=== PATIENT | female | born 1960 | race Caucasian/White ===

== ENCOUNTER → 2017-12-23 | Outpatient (CLI) | payer OTHER ==
--- NOTE | 2017-12-23 20:46 | MR ---
MR right elbow HISTORY: Abnormal bone growth, pain and swelling, limited range of motion Multiplanar multisequence imaging through the right elbow Correlation to plain film 11/22/2017 The calcification noted anterior to the elbow joint shows a corresponding focus which follows fat sig nal on all pulse sequences and measures 18 mm in greatest dimension osteoarthritic changes are noted within the elbow with marginal spurring, there is chondromalacia especially at the radial head grade 3 as well at the level of the coronoid process as there is likely grade 3 to grade IV chondromalacia with spurring. There is a normal insertion of triceps tendon, long head of biceps tendon. There is no rmal joint effusion. There is abnormal thickening of the soft tissues posterior to the elbow joint, s ome local fluid signal is present suggesting local cellulitis, phlegmon formation. No evident osteomy elitis. IMPRESSION: Osteoarthritis. Area of possible fat necrosis anterior to the elbow joint with peripheral calcification noted on plain film. Correlate for cellulitis, phlegmon posterior to the elbow.
== END | disposition home or self-care (01) ==
LOC: RADMRIMAIN 19:02
PROVIDERS: ATTEND Orthopaedic Surgery Hand Surgery
DX: M19.021 Primary osteoarthritis, right elbow (principal); Z48.89 Encounter for other specified surgical aftercare; Z98.890 Other specified postprocedural states

== ENCOUNTER 2018-07-22 08:36 | Day surgery (SDC) | payer OTHER ==
[2018-07-20 09:09] VITALS: BMI 33.8
[~2018-07-22 08:36] MED LIST: LACTATED RINGERS 1,000 ML IV SCH; LIDOCAINE 1% 20 ML VIAL (10MG/ML) FOR IV START INTRADERMA PRN
[2018-07-22 08:55] VITALS: RESP 18; TEMP 97.8
[2018-07-22 09:06] LABS: Glucose,Whole Blood 95 mg/dL (75-99)
[2018-07-22] MEDS ORDERED: LACTATED RINGERS 1,000 ML IV ONE (09:07)
[2018-07-22] MEDS ORDERED: LIDOCAINE 1% INJ 10MG/ML (20 ML MDV) ONE (09:48)
[2018-07-22] MEDS ORDERED: PROPOFOL 10 MG/ML 20 ML VIAL IV ONE (09:48)
--- NOTE | 2018-07-22 10:00 | P.PCN ---
Date of Procedure: 07/22/18 Procedure(s) Performed: BRIEF HISTORY: Patient is a 57-year-old, pleasant, white female, scheduled for an upper endoscopy as part of evaluation of long-standing history of GERD of several years duration. He said she has been having worsening symptoms. She has been on Prilosec 40 mg twice daily and Carafate 1 g 4 times daily with some improvement in his symptoms. She is scheduled for an upper endoscopy to rule out complicated reflux disease PROCEDURE PERFORMED: Esophagogastroduodenoscopy With biopsy PREOPERATIVE DIAGNOSIS: Long-standing history of GERD. IV sedation per anesthesia. PROCEDURE: After informed consent was obtained, the patient was brought into the endoscopy unit. IV sedation was administered by Anesthesia under continuous monitoring. Initially the Olympus GIF-140 video endoscope was inserted into the mouth. Esophagus intubated without any difficulty. It was gradually advanced into the stomach and duodenum and carefully examined. The bulb and the second part of the duodenum appeared normal. The scope at this time was withdrawn to the stomach, adequately insufflated with air, and upon careful examination, mucosa of the antrum linear tear severe erythema consistent with gastritis and biopsies were done from this area. The body, cardia and the fundus appeared normal. The scope was then withdrawn into the esophagus. Small to moderate size hiatal hernia noted. The GE junction was located at 36 cm from the incisors. The esophagus appeared normal. There were no erosions or ulcerations seen and the patient tolerated the procedure well. IMPRESSION: 1. Linear erythema in the antrum consistent with mild antral gastritis . 2. Small hiatal hernia but no evidence of esophagitis or Morris's esophagus]. RECOMMENDATIONS: The findings of this examination were discussed with the patient as well as her family. She was advised to follow with the biopsy results. She will continue with her current medications and follow antireflux measures
[2018-07-22 10:34] VITALS: BP 118/72; PULSE 69
== END 2018-07-22 10:45 | disposition home or self-care (01) ==
LOC: ORWHC2ENDO 08:36
PROVIDERS: ATTEND Internal Medicine Gastroenterology
DX: K21.9 Gastro-esophageal reflux disease without esophagitis (principal); K29.50 Unspecified chronic gastritis without bleeding; K44.9 Diaphragmatic hernia without obstruction or gangrene; J44.9 Chronic obstructive pulmonary disease, unspecified; E07.9 Disorder of thyroid, unspecified; Z79.890 Hormone replacement therapy; Z79.1 Long term (current) use of non-steroidal anti-inflammatories (NSAID); Z79.51 Long term (current) use of inhaled steroids; Z79.899 Other long term (current) drug therapy; Z88.6 Allergy status to analgesic agent; Z91.011 Allergy to milk products
CPT/HCPCS: 88305; 43239; J2001; J2704

== ENCOUNTER → 2018-09-21 | Outpatient (CLI) | payer OTHER ==
--- NOTE | 2018-09-21 15:58 | MR ---
EXAMINATION TYPE: MR shoulder RT wo con DATE OF EXAM: 09/21/2018 COMPARISON: Prior right shoulder MRI 04/24/2010 HISTORY: Rt. shoulder pain TECHNIQUE: Multiplanar, multisequence imaging of the right shoulder is performed without contrast. FINDINGS: Rotator Cuff: There is abnormal increased signal present at the insertion of the rotator cuff, partia l full-thickness tear of the supraspinatus tendon present, possible rim rent tear noted, there is abn ormal thickening of the rotator cuff fluid signal and irregularity of the tendon near the insertion. Acromioclavicular Joint: Arthropathy at the acromioclavicular joint causes mass effect on the musculo tendinous junction of supraspinatus. Glenohumeral Joint: There is some arthropathy change, remodeling of humeral head compatible with unde rlying arthropathy. Labrum: There is abnormal signal within the bony labrum, interval development of subchondral geodes i s suspected, labrum is irregular, suspect tear may be present on axial image 15 posterior labrum, dif ficult to exclude SLAP lesion, superior labrum shows a frayed appearance. . Biceps Tendon: Long head of biceps tendon shows a normal position which shows fluid signal surroundin g it. Bone marrow signal: Some probable pseudocyst formation present within the humeral head, previously de scribed cystic foci present within the bony labrum. Other: Possible distal acromial spur, there is a joint effusion IMPRESSION: Findings compatible with partial full-thickness tear the rotator cuff. Arthropathy glenohumeral joint with possible labral tear as described.
== END | disposition home or self-care (01) ==
LOC: RADMRIMAIN 12:18
PROVIDERS: ATTEND Orthopaedic Surgery
DX: M19.011 Primary osteoarthritis, right shoulder (principal); R53.1 Weakness; E03.9 Hypothyroidism, unspecified; D64.9 Anemia, unspecified; Z86.79 Personal history of other diseases of the circulatory system

== ENCOUNTER → 2019-05-31 | Outpatient (CLI) | payer OTHER ==
--- NOTE | 2019-05-31 14:03 | BD ---
EXAMINATION TYPE: Axial Bone Density DATE OF EXAM: 05/31/2019 COMPARISON: NONE CLINICAL HISTORY: Vitamin D deficiency, unspecified Height: 59 inches Weight: 182 FRAX RISK QUESTIONS: Alcohol (3 or more units per day): no Family History (Parent hip fracture): no Glucocorticoids (More than 3mos): yes, asthma inhaler (Ex: prednisone, prednisolone, methylprednisolone, dexamethasone, and hydrocortisone). History of Fracture in Adulthood: yes Secondary Osteoporosis: 1. Type 1 Diabetes: no 2. Hyperthyroidism: no 3. Menopause before 45: no 4. Malnutrition: no 5. Chronic liver disease: no Rheumatoid Arthritis: no Current Tobacco Use: no RISK FACTORS HISTORY OF: Family History of Osteoporosis: patient not aware of any Active: yes Diet low in dairy products/other sources of calcium: yes, milk protein allergy Postmenopausal woman: yes Take estrogen and/or progesterone medications: no Lost more than 2 inches in height since high school: no, not MORE than 2 inches states height at one time was about 5 ft-1 inch Frequent falls: patient states she can fall easily on rough ground outside, her balance is not there anymore on her left side Poor Health:" for the most part god health" Hyperparathyroidism: no Adrenal Insufficiency: no MEDICATIONS: Prednisone or other steroids: yes, asthma inhaler How Long: about 10 years Thyroid Medications: yes Which medication: Synthroid How Long: about 3-4 years Osteoporosis Medications: no Additional Medications: cholesterol med, Vitamin D Additional History: vitamin D deficiency, osteoarthritis, gout, high blood calcium EXAM MEASUREMENTS: Bone mineral densitometry was performed using the [employer] System. Bone mineral density as measured about the Lumbar spine is: ----- L1-L4(G/cm2): 1.368 T Score Values are as follows: ----- L2: 0.5 ----- L3: 2.3 ----- L4: 2.3 ----- L1-L4: 1.6 Bone mineral density BASELINE Bone mineral density about the R hip (g/cm2): 0.926 Bone mineral density about the L hip (g/cm2): 0.975 T Score values are as follows: -----R Neck: -0.8 -----L Neck: -0.5 -----R Total: -0.5 -----L Total: -0.5 Bone mineral density BASELINE IMPRESSION: Normal (Values between +1 and -1 indicate normal bone mass). Consider repeating this study in 5 year s or sooner if there is some new clinical indication. NOTE: T-SCORE=SD OF THE YOUNG ADULT MEAN.
== END | disposition home or self-care (01) ==
LOC: RADBDWWP 07:11
PROVIDERS: ATTEND Internal Medicine Endocrinology, Diabetes & Metabolism
DX: E55.9 Vitamin D deficiency, unspecified (principal)
CPT/HCPCS: 77080

== ENCOUNTER 2019-07-22 00:15 | Inpatient (IN) | payer OTHER ==
[2019-07-22] MEDS ORDERED: ACETAMINOPHEN TAB 325 MG TAB PO PRN (00:44)
[2019-07-22] MEDS ORDERED: VANCOMYCIN IV PER PHARMACY 1 EACH MISC MISCELLANE PRN (00:49)
[2019-07-22] MEDS ORDERED: VANCOMYCIN TROUGH DUE 1 EACH MISC MISCELLANE ONE (00:49)
[2019-07-22 01:06] VITALS: BMI 77.9
[2019-07-22] MEDS: PIPERACILLIN-TAZOBACTAM 3.375 GM in SODIUM CHLORIDE 0.9% 100 ML IVPB SCH ×3 (03:05→17:18)
[2019-07-22] MEDS: VANCOMYCIN 1,250 MG in SODIUM CHLORIDE 0.9% 250 ML IVPB SCH ×2 (04:42→16:30)
[2019-07-22 06:35] LABS: Appearance,Urine Clear (Clear); Bilirubin,Urine Negative (Negative); Blood,Urine Negative (Negative); Color,Urine Yellow; Glucose,Urine (UA) Negative (Negative); Ketones,Urine Negative (Negative); Leukocyte Esterase,Urine Negative (Negative); Nitrite,Urine Negative (Negative); PH, Urine 5.5 (5.0-8.0); Protein,Urine Negative (Negative); Specific Gravity,Urine 1.013 (1.001-1.035); Urobilinogen,Urine <2.0 mg/dL (<2.0)
[2019-07-22] MEDS: FUROSEMIDE 40 MG TAB PO SCH ×2 (08:16→15:12)
[2019-07-22] MEDS: GABAPENTIN 100 MG CAP PO SCH ×2 (08:16→11:50)
[2019-07-22] MEDS: ALLOPURINOL 300 MG TAB PO SCH (08:16)
[2019-07-22] MEDS: SYMBICORT 160-4.5 MCG INHALER INHALATION SCH ×2 (08:17→18:49)
[2019-07-22] MEDS: COLCHICINE 0.6 MG EACH PO SCH (08:17)
[2019-07-22] MEDS: THEOPHYLLINE 24 HOUR 300 MG CAP.ER.24H PO SCH (08:17)
[2019-07-22] MEDS: POTASSIUM BICARBONATE/CIT AC 20 MEQ TABLET.EFF PO SCH ×5 (08:17→20:28)
[2019-07-22] MEDS: SUCRALFATE 1 GM TAB PO SCH ×4 (08:18→20:30)
[2019-07-22] MEDS: PANTOPRAZOLE 40 MG TABLET PO SCH (08:24)
[2019-07-22 09:00] LABS: Anisocytosis Slight; Basophils # (A) 0.1 k/uL (0-0.2); Basophils % (A) 1 %; Eosinophils # (A) 0.1 k/uL (0-0.7); Eosinophils % (A) 2 %; HCT 34.3 % (34.0-46.0); Lymphocytes # (A) 0.4 k/uL (1.0-4.8); Lymphocytes % (A) 5 %; MCH 28.3 pg (25.0-35.0); MCHC 32.1 g/dL (31.0-37.0); MCV 88.3 fL (80.0-100.0); Mean Platelet Volume 6.7; Monocytes # (A) 0.3 k/uL (0-1.0); Monocytes % (A) 4 %; Neutrophils # (A) 6.2 k/uL (1.3-7.7); Neutrophils % (A) 88 %; Platelet Count 187 k/uL (150-450); RBC 3.88 m/uL (3.80-5.40); RDW 16.9 % (11.5-15.5); WBC 7.1 k/uL (3.8-10.6)
[2019-07-22] MEDS ORDERED: LEVOTHYROXINE 25 MCG TAB PO SCH (09:00)
[2019-07-22 09:08] LABS: African American GFR (CKD) >90 (>60 ml/min/1.73 sqM); Anion Gap 9 mmol/L; Blood Urea Nitrogen 12 mg/dL (7-17); Calcium 8.6 mg/dL (8.4-10.2); Carbon Dioxide 22 mmol/L (22-30); Chloride 106 mmol/L (98-107); Glucose 224 mg/dL (74-99); Sodium 137 mmol/L (137-145)
--- NOTE | 2019-07-22 14:58 | XR ---
EXAMINATION TYPE: XR tibia fibula RT DATE OF EXAM: 07/22/2019 CLINICAL HISTORY: pain TECHNIQUE: AP and lateral images of the right tibia and fibula are obtained. COMPARISON: None. FINDINGS: There is no acute fracture/dislocation evident. The joint spaces appear mildly narrowed. The overlying soft tissue appears unremarkable. IMPRESSION: There is no acute fracture or dislocation seen. ICD 10 NO FRACTURE, INITIAL EVALUATION
--- NOTE | 2019-07-22 15:14 | HP ---
HISTORY AND PHYSICAL DATE OF SERVICE: 07/22/2019 CHIEF COMPLAINT: Pain and swelling of the right calf area. HISTORY OF PRESENT ILLNESS: This is a 58-year-old woman with a past history of asthma, COPD, GERD, hypertension, hyperlipidemia, history of hypoglycemia, history of gout, hiatal hernia, history of nicotine dependence, being followed by primary physician elsewhere, was complaining of right leg pain and swelling. The patient also had headache, fever, and other medical issues and patient in [facility]. The patient was treated with some possible sepsis. The patient also had lactic acidosis at 4.1 with IV fluids improved to 1.4, but; however, a lumbar puncture could not be completed and the patient was referred to [facility] for further evaluation and treatment. Encephalitis also suspected at this time. Broad-spectrum IV antibiotics has been initiated. There is no history of any headache, loss of consciousness, nausea or chest pain or hematochezia or melena at this time. The patient had puncture at work, a broken fiberglass cart hit her calf according to her. The patient is followed by Nika Aranda in the outpatient setting. PAST MEDICAL HISTORY: History of asthma, COPD, GERD, hyperlipidemia, DJD, hypothyroid, hypoglycemia, gout. MEDICATIONS: Prior to admission include, home medications are: 1. level Xopenex HFA 4 puffs q.4 p.r.n. 2. Theophylline 300 mg p.o. b.i.d. 3. Bactrim DS 1 p.o. b.i.d. which was started recently for the infection. 4. Carafate 1 g p.o. q.i.d. 5. Zocor 40 mg q.h.s. 6. Mirapex 0.5 mg q.h.s. 7. Prilosec 20 mg p.o. b.i.d. 8. Singulair 10 mg q.h.s. 9. Mobic 15 mg p.o. q.a.m. 10.Synthroid 50 mcg p.o. daily. 11.Neurontin 300 mg p.o. q.h.s. 12.Lasix 40 mg p.o. b.i.d. 13.Colcrys 0.6 mg p.o. daily. 14.Symbicort 160/4.5 two puffs b.i.d. 15.Zyloprim 600 mg q.a.m. ALLERGIES: MILK, ASPIRIN. FAMILY HISTORY: History of lung cancer in the family. SOCIAL HISTORY: Previous history of smoking. No history of current smoking or alcohol intake. REVIEW OF SYSTEMS: ENT: No diminished hearing, diminished vision. CARDIOVASCULAR: No angina. RESPIRATION: No cough. GI: As mentioned earlier. : No dysuria. NERVOUS SYSTEM: No numbness or weakness. ALLERGY/IMMUNOLOGY: As mentioned earlier. HEMATOLOGY/ONCOLOGY: No history of anemia. ENDOCRINE: No history of diabetes or hypothyroidism. CONSTITUTIONAL: As mentioned earlier. DERMATOLOGY: Negative. PSYCHIATRY: As mentioned earlier. PHYSICAL EXAMINATION: Alert and oriented x3, pulse 78, blood pressure 107/64, respiration 18, temperature 99.2, pulse ox 96% on room air. HEENT: Conjunctivae normal. Oral mucosa moist. NECK: No jugular venous distention. No lymph node enlargement. CARDIOVASCULAR SYSTEM: S1, S2, muffled. RESPIRATORY: Breath sounds diminished at the bases. A few scattered rhonchi, no crackles. Expiratory wheezing also present. ABDOMEN: Soft, nontender. No mass palpable. LEGS: Right calf area tenderness and erythema. Evidence of cellulitis and possible abscess. Otherwise, pulse felt normally. NERVOUS SYSTEM: Higher functions as mentioned earlier. Moves all 4 limbs. No focal motor deficits. LYMPHATICS: No lymph node enlargement in the neck or axillae. SKIN: As mentioned earlier. JOINTS: No active arthropathy. LABS: WBC is 7.2, hemoglobin is 11, sodium 130, potassium 3. ASSESSMENT: 1. Right calf infection, cellulitis, possible abscess with sepsis, present on admission. 2. Hypokalemia. 3. Anemia, normocytic anemia of chronic disease. 4. Increased random blood sugar, possibly diabetes mellitus type 2. 5. History of asthma. 6. History of chronic obstructive pulmonary disease. 7. Gastroesophageal reflux disease. 8. Hyperlipidemia. 9. History of degenerative joint disease. 10.History of hypothyroidism. 11.History of gout. 12.History of hiatal hernia. 13.History of adenoidectomy. 14.History of degenerative joint disease. 15.Remote history of nicotine dependence. RECOMMENDATION: In this 58-year-old woman who presented with multiple complex medical issues, will monitor the patient closely, continue with the current management and symptomatic treatment. We will initiate broad-spectrum IV antibiotics and I would also recommend Orthopedic Surgery evaluation. I would also recommend x-ray of the calf to rule out the possibility of a foreign body as well. The prognosis guarded because of multiple complex medical issues. The patient is on Zosyn and vancomycin. See orders. Will obtain the cultures, resume the home medications. Monitor blood sugars closely. Will check the hemoglobin A1c to rule out the possibility of any diabetes mellitus. Otherwise, continue to monitor. Guarded prognosis. A copy of this forwarded to Dr. Nika Aranda who is following the patient. MMODL / IJN: [id number] /
[2019-07-22] MEDS ORDERED: ALBUTEROL NEBULIZED 2.5 MG/3 ML INHALATION PRN (16:00)
--- NOTE | 2019-07-22 17:04 | P.CNOR ---
<José MiguelRadha perry - Last Filed: 07/22/19 16:45> History of Present Illness - [facility] Consult date: 07/22/19 Consult reason: other (Right leg wound/cellulitis) History of present illness: The patient is a 58-year-old female with a history of asthma, COPD, GERD, hypertension, hyperlipidemia, gout, hypoglycemia, and nicotine dependence, who presented to [facility] after transferred from [facility] for possible sepsis. The patient was found to have a leg acid level IV.1 that improved with IV fluids to 1.4. A lumbar puncture was needed and she was transferred here for further evaluation and care. Orthopedics was consulted for further evaluation of her right leg wound. Patient states that she backed into a fiberglass cart at [facility] approximately 2 months ago and cut her right calf. She states that she put a Band-Aid over the area. The area continued to not heal and over the last couple weeks she is applied a salve to draw out the pus. The patient's and the patient states that the area seemed pretty deep and "lots of pus came out of the wound." The patient doesn't also states that she had a fever 2 weeks ago only for a day and fever seemed to resolve after 1 dose of Tylenol. Yesterday, the patient states that she was not feeling well and took her temperature and it was 103 and went to the emergency department at [facility]. Today, the patient states she is feeling slightly better but still has pain upon touch of the right calf. She denies numbness or tingling in the leg and is able to ambulate on the leg without difficulty. The only time she has pain is when pressures directly applied to the area. Review of Systems Constitutional: Reports chills, Reports fever, Reports malaise Cardiovascular: Denies chest pain, Denies shortness of breath Respiratory: Denies cough Gastrointestinal: Denies diarrhea, Denies nausea, Denies vomiting Musculoskeletal: right: as per HPI Past Medical History Past Medical History: Asthma, COPD, GERD/Reflux, Hyperlipidemia, Osteoarthritis (OA), Thyroid Disorder Additional Past Medical History / Comment(s): HYPOGLYCEMIA, GOUT, HIATAL HERNIA, STATES LOW POTASSIUM, STATES SPOT ON HER ESOPHAGUS , HX OF LOW IRON., ARTHRITIS IN KNEES., OCCASIONAL SOB. History of Any Multi-Drug Resistant Organisms: None Reported Past Surgical History: Adenoidectomy, Section, Hysterectomy, Orthopedic Surgery, Tonsillectomy Additional Past Surgical History / Comment(s): Rt hand tendon repair. Left eye "muscle cut". Gera carpal tunnel. Left knee arthroscopy. HEMORROIDECTOMY. Past Anesthesia/Blood Transfusion Reactions: Motion Sickness, Postoperative Na usea & Vomiting (PONV) Past Psychological History: No Psychological Hx Reported Smoking Status: Former smoker Past Alcohol Use History: None Reported Additional Past Alcohol Use History / Comment(s): QUIT SMOKING IN 2006, STARTED SMOKING AGE 13- SMOKED 1 1/2-2PPD Past Drug Use History: None Reported - Past Family History Father Family Medical History: Cancer Additional Family Medical History / Comment(s): LUNG CANCER Mother Family Medical History: Cancer Additional Family Medical History / Comment(s): BLADDER CANCER Medications and Allergies Home Medications Medication Instructions Recorded Confirmed Type Allopurinol [Zyloprim] 600 mg PO QAM 04/13/15 07/22/19 History Budesonide/Formoterol Fumarate 2 puff INHALATION RT-BID 04/13/15 07/22/19 History [Symbicort 160-4.5 Mcg Inhaler] Colchicine [Colcrys] 0.6 mg PO DAILY 04/13/15 07/22/19 History Furosemide [Lasix] 40 mg PO BID 04/13/15 07/22/19 History Gabapentin [Neurontin] 300 mg PO HS 04/13/15 07/22/19 History Meloxicam [Mobic] 15 mg PO QAM 04/13/15 07/22/19 History Montelukast Sodium [Singulair] 10 mg PO HS 04/13/15 07/22/19 History Omeprazole [PriLOSEC] 20 mg PO BID 04/13/15 07/22/19 History Simvastatin [Zocor] 40 mg PO HS 04/13/15 07/22/19 History Sucralfate [Carafate] 1 gm PO QID 04/13/15 07/22/19 History Theophylline 12 Hour [Ishan-Dur] 300 mg PO BID 04/13/15 07/22/19 History Pramipexole [Mirapex] 0.5 mg PO HS 07/20/18 07/22/19 History Levalbuterol Hfa Inhaler [Xopenex 4 puff INHALATION RT-Q4H PRN 07/22/19 07/22/19 History Hfa Inhaler] Levothyroxine Sodium [Synthroid] 50 mcg PO DAILY 07/22/19 07/22/19 History Sulfamethox-Tmp 800-160Mg [Bactrim 1 tab PO BID 07/22/19 07/22/19 History DS 800-160 mg] Allergies Allergy/AdvReac Type Severity Reaction Status Date / Time milk Allergy Dyspnea,swe Verified 07/22/19 08:04 lling aspirin AdvReac Abdominal Verified 07/22/19 08:04 Pain, headache Physical Examination The patient does not appear in acute distress. Alert and orientated x3. There is a small puncture wound to the posterior right leg, in the calf area. There is a scab and no active drainage at this time. There is an erythema surrounding the puncture wound. No focal fluctuance noted or superficial abscess palpated. There is tenderness around the puncture site. Calf is soft and nontender. Good foot and ankle motion without difficulty. Sensation and circulatory status is intact. Results X-rays of the right tib-fib reveal no obvious foreign body or acute fracture seen.. - Labs Labs: Abnormal Lab Results - Last 24 Hours (Table) 07/22/19 07/22/19 Range/Units 08:30 08:30 Hgb 11.0 L (11.4-16.0) gm/dL RDW 16.9 H (11.5-15.5) % Lymphocytes # 0.4 L (1.0-4.8) k/uL Potassium 3.0 L (3.5-5.1) mmol/L Glucose 224 H (74-99) mg/dL H & H 07/22/19 Range/Units 08:30 Hgb 11.0 L (11.4-16.0) gm/dL Hct 34.3 (34.0-46.0) % Result Diagrams: 07/22/19 08:30 07/22/19 08:30 Assessment and Plan (1) Leg wound, right Current Visit: Yes Status: Acute Code(s): S81.801A - UNSPECIFIED OPEN WOUND, RIGHT LOWER LEG, INITIAL ENCOUNTER SNOMED Code(s): 706114475 (2) Cellulitis of right lower leg Current Visit: Yes Status: Acute Code(s): L03.115 - CELLULITIS OF RIGHT LOWER LIMB SNOMED Code(s): 328454658 (3) Sepsis Current Visit: Yes Status: Acute Code(s): A41.9 - SEPSIS, UNSPECIFIED ORGANISM SNOMED Code(s): 12342565 Plan: The clinical and x-ray findings were discussed with the patient and the family at the bedside. The case was also discussed at length with Dr. Stover. We will await recommendations from infectious disease. A CT of the right lower leg will be ordered with contrast to further evaluate for deep abscess. She will be placed NPO tonight pending CT results for possible I &D tomorrow afternoon. We will continue to follow the patient closely and make further recommendations after the CT scan. <Alan Stover - Last Filed: 07/22/19 20:12> Results - Labs Labs: Abnormal Lab Results - Last 24 Hours (Table) 07/22/19 07/22/19 Range/Units 08:30 08:30 Hgb 11.0 L (11.4-16.0) gm/dL RDW 16.9 H (11.5-15.5) % Lymphocytes # 0.4 L (1.0-4.8) k/uL Potassium 3.0 L (3.5-5.1) mmol/L Glucose 224 H (74-99) mg/dL H & H 07/22/19 Range/Units 08:30 Hgb 11.0 L (11.4-16.0) gm/dL Hct 34.3 (34.0-46.0) % Result Diagrams: 07/22/19 08:30 07/22/19 08:30 Assessment and Plan Plan: Discussed with SUSHILA Toledo and agree with above. Patient was subsequently seen and examined by myself as well. S: She states the pain in the leg is quite mild at this point and mostly only bothers her when there is pressure on the wound. O: Small erythematous foci in the posterior aspect of the mid calf approximately 2 cm in diameter. There is no open wound/draining wound. Mild tenderness to palpation. No subcutaneous fluctuance. No pain with active dorsiflexion or plantarflexion. Imaging CT scan of the right leg demonstrates no appreciable abscess or focal fluid collection. No significant fat stranding or or signs of subcutaneous inflammation or edema. No retained foreign bodies identified. A: 1. Right leg pain with remote history of puncture wound P: I discussed the clinical findings in detail with the patient and her family. Her exam and imaging are not at all concerning for significant infectious process. It would be highly unlikely that this would be a source causing a systemic response. Recommended continued observation and symptomatic treatment. I encouraged her to ambulate as tolerated. She may try warm hand or cold compresses for symptomatic relief. No need for surgical intervention at this time. She expressed understanding and agreement with the proposed plan. We will continue to monitor her clinical progress. Thank you for allowing me to participate in the care of this patient. Alan Stover D.O. [facility]
[2019-07-22] MEDS ORDERED: Magnesium Replacement Protocol 1 EACH MISC MISCELLANE PRN (18:07)
[2019-07-22] MEDS ORDERED: Potassium Replacement Protocol 1 EACH MISC MISCELLANE PRN (18:07)
[2019-07-22] MEDS ORDERED: HYDROcodone/APAP 5-325MG 1 EACH TAB PO PRN (18:08)
[2019-07-22] MEDS ORDERED: TEMAZEPAM 15 MG CAP PO PRN (18:08)
[2019-07-22] MEDS ORDERED: ALPRAZolam 0.25 MG TAB PO PRN (18:08)
[2019-07-22] MEDS ORDERED: HYDROmorphone 0.5 MG/0.5 ML SYRINGE IVP PRN (18:08)
--- NOTE | 2019-07-22 18:34 | CT ---
EXAMINATION TYPE: CT lower leg RT w con DATE OF EXAM: 07/22/2019 COMPARISON: None HISTORY: Pt hx of foreign body in RT leg, mid posterior calf. Eval for deep abscess CT DLP: 840.50 mGycm Automated exposure control for dose reduction was used. CONTRAST: Performed with IV Contrast, patient injected with 100 mL of Isovue 300. FINDINGS: Multiple axial sections were obtained from the distal femur to the mid calcaneus without contrast. The tibia and fibula appear intact. There is hypertrophic osteoarthritis of the knee joint with spurr ing of the femoral and tibial condyles. There is small knee joint effusion. Ankle mortise is anatomic . There is spurring on the patella. There are atherosclerotic vascular calcifications. I see no defin ite radiopaque foreign body. There is subcutaneous edema around the lower leg. There is no pathologic fluid collection. There are a few varicose veins of the lower leg. There is no pathologic enhancemen t. There is arterial flow in the popliteal and tibial artery. IMPRESSION: Osteoarthritis in the knee joint. Small knee joint effusion. Minimal subcutaneous edema. No evidence of an abscess.
[2019-07-22] MEDS: HEPARIN SODIUM,PORCINE 5,000 UNIT/ML 1 ML VIAL SQ SCH (20:29)
[2019-07-22] MEDS: MONTELUKAST 10 MG TAB PO SCH (20:29)
[2019-07-22] MEDS: GABAPENTIN 300 MG CAP PO SCH (20:30)
[2019-07-22] MEDS: CITALOPRAM HYDROBROMIDE 10 MG TAB PO SCH (20:30)
[2019-07-22] MEDS: ATORVASTATIN 20 MG TAB PO SCH (20:30)
[2019-07-22] MEDS: PRAMIPEXOLE 0.5 MG TAB PO SCH (20:31)
[2019-07-22 21:05] LABS: Glucose,Whole Blood 122 mg/dL (75-99)
[2019-07-22] MEDS: INSULIN ASPART (NovoLOG) 100 UNIT/ML VIAL SQ SCH (21:19)
[2019-07-22] MEDS: 0.9% NACL WITH KCL 40 MEQ/L 1,000 ML IV SCH (22:22)
[2019-07-23] MEDS: PIPERACILLIN-TAZOBACTAM 3.375 GM in SODIUM CHLORIDE 0.9% 100 ML IVPB SCH ×3 (01:15→19:49)
[2019-07-23 03:53] LABS: Hemoglobin A1C 5.4 % (4.0-6.0)
[2019-07-23] MEDS: VANCOMYCIN 1,250 MG in SODIUM CHLORIDE 0.9% 250 ML IVPB SCH ×2 (06:13→16:46)
[2019-07-23] MEDS: LEVOTHYROXINE 50 MCG TAB PO SCH (06:13)
[2019-07-23 07:12] LABS: Glucose,Whole Blood 125 mg/dL (75-99)
[2019-07-23] MEDS: SYMBICORT 160-4.5 MCG INHALER INHALATION SCH ×2 (07:13→20:20)
[2019-07-23] MEDS: INSULIN ASPART (NovoLOG) 100 UNIT/ML VIAL SQ SCH ×2 (07:33→12:08)
[2019-07-23] MEDS: COLCHICINE 0.6 MG EACH PO SCH (07:34)
[2019-07-23] MEDS: GABAPENTIN 100 MG CAP PO SCH ×2 (07:34→11:27)
[2019-07-23] MEDS: ALLOPURINOL 300 MG TAB PO SCH (07:34)
[2019-07-23] MEDS: THEOPHYLLINE 24 HOUR 300 MG CAP.ER.24H PO SCH (07:34)
[2019-07-23] MEDS: PANTOPRAZOLE 40 MG TABLET PO SCH (07:35)
[2019-07-23] MEDS: HEPARIN SODIUM,PORCINE 5,000 UNIT/ML 1 ML VIAL SQ SCH ×2 (07:35→20:56)
[2019-07-23] MEDS: FUROSEMIDE 40 MG TAB PO SCH ×2 (07:35→15:42)
[2019-07-23] MEDS: POTASSIUM BICARBONATE/CIT AC 20 MEQ TABLET.EFF PO SCH ×4 (07:35→21:06)
[2019-07-23] MEDS: SUCRALFATE 1 GM TAB PO SCH ×4 (07:36→21:05)
[2019-07-23] MEDS: 0.9% NACL WITH KCL 40 MEQ/L 1,000 ML IV SCH ×2 (07:37→19:49)
--- NOTE | 2019-07-23 10:06 | P.PN ---
Subjective Progress Note Date: 07/23/19 Principal diagnosis: Right leg wound The patient is a 58 y/o who presented to the hospital with sepsis and right leg puncture wound. A CT of the right lower leg was obtained yesterday that revealed no fluid collection or deep abscess in the leg. Infectious disease is on consult as well. No surgical intervention is planned from our standpoint. Today, the patient states she is feeling better today. No recent fevers. Pain is controlled at this time. No new complaints today. Objective - Vital Signs Vital signs: Vital Signs Temp 98.7 F 07/23/19 05:30 Pulse 73 07/23/19 05:30 Resp 16 07/23/19 08:00 BP 108/65 07/23/19 05:30 Pulse Ox 98 07/23/19 05:30 Intake & Output 07/22/19 07/23/19 07/23/19 18:59 06:59 18:59 Intake Total 200 Balance 200 Intake: Oral 200 Other: Voiding Method Toilet Toilet Toilet # Voids 2 1 - Exam The patient does not appear in acute distress. She is alert and oriented 3. There is a healing small puncture wound to the posterior leg, in the calf area. There is a scab and no active drainage present. There is erythema surrounding the puncture wound. No focal fluctuance noted or superficial abscess palpated. There is tenderness around the puncture site. Calf is soft and nontender. Good foot and ankle motion without difficulty. Sensation circulatory status is intact. - Labs CBC & Chem 7: 07/22/19 08:30 07/22/19 08:30 Labs: Abnormal Lab Results - Last 24 Hours (Table) 07/22/19 07/23/19 Range/Units 21:04 07:09 POC Glucose (mg/dL) 122 H 125 H (75-99) mg/dL Microbiology - Last 24 Hours (Table) 07/22/19 02:12 Blood Culture - Preliminary Blood No Growth after 24 hours Assessment and Plan (1) Leg wound, right Current Visit: Yes Status: Acute Code(s): S81.801A - UNSPECIFIED OPEN WOUND, RIGHT LOWER LEG, INITIAL ENCOUNTER SNOMED Code(s): 590214208 (2) Cellulitis of right lower leg Current Visit: Yes Status: Acute Code(s): L03.115 - CELLULITIS OF RIGHT LOWER LIMB SNOMED Code(s): 844228289 (3) Sepsis Current Visit: Yes Status: Acute Code(s): A41.9 - SEPSIS, UNSPECIFIED ORGANISM SNOMED Code(s): 61561317 Plan: The clinical and CT findings were discussed with the patient at the bedside. The case was also discussed at length with Dr. Stover. No superficial or deep infection surgical intervention is planned. Continue pain control if needed. Await recommendations from infectious disease and internal medicine. We will follow the patient peripherally and would be happy to reevaluate the patient if her condition changes.
[2019-07-23 10:11] LABS: Anisocytosis Slight; Basophils % (A) 1 %; Eosinophils # (A) 0.3 k/uL (0-0.7); Eosinophils % (A) 5 %; HCT 34.8 % (34.0-46.0); HGB 11.3 gm/dL (11.4-16.0); Lymphocytes # (A) 0.8 k/uL (1.0-4.8); Lymphocytes % (A) 17 %; MCH 28.6 pg (25.0-35.0); MCHC 32.6 g/dL (31.0-37.0); MCV 87.6 fL (80.0-100.0); Monocytes # (A) 0.3 k/uL (0-1.0); Monocytes % (A) 5 %; Neutrophils # (A) 3.4 k/uL (1.3-7.7); Neutrophils % (A) 70 %; Platelet Count 174 k/uL (150-450); RBC 3.97 m/uL (3.80-5.40); RDW 16.8 % (11.5-15.5); WBC 4.8 k/uL (3.8-10.6)
--- NOTE | 2019-07-23 10:12 | P.CONS ---
History of Present Illness - Reason for Consult Consult date: 07/22/19 Right posterior leg cellulitis Requesting physician: Nani Rose - Chief Complaint Right posterior leg pain and fever - History of Present Illness Patient is a 58-year-old female who was transferred from [facility] for further management of possible sepsis and need for LP in this patient who did have a history of injury to the right posterior cough after the patient backed up into a fiberglass cart at the local area [facility] about 2 months ago patient said that she did have a small puncture wound that she Band- Aid it subsequently she has been complaining of lots of pus coming out of that area with associated pain. Describing to be throbbing, 78 out of 10 and no radiation patient had did have a fever with chills for the patient went to [facility] the patient did have elevated lactic acid of 4.1 that apparently did improve down to 1.4 with IV fluid patient subsequently was transferred to this facility she did have x-rays of the right cough did not show any bony changes or foreign body patient did have low-grade fever 100.2 however her white count was normal and UA was negative patient has been started on vancomycin and Zosyn and infectious disease was consulted for further recommendation CT of the right leg has been ordered which is currently in process Review of Systems Positive points has been mentioned in HPI rest of the systems are negative Past Medical History Past Medical History: Asthma, COPD, GERD/Reflux, Hyperlipidemia, Osteoarthritis (OA), Thyroid Disorder Additional Past Medical History / Comment(s): HYPOGLYCEMIA, GOUT, HIATAL HERNIA, STATES LOW POTASSIUM, STATES SPOT ON HER ESOPHAGUS , HX OF LOW IRON., ARTHRITIS IN KNEES., OCCASIONAL SOB. History of Any Multi-Drug Resistant Organisms: None Reported Past Surgical History: Adenoidectomy, Section, Hysterectomy, Orthopedic Surgery, Tonsillectomy Additional Past Surgical History / Comment(s): Rt hand tendon repair. Left eye "muscle cut". Gera carpal tunnel. Left knee arthroscopy. HEMORROIDECTOMY. Past Anesthesia/Blood Transfusion Reactions: Motion Sickness, Postoperative Nausea & Vomiting (PONV) Past Psychological History: No Psychological Hx Reported Smoking Status: Former smoker Past Alcohol Use History: None Reported Additional Past Alcohol Use History / Comment(s): QUIT SMOKING IN 2006, STARTED SMOKING AGE 13- SMOKED 1 1/2-2PPD Past Drug Use History: None Reported - Past Family History Father Family Medical History: Cancer Additional Family Medical History / Comment(s): LUNG CANCER Mother Family Medical History: Cancer Additional Family Medical History / Comment(s): BLADDER CANCER Medications and Allergies Home Medications Medication Instructions Recorded Confirmed Type Allopurinol [Zyloprim] 600 mg PO QAM 04/13/15 07/22/19 History Budesonide/Formoterol Fumarate 2 puff INHALATION RT-BID 04/13/15 07/22/19 History [Symbicort 160-4.5 Mcg Inhaler] Colchicine [Colcrys] 0.6 mg PO DAILY 04/13/15 07/22/19 History Furosemide [Lasix] 40 mg PO BID 04/13/15 07/22/19 History Gabapentin [Neurontin] 300 mg PO HS 04/13/15 07/22/19 History Meloxicam [Mobic] 15 mg PO QAM 04/13/15 07/22/19 History Montelukast Sodium [Singulair] 10 mg PO HS 04/13/15 07/22/19 History Omeprazole [PriLOSEC] 20 mg PO BID 04/13/15 07/22/19 History Simvastatin [Zocor] 40 mg PO HS 04/13/15 07/22/19 History Sucralfate [Carafate] 1 gm PO QID 04/13/15 07/22/19 History Theophylline 12 Hour [Ishan-Dur] 300 mg PO BID 04/13/15 07/22/19 History Pramipexole [Mirapex] 0.5 mg PO HS 07/20/18 07/22/19 History Levalbuterol Hfa Inhaler [Xopenex 4 puff INHALATION RT-Q4H PRN 07/22/19 07/22/19 History Hfa Inhaler] Levothyroxine Sodium [Synthroid] 50 mcg PO DAILY 07/22/19 07/22/19 History Sulfamethox-Tmp 800-160Mg [Bactrim 1 tab PO BID 07/22/19 07/22/19 History DS 800-160 mg] Allergies Allergy/AdvReac Type Severity Reaction Status Date / Time milk Allergy Dyspnea,swe Verified 07/22/19 08:04 lling aspirin AdvReac Abdominal Verified 07/22/19 08:04 Pain, headache Physical Exam Vitals: Vital Signs Temp Pulse Resp BP Pulse Ox 07/22/19 15:00 99.0 F 79 20 109/64 97 07/22/19 14:48 18 07/22/19 08:00 18 07/22/19 04:25 99.2 F 78 18 107/64 96 07/22/19 03:04 98.9 F 07/22/19 00:45 100.2 F H 97 20 102/65 Intake and Output 07/22/19 07/22/19 07/22/19 06:59 14:59 22:59 Intake Total 200 Output Total 600 Balance -600 200 Intake: Oral 200 Output: Urine 600 Other: Voiding Method Toilet # Voids 1 2 Weight 82 kg GENERAL DESCRIPTION: Middle-aged female lying in bed, no distress. No tachypnea or accessory muscle of respiration use. HEENT: Shows Pallor , no scleral icterus. Oral mucous membrane is dry. No pharyngeal erythema or thrush NECK: Trachea central, no thyromegaly. LUNGS: Unlabored breathing. Clear to auscultation anteriorly. No wheeze or crackle. HEART: S1, S2, regular rate and rhythm. No loud murmur ABDOMEN: Soft, no tenderness , guarding or rigidity, no organomegaly EXTREMITIES: Right posterior leg had did have a small puncture wound with minimal surrounding erythema no fluctuation induration was noticed that the area was tender to touch SKIN: No rash, no masses palpable. NEUROLOGICAL: The patient is awake, alert, oriented x3, mood and affect normal. Results CBC & Chem 7: 07/22/19 08:30 07/22/19 08:30 Labs: Abnormal Lab Results - Last 24 Hours (Table) 07/22/19 07/22/19 Range/Units 08:30 08:30 Hgb 11.0 L (11.4-16.0) gm/dL RDW 16.9 H (11.5-15.5) % Lymphocytes # 0.4 L (1.0-4.8) k/uL Potassium 3.0 L (3.5-5.1) mmol/L Glucose 224 H (74-99) mg/dL Assessment and Plan Assessment: 1-patient with right posterior calf puncture wound with secondary cellulitis likely from gram-positive skin sami on clinical examination the wound does not seem to be deep however underlying abscess are not entirely excluded awaiting CT of the leg (1) Cellulitis of right lower leg Current Visit: Yes Status: Acute Code(s): L03.115 - CELLULITIS OF RIGHT LOWER LIMB SNOMED Code(s): 205328830 Plan: 1--vancomycin pharmacy to dose target trough of 15 while watching her kidney fu nction and Vanco trough closely 2-discontinue the Zosyn as less likely gram-negative infection and to decrease risk of nephrotoxicity 3-await CT of the right leg currently in process we will follow on clinical condition and culture to further adjust medication if needed Thank you for this consultation will follow this patient along with you Time with Patient: Greater than 30
[2019-07-23 10:21] LABS: African American GFR (CKD) >90 (>60 ml/min/1.73 sqM); Anion Gap 7 mmol/L; Blood Urea Nitrogen 12 mg/dL (7-17); Carbon Dioxide 29 mmol/L (22-30); Chloride 105 mmol/L (98-107); Glucose 167 mg/dL (74-99); Magnesium 2.1 mg/dL (1.6-2.3); Potassium 3.5 mmol/L (3.5-5.1); Sodium 141 mmol/L (137-145)
--- NOTE | 2019-07-23 10:56 | XR ---
EXAMINATION TYPE: XR chest 2V DATE OF EXAM: 07/23/2019 COMPARISON: 08/03/2018 HISTORY: Shortness of breath TECHNIQUE: Frontal and lateral views of the chest are obtained. FINDINGS: Scattered senescent parenchymal changes noted. Hyperinflation compatible with COPD. No evidence for infiltrate. No evidence for atelectasis. Heart size is stable. Mediastinal structures are stable and grossly unremarkable. No evidence for hilar prominence. Degenerative changes dorsal spine. IMPRESSION: 1. No evidence for acute pulmonary disease.
[2019-07-23 11:52] LABS: Glucose,Whole Blood 80 mg/dL (75-99)
--- NOTE | 2019-07-23 17:16 | P.PN ---
Subjective Progress Note Date: 07/23/19 58-year-old female who was transferred from [facility] for further management of possible sepsis and need for LP in this patient who did have a history of injury to the right posterior cough after the patient backed up into a fiberglass cart at the local area [facility] about 2 months ago patient said that she did have a small puncture wound that she Band-Aid it subsequently she has been complaining of lots of pus coming out of that area with associated pain. Describing to be throbbing, 78 out of 10 and no radiation patient had did have a fever with chills for the patient went to [facility] the patient did have elevated lactic acid of 4.1 that apparently did improve down to 1.4 with IV fluid patient subsequently was transferred to this facility she did have x-rays of the right cough did not show any bony changes or foreign body patient did have low-grade fever 100.2 however her white count was normal and UA was negative patient has been started on vancomycin and Zosyn Objective - Vital Signs Vital signs: Vital Signs Temp 98.7 F 07/23/19 05:30 Pulse 73 07/23/19 05:30 Resp 16 07/23/19 08:00 BP 108/65 07/23/19 05:30 Pulse Ox 98 07/23/19 05:30 Intake & Output 07/22/19 07/23/19 07/23/19 18:59 06:59 18:59 Intake Total 200 Balance 200 Intake: Oral 200 Other: Voiding Method Toilet Toilet Toilet # Voids 2 1 - Exam PHYSICAL EXAMINATION: GENERAL: The patient is alert and oriented x3, not in any acute distress. Well developed, well nourished. HEENT: Pupils are round and equally reacting to light. EOMI. No scleral icterus. No conjunctival pallor. Normocephalic, atraumatic. No pharyngeal erythema. No thyromegaly. CARDIOVASCULAR: S1 and S2 present. No murmurs, rubs, or gallops. PULMONARY: Chest is clear to auscultation, no wheezing or crackles. ABDOMEN: Soft, nontender, nondistended, normoactive bowel sounds. No palpable organomegaly. MUSCULOSKELETAL: No joint swelling or deformity. EXTREMITIES: No cyanosis, clubbing, or pedal edema. NEUROLOGICAL: Gross neurological examination did not reveal any focal deficits. SKIN: No rashes. - Labs CBC & Chem 7: 07/23/19 09:37 07/23/19 09:37 Labs: Abnormal Lab Results - Last 24 Hours (Table) 07/22/19 07/23/19 07/23/19 Range/Units 21:04 07:09 09:37 Hgb 11.3 L (11.4-16.0) gm/dL RDW 16.8 H (11.5-15.5) % Lymphocytes # 0.8 L (1.0-4.8) k/uL Glucose (74-99) mg/dL POC Glucose (mg/dL) 122 H 125 H (75-99) mg/dL 07/23/19 Range/Units 09:37 Hgb (11.4-16.0) gm/dL RDW (11.5-15.5) % Lymphocytes # (1.0-4.8) k/uL Glucose 167 H (74-99) mg/dL POC Glucose (mg/dL) (75-99) mg/dL Microbiology - Last 24 Hours (Table) 07/22/19 02:12 Blood Culture - Preliminary Blood No Growth after 24 hours Assessment and Plan Assessment: 1. Cellulitis with right posterior calf puncture wound; rule out abscess - Patient has been started on IV vancomycin and Zosyn; IDs consulted and recommending to discontinue Zosyn as gram-negative infection is less likely and also to decrease risk of nephrotoxicity - CT of the right lower extremity is done and is negative for abscess or fluid collection - Surgery on board and no further surgical interventions are recommended 2. Hypokalemia; resolved; monitor electrolytes 3. Diabetes mellitus type 2; hyperglycemia/ neuropathy; Accu-Cheks every before meals and at bedtime with insulin sliding scale; continue with home dose of Neurontin at 100 mg twice a day and 300 mg by mouth daily at bedtime 4. Hypothyroidism; levothyroxine 50 MCG daily 5. Hyperlipidemia; Lipitor 20 mg by mouth daily at bedtime 6. DVT prophylaxis; subcu heparin CODE STATUS; full code Time with Patient: Greater than 30
--- NOTE | 2019-07-23 20:33 | PN ---
PROGRESS NOTE DATE OF SERVICE: 07/23/2019 REASON FOR FOLLOWUP: Right leg wound with a question of cellulitis and fever. INTERVAL HISTORY: The patient is currently afebrile. The patient has been breathing comfortably. The patient denies having any chest pain. Did have some minimal cough, though. No nausea, no vomiting, no abdominal pain and no diarrhea or any worsening pain to the right posterior leg area. PHYSICAL EXAMINATION: Blood pressure is 111/72 with a pulse of 68, temperature 97.8. She is 94% on room air. General description is a middle-aged female lying in bed in no distress. RESPIRATORY SYSTEM: Unlabored breathing. Clear to auscultation anteriorly. HEART: S1, S2. Regular rate and rhythm. ABDOMEN: Soft. No tenderness. RIGHT POSTERIOR LEG AREA: Small puncture wound. Minimal surrounding redness. No drainage. LABS/IMAGING: Hemoglobin is 11.3, white count 4.8. Influenza serology has been negative. Lower extremity CT was negative for any abscess. Chest x-ray was negative. DIAGNOSTIC IMPRESSION AND PLAN: Patient with an episode of fever in this patient who did have pain to the right posterior leg with a history of puncture wound and a possible abscess. However, CT has been negative, and there is no other clinical focus of infection in this patient. Chest x-ray negative. Urine has been negative. Influenza serology was negative as well. To continue vancomycin and transition to oral antibiotic on discharge. Continue with supportive care. MMODL / IJN: [id number] /
[2019-07-23] MEDS: MONTELUKAST 10 MG TAB PO SCH (20:56)
[2019-07-23] MEDS: ATORVASTATIN 20 MG TAB PO SCH (20:56)
[2019-07-23] MEDS: CITALOPRAM HYDROBROMIDE 10 MG TAB PO SCH (20:56)
[2019-07-23] MEDS: GABAPENTIN 300 MG CAP PO SCH (20:56)
[2019-07-23] MEDS: PRAMIPEXOLE 0.5 MG TAB PO SCH (21:06)
[2019-07-24] MEDS: PIPERACILLIN-TAZOBACTAM 3.375 GM in SODIUM CHLORIDE 0.9% 100 ML IVPB SCH ×3 (01:43→17:06)
[2019-07-24 04:00] LABS: Anisocytosis Slight; Basophils % (A) 0 %; Eosinophils # (A) 0.3 k/uL (0-0.7); Eosinophils % (A) 7 %; HGB 11.2 gm/dL (11.4-16.0); Lymphocytes # (A) 1.3 k/uL (1.0-4.8); Lymphocytes % (A) 31 %; MCH 29.7 pg (25.0-35.0); MCHC 33.8 g/dL (31.0-37.0); MCV 87.9 fL (80.0-100.0); Mean Platelet Volume 7.3; Monocytes # (A) 0.2 k/uL (0-1.0); Monocytes % (A) 6 %; Neutrophils # (A) 2.3 k/uL (1.3-7.7); Neutrophils % (A) 53 %; Platelet Count 180 k/uL (150-450); RBC 3.76 m/uL (3.80-5.40); RDW 16.9 % (11.5-15.5); WBC 4.3 k/uL (3.8-10.6)
[2019-07-24] MEDS ORDERED: VANCOMYCIN TROUGH DUE 1 EACH MISC MISCELLANE ONE (04:00)
[2019-07-24 04:13] LABS: African American GFR (CKD) >90 (>60 ml/min/1.73 sqM); Anion Gap 5 mmol/L; Blood Urea Nitrogen 10 mg/dL (7-17); Carbon Dioxide 30 mmol/L (22-30); Chloride 105 mmol/L (98-107); Glucose 102 mg/dL (74-99); Potassium 3.1 mmol/L (3.5-5.1); Sodium 140 mmol/L (137-145)
[2019-07-24] MEDS: VANCOMYCIN 1,250 MG in SODIUM CHLORIDE 0.9% 250 ML IVPB SCH (05:44)
[2019-07-24] MEDS: LEVOTHYROXINE 50 MCG TAB PO SCH (05:49)
[2019-07-24] MEDS: FUROSEMIDE 40 MG TAB PO SCH ×2 (07:16→15:09)
[2019-07-24] MEDS: ALLOPURINOL 300 MG TAB PO SCH (07:16)
[2019-07-24] MEDS: PANTOPRAZOLE 40 MG TABLET PO SCH (07:16)
[2019-07-24] MEDS: GABAPENTIN 100 MG CAP PO SCH ×2 (07:16→11:20)
[2019-07-24] MEDS: SUCRALFATE 1 GM TAB PO SCH ×4 (07:16→21:39)
[2019-07-24] MEDS: HEPARIN SODIUM,PORCINE 5,000 UNIT/ML 1 ML VIAL SQ SCH ×2 (07:17→21:39)
[2019-07-24] MEDS: COLCHICINE 0.6 MG EACH PO SCH (07:17)
[2019-07-24] MEDS: THEOPHYLLINE 24 HOUR 300 MG CAP.ER.24H PO SCH (07:18)
[2019-07-24] MEDS: POTASSIUM BICARBONATE/CIT AC 20 MEQ TABLET.EFF PO SCH ×4 (07:18→21:38)
[2019-07-24] MEDS: SYMBICORT 160-4.5 MCG INHALER INHALATION SCH ×2 (07:32→19:11)
[2019-07-24] MEDS: 0.9% NACL WITH KCL 40 MEQ/L 1,000 ML IV SCH (11:20)
--- NOTE | 2019-07-24 12:49 | P.PN ---
Subjective Progress Note Date: 07/24/19 Principal diagnosis: Cellulitis with right posterior calf puncture wound Hypokalemia 58-year-old female who was transferred from [facility] for further management of possible sepsis and need for LP in this patient who did have a history of injury to the right posterior cough after the patient backed up into a fiberglass cart at the local area [facility] about 2 months ago patient said that she did have a small puncture wound that she Band-Aid it subsequently she has been complaining of lots of pus coming out of that area with associated pain. Describing to be throbbing, 78 out of 10 and no radiation patient had did have a fever with chills for the patient went to [facility] the patient did have elevated lactic acid of 4.1 that apparently did improve down to 1.4 with IV fluid patient subsequently was transferred to this facility she did have x-rays of the right cough did not show any bony changes or foreign body patient did have low-grade fever 100.2 however her white count was normal and UA was negative patient has been started on vancomycin and Zosyn Objective - Vital Signs Vital signs: Vital Signs Temp 97.9 F 07/24/19 07:00 Pulse 67 07/24/19 07:00 Resp 15 07/24/19 07:00 BP 103/61 07/24/19 07:00 Pulse Ox 98 07/24/19 07:00 Intake & Output 07/23/19 07/24/19 07/24/19 18:59 06:59 18:59 Intake Total 775 Balance 775 Intake: Oral 775 Other: Voiding Method Toilet Toilet Toilet # Voids 3 2 # Bowel Movements 0 - Exam PHYSICAL EXAMINATION: GENERAL: The patient is alert and oriented x3, not in any acute distress. Well developed, well nourished. HEENT: Pupils are round and equally reacting to light. EOMI. No scleral icterus. No conjunctival pallor. Normocephalic, atraumatic. No pharyngeal erythema. No thyromegaly. CARDIOVASCULAR: S1 and S2 present. No murmurs, rubs, or gallops. PULMONARY: Chest is clear to auscultation, no wheezing or crackles. ABDOMEN: Soft, nontender, nondistended, normoactive bowel sounds. No palpable organomegaly. MUSCULOSKELETAL: No joint swelling or deformity. EXTREMITIES: No cyanosis, clubbing, or pedal edema. NEUROLOGICAL: Gross neurological examination did not reveal any focal deficits. SKIN: No rashes. - Labs CBC & Chem 7: 07/24/19 03:37 07/24/19 03:37 Labs: Abnormal Lab Results - Last 24 Hours (Table) 07/23/19 07/23/19 07/24/19 Range/Units 09:37 09:37 03:37 RBC 3.76 L (3.80-5.40) m/uL Hgb 11.3 L 11.2 L (11.4-16.0) gm/dL Hct 33.0 L (34.0-46.0) % RDW 16.8 H 16.9 H (11.5-15.5) % Lymphocytes # 0.8 L (1.0-4.8) k/uL Potassium (3.5-5.1) mmol/L Glucose 167 H (74-99) mg/dL 07/24/19 Range/Units 03:37 RBC (3.80-5.40) m/uL Hgb (11.4-16.0) gm/dL Hct (34.0-46.0) % RDW (11.5-15.5) % Lymphocytes # (1.0-4.8) k/uL Potassium 3.1 L (3.5-5.1) mmol/L Glucose 102 H (74-99) mg/dL Microbiology - Last 24 Hours (Table) 07/22/19 02:12 Blood Culture - Preliminary Blood No Growth after 48 hours Assessment and Plan Assessment: 1. Cellulitis with right posterior calf puncture wound; rule out abscess - Patient has been started on IV vancomycin and Zosyn; IDs consulted and recommending to discontinue Zosyn as gram-negative infection is less likely and also to decrease risk of nephrotoxicity - CT of the right lower extremity is done and is negative for abscess or fluid collection - Surgery on board and no further surgical interventions are recommended 2. Hypokalemia; resolved; monitor electrolytes 3. Diabetes mellitus type 2; hyperglycemia/ neuropathy; Accu-Cheks every before meals and at bedtime with insulin sliding scale; continue with home dose of Neurontin at 100 mg twice a day and 300 mg by mouth daily at bedtime 4. Hypothyroidism; levothyroxine 50 MCG daily 5. Hyperlipidemia; Lipitor 20 mg by mouth daily at bedtime 6. DVT prophylaxis; subcu heparin CODE STATUS; full code Time with Patient: Greater than 30
[2019-07-24] MEDS: VANCOMYCIN 1,500 MG in SODIUM CHLORIDE 0.9% 250 ML IVPB SCH (17:06)
[2019-07-24] MEDS: PRAMIPEXOLE 0.5 MG TAB PO SCH (21:39)
[2019-07-24] MEDS: MONTELUKAST 10 MG TAB PO SCH (21:39)
[2019-07-24] MEDS: ATORVASTATIN 20 MG TAB PO SCH (21:39)
[2019-07-24] MEDS: CITALOPRAM HYDROBROMIDE 10 MG TAB PO SCH (21:39)
[2019-07-24] MEDS: GABAPENTIN 300 MG CAP PO SCH (21:41)
[2019-07-25] MEDS: 0.9% NACL WITH KCL 40 MEQ/L 1,000 ML IV SCH ×2 (00:04→11:57)
[2019-07-25] MEDS: PIPERACILLIN-TAZOBACTAM 3.375 GM in SODIUM CHLORIDE 0.9% 100 ML IVPB SCH ×3 (03:06→17:02)
[2019-07-25] MEDS: VANCOMYCIN 1,500 MG in SODIUM CHLORIDE 0.9% 250 ML IVPB SCH ×2 (05:31→17:02)
[2019-07-25] MEDS: LEVOTHYROXINE 50 MCG TAB PO SCH (05:31)
[2019-07-25] MEDS: ALLOPURINOL 300 MG TAB PO SCH (07:26)
[2019-07-25] MEDS: SUCRALFATE 1 GM TAB PO SCH ×4 (07:26→21:40)
[2019-07-25] MEDS: THEOPHYLLINE 24 HOUR 300 MG CAP.ER.24H PO SCH (07:26)
[2019-07-25] MEDS: GABAPENTIN 100 MG CAP PO SCH ×2 (07:26→11:17)
[2019-07-25] MEDS: PANTOPRAZOLE 40 MG TABLET PO SCH (07:26)
[2019-07-25] MEDS: HEPARIN SODIUM,PORCINE 5,000 UNIT/ML 1 ML VIAL SQ SCH ×2 (07:27→21:39)
[2019-07-25] MEDS: FUROSEMIDE 40 MG TAB PO SCH ×2 (07:27→15:03)
[2019-07-25] MEDS: COLCHICINE 0.6 MG EACH PO SCH (07:27)
[2019-07-25] MEDS: POTASSIUM BICARBONATE/CIT AC 20 MEQ TABLET.EFF PO SCH ×4 (07:27→21:40)
[2019-07-25 08:12] LABS: Anisocytosis Slight; Basophils % (A) 1 %; Eosinophils # (A) 0.3 k/uL (0-0.7); Eosinophils % (A) 7 %; HCT 34.4 % (34.0-46.0); Lymphocytes # (A) 1.6 k/uL (1.0-4.8); Lymphocytes % (A) 33 %; MCH 28.5 pg (25.0-35.0); MCV 89.1 fL (80.0-100.0); Mean Platelet Volume 7.1; Monocytes # (A) 0.3 k/uL (0-1.0); Monocytes % (A) 6 %; Neutrophils # (A) 2.5 k/uL (1.3-7.7); Neutrophils % (A) 51 %; Platelet Count 211 k/uL (150-450); RBC 3.86 m/uL (3.80-5.40); RDW 16.9 % (11.5-15.5); WBC 4.8 k/uL (3.8-10.6)
[2019-07-25 08:22] LABS: African American GFR (CKD) >90 (>60 ml/min/1.73 sqM); Anion Gap 9 mmol/L; Blood Urea Nitrogen 11 mg/dL (7-17); Calcium 9.2 mg/dL (8.4-10.2); Carbon Dioxide 25 mmol/L (22-30); Chloride 105 mmol/L (98-107); Glucose 88 mg/dL (74-99); Potassium 3.3 mmol/L (3.5-5.1); Sodium 139 mmol/L (137-145)
[2019-07-25] MEDS: SYMBICORT 160-4.5 MCG INHALER INHALATION SCH ×3 (09:30→19:38)
--- NOTE | 2019-07-25 11:43 | P.PN ---
Subjective Progress Note Date: 07/25/19 Principal diagnosis: Cellulitis with right posterior calf puncture wound Hypokalemia 58-year-old female who was transferred from [facility] for further management of possible sepsis and need for LP in this patient who did have a history of injury to the right posterior calf after the patient backed up into a fiberglass cart at the local area [facility] about 2 months ago patient said that she did have a small puncture wound that she Band-Aid it subsequently she has been complaining of lots of pus coming out of that area with associated pain. Describing to be throbbing, 78 out of 10 and no radiation patient had did have a fever with chills for the patient went to [facility] the patient did have elevated lactic acid of 4.1 that apparently did improve down to 1.4 with IV fluid patient subsequently was transferred to this facility she did have x-rays of the right cough did not show any bony changes or foreign body patient did have low-grade fever 100.2 however her white count was normal and UA was negative patient has been started on vancomycin and Zosyn 07/25/2019 Patient is seen and evaluated in room at bedside Vital signs are reviewed and remained stable with a temperature of 98.1, pulse 65, respirations 16 and blood pressure of 115/72 Lab review shows a white blood count of 4.8, hemoglobin 11.0 and platelet count of 211; potassium of 3.3 Patient is continued on IV vancomycin per ID recommendations; await further recommendations from ID for switched to oral antibiotics and follow up post discharge Objective - Vital Signs Vital signs: Vital Signs Temp 98.1 F 07/25/19 05:52 Pulse 65 07/25/19 05:52 Resp 16 07/25/19 05:52 BP 115/72 07/25/19 05:52 Pulse Ox 97 07/25/19 05:52 Intake & Output 07/24/19 07/25/19 07/25/19 18:59 06:59 18:59 Intake Total 240 Balance 240 Intake: Oral 240 Other: Voiding Method Toilet Toilet Toilet # Voids 3 1 - Exam PHYSICAL EXAMINATION: GENERAL: The patient is alert and oriented x3, not in any acute distress. Well developed, well nourished. HEENT: Pupils are round and equally reacting to light. EOMI. No scleral icterus. No conjunctival pallor. Normocephalic, atraumatic. No pharyngeal erythema. No thyromegaly. CARDIOVASCULAR: S1 and S2 present. No murmurs, rubs, or gallops. PULMONARY: Chest is clear to auscultation, no wheezing or crackles. ABDOMEN: Soft, nontender, nondistended, normoactive bowel sounds. No palpable organomegaly. MUSCULOSKELETAL: No joint swelling or deformity. EXTREMITIES: No cyanosis, clubbing, or pedal edema. NEUROLOGICAL: Gross neurological examination did not reveal any focal deficits. SKIN: No rashes. - Labs CBC & Chem 7: 07/25/19 07:33 07/25/19 07:33 Labs: Abnormal Lab Results - Last 24 Hours (Table) 07/25/19 07/25/19 Range/Units 07:33 07:33 Hgb 11.0 L (11.4-16.0) gm/dL RDW 16.9 H (11.5-15.5) % Potassium 3.3 L (3.5-5.1) mmol/L Microbiology - Last 24 Hours (Table) 07/22/19 02:12 Blood Culture - Preliminary Blood No Growth after 72 hours Assessment and Plan Assessment: 1. Cellulitis with right posterior calf puncture wound; rule out abscess - Patient has been started on IV vancomycin and Zosyn; IDs consulted and recommending to discontinue Zosyn as gram-negative infection is less likely and also to decrease risk of nephrotoxicity - CT of the right lower extremity is done and is negative for abscess or fluid collection - Surgery on board and no further surgical interventions are recommended 2. Hypokalemia; resolved; monitor electrolytes 3. Diabetes mellitus type 2; hyperglycemia/ neuropathy; Accu-Cheks every before meals and at bedtime with insulin sliding scale; continue with home dose of Neurontin at 100 mg twice a day and 300 mg by mouth daily at bedtime 4. Hypothyroidism; levothyroxine 50 MCG daily 5. Hyperlipidemia; Lipitor 20 mg by mouth daily at bedtime 6. DVT prophylaxis; subcu heparin CODE STATUS; full code Time with Patient: Greater than 30
[2019-07-25] MEDS: GABAPENTIN 300 MG CAP PO SCH (21:39)
[2019-07-25] MEDS: PRAMIPEXOLE 0.5 MG TAB PO SCH (21:39)
[2019-07-25] MEDS: MONTELUKAST 10 MG TAB PO SCH (21:39)
[2019-07-25] MEDS: ATORVASTATIN 20 MG TAB PO SCH (21:40)
[2019-07-25] MEDS: CITALOPRAM HYDROBROMIDE 10 MG TAB PO SCH (21:40)
[2019-07-25 23:47] VITALS: PULSE 61
--- NOTE | 2019-07-26 00:53 | PN ---
PROGRESS NOTE DATE OF SERVICE: 07/25/2019. REASON FOR FOLLOWUP: Right posterior leg wound and cellulitis. INTERVAL HISTORY: The patient is currently afebrile. The patient has been breathing comfortably. The patient did mention she was able to walk around without too much pressure to the right posterior leg wound area. Denies any chest pain. No cough. No abdominal pain. No diarrhea. PHYSICAL EXAMINATION: Blood pressure is 117/72 with a pulse 60, temperature 98.8. She is 97% on room air. General description is a middle-aged female lying in bed in no distress. Respiratory system: Unlabored breathing. Clear to auscultation anteriorly. Heart S1, S2. Regular rate and rhythm. Abdomen soft, no tenderness. Right posterior leg wound small wound. Minimal surrounding redness. No drainage or any induration. LABS: Hemoglobin is 11.1, white count 4.8. BUN of 11, creatinine 0.72. DIAGNOSTIC IMPRESSION AND PLAN: Patient with right posterior leg puncture wound with secondary cellulitis. The patient is currently covered with vancomycin with no evidence of to finish therapy with oral antibiotics. Continue supportive care. MMODL / IJN: [id number] /
[2019-07-26] MEDS: 0.9% NACL WITH KCL 40 MEQ/L 1,000 ML IV SCH (03:11)
[2019-07-26] MEDS ORDERED: VANCOMYCIN TROUGH DUE 1 EACH MISC MISCELLANE ONE (05:00)
[2019-07-26 05:37] VITALS: BP 92/53; RESP 16; TEMP 98
[2019-07-26] MEDS: LEVOTHYROXINE 50 MCG TAB PO SCH (06:14)
[2019-07-26] MEDS: VANCOMYCIN 1,500 MG in SODIUM CHLORIDE 0.9% 250 ML IVPB SCH (06:14)
[2019-07-26] MEDS: SYMBICORT 160-4.5 MCG INHALER INHALATION SCH (07:15)
[2019-07-26] MEDS: POTASSIUM BICARBONATE/CIT AC 20 MEQ TABLET.EFF PO SCH ×2 (07:39→13:35)
[2019-07-26] MEDS: FUROSEMIDE 40 MG TAB PO SCH (07:39)
[2019-07-26] MEDS: ALLOPURINOL 300 MG TAB PO SCH (07:39)
[2019-07-26] MEDS: HEPARIN SODIUM,PORCINE 5,000 UNIT/ML 1 ML VIAL SQ SCH (07:40)
[2019-07-26] MEDS: GABAPENTIN 100 MG CAP PO SCH ×2 (07:40→13:35)
[2019-07-26] MEDS: SUCRALFATE 1 GM TAB PO SCH ×2 (07:40→13:35)
[2019-07-26] MEDS: PANTOPRAZOLE 40 MG TABLET PO SCH (07:40)
[2019-07-26] MEDS: THEOPHYLLINE 24 HOUR 300 MG CAP.ER.24H PO SCH (07:41)
[2019-07-26] MEDS: COLCHICINE 0.6 MG EACH PO SCH (07:42)
--- NOTE | 2019-07-26 14:14 | P.DS ---
Providers Date of admission: 07/22/19 00:15 Expected date of discharge: 07/26/19 Attending physician: Yesica Machado Consults: 07/22/19 00:38 Consult Physician Stat Consulting Provider: Olivier Nation Consult Reason/Comments: sepsis, fever Do you want consulting provider notified?: Yes Placement Type Exists?: Yes 07/22/19 14:22 Consult Physician Urgent Consulting Provider: Terrence Vargas Consult Reason/Comments: Fiberglass punture to lower leg Do you want consulting provider notified?: Yes Primary care physician: [facility] Course: Final diagnosis Right calf infection, cellulitis, possible abscess with sepsis, present on admission Hypokalemia Anemia, normocytic anemia of chronic disease Increased random blood sugar, possibly diabetes mellitus type 2 History of asthma History of chronic obstructive pulmonary disease Gastroesophageal reflux disease hyperlipidemia History of degenerative joint disease History of hypothyroidism history of gout History of hiatal hernia History of adenoidectomy history of degenerative joint disease Remote history of nicotine dependence Discharge disposition Patient is being discharged in a stable condition with guarded prognosis to home and will follow-up with infectious disease in the clinic in one week. Patient will continue on Bactrim DS twice daily for the next 7 days per infectious disease recommendations. Total time taken is 35 minutes. History of present illness This is a 58-year-old female who was recently transferred from [facility] to [facility] for further evaluation and treatment for right leg pain and swelling, fever, possible sepsis present on admission and was being closely monitored. Infectious disease is following. At [facility] multiple attempts of an LP was done with no success and patient was transferred here for continued treatment and evaluation. Patient states that she had a puncture wound to the back of her right calf while at work approximately 2 months ago which never really healed and patient went to the hospital for having spikes in fevers and also drainage from that site. Currently patient's condition is stable with much improvement. The right calf swelling has gone down remarkably as well as the pain and tenderness. Patient has been afebrile. She denies any shortness of breath, chest pain, or palpitations at this time. Patient denies any nausea or vomiting and has been tolerating diet. Patient would Like to go home today. Patient will follow-up at the wound care clinic in the outpatient setting as well as her primary care provider this week. Guarded prognosis. On exam vital signs are stable. Temp is 98F, pulse is 61, respirations are 16, blood pressure is 92/53, oxygen saturation is 96% on room air. Cardio S1 and S2 are muffled. Respiratory system shows diminished breath sounds at the bases otherwise clear to auscultation. Abdomen is soft, obese, and nontender. Nervous system shows no focal deficits and gait is steady. Please refer to medication reconciliation sheet for a list of medications. Patient Condition at Discharge: Fair Plan - Discharge Summary Discharge Rx Participant: No New Discharge Prescriptions: New Citalopram Hydrobromide [CeleXA] 10 mg PO HS 30 Days #30 tab Atorvastatin [Lipitor] 20 mg PO HS 30 Days #30 tab Gabapentin [Neurontin] 100 mg PO 0800,1200 7 Days #14 cap Continue Montelukast Sodium [Singulair] 10 mg PO HS Gabapentin [Neurontin] 300 mg PO HS Theophylline 12 Hour [Ishan-Dur] 300 mg PO BID Meloxicam [Mobic] 15 mg PO QAM Colchicine [Colcrys] 0.6 mg PO DAILY Omeprazole [PriLOSEC] 20 mg PO BID Furosemide [Lasix] 40 mg PO BID Budesonide/Formoterol Fumarate [Symbicort 160-4.5 Mcg Inhaler] 2 puff INHALATION RT-BID Allopurinol [Zyloprim] 600 mg PO QAM Sucralfate [Carafate] 1 gm PO QID Pramipexole [Mirapex] 0.5 mg PO HS Levalbuterol Hfa Inhaler [Xopenex Hfa Inhaler] 4 puff INHALATION RT-Q4H PRN PRN Reason: Shortness Of Breath Levothyroxine Sodium [Synthroid] 50 mcg PO DAILY Sulfamethox-Tmp 800-160Mg [Bactrim DS 800-160 mg] 1 tab PO BID 7 Days #14 Discontinued Simvastatin [Zocor] 40 mg PO HS Discharge Medication List Allopurinol [Zyloprim] 600 mg PO QAM 04/13/15 [History] Budesonide/Formoterol Fumarate [Symbicort 160-4.5 Mcg Inhaler] 2 puff INHALATION RT-BID 04/13/15 [History] Colchicine [Colcrys] 0.6 mg PO DAILY 04/13/15 [History] Furosemide [Lasix] 40 mg PO BID 04/13/15 [History] Gabapentin [Neurontin] 300 mg PO HS 04/13/15 [History] Meloxicam [Mobic] 15 mg PO QAM 04/13/15 [History] Montelukast Sodium [Singulair] 10 mg PO HS 04/13/15 [History] Omeprazole [PriLOSEC] 20 mg PO BID 04/13/15 [History] Sucralfate [Carafate] 1 gm PO QID 04/13/15 [History] Theophylline 12 Hour [Ishan-Dur] 300 mg PO BID 04/13/15 [History] Pramipexole [Mirapex] 0.5 mg PO HS 07/20/18 [History] Levalbuterol Hfa Inhaler [Xopenex Hfa Inhaler] 4 puff INHALATION RT-Q4H PRN 07/22/19 [History] Levothyroxine Sodium [Synthroid] 50 mcg PO DAILY 07/22/19 [History] Atorvastatin [Lipitor] 20 mg PO HS 30 Days #30 tab 07/26/19 [Rx] Citalopram Hydrobromide [CeleXA] 10 mg PO HS 30 Days #30 tab 07/26/19 [Rx] Gabapentin [Neurontin] 100 mg PO 0800,1200 7 Days #14 cap 07/26/19 [Rx] Sulfamethox-Tmp 800-160Mg [Bactrim DS 800-160 mg] 1 tab PO BID 7 Days #14 07/26/19 [Rx] Follow up Appointment(s)/Referral(s): Reema Aranda NPC [REFERRING] - 08/02/19 1:00 [facility] [[facility]-STAFF[facility] - 1 Week Olivier Nation MD [STAFF PHYSICIAN] - 08/03/19 2:30 pm Ambulatory/Diagnostic Orders: Basic Metabolic Panel [LAB.AMB] Time Frame: 3 Days, Location: None Selected Complete Blood Count w/diff [LAB.AMB] Time Frame: 3 Days, Location: None Selected Patient Instructions/Handouts: Cellulitis (DC) Activity/Diet/Wound Care/Special Instructions: Activity Limited until follow-up Continue complete course of antibiotics until finished Continue current diet Follow-up with wound care as discussed Repeat labs in 2-3 days Follow-up with primary care provider upon discharge Discharge Disposition: HOME SELF-CARE
--- NOTE | 2019-07-26 15:34 | PN ---
PROGRESS NOTE DATE OF SERVICE: 07/26/2019 REASON FOR FOLLOWUP: Right posterior leg wound and cellulitis. INTERVAL HISTORY: The patient is currently afebrile. patient has been breathing comfortably. Denies any chest pain or cough. No nausea, no vomiting. No abdominal pain or pain to the right posterior leg area. PHYSICAL EXAMINATION: Blood pressure 96/60 with a pulse of 51, temperature of 97.7, she is 96% on room air. General description is a middle-aged female, lying in bed in no distress. RESPIRATORY SYSTEM: Unlabored breathing, clear to auscultation anteriorly. HEART: S1, S2. Regular rate and rhythm. ABDOMEN: Soft, no tenderness. EXTREMITY: right posterior leg swelling and redness has resolved. LABS: No new labs have been obtained except Vanco trough was 15.6. Blood culture has been negative. DIAGNOSTIC IMPRESSION AND PLAN: Patient with right posterior leg ulcer wound with secondary cellulitis. Recommend finishing therapy with short course of oral Bactrim DS. The patient advised to increase her fluid intake and continue supportive care. MMODL / IJN: [id number] /
== END 2019-07-26 13:45 | disposition home or self-care (01) | DRG 872 ==
LOC: 4MS4W 00:15
PROVIDERS: ADMIT Internal Medicine; ATTEND Internal Medicine
DX: A41.9 Sepsis, unspecified organism (principal); E87.2 Acidosis; L03.115 Cellulitis of right lower limb; S81.831A Puncture wound without foreign body, right lower leg, initial encounter; W22.8XXA Striking against or struck by other objects, initial encounter; Y92.512 Supermarket, store or market as the place of occurrence of the external cause; E87.6 Hypokalemia; E16.2 Hypoglycemia, unspecified; D63.8 Anemia in other chronic diseases classified elsewhere; E11.65 Type 2 diabetes mellitus with hyperglycemia; E11.40 Type 2 diabetes mellitus with diabetic neuropathy, unspecified; I10 Essential (primary) hypertension; E03.9 Hypothyroidism, unspecified; J44.9 Chronic obstructive pulmonary disease, unspecified; E78.5 Hyperlipidemia, unspecified; K21.9 Gastro-esophageal reflux disease without esophagitis; K44.9 Diaphragmatic hernia without obstruction or gangrene; E66.9 Obesity, unspecified; F17.200 Nicotine dependence, unspecified, uncomplicated; M19.90 Unspecified osteoarthritis, unspecified site; M10.9 Gout, unspecified; M17.0 Bilateral primary osteoarthritis of knee; F17.210 Nicotine dependence, cigarettes, uncomplicated; Z90.710 Acquired absence of both cervix and uterus; Z79.899 Other long term (current) drug therapy; Z79.51 Long term (current) use of inhaled steroids; Z79.890 Hormone replacement therapy; Z80.52 Family history of malignant neoplasm of bladder; Z80.1 Family history of malignant neoplasm of trachea, bronchus and lung; Z90.89 Acquired absence of other organs; Z98.891 History of uterine scar from previous surgery; Z98.890 Other specified postprocedural states; Z88.6 Allergy status to analgesic agent; Z91.011 Allergy to milk products; Z68.35 Body mass index [BMI] 35.0-35.9, adult
CPT/HCPCS: 71046; 80048; 80202; 81003; 83036; 83735; 85025; 87040; 87502; 94640

== ENCOUNTER 2019-07-27 06:54 | Inpatient (IN) | payer OTHER ==
[2019-07-27] MEDS ORDERED: SODIUM CHLORIDE 0.9% 1,000 ML IV STA ×2 (07:43)
[2019-07-27] MEDS ORDERED: ACETAMINOPHEN TAB 325 MG TAB PO STA (07:43)
--- NOTE | 2019-07-27 07:55 | ED ---
Fever HPI - General Chief Complaint: Fever Stated Complaint: fever Time Seen by Provider: 07/27/19 07:15 Source: patient, family, RN notes reviewed, old records reviewed Mode of arrival: wheelchair Limitations: no limitations - History of Present Illness Initial Comments: This a 58-year-old female who was just discharged from the hospital yesterday being an inpatient for treatment of a cellulitis of the right lower extremity who was told come back if she started developing a fever she had a temperature 103 and later 104 max at home. He felt nauseated and felt somewhat weak no vomiting no other symptoms other than a slight cough. She was sent home on a prescription for Bactrim which she has not yet taken. No other modifying factors she has a palpitations chills or sweats or other symptoms at this time MD Complaint: fever - Related Data Home Medications Medication Instructions Recorded Confirmed Allopurinol [Zyloprim] 600 mg PO QAM 04/13/15 07/27/19 Budesonide/Formoterol Fumarate 2 puff INHALATION RT-BID 04/13/15 07/27/19 [Symbicort 160-4.5 Mcg Inhaler] Colchicine [Colcrys] 0.6 mg PO DAILY 04/13/15 07/27/19 Furosemide [Lasix] 40 mg PO BID 04/13/15 07/27/19 Gabapentin [Neurontin] 300 mg PO HS 04/13/15 07/27/19 Meloxicam [Mobic] 15 mg PO QAM 04/13/15 07/27/19 Montelukast Sodium [Singulair] 10 mg PO HS 04/13/15 07/27/19 Omeprazole [PriLOSEC] 20 mg PO BID 04/13/15 07/27/19 Sucralfate [Carafate] 1 gm PO QID 04/13/15 07/27/19 Theophylline 12 Hour [Ishan-Dur] 300 mg PO BID 04/13/15 07/27/19 Pramipexole [Mirapex] 0.5 mg PO HS 07/20/18 07/27/19 Levalbuterol Hfa Inhaler [Xopenex 4 puff INHALATION RT-Q4H PRN 07/22/19 07/27/19 Hfa Inhaler] Levothyroxine Sodium [Synthroid] 50 mcg PO DAILY 07/22/19 07/27/19 Gabapentin [Neurontin] 100 mg PO BID@0800,1200 07/27/19 07/27/19 Previous Rx's Medication Instructions Recorded Atorvastatin [Lipitor] 20 mg PO HS 30 Days #30 tab 07/26/19 Citalopram Hydrobromide [CeleXA] 10 mg PO HS 30 Days #30 tab 07/26/19 Sulfamethox-Tmp 800-160Mg [Bactrim 1 tab PO BID 7 Days #14 07/26/19 DS 800-160 mg] Allergies Allergy/AdvReac Type Severity Reaction Status Date / Time milk Allergy Dyspnea,swe Verified 07/27/19 07:54 lling aspirin AdvReac Abdominal Verified 07/27/19 07:54 Pain, headache Review of Systems ROS Statement: Those systems with pertinent positive or pertinent negative responses have been documented in the HPI. ROS Other: All systems not noted in ROS Statement are negative. Past Medical History Past Medical History: Asthma, COPD, GERD/Reflux, Hyperlipidemia, Osteoarthritis (OA), Thyroid Disorder Additional Past Medical History / Comment(s): HYPOGLYCEMIA, GOUT, HIATAL HERNIA, STATES LOW POTASSIUM, STATES SPOT ON HER ESOPHAGUS , HX OF LOW IRON., ARTHRITIS IN KNEEs History of Any Multi-Drug Resistant Organisms: None Reported Past Surgical History: Adenoidectomy, Section, Hysterectomy, Orthopedic Surgery, Tonsillectomy Additional Past Surgical History / Comment(s): Rt hand tendon repair. Left eye "muscle cut". Gera carpal tunnel. Left knee arthroscopy. HEMORROIDECTOMY. Past Anesthesia/Blood Transfusion Reactions: Motion Sickness, Postoperative Nausea & Vomiting (PONV) Past Psychological History: No Psychological Hx Reported Smoking Status: Former smoker Past Alcohol Use History: None Reported Past Drug Use History: None Reported - Past Family History Father Family Medical History: Cancer Additional Family Medical History / Comment(s): LUNG CANCER Mother Family Medical History: Cancer Additional Family Medical History / Comment(s): BLADDER CANCER General Exam - General Exam Comments Initial Comments: This is a well-developed well-nourished awake alert oriented x 3 female Limitations: no limitations General appearance: alert, lethargic Head exam: Present: atraumatic, normocephalic, normal inspection Eye exam: Present: normal appearance, PERRL, EOMI. Absent: scleral icterus, conjunctival injection, periorbital swelling ENT exam: Present: mucous membranes dry Neck exam: Present: normal inspection. Absent: tenderness, meningismus, lymphadenopathy Respiratory exam: Present: normal lung sounds bilaterally. Absent: respiratory distress, wheezes, rales, rhonchi, stridor Cardiovascular Exam: Present: normal rhythm, tachycardia, normal heart sounds. Absent: systolic murmur, diastolic murmur, rubs, gallop, clicks GI/Abdominal exam: Present: soft, normal bowel sounds. Absent: distended, tenderness, guarding, rebound, rigid, bruit, pulsatile mass Extremities exam: Present: full ROM, normal capillary refill, other (The site in question the right lower extremity demonstrates very minimal evidence of cellulitic changes there is however in the right lower extremity anteriorly and distally erythema increased localized temperature. Proximally no lymphadenopathy noted no lymphangitis.). Absent: tenderness, pedal edema, joint swelling, calf tenderness Back exam: Present: normal inspection Neurological exam: Present: alert, oriented X3, CN II-XII intact Psychiatric exam: Present: normal affect, normal mood Skin exam: Present: warm, dry, intact, erythema (To the left lower extremity is noted). Absent: normal color, rash Course Vital Signs 07/27/19 07/27/19 07/27/19 07:00 08:48 12:05 Temperature 100.0 F H 98.8 F 99.8 F H Pulse Rate 116 H 75 Respiratory 18 18 Rate Blood Pressure 129/90 113/82 O2 Sat by Pulse 95 95 Oximetry - Reevaluation(s) Reevaluation #1: 07/27/19 12:47 Patient persisted having generalized feelings of not feeling well. I did discuss case with Dr. Conway patient will be admitted and placed back on IV antibiotics and fluids. At this point she generally failing outpatient Medical Decision Making - Lab Data Result diagrams: 07/27/19 07:50 07/27/19 07:50 Lab Results 07/27/19 07/27/19 07/27/19 Range/Units 07:50 07:50 07:50 WBC 15.2 H (3.8-10.6) k/uL RBC 4.30 (3.80-5.40) m/uL Hgb 12.3 (11.4-16.0) gm/dL Hct 37.4 (34.0-46.0) % MCV 87.0 (80.0-100.0) fL MCH 28.6 (25.0-35.0) pg MCHC 32.9 (31.0-37.0) g/dL RDW 17.0 H (11.5-15.5) % Plt Count 272 (150-450) k/uL Neutrophils % 92 % Lymphocytes % 2 % Monocytes % 4 % Eosinophils % 1 % Basophils % 1 % Neutrophils # 13.9 H (1.3-7.7) k/uL Lymphocytes # 0.3 L (1.0-4.8) k/uL Monocytes # 0.6 (0-1.0) k/uL Eosinophils # 0.1 (0-0.7) k/uL Basophils # 0.2 (0-0.2) k/uL Anisocytosis Slight Sodium 138 (137-145) mmol/L Potassium 3.6 (3.5-5.1) mmol/L Chloride 101 (98-107) mmol/L Carbon Dioxide 24 (22-30) mmol/L Anion Gap 13 mmol/L BUN 14 (7-17) mg/dL Creatinine 0.95 (0.52-1.04) mg/dL Est GFR (CKD-EPI)AfAm 77 (>60 ml/min/1.73 sqM) Est GFR (CKD-EPI)NonAf 67 (>60 ml/min/1.73 sqM) Glucose 127 H (74-99) mg/dL Plasma Lactic Acid Murali 1.7 (0.7-2.0) mmol/L Calcium 10.0 (8.4-10.2) mg/dL Total Bilirubin 0.6 (0.2-1.3) mg/dL AST 165 H (14-36) U/L ALT 220 H (9-52) U/L Alkaline Phosphatase 215 H (38-126) U/L Creatine Kinase 32 (30-135) U/L Total Protein 6.5 (6.3-8.2) g/dL Albumin 3.9 (3.5-5.0) g/dL Disposition Clinical Impression: Fever, Cellulitis, Failure of outpatient treatment, Dehydration Disposition: ADMITTED IP TO THIS [facility] Condition: Stable Referrals: John Reddy MD [Primary Care Provider] - 1-2 days
[2019-07-27 08:19] LABS: Anisocytosis Slight; Basophils # (A) 0.2 k/uL (0-0.2); Basophils % (A) 1 %; Eosinophils # (A) 0.1 k/uL (0-0.7); Eosinophils % (A) 1 %; HCT 37.4 % (34.0-46.0); HGB 12.3 gm/dL (11.4-16.0); Lymphocytes # (A) 0.3 k/uL (1.0-4.8); Lymphocytes % (A) 2 %; MCH 28.6 pg (25.0-35.0); MCHC 32.9 g/dL (31.0-37.0); Mean Platelet Volume 6.9; Monocytes # (A) 0.6 k/uL (0-1.0); Monocytes % (A) 4 %; Neutrophils # (A) 13.9 k/uL (1.3-7.7); Neutrophils % (A) 92 %; Platelet Count 272 k/uL (150-450); WBC 15.2 k/uL (3.8-10.6)
--- NOTE | 2019-07-27 08:33 | XR ---
EXAMINATION TYPE: XR chest 2V DATE OF EXAM: 07/27/2019 COMPARISON: 07/23/2019 HISTORY: 58 year-old female fever and cough TECHNIQUE: PA and lateral views FINDINGS: Heart normal size. Aorta within normal limits. Some mild central peribronchial cuffing is noted. Stra ndy atelectasis left base. No denys consolidation or pleural effusion. IMPRESSION: Some central peribronchial cuffing could reflect bronchitis or asthma. Strandy opacity at the left ba se suggests atelectasis.
[2019-07-27 08:39] LABS: Albumin 3.9 g/dL (3.5-5.0); Potassium 3.6 mmol/L (3.5-5.1); Total Bilirubin 0.6 mg/dL (0.2-1.3); Total Protein 6.5 g/dL (6.3-8.2)
[2019-07-27] MEDS ORDERED: ALBUTEROL NEBULIZED 2.5 MG/3 ML INHALATION PRN (12:44)
[2019-07-27] MEDS ORDERED: NALOXONE 0.4 MG/ML 1 ML VIAL IV PRN (12:50)
--- NOTE | 2019-07-27 13:27 | US ---
EXAMINATION TYPE: US gallbladder DATE OF EXAM: 07/27/2019 COMPARISON: NONE CLINICAL HISTORY: elevated liver enzymes. EXAM MEASUREMENTS: Liver Length: 17.2 cm Gallbladder Wall: 0.3 cm CBD: 0.4 cm Right Kidney: 11.5 x 4.9 x 5.1 cm Pancreas: not well visualized due to midline bowel gas Liver: measures upper limits of normal. Homogeneous. Gallbladder: No stones seen Evidence for sonographic Cadena's sign: No CBD: wnl Right Kidney: No hydronephrosis or masses seen IMPRESSION: Liver is upper limits of normal but appears homogeneous. No sonographic evidence of timothy lithiasis nor acute cholecystitis.
[2019-07-27 13:51] LABS: Hepatitis A Antibody IgM NEGATIVE
[2019-07-27] MEDS ORDERED: ACETAMINOPHEN TAB 325 MG TAB PO PRN (14:11)
[2019-07-27] MEDS ORDERED: VANCOMYCIN IV PER PHARMACY 1 EACH MISC MISCELLANE PRN (14:15)
[2019-07-27] MEDS: SUCRALFATE 1 GM TAB PO SCH ×3 (14:33→23:34)
[2019-07-27] MEDS ORDERED: VANCOMYCIN 1,500 MG in SODIUM CHLORIDE 0.9% 250 ML IVPB ONE (15:00)
[2019-07-27] MEDS ORDERED: IBUPROFEN 400 MG TAB PO STA (15:29)
[2019-07-27] MEDS ORDERED: IOPAMIDOL-300 CONTRAST 30 ML VIAL (ORAL USE) PO PRN (15:36)
--- NOTE | 2019-07-27 15:41 | P.HPIM ---
History of Present Illness Patient very pleasant 58-year-old female was discharged yesterday after she was treated for right lower leg cellulitis and patient was discharged on Bactrim. Patient came back again with temperature of 103 and 104 and patient has multiple elevations of temperature. Patient was sent on vancomycin. Patient denied any UTI-like symptoms although he is not available blood cultures were obtained, patient was complaining of on and off nausea symptoms has been going on for some time patient cannot tolerate fatty diet and patient is also complaining of left upper and the right upper quadrant abdominal pain on and off with mild-to- moderate severity because of which are as an ultrasound of the abdomen considering elevated liver enzymes ultrasound of the abdomen did not show any significant abnormality also ordered hepatitis panel. Patient to right axillary light is also improved significantly. Patient denied any diarrhea patient chest x-ray did not show any pneumonic process considering that the patient had significantly improved cellulitis in spite of which patient is having fever because of which I'll obtain a CAT scan of the abdomen patient was also complaining of headache, although there is no photophobia patient denied any diarrhea Review of Systems REVIEW OF SYSTEMS: CONSTITUTIONAL: As mentioned in HPI HEENT: No recent visual problems or hearing problems. Denied any sore throat. CARDIOVASCULAR: No chest pain, orthopnea, PND, no palpitations, no syncope. PULMONARY: No shortness of breath, no cough, no hemoptysis. GASTROINTESTINAL: As mentioned in HPI NEUROLOGICAL: No headaches, no weakness, no numbness. HEMATOLOGICAL: Denies any bleeding or petechiae. GENITOURINARY: Denies any burning micturition, frequency, or urgency. MUSCULOSKELETAL/RHEUMATOLOGICAL: Denies any joint pain, swelling, or any muscle pain. ENDOCRINE: Denies any polyuria or polydipsia. The rest of the 14-point review of systems is negative. Past Medical History Past Medical History: Asthma, COPD, GERD/Reflux, Hyperlipidemia, Osteoarthritis (OA), Pneumonia, Thyroid Disorder, Vascular Disorder Additional Past Medical History / Comment(s): Pt recently admitted to [facility] on 07/22/19 with R calf infection/cellulitis/possible abscess with sepsis/random elevated blood sugar. Other hx: Bronchitis, arthritis in multiple joints, gout in several joints, DJD, neuropathy bilateral feet, fluid retention, PVD, hypothyroid, hypoglycemia, hypokalemia, normocytic anemia. History of Any Multi-Drug Resistant Organisms: None Reported Past Surgical History: Adenoidectomy, Section, Hysterectomy, Orthopedic Surgery, Tonsillectomy Additional Past Surgical History / Comment(s): L knee arthroscopy, R hand tendon repair, bilateral carpal tunnel releases, EGDs, colonoscopy, hemorrhoidectomy, varicose vein stripping and pt states a larger vein was "closed". Past Anesthesia/Blood Transfusion Reactions: Motion Sickness, Postoperative Nausea & Vomiting (PONV) Smoking Status: Former smoker - Past Family History Father Family Medical History: Cancer Additional Family Medical History / Comment(s): LUNG CANCER Mother Family Medical History: Cancer Additional Family Medical History / Comment(s): BLADDER CANCER Medications and Allergies Home Medications Medication Instructions Recorded Confirmed Type Allopurinol [Zyloprim] 600 mg PO QAM 04/13/15 07/27/19 History Budesonide/Formoterol Fumarate 2 puff INHALATION RT-BID 04/13/15 07/27/19 History [Symbicort 160-4.5 Mcg Inhaler] Colchicine [Colcrys] 0.6 mg PO DAILY 04/13/15 07/27/19 History Furosemide [Lasix] 40 mg PO BID 04/13/15 07/27/19 History Gabapentin [Neurontin] 300 mg PO HS 04/13/15 07/27/19 History Meloxicam [Mobic] 15 mg PO QAM 04/13/15 07/27/19 History Montelukast Sodium [Singulair] 10 mg PO HS 04/13/15 07/27/19 History Omeprazole [PriLOSEC] 20 mg PO BID 04/13/15 07/27/19 History Sucralfate [Carafate] 1 gm PO QID 04/13/15 07/27/19 History Theophylline 12 Hour [Ishan-Dur] 300 mg PO BID 04/13/15 07/27/19 History Pramipexole [Mirapex] 0.5 mg PO HS 07/20/18 07/27/19 History Levalbuterol Hfa Inhaler [Xopenex 4 puff INHALATION RT-Q4H PRN 07/22/19 07/27/19 History Hfa Inhaler] Levothyroxine Sodium [Synthroid] 50 mcg PO DAILY 07/22/19 07/27/19 History Atorvastatin [Lipitor] 20 mg PO HS 30 Days #30 tab 07/26/19 07/27/19 Rx Citalopram Hydrobromide [CeleXA] 10 mg PO HS 30 Days #30 tab 07/26/19 07/27/19 Rx Sulfamethox-Tmp 800-160Mg [Bactrim 1 tab PO BID 7 Days #14 07/26/19 07/27/19 Rx DS 800-160 mg] Gabapentin [Neurontin] 100 mg PO BID@0800,1200 07/27/19 07/27/19 History Allergies Allergy/AdvReac Type Severity Reaction Status Date / Time milk Allergy Dyspnea,swe Verified 07/27/19 07:54 lling aspirin AdvReac Abdominal Verified 07/27/19 07:54 Pain, headache Physical Exam Vitals: Vital Signs Temp Pulse Pulse Resp BP BP Pulse Ox 07/27/19 15:00 102.2 F H 07/27/19 14:09 101.0 F H 91 16 137/61 96 07/27/19 12:05 99.8 F H 75 18 113/82 95 07/27/19 08:48 98.8 F 07/27/19 07:00 100.0 F H 116 H 18 129/90 95 Intake and Output 07/27/19 07/27/19 07/27/19 06:59 14:59 22:59 Other: Weight 82.1 kg PHYSICAL EXAMINATION: GENERAL: The patient is alert and oriented x3, appears to be fatigued and is in some distress because of fever Well developed, well nourished. HEENT: Pupils are round and equally reacting to light. EOMI. No scleral icterus. No conjunctival pallor. Normocephalic, atraumatic. No pharyngeal erythema. No thyromegaly. CARDIOVASCULAR: S1 and S2 present. No murmurs, rubs, or gallops. PULMONARY: Chest is clear to auscultation, no wheezing or crackles. ABDOMEN: Soft, nontender, nondistended, normoactive bowel sounds. No palpable organomegaly. MUSCULOSKELETAL: No joint swelling or deformity. EXTREMITIES: No cyanosis, clubbing, or pedal edema. NEUROLOGICAL: Gross neurological examination did not reveal any focal deficits. SKIN: No rashes. Results CBC & Chem 7: 07/27/19 07:50 07/27/19 07:50 Labs: Abnormal Lab Results - Last 24 Hours (Table) 07/27/19 07/27/19 Range/Units 07:50 07:50 WBC 15.2 H (3.8-10.6) k/uL RDW 17.0 H (11.5-15.5) % Neutrophils # 13.9 H (1.3-7.7) k/uL Lymphocytes # 0.3 L (1.0-4.8) k/uL Glucose 127 H (74-99) mg/dL AST 165 H (14-36) U/L ALT 220 H (9-52) U/L Alkaline Phosphatase 215 H (38-126) U/L Thrombosis Risk Factor Assmnt - Choose All That Apply Any of the Below Risk Factors Present?: Yes Each Factor Represents 1 point: Abnormal pulmonary function (COPD), Age 41-60 years, Obesity (BMI >25) Other Risk Factors: No Other congenital or acquired thrombophilia - If yes, enter type in comment: No Thrombosis Risk Factor Assessment Total Risk Factor Score: 3 Thrombosis Risk Factor Assessment Level: Moderate Risk Assessment and Plan Plan: -Sepsis source of infection is not clear patient was recently treated for right lower limbs allied as patient was started on broad-spectrum antibiotics causing her abdominal pain developed and CAT scan of the abdomen infectious disease will be consulted patient will also be started on Zosyn until we find out accurately the source of infection. Patient to some Lasix which will be held. -Possible right leg cellulitis which actually improved significantly since her last hospitalization continue the vancomycin as mentioned above -Elevated liver enzymes ultrasound did not show any cholelithiasis hepatitis panel is pending statin will be held. -He anemia of chronic disease -COPD without any acute exacerbation -Hyperlipidemia -hypothyroidism -Gout for which patient is on colchicine and chronic basis which will be continued -Hiatal hernia
[2019-07-27] MEDS ORDERED: FUROSEMIDE 40 MG TAB PO SCH (16:00)
[2019-07-27] MEDS: PIPERACILLIN-TAZOBACTAM 3.375 GM in SODIUM CHLORIDE 0.9% 100 ML IVPB SCH (16:51)
[2019-07-27] MEDS: PANTOPRAZOLE 40 MG TABLET PO SCH (16:57)
--- NOTE | 2019-07-27 18:05 | CT ---
EXAMINATION TYPE: CT chest abdomen w con DATE OF EXAM: 07/27/2019 COMPARISON: CT 02/15/2011 HISTORY: Bilateral upper quadrant pain with fever CT DLP: 1183.1 mGycm. Automated Exposure Control for Dose Reduction was Utilized. CONTRAST: CT scan of the thorax, abdomen and pelvis is performed with IV Contrast, patient injected w ith 100 mL of Isovue 300. FINDINGS: VISUALIZED INFRAHYOID NECK STRUCTURES: 1 cm hypodense nodule seen within the lower most right thyroid parenchyma, which can be characterized with ultrasound. LUNGS AND PLEURAL SPACES: The lungs are grossly clear, there is no concerning parenchymal mass or nod ule identified. There is no pleural effusion or pneumothorax seen. The tracheobronchial tree is delgado nt. MEDIASTINUM: There are no greater than 1 cm hilar or mediastinal lymph nodes. No pericardial effusi on is seen. No cardiomegaly. No acute aortic findings. Remainder the mediastinum unremarkable. PERITONEAL CAVITY: No pneumoperitoneum or fluid. EXTRAPERITONEAL SPACES OF THE ABDOMEN AND PELVIS: No acute inflammatory process. LIVER/GB: No significant abnormality is appreciated. PANCREAS: No significant abnormality is seen. SPLEEN: No significant abnormality is seen. ADRENALS: No significant abnormality is seen. KIDNEYS: No significant abnormality is seen. BOWEL: No definite acute process. However, in both upper quadrants the colon is noted to be top goldie l in its caliber, suggesting constipation. The visualized appendix has normal appearance. GENITAL ORGANS: No gross abnormality seen. LYMPH NODES: No greater than 1cm abdominal or pelvic lymph nodes are appreciated. OSSEOUS STRUCTURES: No significant abnormality is seen. VASCULAR STRUCTURES: No acute findings. However, nonaneurysmal atherosclerotic intimal calcifications are seen throughout the visualized arterial anatomy, including the coronary arteries. OTHER: No significant additional abnormality is seen. IMPRESSION: NO DEFINITE ACUTE THORACIC OR ABDOMINAL PROCESS. However, constipation pattern noted.
[2019-07-27] MEDS: SYMBICORT 160-4.5 MCG INHALER INHALATION SCH (20:32)
[2019-07-27 21:02] LABS: Hepatitis B Core IgM Non-Reactive (Non-Reactive); Hepatitis B Surface Antigen Non-Reactive (Non-Reactive); Hepatitis C IgG Antibody Non-Reactive (Non-Reactive)
[2019-07-27] MEDS: GABAPENTIN 300 MG CAP PO SCH (21:48)
[2019-07-27] MEDS: CITALOPRAM HYDROBROMIDE 10 MG TAB PO SCH (21:49)
[2019-07-27] MEDS: MONTELUKAST 10 MG TAB PO SCH (21:49)
[2019-07-27] MEDS: PRAMIPEXOLE 0.5 MG TAB PO SCH (23:35)
--- NOTE | 2019-07-28 00:06 | P.CONS ---
History of Present Illness - Reason for Consult Consult date: 07/27/19 fever Requesting physician: Sofia Conway - Chief Complaint fever 1 day - History of Present Illness Patient is a 58-year-old female who was recently admitted to this facility and was treated for right posterior leg puncture wound with secondary cellulitis patient did have CT of the legs was negative for any abscess she was treated with IV vancomycin and subsequently discharged home on oral Bactrim DS yesterday however the patient has not started taking her prescription the patient said she woke up this morning with a fever rigors and chills with a t emperature of 11 3F patient did have slight nausea but no vomiting. Denies having any chest pain or shortness of breath with minimal cough which is dry in nature and no worsening or significant urinary symptoms no abdominal pain or any diarrhea and no pain in the right posterior leg site of previous cellulitis with the symptoms the patient was evaluated by the ER physician patient did have a fever of 11 3F she did have elevated white count of 15,000 patient to did have mildly elevated liver enzymes hepatitis panel was negative ultrasound of the gallbladder was negative subsequently had did have a CT of abdominal pelvis and chest which came negative for any acute abnormality patient will be started on vancomycin and Zosyn and admitted to the hospital and infectious disease was consulted for further recommendation regarding antibiotic therapy Review of Systems Positive points has been mentioned in HPI rest of the systems are negative Past Medical History Past Medical History: Asthma, COPD, GERD/Reflux, Hyperlipidemia, Osteoarthritis (OA), Pneumonia, Thyroid Disorder, Vascular Disorder Additional Past Medical History / Comment(s): Pt recently admitted to [facility] on 07/22/19 with R calf infection/cellulitis/possible abscess with sepsis/random elevated blood sugar. Other hx: Bronchitis, arthritis in multiple joints, gout in several joints, DJD, neuropathy bilateral feet, fluid retention, PVD, hypothyroid, hypoglycemia, hypokalemia, normocytic anemia. History of Any Multi-Drug Resistant Organisms: None Reported Past Surgical History: Adenoidectomy, Section, Hysterectomy, Orthopedic Surgery, Tonsillectomy Additional Past Surgical History / Comment(s): L knee arthroscopy, R hand tendon repair, bilateral carpal tunnel releases, EGDs, colonoscopy, hemorrhoidectomy, varicose vein stripping and pt states a larger vein was "closed". Past Anesthesia/Blood Transfusion Reactions: Motion Sickness, Postoperative Nausea & Vomiting (PONV) Smoking Status: Former smoker - Past Family History Father Family Medical History: Cancer Additional Family Medical History / Comment(s): LUNG CANCER Mother Family Medical History: Cancer Additional Family Medical History / Comment(s): BLADDER CANCER Medications and Allergies Home Medications Medication Instructions Recorded Confirmed Type Allopurinol [Zyloprim] 600 mg PO QAM 04/13/15 07/27/19 History Budesonide/Formoterol Fumarate 2 puff INHALATION RT-BID 04/13/15 07/27/19 History [Symbicort 160-4.5 Mcg Inhaler] Colchicine [Colcrys] 0.6 mg PO DAILY 04/13/15 07/27/19 History Furosemide [Lasix] 40 mg PO BID 04/13/15 07/27/19 History Gabapentin [Neurontin] 300 mg PO HS 04/13/15 07/27/19 History Meloxicam [Mobic] 15 mg PO QAM 04/13/15 07/27/19 History Montelukast Sodium [Singulair] 10 mg PO HS 04/13/15 07/27/19 History Omeprazole [PriLOSEC] 20 mg PO BID 04/13/15 07/27/19 History Sucralfate [Carafate] 1 gm PO QID 04/13/15 07/27/19 History Theophylline 12 Hour [Ishan-Dur] 300 mg PO BID 04/13/15 07/27/19 History Pramipexole [Mirapex] 0.5 mg PO HS 07/20/18 07/27/19 History Levalbuterol Hfa Inhaler [Xopenex 4 puff INHALATION RT-Q4H PRN 07/22/19 07/27/19 History Hfa Inhaler] Levothyroxine Sodium [Synthroid] 50 mcg PO DAILY 07/22/19 07/27/19 History Atorvastatin [Lipitor] 20 mg PO HS 30 Days #30 tab 07/26/19 07/27/19 Rx Citalopram Hydrobromide [CeleXA] 10 mg PO HS 30 Days #30 tab 07/26/19 07/27/19 Rx Sulfamethox-Tmp 800-160Mg [Bactrim 1 tab PO BID 7 Days #14 07/26/19 07/27/19 Rx DS 800-160 mg] Gabapentin [Neurontin] 100 mg PO BID@0800,1200 07/27/19 07/27/19 History Allergies Allergy/AdvReac Type Severity Reaction Status Date / Time milk Allergy Dyspnea,swe Verified 07/27/19 07:54 lling aspirin AdvReac Abdominal Verified 07/27/19 07:54 Pain, headache Physical Exam Vitals: Vital Signs Temp Pulse Pulse Resp BP BP Pulse Ox 07/27/19 16:35 99.1 F 07/27/19 16:09 101.7 F H 07/27/19 15:00 102.2 F H 07/27/19 14:09 101.0 F H 91 16 137/61 96 07/27/19 12:05 99.8 F H 75 18 113/82 95 07/27/19 08:48 98.8 F 07/27/19 07:00 100.0 F H 116 H 18 129/90 95 Intake and Output 07/27/19 07/27/19 07/27/19 06:59 14:59 22:59 Other: Weight 82.1 kg GENERAL DESCRIPTION: Middle-aged female lying in bed, no distress. No tachypnea or accessory muscle of respiration use. HEENT: Shows Pallor , no scleral icterus. Oral mucous membrane is dry. No pharyngeal erythema or thrush NECK: Trachea central, no thyromegaly. LUNGS: Unlabored breathing. Clear to auscultation anteriorly. No wheeze or crackle. HEART: S1, S2, regular rate and rhythm. No loud murmur ABDOMEN: Soft, no tenderness , guarding or rigidity, no organomegaly EXTREMITIES: No edema of feet. SKIN: No rash, no masses palpable. NEUROLOGICAL: The patient is awake, alert, oriented x3, mood and affect normal. Results CBC & Chem 7: 07/27/19 07:50 07/27/19 07:50 Labs: Abnormal Lab Results - Last 24 Hours (Table) 07/27/19 07/27/19 Range/Units 07:50 07:50 WBC 15.2 H (3.8-10.6) k/uL RDW 17.0 H (11.5-15.5) % Neutrophils # 13.9 H (1.3-7.7) k/uL Lymphocytes # 0.3 L (1.0-4.8) k/uL Glucose 127 H (74-99) mg/dL AST 165 H (14-36) U/L ALT 220 H (9-52) U/L Alkaline Phosphatase 215 H (38-126) U/L Assessment and Plan Assessment: 1-patient presented to hospital with sepsis in this patient who did have fever and elevated white count however currently with no clear focus of infection patient did have mildly elevated liver enzymes oh has been negative of the gallbladder area and ct of abdominal pelvis did not show any acute abnormality. question of possible viral syndrome Plan: 1-we will check influenza PCR 2-check a pro-calcitonin and CRP level 3-continue Zosyn were waiting for the culture finalized however discontinue the vancomycin
[2019-07-28] MEDS: PIPERACILLIN-TAZOBACTAM 3.375 GM in SODIUM CHLORIDE 0.9% 100 ML IVPB SCH ×3 (00:59→15:49)
[2019-07-28] MEDS: VANCOMYCIN 1,500 MG in SODIUM CHLORIDE 0.9% 250 ML IVPB SCH ×2 (02:35→13:25)
[2019-07-28] MEDS: LEVOTHYROXINE 50 MCG TAB PO SCH (06:23)
[2019-07-28] MEDS ORDERED: VANCOMYCIN 1,500 MG in SODIUM CHLORIDE 0.9% 250 ML IVPB SCH (07:00)
[2019-07-28] MEDS: SYMBICORT 160-4.5 MCG INHALER INHALATION SCH ×2 (07:57→19:45)
[2019-07-28] MEDS: PANTOPRAZOLE 40 MG TABLET PO SCH (08:08)
[2019-07-28] MEDS: MELOXICAM 7.5 MG TAB PO SCH (08:08)
[2019-07-28] MEDS: SUCRALFATE 1 GM TAB PO SCH ×4 (08:08→20:23)
[2019-07-28] MEDS: ALLOPURINOL 300 MG TAB PO SCH (08:08)
[2019-07-28] MEDS: GABAPENTIN 100 MG CAP PO SCH ×2 (08:08→11:24)
[2019-07-28 08:53] LABS: Appearance,Urine Clear (Clear); Bacteria,Urine Occasional /hpf; Bilirubin,Urine Negative (Negative); Blood,Urine Negative (Negative); Color,Urine Yellow; Glucose,Urine (UA) Negative (Negative); Hyaline Casts,Urine 1 /lpf (0-2); Ketones,Urine Negative (Negative); Leukocyte Esterase,Urine Negative (Negative); Mucus,Urine Rare /hpf; Nitrite,Urine Negative (Negative); PH, Urine 5.5 (5.0-8.0); Protein,Urine 1+ (Negative); RBC,Urine 1 /hpf (0-5); Urobilinogen,Urine <2.0 mg/dL (<2.0)
[2019-07-28] MEDS: COLCHICINE 0.6 MG EACH PO SCH (09:04)
[2019-07-28 09:17] LABS: Anisocytosis Slight; Basophils % (A) 0 %; Eosinophils # (A) 0.3 k/uL (0-0.7); Eosinophils % (A) 3 %; HCT 34.7 % (34.0-46.0); HGB 11.3 gm/dL (11.4-16.0); Hypochromasia Slight; Lymphocytes # (A) 0.6 k/uL (1.0-4.8); Lymphocytes % (A) 7 %; MCHC 32.5 g/dL (31.0-37.0); MCV 89.1 fL (80.0-100.0); Mean Platelet Volume 7.8; Monocytes # (A) 0.2 k/uL (0-1.0); Monocytes % (A) 3 %; Neutrophils # (A) 7.5 k/uL (1.3-7.7); Neutrophils % (A) 86 %; Platelet Count 273 k/uL (150-450); RBC 3.89 m/uL (3.80-5.40); RDW 18.1 % (11.5-15.5); WBC 8.7 k/uL (3.8-10.6)
[2019-07-28 09:27] LABS: Albumin 3.5 g/dL (3.5-5.0); Bilirubin, Delta 0.2 mg/dL (0.0-0.2); Bilirubin,Unconjugated 0.4 mg/dL (0.0-1.1); Calcium 9.5 mg/dL (8.4-10.2); Potassium 2.8 mmol/L (3.5-5.1); Total Bilirubin 0.6 mg/dL (0.2-1.3); Total Protein 5.9 g/dL (6.3-8.2)
[2019-07-28] MEDS ORDERED: Potassium Replacement Protocol 1 EACH MISC MISCELLANE PRN ×2 (10:33→14:16)
[2019-07-28 10:38] LABS: C Reactive Protein 199.2 mg/L (<10.0)
[2019-07-28] MEDS: POTASSIUM CHLORIDE ER 20 MEQ TAB.ER PO SCH ×4 (10:38→15:46)
[2019-07-28 13:28] VITALS: BMI 35.3
[2019-07-28] MEDS ORDERED: POTASSIUM CHLORIDE ER 20 MEQ TAB.ER PO STA (15:42)
--- NOTE | 2019-07-28 15:58 | P.PN ---
Subjective Progress Note Date: 07/28/19 Principal diagnosis: Patient very pleasant 58-year-old female was discharged yesterday after she was treated for right lower leg cellulitis and patient was discharged on Bactrim. P atient came back again with temperature of 103 and 104 and patient has multiple elevations of temperature. Patient was sent on vancomycin. Patient denied any UTI-like symptoms although he is not available blood cultures were obtained, patient was complaining of on and off nausea symptoms has been going on for some time patient cannot tolerate fatty diet and patient is also complaining of left upper and the right upper quadrant abdominal pain on and off with [id number] severity because of which are as an ultrasound of the abdomen considering elevated liver enzymes ultrasound of the abdomen did not show any significant abnormality also ordered hepatitis panel. Patient to right axillary light is also improved significantly. Patient denied any diarrhea patient chest x-ray did not show any pneumonic process considering that the patient had significantly improved cellulitis in spite of which patient is having fever because of which I'll obtain a CAT scan of the abdomen patient was also complaining of headache, although there is no photophobia patient denied any diarrhea 07/28/2019 Patient is sitting up in the chair in no acute distress. Patient looks fatigued overall. Has a low-grade temp at 99.4 this morning. Patient denies any shortness of breath, chest pain or palpitations at this time. Patient denies any vomiting but has periods of nausea and hasn't been eating very well. Infectious disease is following. Patient is currently on IV antibiotics and will continue. Cultures thus far are negative. Right lower extremity puncture wound has a scab in the center of it with no redness or swelling noted. Patient states it is not tender to the touch anymore. No acute overnight events. Objective - Vital Signs Vital signs: Vital Signs Temp 98.1 F 07/28/19 14:04 Pulse 64 07/28/19 14:04 Resp 16 07/28/19 14:04 BP 107/72 07/28/19 14:04 Pulse Ox 93 L 07/28/19 14:04 Intake & Output 07/27/19 07/28/19 07/28/19 18:59 06:59 18:59 Intake Total 710 540 Balance 710 540 Weight 82.1 kg 82.1 kg Intake: Oral 710 540 Other: Voiding Method Toilet # Voids 2 2 - Exam GENERAL: The patient is alert and oriented x3, appears to be fatigued and in no acute distress. Well developed, well nourished. Vital signs are stable. Blood pressure is 106/65, pulse is 89, respirations are 16, oxygen saturation is 96% on room air, low-grade temp of 99.4F HEENT: Pupils are round and equally reacting to light. EOMI. No scleral icterus. No conjunctival pallor. Normocephalic, atraumatic. No pharyngeal erythema. No thyromegaly. CARDIOVASCULAR: S1 and S2 present. No murmurs, rubs, or gallops. PULMONARY: Chest is clear to auscultation, no wheezing or crackles. ABDOMEN: Soft, nontender, nondistended, normoactive bowel sounds. No palpable organomegaly. MUSCULOSKELETAL: No joint swelling or deformity. EXTREMITIES: No cyanosis, clubbing, mild pitting +1 pedal edema noted to the left more so than the right NEUROLOGICAL: Gross neurological examination did not reveal any focal deficits. SKIN: No rashes. Puncture wound on the back of the right calf has a scab noted with no redness or swelling. - Labs CBC & Chem 7: 07/28/19 08:54 07/28/19 13:45 Labs: Abnormal Lab Results - Last 24 Hours (Table) 07/28/19 07/28/19 07/28/19 Range/Units 08:20 08:54 08:54 Hgb 11.3 L (11.4-16.0) gm/dL RDW 18.1 H (11.5-15.5) % Lymphocytes # 0.6 L (1.0-4.8) k/uL Potassium 2.8 L (3.5-5.1) mmol/L Glucose 182 H (74-99) mg/dL AST 77 H (14-36) U/L ALT 189 H (9-52) U/L Alkaline Phosphatase 175 H (38-126) U/L C-Reactive Protein 199.2 H (<10.0) mg/L Total Protein 5.9 L (6.3-8.2) g/dL Lipase 410 H (23-300) U/L Urine Protein 1+ H (Negative) Urine Bacteria Occasional H (None) /hpf Urine Mucus Rare H (None) /hpf 07/28/19 Range/Units 13:45 Hgb (11.4-16.0) gm/dL RDW (11.5-15.5) % Lymphocytes # (1.0-4.8) k/uL Potassium 3.1 L (3.5-5.1) mmol/L Glucose (74-99) mg/dL AST (14-36) U/L ALT (9-52) U/L Alkaline Phosphatase (38-126) U/L C-Reactive Protein (<10.0) mg/L Total Protein (6.3-8.2) g/dL Lipase (23-300) U/L Urine Protein (Negative) Urine Bacteria (None) /hpf Urine Mucus (None) /hpf Microbiology - Last 24 Hours (Table) 07/27/19 07:50 Blood Culture - Preliminary Blood No Growth after 24 hours Assessment and Plan Assessment: -Sepsis source of infection is not clear patient was recently treated for right lower limb cellulitis; patient was started on broad-spectrum antibiotics causing her abdominal pain developed and CAT scan of the abdomen; infectious disease will be consulted patient will also be started on Zosyn until we find out accurately the source of infection. Patient Lasix which will be held. -Possible right leg cellulitis which actually improved significantly since her last hospitalization continue the vancomycin as mentioned above -Elevated liver enzymes ultrasound did not show any cholelithiasis hepatitis panel is negative. statin will be held. - anemia of chronic disease -COPD without any acute exacerbation -Hyperlipidemia -hypothyroidism -Gout for which patient is on colchicine and chronic basis which will be continued -Hiatal hernia Recommendations and discussion: Recommend continue current medications, management, and symptomatic treatment. Patient's potassium was 2.8 this morning and replaced. Is currently 3.1 and will give an additional 40 mEq of potassium and recheck a.m. labs. Patient is currently on IV antibiotics in the form of Zosyn and Vanco per infectious disease recommendations and will continue at this time. Hepatitis panel is negative. Will continue to monitor closely. Guarded prognosis. Further recommendations to follow.
[2019-07-28] MEDS: GABAPENTIN 300 MG CAP PO SCH (20:23)
[2019-07-28] MEDS: PRAMIPEXOLE 0.5 MG TAB PO SCH (20:23)
[2019-07-28] MEDS: CITALOPRAM HYDROBROMIDE 10 MG TAB PO SCH (20:23)
[2019-07-28] MEDS: MONTELUKAST 10 MG TAB PO SCH (20:23)
--- NOTE | 2019-07-28 22:50 | PN ---
PROGRESS NOTE DATE OF SERVICE: 07/28/2019 REASON FOR FOLLOWUP: Fever. INTERVAL HISTORY: The patient's overall fever pattern has improved. The last temperature was last evening of 101.7. No fever has been reported since then. The patient is feeling weak and lethargic. No energy. No chest pain. Occasional cough. No nausea or vomiting. No abdominal pain. She has been complaining of some pain in the knee area but no recent worsening. No diarrhea. PHYSICAL EXAMINATION: Blood pressure 104/70 with a pulse of 73, temperature 99. She is 99% on room air. General description is a middle-aged female lying in bed in no distress. RESPIRATORY SYSTEM: Unlabored breathing. Clear to auscultation anteriorly. HEART: S1, S2. Regular rate and rhythm. ABDOMEN: Soft. No tenderness. LABS: Hemoglobin is 11.3, white count 8.7 with a BUN of 10, creatinine 0.95. Liver enzymes are mildly elevated as well as CRP and procalcitonin. DIAGNOSTIC IMPRESSION AND PLAN: Patient admitted to hospital with sepsis in this patient who did have a fever and elevated liver enzymes. However, she did have an extensive workup, including a CT of the chest, abdomen and pelvis and ultrasound of the gallbladder, with no acute abnormality. Cultures have been negative so far. The patient's fever responded to current broad-spectrum antibiotics in the form of Zosyn and vancomycin. We will obtain a tagged WBC scan to pinpoint the possible source. Continue with Zosyn. Discontinue vancomycin to decrease risk of nephrotoxicity, as clinically suspicion for a gram- positive infection. Continue supportive care. MMODL / IJN: [id number] /
[2019-07-29] MEDS: PIPERACILLIN-TAZOBACTAM 3.375 GM in SODIUM CHLORIDE 0.9% 100 ML IVPB SCH ×3 (00:11→15:29)
[2019-07-29] MEDS: LEVOTHYROXINE 50 MCG TAB PO SCH (05:10)
[2019-07-29 06:53] LABS: Anisocytosis Slight; Basophils % (A) 0 %; Eosinophils # (A) 0.3 k/uL (0-0.7); Eosinophils % (A) 7 %; HCT 29.7 % (34.0-46.0); Hypochromasia Slight; Lymphocytes # (A) 0.9 k/uL (1.0-4.8); Lymphocytes % (A) 19 %; MCH 29.3 pg (25.0-35.0); MCHC 32.8 g/dL (31.0-37.0); MCV 89.1 fL (80.0-100.0); Monocytes # (A) 0.3 k/uL (0-1.0); Monocytes % (A) 6 %; Neutrophils # (A) 3.3 k/uL (1.3-7.7); Neutrophils % (A) 67 %; Platelet Count 269 k/uL (150-450); RBC 3.34 m/uL (3.80-5.40); RDW 17.8 % (11.5-15.5)
[2019-07-29 07:08] LABS: African American GFR (CKD) >90 (>60 ml/min/1.73 sqM); Anion Gap 6 mmol/L; Blood Urea Nitrogen 8 mg/dL (7-17); Calcium 9.1 mg/dL (8.4-10.2); Carbon Dioxide 22 mmol/L (22-30); Chloride 110 mmol/L (98-107); Glucose 87 mg/dL (74-99); Potassium 3.7 mmol/L (3.5-5.1); Sodium 138 mmol/L (137-145)
[2019-07-29 07:21] LABS: HGB 9.8 gm/dL (11.4-16.0)
[2019-07-29] MEDS: SYMBICORT 160-4.5 MCG INHALER INHALATION SCH ×2 (07:50→18:59)
[2019-07-29] MEDS: GABAPENTIN 100 MG CAP PO SCH ×2 (07:51→12:04)
[2019-07-29] MEDS: SUCRALFATE 1 GM TAB PO SCH ×4 (07:51→20:40)
[2019-07-29] MEDS: MELOXICAM 7.5 MG TAB PO SCH (07:51)
[2019-07-29] MEDS: ALLOPURINOL 300 MG TAB PO SCH (07:52)
[2019-07-29] MEDS: COLCHICINE 0.6 MG EACH PO SCH (07:52)
[2019-07-29] MEDS: PANTOPRAZOLE 40 MG TABLET PO SCH (07:58)
[2019-07-29] MEDS ORDERED: VANCOMYCIN TROUGH DUE 1 EACH MISC MISCELLANE ONE (13:00)
[2019-07-29] MEDS: FUROSEMIDE 40 MG TAB PO SCH (14:04)
--- NOTE | 2019-07-29 15:43 | P.PN ---
Subjective Progress Note Date: 07/29/19 Principal diagnosis: Patient very pleasant 58-year-old female was discharged yesterday after she was treated for right lower leg cellulitis and patient was discharged on Bactrim. P atient came back again with temperature of 103 and 104 and patient has multiple elevations of temperature. Patient was sent on vancomycin. Patient denied any UTI-like symptoms although he is not available blood cultures were obtained, patient was complaining of on and off nausea symptoms has been going on for some time patient cannot tolerate fatty diet and patient is also complaining of left upper and the right upper quadrant abdominal pain on and off with [id number] severity because of which are as an ultrasound of the abdomen considering elevated liver enzymes ultrasound of the abdomen did not show any significant abnormality also ordered hepatitis panel. Patient to right axillary light is also improved significantly. Patient denied any diarrhea patient chest x-ray did not show any pneumonic process considering that the patient had significantly improved cellulitis in spite of which patient is having fever because of which I'll obtain a CAT scan of the abdomen patient was also complaining of headache, although there is no photophobia patient denied any diarrhea 07/28/2019 Patient is sitting up in the chair in no acute distress. Patient looks fatigued overall. Has a low-grade temp at 99.4 this morning. Patient denies any shortness of breath, chest pain or palpitations at this time. Patient denies any vomiting but has periods of nausea and hasn't been eating very well. Infectious disease is following. Patient is currently on IV antibiotics and will continue. Cultures thus far are negative. Right lower extremity puncture wound has a scab in the center of it with no redness or swelling noted. Patient states it is not tender to the touch anymore. No acute overnight events. 07/29/2019 Patient is sitting up at the site of the bed in no acute distress. Patient looks less fatigued today and states that she has been walking the halls. Patient denies any shortness of breath, chest pain, or palpitations at this time. Patient denies any nausea or vomiting and has been tolerating diet. Patient is afebrile today. Patient is undergoing a nuclear med WBC whole body study per infectious disease recommendations and went down for the first part of the procedure this morning. Patient states she is to go again after 4 PM finished the study. Will await report. Patient is having some increase swelling of her bilateral feet on the left more so than the right and is requesting her Lasix be resumed. Will monitor labs in the morning. Objective - Vital Signs Vital signs: Vital Signs Temp 98.1 F 07/29/19 15:00 Pulse 65 07/29/19 15:00 Resp 16 07/29/19 15:00 BP 118/70 07/29/19 15:00 Pulse Ox 100 07/29/19 15:00 Intake & Output 07/28/19 07/29/19 07/29/19 18:59 06:59 18:59 Intake Total 1080 700 100 Balance 1080 700 100 Weight 82.1 kg Intake: IV 100 Piperacillin-Tazobactam 3 100 .375 gm In Sodium Chloride 0.9% 100 ml @ 25 mls/hr IVPB Q8HR [facility] Rx# :[id number] Oral 1080 700 Other: Voiding Method Toilet # Voids 2 2 # Bowel Movements 1 - Exam GENERAL: The patient is alert and oriented x3, appears to be in no acute distress. Well developed, well nourished. Vital signs are stable. Blood pressure is 100/60, pulse is 67, respirations are 18, oxygen saturation is 77 % on room air, and temp of 98F HEENT: Pupils are round and equally reacting to light. EOMI. No scleral icterus. No conjunctival pallor. Normocephalic, atraumatic. No pharyngeal erythema. No thyromegaly. CARDIOVASCULAR: S1 and S2 present. No murmurs, rubs, or gallops. PULMONARY: Chest is clear to auscultation, no wheezing or crackles. ABDOMEN: Soft, nontender, nondistended, normoactive bowel sounds. No palpable organomegaly. MUSCULOSKELETAL: No joint swelling or deformity. EXTREMITIES: No cyanosis, clubbing, mild pitting +1 pedal edema noted to the lef t more so than the right NEUROLOGICAL: Gross neurological examination did not reveal any focal deficits. SKIN: No rashes. Puncture wound on the back of the right calf has a scab noted with no redness or swelling. - Labs CBC & Chem 7: 07/29/19 06:25 07/29/19 06:25 Labs: Abnormal Lab Results - Last 24 Hours (Table) 07/28/19 07/29/19 07/29/19 Range/Units 08:54 06:25 06:25 RBC 3.34 L (3.80-5.40) m/uL Hgb 9.8 L D (11.4-16.0) gm/dL Hct 29.7 L (34.0-46.0) % RDW 17.8 H (11.5-15.5) % Lymphocytes # 0.9 L (1.0-4.8) k/uL Chloride 110 H (98-107) mmol/L Procalcitonin 3.10 H (0.02-0.09) ng/mL Microbiology - Last 24 Hours (Table) 07/27/19 07:50 Blood Culture - Preliminary Blood No Growth after 48 hours Assessment and Plan Assessment: -Sepsis source of infection is not clear patient was recently treated for right lower limb cellulitis; patient was started on broad-spectrum antibiotics causing her abdominal pain developed and CAT scan of the abdomen; infectious disease will be consulted patient will also be started on Zosyn until we find out accurately the source of infection. -Possible right leg cellulitis which actually improved significantly since her last hospitalization continue the vancomycin as mentioned above -Elevated liver enzymes ultrasound did not show any cholelithiasis hepatitis panel is negative. statin will be held. - anemia of chronic disease -COPD without any acute exacerbation -Hyperlipidemia -hypothyroidism -Gout for which patient is on colchicine and chronic basis which will be continued -Hiatal hernia Recommendations and discussion: Recommend continue current medications, management, and symptomatic treatment. Patient is undergoing a WBC body study today and is currently pending. Infectious disease is following. Will continue to monitor closely. Guarded prognosis. Further recommendations to follow.
--- NOTE | 2019-07-29 19:33 | PN ---
PROGRESS NOTE DATE OF SERVICE: 07/29/2019. REASON FOR FOLLOWUP: Fever and sepsis. INTERVAL HISTORY: The patient is currently afebrile. No temperature has been recorded over the last 48 hours. The patient denies having any headache. The patient did have very minimal cough. Not bringing up any sputum. No chest pain. No nausea, vomiting. No abdominal pain. No diarrhea. PHYSICAL EXAMINATION: Blood pressure is 118/70 with a pulse of 75, temperature 98.1. She is 100% on room air. General description is a middle-aged female up in the bed in no distress. Respiratory system: Unlabored breathing, clear to auscultation anteriorly. Heart S1, S2. Regular rate and rhythm. Abdomen soft. No tenderness. Extremities are no edema of the feet. LABS: Hemoglobin 9.1, white count 5.0, BUN of 8, creatinine is 0.78. Blood culture has been negative. DIAGNOSTIC IMPRESSION AND PLAN: Patient admitted to the hospital with sepsis in this patient who did have fever and elevated white count. However, we do not have any clinical focus of infection with all cultures so far negative. We are waiting for the WBC scan to be finalized. Continue Zosyn while awaiting further culture and workup to be completed and continue supportive care. MMODL / IJN: [id number] /
[2019-07-29] MEDS: GABAPENTIN 300 MG CAP PO SCH (20:40)
[2019-07-29] MEDS: CITALOPRAM HYDROBROMIDE 10 MG TAB PO SCH (20:40)
[2019-07-29] MEDS: MONTELUKAST 10 MG TAB PO SCH (20:40)
[2019-07-29] MEDS: PRAMIPEXOLE 0.5 MG TAB PO SCH (20:40)
[2019-07-30] MEDS: PIPERACILLIN-TAZOBACTAM 3.375 GM in SODIUM CHLORIDE 0.9% 100 ML IVPB SCH ×2 (00:07→08:37)
[2019-07-30 06:02] LABS: Anisocytosis Slight; Basophils % (A) 1 %; Eosinophils # (A) 0.4 k/uL (0-0.7); Eosinophils % (A) 7 %; HCT 33.6 % (34.0-46.0); HGB 10.5 gm/dL (11.4-16.0); Hypochromasia Slight; Lymphocytes # (A) 1.1 k/uL (1.0-4.8); Lymphocytes % (A) 20 %; MCH 28.1 pg (25.0-35.0); MCHC 31.2 g/dL (31.0-37.0); MCV 89.9 fL (80.0-100.0); Mean Platelet Volume 7.1; Monocytes # (A) 0.3 k/uL (0-1.0); Monocytes % (A) 6 %; Neutrophils # (A) 3.5 k/uL (1.3-7.7); Neutrophils % (A) 65 %; Platelet Count 348 k/uL (150-450); RBC 3.74 m/uL (3.80-5.40); RDW 16.6 % (11.5-15.5); WBC 5.4 k/uL (3.8-10.6)
[2019-07-30 06:12] LABS: Calcium 9.5 mg/dL (8.4-10.2); Potassium 3.1 mmol/L (3.5-5.1)
[2019-07-30] MEDS: LEVOTHYROXINE 50 MCG TAB PO SCH (06:23)
[2019-07-30] MEDS: SYMBICORT 160-4.5 MCG INHALER INHALATION SCH ×2 (07:20→09:32)
--- NOTE | 2019-07-30 08:16 | NM ---
EXAMINATION TYPE: NM WBC whole body DATE OF EXAM: 07/30/2019 COMPARISON: NONE HISTORY: Fever of unknown origin TECHNIQUE: Following administration of 19.9 mCi Tc99m Ceretec. Images obtained 4 hour(s) and 19 raj r(s) post injection. FINDINGS: Normal physiological tracer activity is noted in the liver and spleen and in the bone marrow of the a xial and appendicular skeleton. There may be some mild uptake within the soft tissues of the left posterior elbow Level of the distal humerus. Injection site of the radiotracer appears to be at the left wrist. IMPRESSION: 1. Some mild focal radiotracer may be at the left elbow. 2. Radiotracer distribution otherwise appears normal. No suspicious additional areas to account for p ossible fever of unknown origin.
[2019-07-30 08:19] VITALS: RESP 16
[2019-07-30] MEDS: FUROSEMIDE 40 MG TAB PO SCH (08:36)
[2019-07-30] MEDS: SUCRALFATE 1 GM TAB PO SCH ×2 (08:37→12:37)
[2019-07-30] MEDS: COLCHICINE 0.6 MG EACH PO SCH (08:37)
[2019-07-30] MEDS: ALLOPURINOL 300 MG TAB PO SCH (08:37)
[2019-07-30] MEDS: MELOXICAM 7.5 MG TAB PO SCH (08:37)
[2019-07-30] MEDS: PANTOPRAZOLE 40 MG TABLET PO SCH (08:37)
[2019-07-30] MEDS: GABAPENTIN 100 MG CAP PO SCH ×2 (08:37→12:37)
[2019-07-30] MEDS ORDERED: POTASSIUM CHLORIDE ER 20 MEQ TAB.ER PO SCH (09:00)
[2019-07-30] MEDS: POTASSIUM CHLORIDE ER 20 MEQ TAB.ER PO SCH ×2 (09:49→11:07)
--- NOTE | 2019-07-30 12:58 | P.DS ---
Providers Date of admission: 07/29/19 08:26 Expected date of discharge: 07/30/19 Attending physician: Sofia Conway Consults: 07/27/19 12:46 Consult Physician Routine Consulting Provider: Olivier Nation Consult Reason/Comments: Hypoxia and possible aspiration Do you want consulting provider notified?: Yes Primary care physician: [facility] Course: Final diagnosis Sepsis, source of infection is not clear Possible right leg cellulitis Elevated liver enzymes Anemia of chronic disease COPD without any acute exacerbation Hyperlipidemia hypothyroidism Gout Hiatal hernia Discharge disposition Patient is being discharged in a stable condition with guarded prognosis to home and will follow-up with infectious disease Dr. Nation in the clinic in one week. Patient is instructed to obtain repeat labs in 4-5 days prior to the follow-up appointment. Total time taken is 35 minutes. History of present illness This is a 58-year-old female was recently admitted for right leg cellulitis and was discharged home. Patient went home in the next morning felt worse and had fevers and was readmitted for possible sepsis with an unknown source of infection and is being closely monitored. Infectious disease was consulted and following. She was on IV antibiotics during hospitalization and per infectious disease recommendations patient will go home with no antibiotics at this time and follow-up in one week in the clinic. Patient underwent a WBC study which was normal. Currently patient's condition is stable with much improvement. Patient instructed to continue using Tylenol or Motrin alternating for fevers. Patient encouraged to drink more water and rest. Patient is having some swelling of the bilateral lower extremities and her Lasix will be resumed. Melissa ent instructed to elevate legs while at rest. Patient denies any chest pain, shortness of breath, or palpitations at this time. Patient denies any nausea or vomiting and has been tolerating diet. Patient is currently afebrile at this time. Guarded prognosis. On exam vital signs are stable. Blood pressure is 111/64, pulse is 66, respirations are 16, oxygen saturation is 100% on room air, temp is 99F. Cardio S1 and S2 are normal. Respiratory system shows diminished breath sounds at the bases otherwise clear to auscultation. Abdomen is soft, obese, and nontender. Nervous system shows no focal deficits and gait is steady. Please refer to medication reconciliation sheet for a list of medications. Patient Condition at Discharge: Stable Plan - Discharge Summary Discharge Rx Participant: No New Discharge Prescriptions: New Potassium Chloride ER [K-Dur 20] 20 meq PO DAILY 30 Days #30 tab.er.prt Continue Montelukast Sodium [Singulair] 10 mg PO HS Gabapentin [Neurontin] 300 mg PO HS Theophylline 12 Hour [Ishan-Dur] 300 mg PO BID Meloxicam [Mobic] 15 mg PO QAM Colchicine [Colcrys] 0.6 mg PO DAILY Omeprazole [PriLOSEC] 20 mg PO BID Furosemide [Lasix] 40 mg PO BID Budesonide/Formoterol Fumarate [Symbicort 160-4.5 Mcg Inhaler] 2 puff INHALA TION RT-BID Allopurinol [Zyloprim] 600 mg PO QAM Sucralfate [Carafate] 1 gm PO QID Pramipexole [Mirapex] 0.5 mg PO HS Levalbuterol Hfa Inhaler [Xopenex Hfa Inhaler] 4 puff INHALATION RT-Q4H PRN PRN Reason: Shortness Of Breath Levothyroxine Sodium [Synthroid] 50 mcg PO DAILY Citalopram Hydrobromide [CeleXA] 10 mg PO HS 30 Days #30 tab Gabapentin [Neurontin] 100 mg PO BID@0800,1200 Discontinued Atorvastatin [Lipitor] 20 mg PO HS 30 Days #30 tab Sulfamethox-Tmp 800-160Mg [Bactrim DS 800-160 mg] 1 tab PO BID 7 Days #14 Discharge Medication List Allopurinol [Zyloprim] 600 mg PO QAM 04/13/15 [History] Budesonide/Formoterol Fumarate [Symbicort 160-4.5 Mcg Inhaler] 2 puff INHALATION RT-BID 04/13/15 [History] Colchicine [Colcrys] 0.6 mg PO DAILY 04/13/15 [History] Furosemide [Lasix] 40 mg PO BID 04/13/15 [History] Gabapentin [Neurontin] 300 mg PO HS 04/13/15 [History] Meloxicam [Mobic] 15 mg PO QAM 04/13/15 [History] Montelukast Sodium [Singulair] 10 mg PO HS 04/13/15 [History] Omeprazole [PriLOSEC] 20 mg PO BID 04/13/15 [History] Sucralfate [Carafate] 1 gm PO QID 04/13/15 [History] Theophylline 12 Hour [Ishan-Dur] 300 mg PO BID 04/13/15 [History] Pramipexole [Mirapex] 0.5 mg PO HS 07/20/18 [History] Levalbuterol Hfa Inhaler [Xopenex Hfa Inhaler] 4 puff INHALATION RT-Q4H PRN 07/22/19 [History] Levothyroxine Sodium [Synthroid] 50 mcg PO DAILY 07/22/19 [History] Citalopram Hydrobromide [CeleXA] 10 mg PO HS 30 Days #30 tab 07/26/19 [Rx] Gabapentin [Neurontin] 100 mg PO BID@0800,1200 07/27/19 [History] Potassium Chloride ER [K-Dur 20] 20 meq PO DAILY 30 Days #30 tab.er.prt 07/30/19 [Rx] Follow up Appointment(s)/Referral(s): John Reddy MD [Primary Care Provider] - 1 Week Olivier Nation MD [STAFF PHYSICIAN] - 1 Week Ambulatory/Diagnostic Orders: C Reactive Protein [LAB.AMB] Time Frame: 5 Days, Location: None Selected Complete Blood Count w/diff [LAB.AMB] Time Frame: 5 Days, Location: None Selected Comprehensive Metabolic Panel [LAB.AMB] Time Frame: 5 Days, Location: None Selected Patient Instructions/Handouts: Fever in Adults (GEN) Activity/Diet/Wound Care/Special Instructions: Activity Limited until follow-up Encourage fluids and rest Continue to elevate legs while at rest Follow-up with Dr. Nation's office in one week Repeat labs in 5 days Continue taking Motrin and/or Tylenol if fever develops Follow-up with primary care provider upon discharge Discharge Disposition: HOME SELF-CARE
--- NOTE | 2019-07-30 13:52 | PN ---
PROGRESS NOTE DATE OF SERVICE: 07/30/2019 REASON FOR FOLLOWUP: Fever, question medication effect. INTERVAL HISTORY: The patient is currently afebrile. The patient has been breathing comfortably. Her main symptom remains to be slightly weak and no energy, but no headache. No runny nose. No shortness of breath. No abdominal pain. No diarrhea and no urinary symptoms. PHYSICAL EXAMINATION: On examination, blood pressure 111/64 with a pulse of 66, temperature of 99. She is 100% on room air. General description is a middle-aged female up in the bed in no distress. RESPIRATORY SYSTEM: Unlabored breathing, clear to auscultation anteriorly. HEART: S1, S2. Regular rate and rhythm. ABDOMEN: Soft, no tenderness. EXTREMITIES: No edema of the feet. LABS: Hemoglobin is 10.5, white count 5.4 with a BUN of 10, creatinine 0.95. Liver enzymes have improved as well. DIAGNOSTIC IMPRESSION AND PLAN: Patient admitted to the hospital with fever, question of medication effect, as the patient did symptoms responded and to report a similar episode in the past. Patient has been advised to stay away from [facility]. She will be able to go home. No antibiotics as we did not find any source of infection. WBC scan is negative. Will like to repeat her procalcitonin and CRP in a week and a close outpatient followup. The patient has been advised if any recurrence of fever or any change in her symptoms to let me know right away. MMODL / IJN: [id number] /
[2019-07-30 14:09] VITALS: BP 115/68; PULSE 62; TEMP 97.4
== END 2019-07-30 15:53 | disposition home or self-care (01) | DRG 872 ==
LOC: EC 06:54 → 4MS4W 13:09 → OBSVTOIN 07-29 08:26
PROVIDERS: ADMIT Internal Medicine; ATTEND Internal Medicine
DX: A41.9 Sepsis, unspecified organism (principal); L03.115 Cellulitis of right lower limb; D63.8 Anemia in other chronic diseases classified elsewhere; E03.9 Hypothyroidism, unspecified; E66.9 Obesity, unspecified; Z68.35 Body mass index [BMI] 35.0-35.9, adult; E78.5 Hyperlipidemia, unspecified; E86.0 Dehydration; I73.9 Peripheral vascular disease, unspecified; J44.9 Chronic obstructive pulmonary disease, unspecified; K21.9 Gastro-esophageal reflux disease without esophagitis; K44.9 Diaphragmatic hernia without obstruction or gangrene; M10.9 Gout, unspecified; M17.0 Bilateral primary osteoarthritis of knee; R09.02 Hypoxemia; S81.831A Puncture wound without foreign body, right lower leg, initial encounter; Z79.51 Long term (current) use of inhaled steroids; Z79.890 Hormone replacement therapy; Z79.899 Other long term (current) drug therapy; Z80.1 Family history of malignant neoplasm of trachea, bronchus and lung; Z80.52 Family history of malignant neoplasm of bladder; Z87.891 Personal history of nicotine dependence; Z90.710 Acquired absence of both cervix and uterus; Z79.1 Long term (current) use of non-steroidal anti-inflammatories (NSAID); Z88.6 Allergy status to analgesic agent; Z91.011 Allergy to milk products; R74.8 Abnormal levels of other serum enzymes
CPT/HCPCS: 36415; 71046; 71260; 74160; 76705; 78806; 80048; 80053; 80074; 81001; 82150; 82248; 82550; 83605; 83690; 84075; 84132; 84145; 84450; 84460; 85025; 86140; 87040; 87502; 94640; 96361; 96365; 96366; 96368; 99285

== ENCOUNTER → 2019-08-02 | Outpatient (CLI) | payer OTHER ==
[2019-08-02 08:20] LABS: Anisocytosis Slight; Basophils # (A) 0.1 k/uL (0-0.2); Basophils % (A) 1 %; Eosinophils # (A) 0.3 k/uL (0-0.7); Eosinophils % (A) 4 %; HCT 40.2 % (34.0-46.0); HGB 13.3 gm/dL (11.4-16.0); Hypochromasia Slight; Lymphocytes # (A) 1.6 k/uL (1.0-4.8); Lymphocytes % (A) 21 %; MCH 28.7 pg (25.0-35.0); MCHC 33.1 g/dL (31.0-37.0); MCV 86.7 fL (80.0-100.0); Mean Platelet Volume 6.1; Monocytes # (A) 0.4 k/uL (0-1.0); Monocytes % (A) 5 %; Neutrophils # (A) 5.2 k/uL (1.3-7.7); Neutrophils % (A) 68 %; Platelet Count 538 k/uL (150-450); RBC 4.64 m/uL (3.80-5.40); RDW 16.1 % (11.5-15.5); WBC 7.7 k/uL (3.8-10.6)
[2019-08-02 16:02] LABS: African American GFR (CKD) 72.4 (60.0-200.0); Albumin 4.7 g/dL (3.80-4.90); Albumin/Globulin Ratio 2.61 (1.60-3.17); Anion Gap 12.4 mmol/L (4.00-12.00); C Reactive Protein 1.1 mg/dL (0.0-0.8); Calcium 10.2 mg/dL (8.7-10.3); Carbon Dioxide 27.6 mmol/L (21.6-31.8); Globulin 1.8 g/dL (1.6-3.3); Potassium 3.4 mmol/L (3.5-5.5); Procalcitonin 0.25 ng/mL (0.02-0.09); Total Bilirubin 0.3 mg/dL (0.3-1.2); Total Protein 6.5 g/dL (6.2-8.2)
[2019-08-02 18:34] LABS: Vitamin D 25 Hydroxy 25.7 ng/mL (30.0-100.0)
== END ==
LOC: LABWHC1 07:47
PROVIDERS: ATTEND Internal Medicine Endocrinology, Diabetes & Metabolism
DX: E21.3 Hyperparathyroidism, unspecified (principal); E87.6 Hypokalemia; A41.9 Sepsis, unspecified organism; L08.9 Local infection of the skin and subcutaneous tissue, unspecified; D72.829 Elevated white blood cell count, unspecified; L03.115 Cellulitis of right lower limb; R79.82 Elevated C-reactive protein (CRP); R79.89 Other specified abnormal findings of blood chemistry
CPT/HCPCS: 36415; 80053; 82306; 83970; 84145; 85025; 86140

== ENCOUNTER → 2019-09-17 | Outpatient (CLI) | payer OTHER ==
[2019-09-17 18:38] LABS: African American GFR (CKD) 94.9 (60.0-200.0); Anion Gap 7.5 mmol/L (4.00-12.00); BUN/Creat Ratio 21.25 Ratio (12.00-20.00); Calcium 9.9 mg/dL (8.7-10.3); Carbon Dioxide 32.5 mmol/L (21.6-31.8); Magnesium 2.6 mg/dL (1.5-2.4); Potassium 4.3 mmol/L (3.5-5.5)
== END | disposition home or self-care (01) ==
LOC: LABWHC1 13:04
PROVIDERS: ATTEND Nurse Practitioner Adult Health
DX: I10 Essential (primary) hypertension (principal)
CPT/HCPCS: 36415; 80048; 83735

== ENCOUNTER → 2020-04-12 | Outpatient (CLI) | payer OTHER ==
[2020-04-12 16:26] LABS: African American GFR (CKD) 81.7 (60.0-200.0); Albumin 4.8 g/dL (3.80-4.90); Albumin/Globulin Ratio 2.67 (1.60-3.17); Anion Gap 11.1 mmol/L (4.00-12.00); BUN/Creat Ratio 26.67 Ratio (12.00-20.00); Calcium 10.1 mg/dL (8.7-10.3); Carbon Dioxide 25.9 mmol/L (21.6-31.8); Globulin 1.8 g/dL (1.6-3.3); Non-African American GFR(CKD) 70.5 (60.0-200.0); Total Bilirubin 0.5 mg/dL (0.3-1.2); Total Protein 6.6 g/dL (6.2-8.2)
== END | disposition home or self-care (01) ==
LOC: LABWHC1 07:41
PROVIDERS: ATTEND Internal Medicine Endocrinology, Diabetes & Metabolism
DX: E55.9 Vitamin D deficiency, unspecified (principal); E21.3 Hyperparathyroidism, unspecified
CPT/HCPCS: 36415; 80053; 82306; 83970

== ENCOUNTER → 2020-07-17 | Outpatient (CLI) | payer OTHER ==
[2020-07-17 20:29] LABS: African American GFR (CKD) 57.7 (60.0-200.0); Albumin 4.7 g/dL (3.80-4.90); Albumin/Globulin Ratio 2.94 (1.60-3.17); Anion Gap 13.1 mmol/L (4.00-12.00); Carbon Dioxide 27.9 mmol/L (21.6-31.8); Globulin 1.6 g/dL (1.6-3.3); Non-African American GFR(CKD) 49.8 (60.0-200.0); Potassium 3.3 mmol/L (3.5-5.5); Total Bilirubin 0.4 mg/dL (0.2-1.2); Total Protein 6.3 g/dL (6.2-8.2)
== END | disposition home or self-care (01) ==
LOC: LABWHC1 10:25
PROVIDERS: ATTEND Internal Medicine Endocrinology, Diabetes & Metabolism
DX: E21.3 Hyperparathyroidism, unspecified (principal); E55.9 Vitamin D deficiency, unspecified
CPT/HCPCS: 36415; 80053; 82306; 83970

== ENCOUNTER 2020-11-20 07:46 | Inpatient (IN) | payer OTHER ==
--- NOTE | 2020-11-20 08:39 | ED ---
General Adult HPI - General Chief complaint: Shortness of Breath Stated complaint: Covid+, SOB Time Seen by Provider: 11/20/20 07:55 Source: patient, EMS, RN notes reviewed, old records reviewed Mode of arrival: EMS Limitations: no limitations - History of Present Illness Initial comments: This is a 60-year-old female who presents emergency Department [facility] she went there because she was short of breath. Patient's pulse ox at that facility was between 86 and 88. Patient was sent over on BiPAP. Patient's chest x-ray showed "pneumonia. Patient did receive Solu-Medrol. Patient states she felt as though she is short of breath but only mildly. Patient denies any chest pain or palpitations. Patient denies any abdominal pain. Patient states she has had a fever and she was positive for COVID. - Related Data Home Medications Medication Instructions Recorded Confirmed Allopurinol [Zyloprim] 600 mg PO QAM 04/13/15 11/20/20 Budesonide/Formoterol Fumarate 2 puff INHALATION RT-BID 04/13/15 11/20/20 [Symbicort 160-4.5 Mcg Inhaler] Colchicine [Colcrys] 0.6 mg PO DAILY 04/13/15 11/20/20 Furosemide [Lasix] 40 mg PO BID 04/13/15 11/20/20 Gabapentin [Neurontin] 300 mg PO HS 04/13/15 11/20/20 Meloxicam [Mobic] 15 mg PO QAM 04/13/15 11/20/20 Montelukast Sodium [Singulair] 10 mg PO HS 04/13/15 11/20/20 Omeprazole [PriLOSEC] 20 mg PO BID 04/13/15 11/20/20 Sucralfate [Carafate] 1 gm PO QID 04/13/15 11/20/20 Theophylline 12 Hour [Ishan-Dur] 300 mg PO BID 04/13/15 11/20/20 Pramipexole [Mirapex] 0.5 mg PO HS 07/20/18 11/20/20 Levalbuterol Hfa Inhaler [Xopenex 4 puff INHALATION RT-Q6H PRN 07/22/19 11/20/20 Hfa Inhaler] Gabapentin [Neurontin] 100 mg PO BID@0800,1200 07/27/19 11/20/20 Effer-K 25meq 25 meq PO QID 11/20/20 11/20/20 Ergocalciferol (Vitamin D2) 1,250 mcg PO Q14D 11/20/20 11/20/20 [Vitamin D2 (50,000 units)] Ipratropium-Albuterol Nebulize 3 ml INHALATION RT-QID 11/20/20 11/20/20 [Duoneb 0.5 mg-3 mg/3 ml Soln] Levothyroxine Sodium [Euthyrox] 75 mcg PO DAILY 11/20/20 11/20/20 Loratadine [Claritin] 10 mg PO DAILY 11/20/20 11/20/20 Simvastatin [Zocor] 80 mg PO HS 11/20/20 11/20/20 Allergies Allergy/AdvReac Type Severity Reaction Status Date / Time milk Allergy Dyspnea,swe Verified 11/20/20 09:03 lling aspirin AdvReac Abdominal Verified 11/20/20 09:03 Pain, headache Review of Systems ROS Statement: Those systems with pertinent positive or pertinent negative responses have been documented in the HPI. ROS Other: All systems not noted in ROS Statement are negative. Past Medical History Past Medical History: Asthma, COPD, GERD/Reflux, Hyperlipidemia, Osteoarthritis (OA), Pneumonia, Thyroid Disorder, Vascular Disorder Additional Past Medical History / Comment(s): Pt recently admitted to [facility] on 07/22/19 with R calf infection/cellulitis/possible abscess with sepsis/random elevated blood sugar. Other hx: Bronchitis, arthritis in multiple joints, gout in several joints, DJD, neuropathy bilateral feet, fluid retention, PVD, hypothyroid, hypoglycemia, hypokalemia, normocytic anemia. History of Any Multi-Drug Resistant Organisms: None Reported Past Surgical History: Adenoidectomy, Section, Hysterectomy, Orthopedic Surgery, Tonsillectomy Additional Past Surgical History / Comment(s): L knee arthroscopy, R hand tendon repair, bilateral carpal tunnel releases, EGDs, colonoscopy, hemorrhoidectomy, varicose vein stripping and pt states a larger vein was "closed". Past Anesthesia/Blood Transfusion Reactions: Motion Sickness, Postoperative Nausea & Vomiting (PONV) Past Psychological History: No Psychological Hx Reported Smoking Status: Former smoker Past Alcohol Use History: None Reported Past Drug Use History: None Reported - Past Family History Father Family Medical History: Cancer Additional Family Medical History / Comment(s): LUNG CANCER Mother Family Medical History: Cancer Additional Family Medical History / Comment(s): BLADDER CANCER General Exam - General Exam Comments Initial Comments: GENERAL: Patient is well-developed and well-nourished. Patient is nontoxic and well- hydrated and is in mild distress. ENT: Neck is soft and supple. No significant lymphadenopathy is noted. Oropharynx is clear. Moist mucous membranes. Neck has full range of motion without eliciting any pain. EYES: The sclera were anicteric and conjunctiva were pink and moist. Extraocular movements were intact and pupils were equal round and reactive to light. Eyelids were unremarkable. PULMONARY: Patient has crackles bilateral bases. CARDIOVASCULAR: There is a regular rate and rhythm without any murmurs gallops or rubs. ABDOMEN: Soft and nontender with normal bowel sounds. SKIN: Skin is clear with no lesions or rashes and otherwise unremarkable. NEUROLOGIC: Patient is alert and oriented x3. Cranial nerves II through XII are grossly intact. Motor and sensory are also intact. Normal speech, volume and content. Symmetrical smile. MUSCULOSKELETAL: Normal extremities with adequate strength and full range of motion. LYMPHATICS: No significant lymphadenopathy is noted PSYCHIATRIC: Normal psychiatric evaluation. Limitations: no limitations Course Vital Signs 11/20/20 11/20/20 07:54 09:00 Temperature 98.2 F Pulse Rate 86 81 Respiratory 24 24 Rate Blood Pressure 96/52 107/60 O2 Sat by Pulse 96 97 Oximetry Medical Decision Making - Medical Decision Making I reviewed the outside x-ray did show COVID pneumonia. I spoke with because he agreed to admit the patient I admitted the patient wrote admitting orders. Disposition Clinical Impression: Pneumonia due to COVID-19 virus Disposition: ADMITTED IP TO THIS HOSP Referrals: John Reddy MD [Primary Care Provider] - 1-2 days Time of Disposition: 09:40
[2020-11-20] MEDS ORDERED: ALBUTEROL HFA INHALER INHALATION STA (14:20)
--- NOTE | 2020-11-20 14:33 | P.HPIM ---
History of Present Illness Patient is a pleasant 60-year-old female came in with compensative shortness of breath found to have very low oxygen saturations patient was diagnosed with Covid 19 about 3 days ago patient had having symptoms for about a week. Patient was also company of fever chills patient has low-grade fever here. Patient was seen in [facility] subsequently transferred here patient is presently on 15 L of oxygen. Patient does have history of COPD. Patient was started on Decadron. Pulmonary was consulted. She was complaining of for cough without any significant sputum production. Review of Systems REVIEW OF SYSTEMS: CONSTITUTIONAL: No fever, no malaise, no fatigue. HEENT: No recent visual problems or hearing problems. Denied any sore throat. CARDIOVASCULAR: No chest pain, orthopnea, PND, no palpitations, no syncope. PULMONARY: no hemoptysis. GASTROINTESTINAL: No diarrhea, no nausea, no vomiting, no abdominal pain. NEUROLOGICAL: No headaches, no weakness, no numbness. HEMATOLOGICAL: Denies any bleeding or petechiae. GENITOURINARY: Denies any burning micturition, frequency, or urgency. MUSCULOSKELETAL/RHEUMATOLOGICAL: Denies any joint pain, swelling, or any muscle pain. ENDOCRINE: Denies any polyuria or polydipsia. The rest of the 14-point review of systems is negative. Past Medical History Past Medical History: Asthma, COPD, GERD/Reflux, Hyperlipidemia, Osteoarthritis (OA), Pneumonia, Thyroid Disorder, Vascular Disorder Additional Past Medical History / Comment(s): Pt recently admitted to [facility] on 07/22/19 with R calf infection/cellulitis/possible abscess with sepsis/random elevated blood sugar. Other hx: Bronchitis, arthritis in multiple joints, gout in several joints, DJD, neuropathy bilateral feet, fluid retention, PVD, hypothyroid, hypoglycemia, hypokalemia, normocytic anemia. ex smoker- smoked 2ppd for 18 years History of Any Multi-Drug Resistant Organisms: None Reported Past Surgical History: Adenoidectomy, Section, Hysterectomy, Orthopedic Surgery, Tonsillectomy Additional Past Surgical History / Comment(s): L knee arthroscopy, R hand tendon repair, bilateral carpal tunnel releases, EGDs, colonoscopy, hemorrhoidectomy, varicose vein stripping and pt states a larger vein was "closed". Past Anesthesia/Blood Transfusion Reactions: Motion Sickness, Postoperative Nausea & Vomiting (PONV) Past Psychological History: No Psychological Hx Reported Additional Psychological History / Comment(s): Pt resides with her spouse. She uses no assistive device. Pt drives. Smoking Status: Former smoker Past Alcohol Use History: None Reported Additional Past Alcohol Use History / Comment(s): QUIT SMOKING IN 2006, STARTED SMOKING AGE 13- SMOKED 2PPD Past Drug Use History: None Reported - Past Family History Father Family Medical History: Cancer Additional Family Medical History / Comment(s): LUNG CANCER Mother Family Medical History: Cancer Additional Family Medical History / Comment(s): BLADDER CANCER Medications and Allergies Home Medications Medication Instructions Recorded Confirmed Type Allopurinol [Zyloprim] 600 mg PO QAM 04/13/15 11/20/20 History Budesonide/Formoterol Fumarate 2 puff INHALATION RT-BID 04/13/15 11/20/20 Histo ry [Symbicort 160-4.5 Mcg Inhaler] Colchicine [Colcrys] 0.6 mg PO DAILY 04/13/15 11/20/20 History Furosemide [Lasix] 40 mg PO BID 04/13/15 11/20/20 History Gabapentin [Neurontin] 300 mg PO HS 04/13/15 11/20/20 History Meloxicam [Mobic] 15 mg PO QAM 04/13/15 11/20/20 History Montelukast Sodium [Singulair] 10 mg PO HS 04/13/15 11/20/20 History Omeprazole [PriLOSEC] 20 mg PO BID 04/13/15 11/20/20 History Sucralfate [Carafate] 1 gm PO QID 04/13/15 11/20/20 History Theophylline 12 Hour [Ishan-Dur] 300 mg PO BID 04/13/15 11/20/20 History Pramipexole [Mirapex] 0.5 mg PO HS 07/20/18 11/20/20 History Levalbuterol Hfa Inhaler [Xopenex 4 puff INHALATION RT-Q6H PRN 07/22/19 11/20/20 History Hfa Inhaler] Gabapentin [Neurontin] 100 mg PO BID@0800,1200 07/27/19 11/20/20 History Effer-K 25meq 25 meq PO QID 11/20/20 11/20/20 History Ergocalciferol (Vitamin D2) 1,250 mcg PO Q14D 11/20/20 11/20/20 History [Vitamin D2 (50,000 units)] Ipratropium-Albuterol Nebulize 3 ml INHALATION RT-QID 11/20/20 11/20/20 History [Duoneb 0.5 mg-3 mg/3 ml Soln] Levothyroxine Sodium [Euthyrox] 75 mcg PO DAILY 11/20/20 11/20/20 History Loratadine [Claritin] 10 mg PO DAILY 11/20/20 11/20/20 History Simvastatin [Zocor] 80 mg PO HS 11/20/20 11/20/20 History Allergies Allergy/AdvReac Type Severity Reaction Status Date / Time milk Allergy Dyspnea,swe Verified 11/20/20 09:03 lling aspirin AdvReac Abdominal Verified 11/20/20 09:03 Pain, headache Physical Exam Vitals: Vital Signs Temp Pulse Pulse Resp BP BP Pulse Ox 11/20/20 13:42 75 18 92 L 11/20/20 13:41 75 18 11/20/20 11:30 99.1 F 75 18 99/58 93 L 11/20/20 11:00 98.9 F 86 18 100/59 99 11/20/20 10:00 84 20 99/54 99 11/20/20 09:00 81 24 107/60 97 11/20/20 07:54 98.2 F 86 24 96/52 96 Intake and Output 11/19/20 11/20/20 11/20/20 22:59 06:59 14:59 Intake Total 640 Output Total 400 Balance 240 Intake: IV 40 Invasive Line 1 20 Invasive Line 2 20 Oral 600 Output: Urine 400 Other: Weight 82.4 kg PHYSICAL EXAMINATION: GENERAL: The patient is alert and oriented x3, not in any acute distress. Well developed, well nourished. HEENT: Pupils are round and equally reacting to light. EOMI. No scleral icterus. No conjunctival pallor. Normocephalic, atraumatic. No pharyngeal erythema. No thyromegaly. CARDIOVASCULAR: S1 and S2 present. No murmurs, rubs, or gallops. PULMONARY: Diffuse bilateral rhonchi without any significant wheezing fairly good air entry into bilateral lung ruiz ABDOMEN: Soft, nontender, nondistended, normoactive bowel sounds. No palpable organomegaly. MUSCULOSKELETAL: No joint swelling or deformity. EXTREMITIES: No cyanosis, clubbing, patient does have some pedal edema NEUROLOGICAL: Gross neurological examination did not reveal any focal deficits. SKIN: No rashes. Results Labs: Abnormal Lab Results - Last 24 Hours (Table) 11/20/20 Range/Units 09:10 Coronavirus (PCR) Detected A (Not Detectd) Thrombosis Risk Factor Assmnt - Choose All That Apply Any of the Below Risk Factors Present?: Yes Each Factor Represents 1 point: Abnormal pulmonary function (COPD), Age 41-60 years, Obesity (BMI >25), Swollen legs (current), Varicose veins Other Risk Factors: Yes Other congenital or acquired thrombophilia - If yes, enter type in comment: No Thrombosis Risk Factor Assessment Total Risk Factor Score: 5 Thrombosis Risk Factor Assessment Level: High Risk Assessment and Plan Plan: -Acute hypoxic respiratory failure: Secondary to Covid 19 pneumonia patient was started on Decadron will order inflammatory markers and patient will be started on the GI prophylaxis as well as Lovenox for DVT prophylaxis -COPD with mild acute exacerbation secondary to Covid 19. Pulmonology was consulted -Hyperlipidemia -Hypothyroidism -History of gout for which she'll patient is on colchicine which will be continued -Peripheral edema: I do not have any labs available in [facility] left I get the labs and if her blood pressure can tolerate patient was started on Lasix IV temporarily -Hiatal hernia with gastroesophageal reflux disease patient was resumed on Prilosec CODE STATUS DO NOT RESUSCITATE
[2020-11-20 15:27] LABS: Basophils % (A) 0 %; Eosinophils % (A) 0 %; HCT 32.1 % (34.0-46.0); HGB 10.8 gm/dL (11.4-16.0); Lymphocytes # (A) 0.7 k/uL (1.0-4.8); Lymphocytes % (A) 16 %; MCHC 33.6 g/dL (31.0-37.0); MCV 86.5 fL (80.0-100.0); Mean Platelet Volume 7.6; Monocytes # (A) 0.2 k/uL (0-1.0); Monocytes % (A) 4 %; Neutrophils # (A) 3.6 k/uL (1.3-7.7); Neutrophils % (A) 79 %; Platelet Count 242 k/uL (150-450); RBC 3.71 m/uL (3.80-5.40); RDW 14.9 % (11.5-15.5); WBC 4.5 k/uL (3.8-10.6)
--- NOTE | 2020-11-20 15:32 | XR ---
EXAMINATION TYPE: XR chest 1V portable DATE OF EXAM: 11/20/2020 COMPARISON: Prior chest x-ray 07/27/2019, 11/20/2020 from outside institution HISTORY: Suspected Covid 19 pneumonia TECHNIQUE: Single frontal view of the chest is obtained. FINDINGS: Groundglass opacities present in the bilateral lungs. There is no evident pneumothorax or pleural effusion. Cardiac mediastinal silhouette is within normal limits. Aorta is dense. IMPRESSION: Correlate for pneumonia, edema, follow-up recommended
[2020-11-20 15:39] LABS: Albumin 3.1 g/dL (3.5-5.0); Calcium 7.9 mg/dL (8.4-10.2); Magnesium 2.1 mg/dL (1.6-2.3); Potassium 3.1 mmol/L (3.5-5.1); Total Bilirubin 0.4 mg/dL (0.2-1.3); Total Protein 5.6 g/dL (6.3-8.2)
[2020-11-20] MEDS: ALBUTEROL HFA INHALER INHALATION SCH ×2 (15:41→19:19)
[2020-11-20] MEDS: TIOTROPIUM 2.5 MCG INHALER INHALATION SCH (15:41)
[2020-11-20 15:50] LABS: C Reactive Protein 239.5 mg/L (<10.0)
[2020-11-20] MEDS ORDERED: IPRATROPIUM-ALBUTEROL 3 ML NEB INHALATION SCH (16:00)
[2020-11-20] MEDS: SUCRALFATE 1 GM TAB PO SCH ×2 (17:33→20:49)
[2020-11-20] MEDS: ENOXAPARIN 40 MG/0.4 ML SYRINGE SQ SCH (17:33)
[2020-11-20] MEDS: SYMBICORT 160-4.5 MCG INHALER INHALATION SCH (19:19)
[2020-11-20] MEDS: ATORVASTATIN 40 MG TAB PO SCH (20:49)
[2020-11-20] MEDS: MONTELUKAST 10 MG TAB PO SCH (20:49)
[2020-11-20] MEDS: PRAMIPEXOLE 0.5 MG TAB PO SCH (20:50)
[2020-11-20] MEDS: GABAPENTIN 300 MG CAP PO SCH (20:50)
[2020-11-20] MEDS: THEOPHYLLINE 24 HOUR 300 MG CAP.ER.24H PO SCH (20:50)
[2020-11-21 03:18] LABS: Ferritin 1480.9 ng/mL (10.0-291.0)
[2020-11-21] MEDS: LEVOTHYROXINE 75 MCG TAB PO SCH (06:38)
[2020-11-21] MEDS: ALBUTEROL HFA INHALER INHALATION SCH ×4 (09:00→19:38)
[2020-11-21] MEDS ORDERED: dexAMETHasone 2 MG TAB PO SCH (09:00)
[2020-11-21] MEDS: TIOTROPIUM 2.5 MCG INHALER INHALATION SCH (09:00)
[2020-11-21] MEDS: SYMBICORT 160-4.5 MCG INHALER INHALATION SCH ×2 (09:00→19:38)
[2020-11-21] MEDS ORDERED: PANTOPRAZOLE 40 MG TABLET PO SCH (09:00)
[2020-11-21] MEDS: GABAPENTIN 100 MG CAP PO SCH ×2 (09:12→12:40)
[2020-11-21] MEDS: SUCRALFATE 1 GM TAB PO SCH ×4 (09:12→21:51)
[2020-11-21] MEDS: ASCORBIC ACID 500 MG TAB PO SCH (09:12)
[2020-11-21] MEDS: ZINC SULFATE 220 MG CAP PO SCH (09:13)
[2020-11-21] MEDS: allopurinoL 300 MG TAB PO SCH (09:13)
[2020-11-21] MEDS: ENOXAPARIN 40 MG/0.4 ML SYRINGE SQ SCH (09:13)
[2020-11-21] MEDS: COLCHICINE 0.6 MG EACH PO SCH (09:14)
[2020-11-21] MEDS ORDERED: POTASSIUM CHLORIDE ER 20 MEQ TAB.ER PO STA (09:16)
[2020-11-21] MEDS: POTASSIUM CHLORIDE ER 20 MEQ TAB.ER PO SCH ×2 (09:29→12:41)
--- NOTE | 2020-11-21 10:32 | P.PN ---
Subjective 60-year-old female came in with compensative shortness of breath found to have very low oxygen saturations patient was diagnosed with Covid 19 about 3 days ago patient had having symptoms for about a week. Patient was also company of fever chills patient has low-grade fever here. Patient was seen in [facility] subsequently transferred here patient is presently on 15 L of oxygen. Patient does have history of COPD. Patient was started on Decadron. Pulmonary was consulted. She was complaining of for cough without any significant sputum production. 11/21/2020 Patient doesn't feel any better patient remains on 15 L of oxygen along with Ventimask. Breasts will be replaced patient has highly elevated inflammatory markers although d-dimer is 0.36 pulmonology will evaluate the patient to evaluate for the need for Remdesivir. Constitutional: As mentioned above Cardio vascular: denied any chest pain, palpitations Gastrointestinal denied any nausea vomiting Pulmonary: Still has shortness of breath tiredness and fatigue Neurologic denied any new focal deficits All inpatient medications were reviewed and appropriate changes in these medications as dictated in the interval history and assessment and plan. Objective - Vital Signs Vital signs: Vital Signs Temp 97.9 F 11/21/20 08:00 Pulse 77 11/21/20 08:00 Resp 28 H 11/21/20 08:00 BP 109/56 11/21/20 08:00 Pulse Ox 89 L 11/21/20 08:00 Intake & Output 11/20/20 11/21/20 11/21/20 18:59 06:59 18:59 Intake Total 840 40 125 Output Total 400 Balance 440 40 125 Weight 82.4 kg 75.6 kg Intake: IV 40 40 Invasive Line 1 20 20 Invasive Line 2 20 20 Oral 800 125 Output: Urine 400 Other: # Voids 2 1 - Exam PHYSICAL EXAMINATION: GENERAL: The patient is alert and oriented x3, not in any acute distress. Well developed, well nourished. HEENT: Pupils are round and equally reacting to light. EOMI. No scleral icterus. No conjunctival pallor. Normocephalic, atraumatic. No pharyngeal erythema. No thyromegaly. CARDIOVASCULAR: S1 and S2 present. No murmurs, rubs, or gallops. PULMONARY: Diffuse bilateral rhonchi without any significant wheezing fairly good air entry into bilateral lung ruiz ABDOMEN: Soft, nontender, nondistended, normoactive bowel sounds. No palpable organomegaly. MUSCULOSKELETAL: No joint swelling or deformity. EXTREMITIES: No cyanosis, clubbing, patient does have some pedal edema NEUROLOGICAL: Gross neurological examination did not reveal any focal deficits. SKIN: No rashes. - Labs CBC & Chem 7: 11/20/20 14:57 11/20/20 14:57 Labs: Abnormal Lab Results - Last 24 Hours (Table) 11/20/20 11/20/20 11/20/20 Range/Units 14:57 14:57 14:57 RBC 3.71 L (3.80-5.40) m/uL Hgb 10.8 L (11.4-16.0) gm/dL Hct 32.1 L (34.0-46.0) % Lymphocytes # 0.7 L (1.0-4.8) k/uL Sodium 134 L (137-145) mmol/L Potassium 3.1 L (3.5-5.1) mmol/L BUN 23 H (7-17) mg/dL Glucose 234 H (74-99) mg/dL Calcium 7.9 L (8.4-10.2) mg/dL Ferritin 1480.9 H (10.0-291.0) ng/mL AST 69 H (14-36) U/L ALT 37 H (4-34) U/L Lactate Dehydrogenase 1482 H (313-618) U/L Creatine Kinase 1120 H* (30-135) U/L C-Reactive Protein 239.5 H (<10.0) mg/L Total Protein 5.6 L (6.3-8.2) g/dL Albumin 3.1 L (3.5-5.0) g/dL Procalcitonin 1.28 H (0.02-0.09) ng/mL Assessment and Plan Plan: -Acute hypoxic respiratory failure: Secondary to Covid 19 pneumonia patient was started on Decadron will order inflammatory markers and patient will be started on the GI prophylaxis as well as Lovenox for DVT prophylaxis -COPD with mild acute exacerbation secondary to Covid 19. Pulmonology was consulted -Hyperlipidemia -Hypothyroidism -History of gout for which she'll patient is on colchicine which will be continued -Peripheral edema: Due to probably chronic venous stasis and patient will be resumed on Lasix oral. -Hiatal hernia with gastroesophageal reflux disease patient was resumed on Prilosec CODE STATUS DO NOT RESUSCITATE
--- NOTE | 2020-11-21 10:48 | P.CNPUL ---
History of Present Illness Consult date: 11/21/20 Reason for consult: dyspnea, hypoxemia, pneumonia History of present illness: 60-year-old here patient hospitalized for COVID 19 related pneumonia and hypoxemia. The patient was found to have a low oxygen saturation. She was diagnosed having COVID 19 on 11/20/2020. However, her symptoms started approximately a week prior to that as the patient started having generalized weakness, fever and chills. In the hospital at [place], she was found to be hypoxic and she was placed on 15 L of oxygen by nasal cannula. She was started on Decadron and following that she was transferred to [facility] on 11/20/2020 for further evaluation. On today's evaluation the patient remains on 15 L of oxygen by nasal cannula. Laboratory markers show a LDH of 1482, her CRP is 239, her pro-calcitonin level is at 1.28, her white cell count is at 4.5 and the patient has a lymphopenia with a lymphocyte count of 0.7. The electrolytes all within normal limits. Renal function is within normal limits. Glucose slightly elevated at 235. The chest x-ray is showing bilateral pulmonary infiltrates mainly involving the left lung and or significantly in the right upper lobe area. The patient is known to have COPD/asthma. The patient is also has history of hypothyroidism, hyperlipidemia and gout. She has history of hiatal hernia.. She is on Decadron 6 mg by mouth daily. She is on no DVT prophylaxis is receiving 40 mg of Lovenox her d-dimer level is at 0.36. Review of Systems Constitutional: Reports fatigue, Reports fever, Reports weakness Eyes: denies as per HPI, denies blurred vision, denies bulging eye, denies decreased vision, denies diplopia, denies discharge, denies dry eye, denies irritation, denies itching, denies pain, denies photophobia, denies loss of peripheral vision, denies loss of vision, denies tunnel vision/blind spots Ears: deny: decreased hearing, ear discharge, earache, tinnitus Ears, nose, mouth and throat: Reports as per HPI Breasts: absent: as per HPI, change in shape, gynecomastia, masses, nipple discharge, pain, skin changes, swelling Cardiovascular: Reports decreased exercise tolerance, Reports dyspnea on exertion Respiratory: Reports dyspnea Gastrointestinal: Reports as per HPI Genitourinary: Reports as per HPI Menstruation: Reports as per HPI Musculoskeletal: Reports as per HPI Musculoskeletal: absent: ankle pain, ankle stiffness, ankle swelling Integumentary: Reports as per HPI Neurological: Reports as per HPI, Reports paresthesias Psychiatric: Reports as per HPI Endocrine: Reports as per HPI Hematologic/Lymphatic: Reports as per HPI Allergic/Immunologic: Reports as per HPI Past Medical History Past Medical History: Asthma, COPD, GERD/Reflux, Hyperlipidemia, Osteoarthritis (OA), Pneumonia, Thyroid Disorder, Vascular Disorder Additional Past Medical History / Comment(s): Pt recently admitted to [facility] on 07/22/19 with R calf infection/cellulitis/possible abscess with sepsis/random elevated blood sugar. Other hx: Bronchitis, arthritis in multiple joints, gout in several joints, DJD, neuropathy bilateral feet, fluid retention, PVD, hypothyroid, hypoglycemia, hypokalemia, normocytic anemia. ex smoker- smoked 2ppd for 18 years History of Any Multi-Drug Resistant Organisms: None Reported Past Surgical History: Adenoidectomy, Section, Hysterectomy, Orthopedic Surgery, Tonsillectomy Additional Past Surgical History / Comment(s): L knee arthroscopy, R hand tendon repair, bilateral carpal tunnel releases, EGDs, colonoscopy, hemorrhoidectomy, varicose vein stripping and pt states a larger vein was "closed". Past Anesthesia/Blood Transfusion Reactions: Motion Sickness, Postoperative Nausea & Vomiting (PONV) Past Psychological History: No Psychological Hx Reported Additional Psychological History / Comment(s): Pt resides with her spouse. She uses no assistive device. Pt drives. Smoking Status: Former smoker Past Alcohol Use History: None Reported Additional Past Alcohol Use History / Comment(s): QUIT SMOKING IN 2006, STARTED SMOKING AGE 13- SMOKED 2PPD Past Drug Use History: None Reported - Past Family History Father Family Medical History: Cancer Additional Family Medical History / Comment(s): LUNG CANCER Mother Family Medical History: Cancer Additional Family Medical History / Comment(s): BLADDER CANCER Medications and Allergies Home Medications Medication Instructions Recorded Confirmed Type Allopurinol [Zyloprim] 600 mg PO QAM 04/13/15 11/20/20 History Budesonide/Formoterol Fumarate 2 puff INHALATION RT-BID 04/13/15 11/20/20 History [Symbicort 160-4.5 Mcg Inhaler] Colchicine [Colcrys] 0.6 mg PO DAILY 04/13/15 11/20/20 History Furosemide [Lasix] 40 mg PO BID 04/13/15 11/20/20 History Gabapentin [Neurontin] 300 mg PO HS 04/13/15 11/20/20 History Meloxicam [Mobic] 15 mg PO QAM 04/13/15 11/20/20 History Montelukast Sodium [Singulair] 10 mg PO HS 04/13/15 11/20/20 History Omeprazole [PriLOSEC] 20 mg PO BID 04/13/15 11/20/20 History Sucralfate [Carafate] 1 gm PO QID 04/13/15 11/20/20 History Theophylline 12 Hour [Ishan-Dur] 300 mg PO BID 04/13/15 11/20/20 History Pramipexole [Mirapex] 0.5 mg PO HS 07/20/18 11/20/20 History Levalbuterol Hfa Inhaler [Xopenex 4 puff INHALATION RT-Q6H PRN 07/22/19 11/20/20 History Hfa Inhaler] Gabapentin [Neurontin] 100 mg PO BID@0800,1200 07/27/19 11/20/20 History Effer-K 25meq 25 meq PO QID 11/20/20 11/20/20 History Ergocalciferol (Vitamin D2) 1,250 mcg PO Q14D 11/20/20 11/20/20 History [Vitamin D2 (50,000 units)] Ipratropium-Albuterol Nebulize 3 ml INHALATION RT-QID 11/20/20 11/20/20 History [Duoneb 0.5 mg-3 mg/3 ml Soln] Levothyroxine Sodium [Euthyrox] 75 mcg PO DAILY 11/20/20 11/20/20 History Loratadine [Claritin] 10 mg PO DAILY 11/20/20 11/20/20 History Simvastatin [Zocor] 80 mg PO HS 11/20/20 11/20/20 History Allergies Allergy/AdvReac Type Severity Reaction Status Date / Time milk Allergy Dyspnea,swe Verified 11/20/20 09:03 lling aspirin AdvReac Abdominal Verified 11/20/20 09:03 Pain, headache Physical Exam Vitals: Vital Signs Temp Pulse Pulse Resp BP BP Pulse Ox 11/21/20 08:00 97.9 F 77 28 H 109/56 89 L 11/21/20 04:00 97.9 F 78 20 112/59 89 L 11/21/20 00:00 77 20 117/62 92 L 11/20/20 20:00 70 22 104/51 91 L 11/20/20 16:35 18 95 11/20/20 16:30 98.2 F 70 18 102/60 77 L 11/20/20 14:20 93 L 11/20/20 13:42 75 18 92 L 11/20/20 13:41 75 18 11/20/20 11:30 99.1 F 75 18 99/58 93 L 11/20/20 11:00 98.9 F 86 18 100/59 99 Intake and Output 11/20/20 11/21/20 11/21/20 22:59 06:59 14:59 Intake Total 220 20 125 Balance 220 20 125 Intake: IV 20 20 Invasive Line 1 10 10 Invasive Line 2 10 10 Oral 200 125 Other: # Voids 2 1 Weight 75.6 kg GENERAL: The patient is alert and oriented x3, not in any acute distress. Well developed, well nourished. HEENT: Pupils are round and equally reacting to light. EOMI. No scleral icterus. No conjunctival pallor. Normocephalic, atraumatic. No pharyngeal erythema. No thyromegaly. CARDIOVASCULAR: S1 and S2 present. No murmurs, rubs, or gallops. PULMONARY: Diffuse bilateral rhonchi without any significant wheezing fairly good air entry into bilateral lung ruiz , the crackles are somewhat coarse in the lung bases bilaterally. ABDOMEN: Soft, nontender, nondistended, normoactive bowel sounds. No palpable organomegaly. MUSCULOSKELETAL: No joint swelling or deformity. EXTREMITIES: No cyanosis, clubbing, patient does have some pedal edema NEUROLOGICAL: Gross neurological examination did not reveal any focal deficits. SKIN: No rashes. Results - Laboratory Findings CBC and BMP: 11/20/20 14:57 11/20/20 14:57 PT/INR, D-dimer D-Dimer 0.36 mg/L FEU (<0.60) 11/20/20 14:57 Abnormal lab findings: Abnormal Labs 01/18/21 01/18/21 01/18/21 09:10 14:57 14:57 RBC 3.71 L Hgb 10.8 L Hct 32.1 L Lymphocytes # 0.7 L Sodium 134 L Potassium 3.1 L BUN 23 H Glucose 234 H Calcium 7.9 L Ferritin 1480.9 H AST 69 H ALT 37 H Lactate Dehydrogenase 1482 H Creatine Kinase 1120 H* C-Reactive Protein 239.5 H Total Protein 5.6 L Albumin 3.1 L Procalcitonin Coronavirus (PCR) Detected A 11/20/20 14:57 RBC Hgb Hct Lymphocytes # Sodium Potassium BUN Glucose Calcium Ferritin AST ALT Lactate Dehydrogenase Creatine Kinase C-Reactive Protein Total Protein Albumin Procalcitonin 1.28 H Coronavirus (PCR) - Diagnostic Findings Chest x-ray: image reviewed Assessment and Plan Plan: 1 acute Covid 19 related pneumonia with bilateral pulmonary infiltrates most significant in the right upper lobe and the left lung seems to be diffusely infiltrated 2 acute hypoxic respiratory failure currently on 15 L of oxygen by nasal cannula 3 chronic persistent bronchial asthma with an FEV1 of 82-87% on outpatient basis maintained on Symbicort 4 steroid-induced hyperglycemia 5 hypertension 6 hypothyroidism 7 Osteoarthritis and gout 8 Peripheral neuropathy involving lower extremities 9 Peripheral vascular disease 10 Chronic normocytic anemia 11 More than [id number] smoking history patient is currently an ex-smoker hiatal hernia with reflux Plan The patient was tried on BiPAP and she failed and she was unable to tolerate. I would suggest high flow oxygen Airvo then. We're going to maintain a saturation above 90%. Increase the Decadron to 20 mg IV for the next 5 days and drop it down to 6 mg. The patient has been progressing very fast and she has coarse crackles in the lung bases bilaterally Initiate the patient on Remdesivir per protocol Lovenox for DVT prophylaxis 40 mg subcu Monitor inflammatory markers Monitor d-dimer Utilizing a combination of zinc, vitamin C, vitamin D, melatonin and Pepcid Monitor oxygenation and repeat the chest x-ray with the next 24 hours May transfer to the intensive care unit if there is any further decompensation in her respiratory status.
[2020-11-21 11:50] LABS: Glucose,Whole Blood 121 mg/dL (75-99)
[2020-11-21] MEDS ORDERED: REMDESIVIR 200 MG in SODIUM CHLORIDE 0.9% 250 ML IVPB ONE (12:00)
[2020-11-21 13:46] LABS: Glucose,Whole Blood 139 mg/dL (75-99)
[2020-11-21] MEDS: SODIUM CHLORIDE 0.9% 1,000 ML IV SCH (18:20)
[2020-11-21] MEDS: FAMOTIDINE 20 MG/2 ML VIAL IV SCH (21:50)
[2020-11-21] MEDS: FUROSEMIDE 40 MG TAB PO SCH (21:50)
[2020-11-21] MEDS: MONTELUKAST 10 MG TAB PO SCH (21:50)
[2020-11-21] MEDS: PRAMIPEXOLE 0.5 MG TAB PO SCH (21:51)
[2020-11-21] MEDS: ATORVASTATIN 40 MG TAB PO SCH (21:51)
[2020-11-21] MEDS: THEOPHYLLINE 24 HOUR 300 MG CAP.ER.24H PO SCH (21:51)
[2020-11-21] MEDS: GABAPENTIN 300 MG CAP PO SCH (21:51)
[2020-11-22 04:21] LABS: Basophils % (A) 0 %; Eosinophils % (A) 0 %; HCT 33.8 % (34.0-46.0); Lymphocytes # (A) 0.5 k/uL (1.0-4.8); Lymphocytes % (A) 5 %; MCH 29.1 pg (25.0-35.0); MCHC 32.6 g/dL (31.0-37.0); MCV 89.4 fL (80.0-100.0); Mean Platelet Volume 7.8; Monocytes # (A) 0.3 k/uL (0-1.0); Monocytes % (A) 3 %; Neutrophils # (A) 8.3 k/uL (1.3-7.7); Neutrophils % (A) 91 %; Platelet Count 322 k/uL (150-450); RBC 3.78 m/uL (3.80-5.40); RDW 14.7 % (11.5-15.5); WBC 9.2 k/uL (3.8-10.6)
[2020-11-22 04:34] LABS: ALT 35 U/L (4-34); AST 62 U/L (14-36); African American GFR (CKD) >90 (>60 ml/min/1.73 sqM); Albumin 3.1 g/dL (3.5-5.0); Alkaline Phosphatase 64 U/L (38-126); Anion Gap 5 mmol/L; Blood Urea Nitrogen 22 mg/dL (7-17); Calcium 8.8 mg/dL (8.4-10.2); Carbon Dioxide 30 mmol/L (22-30); Chloride 105 mmol/L (98-107); Creatine Kinase 589 U/L (30-135); Glucose 121 mg/dL (74-99); LDH 1940 U/L (313-618); Non-African American GFR(CKD) >90 (>60 ml/min/1.73 sqM); Potassium 4.5 mmol/L (3.5-5.1); Sodium 140 mmol/L (137-145); Total Bilirubin 0.5 mg/dL (0.2-1.3); Total Protein 5.7 g/dL (6.3-8.2)
[2020-11-22 04:48] LABS: C Reactive Protein 143.6 mg/L (<10.0)
[2020-11-22] MEDS: LEVOTHYROXINE 75 MCG TAB PO SCH (05:04)
[2020-11-22] MEDS: ACETAMINOPHEN TAB 325 MG TAB PO PRN (05:05)
[2020-11-22] MEDS: ALBUTEROL HFA INHALER INHALATION SCH ×4 (07:33→19:34)
[2020-11-22] MEDS: TIOTROPIUM 2.5 MCG INHALER INHALATION SCH (07:34)
[2020-11-22] MEDS: SYMBICORT 160-4.5 MCG INHALER INHALATION SCH ×2 (07:34→19:41)
[2020-11-22] MEDS: ENOXAPARIN 40 MG/0.4 ML SYRINGE SQ SCH (08:38)
[2020-11-22] MEDS: ASCORBIC ACID 500 MG TAB PO SCH (08:38)
[2020-11-22] MEDS: FUROSEMIDE 40 MG TAB PO SCH ×2 (08:38→20:41)
[2020-11-22] MEDS: SUCRALFATE 1 GM TAB PO SCH ×4 (08:38→19:46)
[2020-11-22] MEDS: ZINC SULFATE 220 MG CAP PO SCH (08:38)
[2020-11-22] MEDS: FAMOTIDINE 20 MG/2 ML VIAL IV SCH ×2 (08:38→20:41)
[2020-11-22] MEDS: GABAPENTIN 100 MG CAP PO SCH ×2 (08:38→11:42)
[2020-11-22] MEDS: dexAMETHasone 4 MG TAB PO SCH (08:39)
[2020-11-22] MEDS: COLCHICINE 0.6 MG EACH PO SCH (08:39)
[2020-11-22] MEDS: allopurinoL 300 MG TAB PO SCH (08:40)
[2020-11-22] MEDS ORDERED: TOCILIZUMAB 400 MG in SODIUM CHLORIDE 0.9% 80 ML IV ONE ×2 (09:14→21:00)
--- NOTE | 2020-11-22 09:14 | P.PN ---
Subjective Progress Note Date: 11/22/20 Principal diagnosis: 60-year-old here patient hospitalized for COVID 19 related pneumonia and hypoxemia. The patient was found to have a low oxygen saturation. She was diagnosed having COVID 19 on 11/20/2020. However, her symptoms started approximately a week prior to that as the patient started having generalized weakness, fever and chills. In the hospital at [place], she was found to be hypoxic and she was placed on 15 L of oxygen by nasal cannula. She was started on Decadron and following that she was transferred to [facility] on 11/20/2020 for further evaluation. On today's evaluation the patient remains on 15 L of oxygen by nasal cannula. Laboratory markers show a LDH of 1482, her CRP is 239, her pro-calcitonin level is at 1.28, her white cell count is at 4.5 and the patient has a lymphopenia with a lymphocyte count of 0.7. The electrolytes all within normal limits. Renal function is within normal limits. Glucose slightly elevated at 235. The chest x-ray is showing bilateral pulmonary infiltrates mainly involving the left lung and or significantly in the right upper lobe area. The patient is known to have COPD/asthma. The patient is also has history of hypothyroidism, hyperlipidemia and gout. She has history of hiatal hernia.. She is on Decadron 6 mg by mouth daily. She is on no DVT prophylaxis is receiving 40 mg of Lovenox her d-dimer level is at 0.36. On 11/22/2020 patient seen in follow-up in intensive care unit. She is awake and alert, oriented 3, she is currently on BiPAP support with pressures of 14/5 and FiO2 of 100%, and her SpO2 is a 99%. Patient states she doesn't feel significantly more short of breath, however she tachypneic with a respiratory rate of 28 BPM, she has been febrile T-max of 10 1F, her pro-calcitonin came back elevated at 1.28 suggesting possibility of bacterial infection. Today we started her on Remdesivir, today's date to off treatment, her inflammatory markers are trending up, LDH is up to 1940, CRP is 143.6, d-dimer is 0.78, and is on prophylactic dose of Lovenox 40 mg daily, electrolytes and renal profile are unremarkable. O'Christiano is 9.2, hemoglobin is 11, platelet count is 322, neutrophils is 8.3, and in lymphocyte count is 0.5. Patient is on day 2 of high-dose IV steroids 20 mg daily. Patient is awake and alert, oriented 3, yesterday she reversed her CODE STATUS, from DO NOT RESUSCITATE to full code. Objective - Vital Signs Vital signs: Vital Signs Temp 101 F H 11/22/20 05:00 Pulse 70 11/22/20 08:00 Resp 28 H 11/22/20 08:00 BP 91/57 11/22/20 08:00 Pulse Ox 87 L 11/22/20 08:00 Intake & Output 11/21/20 11/22/20 11/22/20 18:59 06:59 18:59 Intake Total 375 Output Total 660 770 60 Balance -285 -770 -60 Weight 83.3 kg Intake: IV 250 Remdesivir 200 mg In 250 Sodium Chloride 0.9% 250 ml @ 250 mls/hr IVPB ONCE ONE Rx#:[id number] Oral 125 Output: Urine 660 770 60 Other: Voiding Method Indwelling Catheter Indwelling Catheter - Exam GENERAL EXAM: Alert, pleasant, 60-year-old white female on the BiPAP support with pressures of 14 and 5% FiO2 of 100% currently satting 99% and FiO2 has been dropped to 80%, with respiratory rate at 28 comfortable in no apparent distress. HEAD: Normocephalic/atraumatic. EYES: Normal reaction of pupils, equal size. Conjunctiva pink, sclera white. NOSE: Clear with pink turbinates. THROAT: No erythema or exudates. NECK: No masses, no JVD, no thyroid enlargement, no adenopathy. CHEST: No chest wall deformity. Symmetrical expansion. LUNGS: Equal air entry with diffuse crackles CVS: Regular rate and rhythm, normal S1 and S2, no gallops, no murmurs, no rubs ABDOMEN: Soft, nontender. No hepatosplenomegaly, normal bowel sounds, no guarding or rigidity. EXTREMITIES: No clubbing, no edema, no cyanosis, 2+ pulses and upper and lower extremities. MUSCULOSKELETAL: Muscle strength and tone normal. SPINE: No scoliosis or deformity SKIN: No rashes CENTRAL NERVOUS SYSTEM: Alert and oriented -3. No focal deficits, tone is normal in all 4 extremities. PSYCHIATRIC: Alert and oriented -3. Appropriate affect. Intact judgment and insight. - Labs CBC & Chem 7: 11/22/20 03:06 11/22/20 03:06 Labs: Abnormal Lab Results - Last 24 Hours (Table) 11/21/20 11/21/20 11/22/20 Range/Units 11:35 13:44 03:06 RBC (3.80-5.40) m/uL Hgb (11.4-16.0) gm/dL Hct (34.0-46.0) % Neutrophils # (1.3-7.7) k/uL Lymphocytes # (1.0-4.8) k/uL D-Dimer 0.78 H (<0.60) mg/L FEU BUN (7-17) mg/dL Glucose (74-99) mg/dL POC Glucose (mg/dL) 121 H 139 H (75-99) mg/dL AST (14-36) U/L ALT (4-34) U/L Lactate Dehydrogenase (313-618) U/L Creatine Kinase (30-135) U/L C-Reactive Protein (<10.0) mg/L Total Protein (6.3-8.2) g/dL Albumin (3.5-5.0) g/dL 11/22/20 11/22/20 Range/Units 03:06 03:06 RBC 3.78 L (3.80-5.40) m/uL Hgb 11.0 L (11.4-16.0) gm/dL Hct 33.8 L (34.0-46.0) % Neutrophils # 8.3 H (1.3-7.7) k/uL Lymphocytes # 0.5 L (1.0-4.8) k/uL D-Dimer (<0.60) mg/L FEU BUN 22 H (7-17) mg/dL Glucose 121 H (74-99) mg/dL POC Glucose (mg/dL) (75-99) mg/dL AST 62 H (14-36) U/L ALT 35 H (4-34) U/L Lactate Dehydrogenase 1940 H (313-618) U/L Creatine Kinase 589 H (30-135) U/L C-Reactive Protein 143.6 H (<10.0) mg/L Total Protein 5.7 L (6.3-8.2) g/dL Albumin 3.1 L (3.5-5.0) g/dL Assessment and Plan Plan: Assessment: #1. acute Covid 19 related pneumonia with bilateral pulmonary infiltrates most significant in the right upper lobe and the left lung seems to be diffusely infiltrated #2. acute hypoxic respiratory failure, worsening over last 24 hours, patient on FiO2 100%, and BiPAP support, the evidence of worsening inflammatory markers and worsening oxygenation. Started on Remdesivir treatment on 11/21/2020, and high- dose IV Decadron on 11/21/2020. Patient had rapid worsening of oxygenation and was transferred to the intensive care unit on 11/21/2020. Currently requiring BiPAP support with pressures of 14/5 and FiO2 100% #3. Increased pro-calcitonin rule out possibility of bacterial infection, we'll cover the patient with azithromycin and Rocephin, we'll send urinalysis with cultures, we'll send a Legionella urine antigen and mycoplasma IgM and IgG #4. chronic persistent bronchial asthma with an FEV1 of 82-87% on outpatient basis maintained on Symbicort #5. steroid-induced hyperglycemia #6. hypertension #7. hypothyroidism #8. Osteoarthritis and gout #9. Peripheral neuropathy involving lower extremities #10. Peripheral vascular disease #11. Chronic normocytic anemia #12. More than [id number] smoking history patient is currently an ex-smoker hiatal hernia with reflux Plan: We will increase the EPAP to 6, we'll keep the IPAP at 14, FiO2 remains at 90- 100%, wean FiO2 to keep O2 sat at 89-90%. Patient is on day 2 of Remdesivir, remains on day 2 of high-dose IV steroids with dexamethasone 20 mg daily. These labs reviewed showing increasing inflammatory markers, and patient had significant worsening in oxygenation in the last 24 hours. Pro-calcitonin level was elevated, will empirically start the patient on azithromycin and Rocephin, we'll send urinalysis with urine culture, and the Legionella urine antigen and mycoplasma IgM IgG. Continue close monitoring of patient's and oxygenation level. If she is able to come down on FiO2 to 80% and maintained stable satura tions may give the patient a trial on Airvo, may switch back to BiPAP if develops respiratory fatigue. We will try to qualify the patient for Actemra 400 mg 2 doses today. Obtain follow-up inflammatory markers, d-dimer, anticoagulation will be adjusted accordingly on a daily basis. Provide nutriti onal supplements and encourage oral intake to tolerate high flow nasal cannula trials. Prognosis is guarded, patient agreeable to intubation and placement on mechanical ventilator if need be I performed a history & physical examination of the patient and discussed their management with my nurse practitioner, Cate Madsen. I reviewed the nurse practitioner's note and agree with the documented findings and plan of care. Lung sounds are positive for diminished breath sounds and diffused crackles. The findings and the impression was discussed with the patient. I attest to the documentation by the nurse practitioner. Time with Patient: Greater than 30
--- NOTE | 2020-11-22 09:33 | XR ---
EXAMINATION TYPE: XR chest 1V DATE OF EXAM: 11/22/2020 COMPARISON: 11/20/2020 INDICATION: Covid TECHNIQUE: Single frontal view of the chest is obtained. FINDINGS: The heart size is mildly prominent. The pulmonary vasculature is normal. Patchy infiltrates are present bilaterally. Slightly progressive from comparison IMPRESSION: 1. Slight worsening of patchy infiltrates bilaterally. Findings can BE compatible with atypical pneum onia.
[2020-11-22] MEDS: AZITHROMYCIN 500 MG TAB PO SCH (09:41)
[2020-11-22 10:40] LABS: Ferritin 1436.9 ng/mL (10.0-291.0)
[2020-11-22] MEDS: REMDESIVIR 100 MG in SODIUM CHLORIDE 0.9% 250 ML IVPB SCH (11:42)
[2020-11-22 12:20] LABS: Appearance,Urine Clear (Clear); Bacteria,Urine Few /hpf; Bilirubin,Urine Negative (Negative); Blood,Urine Moderate (Negative); Color,Urine Yellow; Glucose,Urine (UA) Negative (Negative); Ketones,Urine Negative (Negative); Leukocyte Esterase,Urine Negative (Negative); Mucus,Urine Rare /hpf; Nitrite,Urine Negative (Negative); Protein,Urine 1+ (Negative); RBC,Urine 18 /hpf (0-5); Specific Gravity,Urine 1.017 (1.001-1.035); Squamous Epithelial Cell,Urine <1 /hpf (0-4); Urobilinogen,Urine <2.0 mg/dL (<2.0); WBC,Urine 1 /hpf (0-5)
[2020-11-22] MEDS: SODIUM CHLORIDE 0.9% 1,000 ML IV SCH (17:11)
[2020-11-22] MEDS: GABAPENTIN 300 MG CAP PO SCH (20:41)
[2020-11-22] MEDS: ATORVASTATIN 40 MG TAB PO SCH (20:41)
[2020-11-22] MEDS: THEOPHYLLINE 24 HOUR 300 MG CAP.ER.24H PO SCH (20:41)
[2020-11-22] MEDS: PRAMIPEXOLE 0.5 MG TAB PO SCH (20:41)
[2020-11-22] MEDS: MONTELUKAST 10 MG TAB PO SCH (20:41)
--- NOTE | 2020-11-22 21:27 | P.PN ---
Subjective Progress Note Date: 11/22/20 Principal diagnosis: Acute hypoxic respiratory failure: Secondary to Covid 19 pneumonia 60-year-old female came in with compensative shortness of breath found to have very low oxygen saturations patient was diagnosed with Covid 19 about 3 days ago patient had having symptoms for about a week. Patient was also company of fever chills patient has low-grade fever here. Patient was seen in [facility] subsequently transferred here patient is presently on 15 L of oxygen. Patient does have history of COPD. Patient was started on Decadron. Pulmonary was consulted. She was complaining of for cough without any significant sputum production. 11/21/2020 Patient doesn't feel any better patient remains on 15 L of oxygen along with Ventimask. Breasts will be replaced patient has highly elevated inflammatory markers although d-dimer is 0.36 pulmonology will evaluate the patient to evaluate for the need for Remdesivir. 11/22/2020 Patient is currently in MICU. Awake alert and oriented x3. On BiPAP with FiO2 100% saturating at 99%. Patient is still short of breath with tachypnea.. Patient was febrile with T-max 101 Laboratory test showed D-dimer level 0.78, ferritin 1436.9, LDH 1940 and CRP 143.6 and CK 589. UA negative for infection. Procalcitonin level is 1.28. Patient is being treated with remdesivir, dexamethasone and Lovenox. On antibiotics of ceftriaxone and azithromycin. Pulmonary is following. Chest x-ray showed slight worsening of patchy infiltrates bilaterally. Findings can be compatible with atypical pneumonia. Constitutional: As mentioned above Cardio vascular: denied any chest pain, palpitations Gastrointestinal denied any nausea vomiting Pulmonary: Still has shortness of breath tiredness and fatigue Neurologic denied any new focal deficits All inpatient medications were reviewed and appropriate changes in these medications as dictated in the interval history and assessment and plan. Objective - Vital Signs Vital signs: Vital Signs Temp 99.6 F 11/22/20 12:00 Pulse 69 11/22/20 14:00 Resp 33 H 11/22/20 14:00 BP 110/60 11/22/20 14:00 Pulse Ox 92 L 11/22/20 14:00 Intake & Output 11/21/20 11/22/20 11/22/20 18:59 06:59 18:59 Intake Total 375 400 Output Total 660 770 795 Balance -703 -770 -358 Weight 83.3 kg Intake: IV 250 400 Remdesivir 100 mg In 250 Sodium Chloride 0.9% 250 ml @ 250 mls/hr IVPB DAILY@1200 [facility] Rx#: [id number] Remdesivir 200 mg In 250 Sodium Chloride 0.9% 250 ml @ 250 mls/hr IVPB ONCE ONE Rx#:[id number] Sodium Chloride 0.9% 1, 100 000 ml @ 20 mls/hr IV . Q24H [facility] Rx#:[id number] cefTRIAXone 1 gm In 50 Sodium Chloride 0.9% 50 ml @ 100 mls/hr IVPB Q24HR [facility] Rx#:[id number] Oral 125 Output: Urine 660 770 795 Other: Voiding Method Indwelling Catheter Indwelling Catheter Indwelling Catheter - Exam PHYSICAL EXAMINATION: GENERAL: The patient is alert and oriented x3, not in any acute distress. Well developed, well nourished. HEENT: Pupils are round and equally reacting to light. EOMI. No scleral icterus. No conjunctival pallor. Normocephalic, atraumatic. No pharyngeal erythema. No thyromegaly. CARDIOVASCULAR: S1 and S2 present. No murmurs, rubs, or gallops. PULMONARY: Diffuse bilateral rhonchi without any significant wheezing fairly good air entry into bilateral lung ruiz ABDOMEN: Soft, nontender, nondistended, normoactive bowel sounds. No palpable organomegaly. MUSCULOSKELETAL: No joint swelling or deformity. EXTREMITIES: No cyanosis, clubbing, patient does have some pedal edema NEUROLOGICAL: Gross neurological examination did not reveal any focal deficits. SKIN: No rashes. - Labs CBC & Chem 7: 11/22/20 03:06 11/22/20 03:06 Labs: Abnormal Lab Results - Last 24 Hours (Table) 11/22/20 11/22/20 11/22/20 Range/Units 03:06 03:06 03:06 RBC 3.78 L (3.80-5.40) m/uL Hgb 11.0 L (11.4-16.0) gm/dL Hct 33.8 L (34.0-46.0) % Neutrophils # 8.3 H (1.3-7.7) k/uL Lymphocytes # 0.5 L (1.0-4.8) k/uL D-Dimer 0.78 H (<0.60) mg/L FEU BUN 22 H (7-17) mg/dL Glucose 121 H (74-99) mg/dL Ferritin 1436.9 H (10.0-291.0) ng/mL AST 62 H (14-36) U/L ALT 35 H (4-34) U/L Lactate Dehydrogenase 1940 H (313-618) U/L Creatine Kinase 589 H (30-135) U/L C-Reactive Protein 143.6 H (<10.0) mg/L Total Protein 5.7 L (6.3-8.2) g/dL Albumin 3.1 L (3.5-5.0) g/dL Urine Protein (Negative) Urine Blood (Negative) Urine RBC (0-5) /hpf Urine Bacteria (None) /hpf Urine Mucus (None) /hpf 11/22/20 Range/Units 12:00 RBC (3.80-5.40) m/uL Hgb (11.4-16.0) gm/dL Hct (34.0-46.0) % Neutrophils # (1.3-7.7) k/uL Lymphocytes # (1.0-4.8) k/uL D-Dimer (<0.60) mg/L FEU BUN (7-17) mg/dL Glucose (74-99) mg/dL Ferritin (10.0-291.0) ng/mL AST (14-36) U/L ALT (4-34) U/L Lactate Dehydrogenase (313-618) U/L Creatine Kinase (30-135) U/L C-Reactive Protein (<10.0) mg/L Total Protein (6.3-8.2) g/dL Albumin (3.5-5.0) g/dL Urine Protein 1+ H (Negative) Urine Blood Moderate H (Negative) Urine RBC 18 H (0-5) /hpf Urine Bacteria Few H (None) /hpf Urine Mucus Rare H (None) /hpf Assessment and Plan Assessment: -Acute hypoxic respiratory failure: Requiring BiPAP.. Secondary to Covid 19 pneumonia patient was started on Decadron started on the GI prophylaxis as well as Lovenox for DVT prophylaxis. Started on remdesivir. -COPD with mild acute exacerbation secondary to Covid 19. Pulmonology was consulted -Hyperlipidemia -Hypothyroidism -History of gout for which she'll patient is on colchicine which will be continued -Peripheral edema: Due to probably chronic venous stasis and patient will be resumed on Lasix oral. -Hiatal hernia with gastroesophageal reflux disease patient was resumed on Prilosec CODE STATUS DO NOT RESUSCITATE Time with Patient: Greater than 30
[2020-11-23 04:22] LABS: Basophils % (A) 0 %; Eosinophils % (A) 0 %; HCT 33.3 % (34.0-46.0); HGB 10.5 gm/dL (11.4-16.0); Hypochromasia Slight; Lymphocytes # (A) 0.5 k/uL (1.0-4.8); Lymphocytes % (A) 8 %; MCH 28.6 pg (25.0-35.0); MCHC 31.5 g/dL (31.0-37.0); MCV 90.9 fL (80.0-100.0); Mean Platelet Volume 7.3; Monocytes # (A) 0.2 k/uL (0-1.0); Monocytes % (A) 3 %; Neutrophils # (A) 5.6 k/uL (1.3-7.7); Neutrophils % (A) 87 %; Platelet Count 373 k/uL (150-450); RBC 3.66 m/uL (3.80-5.40); RDW 15.1 % (11.5-15.5); WBC 6.5 k/uL (3.8-10.6)
[2020-11-23 05:11] LABS: African American GFR (CKD) >90 (>60 ml/min/1.73 sqM); Anion Gap 5 mmol/L; Blood Urea Nitrogen 30 mg/dL (7-17); Calcium 8.6 mg/dL (8.4-10.2); Carbon Dioxide 30 mmol/L (22-30); Chloride 103 mmol/L (98-107); Glucose 142 mg/dL (74-99); LDH 1670 U/L (313-618); Non-African American GFR(CKD) 90 (>60 ml/min/1.73 sqM); Potassium 3.8 mmol/L (3.5-5.1); Sodium 138 mmol/L (137-145)
[2020-11-23 05:37] LABS: C Reactive Protein 140.5 mg/L (<10.0)
[2020-11-23] MEDS ORDERED: POTASSIUM CHLORIDE ER 20 MEQ TAB.ER PO STA (05:47)
[2020-11-23] MEDS: LEVOTHYROXINE 75 MCG TAB PO SCH (06:05)
[2020-11-23] MEDS: COLCHICINE 0.6 MG EACH PO SCH (07:48)
[2020-11-23] MEDS: ENOXAPARIN 40 MG/0.4 ML SYRINGE SQ SCH ×3 (07:48→19:52)
[2020-11-23] MEDS: ZINC SULFATE 220 MG CAP PO SCH (07:49)
[2020-11-23] MEDS: GABAPENTIN 100 MG CAP PO SCH ×2 (07:49→11:40)
[2020-11-23] MEDS: FUROSEMIDE 40 MG TAB PO SCH (07:49)
[2020-11-23] MEDS: AZITHROMYCIN 500 MG TAB PO SCH (07:50)
[2020-11-23] MEDS: ASCORBIC ACID 500 MG TAB PO SCH (07:50)
[2020-11-23] MEDS: dexAMETHasone 4 MG TAB PO SCH (07:51)
[2020-11-23] MEDS: FAMOTIDINE 20 MG/2 ML VIAL IV SCH ×2 (07:51→19:52)
[2020-11-23] MEDS: SUCRALFATE 1 GM TAB PO SCH ×4 (07:52→20:18)
[2020-11-23] MEDS: allopurinoL 300 MG TAB PO SCH (07:52)
[2020-11-23] MEDS: ALBUTEROL HFA INHALER INHALATION SCH ×4 (07:58→19:41)
[2020-11-23] MEDS: SYMBICORT 160-4.5 MCG INHALER INHALATION SCH ×2 (07:59→19:41)
[2020-11-23] MEDS: TIOTROPIUM 2.5 MCG INHALER INHALATION SCH (07:59)
--- NOTE | 2020-11-23 07:59 | XR ---
EXAMINATION TYPE: XR chest 1V portable DATE OF EXAM: 11/23/2020 COMPARISON: 11/22/2020 INDICATION: BiPAP dependence difficulty breathing TECHNIQUE: Single frontal view of the chest is obtained. FINDINGS: The heart size is normal. The pulmonary vasculature is indistinct. Diffuse groundglass opacities throughout bilateral lung ruiz. Findings are worsening. Correlate for pulmonary edema and ARDS IMPRESSION: 1. Diffuse increasing groundglass opacities. Correlate for pulmonary edema and ARDS. Atypical pneumon ia is within the differential
--- NOTE | 2020-11-23 09:00 | P.PN ---
Subjective Progress Note Date: 11/23/20 Principal diagnosis: 60-year-old here patient hospitalized for COVID 19 related pneumonia and hypoxemia. The patient was found to have a low oxygen saturation. She was diagnosed having COVID 19 on 11/20/2020. However, her symptoms started approximately a week prior to that as the patient started having generalized weakness, fever and chills. In the hospital at [place], she was found to be hypoxic and she was placed on 15 L of oxygen by nasal cannula. She was started on Decadron and following that she was transferred to [facility] on 11/20/2020 for further evaluation. On today's evaluation the patient remains on 15 L of oxygen by nasal cannula. Laboratory markers show a LDH of 1482, her CRP is 239, her pro-calcitonin level is at 1.28, her white cell count is at 4.5 and the patient has a lymphopenia with a lymphocyte count of 0.7. The electrolytes all within normal limits. Renal function is within normal limits. Glucose slightly elevated at 235. The chest x-ray is showing bilateral pulmonary infiltrates mainly involving the left lung and or significantly in the right upper lobe area. The patient is known to have COPD/asthma. The patient is also has history of hypothyroidism, hyperlipidemia and gout. She has history of hiatal hernia.. She is on Decadron 6 mg by mouth daily. She is on no DVT prophylaxis is receiving 40 mg of Lovenox her d-dimer level is at 0.36. On 11/22/2020 patient seen in follow-up in intensive care unit. She is awake and alert, oriented 3, she is currently on BiPAP support with pressures of 14/5 and FiO2 of 100%, and her SpO2 is a 99%. Patient states she doesn't feel significantly more short of breath, however she tachypneic with a respiratory rate of 28 BPM, she has been febrile T-max of 10 1F, her pro-calcitonin came back elevated at 1.28 suggesting possibility of bacterial infection. Today we started her on Remdesivir, today's date to off treatment, her inflammatory markers are trending up, LDH is up to 1940, CRP is 143.6, d-dimer is 0.78, and is on prophylactic dose of Lovenox 40 mg daily, electrolytes and renal profile are unremarkable. O'Christiano is 9.2, hemoglobin is 11, platelet count is 322, neutrophils is 8.3, and in lymphocyte count is 0.5. Patient is on day 2 of high-dose IV steroids 20 mg daily. Patient is awake and alert, oriented 3, yesterday she reversed her CODE STATUS, from DO NOT RESUSCITATE to full code. On 11/23/2020 patient seen in follow-up in the intensive care unit, she remains on BiPAP support, has been very much dependent on it, and he desaturates rapidly even for short periods when the BiPAP mask is removed to give the patient oral medications, current BiPAP settings of 14/60 and FiO2 of 100%, her pulse ox is 93%. Awake and alert, she is oriented 3, she states her breathing is stable as long as she does not move and lays very still in bed. She is complaining of a dry cough, no chest discomfort, no palpitations. She is in sinus mechanism, bradycardic with a rate of 55 BPM, blood pressure is 116/66, not on any vasopressor support, her current IV fluids are 0.9 normal saline at a rate of 20 ML per hour. Patient's pattern has improved, T-max in last 24 hours 99.5F. Urinalysis was sent and shows no signs of infection, blood cultures will be sent today, last pro calcitonin yesterday was 1.29, repeat pro calcitonin has been sent and pending at this time, patient was empirically placed on azithromycin and Rocephin. Maintenance on high-dose IV steroids currently with Decadron 20 mg IV on the daily basis. Absent been reviewed, her d-dimer has trended up, and is at 5.13 today, her Lovenox dose will be adjusted 0.5 mg/kg of body weight twice daily, LDH is down slightly, 1670, CRP is relatively stable at 140.5. Electronic are within normal limits, patient is mildly prerenal, BUN is 30 creatinine 0.74, she also remains on oral dose of Lasix and she has had very limited oral intake. She has only been able to take one or 2 sips of oral liquids and she states things do not taste right. White blood cell count is 6.5, hemoglobin is 10.5. His chest x-ray has been reviewed and diffuse increasing groundglass opacities. I discussed the patient's CODE STATUS with her, and she is agreeable to CPR, intubation, defibrillation, CODE STATUS will be changed to full code Objective - Vital Signs Vital signs: Vital Signs Temp 97.9 F 11/23/20 08:00 Pulse 58 L 11/23/20 08:00 Resp 27 H 11/23/20 08:00 BP 104/59 11/23/20 08:00 Pulse Ox 92 L 11/23/20 08:00 Intake & Output 11/22/20 11/23/20 11/23/20 18:59 06:59 18:59 Intake Total 500 1180 70 Output Total 1065 725 100 Balance -565 455 -30 Weight 83.461 kg Intake: IV 500 220 70 Remdesivir 100 mg In 250 Sodium Chloride 0.9% 250 ml @ 250 mls/hr IVPB DAILY@1200 [facility] Rx#: [id number] Sodium Chloride 0.9% 1, 200 220 20 000 ml @ 20 mls/hr IV . Q24H [facility] Rx#:[id number] cefTRIAXone 1 gm In 50 50 Sodium Chloride 0.9% 50 ml @ 100 mls/hr IVPB Q24HR [facility] Rx#:[id number] Oral 960 Output: Urine 1065 725 100 Other: Voiding Method Indwelling Catheter Indwelling Catheter - Exam GENERAL EXAM: Alert, pleasant, 60-year-old white female on the BiPAP support with pressures of 14 and 6% FiO2 of 100% currently satting 95% and FiO2 has been dropped to 80%, with respiratory rate at 28 comfortable in no apparent distress. HEAD: Normocephalic/atraumatic. EYES: Normal reaction of pupils, equal size. Conjunctiva pink, sclera white. NOSE: Clear with pink turbinates. THROAT: No erythema or exudates. NECK: No masses, no JVD, no thyroid enlargement, no adenopathy. CHEST: No chest wall deformity. Symmetrical expansion. LUNGS: Equal air entry with diffuse crackles CVS: Regular rate and rhythm, normal S1 and S2, no gallops, no murmurs, no rubs ABDOMEN: Soft, nontender. No hepatosplenomegaly, normal bowel sounds, no guarding or rigidity. EXTREMITIES: No clubbing, no edema, no cyanosis, 2+ pulses and upper and lower extremities. MUSCULOSKELETAL: Muscle strength and tone normal. SPINE: No scoliosis or deformity SKIN: No rashes CENTRAL NERVOUS SYSTEM: Alert and oriented -3. No focal deficits, tone is normal in all 4 extremities. PSYCHIATRIC: Alert and oriented -3. Appropriate affect. Intact judgment and insight. - Labs CBC & Chem 7: 11/23/20 03:51 11/23/20 03:51 Labs: Abnormal Lab Results - Last 24 Hours (Table) 11/22/20 11/22/20 11/23/20 Range/Units 03:06 12:00 03:51 RBC 3.66 L (3.80-5.40) m/uL Hgb 10.5 L (11.4-16.0) gm/dL Hct 33.3 L (34.0-46.0) % Lymphocytes # 0.5 L (1.0-4.8) k/uL D-Dimer (<0.60) mg/L FEU BUN (7-17) mg/dL Glucose (74-99) mg/dL Ferritin 1436.9 H (10.0-291.0) ng/mL Lactate Dehydrogenase (313-618) U/L C-Reactive Protein (<10.0) mg/L Urine Protein 1+ H (Negative) Urine Blood Moderate H (Negative) Urine RBC 18 H (0-5) /hpf Urine Bacteria Few H (None) /hpf Urine Mucus Rare H (None) /hpf 11/23/20 11/23/20 Range/Units 03:51 03:51 RBC (3.80-5.40) m/uL Hgb (11.4-16.0) gm/dL Hct (34.0-46.0) % Lymphocytes # (1.0-4.8) k/uL D-Dimer 5.13 H (<0.60) mg/L FEU BUN 30 H (7-17) mg/dL Glucose 142 H (74-99) mg/dL Ferritin (10.0-291.0) ng/mL Lactate Dehydrogenase 1670 H (313-618) U/L C-Reactive Protein 140.5 H (<10.0) mg/L Urine Protein (Negative) Urine Blood (Negative) Urine RBC (0-5) /hpf Urine Bacteria (None) /hpf Urine Mucus (None) /hpf Assessment and Plan Plan: Assessment: #1. acute Covid 19 related pneumonia with bilateral pulmonary infiltrates most significant in the right upper lobe and the left lung seems to be diffusely infiltrated #2. acute severe hypoxic respiratory failure, worsening over last 24 hours, patient on FiO2 100%, and BiPAP support, the evidence of worsening inflammatory markers and worsening oxygenation. Started on Remdesivir treatment on , and high-dose IV Decadron on 11/21/2020. Patient had rapid worsening of oxygenation and was transferred to the intensive care unit on 11/21/2020. Currently requiring BiPAP support with pressures of 14/5 and FiO2 100% On 11/23/2020 is on BiPAP support with FiO2 of 100%, and very much dependent on BiPAP support. #3. Increased pro-calcitonin rule out possibility of bacterial infection, we'll cover the patient with azithromycin and Rocephin, we'll send urinalysis with cultures, we'll send a Legionella urine antigen and mycoplasma IgM and IgG #4. chronic persistent bronchial asthma with an FEV1 of 82-87% on outpatient basis maintained on Symbicort #5. steroid-induced hyperglycemia #6. hypertension #7. hypothyroidism #8. Osteoarthritis and gout #9. Peripheral neuropathy involving lower extremities #10. Peripheral vascular disease #11. Chronic normocytic anemia #12. More than [id number] smoking history patient is currently an ex-smoker hiatal hernia with reflux Plan: Patient on day 3 of Remdesivir treatment, Continue with high-dose IV steroids, awaiting follow-up pro calcitonin, continue empiric antibiotics, urine is without evidence of infection, Legionella urine antigen and mycoplasma results. On the set of blood cultures, continue monitoring febrile pattern, oxygenation pattern, gradually wean FiO2 to keep O2 sat at 90% or better, if able to tolerate FiO2 of 80% we will attempt Airvo support again. His oral intake, may have to consider TPN if oral intake remains poor, we will increase the IV fluids to 50 ML per hour, we'll place the diuretics on hold. We'll continue to closely monitor in the intensive care units, adjust the Lovenox to 40 mg twice daily in view of increasing d-dimer, continue following inflammatory markers and d-dimer on a daily basis. Code status has been revisited with the patient patient is agreeable to resuscitation and placement on life-support if need be changed her CODE STATUS to full code I performed a history & physical examination of the patient and discussed their management with my nurse practitioner, Cate Madsen. I reviewed the nurse practitioner's note and agree with the documented findings and plan of care. Lung sounds are positive for diffuse crackles throughout the lung ruiz. The findings and the impression was discussed with the patient. I attest to the documentation by the nurse practitioner. Time with Patient: Greater than 30
[2020-11-23] MEDS: REMDESIVIR 100 MG in SODIUM CHLORIDE 0.9% 250 ML IVPB SCH (11:40)
[2020-11-23] MEDS: SODIUM CHLORIDE 0.9% 1,000 ML IV SCH (16:36)
[2020-11-23] MEDS ORDERED: TOCILIZUMAB 400 MG in SODIUM CHLORIDE 0.9% 80 ML IV ONE (17:00)
[2020-11-23 17:05] LABS: Glucose,Whole Blood 123 mg/dL (75-99)
[2020-11-23] MEDS: MONTELUKAST 10 MG TAB PO SCH (19:52)
[2020-11-23] MEDS: GABAPENTIN 300 MG CAP PO SCH (19:52)
[2020-11-23] MEDS: ATORVASTATIN 40 MG TAB PO SCH (19:52)
[2020-11-23] MEDS: PRAMIPEXOLE 0.5 MG TAB PO SCH (19:52)
[2020-11-23] MEDS: THEOPHYLLINE 24 HOUR 300 MG CAP.ER.24H PO SCH (19:52)
--- NOTE | 2020-11-24 00:38 | P.PN ---
Subjective Progress Note Date: 11/23/20 Principal diagnosis: Acute hypoxic respiratory failure: Secondary to Covid 19 pneumonia 60-year-old female came in with compensative shortness of breath found to have very low oxygen saturations patient was diagnosed with Covid 19 about 3 days ago patient had having symptoms for about a week. Patient was also company of fever chills patient has low-grade fever here. Patient was seen in [facility] subsequently transferred here patient is presently on 15 L of oxygen. Patient does have history of COPD. Patient was started on Decadron. Pulmonary was consulted. She was complaining of for cough without any significant sputum production. 11/21/2020 Patient doesn't feel any better patient remains on 15 L of oxygen along with Ventimask. Breasts will be replaced patient has highly elevated inflammatory markers although d-dimer is 0.36 pulmonology will evaluate the patient to evaluate for the need for Remdesivir. 11/22/2020 Patient is currently in MICU. Awake alert and oriented x3. On BiPAP with FiO2 100% saturating at 99%. Patient is still short of breath with tachypnea.. Patient was febrile with T-max 101 Laboratory test showed D-dimer level 0.78, ferritin 1436.9, LDH 1940 and CRP 143.6 and CK 589. UA negative for infection. Procalcitonin level is 1.28. Patient is being treated with remdesivir, dexamethasone and Lovenox. On antibiotics of ceftriaxone and azithromycin. Pulmonary is following. Chest x-ray showed slight worsening of patchy infiltrates bilaterally. Findings can be compatible with atypical pneumonia. 11/23/2020 Patient is currently in the MICU. Awake alert and oriented. On BiPAP support. Denied any chest pain. Cough and shortness of breath. Mainly dry cough. Afebrile. Patient is being continued dexamethasone 6 mg daily and remdesivir course. On anticoagulation. Chest x-ray showed diffuse increasing groundglass opacities. Correlate for pulmonary edema and ARDS. Atypical pneumonia is within differential. Patient was also started ceftriaxone and azithromycin for possible bacterial pneumonia underlying with elevated procalcitonin level. Pulmonary is on board. Constitutional: As mentioned above Cardio vascular: denied any chest pain, palpitations Gastrointestinal denied any nausea vomiting Pulmonary: Still has shortness of breath tiredness and fatigue Neurologic denied any new focal deficits All inpatient medications were reviewed and appropriate changes in these medications as dictated in the interval history and assessment and plan. Objective - Vital Signs Vital signs: Vital Signs Temp 98.3 F 11/23/20 12:00 Pulse 48 L 11/23/20 19:00 Resp 25 H 11/23/20 19:00 BP 110/56 11/23/20 19:00 Pulse Ox 98 11/23/20 19:00 Intake & Output 11/23/20 11/23/20 11/24/20 06:59 18:59 06:59 Intake Total 1180 670 50 Output Total 725 740 40 Balance 455 -70 10 Weight 83.461 kg Intake: IV 220 570 50 Sodium Chloride 0.9% 1, 220 520 50 000 ml @ 50 mls/hr IV . Q20H [facility] Rx#:[id number] cefTRIAXone 1 gm In 50 Sodium Chloride 0.9% 50 ml @ 100 mls/hr IVPB Q24HR [facility] Rx#:[id number] Intake, IV Titration 100 Amount Tocilizumab 400 mg In 100 Sodium Chloride 0.9% 80 ml @ 100 mls/hr IV ONCE ONE Rx#:[id number] Oral 960 Output: Urine 725 740 40 Other: Voiding Method Indwelling Catheter Indwelling Catheter # Bowel Movements 1 - Exam PHYSICAL EXAMINATION: GENERAL: The patient is alert and oriented x3, not in any acute distress. Well developed, well nourished. HEENT: Pupils are round and equally reacting to light. EOMI. No scleral icterus. No conjunctival pallor. Normocephalic, atraumatic. No pharyngeal erythema. No thyromegaly. CARDIOVASCULAR: S1 and S2 present. No murmurs, rubs, or gallops. PULMONARY: Diffuse bilateral rhonchi without any significant wheezing fairly good air entry into bilateral lung ruiz ABDOMEN: Soft, nontender, nondistended, normoactive bowel sounds. No palpable organomegaly. MUSCULOSKELETAL: No joint swelling or deformity. EXTREMITIES: No cyanosis, clubbing, patient does have some pedal edema NEUROLOGICAL: Gross neurological examination did not reveal any focal deficits. SKIN: No rashes. - Labs CBC & Chem 7: 11/23/20 03:51 11/23/20 03:51 Labs: Abnormal Lab Results - Last 24 Hours (Table) 11/23/20 11/23/20 11/23/20 Range/Units 03:51 03:51 03:51 RBC 3.66 L (3.80-5.40) m/uL Hgb 10.5 L (11.4-16.0) gm/dL Hct 33.3 L (34.0-46.0) % Lymphocytes # 0.5 L (1.0-4.8) k/uL D-Dimer (<0.60) mg/L FEU BUN 30 H (7-17) mg/dL Glucose 142 H (74-99) mg/dL POC Glucose (mg/dL) (75-99) mg/dL Lactate Dehydrogenase 1670 H (313-618) U/L C-Reactive Protein 140.5 H (<10.0) mg/L Procalcitonin 0.18 H (0.02-0.09) ng/mL 11/23/20 11/23/20 Range/Units 03:51 17:03 RBC (3.80-5.40) m/uL Hgb (11.4-16.0) gm/dL Hct (34.0-46.0) % Lymphocytes # (1.0-4.8) k/uL D-Dimer 5.13 H (<0.60) mg/L FEU BUN (7-17) mg/dL Glucose (74-99) mg/dL POC Glucose (mg/dL) 123 H (75-99) mg/dL Lactate Dehydrogenase (313-618) U/L C-Reactive Protein (<10.0) mg/L Procalcitonin (0.02-0.09) ng/mL Assessment and Plan Assessment: -Acute hypoxic respiratory failure: Requiring BiPAP.. Secondary to Covid 19 pneumonia patient was started on Decadron started on the GI prophylaxis as well as Lovenox for DVT prophylaxis. Started on remdesivir. -COPD with mild acute exacerbation secondary to Covid 19. Pulmonology was consulted -Hyperlipidemia -Hypothyroidism -History of gout for which she'll patient is on colchicine which will be continued -Peripheral edema: Due to probably chronic venous stasis and patient will be resumed on Lasix oral. -Hiatal hernia with gastroesophageal reflux disease patient was resumed on Prilosec CODE STATUS DO NOT RESUSCITATE Time with Patient: Greater than 30
[2020-11-24 04:49] LABS: Basophils % (A) 0 %; Eosinophils % (A) 0 %; HCT 29.8 % (34.0-46.0); HGB 9.8 gm/dL (11.4-16.0); Lymphocytes # (A) 0.7 k/uL (1.0-4.8); Lymphocytes % (A) 10 %; MCH 28.9 pg (25.0-35.0); MCHC 32.9 g/dL (31.0-37.0); MCV 87.8 fL (80.0-100.0); Mean Platelet Volume 7.4; Monocytes # (A) 0.3 k/uL (0-1.0); Monocytes % (A) 5 %; Neutrophils # (A) 5.4 k/uL (1.3-7.7); Neutrophils % (A) 83 %; Platelet Count 336 k/uL (150-450); RDW 14.7 % (11.5-15.5); WBC 6.5 k/uL (3.8-10.6)
[2020-11-24] MEDS ORDERED: TOCILIZUMAB 400 MG in SODIUM CHLORIDE 0.9% 80 ML IV ONE (05:00)
[2020-11-24 05:17] LABS: African American GFR (CKD) >90 (>60 ml/min/1.73 sqM); Anion Gap 2 mmol/L; Blood Urea Nitrogen 26 mg/dL (7-17); C Reactive Protein 59.6 mg/L (<10.0); Calcium 8.6 mg/dL (8.4-10.2); Carbon Dioxide 29 mmol/L (22-30); Chloride 103 mmol/L (98-107); Glucose 140 mg/dL (74-99); LDH 1641 U/L (313-618); Non-African American GFR(CKD) >90 (>60 ml/min/1.73 sqM); Potassium 3.5 mmol/L (3.5-5.1); Sodium 134 mmol/L (137-145)
[2020-11-24] MEDS ORDERED: Potassium Replacement Protocol 1 EACH MISC MISCELLANE PRN (05:34)
[2020-11-24 05:35] LABS: Mycoplasma IgG Antibody (EIA) 0.89 INDEX (<=0.90); Mycoplasma IgM Antibody 0.14 INDEX (<=0.90)
[2020-11-24] MEDS: POTASSIUM CHLORIDE ER 20 MEQ TAB.ER PO SCH ×2 (05:57→07:02)
[2020-11-24] MEDS: LEVOTHYROXINE 75 MCG TAB PO SCH (05:57)
--- NOTE | 2020-11-24 07:13 | XR ---
EXAMINATION TYPE: XR chest 1V portable DATE OF EXAM: 11/24/2020 COMPARISON: 11/23/2020 HISTORY: Shortness of breath TECHNIQUE: Single frontal view of the chest is obtained. FINDINGS: Heart size stable. Tiny bilateral effusions noted. No sizable pneumothorax. Diffuse bilate ral patchy infiltrates are stable. IMPRESSION: Diffuse bilateral patchy infiltrate stable correlate for atypical or interstitial pneumo rodrigo
[2020-11-24] MEDS: ENOXAPARIN 40 MG/0.4 ML SYRINGE SQ SCH ×2 (07:33→20:19)
[2020-11-24] MEDS: ASCORBIC ACID 500 MG TAB PO SCH (07:34)
[2020-11-24] MEDS: allopurinoL 300 MG TAB PO SCH (07:34)
[2020-11-24] MEDS: dexAMETHasone 4 MG TAB PO SCH (07:34)
[2020-11-24] MEDS: GABAPENTIN 100 MG CAP PO SCH ×2 (07:34→12:20)
[2020-11-24] MEDS: COLCHICINE 0.6 MG EACH PO SCH (07:35)
[2020-11-24] MEDS: ZINC SULFATE 220 MG CAP PO SCH (07:35)
[2020-11-24] MEDS: SUCRALFATE 1 GM TAB PO SCH ×4 (07:35→21:03)
[2020-11-24] MEDS: FAMOTIDINE 20 MG/2 ML VIAL IV SCH ×2 (07:35→20:20)
[2020-11-24] MEDS: ALBUTEROL HFA INHALER INHALATION SCH ×4 (07:50→19:22)
[2020-11-24] MEDS: TIOTROPIUM 2.5 MCG INHALER INHALATION SCH (07:50)
[2020-11-24] MEDS: SYMBICORT 160-4.5 MCG INHALER INHALATION SCH ×2 (07:57→19:23)
[2020-11-24 11:52] LABS: Basophils # (A) 0.1 k/uL (0-0.2); Basophils % (A) 1 %; Eosinophils % (A) 0 %; HCT 33.8 % (34.0-46.0); HGB 11.1 gm/dL (11.4-16.0); Lymphocytes # (A) 0.4 k/uL (1.0-4.8); Lymphocytes % (A) 5 %; MCH 29.1 pg (25.0-35.0); MCHC 32.8 g/dL (31.0-37.0); MCV 88.9 fL (80.0-100.0); Mean Platelet Volume 7.4; Monocytes # (A) 0.3 k/uL (0-1.0); Monocytes % (A) 4 %; Neutrophils # (A) 7.6 k/uL (1.3-7.7); Neutrophils % (A) 88 %; Platelet Count 341 k/uL (150-450); RDW 14.7 % (11.5-15.5); WBC 8.7 k/uL (3.8-10.6)
[2020-11-24 12:07] LABS: Magnesium 2.4 mg/dL (1.6-2.3); Phosphorus 3.2 mg/dL (2.5-4.5)
[2020-11-24 12:14] LABS: ALT 29 U/L (4-34); AST 40 U/L (14-36); African American GFR (CKD) >90 (>60 ml/min/1.73 sqM); Albumin 2.9 g/dL (3.5-5.0); Alkaline Phosphatase 106 U/L (38-126); Anion Gap 4 mmol/L; Blood Urea Nitrogen 25 mg/dL (7-17); Carbon Dioxide 27 mmol/L (22-30); Chloride 105 mmol/L (98-107); Creatine Kinase 136 U/L (30-135); Glucose 121 mg/dL (74-99); Non-African American GFR(CKD) >90 (>60 ml/min/1.73 sqM); Potassium 3.9 mmol/L (3.5-5.1); Sodium 136 mmol/L (137-145); Total Bilirubin 0.5 mg/dL (0.2-1.3); Total Protein 5.4 g/dL (6.3-8.2)
[2020-11-24] MEDS: REMDESIVIR 100 MG in SODIUM CHLORIDE 0.9% 250 ML IVPB SCH (12:21)
--- NOTE | 2020-11-24 13:24 | P.PN ---
Subjective Progress Note Date: 11/24/20 60-year-old here patient hospitalized for COVID 19 related pneumonia and hypoxemia. The patient was found to have a low oxygen saturation. She was diagnosed having COVID 19 on 11/20/2020. However, her symptoms started approximately a week prior to that as the patient started having generalized weakness, fever and chills. In the hospital at [place], she was found to be hypoxic and she was placed on 15 L of oxygen by nasal cannula. She was started on Decadron and following that she was transferred to [facility] on 11/20/2020 for further evaluation. On today's evaluation the patient remains on 15 L of oxygen by nasal cannula. Laboratory markers show a LDH of 1482, her CRP is 239, her pro-calcitonin level is at 1.28, her white cell count is at 4.5 and the patient has a lymphopenia with a lymphocyte count of 0.7. The electrolytes all within normal limits. Renal function is within normal limits. Glucose slightly elevated at 235. The chest x-ray is showing bilateral pulmonary infiltrates mainly involving the left lung and or significantly in the right upper lobe area. The patient is known to have COPD/asthma. The patient is also has history of hypothyroidism, hyperlipidemia and gout. She has history of hiatal hernia.. She is on Decadron 6 mg by mouth daily. She is on no DVT prophylaxis is receiving 40 mg of Lovenox her d-dimer level is at 0.36. On 11/22/2020 patient seen in follow-up in intensive care unit. She is awake and alert, oriented 3, she is currently on BiPAP support with pressures of 14/5 and FiO2 of 100%, and her SpO2 is a 99%. Patient states she doesn't feel significantly more short of breath, however she tachypneic with a respiratory rate of 28 BPM, she has been febrile T-max of 10 1F, her pro-calcitonin came back elevated at 1.28 suggesting possibility of bacterial infection. Today we started her on Remdesivir, today's date to off treatment, her inflammatory markers are trending up, LDH is up to 1940, CRP is 143.6, d-dimer is 0.78, and is on prophylactic dose of Lovenox 40 mg daily, electrolytes and renal profile are unremarkable. O'Christiano is 9.2, hemoglobin is 11, platelet count is 322, neutrophils is 8.3, and in lymphocyte count is 0.5. Patient is on day 2 of high-dose IV steroids 20 mg daily. Patient is awake and alert, oriented 3, yesterday she reversed her CODE STATUS, from DO NOT RESUSCITATE to full code. On 11/23/2020 patient seen in follow-up in the intensive care unit, she remains on BiPAP support, has been very much dependent on it, and he desaturates rapidly even for short periods when the BiPAP mask is removed to give the patient oral medications, current BiPAP settings of 14/60 and FiO2 of 100%, her pulse ox is 93%. Awake and alert, she is oriented 3, she states her breathing is stable as long as she does not move and lays very still in bed. She is complaining of a dry cough, no chest discomfort, no palpitations. She is in sinus mechanism, bradycardic with a rate of 55 BPM, blood pressure is 116/66, not on any vasopressor support, her current IV fluids are 0.9 normal saline at a rate of 20 ML per hour. Patient's pattern has improved, T-max in last 24 hours 99.5F. Urinalysis was sent and shows no signs of infection, blood cultures will be sent today, last pro calcitonin yesterday was 1.29, repeat pro calcitonin has been sent and pending at this time, patient was empirically placed on azithromycin and Rocephin. Maintenance on high-dose IV steroids currently with Decadron 20 mg IV on the daily basis. Absent been reviewed, her d-dimer has trended up, and is at 5.13 today, her Lovenox dose will be adjusted 0.5 mg/kg of body weight twice daily, LDH is down slightly, 1670, CRP is relatively stable at 140.5. Electronic are within normal limits, patient is mildly prerenal, BUN is 30 creatinine 0.74, she also remains on oral dose of Lasix and she has had very limited oral intake. She has only been able to take one or 2 sips of oral liquids and she states things do not taste right. White blood cell count is 6.5, hemoglobin is 10.5. His chest x-ray has been reviewed and diffuse increasing groundglass opacities. I discussed the patient's CODE STATUS with her, and she is agreeable to CPR, intubation, defibrillation, CODE STATUS will be changed to full code On 11/22/20012020, patient is being seen for a follow-up. The patient is currently still on a BiPAP at a pressure of 14/6 cm of water with an FiO2 of 100%. Her minute ventilation is around 18-20 L per minute and the patient's respiratory rate is in the low 30s. She is feeling slightly better. She is able to speaks with a BiPAP mask. She is afebrile. The chest x-ray remains unchanged and the patient continues to have diffuse but the pulmonary infiltrates consistent with code 19 related pneumonia. The patient is awake and alert pH is following commands and answering questions. Her spirits are still high. She denies having any chest pain. She remains in a normal sinus rhythm. Her inflammatory markers are quite abnormal. At LDH from today was 1006 and 41, and her CRP was 59. Note that the CRP level was slightly lower. The pro- calcitonin level from yesterday was 0.18. CPKs nonelevated and a triglyceride level is at 154. The patient has a d-dimer of 14.8. She remains on Lovenox at a dose of 40 mg subcu every 12 hours which is in the order of 0.5 mg per KG every 12 hours. In terms of treatment, the patient remains on Decadron 20 mg IV on the daily basis and she is on Remdesivir and she also received 2 doses of Actemra 400 mg IV. Her oral intake was noted to be quite low as the patient is unable to get herself off the BiPAP for oral intake. Based on that, the patient will be given a PICC line today and she'll be started on TPN for nutritional support to maintain her nutritional status. No fever. No chills. Hemodynamically stable. No other issues for now. Her CODE STATUS is full code. Objective - Vital Signs Vital signs: Vital Signs Temp 97.0 F L 11/24/20 08:00 Pulse 50 L 11/24/20 13:00 Resp 30 H 11/24/20 13:00 BP 106/67 11/24/20 13:00 Pulse Ox 97 11/24/20 13:00 Intake & Output 11/23/20 11/24/20 11/24/20 18:59 06:59 18:59 Intake Total 670 600 600 Output Total 740 505 405 Balance -70 95 195 Weight 83.5 kg 83.5 kg Intake: IV 570 600 600 Remdesivir 100 mg In 250 Sodium Chloride 0.9% 250 ml @ 250 mls/hr IVPB DAILY@1200 [facility] Rx#: [id number] Sodium Chloride 0.9% 1, 520 600 350 000 ml @ 50 mls/hr IV . Q20H [facility] Rx#:[id number] cefTRIAXone 1 gm In 50 Sodium Chloride 0.9% 50 ml @ 100 mls/hr IVPB Q24HR [facility] Rx#:[id number] Intake, IV Titration 100 Amount Tocilizumab 400 mg In 100 Sodium Chloride 0.9% 80 ml @ 100 mls/hr IV ONCE ONE Rx#:[id number] Output: Urine 740 505 405 Other: Voiding Method Indwelling Catheter Indwelling Catheter Indwelling Catheter # Bowel Movements 1 - Exam GENERAL EXAM: Alert, pleasant, 60-year-old white female on the BiPAP support with pressures of 14/6% FiO2 of 100% currently satting 95% and FiO2 has been dropped to 80%, with respiratory rate at 28 comfortable in no apparent distress. HEAD: Normocephalic/atraumatic. EYES: Normal reaction of pupils, equal size. Conjunctiva pink, sclera white. NOSE: Clear with pink turbinates. THROAT: No erythema or exudates. NECK: No masses, no JVD, no thyroid enlargement, no adenopathy. CHEST: No chest wall deformity. Symmetrical expansion. LUNGS: Equal air entry with diffuse crackles CVS: Regular rate and rhythm, normal S1 and S2, no gallops, no murmurs, no rubs ABDOMEN: Soft, nontender. No hepatosplenomegaly, normal bowel sounds, no guarding or rigidity. EXTREMITIES: No clubbing, no edema, no cyanosis, 2+ pulses and upper and lower extremities. MUSCULOSKELETAL: Muscle strength and tone normal. SPINE: No scoliosis or deformity SKIN: No rashes CENTRAL NERVOUS SYSTEM: Alert and oriented -3. No focal deficits, tone is normal in all 4 extremities. PSYCHIATRIC: Alert and oriented -3. Appropriate affect. Intact judgment and insight. - Labs CBC & Chem 7: 11/24/20 11:32 11/24/20 11:32 Labs: Abnormal Lab Results - Last 24 Hours (Table) 11/23/20 11/24/20 11/24/20 Range/Units 17:03 04:17 04:17 RBC 3.40 L (3.80-5.40) m/uL Hgb 9.8 L (11.4-16.0) gm/dL Hct 29.8 L (34.0-46.0) % Lymphocytes # 0.7 L (1.0-4.8) k/uL D-Dimer (<0.60) mg/L FEU Sodium 134 L (137-145) mmol/L BUN 26 H (7-17) mg/dL Glucose 140 H (74-99) mg/dL POC Glucose (mg/dL) 123 H (75-99) mg/dL Magnesium (1.6-2.3) mg/dL AST (14-36) U/L Lactate Dehydrogenase 1641 H (313-618) U/L Creatine Kinase (30-135) U/L C-Reactive Protein 59.6 H (<10.0) mg/L Total Protein (6.3-8.2) g/dL Albumin (3.5-5.0) g/dL Triglycerides (<150) mg/dL 11/24/20 11/24/20 11/24/20 Range/Units 04:17 11:32 11:32 RBC (3.80-5.40) m/uL Hgb 11.1 L (11.4-16.0) gm/dL Hct 33.8 L (34.0-46.0) % Lymphocytes # 0.4 L (1.0-4.8) k/uL D-Dimer 14.83 H (<0.60) mg/L FEU Sodium 136 L (137-145) mmol/L BUN 25 H (7-17) mg/dL Glucose 121 H (74-99) mg/dL POC Glucose (mg/dL) (75-99) mg/dL Magnesium (1.6-2.3) mg/dL AST 40 H (14-36) U/L Lactate Dehydrogenase (313-618) U/L Creatine Kinase 136 H (30-135) U/L C-Reactive Protein (<10.0) mg/L Total Protein 5.4 L (6.3-8.2) g/dL Albumin 2.9 L (3.5-5.0) g/dL Triglycerides (<150) mg/dL 11/24/20 Range/Units 11:32 RBC (3.80-5.40) m/uL Hgb (11.4-16.0) gm/dL Hct (34.0-46.0) % Lymphocytes # (1.0-4.8) k/uL D-Dimer (<0.60) mg/L FEU Sodium (137-145) mmol/L BUN (7-17) mg/dL Glucose (74-99) mg/dL POC Glucose (mg/dL) (75-99) mg/dL Magnesium 2.4 H (1.6-2.3) mg/dL AST (14-36) U/L Lactate Dehydrogenase (313-618) U/L Creatine Kinase (30-135) U/L C-Reactive Protein (<10.0) mg/L Total Protein (6.3-8.2) g/dL Albumin (3.5-5.0) g/dL Triglycerides 154 H (<150) mg/dL Microbiology - Last 24 Hours (Table) 11/23/20 08:38 Blood Culture - Preliminary Blood No Growth after 24 hours Assessment and Plan Plan: 1 acute Covid 19 related pneumonia with bilateral pulmonary infiltrates most significant in the right upper lobe and the left lung seems to be diffusely infiltrated. The patient remains on BiPAP for respiratory support. The patient is at a pressure of 14/6 cm of water with an FiO2 ranging between 90% to 100%. As stated that the patient is being treated with a combination of Decadron 20 mg IV, she received Remdesivir, and she also received Actemra regarding her ongoing Covid 19 related pneumonia.. Inflammatory markers are still elevated. The patient's chest x-ray findings remains unchanged. Clinically she is feeling slightly better compared to yesterday. Oral intake is minimal at the patient is very much BiPAP dependent and the patient will be started on TPN for nutritional support. A PICC line will be inserted. 2 acute hypoxic respiratory failure secondary to above 3 chronic persistent bronchial asthma with an FEV1 of 82-87% on outpatient basis maintained on Symbicort 4 steroid-induced hyperglycemia, current blood sugars are stable. Monitor the blood sugar following initiation of TPN and watch for any significant hypoglycemia. 5 hypertension 6 hypothyroidism 7 Osteoarthritis and gout 8 Peripheral neuropathy involving lower extremities 9 Peripheral vascular disease 10 Chronic normocytic anemia 11 More than [id number] smoking history patient is currently an ex-smoker hiatal hernia with reflux Plan The patient is currently on BiPAP and will continue the BiPAP for now Decadron to 20 mg IV for 5 days and drop it down to 10 mg. She received Remde sivir, and she also received Actemra. Lovenox for DVT prophylaxis and the patient is being given 0.5 mg per KG every 12 hours based on elevated d-dimer Monitor inflammatory markers Monitor d-dimer Utilizing a combination of zinc, vitamin C, vitamin D, melatonin and Pepcid Monitor oxygenation and repeat the chest x-ray with the next 24 hours Insert a PICC line Initiate TPN for nutritional support and appropriate the recommendation was given We'll continue to follow. Condition remains critical. She will remain in the intensive care unit for now and this is a critically care evaluation that was on a more than 30 minutes. Family was updated. Time with Patient: Greater than 30
[2020-11-24] MEDS ORDERED: MVI, ADULT NO.4 WITH VIT K 10 ML, TRACE (CONC-1ML/DOSE) 1 ML in AMINO ACID 5%-D20W+LYTE... IV ONE ×3 (14:00)
[2020-11-24] MEDS ORDERED: LIDOCAINE 1% INJ 10MG/ML (20 ML MDV) SQ ONE (14:06)
--- NOTE | 2020-11-24 14:32 | XR ---
EXAMINATION TYPE: XR chest 1V portable DATE OF EXAM: 11/24/2020 COMPARISON: 11/24/2020 HISTORY: PICC line TECHNIQUE: Single frontal view of the chest is obtained. FINDINGS: Heart size stable. Tiny bilateral effusions noted. No sizable pneumothorax. Diffuse bilate ral patchy infiltrates are stable. PICC line is seen with the tip overlying the atrial caval junction . IMPRESSION: Diffuse bilateral patchy infiltrate stable correlate for atypical or interstitial pneumo rodrigo
--- NOTE | 2020-11-24 14:47 | IR ---
EXAMINATION TYPE: IR cvc insert >=5 years DATE OF EXAM: 11/24/2020 COMPARISON: NONE HISTORY: Infection, needs long-term intravenous access for therapy, total parenteral nutrition FINDINGS: Maximal barrier technique was utilized. Hand hygiene obtained with soap and water and alco hol-based hand rub. The skin overlying the left basilic vein was localized with ultrasound and noted to be compressible and patent by ultrasound. An ultrasound image was obtained [facility] Sterile technique utilized with the ultrasound machine. The skin overlying was prepped an d draped and Lidocaine used for local anesthesia. A skin tracy was made with a scalpel. Access was g ained to the vein under direct ultrasound guidance with a 21-gauge needle and a 0.018 inch wire was a dvanced. Access site was dilated with a peel-away sheath and the catheter tailored to length. Maria Del [address] ter advanced centrally and a post procedure chest x-ray verified placement. Catheter was fixed to th e skin and a sterile dressing placed. Hemostasis achieved and the catheter was aspirated and flushed with sterile saline. The patient remained in stable condition. IMPRESSION: STATUS POST ULTRASOUND GUIDED PICC LINE PLACEMENT, READY FOR USE. THIS PROCEDURE WAS PER FORMED BY THE UNDERSIGNED.
[2020-11-24] MEDS: SODIUM CHLORIDE 0.9% 1,000 ML IV SCH (15:21)
[2020-11-24] MEDS: FAT EMULSION 20% 250 ML in EMPTY BAG 1 BAG IV SCH (15:36)
[2020-11-24] MEDS: THEOPHYLLINE 24 HOUR 300 MG CAP.ER.24H PO SCH (20:19)
[2020-11-24] MEDS: ATORVASTATIN 40 MG TAB PO SCH (20:19)
[2020-11-24] MEDS: PRAMIPEXOLE 0.5 MG TAB PO SCH (20:20)
[2020-11-24] MEDS: MONTELUKAST 10 MG TAB PO SCH (20:20)
[2020-11-24] MEDS: GABAPENTIN 300 MG CAP PO SCH (20:20)
[2020-11-24] MEDS: MELATONIN 3 MG TABLET PO SCH (20:20)
[2020-11-25 02:10] LABS: Ferritin 971.1 ng/mL (10.0-291.0)
[2020-11-25 04:22] LABS: African American GFR (CKD) >90 (>60 ml/min/1.73 sqM); Anion Gap 4 mmol/L; Blood Urea Nitrogen 22 mg/dL (7-17); C Reactive Protein 40.8 mg/L (<10.0); Calcium 8.7 mg/dL (8.4-10.2); Carbon Dioxide 26 mmol/L (22-30); Chloride 104 mmol/L (98-107); Glucose 187 mg/dL (74-99); LDH 1862 U/L (313-618); Magnesium 2.4 mg/dL (1.6-2.3); Non-African American GFR(CKD) >90 (>60 ml/min/1.73 sqM); Phosphorus 3.4 mg/dL (2.5-4.5); Potassium 3.8 mmol/L (3.5-5.1); Sodium 134 mmol/L (137-145)
[2020-11-25] MEDS ORDERED: POTASSIUM CHLORIDE ER 20 MEQ TAB.ER PO SCH (06:00)
[2020-11-25] MEDS: LEVOTHYROXINE 75 MCG TAB PO SCH (06:15)
[2020-11-25] MEDS: ALBUTEROL HFA INHALER INHALATION SCH ×4 (07:42→20:44)
[2020-11-25] MEDS: SYMBICORT 160-4.5 MCG INHALER INHALATION SCH ×2 (07:43→20:44)
[2020-11-25] MEDS: TIOTROPIUM 2.5 MCG INHALER INHALATION SCH (07:43)
[2020-11-25] MEDS: dexAMETHasone 4 MG TAB PO SCH (08:28)
[2020-11-25] MEDS: ENOXAPARIN 40 MG/0.4 ML SYRINGE SQ SCH ×2 (08:28→20:01)
[2020-11-25] MEDS: COLCHICINE 0.6 MG EACH PO SCH (08:28)
[2020-11-25] MEDS: GABAPENTIN 100 MG CAP PO SCH ×2 (08:29→12:41)
[2020-11-25] MEDS: FAMOTIDINE 20 MG/2 ML VIAL IV SCH ×2 (08:29→20:00)
[2020-11-25] MEDS: ZINC SULFATE 220 MG CAP PO SCH (08:29)
[2020-11-25] MEDS: SUCRALFATE 1 GM TAB PO SCH ×4 (08:29→20:03)
[2020-11-25] MEDS: ASCORBIC ACID 500 MG TAB PO SCH (08:29)
[2020-11-25] MEDS: allopurinoL 300 MG TAB PO SCH (08:29)
--- NOTE | 2020-11-25 08:51 | P.PN ---
Subjective Progress Note Date: 11/25/20 60-year-old here patient hospitalized for COVID 19 related pneumonia and hypoxemia. The patient was found to have a low oxygen saturation. She was diagnosed having COVID 19 on 11/20/2020. However, her symptoms started approximately a week prior to that as the patient started having generalized weakness, fever and chills. In the hospital at [facility], she was found to be hypoxic and she was placed on 15 L of oxygen by nasal cannula. She was started on Decadron and following that she was transferred to [facility] on 11/20/2020 for further evaluation. On today's evaluation the patient remains on 15 L of oxygen by nasal cannula. Laboratory markers show a LDH of 1482, her CRP is 239, her pro-calcitonin level is at 1.28, her white cell count is at 4.5 and the patient has a lymphopenia with a lymphocyte count of 0.7. The electrolytes all within normal limits. Renal function is within normal limits. Glucose slightly elevated at 235. The chest x-ray is showing bilateral pulmonary infiltrates mainly involving the left lung and or significantly in the right upper lobe area. The patient is known to have COPD/asthma. The patient is also has history of hypothyroidism, hyperlipidemia and gout. She has history of hiatal hernia.. She is on Decadron 6 mg by mouth daily. She is on no DVT prophylaxis is receiving 40 mg of Lovenox her d-dimer level is at 0.36. On 11/22/2020 patient seen in follow-up in intensive care unit. She is awake and alert, oriented 3, she is currently on BiPAP support with pressures of 14/5 and FiO2 of 100%, and her SpO2 is a 99%. Patient states she doesn't feel significantly more short of breath, however she tachypneic with a respiratory rate of 28 BPM, she has been febrile T-max of 10 1F, her pro-calcitonin came back elevated at 1.28 suggesting possibility of bacterial infection. Today we started her on Remdesivir, today's date to off treatment, her inflammatory markers are trending up, LDH is up to 1940, CRP is 143.6, d-dimer is 0.78, and is on prophylactic dose of Lovenox 40 mg daily, electrolytes and renal profile are unremarkable. O'Christiano is 9.2, hemoglobin is 11, platelet count is 322, neutrophils is 8.3, and in lymphocyte count is 0.5. Patient is on day 2 of high-dose IV steroids 20 mg daily. Patient is awake and alert, oriented 3, yesterday she reversed her CODE STATUS, from DO NOT RESUSCITATE to full code. On 11/23/2020 patient seen in follow-up in the intensive care unit, she remains on BiPAP support, has been very much dependent on it, and he desaturates rapidly even for short periods when the BiPAP mask is removed to give the patient oral medications, current BiPAP settings of 14/60 and FiO2 of 100%, her pulse ox is 93%. Awake and alert, she is oriented 3, she states her breathing is stable as long as she does not move and lays very still in bed. She is complaining of a dry cough, no chest discomfort, no palpitations. She is in sinus mechanism, bradycardic with a rate of 55 BPM, blood pressure is 116/66, not on any vasopressor support, her current IV fluids are 0.9 normal saline at a rate of 20 ML per hour. Patient's pattern has improved, T-max in last 24 hours 99.5F. Urinalysis was sent and shows no signs of infection, blood cultures will be sent today, last pro calcitonin yesterday was 1.29, repeat pro calcitonin has been sent and pending at this time, patient was empirically placed on azithromycin and Rocephin. Maintenance on high-dose IV steroids currently with Decadron 20 mg IV on the daily basis. Absent been reviewed, her d-dimer has trended up, and is at 5.13 today, her Lovenox dose will be adjusted 0.5 mg/kg of body weight twice daily, LDH is down slightly, 1670, CRP is relatively stable at 140.5. Electronic are within normal limits, patient is mildly prerenal, BUN is 30 creatinine 0.74, she also remains on oral dose of Lasix and she has had very limited oral intake. She has only been able to take one or 2 sips of oral liquids and she states things do not taste right. White blood cell count is 6.5, hemoglobin is 10.5. His chest x-ray has been reviewed and diffuse increasing groundglass opacities. I discussed the patient's CODE STATUS with her, and she is agreeable to CPR, intubation, defibrillation, CODE STATUS will be changed to full code On 11/22/20012020, patient is being seen for a follow-up. The patient is currently still on a BiPAP at a pressure of 14/6 cm of water with an FiO2 of 100%. Her minute ventilation is around 18-20 L per minute and the patient's respiratory rate is in the low 30s. She is feeling slightly better. She is able to speaks with a BiPAP mask. She is afebrile. The chest x-ray remains unchanged and the patient continues to have diffuse but the pulmonary infiltrates consistent with code 19 related pneumonia. The patient is awake and alert pH is following commands and answering questions. Her spirits are still high. She denies having any chest pain. She remains in a normal sinus rhythm. Her inflammatory markers are quite abnormal. At LDH from today was 1006 and 41, and her CRP was 59. Note that the CRP level was slightly lower. The pro- calcitonin level from yesterday was 0.18. CPKs nonelevated and a triglyceride level is at 154. The patient has a d-dimer of 14.8. She remains on Lovenox at a dose of 40 mg subcu every 12 hours which is in the order of 0.5 mg per KG every 12 hours. In terms of treatment, the patient remains on Decadron 20 mg IV on the daily basis and she is on Remdesivir and she also received 2 doses of Actemra 400 mg IV. Her oral intake was noted to be quite low as the patient is unable to get herself off the BiPAP for oral intake. Based on that, the patient will be given a PICC line today and she'll be started on TPN for nutritional support to maintain her nutritional status. No fever. No chills. Hemodynamically stable. No other issues for now. Her CODE STATUS is full code. On 11/25/2020, I'm seeing the patient for a follow-up. After doing some attempt s to drop down the FiO2, overnight the patient became hypoxic again and she had to be placed back on an FiO2 of 100% with a BiPAP pressure of 14/6 cm of water. Her current respiratory rate is in the order of 22-30 breaths per minute. Minute ventilation is improved compared to yesterday while being on a BiPAP machine. The patient is comfortable. She is tolerating the treatment well. Her d-dimer is up to 30.01. Rest of the inflammatory markers show an LDH level of 1862 and the CRP is down to 40.8. Pro-calcitonin level was at 0.18. The chest x-ray from today still pending. Meanwhile, as far as treatment, the patient has received Lovenox at a dose of 40 mg subcu every 12 hours which is in the order of 0.5 mg per KG every 12 hours. In terms of treatment, the patient remains on Decadron 20 mg IV on the daily basis they #4 and she is on Remdesivir #5 and she also received 2 doses of Actemra 400 mg IV. Meanwhile be also inserted a PICC line in the left upper extremity and the patient was started on TPN for nutritional support. No altered mentation pH is resting comfortably in bed. Is slightly higher since the patient was started on TPN and septal 187 and the will going to put this patient on sliding scale blood sugar coverage. Objective - Vital Signs Vital signs: Vital Signs Temp 97.1 F L 11/25/20 04:00 Pulse 49 L 11/25/20 07:00 Resp 39 H 11/25/20 07:00 BP 90/65 11/25/20 07:00 Pulse Ox 89 L 11/25/20 07:00 Intake & Output 11/24/20 11/25/20 11/25/20 18:59 06:59 18:59 Intake Total 900 700 50 Output Total 705 440 30 Balance 195 260 20 Weight 83.5 kg 86.8 kg Intake: IV 900 550 50 Remdesivir 100 mg In 250 Sodium Chloride 0.9% 250 ml @ 250 mls/hr IVPB DAILY@1200 JEAN CLAUDE Rx#: [id number] Sodium Chloride 0.9% 1, 650 550 50 000 ml @ 50 mls/hr IV . Q20H JEAN CLAUDE Rx#:[id number] Oral 150 Output: Urine 705 440 30 Other: Voiding Method Indwelling Catheter Indwelling Catheter # Bowel Movements 1 - Exam GENERAL EXAM: Alert, pleasant, 60-year-old white female on the BiPAP support with pressures of 14/6% FiO2 of 100% currently satting 95% and FiO2 has been dropped to 80%, with respiratory rate at 28 comfortable in no apparent distress. HEAD: Normocephalic/atraumatic. EYES: Normal reaction of pupils, equal size. Conjunctiva pink, sclera white. NOSE: Clear with pink turbinates. THROAT: No erythema or exudates. NECK: No masses, no JVD, no thyroid enlargement, no adenopathy. CHEST: No chest wall deformity. Symmetrical expansion. LUNGS: Equal air entry with diffuse crackles CVS: Regular rate and rhythm, normal S1 and S2, no gallops, no murmurs, no rubs ABDOMEN: Soft, nontender. No hepatosplenomegaly, normal bowel sounds, no guarding or rigidity. EXTREMITIES: No clubbing, no edema, no cyanosis, 2+ pulses and upper and lower extremities. MUSCULOSKELETAL: Muscle strength and tone normal. SPINE: No scoliosis or deformity SKIN: No rashes CENTRAL NERVOUS SYSTEM: Alert and oriented -3. No focal deficits, tone is normal in all 4 extremities. PSYCHIATRIC: Alert and oriented -3. Appropriate affect. Intact judgment and insight. - Labs CBC & Chem 7: 11/24/20 11:32 11/25/20 03:35 Labs: Abnormal Lab Results - Last 24 Hours (Table) 11/24/20 11/24/20 11/24/20 Range/Units 11:32 11:32 11:32 Hgb 11.1 L (11.4-16.0) gm/dL Hct 33.8 L (34.0-46.0) % Lymphocytes # 0.4 L (1.0-4.8) k/uL D-Dimer (<0.60) mg/L FEU Sodium 136 L (137-145) mmol/L BUN 25 H (7-17) mg/dL Glucose 121 H (74-99) mg/dL Magnesium 2.4 H (1.6-2.3) mg/dL Ferritin 971.1 H (10.0-291.0) ng/mL AST 40 H (14-36) U/L Lactate Dehydrogenase (313-618) U/L Creatine Kinase 136 H (30-135) U/L C-Reactive Protein (<10.0) mg/L Total Protein 5.4 L (6.3-8.2) g/dL Albumin 2.9 L (3.5-5.0) g/dL Triglycerides 154 H (<150) mg/dL 11/25/20 11/25/20 Range/Units 03:35 03:35 Hgb (11.4-16.0) gm/dL Hct (34.0-46.0) % Lymphocytes # (1.0-4.8) k/uL D-Dimer 30.01 H (<0.60) mg/L FEU Sodium 134 L (137-145) mmol/L BUN 22 H (7-17) mg/dL Glucose 187 H (74-99) mg/dL Magnesium 2.4 H (1.6-2.3) mg/dL Ferritin (10.0-291.0) ng/mL AST (14-36) U/L Lactate Dehydrogenase 1862 H (313-618) U/L Creatine Kinase (30-135) U/L C-Reactive Protein 40.8 H (<10.0) mg/L Total Protein (6.3-8.2) g/dL Albumin (3.5-5.0) g/dL Triglycerides (<150) mg/dL Microbiology - Last 24 Hours (Table) 11/23/20 08:38 Blood Culture - Preliminary Blood No Growth after 24 hours Assessment and Plan Plan: 1 acute Covid 19 related pneumonia with bilateral pulmonary infiltrates most significant in the right upper lobe and the left lung seems to be diffusely infiltrated. The patient remains on BiPAP for respiratory support. The patient is at a pressure of 14/6 cm of water with an FiO2 ranging between 90% to 100%. As stated that the patient is being treated with a combination of Decadron 20 mg IV day #4 today, she received Remdesivir #5 today, and she also received Actemra regarding her ongoing Covid 19 related pneumonia.. Inflammatory markers are still elevated. The patient's chest x-ray findings remains unchanged. Clin ically she is feeling slightly better compared to yesterday. Oral intake is minimal at the patient is very much BiPAP dependent and the patient will be started on TPN for nutritional support. A PICC line was inserted and the patient was started on TPN for nutritional support. After making some attempts to drop down the FiO2, she had to be placed back on 100% oxygen to maintain a saturation above 90%. 2 acute hypoxic respiratory failure secondary to above 3 chronic persistent bronchial asthma with an FEV1 of 82-87% on outpatient basis maintained on Symbicort 4 steroid-induced hyperglycemia, current blood sugars are stable. Monitor the blood sugar following initiation of TPN and watch for any significant hypoglycemia. 5 hypertension 6 hypothyroidism 7 Osteoarthritis and gout 8 Peripheral neuropathy involving lower extremities 9 Peripheral vascular disease 10 Chronic normocytic anemia 11 More than 42-[id number] smoking history patient is currently an ex-smoker hiatal hernia with reflux Plan The patient is currently on BiPAP and will continue the BiPAP for now Decadron to 20 mg IV for 5 days and drop it down to 10 mg. she is on day #4 today She received Remdesivir and she is on day #5 today, and she also received Actemra. Lovenox for DVT prophylaxis and the patient is being given 0.5 mg per KG every 12 hours based on elevated d-dimer Monitor inflammatory markers Monitor d-dimer Utilizing a combination of zinc, vitamin C, vitamin D, melatonin and Pepcid Monitor oxygenation and repeat the chest x-ray with the next 24 hours PICC line the patient is currently receiving TPN for an incision support TPN for nutritional support and appropriate the recommendation was given as sliding scale blood sugar coverage We'll continue to follow. Condition remains critical. She will remain in the intensive care unit for now and this is a critically care evaluation that was on a more than 30 minutes. Family was updated. Unfortunately, she did some progress earlier, yet on today's evaluation, she is still on the same BiPAP setting where an FiO2 of 100%. A much concerned that she may ultimately failed and she may require intubation mechanical ventilation for that reason I kept the patient ICU for now. I am offering nutrition through TPN. We'll monitor the blood sugar. We'll monitor the chest x-ray. Monitor inflammatory markers. D- dimer still elevated. Affirmative markers are still elevated. Not a whole lot of progress over the past 24 hours. Time with Patient: Greater than 30
[2020-11-25] MEDS ORDERED: INSULIN ASPART (NovoLOG) 100 UNIT/ML VIAL SQ SCH ×2 (09:00→23:30)
[2020-11-25 12:09] LABS: Glucose,Whole Blood 143 mg/dL (75-99)
[2020-11-25] MEDS: SODIUM CHLORIDE 0.9% 1,000 ML IV SCH (12:39)
[2020-11-25] MEDS: REMDESIVIR 100 MG in SODIUM CHLORIDE 0.9% 250 ML IVPB SCH (12:40)
[2020-11-25] MEDS: INSULIN ASPART (NovoLOG) 100 UNIT/ML VIAL SQ SCH ×3 (12:41→23:49)
[2020-11-25] MEDS: MVI, ADULT NO.4 WITH VIT K 10 ML, TRACE (CONC-1ML/DOSE) 1 ML in AMINO ACID 5%-D20W+LYTE... IV SCH ×3 (15:20)
--- NOTE | 2020-11-25 16:16 | P.PN ---
Subjective Progress Note Date: 11/24/20 Principal diagnosis: COVID 19 related pneumonia and hypoxemia Acute hypoxic respiratory failure 60-year-old female came in with compensative shortness of breath found to have very low oxygen saturations patient was diagnosed with Covid 19 about 3 days ago patient had having symptoms for about a week. Patient was also company of fever chills patient has low-grade fever here. Patient was seen in [facility] subsequently transferred here patient is presently on 15 L of oxygen. Patient does have history of COPD. Patient was started on Decadron. Pulmonary was consulted. She was complaining of for cough without any significant sputum production. 11/24/2020, patient is seen for a follow-up. The patient is currently still on a BiPAP with an FiO2 of 100%; feeling slightly better; remains afebrile. The chest x-ray remains unchanged and the patient continues to have diffuse but the pulmonary infiltrates consistent with code 19 related pneumonia. Her inflammatory markers are quite abnormal. At LDH from today was 1006 and 41, and her CRP was 59. Note that the CRP level was slightly lower. The pro-calcitonin level from yesterday was 0.18. CPKs nonelevated and a triglyceride level is at 154. The patient has a d-dimer of 14.8. She remains on Lovenox at a dose of 40 mg subcu every 12 hours which is in the order of 0.5 mg per KG every 12 hours. In terms of treatment, the patient remains on Decadron 20 mg IV on the daily basis and she is on Remdesivir and she also received 2 doses of Actemra 400 mg IV. Her oral intake was noted to be quite low as the patient is unable to get herself off the BiPAP for oral intake. Based on that, the patient will be given a PICC line today and she'll be started on TPN for nutritional support to maintain her nutritional status. No fever. No chills. Hemodynamically stable. No other issues for now. Her CODE STATUS is full code. Objective - Vital Signs Vital signs: Vital Signs Temp 97.0 F L 11/24/20 08:00 Pulse 51 L 11/24/20 12:00 Resp 29 H 11/24/20 12:00 BP 118/65 11/24/20 12:00 Pulse Ox 93 L 11/24/20 12:00 Intake & Output 11/23/20 11/24/20 11/24/20 18:59 06:59 18:59 Intake Total 670 600 200 Output Total 740 505 255 Balance -70 95 -55 Weight 83.5 kg 83.5 kg Intake: IV 570 600 200 Sodium Chloride 0.9% 1, 520 600 200 000 ml @ 50 mls/hr IV . Q20H JEAN CLAUDE Rx#:[id number] cefTRIAXone 1 gm In 50 Sodium Chloride 0.9% 50 ml @ 100 mls/hr IVPB Q24HR JEAN CLAUDE Rx#:[id number] Intake, IV Titration 100 Amount Tocilizumab 400 mg In 100 Sodium Chloride 0.9% 80 ml @ 100 mls/hr IV ONCE ONE Rx#:[id number] Output: Urine 740 505 255 Other: Voiding Method Indwelling Catheter Indwelling Catheter Indwelling Catheter # Bowel Movements 1 - Exam GENERAL: The patient is alert and oriented x3, not in any acute distress. Well developed, well nourished. HEENT: Pupils are round and equally reacting to light. EOMI. No scleral icterus. No conjunctival pallor. Normocephalic, atraumatic. No pharyngeal erythema. No thyromegaly. CARDIOVASCULAR: S1 and S2 present. No murmurs, rubs, or gallops. PULMONARY: Diffuse bilateral rhonchi without any significant wheezing fairly good air entry into bilateral lung ruiz ABDOMEN: Soft, nontender, nondistended, normoactive bowel sounds. No palpable organomegaly. MUSCULOSKELETAL: No joint swelling or deformity. EXTREMITIES: No cyanosis, clubbing, patient does have some pedal edema NEUROLOGICAL: Gross neurological examination did not reveal any focal deficits. - Labs CBC & Chem 7: 11/24/20 11:32 11/25/20 03:35 Labs: Abnormal Lab Results - Last 24 Hours (Table) 11/23/20 11/24/20 11/24/20 Range/Units 17:03 04:17 04:17 RBC 3.40 L (3.80-5.40) m/uL Hgb 9.8 L (11.4-16.0) gm/dL Hct 29.8 L (34.0-46.0) % Lymphocytes # 0.7 L (1.0-4.8) k/uL D-Dimer (<0.60) mg/L FEU Sodium 134 L (137-145) mmol/L BUN 26 H (7-17) mg/dL Glucose 140 H (74-99) mg/dL POC Glucose (mg/dL) 123 H (75-99) mg/dL Magnesium (1.6-2.3) mg/dL AST (14-36) U/L Lactate Dehydrogenase 1641 H (313-618) U/L Creatine Kinase (30-135) U/L C-Reactive Protein 59.6 H (<10.0) mg/L Total Protein (6.3-8.2) g/dL Albumin (3.5-5.0) g/dL Triglycerides (<150) mg/dL 11/24/20 11/24/20 11/24/20 Range/Units 04:17 11:32 11:32 RBC (3.80-5.40) m/uL Hgb 11.1 L (11.4-16.0) gm/dL Hct 33.8 L (34.0-46.0) % Lymphocytes # 0.4 L (1.0-4.8) k/uL D-Dimer 14.83 H (<0.60) mg/L FEU Sodium 136 L (137-145) mmol/L BUN 25 H (7-17) mg/dL Glucose 121 H (74-99) mg/dL POC Glucose (mg/dL) (75-99) mg/dL Magnesium (1.6-2.3) mg/dL AST 40 H (14-36) U/L Lactate Dehydrogenase (313-618) U/L Creatine Kinase 136 H (30-135) U/L C-Reactive Protein (<10.0) mg/L Total Protein 5.4 L (6.3-8.2) g/dL Albumin 2.9 L (3.5-5.0) g/dL Triglycerides (<150) mg/dL 11/24/20 Range/Units 11:32 RBC (3.80-5.40) m/uL Hgb (11.4-16.0) gm/dL Hct (34.0-46.0) % Lymphocytes # (1.0-4.8) k/uL D-Dimer (<0.60) mg/L FEU Sodium (137-145) mmol/L BUN (7-17) mg/dL Glucose (74-99) mg/dL POC Glucose (mg/dL) (75-99) mg/dL Magnesium 2.4 H (1.6-2.3) mg/dL AST (14-36) U/L Lactate Dehydrogenase (313-618) U/L Creatine Kinase (30-135) U/L C-Reactive Protein (<10.0) mg/L Total Protein (6.3-8.2) g/dL Albumin (3.5-5.0) g/dL Triglycerides 154 H (<150) mg/dL Microbiology - Last 24 Hours (Table) 11/23/20 08:38 Blood Culture - Preliminary Blood No Growth after 24 hours Assessment and Plan Assessment: -Acute hypoxic respiratory failure: Requiring BiPAP.. Secondary to Covid 19 pneumonia patient was started on Decadron started on the GI prophylaxis as well as Lovenox for DVT prophylaxis. Started on remdesivir. -COPD with mild acute exacerbation secondary to Covid 19. Pulmonology was consulted -Hyperlipidemia -Hypothyroidism -History of gout for which she'll patient is on colchicine which will be continu ed -Peripheral edema: Due to probably chronic venous stasis and patient will be resumed on Lasix oral. -Hiatal hernia with gastroesophageal reflux disease patient was resumed on Prilosec CODE STATUS; full code
--- NOTE | 2020-11-25 16:18 | P.PN ---
Subjective Progress Note Date: 11/25/20 Principal diagnosis: COVID 19 related pneumonia and hypoxemia Acute hypoxic respiratory failure 60-year-old female came in with compensative shortness of breath found to have very low oxygen saturations patient was diagnosed with Covid 19 about 3 days ago patient had having symptoms for about a week. Patient was also company of fever chills patient has low-grade fever here. Patient was seen in [facility] subsequently transferred here patient is presently on 15 L of oxygen. Patient does have history of COPD. Patient was started on Decadron. Pulmonary was consulted. She was complaining of for cough without any significant sputum production. 11/24/2020, patient is seen for a follow-up. The patient is currently still on a BiPAP with an FiO2 of 100%; feeling slightly better; remains afebrile. The chest x-ray remains unchanged and the patient continues to have diffuse but the pulmonary infiltrates consistent with code 19 related pneumonia. Her inflammatory markers are quite abnormal. At LDH from today was 1006 and 41, and her CRP was 59. Note that the CRP level was slightly lower. The pro-calcitonin level from yesterday was 0.18. CPKs nonelevated and a triglyceride level is at 154. The patient has a d-dimer of 14.8. She remains on Lovenox at a dose of 40 mg subcu every 12 hours which is in the order of 0.5 mg per KG every 12 hours. In terms of treatment, the patient remains on Decadron 20 mg IV on the daily basis and she is on Remdesivir and she also received 2 doses of Actemra 400 mg IV. Her oral intake was noted to be quite low as the patient is unable to get herself off the BiPAP for oral intake. Based on that, the patient will be given a PICC line today and she'll be started on TPN for nutritional support to maintain her nutritional status. No fever. No chills. Hemodynamically stable. No other issues for now. Her CODE STATUS is full code. 11/25/2020 patient is seen and evaluated in room for a follow-up; patient became hypoxic again and she had to be placed back on an FiO2 of 100% with a BiPAP pressure of 14/6 cm of water. Her current respiratory rate is in the order of 22-30 breaths per minute. The patient is comfortable. She is tolerating the treatment well. Laboratory review shows d-dimer is up to 30.01. Rest of the inflammatory markers show an LDH level of 1862 and the CRP is down to 40.8. Pro-calcitonin level was at 0.18. patient has received Lovenox at a dose of 40 mg subcu every 12 hours which is in the order of 0.5 mg per KG every 12 hours. In terms of treatment, the patient remains on Decadron 20 mg IV on the daily basis they #4 and she is on Remdesivir #5 and she also received 2 doses of Actemra 400 mg IV. Meanwhile be also inserted a PICC line in the left upper extremity and the patient was started on TPN for nutritional support. No altered mentation pH is resting comfortably in bed. Is slightly higher since the patient was started on TPN and septal 187 and the will going to put this patient on sliding scale blood sugar coverage. Objective - Vital Signs Vital signs: Vital Signs Temp 97.6 F 11/25/20 08:00 Pulse 54 L 11/25/20 11:00 Resp 27 H 11/25/20 11:00 BP 125/70 11/25/20 11:00 Pulse Ox 93 L 11/25/20 11:00 Intake & Output 11/24/20 11/25/20 11/25/20 18:59 06:59 18:59 Intake Total 900 700 290 Output Total 705 440 305 Balance 195 260 -15 Weight 83.5 kg 86.8 kg Intake: IV 900 550 250 Remdesivir 100 mg In 250 Sodium Chloride 0.9% 250 ml @ 250 mls/hr IVPB DAILY@1200 [facility] Rx#: [id number] Sodium Chloride 0.9% 1, 650 550 250 000 ml @ 50 mls/hr IV . Q20H [facility] Rx#:[id number] Oral 150 40 Output: Urine 705 440 305 Other: Voiding Method Indwelling Catheter Indwelling Catheter # Bowel Movements 1 - Exam GENERAL: The patient is alert and oriented x3, not in any acute distress. Well developed, well nourished. HEENT: Pupils are round and equally reacting to light. EOMI. No scleral icterus. No conjunctival pallor. Normocephalic, atraumatic. No pharyngeal erythema. No thyromegaly. CARDIOVASCULAR: S1 and S2 present. No murmurs, rubs, or gallops. PULMONARY: Diffuse bilateral rhonchi without any significant wheezing fairly good air entry into bilateral lung ruiz ABDOMEN: Soft, nontender, nondistended, normoactive bowel sounds. No palpable organomegaly. MUSCULOSKELETAL: No joint swelling or deformity. EXTREMITIES: No cyanosis, clubbing, patient does have some pedal edema NEUROLOGICAL: Gross neurological examination did not reveal any focal deficits. - Labs CBC & Chem 7: 11/24/20 11:32 11/25/20 03:35 Labs: Abnormal Lab Results - Last 24 Hours (Table) 11/24/20 11/24/20 11/25/20 Range/Units 11:32 11:32 03:35 D-Dimer 30.01 H (<0.60) mg/L FEU Sodium 136 L (137-145) mmol/L BUN 25 H (7-17) mg/dL Glucose 121 H (74-99) mg/dL Magnesium 2.4 H (1.6-2.3) mg/dL Ferritin 971.1 H (10.0-291.0) ng/mL AST 40 H (14-36) U/L Lactate Dehydrogenase (313-618) U/L Creatine Kinase 136 H (30-135) U/L C-Reactive Protein (<10.0) mg/L Total Protein 5.4 L (6.3-8.2) g/dL Albumin 2.9 L (3.5-5.0) g/dL Triglycerides 154 H (<150) mg/dL 11/25/20 Range/Units 03:35 D-Dimer (<0.60) mg/L FEU Sodium 134 L (137-145) mmol/L BUN 22 H (7-17) mg/dL Glucose 187 H (74-99) mg/dL Magnesium 2.4 H (1.6-2.3) mg/dL Ferritin (10.0-291.0) ng/mL AST (14-36) U/L Lactate Dehydrogenase 1862 H (313-618) U/L Creatine Kinase (30-135) U/L C-Reactive Protein 40.8 H (<10.0) mg/L Total Protein (6.3-8.2) g/dL Albumin (3.5-5.0) g/dL Triglycerides (<150) mg/dL Microbiology - Last 24 Hours (Table) 11/23/20 08:38 Blood Culture - Preliminary Blood No Growth after 48 hours Assessment and Plan Assessment: -Acute hypoxic respiratory failure: Requiring BiPAP.. Secondary to Covid 19 pneumonia patient was started on Decadron started on the GI prophylaxis as well as Lovenox for DVT prophylaxis. Started on remdesivir. -COPD with mild acute exacerbation secondary to Covid 19. Pulmonology was consulted -Hyperlipidemia -Hypothyroidism -History of gout for which she'll patient is on colchicine which will be continued -Peripheral edema: Due to probably chronic venous stasis and patient will be resumed on Lasix oral. -Hiatal hernia with gastroesophageal reflux disease patient was resumed on Prilosec CODE STATUS; full code
[2020-11-25 18:25] LABS: Glucose,Whole Blood 194 mg/dL (75-99)
[2020-11-25] MEDS: GABAPENTIN 300 MG CAP PO SCH (20:01)
[2020-11-25] MEDS: ATORVASTATIN 40 MG TAB PO SCH (20:01)
[2020-11-25] MEDS: MONTELUKAST 10 MG TAB PO SCH (20:01)
[2020-11-25] MEDS: MELATONIN 3 MG TABLET PO SCH (20:01)
[2020-11-25] MEDS: PRAMIPEXOLE 0.5 MG TAB PO SCH (20:02)
[2020-11-25] MEDS: THEOPHYLLINE 24 HOUR 300 MG CAP.ER.24H PO SCH (20:02)
[2020-11-25 23:19] LABS: Glucose,Whole Blood 245 mg/dL (75-99)
[2020-11-26 03:42] LABS: Glucose,Whole Blood 176 mg/dL (75-99)
[2020-11-26 03:58] LABS: Basophils # (A) 0.1 k/uL (0-0.2); Basophils % (A) 1 %; Eosinophils % (A) 0 %; HCT 32.1 % (34.0-46.0); HGB 10.1 gm/dL (11.4-16.0); Lymphocytes # (A) 0.7 k/uL (1.0-4.8); Lymphocytes % (A) 6 %; MCH 28.1 pg (25.0-35.0); MCHC 31.4 g/dL (31.0-37.0); MCV 89.6 fL (80.0-100.0); Mean Platelet Volume 7.8; Monocytes # (A) 0.5 k/uL (0-1.0); Monocytes % (A) 4 %; Neutrophils # (A) 10.3 k/uL (1.3-7.7); Neutrophils % (A) 87 %; Platelet Count 337 k/uL (150-450); RBC 3.58 m/uL (3.80-5.40); WBC 11.9 k/uL (3.8-10.6)
[2020-11-26 04:15] LABS: ALT 23 U/L (4-34); AST 32 U/L (14-36); African American GFR (CKD) >90 (>60 ml/min/1.73 sqM); Albumin 2.3 g/dL (3.5-5.0); Alkaline Phosphatase 117 U/L (38-126); Anion Gap -1 mmol/L; Blood Urea Nitrogen 21 mg/dL (7-17); C Reactive Protein 22.8 mg/L (<10.0); Calcium 8.5 mg/dL (8.4-10.2); Carbon Dioxide 29 mmol/L (22-30); Chloride 108 mmol/L (98-107); Creatine Kinase 63 U/L (30-135); Glucose 165 mg/dL (74-99); LDH 1776 U/L (313-618); Magnesium 2.4 mg/dL (1.6-2.3); Non-African American GFR(CKD) >90 (>60 ml/min/1.73 sqM); Phosphorus 3.4 mg/dL (2.5-4.5); Potassium 3.7 mmol/L (3.5-5.1); Sodium 136 mmol/L (137-145); Total Bilirubin 0.3 mg/dL (0.2-1.3); Total Protein 4.5 g/dL (6.3-8.2)
[2020-11-26] MEDS ORDERED: POTASSIUM CHLORIDE ER 20 MEQ TAB.ER PO SCH ×2 (05:00→17:00)
[2020-11-26] MEDS: INSULIN ASPART (NovoLOG) 100 UNIT/ML VIAL SQ SCH ×6 (05:17→23:20)
[2020-11-26] MEDS: SODIUM CHLORIDE 0.9% 1,000 ML IV SCH (05:17)
[2020-11-26] MEDS: LEVOTHYROXINE 75 MCG TAB PO SCH (05:32)
[2020-11-26] MEDS: ALBUTEROL HFA INHALER INHALATION SCH ×4 (07:32→19:15)
[2020-11-26] MEDS: SYMBICORT 160-4.5 MCG INHALER INHALATION SCH ×2 (07:32→19:15)
[2020-11-26] MEDS: TIOTROPIUM 2.5 MCG INHALER INHALATION SCH (07:32)
--- NOTE | 2020-11-26 07:48 | XR ---
EXAMINATION TYPE: XR chest 1V portable DATE OF EXAM: 11/26/2020 COMPARISON: 11/24/2020 INDICATION: Covid TECHNIQUE: Single frontal view of the chest is obtained. FINDINGS: The heart size is normal. The pulmonary vasculature is prominent. Diffuse increased lung markings are present greater in the right lower lobe. Findings can be compatib le with atypical pneumonia. PICC line enters on the left tip in the distal superior vena cava region. IMPRESSION: 1. Diffuse increased bilateral lung infiltrates can be compatible with atypical pneumonia. This may b e worsening in the right lower lobe.
--- NOTE | 2020-11-26 08:52 | P.PN ---
Subjective Progress Note Date: 11/26/20 60-year-old here patient hospitalized for COVID 19 related pneumonia and hypoxemia. The patient was found to have a low oxygen saturation. She was diagnosed having COVID 19 on 11/20/2020. However, her symptoms started approximately a week prior to that as the patient started having generalized weakness, fever and chills. In the hospital at [place], she was found to be hypoxic and she was placed on 15 L of oxygen by nasal cannula. She was started on Decadron and following that she was transferred to [facility] on 11/20/2020 for further evaluation. On today's evaluation the patient remains on 15 L of oxygen by nasal cannula. Laboratory markers show a LDH of 1482, her CRP is 239, her pro-calcitonin level is at 1.28, her white cell count is at 4.5 and the patient has a lymphopenia with a lymphocyte count of 0.7. The electrolytes all within normal limits. Renal function is within normal limits. Glucose slightly elevated at 235. The chest x-ray is showing bilateral pulmonary infiltrates mainly involving the left lung and or significantly in the right upper lobe area. The patient is known to have COPD/asthma. The patient is also has history of hypothyroidism, hyperlipidemia and gout. She has history of hiatal hernia.. She is on Decadron 6 mg by mouth daily. She is on no DVT prophylaxis is receiving 40 mg of Lovenox her d-dimer level is at 0.36. On 11/22/2020 patient seen in follow-up in intensive care unit. She is awake and alert, oriented 3, she is currently on BiPAP support with pressures of 14/5 and FiO2 of 100%, and her SpO2 is a 99%. Patient states she doesn't feel significantly more short of breath, however she tachypneic with a respiratory rate of 28 BPM, she has been febrile T-max of 10 1F, her pro-calcitonin came back elevated at 1.28 suggesting possibility of bacterial infection. Today we started her on Remdesivir, today's date to off treatment, her inflammatory markers are trending up, LDH is up to 1940, CRP is 143.6, d-dimer is 0.78, and is on prophylactic dose of Lovenox 40 mg daily, electrolytes and renal profile are unremarkable. O'Christiano is 9.2, hemoglobin is 11, platelet count is 322, neutrophils is 8.3, and in lymphocyte count is 0.5. Patient is on day 2 of high-dose IV steroids 20 mg daily. Patient is awake and alert, oriented 3, yesterday she reversed her CODE STATUS, from DO NOT RESUSCITATE to full code. On 11/23/2020 patient seen in follow-up in the intensive care unit, she remains on BiPAP support, has been very much dependent on it, and he desaturates rapidly even for short periods when the BiPAP mask is removed to give the patient oral medications, current BiPAP settings of 14/60 and FiO2 of 100%, her pulse ox is 93%. Awake and alert, she is oriented 3, she states her breathing is stable as long as she does not move and lays very still in bed. She is complaining of a dry cough, no chest discomfort, no palpitations. She is in sinus mechanism, bradycardic with a rate of 55 BPM, blood pressure is 116/66, not on any vasopressor support, her current IV fluids are 0.9 normal saline at a rate of 20 ML per hour. Patient's pattern has improved, T-max in last 24 hours 99.5F. Urinalysis was sent and shows no signs of infection, blood cultures will be sent today, last pro calcitonin yesterday was 1.29, repeat pro calcitonin has been sent and pending at this time, patient was empirically placed on azithromycin and Rocephin. Maintenance on high-dose IV steroids currently with Decadron 20 mg IV on the daily basis. Absent been reviewed, her d-dimer has trended up, and is at 5.13 today, her Lovenox dose will be adjusted 0.5 mg/kg of body weight twice daily, LDH is down slightly, 1670, CRP is relatively stable at 140.5. Electronic are within normal limits, patient is mildly prerenal, BUN is 30 creatinine 0.74, she also remains on oral dose of Lasix and she has had very limited oral intake. She has only been able to take one or 2 sips of oral liquids and she states things do not taste right. White blood cell count is 6.5, hemoglobin is 10.5. His chest x-ray has been reviewed and diffuse increasing groundglass opacities. I discussed the patient's CODE STATUS with her, and she is agreeable to CPR, intubation, defibrillation, CODE STATUS will be changed to full code On 11/22/20012020, patient is being seen for a follow-up. The patient is currently still on a BiPAP at a pressure of 14/6 cm of water with an FiO2 of 100%. Her minute ventilation is around 18-20 L per minute and the patient's respiratory rate is in the low 30s. She is feeling slightly better. She is able to speaks with a BiPAP mask. She is afebrile. The chest x-ray remains unchanged and the patient continues to have diffuse but the pulmonary infiltrates consistent with code 19 related pneumonia. The patient is awake and alert pH is following commands and answering questions. Her spirits are still high. She denies having any chest pain. She remains in a normal sinus rhythm. Her inflammatory markers are quite abnormal. At LDH from today was 1006 and 41, and her CRP was 59. Note that the CRP level was slightly lower. The pro- calcitonin level from yesterday was 0.18. CPKs nonelevated and a triglyceride level is at 154. The patient has a d-dimer of 14.8. She remains on Lovenox at a dose of 40 mg subcu every 12 hours which is in the order of 0.5 mg per KG every 12 hours. In terms of treatment, the patient remains on Decadron 20 mg IV on the daily basis and she is on Remdesivir and she also received 2 doses of Actemra 400 mg IV. Her oral intake was noted to be quite low as the patient is unable to get herself off the BiPAP for oral intake. Based on that, the patient will be given a PICC line today and she'll be started on TPN for nutritional support to maintain her nutritional status. No fever. No chills. Hemodynamically stable. No other issues for now. Her CODE STATUS is full code. On 11/25/2020, I'm seeing the patient for a follow-up. After doing some attempt s to drop down the FiO2, overnight the patient became hypoxic again and she had to be placed back on an FiO2 of 100% with a BiPAP pressure of 14/6 cm of water. Her current respiratory rate is in the order of 22-30 breaths per minute. Minute ventilation is improved compared to yesterday while being on a BiPAP machine. The patient is comfortable. She is tolerating the treatment well. Her d-dimer is up to 30.01. Rest of the inflammatory markers show an LDH level of 1862 and the CRP is down to 40.8. Pro-calcitonin level was at 0.18. The chest x-ray from today still pending. Meanwhile, as far as treatment, the patient has received Lovenox at a dose of 40 mg subcu every 12 hours which is in the order of 0.5 mg per KG every 12 hours. In terms of treatment, the patient remains on Decadron 20 mg IV on the daily basis they #4 and she is on Remdesivir #5 and she also received 2 doses of Actemra 400 mg IV. Meanwhile be also inserted a PICC line in the left upper extremity and the patient was started on TPN for nutritional support. No altered mentation pH is resting comfortably in bed. Is slightly higher since the patient was started on TPN and septal 187 and the will going to put this patient on sliding scale blood sugar coverage. Any for 2020, the patient remains in high spirits. Although BiPAP dependent, she seems to be awake and alert and breathing okay. She is still tachypneic with a respiratory rate in the high 20s low 30s. Minute ventilation ranging between 18-22 L on a BiPAP at a pressure of 14/6 cm of water. FiO2 was weaned down to 70% and the patient remains on high dose Decadron 20 mg IV. Inflammatory markers show a CRP level of 22 which is lower, LDH of 1776 which is lower, and her d-dimer is 23.4 which is also lower. She is awake and alert and following commands pH is receiving TPN for nutritional support. She is on insulin subcu every 4 hours per sliding scale for blood sugar control. No nausea. No vomiting. No diarrhea. No signs of any fluid overload. TPN is running at the rate of 45 mL an hour. IV fluids is running at the rate of 50 mL an hour. Meanwhile, as far as treatment, the patient has received Lovenox at a dose of 40 mg subcu every 12 hours which is in the order of 0.5 mg per KG every 12 hours. In terms of treatment, the patient remains on Decadron 20 mg IV on the daily basis they #5 and she is on Remdesivir #5 and she also received 2 doses of Actemra 400 mg IV. Objective - Vital Signs Vital signs: Vital Signs Temp 96.9 F L 11/26/20 04:00 Pulse 53 L 11/26/20 07:00 Resp 30 H 11/26/20 07:00 BP 117/57 11/26/20 07:00 Pulse Ox 95 11/26/20 07:00 Intake & Output 11/25/20 11/26/20 11/26/20 18:59 06:59 18:59 Intake Total 1565 1435 Output Total 1060 610 Balance 505 825 Weight 85.6 kg Intake: IV 1505 1235 Mvi, Adult No.4 with Vit 270 K 10 ml Trace (Conc-1Ml/ Dose) 1 ml In Amino Acid 5%-D20w+Lytes*E* 1,000 ml @ 30 mls/hr IV .Q24H [facility] Rx#:[id number] Mvi, Adult No.4 with Vit 135 585 K 10 ml Trace (Conc-1Ml/ Dose) 1 ml In Amino Acid 5%-D20w+Lytes*E* 1,000 ml @ 45 mls/hr IV .[id number] [facility] Rx#:[id number] Remdesivir 100 mg In 500 Sodium Chloride 0.9% 250 ml @ 250 mls/hr IVPB DAILY@1200 [facility] Rx#: [id number] Sodium Chloride 0.9% 1, 600 650 000 ml @ 50 mls/hr IV . Q20H [facility] Rx#:[id number] Oral 60 200 Output: Urine 1060 610 Other: Voiding Method Indwelling Catheter Indwelling Catheter # Bowel Movements 1 - Exam GENERAL EXAM: Alert, pleasant, 60-year-old white female on the BiPAP support with pressures of 14/6% FiO2 of 100% currently satting 95% and FiO2 has been dropped to 80%, with respiratory rate at 28 comfortable in no apparent distress. HEAD: Normocephalic/atraumatic. EYES: Normal reaction of pupils, equal size. Conjunctiva pink, sclera white. NOSE: Clear with pink turbinates. THROAT: No erythema or exudates. NECK: No masses, no JVD, no thyroid enlargement, no adenopathy. CHEST: No chest wall deformity. Symmetrical expansion. LUNGS: Equal air entry with diffuse crackles CVS: Regular rate and rhythm, normal S1 and S2, no gallops, no murmurs, no rubs ABDOMEN: Soft, nontender. No hepatosplenomegaly, normal bowel sounds, no guarding or rigidity. EXTREMITIES: No clubbing, no edema, no cyanosis, 2+ pulses and upper and lower extremities. MUSCULOSKELETAL: Muscle strength and tone normal. SPINE: No scoliosis or deformity SKIN: No rashes CENTRAL NERVOUS SYSTEM: Alert and oriented -3. No focal deficits, tone is normal in all 4 extremities. PSYCHIATRIC: Alert and oriented -3. Appropriate affect. Intact judgment and insight. - Labs CBC & Chem 7: 11/26/20 03:40 11/26/20 03:40 Labs: Abnormal Lab Results - Last 24 Hours (Table) 11/25/20 11/25/20 11/25/20 Range/Units 12:08 18:22 23:18 WBC (3.8-10.6) k/uL RBC (3.80-5.40) m/uL Hgb (11.4-16.0) gm/dL Hct (34.0-46.0) % Neutrophils # (1.3-7.7) k/uL Lymphocytes # (1.0-4.8) k/uL D-Dimer (<0.60) mg/L FEU Sodium (137-145) mmol/L Chloride (98-107) mmol/L BUN (7-17) mg/dL Glucose (74-99) mg/dL POC Glucose (mg/dL) 143 H 194 H 245 H (75-99) mg/dL Magnesium (1.6-2.3) mg/dL Lactate Dehydrogenase (313-618) U/L C-Reactive Protein (<10.0) mg/L Total Protein (6.3-8.2) g/dL Albumin (3.5-5.0) g/dL 11/26/20 11/26/20 11/26/20 Range/Units 03:40 03:40 03:40 WBC 11.9 H (3.8-10.6) k/uL RBC 3.58 L (3.80-5.40) m/uL Hgb 10.1 L (11.4-16.0) gm/dL Hct 32.1 L (34.0-46.0) % Neutrophils # 10.3 H (1.3-7.7) k/uL Lymphocytes # 0.7 L (1.0-4.8) k/uL D-Dimer 23.42 H (<0.60) mg/L FEU Sodium 136 L (137-145) mmol/L Chloride 108 H (98-107) mmol/L BUN 21 H (7-17) mg/dL Glucose 165 H (74-99) mg/dL POC Glucose (mg/dL) (75-99) mg/dL Magnesium 2.4 H (1.6-2.3) mg/dL Lactate Dehydrogenase 1776 H (313-618) U/L C-Reactive Protein 22.8 H (<10.0) mg/L Total Protein 4.5 L (6.3-8.2) g/dL Albumin 2.3 L (3.5-5.0) g/dL 11/26/20 Range/Units 03:41 WBC (3.8-10.6) k/uL RBC (3.80-5.40) m/uL Hgb (11.4-16.0) gm/dL Hct (34.0-46.0) % Neutrophils # (1.3-7.7) k/uL Lymphocytes # (1.0-4.8) k/uL D-Dimer (<0.60) mg/L FEU Sodium (137-145) mmol/L Chloride (98-107) mmol/L BUN (7-17) mg/dL Glucose (74-99) mg/dL POC Glucose (mg/dL) 176 H (75-99) mg/dL Magnesium (1.6-2.3) mg/dL Lactate Dehydrogenase (313-618) U/L C-Reactive Protein (<10.0) mg/L Total Protein (6.3-8.2) g/dL Albumin (3.5-5.0) g/dL Microbiology - Last 24 Hours (Table) 11/23/20 08:38 Blood Culture - Preliminary Blood No Growth after 48 hours Assessment and Plan Plan: 1 acute Covid 19 related pneumonia with bilateral pulmonary infiltrates most significant in the right upper lobe and the left lung seems to be diffusely infiltrated. The patient remains on BiPAP for respiratory support. The patient is at a pressure of 14/6 cm of water with an FiO2 is down to 70 %. As stated that the patient is being treated with a combination of Decadron 20 mg IV day #5 today, she received Remdesivir #5 days, and she also received Actemra regarding her ongoing Covid 19 related pneumonia.. Inflammatory markers are still elevated and the numbers are improving on today's evaluation. I'm going to reduce day Decadron down to 10 mg daily. I'm going to keep the Lovenox for now. Continue TPN for nutritional support. Wean down the FiO2 down to 60%. May consider high flow oxygen either later on today or tomorrow depending on her progress. 2 acute hypoxic respiratory failure secondary to above 3 chronic persistent bronchial asthma with an FEV1 of 82-87% on outpatient basis maintained on Symbicort 4 steroid-induced hyperglycemia, current blood sugars are stable. Monitor the blood sugar following initiation of TPN and watch for any significant hypoglycemia. 5 hypertension 6 hypothyroidism 7 Osteoarthritis and gout 8 Peripheral neuropathy involving lower extremities 9 Peripheral vascular disease 10 Chronic normocytic anemia 11 More than [id number] smoking history patient is currently an ex-smoker hiatal hernia with reflux Plan The patient is currently on BiPAP and will continue the BiPAP for now the FiO2 down to 60% and may consider high flow oxygen at a later stage Decadron 10 mg, She received Remdesivir #5 today, and she also received Actemra. Lovenox for DVT prophylaxis and the patient is being given 0.5 mg per KG every 12 hours based on elevated d-dimer Monitor inflammatory markers improving Monitor d-dimer, improving Utilizing a combination of zinc, vitamin C, vitamin D, melatonin and Pepcid Monitor oxygenation and repeat the chest x-ray with the next 24 hours PICC line the patient is currently receiving TPN for nutritional support TPN for nutritional support and appropriate the recommendation was given as sliding scale blood sugar coverage, every 4 hours slight scale coverage We'll continue to follow. I am offering nutrition through TPN. We'll monitor the blood sugar. We'll monitor the chest x-ray. Monitor inflammatory markers. D-dimer still elevated. ICU for now. Condition is still critical. Critically care evaluation, 30 min Time with Patient: Greater than 30
[2020-11-26 09:14] LABS: Ferritin 884.4 ng/mL (10.0-291.0)
[2020-11-26] MEDS: ZINC SULFATE 220 MG CAP PO SCH (09:29)
[2020-11-26] MEDS: ENOXAPARIN 40 MG/0.4 ML SYRINGE SQ SCH ×2 (09:29→20:13)
[2020-11-26] MEDS: FAMOTIDINE 20 MG/2 ML VIAL IV SCH ×2 (09:29→20:12)
[2020-11-26] MEDS: COLCHICINE 0.6 MG EACH PO SCH (09:30)
[2020-11-26] MEDS: dexAMETHasone 4 MG TAB PO SCH (09:30)
[2020-11-26] MEDS: GABAPENTIN 100 MG CAP PO SCH ×2 (09:30→13:28)
[2020-11-26] MEDS: ASCORBIC ACID 500 MG TAB PO SCH (09:30)
[2020-11-26] MEDS: SUCRALFATE 1 GM TAB PO SCH ×4 (09:30→21:20)
[2020-11-26] MEDS: allopurinoL 300 MG TAB PO SCH (09:30)
[2020-11-26 09:42] LABS: Glucose,Whole Blood 132 mg/dL (75-99)
[2020-11-26] MEDS: MVI, ADULT NO.4 WITH VIT K 10 ML, TRACE (CONC-1ML/DOSE) 1 ML in AMINO ACID 5%-D20W+LYTE... IV SCH ×3 (12:12)
[2020-11-26 12:41] LABS: Glucose,Whole Blood 108 mg/dL (75-99)
--- NOTE | 2020-11-26 16:33 | P.PN ---
Subjective Progress Note Date: 11/26/20 Principal diagnosis: COVID 19 related pneumonia and hypoxemia Acute hypoxic respiratory failure 60-year-old female came in with compensative shortness of breath found to have very low oxygen saturations patient was diagnosed with Covid 19 about 3 days ago patient had having symptoms for about a week. Patient was also company of fever chills patient has low-grade fever here. Patient was seen in [facility] subsequently transferred here patient is presently on 15 L of oxygen. Patient does have history of COPD. Patient was started on Decadron. Pulmonary was consulted. She was complaining of for cough without any significant sputum production. 11/24/2020, patient is seen for a follow-up. The patient is currently still on a BiPAP with an FiO2 of 100%; feeling slightly better; remains afebrile. The chest x-ray remains unchanged and the patient continues to have diffuse but the pulmonary infiltrates consistent with code 19 related pneumonia. Her inflammatory markers are quite abnormal. At LDH from today was 1006 and 41, and her CRP was 59. Note that the CRP level was slightly lower. The pro-calcitonin level from yesterday was 0.18. CPKs nonelevated and a triglyceride level is at 154. The patient has a d-dimer of 14.8. She remains on Lovenox at a dose of 40 mg subcu every 12 hours which is in the order of 0.5 mg per KG every 12 hours. In terms of treatment, the patient remains on Decadron 20 mg IV on the daily basis and she is on Remdesivir and she also received 2 doses of Actemra 400 mg IV. Her oral intake was noted to be quite low as the patient is unable to get herself off the BiPAP for oral intake. Based on that, the patient will be given a PICC line today and she'll be started on TPN for nutritional support to maintain her nutritional status. No fever. No chills. Hemodynamically stable. No other issues for now. Her CODE STATUS is full code. 11/25/2020 patient is seen and evaluated in room for a follow-up; patient became hypoxic again and she had to be placed back on an FiO2 of 100% with a BiPAP pressure of 14/6 cm of water. Her current respiratory rate is in the order of 22-30 breaths per minute. The patient is comfortable. She is tolerating the treatment well. Laboratory review shows d-dimer is up to 30.01. Rest of the inflammatory markers show an LDH level of 1862 and the CRP is down to 40.8. Pro-calcitonin level was at 0.18. patient has received Lovenox at a dose of 40 mg subcu every 12 hours which is in the order of 0.5 mg per KG every 12 hours. In terms of treatment, the patient remains on Decadron 20 mg IV on the daily basis they #4 and she is on Remdesivir #5 and she also received 2 doses of Actemra 400 mg IV. Meanwhile be also inserted a PICC line in the left upper extremity and the patient was started on TPN for nutritional support. No altered mentation pH is resting comfortably in bed. Is slightly higher since the patient was started on TPN and septal 187 and the will going to put this patient on sliding scale blood sugar coverage. 11/26/2020 Patient remains in ICU and remains awake and alert; currently on BiPAP; FiO2 was weaned down to 70% with stable O2 saturation; patient remains on high-dose Decadron in form of 20 mg IV daily; inflammatory markers slowly trending down including CRP of 22, LDH of 1776, d-dimer 23.4 Patient is currently on TPN for nutrition at a rate of 45 hoursalong with blood glucose monitoring every 4 hours with insulin sliding scale; remains stable on IV fluids at 50 mL per hour Patient is being followed by pulmonology service and recommended to continue with Lovenox 40 mg subcu every 12 hours, Decadron 20 mg IV daily along with completing REM treatment; patient has received 2 doses of Actemra 400 mg IV Objective - Vital Signs Vital signs: Vital Signs Temp 97.8 F 11/26/20 08:00 Pulse 52 L 11/26/20 14:00 Resp 27 H 11/26/20 14:00 BP 115/64 11/26/20 14:00 Pulse Ox 86 L 11/26/20 14:00 Intake & Output 11/25/20 11/26/20 11/26/20 18:59 06:59 18:59 Intake Total 1565 1435 1509 Output Total 1060 610 525 Balance 505 825 984 Weight 85.6 kg Intake: IV 1505 1235 570 Mvi, Adult No.4 with Vit 270 K 10 ml Trace (Conc-1Ml/ Dose) 1 ml In Amino Acid 5%-D20w+Lytes*E* 1,000 ml @ 30 mls/hr IV .Q24H [facility] Rx#:[id number] Mvi, Adult No.4 with Vit 135 585 270 K 10 ml Trace (Conc-1Ml/ Dose) 1 ml In Amino Acid 5%-D20w+Lytes*E* 1,000 ml @ 45 mls/hr IV .[id number] [facility] Rx#:[id number] Remdesivir 100 mg In 500 Sodium Chloride 0.9% 250 ml @ 250 mls/hr IVPB DAILY@1200 [facility] Rx#: [id number] Sodium Chloride 0.9% 1, 600 650 300 000 ml @ 50 mls/hr IV . Q20H [facility] Rx#:[id number] Intake, IV Titration 939 Amount Mvi, Adult No.4 with Vit 939 K 10 ml Trace (Conc-1Ml/ Dose) 1 ml In Amino Acid 5%-D20w+Lytes*E* 1,000 ml @ 45 mls/hr IV .[id number] [facility] Rx#:[id number] Oral 60 200 Output: Urine 1060 610 525 Other: Voiding Method Indwelling Catheter Indwelling Catheter Indwelling Catheter # Bowel Movements 1 1 - Exam GENERAL: The patient is alert and oriented x3, not in any acute distress. Well developed, well nourished. HEENT: Pupils are round and equally reacting to light. EOMI. No scleral icterus. No conjunctival pallor. Normocephalic, atraumatic. No pharyngeal erythema. No thyromegaly. CARDIOVASCULAR: S1 and S2 present. No murmurs, rubs, or gallops. PULMONARY: Diffuse bilateral rhonchi without any significant wheezing fairly good air entry into bilateral lung ruiz ABDOMEN: Soft, nontender, nondistended, normoactive bowel sounds. No palpable organomegaly. MUSCULOSKELETAL: No joint swelling or deformity. EXTREMITIES: No cyanosis, clubbing, patient does have some pedal edema NEUROLOGICAL: Gross neurological examination did not reveal any focal deficits. - Labs CBC & Chem 7: 11/26/20 03:40 11/26/20 14:23 Labs: Abnormal Lab Results - Last 24 Hours (Table) 11/25/20 11/25/20 11/26/20 Range/Units 18:22 23:18 03:40 WBC 11.9 H (3.8-10.6) k/uL RBC 3.58 L (3.80-5.40) m/uL Hgb 10.1 L (11.4-16.0) gm/dL Hct 32.1 L (34.0-46.0) % Neutrophils # 10.3 H (1.3-7.7) k/uL Lymphocytes # 0.7 L (1.0-4.8) k/uL D-Dimer (<0.60) mg/L FEU Sodium (137-145) mmol/L Chloride (98-107) mmol/L BUN (7-17) mg/dL Glucose (74-99) mg/dL POC Glucose (mg/dL) 194 H 245 H (75-99) mg/dL Magnesium (1.6-2.3) mg/dL Ferritin (10.0-291.0) ng/mL Lactate Dehydrogenase (313-618) U/L C-Reactive Protein (<10.0) mg/L Total Protein (6.3-8.2) g/dL Albumin (3.5-5.0) g/dL 11/26/20 11/26/20 11/26/20 Range/Units 03:40 03:40 03:41 WBC (3.8-10.6) k/uL RBC (3.80-5.40) m/uL Hgb (11.4-16.0) gm/dL Hct (34.0-46.0) % Neutrophils # (1.3-7.7) k/uL Lymphocytes # (1.0-4.8) k/uL D-Dimer 23.42 H (<0.60) mg/L FEU Sodium 136 L (137-145) mmol/L Chloride 108 H (98-107) mmol/L BUN 21 H (7-17) mg/dL Glucose 165 H (74-99) mg/dL POC Glucose (mg/dL) 176 H (75-99) mg/dL Magnesium 2.4 H (1.6-2.3) mg/dL Ferritin 884.4 H (10.0-291.0) ng/mL Lactate Dehydrogenase 1776 H (313-618) U/L C-Reactive Protein 22.8 H (<10.0) mg/L Total Protein 4.5 L (6.3-8.2) g/dL Albumin 2.3 L (3.5-5.0) g/dL 11/26/20 11/26/20 Range/Units 09:40 12:39 WBC (3.8-10.6) k/uL RBC (3.80-5.40) m/uL Hgb (11.4-16.0) gm/dL Hct (34.0-46.0) % Neutrophils # (1.3-7.7) k/uL Lymphocytes # (1.0-4.8) k/uL D-Dimer (<0.60) mg/L FEU Sodium (137-145) mmol/L Chloride (98-107) mmol/L BUN (7-17) mg/dL Glucose (74-99) mg/dL POC Glucose (mg/dL) 132 H 108 H (75-99) mg/dL Magnesium (1.6-2.3) mg/dL Ferritin (10.0-291.0) ng/mL Lactate Dehydrogenase (313-618) U/L C-Reactive Protein (<10.0) mg/L Total Protein (6.3-8.2) g/dL Albumin (3.5-5.0) g/dL Microbiology - Last 24 Hours (Table) 11/23/20 08:38 Blood Culture - Preliminary Blood No Growth after 72 hours Assessment and Plan Assessment: -Acute hypoxic respiratory failure: Requiring BiPAP.. Secondary to Covid 19 pneumonia patient was started on Decadron started on the GI prophylaxis as well as Lovenox for DVT prophylaxis. Started on remdesivir. -COPD with mild acute exacerbation secondary to Covid 19. Pulmonology was consulted -Hyperlipidemia -Hypothyroidism -History of gout for which she'll patient is on colchicine which will be continued -Peripheral edema: Due to probably chronic venous stasis and patient will be resumed on Lasix oral. -Hiatal hernia with gastroesophageal reflux disease patient was resumed on Prilosec CODE STATUS; full code
[2020-11-26 16:46] LABS: Glucose,Whole Blood 147 mg/dL (75-99)
[2020-11-26 20:03] LABS: Glucose,Whole Blood 172 mg/dL (75-99)
[2020-11-26] MEDS: MELATONIN 3 MG TABLET PO SCH (20:12)
[2020-11-26] MEDS: THEOPHYLLINE 24 HOUR 300 MG CAP.ER.24H PO SCH (20:12)
[2020-11-26] MEDS: MONTELUKAST 10 MG TAB PO SCH (20:12)
[2020-11-26] MEDS: PRAMIPEXOLE 0.5 MG TAB PO SCH (20:12)
[2020-11-26] MEDS: GABAPENTIN 300 MG CAP PO SCH (20:12)
[2020-11-26] MEDS: ATORVASTATIN 40 MG TAB PO SCH (20:12)
[2020-11-26 23:15] LABS: Glucose,Whole Blood 194 mg/dL (75-99)
[2020-11-27] MEDS: SODIUM CHLORIDE 0.9% 1,000 ML IV SCH ×2 (00:25→16:15)
[2020-11-27 04:08] LABS: African American GFR (CKD) >90 (>60 ml/min/1.73 sqM); Anion Gap 0 mmol/L; Blood Urea Nitrogen 21 mg/dL (7-17); C Reactive Protein 9.7 mg/L (<10.0); Calcium 8.4 mg/dL (8.4-10.2); Carbon Dioxide 27 mmol/L (22-30); Chloride 110 mmol/L (98-107); Glucose 191 mg/dL (74-99); LDH 1784 U/L (313-618); Magnesium 2.4 mg/dL (1.6-2.3); Non-African American GFR(CKD) >90 (>60 ml/min/1.73 sqM); Phosphorus 3.7 mg/dL (2.5-4.5); Potassium 4.1 mmol/L (3.5-5.1); Sodium 137 mmol/L (137-145)
[2020-11-27] MEDS: INSULIN ASPART (NovoLOG) 100 UNIT/ML VIAL SQ SCH ×5 (04:58→19:46)
[2020-11-27 05:05] LABS: Basophils # (A) 0.1 k/uL (0-0.2); Basophils % (A) 1 %; Eosinophils # (A) 0.1 k/uL (0-0.7); Eosinophils % (A) 0 %; HGB 10.7 gm/dL (11.4-16.0); Hypochromasia Slight; Lymphocytes # (A) 0.6 k/uL (1.0-4.8); Lymphocytes % (A) 4 %; MCH 28.9 pg (25.0-35.0); MCHC 32.4 g/dL (31.0-37.0); MCV 89.3 fL (80.0-100.0); Mean Platelet Volume 7.8; Monocytes # (A) 0.5 k/uL (0-1.0); Monocytes % (A) 4 %; Neutrophils # (A) 11.7 k/uL (1.3-7.7); Neutrophils % (A) 90 %; Platelet Count 280 k/uL (150-450); RDW 15.4 % (11.5-15.5); WBC 13.1 k/uL (3.8-10.6)
[2020-11-27] MEDS: LEVOTHYROXINE 75 MCG TAB PO SCH (06:08)
[2020-11-27] MEDS: ALBUTEROL HFA INHALER INHALATION SCH ×4 (07:14→20:03)
[2020-11-27] MEDS: SYMBICORT 160-4.5 MCG INHALER INHALATION SCH ×2 (07:14→20:11)
[2020-11-27] MEDS: TIOTROPIUM 2.5 MCG INHALER INHALATION SCH (07:19)
--- NOTE | 2020-11-27 07:19 | XR ---
EXAMINATION TYPE: XR chest 1V portable DATE OF EXAM: 11/27/2020 Comparison: 11/26/2020 Clinical History: 60-year-old female CoVID Findings: Left PICC tip in the right atrium. Heart upper limits of normal in size. Diffuse interstitial groundg lass opacities persist with mild patchy basilar opacities. No significant change. No sizable effusion . Impression: Diffuse interstitial infiltrates and mild patchy bibasilar infiltrates persist without significant ch tushar.
[2020-11-27 09:07] LABS: Glucose,Whole Blood 120 mg/dL (75-99)
[2020-11-27] MEDS: FAMOTIDINE 20 MG/2 ML VIAL IV SCH ×2 (09:48→19:46)
[2020-11-27] MEDS: ASCORBIC ACID 500 MG TAB PO SCH (09:48)
[2020-11-27] MEDS: ZINC SULFATE 220 MG CAP PO SCH (09:49)
[2020-11-27] MEDS: GABAPENTIN 100 MG CAP PO SCH ×2 (09:49→12:50)
[2020-11-27] MEDS: SUCRALFATE 1 GM TAB PO SCH ×4 (09:49→19:45)
[2020-11-27] MEDS: allopurinoL 300 MG TAB PO SCH (09:49)
[2020-11-27] MEDS: COLCHICINE 0.6 MG EACH PO SCH ×2 (09:49→19:46)
[2020-11-27] MEDS: DEXAMETHASONE SOD PHOSPHATE 10 MG/ML 1 ML VIAL IV SCH (09:49)
[2020-11-27] MEDS: ENOXAPARIN 40 MG/0.4 ML SYRINGE SQ SCH ×2 (09:49→19:46)
[2020-11-27] MEDS: MVI, ADULT NO.4 WITH VIT K 10 ML, TRACE (CONC-1ML/DOSE) 1 ML in AMINO ACID 5%-D20W+LYTE... IV SCH ×3 (10:27)
[2020-11-27 11:37] LABS: Glucose,Whole Blood 107 mg/dL (75-99)
--- NOTE | 2020-11-27 14:00 | P.PN ---
Subjective Progress Note Date: 11/27/20 Principal diagnosis: Acute hypoxic respiratory failure secondary to covid 19 pneumonitis 60-year-old here patient hospitalized for COVID 19 related pneumonia and hypoxemia. The patient was found to have a low oxygen saturation. She was diagnosed having COVID 19 on 11/20/2020. However, her symptoms started approximately a week prior to that as the patient started having generalized weakness, fever and chills. In the hospital at [place], she was found to be hypoxic and she was placed on 15 L of oxygen by nasal cannula. She was started on Decadron and following that she was transferred to [facility] on 11/20/2020 for further evaluation. On today's evaluation the patient remains on 15 L of oxygen by nasal cannula. Laboratory markers show a LDH of 1482, her CRP is 239, her pro-calcitonin level is at 1.28, her white cell count is at 4.5 and the patient has a lymphopenia with a lymphocyte count of 0.7. The electrolytes all within normal limits. Renal function is within normal limits. Glucose slightly elevated at 235. The chest x-ray is showing bilateral pulmonary infiltrates mainly involving the left lung and or significantly in the right upper lobe area. The patient is known to have COPD/asthma. The patient is also has history of hypothyroidism, hyperlipidemia and gout. She has history of hiatal hernia.. She is on Decadron 6 mg by mouth daily. She is on no DVT prophylaxis is receiving 40 mg of Lovenox her d-dimer level is at 0.36. On 11/25/2020, I'm seeing the patient for a follow-up. After doing some attempts to drop down the FiO2, overnight the patient became hypoxic again and she had to be placed back on an FiO2 of 100% with a BiPAP pressure of 14/6 cm of water. Her current respiratory rate is in the order of 22-30 breaths per minute. Minute ventilation is improved compared to yesterday while being on a BiPAP machine. The patient is comfortable. She is tolerating the treatment well. Her d-dimer is up to 30.01. Rest of the inflammatory markers show an LDH level of 1862 and the CRP is down to 40.8. Pro-calcitonin level was at 0.18. The chest x-ray from today still pending. Meanwhile, as far as treatment, the patient has received Lovenox at a dose of 40 mg subcu every 12 hours which is in the order of 0.5 mg per KG every 12 hours. In terms of treatment, the patient remains on Decadron 20 mg IV on the daily basis they #4 and she is on Remdesivir #5 and she also received 2 doses of Actemra 400 mg IV. Meanwhile be also inserted a PICC line in the left upper extremity and the patient was started on TPN for nutritional support. No altered mentation pH is resting comfortably in bed. Is slightly higher since the patient was started on TPN and septal 187 and the will going to put this patient on sliding scale blood sugar coverage. 11/26/2020, the patient remains in high spirits. Although BiPAP dependent, she seems to be awake and alert and breathing okay. She is still tachypneic with a respiratory rate in the high 20s low 30s. Minute ventilation ranging between 18-22 L on a BiPAP at a pressure of 14/6 cm of water. FiO2 was weaned down to 70% and the patient remains on high dose Decadron 20 mg IV. Inflammatory markers show a CRP level of 22 which is lower, LDH of 1776 which is lower, and her d-dimer is 23.4 which is also lower. She is awake and alert and following commands pH is receiving TPN for nutritional support. She is on insulin subcu every 4 hours per sliding scale for blood sugar control. No nausea. No vomiting. No diarrhea. No signs of any fluid overload. TPN is running at the rate of 45 mL an hour. IV fluids is running at the rate of 50 mL an hour. Meanwhile, as far as treatment, the patient has received Lovenox at a dose of 40 mg subcu every 12 hours which is in the order of 0.5 mg per KG every 12 hours. In terms of treatment, the patient remains on Decadron 20 mg IV on the daily basis they #5 and she is on Remdesivir #5 and she also received 2 doses of Actemra 400 mg IV. Reevaluated today on , patient remains on BiPAP, she is on IPAP of 12 and EPAP of 6, FiO2 remains at 75%. Patient desaturates at night, seems to do well during the day. Patient is still on the Covid 19 cocktail. She remains on Decadron, she is on Lovenox, she received remdesivir, and she also received actemra. Patient is on colchicine, and I went ahead and double the dose to 0.6 mg twice a day. Her d-dimer remains elevated. But seems to be coming down low. Chest x-ray continues to show bilateral infiltrates. Patient remains marginal at best. CBC is relatively normal electroencephalogram normal renal profile is normal. LDH is 1784, C-reactive protein is 9.7. Objective - Vital Signs Vital signs: Vital Signs Temp 97.1 F L 11/27/20 08:00 Pulse 53 L 11/27/20 12:00 Resp 23 11/27/20 12:00 BP 111/57 11/27/20 12:00 Pulse Ox 90 L 11/27/20 12:00 Intake & Output 11/26/20 11/27/20 11/27/20 18:59 06:59 18:59 Intake Total 2079 1195 1476.25 Output Total 940 490 265 Balance 4773 491 1249.25 Weight 86.2 kg 86.2 kg Intake: IV 1140 1045 475 Mvi, Adult No.4 with Vit 540 495 225 K 10 ml Trace (Conc-1Ml/ Dose) 1 ml In Amino Acid 5%-D20w+Lytes*E* 1,000 ml @ 45 mls/hr IV .[id number] [facility] Rx#:[id number] Sodium Chloride 0.9% 1, 600 550 250 000 ml @ 50 mls/hr IV . Q20H [facility] Rx#:[id number] Intake, IV Titration 939 1001.25 Amount Mvi, Adult No.4 with Vit 939 1001.25 K 10 ml Trace (Conc-1Ml/ Dose) 1 ml In Amino Acid 5%-D20w+Lytes*E* 1,000 ml @ 45 mls/hr IV .[id number] [facility] Rx#:[id number] Oral 150 Output: Urine 940 490 265 Other: Voiding Method Indwelling Catheter Indwelling Catheter # Bowel Movements 1 - Exam GENERAL EXAM: Revealed 60-year-old female on BiPAP, in no distress. HEENT: Head is atraumatic, normocephalic, PERRLA, EOMI, nonicteric sclerae. Moist mucous membranes. No neck masses no JVD no stridor CHEST: No chest wall deformity. Symmetrical expansion. LUNGS: Fine crackles at the bases. CVS: Regular rate and rhythm, normal S1 and S2, no gallops, no murmurs, no rubs ABDOMEN: Soft, nontender. No hepatosplenomegaly, normal bowel sounds, no guarding or rigidity. EXTREMITIES: No clubbing, no edema, no cyanosis, 2+ pulses and upper and lower extremities. MUSCULOSKELETAL: Muscle strength and tone normal. SPINE: No scoliosis or deformity SKIN: No rashes CENTRAL NERVOUS SYSTEM: Alert and oriented -3. No focal deficits, tone is normal in all 4 extremities. PSYCHIATRIC: Alert and oriented -3. Appropriate affect. Intact judgment and insight. - Labs CBC & Chem 7: 11/27/20 03:28 11/27/20 03:28 Labs: Abnormal Lab Results - Last 24 Hours (Table) 11/26/20 11/26/20 11/26/20 Range/Units 16:44 20:02 23:14 WBC (3.8-10.6) k/uL RBC (3.80-5.40) m/uL Hgb (11.4-16.0) gm/dL Hct (34.0-46.0) % Neutrophils # (1.3-7.7) k/uL Lymphocytes # (1.0-4.8) k/uL D-Dimer (<0.60) mg/L FEU Chloride (98-107) mmol/L BUN (7-17) mg/dL Glucose (74-99) mg/dL POC Glucose (mg/dL) 147 H 172 H 194 H (75-99) mg/dL Magnesium (1.6-2.3) mg/dL Lactate Dehydrogenase (313-618) U/L 11/27/20 11/27/20 11/27/20 Range/Units 03:28 03:28 03:28 WBC 13.1 H (3.8-10.6) k/uL RBC 3.70 L (3.80-5.40) m/uL Hgb 10.7 L (11.4-16.0) gm/dL Hct 33.0 L (34.0-46.0) % Neutrophils # 11.7 H (1.3-7.7) k/uL Lymphocytes # 0.6 L (1.0-4.8) k/uL D-Dimer 21.31 H (<0.60) mg/L FEU Chloride 110 H (98-107) mmol/L BUN 21 H (7-17) mg/dL Glucose 191 H (74-99) mg/dL POC Glucose (mg/dL) (75-99) mg/dL Magnesium 2.4 H (1.6-2.3) mg/dL Lactate Dehydrogenase 1784 H (313-618) U/L 11/27/20 11/27/20 Range/Units 09:06 11:36 WBC (3.8-10.6) k/uL RBC (3.80-5.40) m/uL Hgb (11.4-16.0) gm/dL Hct (34.0-46.0) % Neutrophils # (1.3-7.7) k/uL Lymphocytes # (1.0-4.8) k/uL D-Dimer (<0.60) mg/L FEU Chloride (98-107) mmol/L BUN (7-17) mg/dL Glucose (74-99) mg/dL POC Glucose (mg/dL) 120 H 107 H (75-99) mg/dL Magnesium (1.6-2.3) mg/dL Lactate Dehydrogenase (313-618) U/L Microbiology - Last 24 Hours (Table) 11/23/20 08:38 Blood Culture - Preliminary Blood No Growth after 96 hours Assessment and Plan Assessment: Impression: Acute hypoxic respiratory failure secondary to covid 19 pneumonitis. Remains on BiPAP. FiO2 is 75%. Remains on Decadron grams IV push daily. Received remdesivir and actemra. She is already on colchicine and I increased the dose today. She is also on Lovenox. Remains on TPN for nutritional support. Chronic persistent bronchial asthma. Chronic gout. Peripheral neuropathy Peripheral vessel occlusive disease Chronic normocytic anemia Ex-smoker Hiatal hernia with reflux. Hypertension. Steroids induced hyperglycemia. Recommendation: Continue BiPAP, and hopefully transition down to high flow nasal cannula with time. Continue present supportive care measures. Continue GI and DVT prophylaxis. Continue colchicine but the dose was doubled. Continue the Covid 19 cocktail. Continue TPN via PICC line. Continue to monitor in the ICU for now. Prognosis remains guarded. We'll continue to follow. Critical care time is 32 minutes Time with Patient: Greater than 30
[2020-11-27] MEDS: FAT EMULSION 20% 250 ML in EMPTY BAG 1 BAG IV SCH (16:14)
--- NOTE | 2020-11-27 16:26 | P.PN ---
Subjective COVID 19 related pneumonia and hypoxemia Acute hypoxic respiratory failure 60-year-old female came in with compensative shortness of breath found to have very low oxygen saturations patient was diagnosed with Covid 19 about 3 days ago patient had having symptoms for about a week. Patient was also company of fever chills patient has low-grade fever here. Patient was seen in [facility] subsequently transferred here patient is presently on 15 L of oxygen. Patient does have history of COPD. Patient was started on Decadron. Pulmonary was consulted. She was complaining of for cough without any significant sputum production. 11/24/2020, patient is seen for a follow-up. The patient is currently still on a BiPAP with an FiO2 of 100%; feeling slightly better; remains afebrile. The chest x-ray remains unchanged and the patient continues to have diffuse but the pulmonary infiltrates consistent with code 19 related pneumonia. Her inflammatory markers are quite abnormal. At LDH from today was 1006 and 41, and her CRP was 59. Note that the CRP level was slightly lower. The pro-calcitonin level from yesterday was 0.18. CPKs nonelevated and a triglyceride level is at 154. The patient has a d-dimer of 14.8. She remains on Lovenox at a dose of 40 mg subcu every 12 hours which is in the order of 0.5 mg per KG every 12 hours. In terms of treatment, the patient remains on Decadron 20 mg IV on the daily basis and she is on Remdesivir and she also received 2 doses of Actemra 400 mg IV. Her oral intake was noted to be quite low as the patient is unable to get herself off the BiPAP for oral intake. Based on that, the patient will be given a PICC line today and she'll be started on TPN for nutritional support to maintain her nutritional status. No fever. No chills. Hemodynamically stable. No other issues for now. Her CODE STATUS is full code. 11/25/2020 patient is seen and evaluated in room for a follow-up; patient became hypoxic ag ain and she had to be placed back on an FiO2 of 100% with a BiPAP pressure of 14/6 cm of water. Her current respiratory rate is in the order of 22-30 breaths per minute. The patient is comfortable. She is tolerating the treatment well. Laboratory review shows d-dimer is up to 30.01. Rest of the inflammatory markers show an LDH level of 1862 and the CRP is down to 40.8. Pro-calcitonin level was at 0.18. patient has received Lovenox at a dose of 40 mg subcu every 12 hours which is in the order of 0.5 mg per KG every 12 hours. In terms of treatment, the patient remains on Decadron 20 mg IV on the daily basis they #4 and she is on Remdesivir #5 and she also received 2 doses of Actemra 400 mg IV. Meanwhile be also inserted a PICC line in the left upper extremity and the patient was started on TPN for nutritional support. No altered mentation pH is resting comfortably in bed. Is slightly higher since the patient was started on TPN and septal 187 and the will going to put this patient on sliding scale blood sugar coverage. 11/26/2020 Patient remains in ICU and remains awake and alert; currently on BiPAP; FiO2 was weaned down to 70% with stable O2 saturation; patient remains on high-dose Decadron in form of 20 mg IV daily; inflammatory markers slowly trending down including CRP of 22, LDH of 1776, d-dimer 23.4 Patient is currently on TPN for nutrition at a rate of 45 hoursalong with blood glucose monitoring every 4 hours with insulin sliding scale; remains stable on IV fluids at 50 mL per hour Patient is being followed by pulmonology service and recommended to continue with Lovenox 40 mg subcu every 12 hours, Decadron 20 mg IV daily along with completing REM treatment; patient has received 2 doses of Actemra 400 mg IV. 11/27/2020 Patient remains on BiPAP with FiO2 of around 670%. Patient has some improvement in inflammatory markers. Review of systems: Unable to obtain All inpatient medications were reviewed and appropriate changes in these medications as dictated in the interval history and assessment and plan. Objective - Vital Signs Vital signs: Vital Signs Temp 97.1 F L 11/27/20 08:00 Pulse 58 L 11/27/20 15:00 Resp 27 H 11/27/20 15:00 BP 108/64 11/27/20 15:00 Pulse Ox 87 L 11/27/20 15:00 Intake & Output 11/26/20 11/27/20 11/27/20 18:59 06:59 18:59 Intake Total 1764 1195 1531.25 Output Total 940 490 325 Balance 961 441 2309.25 Weight 86.2 kg 86.2 kg Intake: IV 825 1045 530 Mvi, Adult No.4 with Vit 225 495 180 K 10 ml Trace (Conc-1Ml/ Dose) 1 ml In Amino Acid 5%-D20w+Lytes*E* 1,000 ml @ 45 mls/hr IV .[id number] JEAN CLAUDE Rx#:[id number] Sodium Chloride 0.9% 1, 600 550 350 000 ml @ 50 mls/hr IV . Q20H JEAN CLAUDE Rx#:[id number] Intake, IV Titration 939 1001.25 Amount Mvi, Adult No.4 with Vit 939 1001.25 K 10 ml Trace (Conc-1Ml/ Dose) 1 ml In Amino Acid 5%-D20w+Lytes*E* 1,000 ml @ 45 mls/hr IV .[id number] JEAN CLAUDE Rx#:[id number] Oral 150 Output: Urine 940 490 325 Other: Voiding Method Indwelling Catheter Indwelling Catheter Indwelling Catheter # Bowel Movements 1 - Exam PHYSICAL EXAMINATION: GENERAL: The patient is alert and oriented x3, not in any acute distress. Well developed, well nourished. HEENT: Pupils are round and equally reacting to light. EOMI. No scleral icterus. No conjunctival pallor. Normocephalic, atraumatic. No pharyngeal erythema. No thyromegaly. CARDIOVASCULAR: S1 and S2 present. No murmurs, rubs, or gallops. PULMONARY: There is some rhonchi and wheezing bilaterally ABDOMEN: Soft, nontender, nondistended, normoactive bowel sounds. No palpable organomegaly. MUSCULOSKELETAL: No joint swelling or deformity. EXTREMITIES: No cyanosis, clubbing, patient does have some pedal edema NEUROLOGICAL: Gross neurological examination did not reveal any focal deficits. SKIN: No rashes. Note: Because of COVID 19 isolation, some of the history and physical exam findings are indirect and obtained from nursing staff, and other physician examinations to avoid unnecessary contact with the patient. - Labs CBC & Chem 7: 11/27/20 03:28 11/27/20 03:28 Labs: Abnormal Lab Results - Last 24 Hours (Table) 11/26/20 11/26/20 11/26/20 Range/Units 16:44 20:02 23:14 WBC (3.8-10.6) k/uL RBC (3.80-5.40) m/uL Hgb (11.4-16.0) gm/dL Hct (34.0-46.0) % Neutrophils # (1.3-7.7) k/uL Lymphocytes # (1.0-4.8) k/uL D-Dimer (<0.60) mg/L FEU Chloride (98-107) mmol/L BUN (7-17) mg/dL Glucose (74-99) mg/dL POC Glucose (mg/dL) 147 H 172 H 194 H (75-99) mg/dL Magnesium (1.6-2.3) mg/dL Lactate Dehydrogenase (313-618) U/L 11/27/20 11/27/20 11/27/20 Range/Units 03:28 03:28 03:28 WBC 13.1 H (3.8-10.6) k/uL RBC 3.70 L (3.80-5.40) m/uL Hgb 10.7 L (11.4-16.0) gm/dL Hct 33.0 L (34.0-46.0) % Neutrophils # 11.7 H (1.3-7.7) k/uL Lymphocytes # 0.6 L (1.0-4.8) k/uL D-Dimer 21.31 H (<0.60) mg/L FEU Chloride 110 H (98-107) mmol/L BUN 21 H (7-17) mg/dL Glucose 191 H (74-99) mg/dL POC Glucose (mg/dL) (75-99) mg/dL Magnesium 2.4 H (1.6-2.3) mg/dL Lactate Dehydrogenase 1784 H (313-618) U/L 11/27/20 11/27/20 Range/Units 09:06 11:36 WBC (3.8-10.6) k/uL RBC (3.80-5.40) m/uL Hgb (11.4-16.0) gm/dL Hct (34.0-46.0) % Neutrophils # (1.3-7.7) k/uL Lymphocytes # (1.0-4.8) k/uL D-Dimer (<0.60) mg/L FEU Chloride (98-107) mmol/L BUN (7-17) mg/dL Glucose (74-99) mg/dL POC Glucose (mg/dL) 120 H 107 H (75-99) mg/dL Magnesium (1.6-2.3) mg/dL Lactate Dehydrogenase (313-618) U/L Microbiology - Last 24 Hours (Table) 11/23/20 08:38 Blood Culture - Preliminary Blood No Growth after 96 hours Assessment and Plan Plan: -Acute hypoxic respiratory failure: Still Requiring BiPAP.. Secondary to Covid 19 pneumonia patient was started on Decadron , on the GI prophylaxis as well as Lovenox for DVT prophylaxis. Completed remdesivir and actemra. Was started on colchicine as an anti-inflammatory and patient is on TPN for nutrition -COPD with mild acute exacerbation secondary to Covid 19. Pulmonology following the patient -Hyperlipidemia -Hypothyroidism -History of gout for which she'll patient is on colchicine which will be continued -Peripheral edema improved now -Peripheral vascular disease -Hiatal hernia with gastroesophageal reflux disease patient is on Prilosec CODE STATUS; full code
[2020-11-27 16:28] LABS: Glucose,Whole Blood 152 mg/dL (75-99)
[2020-11-27 19:38] LABS: Glucose,Whole Blood 179 mg/dL (75-99)
[2020-11-27] MEDS: GABAPENTIN 300 MG CAP PO SCH (19:45)
[2020-11-27] MEDS: MONTELUKAST 10 MG TAB PO SCH (19:45)
[2020-11-27] MEDS: THEOPHYLLINE 24 HOUR 300 MG CAP.ER.24H PO SCH (19:45)
[2020-11-27] MEDS: MELATONIN 3 MG TABLET PO SCH (19:45)
[2020-11-27] MEDS: PRAMIPEXOLE 0.5 MG TAB PO SCH (19:45)
[2020-11-27] MEDS: ATORVASTATIN 40 MG TAB PO SCH (19:46)
[2020-11-28 00:18] LABS: Glucose,Whole Blood 162 mg/dL (75-99)
[2020-11-28] MEDS: INSULIN ASPART (NovoLOG) 100 UNIT/ML VIAL SQ SCH ×6 (00:30→20:23)
[2020-11-28 04:07] LABS: Glucose,Whole Blood 122 mg/dL (75-99)
[2020-11-28] MEDS: LEVOTHYROXINE 75 MCG TAB PO SCH (06:10)
[2020-11-28 06:29] LABS: Basophils # (A) 0.1 k/uL (0-0.2); Basophils % (A) 1 %; Eosinophils # (A) 0.4 k/uL (0-0.7); Eosinophils % (A) 3 %; HCT 36.6 % (34.0-46.0); HGB 11.7 gm/dL (11.4-16.0); Lymphocytes # (A) 0.8 k/uL (1.0-4.8); Lymphocytes % (A) 6 %; MCH 28.7 pg (25.0-35.0); MCHC 32.1 g/dL (31.0-37.0); MCV 89.2 fL (80.0-100.0); Mean Platelet Volume 7.7; Monocytes # (A) 0.3 k/uL (0-1.0); Monocytes % (A) 3 %; Neutrophils # (A) 11.4 k/uL (1.3-7.7); Neutrophils % (A) 87 %; Platelet Count 297 k/uL (150-450); RDW 15.8 % (11.5-15.5); WBC 13.1 k/uL (3.8-10.6)
[2020-11-28 06:41] LABS: ALT 39 U/L (4-34); AST 42 U/L (14-36); African American GFR (CKD) >90 (>60 ml/min/1.73 sqM); Albumin 2.5 g/dL (3.5-5.0); Alkaline Phosphatase 180 U/L (38-126); Anion Gap 1 mmol/L; Blood Urea Nitrogen 19 mg/dL (7-17); C Reactive Protein <5.0 mg/L (<10.0); Calcium 8.7 mg/dL (8.4-10.2); Carbon Dioxide 27 mmol/L (22-30); Chloride 109 mmol/L (98-107); Glucose 119 mg/dL (74-99); LDH 2084 U/L (313-618); Magnesium 2.5 mg/dL (1.6-2.3); Non-African American GFR(CKD) >90 (>60 ml/min/1.73 sqM); Phosphorus 3.4 mg/dL (2.5-4.5); Potassium 3.8 mmol/L (3.5-5.1); Sodium 137 mmol/L (137-145); Total Bilirubin 0.5 mg/dL (0.2-1.3)
[2020-11-28] MEDS: ALBUTEROL HFA INHALER INHALATION SCH ×4 (07:24→19:52)
[2020-11-28] MEDS: SYMBICORT 160-4.5 MCG INHALER INHALATION SCH ×2 (08:00→19:52)
[2020-11-28] MEDS: TIOTROPIUM 2.5 MCG INHALER INHALATION SCH (08:00)
[2020-11-28 08:09] LABS: Glucose,Whole Blood 72 mg/dL (75-99)
[2020-11-28] MEDS ORDERED: DEXTROSE 50% SYRINGE 50 ML IVP ONE (08:36)
[2020-11-28] MEDS: ASCORBIC ACID 500 MG TAB PO SCH (08:41)
[2020-11-28] MEDS: allopurinoL 300 MG TAB PO SCH (08:41)
[2020-11-28] MEDS: GABAPENTIN 100 MG CAP PO SCH ×2 (08:41→12:31)
[2020-11-28] MEDS: SUCRALFATE 1 GM TAB PO SCH ×4 (08:42→20:32)
[2020-11-28] MEDS: COLCHICINE 0.6 MG EACH PO SCH ×2 (08:42→20:20)
[2020-11-28] MEDS: ZINC SULFATE 220 MG CAP PO SCH (08:42)
[2020-11-28] MEDS: MVI, ADULT NO.4 WITH VIT K 10 ML, TRACE (CONC-1ML/DOSE) 1 ML in AMINO ACID 5%-D20W+LYTE... IV SCH ×3 (08:56)
[2020-11-28] MEDS ORDERED: POTASSIUM CHLORIDE ER 20 MEQ TAB.ER PO SCH (09:00)
[2020-11-28] MEDS: FAMOTIDINE 20 MG/2 ML VIAL IV SCH ×2 (09:06→20:21)
[2020-11-28] MEDS: DEXAMETHASONE SOD PHOSPHATE 10 MG/ML 1 ML VIAL IV SCH (09:06)
[2020-11-28] MEDS: ENOXAPARIN 40 MG/0.4 ML SYRINGE SQ SCH ×2 (09:07→20:20)
--- NOTE | 2020-11-28 09:57 | XR ---
EXAMINATION TYPE: XR chest 1V portable DATE OF EXAM: 11/28/2020 Comparison: 11/27/2020 Clinical History: 60-year-old female covid bipap dependence Findings: Left PICC tip at the cavoatrial junction. Heart upper limits of normal in size. Diffuse interstitial opacities and hazy groundglass persists throughout the lungs with patchy basilar opacities. The patch y basilar densities may be minimally improved. Impression: Continued diffuse interstitial groundglass bilaterally. The patchy infiltrates in the lower lungs are similar to minimally improved.
[2020-11-28] MEDS ORDERED: FUROSEMIDE 10 MG/ML 4 ML VIAL IV STA (09:59)
[2020-11-28 12:20] LABS: Glucose,Whole Blood 108 mg/dL (75-99)
--- NOTE | 2020-11-28 13:07 | P.PN ---
Subjective COVID 19 related pneumonia and hypoxemia Acute hypoxic respiratory failure 60-year-old female came in with compensative shortness of breath found to have very low oxygen saturations patient was diagnosed with Covid 19 about 3 days ago patient had having symptoms for about a week. Patient was also company of fever chills patient has low-grade fever here. Patient was seen in [facility] subsequently transferred here patient is presently on 15 L of oxygen. Patient does have history of COPD. Patient was started on Decadron. Pulmonary was consulted. She was complaining of for cough without any significant sputum production. 11/24/2020, patient is seen for a follow-up. The patient is currently still on a BiPAP with an FiO2 of 100%; feeling slightly better; remains afebrile. The chest x-ray remains unchanged and the patient continues to have diffuse but the pulmonary infiltrates consistent with code 19 related pneumonia. Her inflammatory markers are quite abnormal. At LDH from today was 1006 and 41, and her CRP was 59. Note that the CRP level was slightly lower. The pro-calcitonin level from yesterday was 0.18. CPKs nonelevated and a triglyceride level is at 154. The patient has a d-dimer of 14.8. She remains on Lovenox at a dose of 40 mg subcu every 12 hours which is in the order of 0.5 mg per KG every 12 hours. In terms of treatment, the patient remains on Decadron 20 mg IV on the daily basis and she is on Remdesivir and she also received 2 doses of Actemra 400 mg IV. Her oral intake was noted to be quite low as the patient is unable to get herself off the BiPAP for oral intake. Based on that, the patient will be given a PICC line today and she'll be started on TPN for nutritional support to maintain her nutritional status. No fever. No chills. Hemodynamically stable. No other issues for now. Her CODE STATUS is full code. 11/25/2020 patient is seen and evaluated in room for a follow-up; patient became hypoxic ag ain and she had to be placed back on an FiO2 of 100% with a BiPAP pressure of 14/6 cm of water. Her current respiratory rate is in the order of 22-30 breaths per minute. The patient is comfortable. She is tolerating the treatment well. Laboratory review shows d-dimer is up to 30.01. Rest of the inflammatory markers show an LDH level of 1862 and the CRP is down to 40.8. Pro-calcitonin level was at 0.18. patient has received Lovenox at a dose of 40 mg subcu every 12 hours which is in the order of 0.5 mg per KG every 12 hours. In terms of treatment, the patient remains on Decadron 20 mg IV on the daily basis they #4 and she is on Remdesivir #5 and she also received 2 doses of Actemra 400 mg IV. Meanwhile be also inserted a PICC line in the left upper extremity and the patient was started on TPN for nutritional support. No altered mentation pH is resting comfortably in bed. Is slightly higher since the patient was started on TPN and septal 187 and the will going to put this patient on sliding scale blood sugar coverage. 11/26/2020 Patient remains in ICU and remains awake and alert; currently on BiPAP; FiO2 was weaned down to 70% with stable O2 saturation; patient remains on high-dose Decadron in form of 20 mg IV daily; inflammatory markers slowly trending down including CRP of 22, LDH of 1776, d-dimer 23.4 Patient is currently on TPN for nutrition at a rate of 45 hoursalong with blood glucose monitoring every 4 hours with insulin sliding scale; remains stable on IV fluids at 50 mL per hour Patient is being followed by pulmonology service and recommended to continue with Lovenox 40 mg subcu every 12 hours, Decadron 20 mg IV daily along with completing REM treatment; patient has received 2 doses of Actemra 400 mg IV. 11/27/2020 Patient remains on BiPAP with FiO2 of around 670%. Patient has some improvement in inflammatory markers. 11/28/2019 Patient remains on BiPAP with FiO2 of around 75%. Review of systems: Unable to obtain All inpatient medications were reviewed and appropriate changes in these medications as dictated in the interval history and assessment and plan. Objective - Vital Signs Vital signs: Vital Signs Temp 98.2 F 11/28/20 08:00 Pulse 65 11/28/20 12:00 Resp 38 H 11/28/20 12:00 BP 126/79 11/28/20 12:00 Pulse Ox 86 L 11/28/20 12:00 Intake & Output 11/27/20 11/28/20 11/28/20 18:59 06:59 18:59 Intake Total 1844.25 1340 1121 Output Total 515 530 115 Balance 1329.25 810 1006 Weight 86.2 kg Intake: IV 843 860 110 Fat Emulsion 20% 250 ml 63 210 In Empty Bag 1 bag @ 21 mls/hr IV MoWeFr JEAN CLAUDE Rx#: [id number] Mvi, Adult No.4 with Vit 180 K 10 ml Trace (Conc-1Ml/ Dose) 1 ml In Amino Acid 5%-D20w+Lytes*E* 1,000 ml @ 45 mls/hr IV .[id number] JEAN CLAUDE Rx#:[id number] Sodium Chloride 0.9% 1, 600 650 110 000 ml @ 50 mls/hr IV . Q20H JEAN CLAUDE Rx#:[id number] Intake, IV Titration 1001.25 1011 Amount Mvi, Adult No.4 with Vit 1001.25 1011 K 10 ml Trace (Conc-1Ml/ Dose) 1 ml In Amino Acid 5%-D20w+Lytes*E* 1,000 ml @ 45 mls/hr IV .[id number] JEAN CLAUDE Rx#:[id number] Oral 480 Output: Urine 515 530 115 Other: Voiding Method Indwelling Catheter Indwelling Catheter Indwelling Catheter - Exam PHYSICAL EXAMINATION: GENERAL: The patient is alert and oriented x3, not in any acute distress. Well developed, well nourished. HEENT: Pupils are round and equally reacting to light. EOMI. No scleral icterus. No conjunctival pallor. Normocephalic, atraumatic. No pharyngeal erythema. No thyromegaly. CARDIOVASCULAR: S1 and S2 present. No murmurs, rubs, or gallops. PULMONARY: There is some rhonchi and wheezing bilaterally ABDOMEN: Soft, nontender, nondistended, normoactive bowel sounds. No palpable organomegaly. MUSCULOSKELETAL: No joint swelling or deformity. EXTREMITIES: No cyanosis, clubbing, patient does have some pedal edema NEUROLOGICAL: Gross neurological examination did not reveal any focal deficits. SKIN: No rashes. Note: Because of COVID 19 isolation, some of the history and physical exam findings are indirect and obtained from nursing staff, and other physician examinations to avoid unnecessary contact with the patient. - Labs CBC & Chem 7: 11/28/20 06:15 11/28/20 06:15 Labs: Abnormal Lab Results - Last 24 Hours (Table) 11/27/20 11/27/20 11/28/20 Range/Units 16:26 19:37 00:16 WBC (3.8-10.6) k/uL RDW (11.5-15.5) % Neutrophils # (1.3-7.7) k/uL Lymphocytes # (1.0-4.8) k/uL D-Dimer (<0.60) mg/L FEU Chloride (98-107) mmol/L BUN (7-17) mg/dL Glucose (74-99) mg/dL POC Glucose (mg/dL) 152 H 179 H 162 H (75-99) mg/dL Magnesium (1.6-2.3) mg/dL AST (14-36) U/L ALT (4-34) U/L Alkaline Phosphatase (38-126) U/L Lactate Dehydrogenase (313-618) U/L Total Protein (6.3-8.2) g/dL Albumin (3.5-5.0) g/dL 11/28/20 11/28/20 11/28/20 Range/Units 04:06 06:15 06:15 WBC (3.8-10.6) k/uL RDW (11.5-15.5) % Neutrophils # (1.3-7.7) k/uL Lymphocytes # (1.0-4.8) k/uL D-Dimer 24.16 H (<0.60) mg/L FEU Chloride 109 H (98-107) mmol/L BUN 19 H (7-17) mg/dL Glucose 119 H (74-99) mg/dL POC Glucose (mg/dL) 122 H (75-99) mg/dL Magnesium 2.5 H (1.6-2.3) mg/dL AST 42 H (14-36) U/L ALT 39 H (4-34) U/L Alkaline Phosphatase 180 H (38-126) U/L Lactate Dehydrogenase 2084 H (313-618) U/L Total Protein 5.0 L (6.3-8.2) g/dL Albumin 2.5 L (3.5-5.0) g/dL 11/28/20 11/28/20 11/28/20 Range/Units 06:15 08:08 12:19 WBC 13.1 H (3.8-10.6) k/uL RDW 15.8 H (11.5-15.5) % Neutrophils # 11.4 H (1.3-7.7) k/uL Lymphocytes # 0.8 L (1.0-4.8) k/uL D-Dimer (<0.60) mg/L FEU Chloride (98-107) mmol/L BUN (7-17) mg/dL Glucose (74-99) mg/dL POC Glucose (mg/dL) 72 L 108 H (75-99) mg/dL Magnesium (1.6-2.3) mg/dL AST (14-36) U/L ALT (4-34) U/L Alkaline Phosphatase (38-126) U/L Lactate Dehydrogenase (313-618) U/L Total Protein (6.3-8.2) g/dL Albumin (3.5-5.0) g/dL Microbiology - Last 24 Hours (Table) 11/23/20 08:38 Blood Culture - Preliminary Blood No Growth after 120 hours Assessment and Plan Plan: -Acute hypoxic respiratory failure: Still Requiring BiPAP.. Secondary to Covid 19 pneumonia patient was started on Decadron , on the GI prophylaxis as well as Lovenox for DVT prophylaxis. Completed remdesivir and actemra. Was started on colchicine as an anti-inflammatory and patient is on TPN for nutrition -COPD with mild acute exacerbation secondary to Covid 19. Pulmonology following the patient -Hyperlipidemia -Hypothyroidism -History of gout for which she'll patient is on colchicine which will be continued -Peripheral edema improved now -Peripheral vascular disease -Hiatal hernia with gastroesophageal reflux disease patient is on Prilosec CODE STATUS; full code
--- NOTE | 2020-11-28 14:56 | P.PN ---
Subjective Progress Note Date: 11/28/20 Principal diagnosis: Acute hypoxic respiratory failure secondary to covid 19 pneumonitis 60-year-old here patient hospitalized for COVID 19 related pneumonia and hypoxemia. The patient was found to have a low oxygen saturation. She was diagnosed having COVID 19 on 11/20/2020. However, her symptoms started approximately a week prior to that as the patient started having generalized weakness, fever and chills. In the hospital at [facility], she was found to be hypoxic and she was placed on 15 L of oxygen by nasal cannula. She was started on Decadron and following that she was transferred to [facility] on 11/20/2020 for further evaluation. On today's evaluation the patient remains on 15 L of oxygen by nasal cannula. Laboratory markers show a LDH of 1482, her CRP is 239, her pro-calcitonin level is at 1.28, her white cell count is at 4.5 and the patient has a lymphopenia with a lymphocyte count of 0.7. The electrolytes all within normal limits. Renal function is within normal limits. Glucose slightly elevated at 235. The chest x-ray is showing bilateral pulmonary infiltrates mainly involving the left lung and or significantly in the right upper lobe area. The patient is known to have COPD/asthma. The patient is also has history of hypothyroidism, hyperlipidemia and gout. She has history of hiatal hernia.. She is on Decadron 6 mg by mouth daily. She is on no DVT prophylaxis is receiving 40 mg of Lovenox her d-dimer level is at 0.36. On 11/25/2020, I'm seeing the patient for a follow-up. After doing some attempts to drop down the FiO2, overnight the patient became hypoxic again and she had to be placed back on an FiO2 of 100% with a BiPAP pressure of 14/6 cm of water. Her current respiratory rate is in the order of 22-30 breaths per minute. Minute ventilation is improved compared to yesterday while being on a BiPAP machine. The patient is comfortable. She is tolerating the treatment well. Her d-dimer is up to 30.01. Rest of the inflammatory markers show an LDH level of 1862 and the CRP is down to 40.8. Pro-calcitonin level was at 0.18. The chest x-ray from today still pending. Meanwhile, as far as treatment, the patient has received Lovenox at a dose of 40 mg subcu every 12 hours which is in the order of 0.5 mg per KG every 12 hours. In terms of treatment, the patient remains on Decadron 20 mg IV on the daily basis they #4 and she is on Remdesivir #5 and she also received 2 doses of Actemra 400 mg IV. Meanwhile be also inserted a PICC line in the left upper extremity and the patient was started on TPN for nutritional support. No altered mentation pH is resting comfortably in bed. Is slightly higher since the patient was started on TPN and septal 187 and the will going to put this patient on sliding scale blood sugar coverage. 11/26/2020, the patient remains in high spirits. Although BiPAP dependent, she seems to be awake and alert and breathing okay. She is still tachypneic with a respiratory rate in the high 20s low 30s. Minute ventilation ranging between 18-22 L on a BiPAP at a pressure of 14/6 cm of water. FiO2 was weaned down to 70% and the patient remains on high dose Decadron 20 mg IV. Inflammatory markers show a CRP level of 22 which is lower, LDH of 1776 which is lower, and her d-dimer is 23.4 which is also lower. She is awake and alert and following commands pH is receiving TPN for nutritional support. She is on insulin subcu every 4 hours per sliding scale for blood sugar control. No nausea. No vomiting. No diarrhea. No signs of any fluid overload. TPN is running at the rate of 45 mL an hour. IV fluids is running at the rate of 50 mL an hour. Meanwhile, as far as treatment, the patient has received Lovenox at a dose of 40 mg subcu every 12 hours which is in the order of 0.5 mg per KG every 12 hours. In terms of treatment, the patient remains on Decadron 20 mg IV on the daily basis they #5 and she is on Remdesivir #5 and she also received 2 doses of Actemra 400 mg IV. Reevaluated today on 11/27/2020, patient remains on BiPAP, she is on IPAP of 12 and EPAP of 6, FiO2 remains at 75%. Patient desaturates at night, seems to do well during the day. Patient is still on the Covid 19 cocktail. She remains on Decadron, she is on Lovenox, she received remdesivir, and she also received actemra. Patient is on colchicine, and I went ahead and double the dose to 0.6 mg twice a day. Her d-dimer remains elevated. But seems to be coming down low. Chest x-ray continues to show bilateral infiltrates. Patient remains marginal at best. CBC is relatively normal electroencephalogram normal renal profile is normal. LDH is 1784, C-reactive protein is 9.7. Reevaluated today on 11/28/2020, patient remains in the ICU, remains on BiPAP, her IPAP was increased to 14, EPAP remains at 6. Remains at 75% FiO2, O2 saturation is in the low 90s. Patient is receiving TPN, she is also on the Covid 19 cocktail. Today her d-dimer is noted to be high LDH is high, patient looks tired, frail and chronically ill. Her pulmonary status is basically about the same, chest x-ray is basically unchanged continues to show bilateral interstitial infiltrates. Possibility of underlying CHF is not entirely ruled out, felt to be less likely, however will give the patient a dose of Lasix 40 mg IV push 1 today. And I will cut down her IV fluid to KVO. D-dimer is 24.16. WBC count is 13, electrolytes and renal profile are normal. Objective - Vital Signs Vital signs: Vital Signs Temp 98.2 F 11/28/20 08:00 Pulse 68 11/28/20 14:00 Resp 27 H 11/28/20 14:00 BP 118/64 11/28/20 14:00 Pulse Ox 87 L 11/28/20 14:00 Intake & Output 11/27/20 11/28/20 11/28/20 18:59 06:59 18:59 Intake Total 1844.25 1340 1161 Output Total 004 303 2056 Balance 1329.25 810 -1054 Weight 86.2 kg Intake: IV 843 860 150 Fat Emulsion 20% 250 ml 63 210 In Empty Bag 1 bag @ 21 mls/hr IV MoWeFr [facility] Rx#: [id number] Mvi, Adult No.4 with Vit 180 K 10 ml Trace (Conc-1Ml/ Dose) 1 ml In Amino Acid 5%-D20w+Lytes*E* 1,000 ml @ 45 mls/hr IV .[id number] [facility] Rx#:[id number] Sodium Chloride 0.9% 1, 600 650 150 000 ml @ 50 mls/hr IV . Q20H [facility] Rx#:[id number] Intake, IV Titration 1001.25 1011 Amount Mvi, Adult No.4 with Vit 1001.25 1011 K 10 ml Trace (Conc-1Ml/ Dose) 1 ml In Amino Acid 5%-D20w+Lytes*E* 1,000 ml @ 45 mls/hr IV .[id number] [facility] Rx#:[id number] Oral 480 Output: Urine 440 141 2331 Other: Voiding Method Indwelling Catheter Indwelling Catheter Indwelling Catheter - Exam GENERAL EXAM: Revealed 60-year-old female on BiPAP, 10/08, 75% FiO2. in no distress. HEENT: Head is atraumatic, normocephalic, PERRLA, EOMI, nonicteric sclerae. Moist mucous membranes. No neck masses no JVD no stridor CHEST: No chest wall deformity. Symmetrical expansion. LUNGS: Fine crackles at the bases. CVS: Regular rate and rhythm, normal S1 and S2, no gallops, no murmurs, no rubs ABDOMEN: Soft, nontender. No hepatosplenomegaly, normal bowel sounds, no guarding or rigidity. EXTREMITIES: No clubbing, no edema, no cyanosis, 2+ pulses and upper and lower extremities. MUSCULOSKELETAL: Muscle strength and tone normal. SPINE: No scoliosis or deformity SKIN: No rashes CENTRAL NERVOUS SYSTEM: Alert and oriented -3. No focal deficits, tone is normal in all 4 extremities. PSYCHIATRIC: Alert and oriented -3. Appropriate affect. Intact judgment and insight. - Labs CBC & Chem 7: 11/28/20 06:15 11/28/20 06:15 Labs: Abnormal Lab Results - Last 24 Hours (Table) 11/27/20 11/27/20 11/28/20 Range/Units 16:26 19:37 00:16 WBC (3.8-10.6) k/uL RDW (11.5-15.5) % Neutrophils # (1.3-7.7) k/uL Lymphocytes # (1.0-4.8) k/uL D-Dimer (<0.60) mg/L FEU Chloride (98-107) mmol/L BUN (7-17) mg/dL Glucose (74-99) mg/dL POC Glucose (mg/dL) 152 H 179 H 162 H (75-99) mg/dL Magnesium (1.6-2.3) mg/dL AST (14-36) U/L ALT (4-34) U/L Alkaline Phosphatase (38-126) U/L Lactate Dehydrogenase (313-618) U/L Total Protein (6.3-8.2) g/dL Albumin (3.5-5.0) g/dL 11/28/20 11/28/20 11/28/20 Range/Units 04:06 06:15 06:15 WBC (3.8-10.6) k/uL RDW (11.5-15.5) % Neutrophils # (1.3-7.7) k/uL Lymphocytes # (1.0-4.8) k/uL D-Dimer 24.16 H (<0.60) mg/L FEU Chloride 109 H (98-107) mmol/L BUN 19 H (7-17) mg/dL Glucose 119 H (74-99) mg/dL POC Glucose (mg/dL) 122 H (75-99) mg/dL Magnesium 2.5 H (1.6-2.3) mg/dL AST 42 H (14-36) U/L ALT 39 H (4-34) U/L Alkaline Phosphatase 180 H (38-126) U/L Lactate Dehydrogenase 2084 H (313-618) U/L Total Protein 5.0 L (6.3-8.2) g/dL Albumin 2.5 L (3.5-5.0) g/dL 11/28/20 11/28/20 11/28/20 Range/Units 06:15 08:08 12:19 WBC 13.1 H (3.8-10.6) k/uL RDW 15.8 H (11.5-15.5) % Neutrophils # 11.4 H (1.3-7.7) k/uL Lymphocytes # 0.8 L (1.0-4.8) k/uL D-Dimer (<0.60) mg/L FEU Chloride (98-107) mmol/L BUN (7-17) mg/dL Glucose (74-99) mg/dL POC Glucose (mg/dL) 72 L 108 H (75-99) mg/dL Magnesium (1.6-2.3) mg/dL AST (14-36) U/L ALT (4-34) U/L Alkaline Phosphatase (38-126) U/L Lactate Dehydrogenase (313-618) U/L Total Protein (6.3-8.2) g/dL Albumin (3.5-5.0) g/dL Microbiology - Last 24 Hours (Table) 11/23/20 08:38 Blood Culture - Preliminary Blood No Growth after 120 hours Assessment and Plan Assessment: Impression: Acute hypoxic respiratory failure secondary to covid 19 pneumonitis. Remains on BiPAP. 16/04. FiO2 is 75%. Remains on Decadron grams IV push daily. Received remdesivir and actemra. Colchicine remains 6.6 mg twice a day. She is also on Lovenox. Remains on TPN for nutritional support. Chronic persistent bronchial asthma. Chronic gout. Peripheral neuropathy Peripheral vessel occlusive disease Chronic normocytic anemia Ex-smoker Hiatal hernia with reflux. Hypertension. Steroids induced hyperglycemia. Recommendation: Continue BiPAP, and titrate FiO2 accordingly. Continue present supportive care measures. Continue GI and DVT prophylaxis. Continue colchicine, 0.6 mg twice a day. Continue the Covid 19 cocktail. Continue TPN via PICC line. Continue to monitor in the ICU for now. Prognosis remains guarded. We'll continue to follow. Time with Patient: Less than 30
[2020-11-28 17:04] LABS: Glucose,Whole Blood 174 mg/dL (75-99)
[2020-11-28 20:11] LABS: Glucose,Whole Blood 157 mg/dL (75-99)
[2020-11-28] MEDS: PRAMIPEXOLE 0.5 MG TAB PO SCH (20:19)
[2020-11-28] MEDS: THEOPHYLLINE 24 HOUR 300 MG CAP.ER.24H PO SCH (20:20)
[2020-11-28] MEDS: GABAPENTIN 300 MG CAP PO SCH (20:23)
[2020-11-28] MEDS: ATORVASTATIN 40 MG TAB PO SCH (20:23)
[2020-11-28] MEDS: MELATONIN 3 MG TABLET PO SCH (20:23)
[2020-11-28] MEDS: MONTELUKAST 10 MG TAB PO SCH (20:24)
[2020-11-28 23:48] LABS: Glucose,Whole Blood 150 mg/dL (75-99)
[2020-11-29 03:57] LABS: Glucose,Whole Blood 143 mg/dL (75-99)
[2020-11-29 04:08] LABS: Anisocytosis Slight; Basophils # (A) 0.1 k/uL (0-0.2); Basophils % (A) 1 %; Eosinophils # (A) 0.2 k/uL (0-0.7); Eosinophils % (A) 2 %; HCT 32.8 % (34.0-46.0); HGB 10.9 gm/dL (11.4-16.0); Hypochromasia Slight; Lymphocytes # (A) 0.5 k/uL (1.0-4.8); Lymphocytes % (A) 5 %; MCH 29.5 pg (25.0-35.0); MCHC 33.1 g/dL (31.0-37.0); MCV 89.3 fL (80.0-100.0); Mean Platelet Volume 8.4; Monocytes # (A) 0.3 k/uL (0-1.0); Monocytes % (A) 3 %; Neutrophils # (A) 9.4 k/uL (1.3-7.7); Neutrophils % (A) 89 %; Platelet Count 191 k/uL (150-450); RBC 3.68 m/uL (3.80-5.40); RDW 16.3 % (11.5-15.5); WBC 10.6 k/uL (3.8-10.6)
[2020-11-29 04:31] LABS: ALT 39 U/L (4-34); AST 37 U/L (14-36); African American GFR (CKD) >90 (>60 ml/min/1.73 sqM); Albumin 2.4 g/dL (3.5-5.0); Alkaline Phosphatase 163 U/L (38-126); Anion Gap 2 mmol/L; Blood Urea Nitrogen 23 mg/dL (7-17); Calcium 8.4 mg/dL (8.4-10.2); Carbon Dioxide 29 mmol/L (22-30); Chloride 107 mmol/L (98-107); Glucose 150 mg/dL (74-99); Magnesium 2.4 mg/dL (1.6-2.3); Non-African American GFR(CKD) >90 (>60 ml/min/1.73 sqM); Phosphorus 3.9 mg/dL (2.5-4.5); Potassium 3.8 mmol/L (3.5-5.1); Sodium 138 mmol/L (137-145); Total Bilirubin 0.6 mg/dL (0.2-1.3); Total Protein 4.6 g/dL (6.3-8.2)
[2020-11-29] MEDS: INSULIN ASPART (NovoLOG) 100 UNIT/ML VIAL SQ SCH ×6 (04:57→21:13)
[2020-11-29] MEDS ORDERED: POTASSIUM CHLORIDE ER 20 MEQ TAB.ER PO SCH (05:00)
[2020-11-29] MEDS: LEVOTHYROXINE 75 MCG TAB PO SCH (06:54)
[2020-11-29] MEDS: MVI, ADULT NO.4 WITH VIT K 10 ML, TRACE (CONC-1ML/DOSE) 1 ML in AMINO ACID 5%-D20W+LYTE... IV SCH ×3 (06:54)
--- NOTE | 2020-11-29 07:46 | XR ---
EXAMINATION TYPE: XR chest 1V portable DATE OF EXAM: 11/29/2020 COMPARISON: 11/28/2020 INDICATION: Short of breath, Covid pneumonia TECHNIQUE: Single frontal view of the chest is obtained. FINDINGS: The heart size is normal. The pulmonary vasculature is normal. Mild focal infiltrate is at the left costophrenic angle. Diffuse groundglass opacity present. Correlate for pulmonary edema. Atypical pneumonia could be consi dered. Findings are stable over the interval. PICC line enters on the left tip in the superior vena cava region. IMPRESSION: 1. Diffuse increased lung markings. Correlate for pulmonary edema and atypical pneumonia. 2. Mild focal infiltrate left costophrenic angle.
[2020-11-29 08:18] LABS: Glucose,Whole Blood 112 mg/dL (75-99)
[2020-11-29] MEDS: SUCRALFATE 1 GM TAB PO SCH ×4 (08:49→21:14)
[2020-11-29] MEDS: GABAPENTIN 100 MG CAP PO SCH ×2 (08:49→15:10)
[2020-11-29] MEDS: ASCORBIC ACID 500 MG TAB PO SCH (08:49)
[2020-11-29] MEDS: ENOXAPARIN 40 MG/0.4 ML SYRINGE SQ SCH ×2 (08:49→21:15)
[2020-11-29] MEDS: ZINC SULFATE 220 MG CAP PO SCH (08:49)
[2020-11-29] MEDS: allopurinoL 300 MG TAB PO SCH (08:50)
[2020-11-29] MEDS: COLCHICINE 0.6 MG EACH PO SCH ×2 (08:50→21:25)
[2020-11-29] MEDS: FAMOTIDINE 20 MG/2 ML VIAL IV SCH (08:50)
[2020-11-29] MEDS: DEXAMETHASONE SOD PHOSPHATE 10 MG/ML 1 ML VIAL IV SCH (08:50)
[2020-11-29] MEDS: ALBUTEROL HFA INHALER INHALATION SCH ×4 (09:15→20:29)
[2020-11-29] MEDS: SYMBICORT 160-4.5 MCG INHALER INHALATION SCH ×2 (09:16→20:29)
[2020-11-29] MEDS: TIOTROPIUM 2.5 MCG INHALER INHALATION SCH (09:16)
[2020-11-29] MEDS ORDERED: FUROSEMIDE 10 MG/ML 4 ML VIAL IV STA (10:29)
--- NOTE | 2020-11-29 10:39 | ECHOF ---
Referral Reason:Assess LV Function MEASUREMENTS -------- HEIGHT: 152.4 cm WEIGHT: 86.2 kg BP: 111/55 RVIDd: 2.5 cm (< 3.3) IVSd: 1.1 cm (0.6 - 1.1) LVIDd: 4.7 cm (3.9 - 5.3) LVPWd: 1.0 cm (0.6 - 1.1) IVSs: 1.5 cm LVIDs: 3.1 cm LVPWs: 1.5 cm LA Diam: 2.7 cm (2.7 - 3.8) Ao Diam: 3.2 cm (2.0 - 3.7) AV Cusp: 1.9 cm (1.5 - 2.6) MV EXCURSION: 18.525 mm (> 18.000) MV EF SLOPE: 60 mm/s (70 - 150) EPSS: 0.5 cm MV E Michael: 0.98 m/s MV DecT: 476 ms MV A Michael: 1.16 m/s MV E/A Ratio: 0.85 AV maxP.05 mmHg AV meanP.44 mmHg RAP: 5.00 mmHg RVSP: 28.48 mmHg FINDINGS -------- Sinus rhythm. This was a technically adequate study. The left ventricular size is normal. Left ventricular wall thickness is normal. Overall left vent ricular systolic function is normal with, an EF between 55 - 60 %. The right ventricle is normal in size. The left atrium is normal in size. The right atrial size is normal. Interatrial and interventricular septum intact. There is mild aortic valve sclerosis. Peak/mean gradient across the Aortic Valve is 15.05mmHg / 6.4 4mmHg. The mitral valve leaflets are mildly thickened. Mild mitral regurgitation is present. The tricuspid valve appears structurally normal. Mild tricuspid regurgitation present. Right vent ricular systolic pressure is normal at < 35 mmHg. The pulmonic valve was not well visualized. The aortic root size is normal. Normal inferior vena cava with normal inspiratory collapse consistent with estimated right atrial pre ssure of 5 mmHg. There is no pericardial effusion. CONCLUSIONS -------- 1. Left ventricular wall thickness is normal. 2. Overall left ventricular systolic function is normal with, an EF between 55 - 60 %. 3. There is mild aortic valve sclerosis. 4. Peak/mean gradient across the Aortic Valve is 15.05mmHg / 6.44mmHg. 5. The mitral valve leaflets are mildly thickened. 6. Mild mitral regurgitation is present. 7. Mild tricuspid regurgitation present. 8. There is no pericardial effusion. ELECTION CLERK: Julia Travis RDCS
[2020-11-29 11:57] LABS: Glucose,Whole Blood 144 mg/dL (75-99)
--- NOTE | 2020-11-29 12:16 | P.PN ---
Subjective COVID 19 related pneumonia and hypoxemia Acute hypoxic respiratory failure 60-year-old female came in with compensative shortness of breath found to have very low oxygen saturations patient was diagnosed with Covid 19 about 3 days ago patient had having symptoms for about a week. Patient was also company of fever chills patient has low-grade fever here. Patient was seen in [facility] subsequently transferred here patient is presently on 15 L of oxygen. Patient does have history of COPD. Patient was started on Decadron. Pulmonary was consulted. She was complaining of for cough without any significant sputum production. 11/24/2020, patient is seen for a follow-up. The patient is currently still on a BiPAP with an FiO2 of 100%; feeling slightly better; remains afebrile. The chest x-ray remains unchanged and the patient continues to have diffuse but the pulmonary infiltrates consistent with code 19 related pneumonia. Her inflammatory markers are quite abnormal. At LDH from today was 1006 and 41, and her CRP was 59. Note that the CRP level was slightly lower. The pro-calcitonin level from yesterday was 0.18. CPKs nonelevated and a triglyceride level is at 154. The patient has a d-dimer of 14.8. She remains on Lovenox at a dose of 40 mg subcu every 12 hours which is in the order of 0.5 mg per KG every 12 hours. In terms of treatment, the patient remains on Decadron 20 mg IV on the daily basis and she is on Remdesivir and she also received 2 doses of Actemra 400 mg IV. Her oral intake was noted to be quite low as the patient is unable to get herself off the BiPAP for oral intake. Based on that, the patient will be given a PICC line today and she'll be started on TPN for nutritional support to maintain her nutritional status. No fever. No chills. Hemodynamically stable. No other issues for now. Her CODE STATUS is full code. 11/25/2020 patient is seen and evaluated in room for a follow-up; patient became hypoxic ag ain and she had to be placed back on an FiO2 of 100% with a BiPAP pressure of 14/6 cm of water. Her current respiratory rate is in the order of 22-30 breaths per minute. The patient is comfortable. She is tolerating the treatment well. Laboratory review shows d-dimer is up to 30.01. Rest of the inflammatory markers show an LDH level of 1862 and the CRP is down to 40.8. Pro-calcitonin level was at 0.18. patient has received Lovenox at a dose of 40 mg subcu every 12 hours which is in the order of 0.5 mg per KG every 12 hours. In terms of treatment, the patient remains on Decadron 20 mg IV on the daily basis they #4 and she is on Remdesivir #5 and she also received 2 doses of Actemra 400 mg IV. Meanwhile be also inserted a PICC line in the left upper extremity and the patient was started on TPN for nutritional support. No altered mentation pH is resting comfortably in bed. Is slightly higher since the patient was started on TPN and septal 187 and the will going to put this patient on sliding scale blood sugar coverage. 11/26/2020 Patient remains in ICU and remains awake and alert; currently on BiPAP; FiO2 was weaned down to 70% with stable O2 saturation; patient remains on high-dose Decadron in form of 20 mg IV daily; inflammatory markers slowly trending down including CRP of 22, LDH of 1776, d-dimer 23.4 Patient is currently on TPN for nutrition at a rate of 45 hoursalong with blood glucose monitoring every 4 hours with insulin sliding scale; remains stable on IV fluids at 50 mL per hour Patient is being followed by pulmonology service and recommended to continue with Lovenox 40 mg subcu every 12 hours, Decadron 20 mg IV daily along with completing REM treatment; patient has received 2 doses of Actemra 400 mg IV. 11/27/2020 Patient remains on BiPAP with FiO2 of around 670%. Patient has some improvement in inflammatory markers. 11/28/2019 Patient remains on BiPAP with FiO2 of around 75%. 11/29/2019 No significant improvement in her respiratory status patient remains on the same Covid 19 cocktail as as today. Inflammatory markers have come down and stabilized. Review of systems: Unable to obtain All inpatient medications were reviewed and appropriate changes in these medications as dictated in the interval history and assessment and plan. Objective - Vital Signs Vital signs: Vital Signs Temp 98.9 F 11/29/20 08:00 Pulse 65 11/29/20 09:00 Resp 53 H 11/29/20 09:00 BP 118/60 11/29/20 09:00 Pulse Ox 86 L 11/29/20 09:00 Intake & Output 11/28/20 11/29/20 11/29/20 18:59 06:59 18:59 Intake Total 1201 1698.5 215 Output Total 2515 675 340 Balance -1314 1023.5 -125 Weight 83.1 kg 83.1 kg Intake: IV 190 660 165 Mvi, Adult No.4 with Vit 540 135 K 10 ml Trace (Conc-1Ml/ Dose) 1 ml In Amino Acid 5%-D20w+Lytes*E* 1,000 ml @ 45 mls/hr IV .[id number] [facility] Rx#:[id number] Sodium Chloride 0.9% 1, 190 120 30 000 ml @ 50 mls/hr IV . Q20H [facility] Rx#:[id number] Intake, IV Titration 1011 988.5 Amount Mvi, Adult No.4 with Vit 1011 988.5 K 10 ml Trace (Conc-1Ml/ Dose) 1 ml In Amino Acid 5%-D20w+Lytes*E* 1,000 ml @ 45 mls/hr IV .[id number] [facility] Rx#:[id number] Oral 50 50 Output: Urine 2515 675 340 Other: Voiding Method Indwelling Catheter Indwelling Catheter Indwelling Catheter - Exam PHYSICAL EXAMINATION: GENERAL: The patient is alert and oriented x3, not in any acute distress. Well developed, well nourished. HEENT: Pupils are round and equally reacting to light. EOMI. No scleral icterus. No conjunctival pallor. Normocephalic, atraumatic. No pharyngeal erythema. No thyromegaly. CARDIOVASCULAR: S1 and S2 present. No murmurs, rubs, or gallops. PULMONARY: There is some rhonchi and wheezing bilaterally ABDOMEN: Soft, nontender, nondistended, normoactive bowel sounds. No palpable organomegaly. MUSCULOSKELETAL: No joint swelling or deformity. EXTREMITIES: No cyanosis, clubbing, patient does have some pedal edema NEUROLOGICAL: Gross neurological examination did not reveal any focal deficits. SKIN: No rashes. Note: Because of COVID 19 isolation, some of the history and physical exam findings are indirect and obtained from nursing staff, and other physician examinations to avoid unnecessary contact with the patient. - Labs CBC & Chem 7: 11/29/20 03:55 11/29/20 03:55 Labs: Abnormal Lab Results - Last 24 Hours (Table) 11/28/20 11/28/20 11/28/20 Range/Units 12:19 17:02 20:10 RBC (3.80-5.40) m/uL Hgb (11.4-16.0) gm/dL Hct (34.0-46.0) % RDW (11.5-15.5) % Neutrophils # (1.3-7.7) k/uL Lymphocytes # (1.0-4.8) k/uL D-Dimer (<0.60) mg/L FEU BUN (7-17) mg/dL Glucose (74-99) mg/dL POC Glucose (mg/dL) 108 H 174 H 157 H (75-99) mg/dL Magnesium (1.6-2.3) mg/dL AST (14-36) U/L ALT (4-34) U/L Alkaline Phosphatase (38-126) U/L Total Protein (6.3-8.2) g/dL Albumin (3.5-5.0) g/dL 11/28/20 11/29/20 11/29/20 Range/Units 23:46 03:55 03:55 RBC 3.68 L (3.80-5.40) m/uL Hgb 10.9 L (11.4-16.0) gm/dL Hct 32.8 L (34.0-46.0) % RDW 16.3 H (11.5-15.5) % Neutrophils # 9.4 H (1.3-7.7) k/uL Lymphocytes # 0.5 L (1.0-4.8) k/uL D-Dimer (<0.60) mg/L FEU BUN 23 H (7-17) mg/dL Glucose 150 H (74-99) mg/dL POC Glucose (mg/dL) 150 H (75-99) mg/dL Magnesium 2.4 H (1.6-2.3) mg/dL AST 37 H (14-36) U/L ALT 39 H (4-34) U/L Alkaline Phosphatase 163 H (38-126) U/L Total Protein 4.6 L (6.3-8.2) g/dL Albumin 2.4 L (3.5-5.0) g/dL 11/29/20 11/29/20 11/29/20 Range/Units 03:55 07:37 08:17 RBC (3.80-5.40) m/uL Hgb (11.4-16.0) gm/dL Hct (34.0-46.0) % RDW (11.5-15.5) % Neutrophils # (1.3-7.7) k/uL Lymphocytes # (1.0-4.8) k/uL D-Dimer 31.33 H (<0.60) mg/L FEU BUN (7-17) mg/dL Glucose (74-99) mg/dL POC Glucose (mg/dL) 143 H 112 H (75-99) mg/dL Magnesium (1.6-2.3) mg/dL AST (14-36) U/L ALT (4-34) U/L Alkaline Phosphatase (38-126) U/L Total Protein (6.3-8.2) g/dL Albumin (3.5-5.0) g/dL 11/29/20 Range/Units 11:55 RBC (3.80-5.40) m/uL Hgb (11.4-16.0) gm/dL Hct (34.0-46.0) % RDW (11.5-15.5) % Neutrophils # (1.3-7.7) k/uL Lymphocytes # (1.0-4.8) k/uL D-Dimer (<0.60) mg/L FEU BUN (7-17) mg/dL Glucose (74-99) mg/dL POC Glucose (mg/dL) 144 H (75-99) mg/dL Magnesium (1.6-2.3) mg/dL AST (14-36) U/L ALT (4-34) U/L Alkaline Phosphatase (38-126) U/L Total Protein (6.3-8.2) g/dL Albumin (3.5-5.0) g/dL Microbiology - Last 24 Hours (Table) 11/23/20 08:38 Blood Culture - Final Blood No Growth after 144 hours Assessment and Plan Plan: -Acute hypoxic respiratory failure: Still Requiring BiPAP.. Secondary to Covid 19 pneumonia patient was started on Decadron , on the GI prophylaxis as well as Lovenox for DVT prophylaxis. Completed remdesivir and actemra. Was started on colchicine as an anti-inflammatory and patient is on TPN for nutrition -COPD with mild acute exacerbation secondary to Covid 19. Pulmonology following the patient -Hyperlipidemia -Hypothyroidism -History of gout for which she'll patient is on colchicine which will be continued -Peripheral edema improved now -Peripheral vascular disease -Hiatal hernia with gastroesophageal reflux disease patient is on Prilosec CODE STATUS; full code
--- NOTE | 2020-11-29 14:49 | P.PN ---
Subjective Progress Note Date: 11/29/20 Principal diagnosis: Acute hypoxic respiratory failure secondary to covid 19 pneumonitis 60-year-old here patient hospitalized for COVID 19 related pneumonia and hypoxemia. The patient was found to have a low oxygen saturation. She was diagnosed having COVID 19 on 11/20/2020. However, her symptoms started approximately a week prior to that as the patient started having generalized weakness, fever and chills. In the hospital at [facility], she was found to be hypoxic and she was placed on 15 L of oxygen by nasal cannula. She was started on Decadron and following that she was transferred to [facility] on 11/20/2020 for further evaluation. On today's evaluation the patient remains on 15 L of oxygen by nasal cannula. Laboratory markers show a LDH of 1482, her CRP is 239, her pro-calcitonin level is at 1.28, her white cell count is at 4.5 and the patient has a lymphopenia with a lymphocyte count of 0.7. The electrolytes all within normal limits. Renal function is within normal limits. Glucose slightly elevated at 235. The chest x-ray is showing bilateral pulmonary infiltrates mainly involving the left lung and or significantly in the right upper lobe area. The patient is known to have COPD/asthma. The patient is also has history of hypothyroidism, hyperlipidemia and gout. She has history of hiatal hernia.. She is on Decadron 6 mg by mouth daily. She is on no DVT prophylaxis is receiving 40 mg of Lovenox her d-dimer level is at 0.36. On 11/25/2020, I'm seeing the patient for a follow-up. After doing some attempts to drop down the FiO2, overnight the patient became hypoxic again and she had to be placed back on an FiO2 of 100% with a BiPAP pressure of 14/6 cm of water. Her current respiratory rate is in the order of 22-30 breaths per minute. Minute ventilation is improved compared to yesterday while being on a BiPAP machine. The patient is comfortable. She is tolerating the treatment well. Her d-dimer is up to 30.01. Rest of the inflammatory markers show an LDH level of 1862 and the CRP is down to 40.8. Pro-calcitonin level was at 0.18. The chest x-ray from today still pending. Meanwhile, as far as treatment, the patient has received Lovenox at a dose of 40 mg subcu every 12 hours which is in the order of 0.5 mg per KG every 12 hours. In terms of treatment, the patient remains on Decadron 20 mg IV on the daily basis they #4 and she is on Remdesivir #5 and she also received 2 doses of Actemra 400 mg IV. Meanwhile be also inserted a PICC line in the left upper extremity and the patient was started on TPN for nutritional support. No altered mentation pH is resting comfortably in bed. Is slightly higher since the patient was started on TPN and septal 187 and the will going to put this patient on sliding scale blood sugar coverage. 11/26/2020, the patient remains in high spirits. Although BiPAP dependent, she seems to be awake and alert and breathing okay. She is still tachypneic with a respiratory rate in the high 20s low 30s. Minute ventilation ranging between 18-22 L on a BiPAP at a pressure of 14/6 cm of water. FiO2 was weaned down to 70% and the patient remains on high dose Decadron 20 mg IV. Inflammatory markers show a CRP level of 22 which is lower, LDH of 1776 which is lower, and her d-dimer is 23.4 which is also lower. She is awake and alert and following commands pH is receiving TPN for nutritional support. She is on insulin subcu every 4 hours per sliding scale for blood sugar control. No nausea. No vomiting. No diarrhea. No signs of any fluid overload. TPN is running at the rate of 45 mL an hour. IV fluids is running at the rate of 50 mL an hour. Meanwhile, as far as treatment, the patient has received Lovenox at a dose of 40 mg subcu every 12 hours which is in the order of 0.5 mg per KG every 12 hours. In terms of treatment, the patient remains on Decadron 20 mg IV on the daily basis they #5 and she is on Remdesivir #5 and she also received 2 doses of Actemra 400 mg IV. Reevaluated today on 11/27/2020, patient remains on BiPAP, she is on IPAP of 12 and EPAP of 6, FiO2 remains at 75%. Patient desaturates at night, seems to do well during the day. Patient is still on the Covid 19 cocktail. She remains on Decadron, she is on Lovenox, she received remdesivir, and she also received actemra. Patient is on colchicine, and I went ahead and double the dose to 0.6 mg twice a day. Her d-dimer remains elevated. But seems to be coming down low. Chest x-ray continues to show bilateral infiltrates. Patient remains marginal at best. CBC is relatively normal electroencephalogram normal renal profile is normal. LDH is 1784, C-reactive protein is 9.7. Reevaluated today on 11/28/2020, patient remains in the ICU, remains on BiPAP, her IPAP was increased to 14, EPAP remains at 6. Remains at 75% FiO2, O2 saturation is in the low 90s. Patient is receiving TPN, she is also on the Covid 19 cocktail. Today her d-dimer is noted to be high LDH is high, patient looks tired, frail and chronically ill. Her pulmonary status is basically about the same, chest x-ray is basically unchanged continues to show bilateral interstitial infiltrates. Possibility of underlying CHF is not entirely ruled out, felt to be less likely, however will give the patient a dose of Lasix 40 mg IV push 1 today. And I will cut down her IV fluid to KVO. D-dimer is 24.16. WBC count is 13, electrolytes and renal profile are normal. Reevaluated today on 11/29/2020, patient remains in the ICU, remains on BiPAP with IPAP of 14 and EPAP of 6, FiO2 is 75%, O2 saturation is running in the low 90s. Patient is on the Covid 19 cocktail, diuresed significantly with one dose of Lasix yesterday, and I will give her another dose today. Remains on TPN via PICC line. Remains on colchicine. And overall she is about the same. Chest x- ray is also about the same. CBC today is relatively normal left lites are normal, inflammatory markers were not done today. D-dimer is 31.3 Objective - Vital Signs Vital signs: Vital Signs Temp 98.9 F 11/29/20 08:00 Pulse 62 11/29/20 13:00 Resp 24 11/29/20 13:00 BP 116/65 11/29/20 13:00 Pulse Ox 91 L 11/29/20 13:00 Intake & Output 11/28/20 11/29/20 11/29/20 18:59 06:59 18:59 Intake Total 1201 1698.5 435 Output Total 2515 675 2014 Balance -1314 1023.5 -1580 Weight 83.1 kg 83.1 kg Intake: IV 190 660 385 Mvi, Adult No.4 with Vit 540 315 K 10 ml Trace (Conc-1Ml/ Dose) 1 ml In Amino Acid 5%-D20w+Lytes*E* 1,000 ml @ 45 mls/hr IV .[id number] JEAN CLAUDE Rx#:[id number] Sodium Chloride 0.9% 1, 190 120 70 000 ml @ 50 mls/hr IV . Q20H JEAN CLAUDE Rx#:[id number] Intake, IV Titration 1011 988.5 Amount Mvi, Adult No.4 with Vit 1011 988.5 K 10 ml Trace (Conc-1Ml/ Dose) 1 ml In Amino Acid 5%-D20w+Lytes*E* 1,000 ml @ 45 mls/hr IV .[id number] JEAN CLAUDE Rx#:[id number] Oral 50 50 Output: Urine 2515 675 2014 Other: Voiding Method Indwelling Catheter Indwelling Catheter Indwelling Catheter - Exam GENERAL EXAM: Revealed 60-year-old female on BiPAP, 14/6, 75% FiO2. Looks comfortable. HEENT: Head is atraumatic, normocephalic, PERRLA, EOMI, nonicteric sclerae. Mo ist mucous membranes. No neck masses no JVD no stridor CHEST: No chest wall deformity. Symmetrical expansion. LUNGS: Minimal crackles bilaterally. CVS: Regular rate and rhythm, normal S1 and S2, no gallops, no murmurs, no rubs ABDOMEN: Soft, nontender. No hepatosplenomegaly, normal bowel sounds, no guarding or rigidity. EXTREMITIES: No clubbing, no edema, no cyanosis, 2+ pulses and upper and lower extremities. MUSCULOSKELETAL: Muscle strength and tone normal. SPINE: No scoliosis or deformity SKIN: No rashes CENTRAL NERVOUS SYSTEM: Alert and oriented -3. No focal deficits, tone is normal in all 4 extremities. PSYCHIATRIC: Alert and oriented -3. Appropriate affect. Intact judgment and insight. - Labs CBC & Chem 7: 11/29/20 03:55 11/29/20 03:55 Labs: Abnormal Lab Results - Last 24 Hours (Table) 11/28/20 11/28/20 11/28/20 Range/Units 17:02 20:10 23:46 RBC (3.80-5.40) m/uL Hgb (11.4-16.0) gm/dL Hct (34.0-46.0) % RDW (11.5-15.5) % Neutrophils # (1.3-7.7) k/uL Lymphocytes # (1.0-4.8) k/uL D-Dimer (<0.60) mg/L FEU BUN (7-17) mg/dL Glucose (74-99) mg/dL POC Glucose (mg/dL) 174 H 157 H 150 H (75-99) mg/dL Magnesium (1.6-2.3) mg/dL AST (14-36) U/L ALT (4-34) U/L Alkaline Phosphatase (38-126) U/L Total Protein (6.3-8.2) g/dL Albumin (3.5-5.0) g/dL 11/29/20 11/29/20 11/29/20 Range/Units 03:55 03:55 03:55 RBC 3.68 L (3.80-5.40) m/uL Hgb 10.9 L (11.4-16.0) gm/dL Hct 32.8 L (34.0-46.0) % RDW 16.3 H (11.5-15.5) % Neutrophils # 9.4 H (1.3-7.7) k/uL Lymphocytes # 0.5 L (1.0-4.8) k/uL D-Dimer (<0.60) mg/L FEU BUN 23 H (7-17) mg/dL Glucose 150 H (74-99) mg/dL POC Glucose (mg/dL) 143 H (75-99) mg/dL Magnesium 2.4 H (1.6-2.3) mg/dL AST 37 H (14-36) U/L ALT 39 H (4-34) U/L Alkaline Phosphatase 163 H (38-126) U/L Total Protein 4.6 L (6.3-8.2) g/dL Albumin 2.4 L (3.5-5.0) g/dL 01/11/29/20 11/29/20 Range/Units 07:37 08:17 11:55 RBC (3.80-5.40) m/uL Hgb (11.4-16.0) gm/dL Hct (34.0-46.0) % RDW (11.5-15.5) % Neutrophils # (1.3-7.7) k/uL Lymphocytes # (1.0-4.8) k/uL D-Dimer 31.33 H (<0.60) mg/L FEU BUN (7-17) mg/dL Glucose (74-99) mg/dL POC Glucose (mg/dL) 112 H 144 H (75-99) mg/dL Magnesium (1.6-2.3) mg/dL AST (14-36) U/L ALT (4-34) U/L Alkaline Phosphatase (38-126) U/L Total Protein (6.3-8.2) g/dL Albumin (3.5-5.0) g/dL Microbiology - Last 24 Hours (Table) 11/23/20 08:38 Blood Culture - Final Blood No Growth after 144 hours Assessment and Plan Assessment: Impression: Acute hypoxic respiratory failure secondary to covid 19 pneumonitis. Remains on BiPAP. 16/04. FiO2 is 75%. Remains on Decadron . Received remdesivir and actemra. Colchicine remains 0.6 mg twice a day. She is also on Lovenox. Remains on TPN for nutritional support. Chronic persistent bronchial asthma. Chronic gout. Peripheral neuropathy Peripheral vessel occlusive disease Chronic normocytic anemia Ex-smoker Hiatal hernia with reflux. Hypertension. Steroids induced hyperglycemia. Recommendation: Continue BiPAP, and titrate FiO2 accordingly. Continue GI and DVT prophylaxis. Continue colchicine, 0.6 mg twice a day. Continue the Covid 19 cocktail. Continue TPN via PICC line. Continue to monitor in the ICU for now. Prognosis remains guarded. We'll continue to follow. Time with Patient: Less than 30
[2020-11-29] MEDS: FAT EMULSION 20% 250 ML in EMPTY BAG 1 BAG IV SCH (17:11)
[2020-11-29 17:15] LABS: Glucose,Whole Blood 183 mg/dL (75-99)
[2020-11-29 19:47] LABS: Glucose,Whole Blood 140 mg/dL (75-99)
[2020-11-29] MEDS: MONTELUKAST 10 MG TAB PO SCH (21:14)
[2020-11-29] MEDS: FAMOTIDINE 20 MG TAB PO SCH (21:14)
[2020-11-29] MEDS: ATORVASTATIN 40 MG TAB PO SCH (21:14)
[2020-11-29] MEDS: MELATONIN 3 MG TABLET PO SCH (21:14)
[2020-11-29] MEDS: THEOPHYLLINE 24 HOUR 300 MG CAP.ER.24H PO SCH (21:15)
[2020-11-29] MEDS: PRAMIPEXOLE 0.5 MG TAB PO SCH (21:15)
[2020-11-29] MEDS: GABAPENTIN 300 MG CAP PO SCH (21:26)
[2020-11-30 00:01] LABS: Glucose,Whole Blood 151 mg/dL (75-99)
[2020-11-30] MEDS: INSULIN ASPART (NovoLOG) 100 UNIT/ML VIAL SQ SCH ×6 (00:16→19:52)
[2020-11-30] MEDS: MVI, ADULT NO.4 WITH VIT K 10 ML, TRACE (CONC-1ML/DOSE) 1 ML in AMINO ACID 5%-D20W+LYTE... IV SCH ×3 (02:51)
[2020-11-30 03:18] LABS: Glucose,Whole Blood 147 mg/dL (75-99)
[2020-11-30 04:56] LABS: D-Dimer 21.38 mg/L FEU (<0.60)
[2020-11-30 04:57] LABS: ALT 41 U/L (4-34); AST 45 U/L (14-36); African American GFR (CKD) >90 (>60 ml/min/1.73 sqM); Albumin 2.5 g/dL (3.5-5.0); Alkaline Phosphatase 209 U/L (38-126); Anion Gap 4 mmol/L; Blood Urea Nitrogen 24 mg/dL (7-17); C Reactive Protein <5.0 mg/L (<10.0); Calcium 8.7 mg/dL (8.4-10.2); Carbon Dioxide 29 mmol/L (22-30); Chloride 105 mmol/L (98-107); Creatine Kinase 35 U/L (30-135); Glucose 121 mg/dL (74-99); LDH 2044 U/L (313-618); Magnesium 2.4 mg/dL (1.6-2.3); Non-African American GFR(CKD) >90 (>60 ml/min/1.73 sqM); Potassium 3.7 mmol/L (3.5-5.1); Sodium 138 mmol/L (137-145); Total Bilirubin 0.5 mg/dL (0.2-1.3); Total Protein 4.8 g/dL (6.3-8.2)
[2020-11-30 05:04] LABS: Anisocytosis Slight; Basophils % (A) 0 %; Eosinophils # (A) 0.2 k/uL (0-0.7); Eosinophils % (A) 2 %; HCT 34.3 % (34.0-46.0); Hypochromasia Slight; Lymphocytes # (A) 0.6 k/uL (1.0-4.8); Lymphocytes % (A) 6 %; MCH 28.9 pg (25.0-35.0); MCHC 31.9 g/dL (31.0-37.0); MCV 90.4 fL (80.0-100.0); Monocytes # (A) 0.4 k/uL (0-1.0); Monocytes % (A) 3 %; Neutrophils # (A) 9.4 k/uL (1.3-7.7); Neutrophils % (A) 88 %; Platelet Count 224 k/uL (150-450); RDW 16.5 % (11.5-15.5); WBC 10.7 k/uL (3.8-10.6)
[2020-11-30] MEDS: LEVOTHYROXINE 75 MCG TAB PO SCH (05:27)
[2020-11-30] MEDS ORDERED: POTASSIUM CHLORIDE ER 20 MEQ TAB.ER PO SCH (06:30)
[2020-11-30] MEDS: ALBUTEROL HFA INHALER INHALATION SCH ×4 (07:35→21:16)
[2020-11-30] MEDS: SYMBICORT 160-4.5 MCG INHALER INHALATION SCH ×2 (07:35→21:16)
[2020-11-30] MEDS: TIOTROPIUM 2.5 MCG INHALER INHALATION SCH (07:36)
[2020-11-30] MEDS ORDERED: FUROSEMIDE 10 MG/ML 4 ML VIAL IV STA (07:46)
[2020-11-30 08:15] LABS: Glucose,Whole Blood 85 mg/dL (75-99)
[2020-11-30] MEDS: ZINC SULFATE 220 MG CAP PO SCH (09:02)
--- NOTE | 2020-11-30 09:02 | XR ---
EXAMINATION TYPE: XR chest 1V portable DATE OF EXAM: 11/30/2020 Comparison: 11/29/2020 Clinical History: 60-year-old female SOB/ COVID PNA Findings: Left PICC tip at the lower SVC. Heart upper limits of normal in size. Diffuse groundglass airspace op acity, right greater than left. Slightly increasing at the peripheral right base. No pleural effusion . Impression: Diffuse groundglass airspace disease, right greater than left persists. There has been slight worseni ng at the right base.
[2020-11-30] MEDS: GABAPENTIN 100 MG CAP PO SCH ×2 (09:03→12:24)
[2020-11-30] MEDS: FAMOTIDINE 20 MG TAB PO SCH ×2 (09:03→19:52)
[2020-11-30] MEDS: SUCRALFATE 1 GM TAB PO SCH ×4 (09:03→19:52)
[2020-11-30] MEDS: ASCORBIC ACID 500 MG TAB PO SCH (09:03)
[2020-11-30] MEDS: ENOXAPARIN 40 MG/0.4 ML SYRINGE SQ SCH ×2 (09:06→19:53)
[2020-11-30] MEDS: COLCHICINE 0.6 MG EACH PO SCH ×2 (09:08→19:51)
[2020-11-30] MEDS: allopurinoL 300 MG TAB PO SCH (09:08)
[2020-11-30] MEDS: methylPREDNISolone SOD SUCCI 125 MG/2 ML VIAL IV SCH ×3 (09:08→17:04)
[2020-11-30 09:38] LABS: Ferritin 904.4 ng/mL (10.0-291.0)
[2020-11-30 11:54] LABS: Glucose,Whole Blood 106 mg/dL (75-99)
--- NOTE | 2020-11-30 12:56 | P.PN ---
Subjective COVID 19 related pneumonia and hypoxemia Acute hypoxic respiratory failure 60-year-old female came in with compensative shortness of breath found to have very low oxygen saturations patient was diagnosed with Covid 19 about 3 days ago patient had having symptoms for about a week. Patient was also company of fever chills patient has low-grade fever here. Patient was seen in [facility] subsequently transferred here patient is presently on 15 L of oxygen. Patient does have history of COPD. Patient was started on Decadron. Pulmonary was consulted. She was complaining of for cough without any significant sputum production. 11/24/2020, patient is seen for a follow-up. The patient is currently still on a BiPAP with an FiO2 of 100%; feeling slightly better; remains afebrile. The chest x-ray remains unchanged and the patient continues to have diffuse but the pulmonary infiltrates consistent with code 19 related pneumonia. Her inflammatory markers are quite abnormal. At LDH from today was 1006 and 41, and her CRP was 59. Note that the CRP level was slightly lower. The pro-calcitonin level from yesterday was 0.18. CPKs nonelevated and a triglyceride level is at 154. The patient has a d-dimer of 14.8. She remains on Lovenox at a dose of 40 mg subcu every 12 hours which is in the order of 0.5 mg per KG every 12 hours. In terms of treatment, the patient remains on Decadron 20 mg IV on the daily basis and she is on Remdesivir and she also received 2 doses of Actemra 400 mg IV. Her oral intake was noted to be quite low as the patient is unable to get herself off the BiPAP for oral intake. Based on that, the patient will be given a PICC line today and she'll be started on TPN for nutritional support to maintain her nutritional status. No fever. No chills. Hemodynamically stable. No other issues for now. Her CODE STATUS is full code. 11/25/2020 patient is seen and evaluated in room for a follow-up; patient became hypoxic ag ain and she had to be placed back on an FiO2 of 100% with a BiPAP pressure of 14/6 cm of water. Her current respiratory rate is in the order of 22-30 breaths per minute. The patient is comfortable. She is tolerating the treatment well. Laboratory review shows d-dimer is up to 30.01. Rest of the inflammatory markers show an LDH level of 1862 and the CRP is down to 40.8. Pro-calcitonin level was at 0.18. patient has received Lovenox at a dose of 40 mg subcu every 12 hours which is in the order of 0.5 mg per KG every 12 hours. In terms of treatment, the patient remains on Decadron 20 mg IV on the daily basis they #4 and she is on Remdesivir #5 and she also received 2 doses of Actemra 400 mg IV. Meanwhile be also inserted a PICC line in the left upper extremity and the patient was started on TPN for nutritional support. No altered mentation pH is resting comfortably in bed. Is slightly higher since the patient was started on TPN and septal 187 and the will going to put this patient on sliding scale blood sugar coverage. 11/26/2020 Patient remains in ICU and remains awake and alert; currently on BiPAP; FiO2 was weaned down to 70% with stable O2 saturation; patient remains on high-dose Decadron in form of 20 mg IV daily; inflammatory markers slowly trending down including CRP of 22, LDH of 1776, d-dimer 23.4 Patient is currently on TPN for nutrition at a rate of 45 hoursalong with blood glucose monitoring every 4 hours with insulin sliding scale; remains stable on IV fluids at 50 mL per hour Patient is being followed by pulmonology service and recommended to continue with Lovenox 40 mg subcu every 12 hours, Decadron 20 mg IV daily along with completing REM treatment; patient has received 2 doses of Actemra 400 mg IV. 11/27/2020 Patient remains on BiPAP with FiO2 of around 670%. Patient has some improvement in inflammatory markers. 11/28/2019 Patient remains on BiPAP with FiO2 of around 75%. 11/29/2019 No significant improvement in her respiratory status patient remains on the same Covid 19 cocktail as as today. Inflammatory markers have come down and stabilized. 11/30/2019 Patient remains on BiPAPand change in his in her respiratory status or BiPAP settings. Patient is being dialyzed at this time as there is a concern of possible CHF as well patient remains on TPN and colchicine Review of systems: Unable to obtain All inpatient medications were reviewed and appropriate changes in these medications as dictated in the interval history and assessment and plan. Objective - Vital Signs Vital signs: Vital Signs Temp 98.2 F 11/30/20 12:08 Pulse 68 11/30/20 12:08 Resp 23 11/30/20 12:08 BP 115/80 11/30/20 12:08 Pulse Ox 94 L 11/30/20 12:08 Intake & Output 11/29/20 11/30/20 11/30/20 18:59 06:59 18:59 Intake Total 828 1931.75 280 Output Total 2665 760 1720 Balance -1837 1171.75 -1440 Weight 83.1 kg 86.7 kg Intake: IV 778 794 280 Fat Emulsion 20% 250 ml 63 189 In Empty Bag 1 bag @ 21 mls/hr IV MoWeFr JEAN CLAUDE Rx#: [id number] Mvi, Adult No.4 with Vit 585 495 270 K 10 ml Trace (Conc-1Ml/ Dose) 1 ml In Amino Acid 5%-D20w+Lytes*E* 1,000 ml @ 45 mls/hr IV .[id number] JEAN CLAUDE Rx#:[id number] Sodium Chloride 0.9% 1, 130 110 10 000 ml @ 50 mls/hr IV . Q20H JEAN CLAUDE Rx#:[id number] Intake, IV Titration 897.75 Amount Mvi, Adult No.4 with Vit 897.75 K 10 ml Trace (Conc-1Ml/ Dose) 1 ml In Amino Acid 5%-D20w+Lytes*E* 1,000 ml @ 45 mls/hr IV .[id number] JEAN CLAUDE Rx#:[id number] Oral 50 240 Blood Product 0 Ffp Pher Conval Covid19 0 Acda 2 Unit [id number] Output: Urine 2665 760 1720 Other: Voiding Method Indwelling Catheter Indwelling Catheter - Exam PHYSICAL EXAMINATION: GENERAL: The patient is alert and oriented x3, not in any acute distress. Well developed, well nourished. HEENT: Pupils are round and equally reacting to light. EOMI. No scleral icterus. No conjunctival pallor. Normocephalic, atraumatic. No pharyngeal erythema. No thyromegaly. CARDIOVASCULAR: S1 and S2 present. No murmurs, rubs, or gallops. PULMONARY: There is some rhonchi and wheezing bilaterally ABDOMEN: Soft, nontender, nondistended, normoactive bowel sounds. No palpable organomegaly. MUSCULOSKELETAL: No joint swelling or deformity. EXTREMITIES: No cyanosis, clubbing, patient does have some pedal edema NEUROLOGICAL: Gross neurological examination did not reveal any focal deficits. SKIN: No rashes. Note: Because of COVID 19 isolation, some of the history and physical exam findings are indirect and obtained from nursing staff, and other physician examinations to avoid unnecessary contact with the patient. - Labs CBC & Chem 7: 11/30/20 03:50 11/30/20 03:50 Labs: Abnormal Lab Results - Last 24 Hours (Table) 11/29/20 11/29/20 11/30/20 Range/Units 17:14 19:46 00:00 WBC (3.8-10.6) k/uL Hgb (11.4-16.0) gm/dL RDW (11.5-15.5) % Neutrophils # (1.3-7.7) k/uL Lymphocytes # (1.0-4.8) k/uL Fibrinogen (200-500) mg/dL D-Dimer (<0.60) mg/L FEU BUN (7-17) mg/dL Glucose (74-99) mg/dL POC Glucose (mg/dL) 183 H 140 H 151 H (75-99) mg/dL Magnesium (1.6-2.3) mg/dL Ferritin (10.0-291.0) ng/mL AST (14-36) U/L ALT (4-34) U/L Alkaline Phosphatase (38-126) U/L Lactate Dehydrogenase (313-618) U/L Total Protein (6.3-8.2) g/dL Albumin (3.5-5.0) g/dL 11/30/20 11/30/20 11/30/20 Range/Units 03:16 03:50 03:50 WBC 10.7 H (3.8-10.6) k/uL Hgb 11.0 L (11.4-16.0) gm/dL RDW 16.5 H (11.5-15.5) % Neutrophils # 9.4 H (1.3-7.7) k/uL Lymphocytes # 0.6 L (1.0-4.8) k/uL Fibrinogen (200-500) mg/dL D-Dimer (<0.60) mg/L FEU BUN 24 H (7-17) mg/dL Glucose 121 H (74-99) mg/dL POC Glucose (mg/dL) 147 H (75-99) mg/dL Magnesium 2.4 H (1.6-2.3) mg/dL Ferritin 904.4 H (10.0-291.0) ng/mL AST 45 H (14-36) U/L ALT 41 H (4-34) U/L Alkaline Phosphatase 209 H (38-126) U/L Lactate Dehydrogenase 2044 H (313-618) U/L Total Protein 4.8 L (6.3-8.2) g/dL Albumin 2.5 L (3.5-5.0) g/dL 11/30/20 11/30/20 Range/Units 03:50 11:52 WBC (3.8-10.6) k/uL Hgb (11.4-16.0) gm/dL RDW (11.5-15.5) % Neutrophils # (1.3-7.7) k/uL Lymphocytes # (1.0-4.8) k/uL Fibrinogen 140 L (200-500) mg/dL D-Dimer 21.38 H (<0.60) mg/L FEU BUN (7-17) mg/dL Glucose (74-99) mg/dL POC Glucose (mg/dL) 106 H (75-99) mg/dL Magnesium (1.6-2.3) mg/dL Ferritin (10.0-291.0) ng/mL AST (14-36) U/L ALT (4-34) U/L Alkaline Phosphatase (38-126) U/L Lactate Dehydrogenase (313-618) U/L Total Protein (6.3-8.2) g/dL Albumin (3.5-5.0) g/dL Microbiology - Last 24 Hours (Table) 11/23/20 08:38 Blood Culture - Final Blood No Growth after 144 hours Assessment and Plan Plan: -Acute hypoxic respiratory failure: Still Requiring BiPAP.. Secondary to Covid 19 pneumonia patient was started on Decadron , on the GI prophylaxis as well as Lovenox for DVT prophylaxis. Completed remdesivir and actemra. Was started on colchicine as an anti-inflammatory and patient is on TPN for nutrition -COPD with mild acute exacerbation secondary to Covid 19. Pulmonology following the patient -Hyperlipidemia -Hypothyroidism -History of gout for which she'll patient is on colchicine which will be continued -Peripheral edema improved now -Peripheral vascular disease -Hiatal hernia with gastroesophageal reflux disease patient is on Prilosec CODE STATUS; full code
--- NOTE | 2020-11-30 13:02 | P.PN ---
Subjective Progress Note Date: 11/30/20 Principal diagnosis: Acute hypoxic respiratory failure secondary to covid 19 pneumonitis 60-year-old here patient hospitalized for COVID 19 related pneumonia and hypoxemia. The patient was found to have a low oxygen saturation. She was diagnosed having COVID 19 on 11/20/2020. However, her symptoms started approximately a week prior to that as the patient started having generalized weakness, fever and chills. In the hospital at [place], she was found to be hypoxic and she was placed on 15 L of oxygen by nasal cannula. She was started on Decadron and following that she was transferred to [facility] on 11/20/2020 for further evaluation. On today's evaluation the patient remains on 15 L of oxygen by nasal cannula. Laboratory markers show a LDH of 1482, her CRP is 239, her pro-calcitonin level is at 1.28, her white cell count is at 4.5 and the patient has a lymphopenia with a lymphocyte count of 0.7. The electrolytes all within normal limits. Renal function is within normal limits. Glucose slightly elevated at 235. The chest x-ray is showing bilateral pulmonary infiltrates mainly involving the left lung and or significantly in the right upper lobe area. The patient is known to have COPD/asthma. The patient is also has history of hypothyroidism, hyperlipidemia and gout. She has history of hiatal hernia.. She is on Decadron 6 mg by mouth daily. She is on no DVT prophylaxis is receiving 40 mg of Lovenox her d-dimer level is at 0.36. On 11/25/2020, I'm seeing the patient for a follow-up. After doing some attempts to drop down the FiO2, overnight the patient became hypoxic again and she had to be placed back on an FiO2 of 100% with a BiPAP pressure of 14/6 cm of water. Her current respiratory rate is in the order of 22-30 breaths per minute. Minute ventilation is improved compared to yesterday while being on a BiPAP machine. The patient is comfortable. She is tolerating the treatment well. Her d-dimer is up to 30.01. Rest of the inflammatory markers show an LDH level of 1862 and the CRP is down to 40.8. Pro-calcitonin level was at 0.18. The chest x-ray from today still pending. Meanwhile, as far as treatment, the patient has received Lovenox at a dose of 40 mg subcu every 12 hours which is in the order of 0.5 mg per KG every 12 hours. In terms of treatment, the patient remains on Decadron 20 mg IV on the daily basis they #4 and she is on Remdesivir #5 and she also received 2 doses of Actemra 400 mg IV. Meanwhile be also inserted a PICC line in the left upper extremity and the patient was started on TPN for nutritional support. No altered mentation pH is resting comfortably in bed. Is slightly higher since the patient was started on TPN and septal 187 and the will going to put this patient on sliding scale blood sugar coverage. 11/26/2020, the patient remains in high spirits. Although BiPAP dependent, she seems to be awake and alert and breathing okay. She is still tachypneic with a respiratory rate in the high 20s low 30s. Minute ventilation ranging between 18-22 L on a BiPAP at a pressure of 14/6 cm of water. FiO2 was weaned down to 70% and the patient remains on high dose Decadron 20 mg IV. Inflammatory markers show a CRP level of 22 which is lower, LDH of 1776 which is lower, and her d-dimer is 23.4 which is also lower. She is awake and alert and following commands pH is receiving TPN for nutritional support. She is on insulin subcu every 4 hours per sliding scale for blood sugar control. No nausea. No vomiting. No diarrhea. No signs of any fluid overload. TPN is running at the rate of 45 mL an hour. IV fluids is running at the rate of 50 mL an hour. Meanwhile, as far as treatment, the patient has received Lovenox at a dose of 40 mg subcu every 12 hours which is in the order of 0.5 mg per KG every 12 hours. In terms of treatment, the patient remains on Decadron 20 mg IV on the daily basis they #5 and she is on Remdesivir #5 and she also received 2 doses of Actemra 400 mg IV. Reevaluated today on 11/27/2020, patient remains on BiPAP, she is on IPAP of 12 and EPAP of 6, FiO2 remains at 75%. Patient desaturates at night, seems to do well during the day. Patient is still on the Covid 19 cocktail. She remains on Decadron, she is on Lovenox, she received remdesivir, and she also received actemra. Patient is on colchicine, and I went ahead and double the dose to 0.6 mg twice a day. Her d-dimer remains elevated. But seems to be coming down low. Chest x-ray continues to show bilateral infiltrates. Patient remains marginal at best. CBC is relatively normal electroencephalogram normal renal profile is normal. LDH is 1784, C-reactive protein is 9.7. Reevaluated today on 11/28/2020, patient remains in the ICU, remains on BiPAP, her IPAP was increased to 14, EPAP remains at 6. Remains at 75% FiO2, O2 saturation is in the low 90s. Patient is receiving TPN, she is also on the Covid 19 cocktail. Today her d-dimer is noted to be high LDH is high, patient looks tired, frail and chronically ill. Her pulmonary status is basically about the same, chest x-ray is basically unchanged continues to show bilateral interstitial infiltrates. Possibility of underlying CHF is not entirely ruled out, felt to be less likely, however will give the patient a dose of Lasix 40 mg IV push 1 today. And I will cut down her IV fluid to KVO. D-dimer is 24.16. WBC count is 13, electrolytes and renal profile are normal. Reevaluated today on 11/29/2020, patient remains in the ICU, remains on BiPAP with IPAP of 14 and EPAP of 6, FiO2 is 75%, O2 saturation is running in the low 90s. Patient is on the Covid 19 cocktail, diuresed significantly with one dose of Lasix yesterday, and I will give her another dose today. Remains on TPN via PICC line. Remains on colchicine. And overall she is about the same. Chest x- ray is also about the same. CBC today is relatively normal left lites are normal, inflammatory markers were not done today. D-dimer is 31.3 Reevaluated today on 11/30/2020, remains in the ICU, she is basically about the same however her FiO2 requirement went up, she is now on 90% and set of 75% FiO2, BiPAP remains at 14/6. Patient remains on TPN, chest x-ray is showing interstitial infiltrates/edema, hence I recommended more Lasix to be given on a regular basis twice a day. Patient remains on TPN, remains on colchicine, CBC is relatively normal, d-dimer is 21.38. Electrolytesenc normal renal profile is normal. Her LDH is 2044, and her C-reactive protein is less than 5. Her LDH is basically about the same over the last few days Objective - Vital Signs Vital signs: Vital Signs Temp 98.2 F 11/30/20 12:08 Pulse 68 11/30/20 12:08 Resp 23 11/30/20 12:08 BP 115/80 11/30/20 12:08 Pulse Ox 94 L 11/30/20 12:08 Intake & Output 11/29/20 11/30/20 11/30/20 18:59 06:59 18:59 Intake Total 828 1931.75 280 Output Total 2665 760 1720 Balance -1837 1171.75 -1440 Weight 83.1 kg 86.7 kg Intake: IV 778 794 280 Fat Emulsion 20% 250 ml 63 189 In Empty Bag 1 bag @ 21 mls/hr IV MoWeFr [facility] Rx#: [id number] Mvi, Adult No.4 with Vit 585 495 270 K 10 ml Trace (Conc-1Ml/ Dose) 1 ml In Amino Acid 5%-D20w+Lytes*E* 1,000 ml @ 45 mls/hr IV .[id number] [facility] Rx#:[id number] Sodium Chloride 0.9% 1, 130 110 10 000 ml @ 50 mls/hr IV . Q20H [facility] Rx#:[id number] Intake, IV Titration 897.75 Amount Mvi, Adult No.4 with Vit 897.75 K 10 ml Trace (Conc-1Ml/ Dose) 1 ml In Amino Acid 5%-D20w+Lytes*E* 1,000 ml @ 45 mls/hr IV .[id number] [facility] Rx#:[id number] Oral 50 240 Blood Product 0 Ffp Pher Conval Covid19 0 Acda 2 Unit [id number] Output: Urine 2665 760 1720 Other: Voiding Method Indwelling Catheter Indwelling Catheter - Exam GENERAL EXAM: Revealed 60-year-old female on BiPAP, 14/6, 90 % FiO2. HEENT: Head is atraumatic, normocephalic, PERRLA, EOMI, nonicteric sclerae. Moist mucous membranes. No neck masses no JVD no stridor CHEST: No chest wall deformity. Symmetrical expansion. LUNGS: Minimal crackles bilaterally. CVS: Regular rate and rhythm, normal S1 and S2, no gallops, no murmurs, no rubs ABDOMEN: Soft, nontender. No hepatosplenomegaly, normal bowel sounds, no guarding or rigidity. EXTREMITIES: No clubbing, no edema, no cyanosis, 2+ pulses and upper and lower extremities. MUSCULOSKELETAL: Muscle strength and tone normal. SPINE: No scoliosis or deformity SKIN: No rashes CENTRAL NERVOUS SYSTEM: Alert and oriented -3. No focal deficits, tone is normal in all 4 extremities. PSYCHIATRIC: Alert and oriented -3. Appropriate affect. Intact judgment and insight. - Labs CBC & Chem 7: 11/30/20 03:50 11/30/20 03:50 Labs: Abnormal Lab Results - Last 24 Hours (Table) 11/29/20 11/29/20 11/30/20 Range/Units 17:14 19:46 00:00 WBC (3.8-10.6) k/uL Hgb (11.4-16.0) gm/dL RDW (11.5-15.5) % Neutrophils # (1.3-7.7) k/uL Lymphocytes # (1.0-4.8) k/uL Fibrinogen (200-500) mg/dL D-Dimer (<0.60) mg/L FEU BUN (7-17) mg/dL Glucose (74-99) mg/dL POC Glucose (mg/dL) 183 H 140 H 151 H (75-99) mg/dL Magnesium (1.6-2.3) mg/dL Ferritin (10.0-291.0) ng/mL AST (14-36) U/L ALT (4-34) U/L Alkaline Phosphatase (38-126) U/L Lactate Dehydrogenase (313-618) U/L Total Protein (6.3-8.2) g/dL Albumin (3.5-5.0) g/dL 11/30/20 11/30/20 11/30/20 Range/Units 03:16 03:50 03:50 WBC 10.7 H (3.8-10.6) k/uL Hgb 11.0 L (11.4-16.0) gm/dL RDW 16.5 H (11.5-15.5) % Neutrophils # 9.4 H (1.3-7.7) k/uL Lymphocytes # 0.6 L (1.0-4.8) k/uL Fibrinogen (200-500) mg/dL D-Dimer (<0.60) mg/L FEU BUN 24 H (7-17) mg/dL Glucose 121 H (74-99) mg/dL POC Glucose (mg/dL) 147 H (75-99) mg/dL Magnesium 2.4 H (1.6-2.3) mg/dL Ferritin 904.4 H (10.0-291.0) ng/mL AST 45 H (14-36) U/L ALT 41 H (4-34) U/L Alkaline Phosphatase 209 H (38-126) U/L Lactate Dehydrogenase 2044 H (313-618) U/L Total Protein 4.8 L (6.3-8.2) g/dL Albumin 2.5 L (3.5-5.0) g/dL 11/30/20 11/30/20 Range/Units 03:50 11:52 WBC (3.8-10.6) k/uL Hgb (11.4-16.0) gm/dL RDW (11.5-15.5) % Neutrophils # (1.3-7.7) k/uL Lymphocytes # (1.0-4.8) k/uL Fibrinogen 140 L (200-500) mg/dL D-Dimer 21.38 H (<0.60) mg/L FEU BUN (7-17) mg/dL Glucose (74-99) mg/dL POC Glucose (mg/dL) 106 H (75-99) mg/dL Magnesium (1.6-2.3) mg/dL Ferritin (10.0-291.0) ng/mL AST (14-36) U/L ALT (4-34) U/L Alkaline Phosphatase (38-126) U/L Lactate Dehydrogenase (313-618) U/L Total Protein (6.3-8.2) g/dL Albumin (3.5-5.0) g/dL Microbiology - Last 24 Hours (Table) 11/23/20 08:38 Blood Culture - Final Blood No Growth after 144 hours Assessment and Plan Assessment: Impression: Acute hypoxic respiratory failure secondary to covid 19 pneumonitis. Remains on BiPAP. /. FiO2 is 90%. Remains on Decadron . Received remdesivir and actemra. Colchicine remains 0.6 mg twice a day. She is also on Lovenox. Remains on TPN for nutritional support. Chronic persistent bronchial asthma. Chronic gout. Peripheral neuropathy Peripheral vessel occlusive disease Chronic normocytic anemia Ex-smoker Hiatal hernia with reflux. Hypertension. Steroids induced hyperglycemia. Recommendation: Discussed her condition with her daughter over the phone today, and updated her on her condition. And the fact that she remains critically ill, may even requi re placement on mechanical ventilation if her condition gets any worse. In the meantime Continue BiPAP, and titrate FiO2 accordingly. Continue GI and DVT prophylaxis. Continue colchicine, 0.6 mg twice a day. Continue the Covid 19 cocktail. Continue TPN via PICC line. Continue to monitor in the ICU for now. Prognosis remains guarded. We'll continue to follow. Time with Patient: Less than 30
[2020-11-30 16:00] LABS: Glucose,Whole Blood 192 mg/dL (75-99)
[2020-11-30 19:41] LABS: Glucose,Whole Blood 180 mg/dL (75-99)
[2020-11-30] MEDS: PRAMIPEXOLE 0.5 MG TAB PO SCH (19:51)
[2020-11-30] MEDS: FUROSEMIDE 10 MG/ML 4 ML VIAL IV SCH ×2 (19:51→19:54)
[2020-11-30] MEDS: GABAPENTIN 300 MG CAP PO SCH (19:52)
[2020-11-30] MEDS: MELATONIN 3 MG TABLET PO SCH (19:52)
[2020-11-30] MEDS: THEOPHYLLINE 24 HOUR 300 MG CAP.ER.24H PO SCH (19:52)
[2020-11-30] MEDS: ATORVASTATIN 40 MG TAB PO SCH (19:52)
[2020-11-30] MEDS: MONTELUKAST 10 MG TAB PO SCH (19:52)
[2020-12-01 00:05] LABS: Glucose,Whole Blood 203 mg/dL (75-99)
[2020-12-01] MEDS: INSULIN ASPART (NovoLOG) 100 UNIT/ML VIAL SQ SCH ×5 (00:06→17:49)
[2020-12-01] MEDS: methylPREDNISolone SOD SUCCI 125 MG/2 ML VIAL IV SCH ×4 (00:07→17:50)
[2020-12-01] MEDS: MVI, ADULT NO.4 WITH VIT K 10 ML, TRACE (CONC-1ML/DOSE) 1 ML, POTASSIUM CHLORIDE 20 MEQ... IV SCH ×4 (01:56)
[2020-12-01 04:05] LABS: Anisocytosis Slight; Basophils % (A) 0 %; Eosinophils % (A) 1 %; HCT 31.6 % (34.0-46.0); HGB 10.5 gm/dL (11.4-16.0); Hypochromasia Slight; Lymphocytes # (A) 0.3 k/uL (1.0-4.8); Lymphocytes % (A) 3 %; MCH 29.7 pg (25.0-35.0); MCHC 33.2 g/dL (31.0-37.0); MCV 89.3 fL (80.0-100.0); Mean Platelet Volume 7.9; Monocytes # (A) 0.2 k/uL (0-1.0); Monocytes % (A) 2 %; Neutrophils # (A) 8.2 k/uL (1.3-7.7); Neutrophils % (A) 93 %; Platelet Count 195 k/uL (150-450); RBC 3.54 m/uL (3.80-5.40); RDW 16.5 % (11.5-15.5); WBC 8.8 k/uL (3.8-10.6)
[2020-12-01 04:19] LABS: ALT 45 U/L (4-34); AST 38 U/L (14-36); African American GFR (CKD) >90 (>60 ml/min/1.73 sqM); Albumin 2.7 g/dL (3.5-5.0); Alkaline Phosphatase 213 U/L (38-126); Anion Gap 5 mmol/L; Blood Urea Nitrogen 26 mg/dL (7-17); Calcium 8.6 mg/dL (8.4-10.2); Carbon Dioxide 29 mmol/L (22-30); Chloride 103 mmol/L (98-107); Glucose 165 mg/dL (74-99); Magnesium 2.2 mg/dL (1.6-2.3); Non-African American GFR(CKD) >90 (>60 ml/min/1.73 sqM); Phosphorus 4.6 mg/dL (2.5-4.5); Potassium 3.4 mmol/L (3.5-5.1); Sodium 137 mmol/L (137-145); Total Bilirubin 0.6 mg/dL (0.2-1.3)
[2020-12-01] MEDS: LEVOTHYROXINE 75 MCG TAB PO SCH (05:30)
[2020-12-01] MEDS: POTASSIUM CHLORIDE ER 20 MEQ TAB.ER PO SCH ×2 (05:30→06:51)
--- NOTE | 2020-12-01 07:30 | XR ---
EXAMINATION TYPE: XR chest 1V portable DATE OF EXAM: 12/01/2020 HISTORY: Shortness of breath. COMPARISON: 11/30/2020 TECHNIQUE: Single view of the chest is submitted. FINDINGS: Demonstrated are scattered senescent parenchymal change. Coarse diffuse bilateral infiltrates persist with more confluent infiltrate right lower lobe. Small r ight-sided pleural effusion. Mild interval improvement suggested. The heart is stable. Hilar and mediastinal structures are within normal limits. Degenerative changes are seen of the dorsal spine. IMPRESSION: 1. Coarse diffuse bilateral infiltrates persist with more confluent infiltrate right lower lobe. Sma ll right-sided pleural effusion. Mild interval improvement suggested.
[2020-12-01 07:43] LABS: Glucose,Whole Blood 131 mg/dL (75-99)
[2020-12-01] MEDS: ZINC SULFATE 220 MG CAP PO SCH (08:35)
[2020-12-01] MEDS: ASCORBIC ACID 500 MG TAB PO SCH (08:35)
[2020-12-01] MEDS: SUCRALFATE 1 GM TAB PO SCH ×4 (08:35→20:22)
[2020-12-01] MEDS: FAMOTIDINE 20 MG TAB PO SCH ×2 (08:35→20:22)
[2020-12-01] MEDS: ENOXAPARIN 40 MG/0.4 ML SYRINGE SQ SCH ×2 (08:35→20:22)
[2020-12-01] MEDS: GABAPENTIN 100 MG CAP PO SCH ×2 (08:35→11:56)
[2020-12-01] MEDS: FUROSEMIDE 10 MG/ML 4 ML VIAL IV SCH ×2 (08:36→20:22)
[2020-12-01] MEDS: COLCHICINE 0.6 MG EACH PO SCH ×2 (08:36→20:22)
[2020-12-01] MEDS: allopurinoL 300 MG TAB PO SCH (08:36)
[2020-12-01] MEDS: ALBUTEROL HFA INHALER INHALATION SCH ×4 (09:25→19:55)
[2020-12-01] MEDS: SYMBICORT 160-4.5 MCG INHALER INHALATION SCH ×2 (09:25→19:56)
[2020-12-01] MEDS: TIOTROPIUM 2.5 MCG INHALER INHALATION SCH (09:25)
[2020-12-01 11:46] LABS: Glucose,Whole Blood 181 mg/dL (75-99)
--- NOTE | 2020-12-01 13:21 | P.PN ---
Subjective Progress Note Date: 12/01/20 Principal diagnosis: Acute hypoxic respiratory failure secondary to covid 19 pneumonitis 60-year-old here patient hospitalized for COVID 19 related pneumonia and hypoxemia. The patient was found to have a low oxygen saturation. She was diagnosed having COVID 19 on 11/20/2020. However, her symptoms started approximately a week prior to that as the patient started having generalized weakness, fever and chills. In the hospital at [place], she was found to be hypoxic and she was placed on 15 L of oxygen by nasal cannula. She was started on Decadron and following that she was transferred to [facility] on 11/20/2020 for further evaluation. On today's evaluation the patient remains on 15 L of oxygen by nasal cannula. Laboratory markers show a LDH of 1482, her CRP is 239, her pro-calcitonin level is at 1.28, her white cell count is at 4.5 and the patient has a lymphopenia with a lymphocyte count of 0.7. The electrolytes all within normal limits. Renal function is within normal limits. Glucose slightly elevated at 235. The chest x-ray is showing bilateral pulmonary infiltrates mainly involving the left lung and or significantly in the right upper lobe area. The patient is known to have COPD/asthma. The patient is also has history of hypothyroidism, hyperlipidemia and gout. She has history of hiatal hernia.. She is on Decadron 6 mg by mouth daily. She is on no DVT prophylaxis is receiving 40 mg of Lovenox her d-dimer level is at 0.36. On 11/25/2020, I'm seeing the patient for a follow-up. After doing some attempts to drop down the FiO2, overnight the patient became hypoxic again and she had to be placed back on an FiO2 of 100% with a BiPAP pressure of 14/6 cm of water. Her current respiratory rate is in the order of 22-30 breaths per minute. Minute ventilation is improved compared to yesterday while being on a BiPAP machine. The patient is comfortable. She is tolerating the treatment well. Her d-dimer is up to 30.01. Rest of the inflammatory markers show an LDH level of 1862 and the CRP is down to 40.8. Pro-calcitonin level was at 0.18. The chest x-ray from today still pending. Meanwhile, as far as treatment, the patient has received Lovenox at a dose of 40 mg subcu every 12 hours which is in the order of 0.5 mg per KG every 12 hours. In terms of treatment, the patient remains on Decadron 20 mg IV on the daily basis they #4 and she is on Remdesivir #5 and she also received 2 doses of Actemra 400 mg IV. Meanwhile be also inserted a PICC line in the left upper extremity and the patient was started on TPN for nutritional support. No altered mentation pH is resting comfortably in bed. Is slightly higher since the patient was started on TPN and septal 187 and the will going to put this patient on sliding scale blood sugar coverage. 11/26/2020, the patient remains in high spirits. Although BiPAP dependent, she seems to be awake and alert and breathing okay. She is still tachypneic with a respiratory rate in the high 20s low 30s. Minute ventilation ranging between 18-22 L on a BiPAP at a pressure of 14/6 cm of water. FiO2 was weaned down to 70% and the patient remains on high dose Decadron 20 mg IV. Inflammatory markers show a CRP level of 22 which is lower, LDH of 1776 which is lower, and her d-dimer is 23.4 which is also lower. She is awake and alert and following commands pH is receiving TPN for nutritional support. She is on insulin subcu every 4 hours per sliding scale for blood sugar control. No nausea. No vomiting. No diarrhea. No signs of any fluid overload. TPN is running at the rate of 45 mL an hour. IV fluids is running at the rate of 50 mL an hour. Meanwhile, as far as treatment, the patient has received Lovenox at a dose of 40 mg subcu every 12 hours which is in the order of 0.5 mg per KG every 12 hours. In terms of treatment, the patient remains on Decadron 20 mg IV on the daily basis they #5 and she is on Remdesivir #5 and she also received 2 doses of Actemra 400 mg IV. Reevaluated today on 11/27/2020, patient remains on BiPAP, she is on IPAP of 12 and EPAP of 6, FiO2 remains at 75%. Patient desaturates at night, seems to do well during the day. Patient is still on the Covid 19 cocktail. She remains on Decadron, she is on Lovenox, she received remdesivir, and she also received actemra. Patient is on colchicine, and I went ahead and double the dose to 0.6 mg twice a day. Her d-dimer remains elevated. But seems to be coming down low. Chest x-ray continues to show bilateral infiltrates. Patient remains marginal at best. CBC is relatively normal electroencephalogram normal renal profile is normal. LDH is 1784, C-reactive protein is 9.7. Reevaluated today on 11/28/2020, patient remains in the ICU, remains on BiPAP, her IPAP was increased to 14, EPAP remains at 6. Remains at 75% FiO2, O2 saturation is in the low 90s. Patient is receiving TPN, she is also on the Covid 19 cocktail. Today her d-dimer is noted to be high LDH is high, patient looks tired, frail and chronically ill. Her pulmonary status is basically about the same, chest x-ray is basically unchanged continues to show bilateral interstitial infiltrates. Possibility of underlying CHF is not entirely ruled out, felt to be less likely, however will give the patient a dose of Lasix 40 mg IV push 1 today. And I will cut down her IV fluid to KVO. D-dimer is 24.16. WBC count is 13, electrolytes and renal profile are normal. Reevaluated today on 11/29/2020, patient remains in the ICU, remains on BiPAP with IPAP of 14 and EPAP of 6, FiO2 is 75%, O2 saturation is running in the low 90s. Patient is on the Covid 19 cocktail, diuresed significantly with one dose of Lasix yesterday, and I will give her another dose today. Remains on TPN via PICC line. Remains on colchicine. And overall she is about the same. Chest x- ray is also about the same. CBC today is relatively normal left lites are normal, inflammatory markers were not done today. D-dimer is 31.3 Reevaluated today on 11/30/2020, remains in the ICU, she is basically about the same however her FiO2 requirement went up, she is now on 90% and set of 75% FiO2, BiPAP remains at 14/6. Patient remains on TPN, chest x-ray is showing interstitial infiltrates/edema, hence I recommended more Lasix to be given on a regular basis twice a day. Patient remains on TPN, remains on colchicine, CBC is relatively normal, d-dimer is 21.38. Electrolytesenc normal renal profile is normal. Her LDH is 2043, and her C-reactive protein is less than 5. Her LDH is basically about the same over the last few days Reevaluated today on 12/01/2020, remains in the ICU, remains on BiPAP, however the FiO2 is down to 65%, IPAP is 14, EPAP is 6, patient is holding her saturations in the low 90, roughly 93%. Yesterday she tolerated 45 minutes of non-rebreather mask and high flow nasal cannula. Her IV fluids remains at KVO, remains on Lasix, patient is in negative balance, she is still on TPN, overall the patient has made significant improvement over the last 24 hours, and she is feeling better compared to how she felt initially. Less shortness of breath, seems to be more comfortable with her BiPAP. Remains on Lasix 40 mg IV push every 12 hours WBC count today is 8.8 hemoglobin is 10.5, and left lites are normal potassium is a bit low being corrected as per protocol. No inflammatory markers were ordered to be done today. Chest x-ray minimal slight improvement Objective - Vital Signs Vital signs: Vital Signs Temp 98.1 F 12/01/20 12:00 Pulse 65 12/01/20 13:00 Resp 23 12/01/20 13:00 BP 117/72 12/01/20 13:00 Pulse Ox 95 12/01/20 13:00 Intake & Output 11/30/20 12/01/20 12/01/20 18:59 06:59 18:59 Intake Total 817 1020 750 Output Total 2640 1140 460 Balance -1823 -120 290 Weight 84.8 kg 84.8 kg Intake: IV 595 540 270 Mvi, Adult No.4 with Vit 585 540 270 K 10 ml Trace (Conc-1Ml/ Dose) 1 ml In Amino Acid 5%-D20w+Lytes*E* 1,000 ml @ 45 mls/hr IV .[id number] [facility] Rx#:[id number] Sodium Chloride 0.9% 1, 10 000 ml @ 50 mls/hr IV . Q20H [facility] Rx#:[id number] Tube Feeding 480 480 Blood Product 222 Ffp Pher Conval Covid19 222 Acda 2 Unit [id number] Output: Urine 2640 1140 460 Other: Voiding Method Indwelling Catheter Indwelling Catheter - Exam GENERAL EXAM: Revealed 60-year-old female on BiPAP, 16/04, FiO2 is 65% today HEENT: Head is atraumatic, normocephalic, PERRLA, EOMI, nonicteric sclerae. Moist mucous membranes. No neck masses no JVD no stridor CHEST: No chest wall deformity. Symmetrical expansion. LUNGS: Minimal crackles bilaterally. CVS: Regular rate and rhythm, normal S1 and S2, no gallops, no murmurs, no rubs ABDOMEN: Soft, nontender. No hepatosplenomegaly, normal bowel sounds, no guarding or rigidity. EXTREMITIES: No clubbing, no edema, no cyanosis, 2+ pulses and upper and lower extremities. MUSCULOSKELETAL: Muscle strength and tone normal. SPINE: No scoliosis or deformity SKIN: No rashes CENTRAL NERVOUS SYSTEM: Alert and oriented -3. No focal deficits, tone is normal in all 4 extremities. PSYCHIATRIC: Alert and oriented -3. Appropriate affect. Intact judgment and insight. - Labs CBC & Chem 7: 12/01/20 03:37 12/01/20 03:37 Labs: Abnormal Lab Results - Last 24 Hours (Table) 11/30/20 11/30/20 12/01/20 Range/Units 15:59 19:40 00:04 RBC (3.80-5.40) m/uL Hgb (11.4-16.0) gm/dL Hct (34.0-46.0) % RDW (11.5-15.5) % Neutrophils # (1.3-7.7) k/uL Lymphocytes # (1.0-4.8) k/uL Potassium (3.5-5.1) mmol/L BUN (7-17) mg/dL Glucose (74-99) mg/dL POC Glucose (mg/dL) 192 H 180 H 203 H (75-99) mg/dL Phosphorus (2.5-4.5) mg/dL AST (14-36) U/L ALT (4-34) U/L Alkaline Phosphatase (38-126) U/L Total Protein (6.3-8.2) g/dL Albumin (3.5-5.0) g/dL 12/01/20 12/01/20 12/01/20 Range/Units 03:37 03:37 07:41 RBC 3.54 L (3.80-5.40) m/uL Hgb 10.5 L (11.4-16.0) gm/dL Hct 31.6 L (34.0-46.0) % RDW 16.5 H (11.5-15.5) % Neutrophils # 8.2 H (1.3-7.7) k/uL Lymphocytes # 0.3 L (1.0-4.8) k/uL Potassium 3.4 L (3.5-5.1) mmol/L BUN 26 H (7-17) mg/dL Glucose 165 H (74-99) mg/dL POC Glucose (mg/dL) 131 H (75-99) mg/dL Phosphorus 4.6 H (2.5-4.5) mg/dL AST 38 H (14-36) U/L ALT 45 H (4-34) U/L Alkaline Phosphatase 213 H (38-126) U/L Total Protein 5.0 L (6.3-8.2) g/dL Albumin 2.7 L (3.5-5.0) g/dL 12/01/20 Range/Units 11:45 RBC (3.80-5.40) m/uL Hgb (11.4-16.0) gm/dL Hct (34.0-46.0) % RDW (11.5-15.5) % Neutrophils # (1.3-7.7) k/uL Lymphocytes # (1.0-4.8) k/uL Potassium (3.5-5.1) mmol/L BUN (7-17) mg/dL Glucose (74-99) mg/dL POC Glucose (mg/dL) 181 H (75-99) mg/dL Phosphorus (2.5-4.5) mg/dL AST (14-36) U/L ALT (4-34) U/L Alkaline Phosphatase (38-126) U/L Total Protein (6.3-8.2) g/dL Albumin (3.5-5.0) g/dL Assessment and Plan Assessment: Impression: Acute hypoxic respiratory failure secondary to covid 19 pneumonitis. Remains on BiPAP. 14/6. 65% FiO2.. Remains on Decadron . Received remdesivir and actemra. Colchicine remains 0.6 mg twice a day. She is also on Lovenox. Remains on TPN for nutritional support. Although the patient is having some fe edings on her own orally. But not enough to meet her nutritional requirements Chronic persistent bronchial asthma. Chronic gout. Peripheral neuropathy Peripheral vessel occlusive disease Chronic normocytic anemia Ex-smoker Hiatal hernia with reflux. Hypertension. Steroids induced hyperglycemia. Recommendation: Continue BiPAP, and titrate FiO2 accordingly. Today she is down to 65% which is encouraging. Chest x-ray is showing slight improvement. Continue GI and DVT prophylaxis. Continue colchicine, 0.6 mg twice a day. Continue the Covid 19 cocktail. Continue TPN via PICC line. Prognosis remains guarded. We'll continue to follow. Time with Patient: Less than 30
--- NOTE | 2020-12-01 13:40 | P.PN ---
Subjective COVID 19 related pneumonia and hypoxemia Acute hypoxic respiratory failure 60-year-old female came in with compensative shortness of breath found to have very low oxygen saturations patient was diagnosed with Covid 19 about 3 days ago patient had having symptoms for about a week. Patient was also company of fever chills patient has low-grade fever here. Patient was seen in [facility] subsequently transferred here patient is presently on 15 L of oxygen. Patient does have history of COPD. Patient was started on Decadron. Pulmonary was consulted. She was complaining of for cough without any significant sputum production. 11/24/2020, patient is seen for a follow-up. The patient is currently still on a BiPAP with an FiO2 of 100%; feeling slightly better; remains afebrile. The chest x-ray remains unchanged and the patient continues to have diffuse but the pulmonary infiltrates consistent with code 19 related pneumonia. Her inflammatory markers are quite abnormal. At LDH from today was 1006 and 41, and her CRP was 59. Note that the CRP level was slightly lower. The pro-calcitonin level from yesterday was 0.18. CPKs nonelevated and a triglyceride level is at 154. The patient has a d-dimer of 14.8. She remains on Lovenox at a dose of 40 mg subcu every 12 hours which is in the order of 0.5 mg per KG every 12 hours. In terms of treatment, the patient remains on Decadron 20 mg IV on the daily basis and she is on Remdesivir and she also received 2 doses of Actemra 400 mg IV. Her oral intake was noted to be quite low as the patient is unable to get herself off the BiPAP for oral intake. Based on that, the patient will be given a PICC line today and she'll be started on TPN for nutritional support to maintain her nutritional status. No fever. No chills. Hemodynamically stable. No other issues for now. Her CODE STATUS is full code. 11/25/2020 patient is seen and evaluated in room for a follow-up; patient became hypoxic ag ain and she had to be placed back on an FiO2 of 100% with a BiPAP pressure of 14/6 cm of water. Her current respiratory rate is in the order of 22-30 breaths per minute. The patient is comfortable. She is tolerating the treatment well. Laboratory review shows d-dimer is up to 30.01. Rest of the inflammatory markers show an LDH level of 1862 and the CRP is down to 40.8. Pro-calcitonin level was at 0.18. patient has received Lovenox at a dose of 40 mg subcu every 12 hours which is in the order of 0.5 mg per KG every 12 hours. In terms of treatment, the patient remains on Decadron 20 mg IV on the daily basis they #4 and she is on Remdesivir #5 and she also received 2 doses of Actemra 400 mg IV. Meanwhile be also inserted a PICC line in the left upper extremity and the patient was started on TPN for nutritional support. No altered mentation pH is resting comfortably in bed. Is slightly higher since the patient was started on TPN and septal 187 and the will going to put this patient on sliding scale blood sugar coverage. 11/26/2020 Patient remains in ICU and remains awake and alert; currently on BiPAP; FiO2 was weaned down to 70% with stable O2 saturation; patient remains on high-dose Decadron in form of 20 mg IV daily; inflammatory markers slowly trending down including CRP of 22, LDH of 1776, d-dimer 23.4 Patient is currently on TPN for nutrition at a rate of 45 hoursalong with blood glucose monitoring every 4 hours with insulin sliding scale; remains stable on IV fluids at 50 mL per hour Patient is being followed by pulmonology service and recommended to continue with Lovenox 40 mg subcu every 12 hours, Decadron 20 mg IV daily along with completing REM treatment; patient has received 2 doses of Actemra 400 mg IV. 11/27/2020 Patient remains on BiPAP with FiO2 of around 670%. Patient has some improvement in inflammatory markers. 11/28/2019 Patient remains on BiPAP with FiO2 of around 75%. 11/29/2019 No significant improvement in her respiratory status patient remains on the same Covid 19 cocktail as as today. Inflammatory markers have come down and stabilized. 11/30/2019 Patient remains on BiPAPand change in his in her respiratory status or BiPAP settings. Patient is being dialyzed at this time as there is a concern of possible CHF as well patient remains on TPN and colchicine 12/01/2019 Patient is off BiPAP and is on airvo, patient remains on Lasix with significant improvement in her respiratory status. Chest x-ray is also showing some improvement. Patient remains on TPN which is being tapered down patient was started on a by mouth diet patient is presently on and wasn't FiO2 and 65 L of oxygen Review of systems: Unable to obtain All inpatient medications were reviewed and appropriate changes in these medications as dictated in the interval history and assessment and plan. Objective - Vital Signs Vital signs: Vital Signs Temp 98.1 F 12/01/20 12:00 Pulse 65 12/01/20 13:00 Resp 23 12/01/20 13:00 BP 117/72 12/01/20 13:00 Pulse Ox 95 12/01/20 13:00 Intake & Output 11/30/20 12/01/20 12/01/20 18:59 06:59 18:59 Intake Total 817 1020 750 Output Total 2640 1140 460 Balance -1823 -120 290 Weight 84.8 kg 84.8 kg Intake: IV 595 540 270 Mvi, Adult No.4 with Vit 585 540 270 K 10 ml Trace (Conc-1Ml/ Dose) 1 ml In Amino Acid 5%-D20w+Lytes*E* 1,000 ml @ 45 mls/hr IV .[id number] [facility] Rx#:[id number] Sodium Chloride 0.9% 1, 10 000 ml @ 50 mls/hr IV . Q20H [facility] Rx#:[id number] Tube Feeding 480 480 Blood Product 222 Ffp Pher Conval Covid19 222 Acda 2 Unit [id number] Output: Urine 2640 1140 460 Other: Voiding Method Indwelling Catheter Indwelling Catheter Indwelling Catheter - Exam PHYSICAL EXAMINATION: GENERAL: The patient is alert and oriented x3, not in any acute distress. Well developed, well nourished. HEENT: Pupils are round and equally reacting to light. EOMI. No scleral icterus. No conjunctival pallor. Normocephalic, atraumatic. No pharyngeal erythema. No thyromegaly. CARDIOVASCULAR: S1 and S2 present. No murmurs, rubs, or gallops. PULMONARY: There is some rhonchi and wheezing bilaterally ABDOMEN: Soft, nontender, nondistended, normoactive bowel sounds. No palpable organomegaly. MUSCULOSKELETAL: No joint swelling or deformity. EXTREMITIES: No cyanosis, clubbing, patient does have some pedal edema NEUROLOGICAL: Gross neurological examination did not reveal any focal deficits. SKIN: No rashes. Note: Because of COVID 19 isolation, some of the history and physical exam findings are indirect and obtained from nursing staff, and other physician examinations to avoid unnecessary contact with the patient. - Labs CBC & Chem 7: 12/01/20 03:37 12/01/20 03:37 Labs: Abnormal Lab Results - Last 24 Hours (Table) 11/30/20 11/30/20 12/01/20 Range/Units 15:59 19:40 00:04 RBC (3.80-5.40) m/uL Hgb (11.4-16.0) gm/dL Hct (34.0-46.0) % RDW (11.5-15.5) % Neutrophils # (1.3-7.7) k/uL Lymphocytes # (1.0-4.8) k/uL Potassium (3.5-5.1) mmol/L BUN (7-17) mg/dL Glucose (74-99) mg/dL POC Glucose (mg/dL) 192 H 180 H 203 H (75-99) mg/dL Phosphorus (2.5-4.5) mg/dL AST (14-36) U/L ALT (4-34) U/L Alkaline Phosphatase (38-126) U/L Total Protein (6.3-8.2) g/dL Albumin (3.5-5.0) g/dL 12/01/20 12/01/20 12/01/20 Range/Units 03:37 03:37 07:41 RBC 3.54 L (3.80-5.40) m/uL Hgb 10.5 L (11.4-16.0) gm/dL Hct 31.6 L (34.0-46.0) % RDW 16.5 H (11.5-15.5) % Neutrophils # 8.2 H (1.3-7.7) k/uL Lymphocytes # 0.3 L (1.0-4.8) k/uL Potassium 3.4 L (3.5-5.1) mmol/L BUN 26 H (7-17) mg/dL Glucose 165 H (74-99) mg/dL POC Glucose (mg/dL) 131 H (75-99) mg/dL Phosphorus 4.6 H (2.5-4.5) mg/dL AST 38 H (14-36) U/L ALT 45 H (4-34) U/L Alkaline Phosphatase 213 H (38-126) U/L Total Protein 5.0 L (6.3-8.2) g/dL Albumin 2.7 L (3.5-5.0) g/dL 12/01/20 Range/Units 11:45 RBC (3.80-5.40) m/uL Hgb (11.4-16.0) gm/dL Hct (34.0-46.0) % RDW (11.5-15.5) % Neutrophils # (1.3-7.7) k/uL Lymphocytes # (1.0-4.8) k/uL Potassium (3.5-5.1) mmol/L BUN (7-17) mg/dL Glucose (74-99) mg/dL POC Glucose (mg/dL) 181 H (75-99) mg/dL Phosphorus (2.5-4.5) mg/dL AST (14-36) U/L ALT (4-34) U/L Alkaline Phosphatase (38-126) U/L Total Protein (6.3-8.2) g/dL Albumin (3.5-5.0) g/dL Assessment and Plan Plan: -Acute hypoxic respiratory failure: Patient is on high flow oxygen with airvo Winter off the BiPAP.. Secondary to Covid 19 pneumonia patient is on Decadron , on the GI prophylaxis as well as Lovenox for DVT prophylaxis. Completed remdesivir and actemra. Was started on colchicine as an anti-inflammatory and patient is on TPN for nutrition which is being tapered down and patient was started on by mouth diet -COPD with mild acute exacerbation secondary to Covid 19. Pulmonology following the patient -Elevated blood sugars secondary to Decadron patient is an before meals &at bedtime sliding scale insulin -Hyperlipidemia -Hypothyroidism -History of gout for which she'll patient is on colchicine which will be continued -Peripheral edema improved now -Peripheral vascular disease -Hiatal hernia with gastroesophageal reflux disease patient is on Prilosec CODE STATUS; full code
[2020-12-01 17:36] LABS: Glucose,Whole Blood 168 mg/dL (75-99)
[2020-12-01] MEDS: FAT EMULSION 20% 250 ML in EMPTY BAG 1 BAG IV SCH (17:49)
[2020-12-01] MEDS: GABAPENTIN 300 MG CAP PO SCH (20:22)
[2020-12-01] MEDS: MONTELUKAST 10 MG TAB PO SCH (20:22)
[2020-12-01] MEDS: PRAMIPEXOLE 0.5 MG TAB PO SCH (20:22)
[2020-12-01] MEDS: ATORVASTATIN 40 MG TAB PO SCH (20:22)
[2020-12-01] MEDS: MELATONIN 3 MG TABLET PO SCH (20:22)
[2020-12-01] MEDS: THEOPHYLLINE 24 HOUR 300 MG CAP.ER.24H PO SCH (20:22)
[2020-12-01 23:49] LABS: Glucose,Whole Blood 179 mg/dL (75-99)
[2020-12-02] MEDS: INSULIN ASPART (NovoLOG) 100 UNIT/ML VIAL SQ SCH ×4 (00:21→17:21)
[2020-12-02] MEDS: MVI, ADULT NO.4 WITH VIT K 10 ML, TRACE (CONC-1ML/DOSE) 1 ML, POTASSIUM CHLORIDE 20 MEQ... IV SCH ×4 (00:22)
[2020-12-02] MEDS: methylPREDNISolone SOD SUCCI 125 MG/2 ML VIAL IV SCH ×4 (00:22→17:45)
[2020-12-02 04:23] LABS: Anisocytosis Slight; Basophils % (A) 0 %; Eosinophils % (A) 0 %; HCT 32.1 % (34.0-46.0); HGB 10.7 gm/dL (11.4-16.0); Hypochromasia Slight; Lymphocytes # (A) 0.3 k/uL (1.0-4.8); Lymphocytes % (A) 3 %; MCH 29.7 pg (25.0-35.0); MCHC 33.2 g/dL (31.0-37.0); MCV 89.7 fL (80.0-100.0); Mean Platelet Volume 7.7; Monocytes # (A) 0.5 k/uL (0-1.0); Monocytes % (A) 5 %; Neutrophils # (A) 10.7 k/uL (1.3-7.7); Neutrophils % (A) 91 %; Platelet Count 211 k/uL (150-450); RBC 3.58 m/uL (3.80-5.40); RDW 16.7 % (11.5-15.5); WBC 11.8 k/uL (3.8-10.6)
[2020-12-02 04:58] LABS: ALT 48 U/L (4-34); AST 34 U/L (14-36); African American GFR (CKD) >90 (>60 ml/min/1.73 sqM); Albumin 2.8 g/dL (3.5-5.0); Alkaline Phosphatase 197 U/L (38-126); Anion Gap 6 mmol/L; Blood Urea Nitrogen 29 mg/dL (7-17); Carbon Dioxide 31 mmol/L (22-30); Chloride 99 mmol/L (98-107); Glucose 167 mg/dL (74-99); Magnesium 2.3 mg/dL (1.6-2.3); Non-African American GFR(CKD) >90 (>60 ml/min/1.73 sqM); Phosphorus 4.4 mg/dL (2.5-4.5); Potassium 3.5 mmol/L (3.5-5.1); Sodium 136 mmol/L (137-145); Total Bilirubin 0.5 mg/dL (0.2-1.3); Total Protein 5.1 g/dL (6.3-8.2)
[2020-12-02] MEDS: POTASSIUM CHLORIDE ER 20 MEQ TAB.ER PO SCH ×2 (05:37→06:41)
[2020-12-02] MEDS: LEVOTHYROXINE 75 MCG TAB PO SCH (05:38)
[2020-12-02] MEDS: TIOTROPIUM 2.5 MCG INHALER INHALATION SCH (07:53)
[2020-12-02] MEDS: SYMBICORT 160-4.5 MCG INHALER INHALATION SCH ×2 (07:53→20:10)
[2020-12-02] MEDS: ALBUTEROL HFA INHALER INHALATION SCH ×4 (07:53→20:09)
[2020-12-02] MEDS: GABAPENTIN 100 MG CAP PO SCH ×2 (08:01→12:45)
[2020-12-02] MEDS: FUROSEMIDE 10 MG/ML 4 ML VIAL IV SCH ×2 (08:01→19:31)
[2020-12-02] MEDS: ZINC SULFATE 220 MG CAP PO SCH (08:02)
[2020-12-02] MEDS: FAMOTIDINE 20 MG TAB PO SCH ×2 (08:02→19:31)
[2020-12-02] MEDS: allopurinoL 300 MG TAB PO SCH (08:02)
[2020-12-02] MEDS: SUCRALFATE 1 GM TAB PO SCH ×4 (08:02→19:31)
[2020-12-02] MEDS: ENOXAPARIN 40 MG/0.4 ML SYRINGE SQ SCH ×2 (08:02→19:31)
[2020-12-02] MEDS: ASCORBIC ACID 500 MG TAB PO SCH (08:02)
[2020-12-02] MEDS: COLCHICINE 0.6 MG EACH PO SCH ×2 (08:02→19:31)
--- NOTE | 2020-12-02 08:16 | XR ---
EXAMINATION TYPE: XR chest 1V portable DATE OF EXAM: 12/02/2020 COMPARISON: Prior chest x-ray 12/01/2020 HISTORY: Covid pneumonia TECHNIQUE: Single frontal view of the chest is obtained. FINDINGS: There is not significant interval change. IMPRESSION: Findings consistent with patient's history.
--- NOTE | 2020-12-02 10:06 | P.PN ---
Subjective COVID 19 related pneumonia and hypoxemia Acute hypoxic respiratory failure 60-year-old female came in with compensative shortness of breath found to have very low oxygen saturations patient was diagnosed with Covid 19 about 3 days ago patient had having symptoms for about a week. Patient was also company of fever chills patient has low-grade fever here. Patient was seen in [facility] subsequently transferred here patient is presently on 15 L of oxygen. Patient does have history of COPD. Patient was started on Decadron. Pulmonary was consulted. She was complaining of for cough without any significant sputum production. 11/24/2020, patient is seen for a follow-up. The patient is currently still on a BiPAP with an FiO2 of 100%; feeling slightly better; remains afebrile. The chest x-ray remains unchanged and the patient continues to have diffuse but the pulmonary infiltrates consistent with code 19 related pneumonia. Her inflammatory markers are quite abnormal. At LDH from today was 1006 and 41, and her CRP was 59. Note that the CRP level was slightly lower. The pro-calcitonin level from yesterday was 0.18. CPKs nonelevated and a triglyceride level is at 154. The patient has a d-dimer of 14.8. She remains on Lovenox at a dose of 40 mg subcu every 12 hours which is in the order of 0.5 mg per KG every 12 hours. In terms of treatment, the patient remains on Decadron 20 mg IV on the daily basis and she is on Remdesivir and she also received 2 doses of Actemra 400 mg IV. Her oral intake was noted to be quite low as the patient is unable to get herself off the BiPAP for oral intake. Based on that, the patient will be given a PICC line today and she'll be started on TPN for nutritional support to maintain her nutritional status. No fever. No chills. Hemodynamically stable. No other issues for now. Her CODE STATUS is full code. 11/25/2020 patient is seen and evaluated in room for a follow-up; patient became hypoxic ag ain and she had to be placed back on an FiO2 of 100% with a BiPAP pressure of 14/6 cm of water. Her current respiratory rate is in the order of 22-30 breaths per minute. The patient is comfortable. She is tolerating the treatment well. Laboratory review shows d-dimer is up to 30.01. Rest of the inflammatory markers show an LDH level of 1862 and the CRP is down to 40.8. Pro-calcitonin level was at 0.18. patient has received Lovenox at a dose of 40 mg subcu every 12 hours which is in the order of 0.5 mg per KG every 12 hours. In terms of treatment, the patient remains on Decadron 20 mg IV on the daily basis they #4 and she is on Remdesivir #5 and she also received 2 doses of Actemra 400 mg IV. Meanwhile be also inserted a PICC line in the left upper extremity and the patient was started on TPN for nutritional support. No altered mentation pH is resting comfortably in bed. Is slightly higher since the patient was started on TPN and septal 187 and the will going to put this patient on sliding scale blood sugar coverage. 11/26/2020 Patient remains in ICU and remains awake and alert; currently on BiPAP; FiO2 was weaned down to 70% with stable O2 saturation; patient remains on high-dose Decadron in form of 20 mg IV daily; inflammatory markers slowly trending down including CRP of 22, LDH of 1776, d-dimer 23.4 Patient is currently on TPN for nutrition at a rate of 45 hoursalong with blood glucose monitoring every 4 hours with insulin sliding scale; remains stable on IV fluids at 50 mL per hour Patient is being followed by pulmonology service and recommended to continue with Lovenox 40 mg subcu every 12 hours, Decadron 20 mg IV daily along with completing REM treatment; patient has received 2 doses of Actemra 400 mg IV. 11/27/2020 Patient remains on BiPAP with FiO2 of around 670%. Patient has some improvement in inflammatory markers. 11/28/2019 Patient remains on BiPAP with FiO2 of around 75%. 11/29/2019 No significant improvement in her respiratory status patient remains on the same Covid 19 cocktail as as today. Inflammatory markers have come down and stabilized. 11/30/2019 Patient remains on BiPAPand change in his in her respiratory status or BiPAP settings. Patient is being dialyzed at this time as there is a concern of possible CHF as well patient remains on TPN and colchicine 12/01/2019 Patient is off BiPAP and is on airvo, patient remains on Lasix with significant improvement in her respiratory status. Chest x-ray is also showing some improvement. Patient remains on TPN which is being tapered down patient was started on a by mouth diet patient is presently on and wasn't FiO2 and 65 L of oxygen 12/02/2019 Patient was pretty status remains the same patient is able to eat today we will be enough TPN today. Review of systems: Unable to obtain All inpatient medications were reviewed and appropriate changes in these medications as dictated in the interval history and assessment and plan. Objective - Vital Signs Vital signs: Vital Signs Temp 97.9 F 12/02/20 08:00 Pulse 85 12/02/20 09:00 Resp 28 H 12/02/20 09:00 BP 113/63 12/02/20 09:00 Pulse Ox 92 L 12/02/20 09:00 Intake & Output 12/01/20 12/02/20 12/02/20 18:59 06:59 18:59 Intake Total 1177 2251.5 525 Output Total 795 985 185 Balance 382 1266.5 340 Weight 84.8 kg 82.7 kg Intake: IV 495 839 165 Fat Emulsion 20% 250 ml 189 In Empty Bag 1 bag @ 21 mls/hr IV [id number] [facility] Rx#: [id number] KVO 110 30 Mvi, Adult No.4 with Vit 495 270 K 10 ml Trace (Conc-1Ml/ Dose) 1 ml In Amino Acid 5%-D20w+Lytes*E* 1,000 ml @ 45 mls/hr IV .[id number] [facility] Rx#:[id number] Mvi, Adult No.4 with Vit 270 135 K 10 ml Trace (Conc-1Ml/ Dose) 1 ml Potassium Chloride 20 meq In Amino Acid 5%-D20w+Lytes*E* 1, 000 ml @ 45 mls/hr IV . [id number] [facility] Rx#:[id number] Intake, IV Titration 1009.5 Amount Mvi, Adult No.4 with Vit 1009.5 K 10 ml Trace (Conc-1Ml/ Dose) 1 ml Potassium Chloride 20 meq In Amino Acid 5%-D20w+Lytes*E* 1, 000 ml @ 45 mls/hr IV . [id number] [facility] Rx#:[id number] Oral 360 360 Tube Feeding 652 43 Other 30 Output: Urine 795 985 185 Other: Voiding Method Indwelling Catheter Indwelling Catheter Indwelling Catheter - Exam PHYSICAL EXAMINATION: GENERAL: The patient is alert and oriented x3, not in any acute distress. Well developed, well nourished. HEENT: Pupils are round and equally reacting to light. EOMI. No scleral icterus. No conjunctival pallor. Normocephalic, atraumatic. No pharyngeal erythema. No thyromegaly. CARDIOVASCULAR: S1 and S2 present. No murmurs, rubs, or gallops. PULMONARY: There is some rhonchi and wheezing bilaterally ABDOMEN: Soft, nontender, nondistended, normoactive bowel sounds. No palpable organomegaly. MUSCULOSKELETAL: No joint swelling or deformity. EXTREMITIES: No cyanosis, clubbing, patient does have some pedal edema NEUROLOGICAL: Gross neurological examination did not reveal any focal deficits. SKIN: No rashes. Note: [facility], some of the history and physical exam findings are indirect and obtained from nursing staff, and other physician examinations to avoid unnecessary contact with the patient. - Labs CBC & Chem 7: 12/02/20 03:54 12/02/20 03:54 Labs: Abnormal Lab Results - Last 24 Hours (Table) 12/01/20 12/01/20 12/01/20 Range/Units 11:45 17:34 23:47 WBC (3.8-10.6) k/uL RBC (3.80-5.40) m/uL Hgb (11.4-16.0) gm/dL Hct (34.0-46.0) % RDW (11.5-15.5) % Neutrophils # (1.3-7.7) k/uL Lymphocytes # (1.0-4.8) k/uL Sodium (137-145) mmol/L Carbon Dioxide (22-30) mmol/L BUN (7-17) mg/dL Glucose (74-99) mg/dL POC Glucose (mg/dL) 181 H 168 H 179 H (75-99) mg/dL ALT (4-34) U/L Alkaline Phosphatase (38-126) U/L Total Protein (6.3-8.2) g/dL Albumin (3.5-5.0) g/dL 12/02/20 12/02/20 Range/Units 03:54 03:54 WBC 11.8 H (3.8-10.6) k/uL RBC 3.58 L (3.80-5.40) m/uL Hgb 10.7 L (11.4-16.0) gm/dL Hct 32.1 L (34.0-46.0) % RDW 16.7 H (11.5-15.5) % Neutrophils # 10.7 H (1.3-7.7) k/uL Lymphocytes # 0.3 L (1.0-4.8) k/uL Sodium 136 L (137-145) mmol/L Carbon Dioxide 31 H (22-30) mmol/L BUN 29 H (7-17) mg/dL Glucose 167 H (74-99) mg/dL POC Glucose (mg/dL) (75-99) mg/dL ALT 48 H (4-34) U/L Alkaline Phosphatase 197 H (38-126) U/L Total Protein 5.1 L (6.3-8.2) g/dL Albumin 2.8 L (3.5-5.0) g/dL Assessment and Plan Plan: -Acute hypoxic respiratory failure: Patient is on high flow oxygen with airvo Winter off the BiPAP.. Secondary to Covid 19 pneumonia patient is on Decadron , on the GI prophylaxis as well as Lovenox for DVT prophylaxis. Completed remdesivir and actemra. Was started on colchicine as an anti-inflammatory and patient is on TPN for nutrition which is being tapered down and patient was started on by mouth diet -COPD with mild acute exacerbation secondary to Covid 19. Pulmonology following the patient -Elevated blood sugars secondary to Decadron patient is an before meals &at bedtime sliding scale insulin -Hyperlipidemia -Hypothyroidism -History of gout for which she'll patient is on colchicine which will be continued -Peripheral edema improved now -Peripheral vascular disease -Hiatal hernia with gastroesophageal reflux disease patient is on Prilosec CODE STATUS; full code
[2020-12-02 11:20] LABS: Glucose,Whole Blood 203 mg/dL (75-99)
--- NOTE | 2020-12-02 12:28 | P.PN ---
Subjective Progress Note Date: 12/02/20 Principal diagnosis: Acute hypoxic respiratory failure secondary to covid 19 pneumonitis 60-year-old here patient hospitalized for COVID 19 related pneumonia and hypoxemia. The patient was found to have a low oxygen saturation. She was diagnosed having COVID 19 on 11/20/2020. However, her symptoms started approximately a week prior to that as the patient started having generalized weakness, fever and chills. In the hospital at [place], she was found to be hypoxic and she was placed on 15 L of oxygen by nasal cannula. She was started on Decadron and following that she was transferred to [facility] on 11/20/2020 for further evaluation. On today's evaluation the patient remains on 15 L of oxygen by nasal cannula. Laboratory markers show a LDH of 1482, her CRP is 239, her pro-calcitonin level is at 1.28, her white cell count is at 4.5 and the patient has a lymphopenia with a lymphocyte count of 0.7. The electrolytes all within normal limits. Renal function is within normal limits. Glucose slightly elevated at 235. The chest x-ray is showing bilateral pulmonary infiltrates mainly involving the left lung and or significantly in the right upper lobe area. The patient is known to have COPD/asthma. The patient is also has history of hypothyroidism, hyperlipidemia and gout. She has history of hiatal hernia.. She is on Decadron 6 mg by mouth daily. She is on no DVT prophylaxis is receiving 40 mg of Lovenox her d-dimer level is at 0.36. On 11/25/2020, I'm seeing the patient for a follow-up. After doing some attempts to drop down the FiO2, overnight the patient became hypoxic again and she had to be placed back on an FiO2 of 100% with a BiPAP pressure of 14/6 cm of water. Her current respiratory rate is in the order of 22-30 breaths per minute. Minute ventilation is improved compared to yesterday while being on a BiPAP machine. The patient is comfortable. She is tolerating the treatment well. Her d-dimer is up to 30.01. Rest of the inflammatory markers show an LDH level of 1862 and the CRP is down to 40.8. Pro-calcitonin level was at 0.18. The chest x-ray from today still pending. Meanwhile, as far as treatment, the patient has received Lovenox at a dose of 40 mg subcu every 12 hours which is in the order of 0.5 mg per KG every 12 hours. In terms of treatment, the patient remains on Decadron 20 mg IV on the daily basis they #4 and she is on Remdesivir #5 and she also received 2 doses of Actemra 400 mg IV. Meanwhile be also inserted a PICC line in the left upper extremity and the patient was started on TPN for nutritional support. No altered mentation pH is resting comfortably in bed. Is slightly higher since the patient was started on TPN and septal 187 and the will going to put this patient on sliding scale blood sugar coverage. 11/26/2020, the patient remains in high spirits. Although BiPAP dependent, she seems to be awake and alert and breathing okay. She is still tachypneic with a respiratory rate in the high 20s low 30s. Minute ventilation ranging between 18-22 L on a BiPAP at a pressure of 14/6 cm of water. FiO2 was weaned down to 70% and the patient remains on high dose Decadron 20 mg IV. Inflammatory markers show a CRP level of 22 which is lower, LDH of 1776 which is lower, and her d-dimer is 23.4 which is also lower. She is awake and alert and following commands pH is receiving TPN for nutritional support. She is on insulin subcu every 4 hours per sliding scale for blood sugar control. No nausea. No vomiting. No diarrhea. No signs of any fluid overload. TPN is running at the rate of 45 mL an hour. IV fluids is running at the rate of 50 mL an hour. Meanwhile, as far as treatment, the patient has received Lovenox at a dose of 40 mg subcu every 12 hours which is in the order of 0.5 mg per KG every 12 hours. In terms of treatment, the patient remains on Decadron 20 mg IV on the daily basis they #5 and she is on Remdesivir #5 and she also received 2 doses of Actemra 400 mg IV. Reevaluated today on 11/27/2020, patient remains on BiPAP, she is on IPAP of 12 and EPAP of 6, FiO2 remains at 75%. Patient desaturates at night, seems to do well during the day. Patient is still on the Covid 19 cocktail. She remains on Decadron, she is on Lovenox, she received remdesivir, and she also received actemra. Patient is on colchicine, and I went ahead and double the dose to 0.6 mg twice a day. Her d-dimer remains elevated. But seems to be coming down low. Chest x-ray continues to show bilateral infiltrates. Patient remains marginal at best. CBC is relatively normal electroencephalogram normal renal profile is normal. LDH is 1784, C-reactive protein is 9.7. Reevaluated today on 11/28/2020, patient remains in the ICU, remains on BiPAP, her IPAP was increased to 14, EPAP remains at 6. Remains at 75% FiO2, O2 saturation is in the low 90s. Patient is receiving TPN, she is also on the Covid 19 cocktail. Today her d-dimer is noted to be high LDH is high, patient looks tired, frail and chronically ill. Her pulmonary status is basically about the same, chest x-ray is basically unchanged continues to show bilateral interstitial infiltrates. Possibility of underlying CHF is not entirely ruled out, felt to be less likely, however will give the patient a dose of Lasix 40 mg IV push 1 today. And I will cut down her IV fluid to KVO. D-dimer is 24.16. WBC count is 13, electrolytes and renal profile are normal. Reevaluated today on 11/29/2020, patient remains in the ICU, remains on BiPAP with IPAP of 14 and EPAP of 6, FiO2 is 75%, O2 saturation is running in the low 90s. Patient is on the Covid 19 cocktail, diuresed significantly with one dose of Lasix yesterday, and I will give her another dose today. Remains on TPN via PICC line. Remains on colchicine. And overall she is about the same. Chest x- ray is also about the same. CBC today is relatively normal left lites are normal, inflammatory markers were not done today. D-dimer is 31.3 Reevaluated today on 11/30/2020, remains in the ICU, she is basically about the same however her FiO2 requirement went up, she is now on 90% and set of 75% FiO2, BiPAP remains at 14/6. Patient remains on TPN, chest x-ray is showing interstitial infiltrates/edema, hence I recommended more Lasix to be given on a regular basis twice a day. Patient remains on TPN, remains on colchicine, CBC is relatively normal, d-dimer is 21.38. Electrolytesenc normal renal profile is normal. Her LDH is 2043, and her C-reactive protein is less than 5. Her LDH is basically about the same over the last few days Reevaluated today on 12/01/2020, remains in the ICU, remains on BiPAP, however the FiO2 is down to 65%, IPAP is 14, EPAP is 6, patient is holding her saturations in the low 90, roughly 93%. Yesterday she tolerated 45 minutes of non-rebreather mask and high flow nasal cannula. Her IV fluids remains at KVO, remains on Lasix, patient is in negative balance, she is still on TPN, overall the patient has made significant improvement over the last 24 hours, and she is feeling better compared to how she felt initially. Less shortness of breath, seems to be more comfortable with her BiPAP. Remains on Lasix 40 mg IV push every 12 hours WBC count today is 8.8 hemoglobin is 10.5, and left lites are normal potassium is a bit low being corrected as per protocol. No inflammatory markers were ordered to be done today. Chest x-ray minimal slight improvement The patient is seen today 12/02/2020 in follow-up in the intensive care unit. She is currently sitting up in a chair at the bedside. Awake and alert in no acute distress. She has been converted from the BiPAP to AirVO high flow oxygen at 60 L and 80% FiO2. Yesterday she was able to be off the BiPAP for 2-3 hours during mealtime and tolerated this well. Her appetite has picked up and she is eating at least half of her meals. She remains on TPN as well. Chest x-ray is showing some improvement. She is feeling stronger today. White count 11.8. Hemoglobin 10.7. Sodium 136. Potassium 3.5. Creatinine 0.64. Objective - Vital Signs Vital signs: Vital Signs Temp 97.9 F 12/02/20 08:00 Pulse 85 12/02/20 09:00 Resp 28 H 12/02/20 09:00 BP 113/63 12/02/20 09:00 Pulse Ox 95 12/02/20 11:46 Intake & Output 01/29/21 01/30/21 01/30/21 18:59 06:59 18:59 Intake Total 1177 2251.5 525 Output Total 795 985 185 Balance 382 1266.5 340 Weight 84.8 kg 82.7 kg Intake: IV 495 839 165 Fat Emulsion 20% 250 ml 189 In Empty Bag 1 bag @ 21 mls/hr IV MoWeFr [facility] Rx#: [id number] KVO 110 30 Mvi, Adult No.4 with Vit 495 270 K 10 ml Trace (Conc-1Ml/ Dose) 1 ml In Amino Acid 5%-D20w+Lytes*E* 1,000 ml @ 45 mls/hr IV .[id number] [facility] Rx#:[id number] Mvi, Adult No.4 with Vit 270 135 K 10 ml Trace (Conc-1Ml/ Dose) 1 ml Potassium Chloride 20 meq In Amino Acid 5%-D20w+Lytes*E* 1, 000 ml @ 45 mls/hr IV . [id number] [facility] Rx#:[id number] Intake, IV Titration 1009.5 Amount Mvi, Adult No.4 with Vit 1009.5 K 10 ml Trace (Conc-1Ml/ Dose) 1 ml Potassium Chloride 20 meq In Amino Acid 5%-D20w+Lytes*E* 1, 000 ml @ 45 mls/hr IV . [id number] [facility] Rx#:[id number] Oral 360 360 Tube Feeding 652 43 Other 30 Output: Urine 795 985 185 Other: Voiding Method Indwelling Catheter Indwelling Catheter Indwelling Catheter - Exam GENERAL EXAM: Revealed 60-year-old female on AirVO high flow oxygen at 60 L and 80% FiO2 HEENT: Head is atraumatic, normocephalic, PERRLA, EOMI, nonicteric sclerae. Moist mucous membranes. No neck masses no JVD no stridor CHEST: No chest wall deformity. Symmetrical expansion. LUNGS: Minimal crackles bilaterally. CVS: Regular rate and rhythm, normal S1 and S2, no gallops, no murmurs, no rubs ABDOMEN: Soft, nontender. No hepatosplenomegaly, normal bowel sounds, no guarding or rigidity. EXTREMITIES: No clubbing, no edema, no cyanosis, 2+ pulses and upper and lower extremities. MUSCULOSKELETAL: Muscle strength and tone normal. SPINE: No scoliosis or deformity SKIN: No rashes CENTRAL NERVOUS SYSTEM: Alert and oriented -3. No focal deficits, tone is normal in all 4 extremities. PSYCHIATRIC: Alert and oriented -3. Appropriate affect. Intact judgment and insight. - Labs CBC & Chem 7: 12/02/20 03:54 12/02/20 11:56 Labs: Abnormal Lab Results - Last 24 Hours (Table) 12/01/20 12/01/20 12/02/20 Range/Units 17:34 23:47 03:54 WBC (3.8-10.6) k/uL RBC (3.80-5.40) m/uL Hgb (11.4-16.0) gm/dL Hct (34.0-46.0) % RDW (11.5-15.5) % Neutrophils # (1.3-7.7) k/uL Lymphocytes # (1.0-4.8) k/uL Sodium 136 L (137-145) mmol/L Carbon Dioxide 31 H (22-30) mmol/L BUN 29 H (7-17) mg/dL Glucose 167 H (74-99) mg/dL POC Glucose (mg/dL) 168 H 179 H (75-99) mg/dL ALT 48 H (4-34) U/L Alkaline Phosphatase 197 H (38-126) U/L Total Protein 5.1 L (6.3-8.2) g/dL Albumin 2.8 L (3.5-5.0) g/dL 12/02/20 12/02/20 Range/Units 03:54 11:19 WBC 11.8 H (3.8-10.6) k/uL RBC 3.58 L (3.80-5.40) m/uL Hgb 10.7 L (11.4-16.0) gm/dL Hct 32.1 L (34.0-46.0) % RDW 16.7 H (11.5-15.5) % Neutrophils # 10.7 H (1.3-7.7) k/uL Lymphocytes # 0.3 L (1.0-4.8) k/uL Sodium (137-145) mmol/L Carbon Dioxide (22-30) mmol/L BUN (7-17) mg/dL Glucose (74-99) mg/dL POC Glucose (mg/dL) 203 H (75-99) mg/dL ALT (4-34) U/L Alkaline Phosphatase (38-126) U/L Total Protein (6.3-8.2) g/dL Albumin (3.5-5.0) g/dL Assessment and Plan Assessment: Impression: Acute hypoxic respiratory failure secondary to covid 19 pneumonitis. Currently on AirVo high flow oxygen at 60 L/m and 80% FiO2 Remains on Decadron . Received remdesivir and actemra. Colchicine remains 0.6 mg twice a day. She is also on Lovenox. Remains on TPN for nutritional support. Yesterday she almost half of her meals. Chronic persistent bronchial asthma. Chronic gout. Peripheral neuropathy Peripheral vessel occlusive disease Chronic normocytic anemia Ex-smoker Hiatal hernia with reflux. Hypertension. Steroids induced hyperglycemia. Recommendation: Continue AirVo high flow oxygen at 60 L and 80% FiO2, to be titrated as tolerated. Chest x-ray is showing slight improvement. Decreased TPN and possibly discontinue as appetite improves Continue GI and DVT prophylaxis. Continue colchicine, 0.6 mg twice a day. Continue the Covid 19 cocktail. Prognosis remains guarded. We'll continue to follow.
[2020-12-02 17:16] LABS: Glucose,Whole Blood 128 mg/dL (75-99)
[2020-12-02] MEDS: ATORVASTATIN 40 MG TAB PO SCH (19:31)
[2020-12-02] MEDS: MONTELUKAST 10 MG TAB PO SCH (19:31)
[2020-12-02] MEDS: PRAMIPEXOLE 0.5 MG TAB PO SCH (19:31)
[2020-12-02] MEDS: MELATONIN 3 MG TABLET PO SCH (19:31)
[2020-12-02] MEDS: GABAPENTIN 300 MG CAP PO SCH (19:31)
[2020-12-02] MEDS: THEOPHYLLINE 24 HOUR 300 MG CAP.ER.24H PO SCH (19:31)
[2020-12-02 23:56] LABS: Glucose,Whole Blood 165 mg/dL (75-99)
[2020-12-03] MEDS: INSULIN ASPART (NovoLOG) 100 UNIT/ML VIAL SQ SCH ×5 (00:08→19:54)
[2020-12-03] MEDS: methylPREDNISolone SOD SUCCI 125 MG/2 ML VIAL IV SCH ×2 (00:09→06:04)
[2020-12-03 03:46] LABS: Anisocytosis Slight; Basophils % (A) 0 %; Eosinophils % (A) 0 %; HCT 32.9 % (34.0-46.0); HGB 10.4 gm/dL (11.4-16.0); Hypochromasia Slight; Lymphocytes # (A) 0.3 k/uL (1.0-4.8); Lymphocytes % (A) 4 %; MCH 28.4 pg (25.0-35.0); MCHC 31.6 g/dL (31.0-37.0); Mean Platelet Volume 8.5; Monocytes # (A) 0.5 k/uL (0-1.0); Monocytes % (A) 5 %; Neutrophils # (A) 8.8 k/uL (1.3-7.7); Neutrophils % (A) 91 %; Platelet Count 231 k/uL (150-450); RBC 3.65 m/uL (3.80-5.40); RDW 16.5 % (11.5-15.5); WBC 9.7 k/uL (3.8-10.6)
[2020-12-03 03:58] LABS: ALT 53 U/L (4-34); AST 32 U/L (14-36); African American GFR (CKD) >90 (>60 ml/min/1.73 sqM); Albumin 2.9 g/dL (3.5-5.0); Alkaline Phosphatase 156 U/L (38-126); Anion Gap 6 mmol/L; Blood Urea Nitrogen 28 mg/dL (7-17); C Reactive Protein <5.0 mg/L (<10.0); Calcium 9.1 mg/dL (8.4-10.2); Carbon Dioxide 32 mmol/L (22-30); Chloride 97 mmol/L (98-107); Glucose 126 mg/dL (74-99); LDH 1500 U/L (313-618); Magnesium 2.3 mg/dL (1.6-2.3); Non-African American GFR(CKD) >90 (>60 ml/min/1.73 sqM); Phosphorus 4.9 mg/dL (2.5-4.5); Potassium 3.9 mmol/L (3.5-5.1); Sodium 135 mmol/L (137-145); Total Bilirubin 0.6 mg/dL (0.2-1.3); Total Protein 5.4 g/dL (6.3-8.2)
[2020-12-03] MEDS: MVI, ADULT NO.4 WITH VIT K 10 ML, TRACE (CONC-1ML/DOSE) 1 ML, POTASSIUM CHLORIDE 20 MEQ... IV SCH ×4 (04:22)
[2020-12-03] MEDS ORDERED: POTASSIUM CHLORIDE ER 20 MEQ TAB.ER PO SCH (05:00)
[2020-12-03] MEDS: LEVOTHYROXINE 75 MCG TAB PO SCH (06:04)
[2020-12-03] MEDS: ALBUTEROL HFA INHALER INHALATION SCH ×4 (07:44→20:09)
[2020-12-03] MEDS: TIOTROPIUM 2.5 MCG INHALER INHALATION SCH (07:44)
[2020-12-03] MEDS: SYMBICORT 160-4.5 MCG INHALER INHALATION SCH ×2 (07:44→20:10)
--- NOTE | 2020-12-03 07:44 | XR ---
EXAMINATION TYPE: XR abdomen acute w cxr DATE OF EXAM: 12/03/2020 COMPARISON: NONE HISTORY: Covid pneumonia TECHNIQUE: Supine, upright, and frontal chest views of the chest and abdomen are obtained. FINDINGS: Findings in the chest show similar appearance, there is mixed interstitial and airspace di sease. No pneumothorax or evident effusion. Left-sided PICC line shows the distal tip over the cavoat rial junction level. There is no evidence for pneumoperitoneum. The bowel gas pattern is unremarkable as there is air throughout nondilated small and large bowel. No sizeable air fluid levels. No mass effects are seen. No unusual calcifications. Atherosclerotic vascular calcifications are present. Probable gluteal inj ection granuloma noted bilaterally. Degenerative disc changes in the visualized spine. There are over lying leads. IMPRESSION: Correlate for pneumonia.
[2020-12-03] MEDS: ENOXAPARIN 40 MG/0.4 ML SYRINGE SQ SCH ×2 (08:41→19:52)
[2020-12-03] MEDS: FUROSEMIDE 10 MG/ML 4 ML VIAL IV SCH (08:41)
[2020-12-03] MEDS: ASCORBIC ACID 500 MG TAB PO SCH (08:42)
[2020-12-03] MEDS: FAMOTIDINE 20 MG TAB PO SCH ×2 (08:42→19:51)
[2020-12-03] MEDS: allopurinoL 300 MG TAB PO SCH (08:42)
[2020-12-03] MEDS: SUCRALFATE 1 GM TAB PO SCH ×4 (08:42→19:52)
[2020-12-03] MEDS: ZINC SULFATE 220 MG CAP PO SCH (08:42)
[2020-12-03] MEDS: GABAPENTIN 100 MG CAP PO SCH ×2 (08:42→11:42)
[2020-12-03] MEDS: COLCHICINE 0.6 MG EACH PO SCH ×2 (08:42→19:51)
[2020-12-03 11:26] LABS: Glucose,Whole Blood 99 mg/dL (75-99)
[2020-12-03] MEDS: PIPERACILLIN-TAZOBACTAM 3.375 GM in SODIUM CHLORIDE 0.9% 100 ML IVPB SCH ×2 (11:43→17:28)
[2020-12-03] MEDS ORDERED: MVI, ADULT NO.4 WITH VIT K 10 ML, TRACE (CONC-1ML/DOSE) 1 ML, POTASSIUM CHLORIDE 40 MEQ... IV SCH ×7 (12:00)
--- NOTE | 2020-12-03 12:45 | P.PN ---
Subjective Progress Note Date: 12/03/20 Principal diagnosis: Acute hypoxic respiratory failure secondary to covid 19 pneumonitis 60-year-old here patient hospitalized for COVID 19 related pneumonia and hypoxemia. The patient was found to have a low oxygen saturation. She was diagnosed having COVID 19 on 11/20/2020. However, her symptoms started approximately a week prior to that as the patient started having generalized weakness, fever and chills. In the hospital at [place], she was found to be hypoxic and she was placed on 15 L of oxygen by nasal cannula. She was started on Decadron and following that she was transferred to [facility] on 11/20/2020 for further evaluation. On today's evaluation the patient remains on 15 L of oxygen by nasal cannula. Laboratory markers show a LDH of 1482, her CRP is 239, her pro-calcitonin level is at 1.28, her white cell count is at 4.5 and the patient has a lymphopenia with a lymphocyte count of 0.7. The electrolytes all within normal limits. Renal function is within normal limits. Glucose slightly elevated at 235. The chest x-ray is showing bilateral pulmonary infiltrates mainly involving the left lung and or significantly in the right upper lobe area. The patient is known to have COPD/asthma. The patient is also has history of hypothyroidism, hyperlipidemia and gout. She has history of hiatal hernia.. She is on Decadron 6 mg by mouth daily. She is on no DVT prophylaxis is receiving 40 mg of Lovenox her d-dimer level is at 0.36. On 11/25/2020, I'm seeing the patient for a follow-up. After doing some attempts to drop down the FiO2, overnight the patient became hypoxic again and she had to be placed back on an FiO2 of 100% with a BiPAP pressure of 14/6 cm of water. Her current respiratory rate is in the order of 22-30 breaths per minute. Minute ventilation is improved compared to yesterday while being on a BiPAP machine. The patient is comfortable. She is tolerating the treatment well. Her d-dimer is up to 30.01. Rest of the inflammatory markers show an LDH level of 1862 and the CRP is down to 40.8. Pro-calcitonin level was at 0.18. The chest x-ray from today still pending. Meanwhile, as far as treatment, the patient has received Lovenox at a dose of 40 mg subcu every 12 hours which is in the order of 0.5 mg per KG every 12 hours. In terms of treatment, the patient remains on Decadron 20 mg IV on the daily basis they #4 and she is on Remdesivir #5 and she also received 2 doses of Actemra 400 mg IV. Meanwhile be also inserted a PICC line in the left upper extremity and the patient was started on TPN for nutritional support. No altered mentation pH is resting comfortably in bed. Is slightly higher since the patient was started on TPN and septal 187 and the will going to put this patient on sliding scale blood sugar coverage. 11/26/2020, the patient remains in high spirits. Although BiPAP dependent, she seems to be awake and alert and breathing okay. She is still tachypneic with a respiratory rate in the high 20s low 30s. Minute ventilation ranging between 18-22 L on a BiPAP at a pressure of 14/6 cm of water. FiO2 was weaned down to 70% and the patient remains on high dose Decadron 20 mg IV. Inflammatory markers show a CRP level of 22 which is lower, LDH of 1776 which is lower, and her d-dimer is 23.4 which is also lower. She is awake and alert and following commands pH is receiving TPN for nutritional support. She is on insulin subcu every 4 hours per sliding scale for blood sugar control. No nausea. No vomiting. No diarrhea. No signs of any fluid overload. TPN is running at the rate of 45 mL an hour. IV fluids is running at the rate of 50 mL an hour. Meanwhile, as far as treatment, the patient has received Lovenox at a dose of 40 mg subcu every 12 hours which is in the order of 0.5 mg per KG every 12 hours. In terms of treatment, the patient remains on Decadron 20 mg IV on the daily basis they #5 and she is on Remdesivir #5 and she also received 2 doses of Actemra 400 mg IV. Reevaluated today on 11/27/2020, patient remains on BiPAP, she is on IPAP of 12 and EPAP of 6, FiO2 remains at 75%. Patient desaturates at night, seems to do well during the day. Patient is still on the Covid 19 cocktail. She remains on Decadron, she is on Lovenox, she received remdesivir, and she also received actemra. Patient is on colchicine, and I went ahead and double the dose to 0.6 mg twice a day. Her d-dimer remains elevated. But seems to be coming down low. Chest x-ray continues to show bilateral infiltrates. Patient remains marginal at best. CBC is relatively normal electroencephalogram normal renal profile is normal. LDH is 1784, C-reactive protein is 9.7. Reevaluated today on 11/28/2020, patient remains in the ICU, remains on BiPAP, her IPAP was increased to 14, EPAP remains at 6. Remains at 75% FiO2, O2 saturation is in the low 90s. Patient is receiving TPN, she is also on the Covid 19 cocktail. Today her d-dimer is noted to be high LDH is high, patient looks tired, frail and chronically ill. Her pulmonary status is basically about the same, chest x-ray is basically unchanged continues to show bilateral interstitial infiltrates. Possibility of underlying CHF is not entirely ruled out, felt to be less likely, however will give the patient a dose of Lasix 40 mg IV push 1 today. And I will cut down her IV fluid to KVO. D-dimer is 24.16. WBC count is 13, electrolytes and renal profile are normal. Reevaluated today on 11/29/2020, patient remains in the ICU, remains on BiPAP with IPAP of 14 and EPAP of 6, FiO2 is 75%, O2 saturation is running in the low 90s. Patient is on the Covid 19 cocktail, diuresed significantly with one dose of Lasix yesterday, and I will give her another dose today. Remains on TPN via PICC line. Remains on colchicine. And overall she is about the same. Chest x- ray is also about the same. CBC today is relatively normal left lites are normal, inflammatory markers were not done today. D-dimer is 31.3 Reevaluated today on 11/30/2020, remains in the ICU, she is basically about the same however her FiO2 requirement went up, she is now on 90% and set of 75% FiO2, BiPAP remains at 14/6. Patient remains on TPN, chest x-ray is showing interstitial infiltrates/edema, hence I recommended more Lasix to be given on a regular basis twice a day. Patient remains on TPN, remains on colchicine, CBC is relatively normal, d-dimer is 21.38. Electrolytesenc normal renal profile is normal. Her LDH is 4, and her C-reactive protein is less than 5. Her LDH is basically about the same over the last few days Reevaluated today on 12/01/2020, remains in the ICU, remains on BiPAP, however the FiO2 is down to 65%, IPAP is 14, EPAP is 6, patient is holding her saturations in the low 90, roughly 93%. Yesterday she tolerated 45 minutes of non-rebreather mask and high flow nasal cannula. Her IV fluids remains at KVO, remains on Lasix, patient is in negative balance, she is still on TPN, overall the patient has made significant improvement over the last 24 hours, and she is feeling better compared to how she felt initially. Less shortness of breath, seems to be more comfortable with her BiPAP. Remains on Lasix 40 mg IV push every 12 hours WBC count today is 8.8 hemoglobin is 10.5, and left lites are normal potassium is a bit low being corrected as per protocol. No inflammatory markers were ordered to be done today. Chest x-ray minimal slight improvement The patient is seen today 12/02/2020 in follow-up in the intensive care unit. She is currently sitting up in a chair at the bedside. Awake and alert in no acute distress. She has been converted from the BiPAP to AirVO high flow oxygen at 60 L and 80% FiO2. Yesterday she was able to be off the BiPAP for 2-3 hours during mealtime and tolerated this well. Her appetite has picked up and she is eating at least half of her meals. She remains on TPN as well. Chest x-ray is showing some improvement. She is feeling stronger today. White count 11.8. Hemoglobin 10.7. Sodium 136. Potassium 3.5. Creatinine 0.64. Reevaluated 12/03/2020, patient remains in the ICU, presently on airvo, FiO2 is 70%, and she is on 60 L high flow. Patient has been off BiPAP for few days, and she seems to be doing much better. Chest x-ray continues to show evidence of bilateral infiltrates, clinically however the patient is doing much better. She had eaten for breakfast today, and she is now off TPN. Considering the chest x- ray findings and considering the patient is still requiring significant amount of oxygen, I recommended adding Zosyn empirically especially since the patient did receive actemra, and I have also recommended cutting down the Solu-Medrol to 40 mg IV push every 8 hours, and now that she is off TPN I cut down the Lasix to 40 mg daily instead of 40 twice a day. Objective - Vital Signs Vital signs: Vital Signs Temp 96.7 F L 12/03/20 08:00 Pulse 72 12/03/20 08:00 Resp 22 12/03/20 08:00 BP 104/61 12/03/20 09:00 Pulse Ox 75 L 12/03/20 09:00 Intake & Output 12/02/20 12/03/20 12/03/20 18:59 06:59 18:59 Intake Total 1545 330 450 Output Total 1010 1275 250 Balance 535 -945 200 Intake: IV 465 330 90 KVO 130 110 30 Mvi, Adult No.4 with Vit 335 220 60 K 10 ml Trace (Conc-1Ml/ Dose) 1 ml Potassium Chloride 20 meq In Amino Acid 5%-D20w+Lytes*E* 1, 000 ml @ 45 mls/hr IV . [id number] [facility] Rx#:[id number] Oral 1080 360 Output: Urine 1010 1275 250 Other: Voiding Method Indwelling Catheter Indwelling Catheter - Exam GENERAL EXAM: Revealed 60-year-old female on AirVO high flow oxygen at 60 L and 70% FiO2 HEENT: Head is atraumatic, normocephalic, PERRLA, EOMI, nonicteric sclerae. Moist mucous membranes. No neck masses no JVD no stridor CHEST: No chest wall deformity. Symmetrical expansion. LUNGS: Minimal crackles bilaterally. CVS: Regular rate and rhythm, normal S1 and S2, no gallops, no murmurs, no rubs ABDOMEN: Soft, nontender. No hepatosplenomegaly, normal bowel sounds, no g uarding or rigidity. EXTREMITIES: No clubbing, no edema, no cyanosis, 2+ pulses and upper and lower extremities. MUSCULOSKELETAL: Muscle strength and tone normal. SPINE: No scoliosis or deformity SKIN: No rashes CENTRAL NERVOUS SYSTEM: Alert and oriented -3. No focal deficits, tone is normal in all 4 extremities. PSYCHIATRIC: Alert and oriented -3. Appropriate affect. Intact judgment and insight. - Labs CBC & Chem 7: 12/03/20 03:16 12/03/20 03:16 Labs: Abnormal Lab Results - Last 24 Hours (Table) 12/02/20 12/02/20 12/03/20 Range/Units 17:14 23:53 03:16 RBC (3.80-5.40) m/uL Hgb (11.4-16.0) gm/dL Hct (34.0-46.0) % RDW (11.5-15.5) % Neutrophils # (1.3-7.7) k/uL Lymphocytes # (1.0-4.8) k/uL Sodium 135 L (137-145) mmol/L Chloride 97 L (98-107) mmol/L Carbon Dioxide 32 H (22-30) mmol/L BUN 28 H (7-17) mg/dL Glucose 126 H (74-99) mg/dL POC Glucose (mg/dL) 128 H 165 H (75-99) mg/dL Phosphorus 4.9 H (2.5-4.5) mg/dL ALT 53 H (4-34) U/L Alkaline Phosphatase 156 H (38-126) U/L Lactate Dehydrogenase 1500 H (313-618) U/L Total Protein 5.4 L (6.3-8.2) g/dL Albumin 2.9 L (3.5-5.0) g/dL 12/03/20 Range/Units 03:16 RBC 3.65 L (3.80-5.40) m/uL Hgb 10.4 L (11.4-16.0) gm/dL Hct 32.9 L (34.0-46.0) % RDW 16.5 H (11.5-15.5) % Neutrophils # 8.8 H (1.3-7.7) k/uL Lymphocytes # 0.3 L (1.0-4.8) k/uL Sodium (137-145) mmol/L Chloride (98-107) mmol/L Carbon Dioxide (22-30) mmol/L BUN (7-17) mg/dL Glucose (74-99) mg/dL POC Glucose (mg/dL) (75-99) mg/dL Phosphorus (2.5-4.5) mg/dL ALT (4-34) U/L Alkaline Phosphatase (38-126) U/L Lactate Dehydrogenase (313-618) U/L Total Protein (6.3-8.2) g/dL Albumin (3.5-5.0) g/dL Assessment and Plan Assessment: Impression: Acute hypoxic respiratory failure secondary to covid 19 pneumonitis. Currently on AirVo high flow oxygen at 60 L/m and 70% FiO2 change Decadron to Solu- Medrol. . Received remdesivir and actemra. Colchicine remains 0.6 mg twice a day. She is also on Lovenox. Off TPN today since the patient is eating a full meal. Chronic persistent bronchial asthma. Chronic gout. Peripheral neuropathy Peripheral vessel occlusive disease Chronic normocytic anemia Ex-smoker Hiatal hernia with reflux. Hypertension. Steroids induced hyperglycemia. Recommendation: Continue AirVo high , and titrate accordingly. Discontinue TPN and continue nutritional support orally. Continue GI and DVT prophylaxis. Continue colchicine, 0.6 mg twice a day. Continue the Covid 19 cocktail. Start Zosyn empirically. Placed on Solu-Medrol at 40 mg IV push every 8 hours. Cut down Lasix to 40 mg IV push daily. We'll continue to monitor in the ICU for the next 24 hours We'll continue to follow. Time with Patient: Less than 30
--- NOTE | 2020-12-03 14:21 | P.PN ---
Subjective COVID 19 related pneumonia and hypoxemia Acute hypoxic respiratory failure 60-year-old female came in with compensative shortness of breath found to have very low oxygen saturations patient was diagnosed with Covid 19 about 3 days ago patient had having symptoms for about a week. Patient was also company of fever chills patient has low-grade fever here. Patient was seen in [facility] subsequently transferred here patient is presently on 15 L of oxygen. Patient does have history of COPD. Patient was started on Decadron. Pulmonary was consulted. She was complaining of for cough without any significant sputum production. 11/24/2020, patient is seen for a follow-up. The patient is currently still on a BiPAP with an FiO2 of 100%; feeling slightly better; remains afebrile. The chest x-ray remains unchanged and the patient continues to have diffuse but the pulmonary infiltrates consistent with code 19 related pneumonia. Her inflammatory markers are quite abnormal. At LDH from today was 1006 and 41, and her CRP was 59. Note that the CRP level was slightly lower. The pro-calcitonin level from yesterday was 0.18. CPKs nonelevated and a triglyceride level is at 154. The patient has a d-dimer of 14.8. She remains on Lovenox at a dose of 40 mg subcu every 12 hours which is in the order of 0.5 mg per KG every 12 hours. In terms of treatment, the patient remains on Decadron 20 mg IV on the daily basis and she is on Remdesivir and she also received 2 doses of Actemra 400 mg IV. Her oral intake was noted to be quite low as the patient is unable to get herself off the BiPAP for oral intake. Based on that, the patient will be given a PICC line today and she'll be started on TPN for nutritional support to maintain her nutritional status. No fever. No chills. Hemodynamically stable. No other issues for now. Her CODE STATUS is full code. 11/25/2020 patient is seen and evaluated in room for a follow-up; patient became hypoxic ag ain and she had to be placed back on an FiO2 of 100% with a BiPAP pressure of 14/6 cm of water. Her current respiratory rate is in the order of 22-30 breaths per minute. The patient is comfortable. She is tolerating the treatment well. Laboratory review shows d-dimer is up to 30.01. Rest of the inflammatory markers show an LDH level of 1862 and the CRP is down to 40.8. Pro-calcitonin level was at 0.18. patient has received Lovenox at a dose of 40 mg subcu every 12 hours which is in the order of 0.5 mg per KG every 12 hours. In terms of treatment, the patient remains on Decadron 20 mg IV on the daily basis they #4 and she is on Remdesivir #5 and she also received 2 doses of Actemra 400 mg IV. Meanwhile be also inserted a PICC line in the left upper extremity and the patient was started on TPN for nutritional support. No altered mentation pH is resting comfortably in bed. Is slightly higher since the patient was started on TPN and septal 187 and the will going to put this patient on sliding scale blood sugar coverage. 11/26/2020 Patient remains in ICU and remains awake and alert; currently on BiPAP; FiO2 was weaned down to 70% with stable O2 saturation; patient remains on high-dose Decadron in form of 20 mg IV daily; inflammatory markers slowly trending down including CRP of 22, LDH of 1776, d-dimer 23.4 Patient is currently on TPN for nutrition at a rate of 45 hoursalong with blood glucose monitoring every 4 hours with insulin sliding scale; remains stable on IV fluids at 50 mL per hour Patient is being followed by pulmonology service and recommended to continue with Lovenox 40 mg subcu every 12 hours, Decadron 20 mg IV daily along with completing REM treatment; patient has received 2 doses of Actemra 400 mg IV. 11/27/2020 Patient remains on BiPAP with FiO2 of around 670%. Patient has some improvement in inflammatory markers. 11/28/2019 Patient remains on BiPAP with FiO2 of around 75%. 11/29/2019 No significant improvement in her respiratory status patient remains on the same Covid 19 cocktail as as today. Inflammatory markers have come down and stabilized. 11/30/2019 Patient remains on BiPAPand change in his in her respiratory status or BiPAP settings. Patient is being dialyzed at this time as there is a concern of possible CHF as well patient remains on TPN and colchicine 12/01/2019 Patient is off BiPAP and is on airvo, patient remains on Lasix with significant improvement in her respiratory status. Chest x-ray is also showing some improvement. Patient remains on TPN which is being tapered down patient was started on a by mouth diet patient is presently on and wasn't FiO2 and 65 L of oxygen 12/02/2019 Patient was pretty status remains the same patient is able to eat today we will be enough TPN today. 12/03/2019 Patient is a off TPN tolerating oral diet very well. Review of systems: Unable to obtain All inpatient medications were reviewed and appropriate changes in these medications as dictated in the interval history and assessment and plan. Objective - Vital Signs Vital signs: Vital Signs Temp 99.6 F 12/03/20 12:00 Pulse 83 12/03/20 13:00 Resp 29 H 12/03/20 13:00 BP 98/64 12/03/20 13:00 Pulse Ox 88 L 12/03/20 13:00 Intake & Output 12/02/20 12/03/20 12/03/20 18:59 06:59 18:59 Intake Total 1545 330 830 Output Total 1010 1275 700 Balance 535 -945 130 Intake: IV 465 330 230 KVO 130 110 70 Mvi, Adult No.4 with Vit 335 220 60 K 10 ml Trace (Conc-1Ml/ Dose) 1 ml Potassium Chloride 20 meq In Amino Acid 5%-D20w+Lytes*E* 1, 000 ml @ 45 mls/hr IV . [id number] [facility] Rx#:[id number] Piperacillin-Tazobactam 3 100 .375 gm In Sodium Chloride 0.9% 100 ml @ 25 mls/hr IVPB Q8HR [facility] Rx# :[id number] Oral 1080 600 Output: Urine 1010 1275 700 Other: Voiding Method Indwelling Catheter Indwelling Catheter Indwelling Catheter - Exam PHYSICAL EXAMINATION: GENERAL: The patient is alert and oriented x3, not in any acute distress. Well developed, well nourished. HEENT: Pupils are round and equally reacting to light. EOMI. No scleral icterus. No conjunctival pallor. Normocephalic, atraumatic. No pharyngeal erythema. No thyromegaly. CARDIOVASCULAR: S1 and S2 present. No murmurs, rubs, or gallops. PULMONARY: There is some rhonchi and wheezing bilaterally ABDOMEN: Soft, nontender, nondistended, normoactive bowel sounds. No palpable organomegaly. MUSCULOSKELETAL: No joint swelling or deformity. EXTREMITIES: No cyanosis, clubbing, patient does have some pedal edema NEUROLOGICAL: Gross neurological examination did not reveal any focal deficits. SKIN: No rashes. Note: Because of COVID 19 isolation, some of the history and physical exam findings are indirect and obtained from nursing staff, and other physician examinations to avoid unnecessary contact with the patient. - Labs CBC & Chem 7: 12/03/20 03:16 12/03/20 03:16 Labs: Abnormal Lab Results - Last 24 Hours (Table) 12/02/20 12/02/20 12/03/20 Range/Units 17:14 23:53 03:16 RBC (3.80-5.40) m/uL Hgb (11.4-16.0) gm/dL Hct (34.0-46.0) % RDW (11.5-15.5) % Neutrophils # (1.3-7.7) k/uL Lymphocytes # (1.0-4.8) k/uL Sodium 135 L (137-145) mmol/L Chloride 97 L (98-107) mmol/L Carbon Dioxide 32 H (22-30) mmol/L BUN 28 H (7-17) mg/dL Glucose 126 H (74-99) mg/dL POC Glucose (mg/dL) 128 H 165 H (75-99) mg/dL Phosphorus 4.9 H (2.5-4.5) mg/dL ALT 53 H (4-34) U/L Alkaline Phosphatase 156 H (38-126) U/L Lactate Dehydrogenase 1500 H (313-618) U/L Total Protein 5.4 L (6.3-8.2) g/dL Albumin 2.9 L (3.5-5.0) g/dL 12/03/20 Range/Units 03:16 RBC 3.65 L (3.80-5.40) m/uL Hgb 10.4 L (11.4-16.0) gm/dL Hct 32.9 L (34.0-46.0) % RDW 16.5 H (11.5-15.5) % Neutrophils # 8.8 H (1.3-7.7) k/uL Lymphocytes # 0.3 L (1.0-4.8) k/uL Sodium (137-145) mmol/L Chloride (98-107) mmol/L Carbon Dioxide (22-30) mmol/L BUN (7-17) mg/dL Glucose (74-99) mg/dL POC Glucose (mg/dL) (75-99) mg/dL Phosphorus (2.5-4.5) mg/dL ALT (4-34) U/L Alkaline Phosphatase (38-126) U/L Lactate Dehydrogenase (313-618) U/L Total Protein (6.3-8.2) g/dL Albumin (3.5-5.0) g/dL Assessment and Plan Plan: -Acute hypoxic respiratory failure: Patient is on high flow oxygen with airvo Winter off the BiPAP.. Secondary to Covid 19 pneumonia patient is on Decadron , on the GI prophylaxis as well as Lovenox for DVT prophylaxis. Completed remdesivir and actemra. Was started on colchicine as an anti-inflammatory and patient is on TPN for nutrition which is being tapered down and patient was started on by mouth diet -COPD with mild acute exacerbation secondary to Covid 19. Pulmonology following the patient -Elevated blood sugars secondary to Decadron patient is an before meals &at bedtime sliding scale insulin -Hyperlipidemia -Hypothyroidism -History of gout for which she'll patient is on colchicine which will be continued -Peripheral edema improved now -Peripheral vascular disease -Hiatal hernia with gastroesophageal reflux disease patient is on Prilosec CODE STATUS; full code
[2020-12-03 17:12] LABS: Glucose,Whole Blood 167 mg/dL (75-99)
[2020-12-03] MEDS: methylPREDNISolone SOD SUCCI 40 MG/ML 1 ML VIAL IV SCH (17:25)
[2020-12-03 19:28] LABS: Glucose,Whole Blood 91 mg/dL (75-99)
[2020-12-03] MEDS: THEOPHYLLINE 24 HOUR 300 MG CAP.ER.24H PO SCH (19:51)
[2020-12-03] MEDS: MELATONIN 3 MG TABLET PO SCH (19:51)
[2020-12-03] MEDS: GABAPENTIN 300 MG CAP PO SCH (19:51)
[2020-12-03] MEDS: MONTELUKAST 10 MG TAB PO SCH (19:51)
[2020-12-03] MEDS: PRAMIPEXOLE 0.5 MG TAB PO SCH (19:51)
[2020-12-03] MEDS: ATORVASTATIN 40 MG TAB PO SCH (19:52)
[2020-12-03 23:51] LABS: Glucose,Whole Blood 125 mg/dL (75-99)
[2020-12-04] MEDS: methylPREDNISolone SOD SUCCI 40 MG/ML 1 ML VIAL IV SCH ×3 (00:15→16:00)
[2020-12-04] MEDS: PIPERACILLIN-TAZOBACTAM 3.375 GM in SODIUM CHLORIDE 0.9% 100 ML IVPB SCH ×3 (00:15→16:00)
[2020-12-04 04:01] LABS: Anisocytosis Slight; Basophils % (A) 0 %; Eosinophils % (A) 0 %; HCT 33.2 % (34.0-46.0); HGB 10.8 gm/dL (11.4-16.0); Hypochromasia Slight; Lymphocytes # (A) 0.3 k/uL (1.0-4.8); Lymphocytes % (A) 4 %; MCH 29.1 pg (25.0-35.0); MCHC 32.4 g/dL (31.0-37.0); MCV 89.7 fL (80.0-100.0); Mean Platelet Volume 7.9; Monocytes # (A) 0.5 k/uL (0-1.0); Monocytes % (A) 6 %; Neutrophils # (A) 8.1 k/uL (1.3-7.7); Neutrophils % (A) 90 %; Platelet Count 224 k/uL (150-450); RDW 16.5 % (11.5-15.5); WBC 9.1 k/uL (3.8-10.6)
[2020-12-04 04:25] LABS: African American GFR (CKD) >90 (>60 ml/min/1.73 sqM); Anion Gap 4 mmol/L; Blood Urea Nitrogen 28 mg/dL (7-17); Calcium 9.1 mg/dL (8.4-10.2); Carbon Dioxide 34 mmol/L (22-30); Chloride 96 mmol/L (98-107); Glucose 118 mg/dL (74-99); Magnesium 2.4 mg/dL (1.6-2.3); Non-African American GFR(CKD) >90 (>60 ml/min/1.73 sqM); Phosphorus 4.6 mg/dL (2.5-4.5); Potassium 4.4 mmol/L (3.5-5.1); Sodium 134 mmol/L (137-145)
[2020-12-04] MEDS: INSULIN ASPART (NovoLOG) 100 UNIT/ML VIAL SQ SCH ×4 (06:22→20:47)
[2020-12-04 06:23] LABS: Glucose,Whole Blood 120 mg/dL (75-99)
[2020-12-04] MEDS: LEVOTHYROXINE 75 MCG TAB PO SCH (06:27)
--- NOTE | 2020-12-04 07:58 | XR ---
EXAMINATION TYPE: XR chest 1V portable DATE OF EXAM: 12/04/2020 HISTORY: Shortness of breath. COMPARISON: 12/02/2020 TECHNIQUE: Single view of the chest is submitted. FINDINGS: Demonstrated are scattered senescent parenchymal change. Coarse infiltrates are seen bilaterally with slight interval progression noted. The heart is stable. Hilar and mediastinal structures are within normal limits. Degenerative changes are seen of the dorsal spine. IMPRESSION: 1. Coarse infiltrates are seen bilaterally with slight interval progression noted.
[2020-12-04] MEDS: ALBUTEROL HFA INHALER INHALATION SCH ×4 (08:01→19:32)
[2020-12-04] MEDS: SYMBICORT 160-4.5 MCG INHALER INHALATION SCH ×2 (08:02→19:33)
[2020-12-04] MEDS: TIOTROPIUM 2.5 MCG INHALER INHALATION SCH (08:02)
[2020-12-04] MEDS: ASCORBIC ACID 500 MG TAB PO SCH (08:45)
[2020-12-04] MEDS: COLCHICINE 0.6 MG EACH PO SCH ×2 (08:45→21:02)
[2020-12-04] MEDS: SUCRALFATE 1 GM TAB PO SCH ×4 (08:45→21:01)
[2020-12-04] MEDS: ENOXAPARIN 40 MG/0.4 ML SYRINGE SQ SCH ×2 (08:45→21:01)
[2020-12-04] MEDS: ZINC SULFATE 220 MG CAP PO SCH (08:45)
[2020-12-04] MEDS: FUROSEMIDE 10 MG/ML 4 ML VIAL IV SCH (08:45)
[2020-12-04] MEDS: GABAPENTIN 100 MG CAP PO SCH ×2 (08:45→13:06)
[2020-12-04] MEDS: FAMOTIDINE 20 MG TAB PO SCH ×2 (08:45→21:01)
[2020-12-04] MEDS: allopurinoL 300 MG TAB PO SCH (08:46)
[2020-12-04 10:03] LABS: C Reactive Protein <5.0 mg/L (<10.0); LDH 1660 U/L (313-618)
--- NOTE | 2020-12-04 10:32 | P.PN ---
Subjective Progress Note Date: 12/04/20 Principal diagnosis: 60-year-old here patient hospitalized for COVID 19 related pneumonia and hypoxemia. The patient was found to have a low oxygen saturation. She was diagnosed having COVID 19 on 11/20/2020. However, her symptoms started approximately a week prior to that as the patient started having generalized weakness, fever and chills. In the hospital at [place], she was found to be hypoxic and she was placed on 15 L of oxygen by nasal cannula. She was started on Decadron and following that she was transferred to [facility] on 11/20/2020 for further evaluation. On today's evaluation the patient remains on 15 L of oxygen by nasal cannula. Laboratory markers show a LDH of 1482, her CRP is 239, her pro-calcitonin level is at 1.28, her white cell count is at 4.5 and the patient has a lymphopenia with a lymphocyte count of 0.7. The electrolytes all within normal limits. Renal function is within normal limits. Glucose slightly elevated at 235. The chest x-ray is showing bilateral pulmonary infiltrates mainly involving the left lung and or significantly in the right upper lobe area. The patient is known to have COPD/asthma. The patient is also has history of hypothyroidism, hyperlipidemia and gout. She has history of hiatal hernia.. She is on Decadron 6 mg by mouth daily. She is on no DVT prophylaxis is receiving 40 mg of Lovenox her d-dimer level is at 0.36. On 11/22/2020 patient seen in follow-up in intensive care unit. She is awake and alert, oriented 3, she is currently on BiPAP support with pressures of 14/5 and FiO2 of 100%, and her SpO2 is a 99%. Patient states she doesn't feel significantly more short of breath, however she tachypneic with a respiratory rate of 28 BPM, she has been febrile T-max of 10 1F, her pro-calcitonin came back elevated at 1.28 suggesting possibility of bacterial infection. Today we started her on Remdesivir, today's date to off treatment, her inflammatory markers are trending up, LDH is up to 1940, CRP is 143.6, d-dimer is 0.78, and is on prophylactic dose of Lovenox 40 mg daily, electrolytes and renal profile are unremarkable. O'Christiano is 9.2, hemoglobin is 11, platelet count is 322, neutrophils is 8.3, and in lymphocyte count is 0.5. Patient is on day 2 of high-dose IV steroids 20 mg daily. Patient is awake and alert, oriented 3, yesterday she reversed her CODE STATUS, from DO NOT RESUSCITATE to full code. On 11/23/2020 patient seen in follow-up in the intensive care unit, she remains on BiPAP support, has been very much dependent on it, and he desaturates rapidly even for short periods when the BiPAP mask is removed to give the patient oral medications, current BiPAP settings of 14/60 and FiO2 of 100%, her pulse ox is 93%. Awake and alert, she is oriented 3, she states her breathing is stable as long as she does not move and lays very still in bed. She is complaining of a dry cough, no chest discomfort, no palpitations. She is in sinus mechanism, bradycardic with a rate of 55 BPM, blood pressure is 116/66, not on any vasopressor support, her current IV fluids are 0.9 normal saline at a rate of 20 ML per hour. Patient's pattern has improved, T-max in last 24 hours 99.5F. Urinalysis was sent and shows no signs of infection, blood cultures will be sent today, last pro calcitonin yesterday was 1.29, repeat pro calcitonin has been sent and pending at this time, patient was empirically placed on azithromycin and Rocephin. Maintenance on high-dose IV steroids currently with Decadron 20 mg IV on the daily basis. Absent been reviewed, her d-dimer has trended up, and is at 5.13 today, her Lovenox dose will be adjusted 0.5 mg/kg of body weight twice daily, LDH is down slightly, 1670, CRP is relatively stable at 140.5. Electronic are within normal limits, patient is mildly prerenal, BUN is 30 creatinine 0.74, she also remains on oral dose of Lasix and she has had very limited oral intake. She has only been able to take one or 2 sips of oral liquids and she states things do not taste right. White blood cell count is 6.5, hemoglobin is 10.5. His chest x-ray has been reviewed and diffuse increasing groundglass opacities. I discussed the patient's CODE STATUS with her, and she is agreeable to CPR, intubation, defibrillation, CODE STATUS will be changed to full code On 12/04/2020 patient seen in follow-up in the intensive care unit, she is off the BiPAP support, and currently on high flow oxygen per Airvo 60 L/m and FiO2 of 70%, with a pulse ox between 92-94%, she is breathing comfortably, denies any chest discomfort, she sitting up in a chair, she looks comfortable, she has had no fever or chills. Today's chest x-ray shows coarse infiltrates bilaterally with slight interval progression. Patient is tolerating oral diet. She is off the TPN. She is on 0.9 normal saline at a rate of 10 ML per hour, today's labs have been reviewed, d-dimer is improved from a few days back and is down to 6.70, patient is on Lovenox 40 mg twice a day, white blood cell count is 9.1, hemoglobin is 10.8, sodium is 134, potassium is 4.4, chloride is 96, CO2 is 34, B1 is 20, creatinine 0.64 LDH is 1660, CRP is less than 5. Patient remains on daily dose of IV Lasix, colchicine, Pepcid 20 mg twice a day, bronchodilators, IV Solu-Medrol 40 mg every 8 hours Objective - Vital Signs Vital signs: Vital Signs Temp 98 F 12/04/20 04:00 Pulse 64 12/04/20 10:00 Resp 22 12/04/20 10:00 BP 105/67 12/04/20 10:00 Pulse Ox 94 L 12/04/20 10:00 Intake & Output 12/03/20 12/04/20 12/04/20 18:59 06:59 18:59 Intake Total 1460 230 110 Output Total 1125 880 175 Balance 335 -650 -65 Weight 81.873 kg 81.873 kg Intake: IV 380 230 110 KVO 120 130 10 Mvi, Adult No.4 with Vit 60 K 10 ml Trace (Conc-1Ml/ Dose) 1 ml Potassium Chloride 20 meq In Amino Acid 5%-D20w+Lytes*E* 1, 000 ml @ 45 mls/hr IV . [id number] [facility] Rx#:[id number] Piperacillin-Tazobactam 3 200 100 100 .375 gm In Sodium Chloride 0.9% 100 ml @ 25 mls/hr IVPB Q8HR [facility] Rx# :[id number] Oral 1080 Output: Urine 1125 880 175 Other: Voiding Method Indwelling Catheter Indwelling Catheter Indwelling Catheter - Exam GENERAL EXAM: Alert, pleasant, 60-year-old white female on Airvo at 60 L/m, and FiO2 of 70% satting 94% comfortable in no apparent distress. HEAD: Normocephalic/atraumatic. EYES: Normal reaction of pupils, equal size. Conjunctiva pink, sclera white. NOSE: Clear with pink turbinates. THROAT: No erythema or exudates. NECK: No masses, no JVD, no thyroid enlargement, no adenopathy. CHEST: No chest wall deformity. Symmetrical expansion. LUNGS: Equal air entry with diffuse crackles CVS: Regular rate and rhythm, normal S1 and S2, no gallops, no murmurs, no rubs ABDOMEN: Soft, nontender. No hepatosplenomegaly, normal bowel sounds, no guarding or rigidity. EXTREMITIES: No clubbing, no edema, no cyanosis, 2+ pulses and upper and lower extremities. MUSCULOSKELETAL: Muscle strength and tone normal. SPINE: No scoliosis or deformity SKIN: No rashes CENTRAL NERVOUS SYSTEM: Alert and oriented -3. No focal deficits, tone is normal in all 4 extremities. PSYCHIATRIC: Alert and oriented -3. Appropriate affect. Intact judgment and insight. - Labs CBC & Chem 7: 12/04/20 03:19 12/04/20 03:19 Labs: Abnormal Lab Results - Last 24 Hours (Table) 12/03/20 12/03/20 12/04/20 Range/Units 17:11 23:49 03:19 RBC (3.80-5.40) m/uL Hgb (11.4-16.0) gm/dL Hct (34.0-46.0) % RDW (11.5-15.5) % Neutrophils # (1.3-7.7) k/uL Lymphocytes # (1.0-4.8) k/uL D-Dimer (<0.60) mg/L FEU Sodium 134 L (137-145) mmol/L Chloride 96 L (98-107) mmol/L Carbon Dioxide 34 H (22-30) mmol/L BUN 28 H (7-17) mg/dL Glucose 118 H (74-99) mg/dL POC Glucose (mg/dL) 167 H 125 H (75-99) mg/dL Phosphorus 4.6 H (2.5-4.5) mg/dL Magnesium 2.4 H (1.6-2.3) mg/dL Lactate Dehydrogenase (313-618) U/L 12/04/20 12/04/20 12/04/20 Range/Units 03:19 06:21 09:19 RBC 3.70 L (3.80-5.40) m/uL Hgb 10.8 L (11.4-16.0) gm/dL Hct 33.2 L (34.0-46.0) % RDW 16.5 H (11.5-15.5) % Neutrophils # 8.1 H (1.3-7.7) k/uL Lymphocytes # 0.3 L (1.0-4.8) k/uL D-Dimer 6.70 H (<0.60) mg/L FEU Sodium (137-145) mmol/L Chloride (98-107) mmol/L Carbon Dioxide (22-30) mmol/L BUN (7-17) mg/dL Glucose (74-99) mg/dL POC Glucose (mg/dL) 120 H (75-99) mg/dL Phosphorus (2.5-4.5) mg/dL Magnesium (1.6-2.3) mg/dL Lactate Dehydrogenase (313-618) U/L 12/04/20 Range/Units 09:19 RBC (3.80-5.40) m/uL Hgb (11.4-16.0) gm/dL Hct (34.0-46.0) % RDW (11.5-15.5) % Neutrophils # (1.3-7.7) k/uL Lymphocytes # (1.0-4.8) k/uL D-Dimer (<0.60) mg/L FEU Sodium (137-145) mmol/L Chloride (98-107) mmol/L Carbon Dioxide (22-30) mmol/L BUN (7-17) mg/dL Glucose (74-99) mg/dL POC Glucose (mg/dL) (75-99) mg/dL Phosphorus (2.5-4.5) mg/dL Magnesium (1.6-2.3) mg/dL Lactate Dehydrogenase 1660 H (313-618) U/L Assessment and Plan Plan: Assessment: #1. acute Covid 19 related pneumonia with bilateral pulmonary infiltrates most significant in the right upper lobe and the left lung seems to be diffusely infiltrated #2. acute severe hypoxic respiratory failure, worsening over last 24 hours, patient on FiO2 100%, and BiPAP support, the evidence of worsening inflammatory markers and worsening oxygenation. Started on Remdesivir treatment on 11/21/2020, and high-dose IV Decadron on 11/21/2020. Patient had rapid worsening of oxygenation and was transferred to the intensive care unit on 11/21/2020. Currently requiring BiPAP support with pressures of 14/5 and FiO2 100% On 11/23/2020 is on BiPAP support with FiO2 of 100%, and very much dependent on BiPAP support. On 12/04/2020 patient is on Arava at 60 L in and FiO2 of 70% with pulse ox of 94% #3. Increased pro-calcitonin rule out possibility of bacterial infection, we'll cover the patient with azithromycin and Rocephin, we'll send urinalysis with cultures, we'll send a Legionella urine antigen and mycoplasma IgM and IgG #4. chronic persistent bronchial asthma with an FEV1 of 82-87% on outpatient ba sis maintained on Symbicort #5. steroid-induced hyperglycemia #6. hypertension #7. hypothyroidism #8. Osteoarthritis and gout #9. Peripheral neuropathy involving lower extremities #10. Peripheral vascular disease #11. Chronic normocytic anemia #12. More than [id number] smoking history patient is currently an ex-smoker hiatal hernia with reflux Plan: Continue current medical treatment, continue same dose IV steroids, same dose IV Lasix, Lovenox, d-dimer is improving, inflammatory markers have improved since admission. Vital signs are stable, patient is tolerating Airvo, she is off the BiPAP support, she is off the TPN, she is tolerating oral intake, she is breathing comfortably, appears to be a bit stronger. No fever or chills. We'll continue to closely follow the patient in the intensive care unit, provide incentive spirometer encourage deep breathing and coughing. Tinea same dose anticoagulation I performed a history & physical examination of the patient and discussed their management with my nurse practitioner, Cate Madsen. I reviewed the nurse practitioner's note and agree with the documented findings and plan of care. Lung sounds are positive for diffuse crackles throughout the lung ruiz. The findings and the impression was discussed with the patient. I attest to the documentation by the nurse practitioner. Time with Patient: Greater than 30
--- NOTE | 2020-12-04 11:00 | P.PN ---
Subjective COVID 19 related pneumonia and hypoxemia Acute hypoxic respiratory failure 60-year-old female came in with compensative shortness of breath found to have very low oxygen saturations patient was diagnosed with Covid 19 about 3 days ago patient had having symptoms for about a week. Patient was also company of fever chills patient has low-grade fever here. Patient was seen in [facility] subsequently transferred here patient is presently on 15 L of oxygen. Patient does have history of COPD. Patient was started on Decadron. Pulmonary was consulted. She was complaining of for cough without any significant sputum production. 11/24/2020, patient is seen for a follow-up. The patient is currently still on a BiPAP with an FiO2 of 100%; feeling slightly better; remains afebrile. The chest x-ray remains unchanged and the patient continues to have diffuse but the pulmonary infiltrates consistent with code 19 related pneumonia. Her inflammatory markers are quite abnormal. At LDH from today was 1006 and 41, and her CRP was 59. Note that the CRP level was slightly lower. The pro-calcitonin level from yesterday was 0.18. CPKs nonelevated and a triglyceride level is at 154. The patient has a d-dimer of 14.8. She remains on Lovenox at a dose of 40 mg subcu every 12 hours which is in the order of 0.5 mg per KG every 12 hours. In terms of treatment, the patient remains on Decadron 20 mg IV on the daily basis and she is on Remdesivir and she also received 2 doses of Actemra 400 mg IV. Her oral intake was noted to be quite low as the patient is unable to get herself off the BiPAP for oral intake. Based on that, the patient will be given a PICC line today and she'll be started on TPN for nutritional support to maintain her nutritional status. No fever. No chills. Hemodynamically stable. No other issues for now. Her CODE STATUS is full code. 11/25/2020 patient is seen and evaluated in room for a follow-up; patient became hypoxic ag ain and she had to be placed back on an FiO2 of 100% with a BiPAP pressure of 14/6 cm of water. Her current respiratory rate is in the order of 22-30 breaths per minute. The patient is comfortable. She is tolerating the treatment well. Laboratory review shows d-dimer is up to 30.01. Rest of the inflammatory markers show an LDH level of 1862 and the CRP is down to 40.8. Pro-calcitonin level was at 0.18. patient has received Lovenox at a dose of 40 mg subcu every 12 hours which is in the order of 0.5 mg per KG every 12 hours. In terms of treatment, the patient remains on Decadron 20 mg IV on the daily basis they #4 and she is on Remdesivir #5 and she also received 2 doses of Actemra 400 mg IV. Meanwhile be also inserted a PICC line in the left upper extremity and the patient was started on TPN for nutritional support. No altered mentation pH is resting comfortably in bed. Is slightly higher since the patient was started on TPN and septal 187 and the will going to put this patient on sliding scale blood sugar coverage. 11/26/2020 Patient remains in ICU and remains awake and alert; currently on BiPAP; FiO2 was weaned down to 70% with stable O2 saturation; patient remains on high-dose Decadron in form of 20 mg IV daily; inflammatory markers slowly trending down including CRP of 22, LDH of 1776, d-dimer 23.4 Patient is currently on TPN for nutrition at a rate of 45 hoursalong with blood glucose monitoring every 4 hours with insulin sliding scale; remains stable on IV fluids at 50 mL per hour Patient is being followed by pulmonology service and recommended to continue with Lovenox 40 mg subcu every 12 hours, Decadron 20 mg IV daily along with completing REM treatment; patient has received 2 doses of Actemra 400 mg IV. 11/27/2020 Patient remains on BiPAP with FiO2 of around 670%. Patient has some improvement in inflammatory markers. 11/28/2019 Patient remains on BiPAP with FiO2 of around 75%. 11/29/2019 No significant improvement in her respiratory status patient remains on the same Covid 19 cocktail as as today. Inflammatory markers have come down and stabilized. 11/30/2019 Patient remains on BiPAPand change in his in her respiratory status or BiPAP settings. Patient is being dialyzed at this time as there is a concern of possible CHF as well patient remains on TPN and colchicine 12/01/2019 Patient is off BiPAP and is on airvo, patient remains on Lasix with significant improvement in her respiratory status. Chest x-ray is also showing some improvement. Patient remains on TPN which is being tapered down patient was started on a by mouth diet patient is presently on and wasn't FiO2 and 65 L of oxygen 12/02/2019 Patient was pretty status remains the same patient is able to eat today we will be enough TPN today. 12/03/2019 Patient is a off TPN tolerating oral diet very well. 12/04/2019 Patient is clinically doing well patient respiratory status and inflammatory markers are all. Remains on 65 L and 70% FiO2 Review of systems: Unable to obtain All inpatient medications were reviewed and appropriate changes in these medications as dictated in the interval history and assessment and plan. Objective - Vital Signs Vital signs: Vital Signs Temp 98 F 12/04/20 04:00 Pulse 64 12/04/20 10:00 Resp 22 12/04/20 10:00 BP 105/67 12/04/20 10:00 Pulse Ox 94 L 12/04/20 10:00 Intake & Output 12/03/20 12/04/20 12/04/20 18:59 06:59 18:59 Intake Total 1460 230 110 Output Total 1125 880 175 Balance 335 -650 -65 Weight 81.873 kg 81.873 kg Intake: IV 380 230 110 KVO 120 130 10 Mvi, Adult No.4 with Vit 60 K 10 ml Trace (Conc-1Ml/ Dose) 1 ml Potassium Chloride 20 meq In Amino Acid 5%-D20w+Lytes*E* 1, 000 ml @ 45 mls/hr IV . [id number] [facility] Rx#:[id number] Piperacillin-Tazobactam 3 200 100 100 .375 gm In Sodium Chloride 0.9% 100 ml @ 25 mls/hr IVPB Q8HR [facility] Rx# :[id number] Oral 1080 Output: Urine 1125 880 175 Other: Voiding Method Indwelling Catheter Indwelling Catheter Indwelling Catheter - Exam PHYSICAL EXAMINATION: GENERAL: The patient is alert and oriented x3, not in any acute distress. Well developed, well nourished. HEENT: Pupils are round and equally reacting to light. EOMI. No scleral icterus. No conjunctival pallor. Normocephalic, atraumatic. No pharyngeal erythema. No thyromegaly. CARDIOVASCULAR: S1 and S2 present. No murmurs, rubs, or gallops. PULMONARY: There is some rhonchi and wheezing bilaterally ABDOMEN: Soft, nontender, nondistended, normoactive bowel sounds. No palpable organomegaly. MUSCULOSKELETAL: No joint swelling or deformity. EXTREMITIES: No cyanosis, clubbing, patient does have some pedal edema NEUROLOGICAL: Gross neurological examination did not reveal any focal deficits. SKIN: No rashes. Note: Because of COVID 19 isolation, some of the history and physical exam findings are indirect and obtained from nursing staff, and other physician examinations to avoid unnecessary contact with the patient. - Labs CBC & Chem 7: 12/04/20 03:19 12/04/20 03:19 Labs: Abnormal Lab Results - Last 24 Hours (Table) 12/03/20 12/03/20 12/04/20 Range/Units 17:11 23:49 03:19 RBC (3.80-5.40) m/uL Hgb (11.4-16.0) gm/dL Hct (34.0-46.0) % RDW (11.5-15.5) % Neutrophils # (1.3-7.7) k/uL Lymphocytes # (1.0-4.8) k/uL D-Dimer (<0.60) mg/L FEU Sodium 134 L (137-145) mmol/L Chloride 96 L (98-107) mmol/L Carbon Dioxide 34 H (22-30) mmol/L BUN 28 H (7-17) mg/dL Glucose 118 H (74-99) mg/dL POC Glucose (mg/dL) 167 H 125 H (75-99) mg/dL Phosphorus 4.6 H (2.5-4.5) mg/dL Magnesium 2.4 H (1.6-2.3) mg/dL Lactate Dehydrogenase (313-618) U/L 12/04/20 12/04/20 12/04/20 Range/Units 03:19 06:21 09:19 RBC 3.70 L (3.80-5.40) m/uL Hgb 10.8 L (11.4-16.0) gm/dL Hct 33.2 L (34.0-46.0) % RDW 16.5 H (11.5-15.5) % Neutrophils # 8.1 H (1.3-7.7) k/uL Lymphocytes # 0.3 L (1.0-4.8) k/uL D-Dimer 6.70 H (<0.60) mg/L FEU Sodium (137-145) mmol/L Chloride (98-107) mmol/L Carbon Dioxide (22-30) mmol/L BUN (7-17) mg/dL Glucose (74-99) mg/dL POC Glucose (mg/dL) 120 H (75-99) mg/dL Phosphorus (2.5-4.5) mg/dL Magnesium (1.6-2.3) mg/dL Lactate Dehydrogenase (313-618) U/L 12/04/20 Range/Units 09:19 RBC (3.80-5.40) m/uL Hgb (11.4-16.0) gm/dL Hct (34.0-46.0) % RDW (11.5-15.5) % Neutrophils # (1.3-7.7) k/uL Lymphocytes # (1.0-4.8) k/uL D-Dimer (<0.60) mg/L FEU Sodium (137-145) mmol/L Chloride (98-107) mmol/L Carbon Dioxide (22-30) mmol/L BUN (7-17) mg/dL Glucose (74-99) mg/dL POC Glucose (mg/dL) (75-99) mg/dL Phosphorus (2.5-4.5) mg/dL Magnesium (1.6-2.3) mg/dL Lactate Dehydrogenase 1660 H (313-618) U/L Assessment and Plan Plan: -Acute hypoxic respiratory failure: Patient is on high flow oxygen with airvo Winter off the BiPAP.. Secondary to Covid 19 pneumonia patient is on Decadron , on the GI prophylaxis as well as Lovenox for DVT prophylaxis. Completed remdesivir and actemra. Was started on colchicine as an anti-inflammatory and patient is on TPN for nutrition which is being tapered down and patient was started on by mouth diet -COPD with mild acute exacerbation secondary to Covid 19. Pulmonology following the patient -Elevated blood sugars secondary to Decadron patient is an before meals &at bedtime sliding scale insulin -Hyperlipidemia -Hypothyroidism -History of gout for which she'll patient is on colchicine which will be continued -Peripheral edema improved now -Peripheral vascular disease -Hiatal hernia with gastroesophageal reflux disease patient is on Prilosec CODE STATUS; full code
[2020-12-04 11:13] LABS: Glucose,Whole Blood 95 mg/dL (75-99)
[2020-12-04 17:28] LABS: Glucose,Whole Blood 97 mg/dL (75-99)
[2020-12-04 20:05] LABS: Glucose,Whole Blood 109 mg/dL (75-99)
[2020-12-04] MEDS: MELATONIN 3 MG TABLET PO SCH (21:01)
[2020-12-04] MEDS: ATORVASTATIN 40 MG TAB PO SCH (21:02)
[2020-12-04] MEDS: THEOPHYLLINE 24 HOUR 300 MG CAP.ER.24H PO SCH (21:02)
[2020-12-04] MEDS: PRAMIPEXOLE 0.5 MG TAB PO SCH (21:02)
[2020-12-04] MEDS: MONTELUKAST 10 MG TAB PO SCH (21:02)
[2020-12-04] MEDS: GABAPENTIN 300 MG CAP PO SCH (21:03)
[2020-12-05] MEDS: methylPREDNISolone SOD SUCCI 40 MG/ML 1 ML VIAL IV SCH ×4 (00:09→23:40)
[2020-12-05] MEDS: PIPERACILLIN-TAZOBACTAM 3.375 GM in SODIUM CHLORIDE 0.9% 100 ML IVPB SCH ×4 (00:10→23:40)
[2020-12-05 04:07] LABS: Anisocytosis Slight; Basophils % (A) 0 %; Eosinophils # (A) 0.1 k/uL (0-0.7); Eosinophils % (A) 1 %; HCT 35.6 % (34.0-46.0); HGB 11.8 gm/dL (11.4-16.0); Hypochromasia Slight; Lymphocytes # (A) 0.4 k/uL (1.0-4.8); Lymphocytes % (A) 4 %; MCH 29.7 pg (25.0-35.0); MCHC 33.1 g/dL (31.0-37.0); MCV 89.5 fL (80.0-100.0); Mean Platelet Volume 7.9; Monocytes # (A) 0.4 k/uL (0-1.0); Monocytes % (A) 4 %; Neutrophils % (A) 90 %; Platelet Count 232 k/uL (150-450); RBC 3.98 m/uL (3.80-5.40); RDW 16.4 % (11.5-15.5); WBC 9.9 k/uL (3.8-10.6)
[2020-12-05 04:18] LABS: African American GFR (CKD) >90 (>60 ml/min/1.73 sqM); Anion Gap 2 mmol/L; Blood Urea Nitrogen 26 mg/dL (7-17); C Reactive Protein <5.0 mg/L (<10.0); Calcium 9.4 mg/dL (8.4-10.2); Carbon Dioxide 34 mmol/L (22-30); Chloride 99 mmol/L (98-107); Glucose 94 mg/dL (74-99); LDH 1370 U/L (313-618); Magnesium 2.6 mg/dL (1.6-2.3); Non-African American GFR(CKD) 84 (>60 ml/min/1.73 sqM); Phosphorus 3.9 mg/dL (2.5-4.5); Sodium 135 mmol/L (137-145)
[2020-12-05] MEDS: LEVOTHYROXINE 75 MCG TAB PO SCH (06:16)
[2020-12-05 06:25] LABS: Glucose,Whole Blood 106 mg/dL (75-99)
[2020-12-05] MEDS: INSULIN ASPART (NovoLOG) 100 UNIT/ML VIAL SQ SCH ×4 (06:37→20:52)
[2020-12-05] MEDS: FAMOTIDINE 20 MG TAB PO SCH ×2 (08:12→21:22)
[2020-12-05] MEDS: ZINC SULFATE 220 MG CAP PO SCH (08:12)
[2020-12-05] MEDS: ENOXAPARIN 40 MG/0.4 ML SYRINGE SQ SCH ×2 (08:12→21:22)
[2020-12-05] MEDS: GABAPENTIN 100 MG CAP PO SCH ×2 (08:12→11:45)
[2020-12-05] MEDS: SUCRALFATE 1 GM TAB PO SCH ×4 (08:12→21:22)
[2020-12-05] MEDS: ASCORBIC ACID 500 MG TAB PO SCH (08:12)
[2020-12-05] MEDS: COLCHICINE 0.6 MG EACH PO SCH ×2 (08:13→21:22)
[2020-12-05] MEDS: FUROSEMIDE 10 MG/ML 4 ML VIAL IV SCH (08:13)
[2020-12-05] MEDS: allopurinoL 300 MG TAB PO SCH (08:13)
[2020-12-05] MEDS: SYMBICORT 160-4.5 MCG INHALER INHALATION SCH ×2 (08:20→20:18)
[2020-12-05] MEDS: TIOTROPIUM 2.5 MCG INHALER INHALATION SCH (08:20)
[2020-12-05] MEDS: ALBUTEROL HFA INHALER INHALATION SCH ×4 (08:20→20:18)
--- NOTE | 2020-12-05 08:33 | XR ---
EXAMINATION TYPE: XR chest 1V portable DATE OF EXAM: 12/05/2020 HISTORY: Shortness of breath. COMPARISON: 12/04/2020 TECHNIQUE: Single view of the chest is submitted. FINDINGS: Demonstrated are scattered senescent parenchymal change. Patchy perihilar and basilar infiltrates persist without significant change. Left-sided PICC line in is in place. The heart is stable. Hilar and mediastinal structures are within normal limits. Degenerative changes are seen of the dorsal spine. IMPRESSION: 1. Patchy perihilar and basilar infiltrates persist without significant change.
--- NOTE | 2020-12-05 09:15 | P.PN ---
Subjective Progress Note Date: 12/05/20 Principal diagnosis: 60-year-old here patient hospitalized for COVID 19 related pneumonia and hypoxemia. The patient was found to have a low oxygen saturation. She was diagnosed having COVID 19 on 11/20/2020. However, her symptoms started approximately a week prior to that as the patient started having generalized weakness, fever and chills. In the hospital at [place], she was found to be hypoxic and she was placed on 15 L of oxygen by nasal cannula. She was started on Decadron and following that she was transferred to [facility] on 11/20/2020 for further evaluation. On today's evaluation the patient remains on 15 L of oxygen by nasal cannula. Laboratory markers show a LDH of 1482, her CRP is 239, her pro-calcitonin level is at 1.28, her white cell count is at 4.5 and the patient has a lymphopenia with a lymphocyte count of 0.7. The electrolytes all within normal limits. Renal function is within normal limits. Glucose slightly elevated at 235. The chest x-ray is showing bilateral pulmonary infiltrates mainly involving the left lung and or significantly in the right upper lobe area. The patient is known to have COPD/asthma. The patient is also has history of hypothyroidism, hyperlipidemia and gout. She has history of hiatal hernia.. She is on Decadron 6 mg by mouth daily. She is on no DVT prophylaxis is receiving 40 mg of Lovenox her d-dimer level is at 0.36. On 11/22/2020 patient seen in follow-up in intensive care unit. She is awake and alert, oriented 3, she is currently on BiPAP support with pressures of 14/5 and FiO2 of 100%, and her SpO2 is a 99%. Patient states she doesn't feel significantly more short of breath, however she tachypneic with a respiratory rate of 28 BPM, she has been febrile T-max of 10 1F, her pro-calcitonin came back elevated at 1.28 suggesting possibility of bacterial infection. Today we started her on Remdesivir, today's date to off treatment, her inflammatory markers are trending up, LDH is up to 1940, CRP is 143.6, d-dimer is 0.78, and is on prophylactic dose of Lovenox 40 mg daily, electrolytes and renal profile are unremarkable. O'Christiano is 9.2, hemoglobin is 11, platelet count is 322, neutrophils is 8.3, and in lymphocyte count is 0.5. Patient is on day 2 of high-dose IV steroids 20 mg daily. Patient is awake and alert, oriented 3, yesterday she reversed her CODE STATUS, from DO NOT RESUSCITATE to full code. On 11/23/2020 patient seen in follow-up in the intensive care unit, she remains on BiPAP support, has been very much dependent on it, and he desaturates rapidly even for short periods when the BiPAP mask is removed to give the patient oral medications, current BiPAP settings of 14/60 and FiO2 of 100%, her pulse ox is 93%. Awake and alert, she is oriented 3, she states her breathing is stable as long as she does not move and lays very still in bed. She is complaining of a dry cough, no chest discomfort, no palpitations. She is in sinus mechanism, bradycardic with a rate of 55 BPM, blood pressure is 116/66, not on any vasopressor support, her current IV fluids are 0.9 normal saline at a rate of 20 ML per hour. Patient's pattern has improved, T-max in last 24 hours 99.5F. Urinalysis was sent and shows no signs of infection, blood cultures will be sent today, last pro calcitonin yesterday was 1.29, repeat pro calcitonin has been sent and pending at this time, patient was empirically placed on azithromycin and Rocephin. Maintenance on high-dose IV steroids currently with Decadron 20 mg IV on the daily basis. Absent been reviewed, her d-dimer has trended up, and is at 5.13 today, her Lovenox dose will be adjusted 0.5 mg/kg of body weight twice daily, LDH is down slightly, 1670, CRP is relatively stable at 140.5. Electronic are within normal limits, patient is mildly prerenal, BUN is 30 creatinine 0.74, she also remains on oral dose of Lasix and she has had very limited oral intake. She has only been able to take one or 2 sips of oral liquids and she states things do not taste right. White blood cell count is 6.5, hemoglobin is 10.5. His chest x-ray has been reviewed and diffuse increasing groundglass opacities. I discussed the patient's CODE STATUS with her, and she is agreeable to CPR, intubation, defibrillation, CODE STATUS will be changed to full code On 12/04/2020 patient seen in follow-up in the intensive care unit, she is off the BiPAP support, and currently on high flow oxygen per Airvo 60 L/m and FiO2 of 70%, with a pulse ox between 92-94%, she is breathing comfortably, denies any chest discomfort, she sitting up in a chair, she looks comfortable, she has had no fever or chills. Today's chest x-ray shows coarse infiltrates bilaterally with slight interval progression. Patient is tolerating oral diet. She is off the TPN. She is on 0.9 normal saline at a rate of 10 ML per hour, today's labs have been reviewed, d-dimer is improved from a few days back and is down to 6.70, patient is on Lovenox 40 mg twice a day, white blood cell count is 9.1, hemoglobin is 10.8, sodium is 134, potassium is 4.4, chloride is 96, CO2 is 34, B1 is 20, creatinine 0.64 LDH is 1660, CRP is less than 5. Patient remains on daily dose of IV Lasix, colchicine, Pepcid 20 mg twice a day, bronchodilators, IV Solu-Medrol 40 mg every 8 hours On 12/05/2020 patient is seen in follow-up in the intensive care unit, she ashwin ins on high flow oxygen per Airvo at 60 L/m and FiO2 of 75%, in the night her FiO2 have to be bumped up a little bit from a 70% because of an episode of desaturation. She also required 4 hours on BiPAP support. However this morning patient appears to be calm and comfortable, sitting up in the recliner, in her pulse ox on the Airvo at previously mentioned settings is 98-100%, she is breathing comfortaby. Patient is awake and alert, oriented 3, no altered mentation, she is in sinus mechanism, she is on 0.9 at 10 ML per hour, no other drips, she's been afebrile, vital signs have been stable. Chest x-ray has been reviewed, and it shows patchy perihilar and basilar infiltrates persistence wi thout significant change. She remains on once daily dose of Lasix, and she is in -1090 mL fluid balance over the last 24 hours. She has been tolerating oral intake, no nausea vomiting or abdominal pain. Currently patient remains on IV steroids with Solu-Medrol 40 mg every 8 hours, colchicine, vitamin C D and zinc, melatonin, and bronchodilators. Today's d-dimer is 7.58. And patient remains on Lovenox at 40 mg twice daily which is 0.5 mg/kg of body weight twice daily. Patient also continues on Zosyn for empiric antibiotic coverage. Blood cultures have shown no growth. Follow-up LDH is trending down on today's labs and is down to 1370, CRP is less than 5. Objective - Vital Signs Vital signs: Vital Signs Temp 97.7 F 12/05/20 04:00 Pulse 69 12/05/20 07:00 Resp 24 12/05/20 07:00 BP 122/80 12/05/20 07:00 Pulse Ox 88 L 12/05/20 07:00 Intake & Output 12/04/20 12/05/20 12/05/20 18:59 06:59 18:59 Intake Total 225 385 10 Output Total 975 725 50 Balance -750 -340 -40 Weight 81.873 kg Intake: IV 225 135 10 KVO 50 110 10 Piperacillin-Tazobactam 3 175 25 .375 gm In Sodium Chloride 0.9% 100 ml @ 25 mls/hr IVPB Q8HR [facility] Rx# :[id number] Oral 250 Output: Urine 975 725 50 Other: Voiding Method Indwelling Catheter Indwelling Catheter - Exam GENERAL EXAM: Alert, pleasant, 60-year-old white female on Airvo at 60 L/m, and FiO2 of 75% satting 98% comfortable in no apparent distress. HEAD: Normocephalic/atraumatic. EYES: Normal reaction of pupils, equal size. Conjunctiva pink, sclera white. NOSE: Clear with pink turbinates. THROAT: No erythema or exudates. NECK: No masses, no JVD, no thyroid enlargement, no adenopathy. CHEST: No chest wall deformity. Symmetrical expansion. LUNGS: Equal air entry with diffuse crackles CVS: Regular rate and rhythm, normal S1 and S2, no gallops, no murmurs, no rubs ABDOMEN: Soft, nontender. No hepatosplenomegaly, normal bowel sounds, no guarding or rigidity. EXTREMITIES: No clubbing, no edema, no cyanosis, 2+ pulses and upper and lower extremities. MUSCULOSKELETAL: Muscle strength and tone normal. SPINE: No scoliosis or deformity SKIN: No rashes CENTRAL NERVOUS SYSTEM: Alert and oriented -3. No focal deficits, tone is no rmal in all 4 extremities. PSYCHIATRIC: Alert and oriented -3. Appropriate affect. Intact judgment and insight. - Labs CBC & Chem 7: 12/05/20 03:45 12/05/20 03:45 Labs: Abnormal Lab Results - Last 24 Hours (Table) 12/04/20 12/04/20 12/04/20 Range/Units 09:19 09:19 20:03 RDW (11.5-15.5) % Neutrophils # (1.3-7.7) k/uL Lymphocytes # (1.0-4.8) k/uL D-Dimer 6.70 H (<0.60) mg/L FEU Sodium (137-145) mmol/L Carbon Dioxide (22-30) mmol/L BUN (7-17) mg/dL POC Glucose (mg/dL) 109 H (75-99) mg/dL Magnesium (1.6-2.3) mg/dL Lactate Dehydrogenase 1660 H (313-618) U/L 12/05/20 12/05/20 12/05/20 Range/Units 03:45 03:45 03:45 RDW 16.4 H (11.5-15.5) % Neutrophils # 9.0 H (1.3-7.7) k/uL Lymphocytes # 0.4 L (1.0-4.8) k/uL D-Dimer 7.58 H (<0.60) mg/L FEU Sodium 135 L (137-145) mmol/L Carbon Dioxide 34 H (22-30) mmol/L BUN 26 H (7-17) mg/dL POC Glucose (mg/dL) (75-99) mg/dL Magnesium 2.6 H (1.6-2.3) mg/dL Lactate Dehydrogenase 1370 H (313-618) U/L 12/05/20 Range/Units 06:24 RDW (11.5-15.5) % Neutrophils # (1.3-7.7) k/uL Lymphocytes # (1.0-4.8) k/uL D-Dimer (<0.60) mg/L FEU Sodium (137-145) mmol/L Carbon Dioxide (22-30) mmol/L BUN (7-17) mg/dL POC Glucose (mg/dL) 106 H (75-99) mg/dL Magnesium (1.6-2.3) mg/dL Lactate Dehydrogenase (313-618) U/L Assessment and Plan Plan: Assessment: #1. acute Covid 19 related pneumonia with bilateral pulmonary infiltrates most significant in the right upper lobe and the left lung seems to be diffusely infiltrated #2. acute severe hypoxic respiratory failure, worsening over last 24 hours, patient on FiO2 100%, and BiPAP support, the evidence of worsening inflammatory markers and worsening oxygenation. Started on Remdesivir treatment on 11/21/2020, and high-dose IV Decadron on 11/21/2020. Patient had rapid worsening of oxygenation and was transferred to the intensive care unit on 11/21/2020. Currently requiring BiPAP support with pressures of 14/5 and FiO2 100% On 11/23/2020 is on BiPAP support with FiO2 of 100%, and very much dependent on BiPAP support. On 12/04/2020 patient is on Airvo at 60 L in and FiO2 of 70% with pulse ox of 94% #3. Increased pro-calcitonin rule out possibility of bacterial infection, we'll cover the patient with azithromycin and Rocephin, we'll send urinalysis with cultures, we'll send a Legionella urine antigen and mycoplasma IgM and IgG, both mycoplasma titers were low, Legionella urine antigen was negative, blood cultures have shown no growth. #4. chronic persistent bronchial asthma with an FEV1 of 82-87% on outpatient basis maintained on Symbicort #5. steroid-induced hyperglycemia #6. hypertension #7. hypothyroidism #8. Osteoarthritis and gout #9. Peripheral neuropathy involving lower extremities #10. Peripheral vascular disease #11. Chronic normocytic anemia #12. More than [id number] smoking history patient is currently an ex-smoker hiatal hernia with reflux Plan: Continue current dose IV steroids, continue with a daily dose of IV Lasix, encourage deep breathing and coughing, wean down FiO2, may provide trials on BiPAP support if patient becomes fatigued, so far tolerating Airvo well this morning, vital signs have been stable, no fever or chills, we will obtain follow-up pro-calcitonin, if it comes back low we'll stop the empiric antibiotics. Inflammatory markers are improving, today's d-dimer has been noted, we will continue with current Lovenox dose 40 mg twice daily. We'll continue to closely monitor in the intensive care unit. I performed a history & physical examination of the patient and discussed their management with my nurse practitioner, Cate Madsen. I reviewed the nurse practitioner's note and agree with the documented findings and plan of care. Lung sounds are positive for diffuse crackles throughout the lung ruiz. The findings and the impression was discussed with the patient. I attest to the documentation by the nurse practitioner. Time with Patient: Greater than 30
--- NOTE | 2020-12-05 11:09 | P.PN ---
Subjective COVID 19 related pneumonia and hypoxemia Acute hypoxic respiratory failure 60-year-old female came in with compensative shortness of breath found to have very low oxygen saturations patient was diagnosed with Covid 19 about 3 days ago patient had having symptoms for about a week. Patient was also company of fever chills patient has low-grade fever here. Patient was seen in [facility] subsequently transferred here patient is presently on 15 L of oxygen. Patient does have history of COPD. Patient was started on Decadron. Pulmonary was consulted. She was complaining of for cough without any significant sputum production. 11/24/2020, patient is seen for a follow-up. The patient is currently still on a BiPAP with an FiO2 of 100%; feeling slightly better; remains afebrile. The chest x-ray remains unchanged and the patient continues to have diffuse but the pulmonary infiltrates consistent with code 19 related pneumonia. Her inflammatory markers are quite abnormal. At LDH from today was 1006 and 41, and her CRP was 59. Note that the CRP level was slightly lower. The pro-calcitonin level from yesterday was 0.18. CPKs nonelevated and a triglyceride level is at 154. The patient has a d-dimer of 14.8. She remains on Lovenox at a dose of 40 mg subcu every 12 hours which is in the order of 0.5 mg per KG every 12 hours. In terms of treatment, the patient remains on Decadron 20 mg IV on the daily basis and she is on Remdesivir and she also received 2 doses of Actemra 400 mg IV. Her oral intake was noted to be quite low as the patient is unable to get herself off the BiPAP for oral intake. Based on that, the patient will be given a PICC line today and she'll be started on TPN for nutritional support to maintain her nutritional status. No fever. No chills. Hemodynamically stable. No other issues for now. Her CODE STATUS is full code. 11/25/2020 patient is seen and evaluated in room for a follow-up; patient became hypoxic ag ain and she had to be placed back on an FiO2 of 100% with a BiPAP pressure of 14/6 cm of water. Her current respiratory rate is in the order of 22-30 breaths per minute. The patient is comfortable. She is tolerating the treatment well. Laboratory review shows d-dimer is up to 30.01. Rest of the inflammatory markers show an LDH level of 1862 and the CRP is down to 40.8. Pro-calcitonin level was at 0.18. patient has received Lovenox at a dose of 40 mg subcu every 12 hours which is in the order of 0.5 mg per KG every 12 hours. In terms of treatment, the patient remains on Decadron 20 mg IV on the daily basis they #4 and she is on Remdesivir #5 and she also received 2 doses of Actemra 400 mg IV. Meanwhile be also inserted a PICC line in the left upper extremity and the patient was started on TPN for nutritional support. No altered mentation pH is resting comfortably in bed. Is slightly higher since the patient was started on TPN and septal 187 and the will going to put this patient on sliding scale blood sugar coverage. 11/26/2020 Patient remains in ICU and remains awake and alert; currently on BiPAP; FiO2 was weaned down to 70% with stable O2 saturation; patient remains on high-dose Decadron in form of 20 mg IV daily; inflammatory markers slowly trending down including CRP of 22, LDH of 1776, d-dimer 23.4 Patient is currently on TPN for nutrition at a rate of 45 hoursalong with blood glucose monitoring every 4 hours with insulin sliding scale; remains stable on IV fluids at 50 mL per hour Patient is being followed by pulmonology service and recommended to continue with Lovenox 40 mg subcu every 12 hours, Decadron 20 mg IV daily along with completing REM treatment; patient has received 2 doses of Actemra 400 mg IV. 11/27/2020 Patient remains on BiPAP with FiO2 of around 670%. Patient has some improvement in inflammatory markers. 11/28/2020 Patient remains on BiPAP with FiO2 of around 75%. 11/29/2020 No significant improvement in her respiratory status patient remains on the same Covid 19 cocktail as as today. Inflammatory markers have come down and stabilized. 11/30/2020 Patient remains on BiPAPand change in his in her respiratory status or BiPAP settings. Patient is being dialyzed at this time as there is a concern of possible CHF as well patient remains on TPN and colchicine 12/01/2020 Patient is off BiPAP and is on airvo, patient remains on Lasix with significant improvement in her respiratory status. Chest x-ray is also showing some improvement. Patient remains on TPN which is being tapered down patient was started on a by mouth diet patient is presently on and wasn't FiO2 and 65 L of oxygen 12/02/2019 Patient was pretty status remains the same patient is able to eat today we will be enough TPN today. 12/03/2020 Patient is a off TPN tolerating oral diet very well. 12/04/2020 Patient is clinically doing well patient respiratory status and inflammatory markers are all. Remains on 65 L and 70% FiO2 12/05/2020 Continued respiratory status no significant worsening or improvement. Patient also looks clinically very well Constitutional: Denied any fatigue denied any fever. Cardio vascular: denied any chest pain, palpitations Gastrointestinal denied any nausea vomiting Pulmonary: Denied any shortness of breath cough Neurologic denied any new focal deficits All inpatient medications were reviewed and appropriate changes in these medications as dictated in the interval history and assessment and plan. Objective - Vital Signs Vital signs: Vital Signs Temp 97.8 F 12/05/20 08:00 Pulse 82 12/05/20 10:00 Resp 39 H 12/05/20 10:00 BP 102/66 12/05/20 10:00 Pulse Ox 94 L 12/05/20 10:00 Intake & Output 12/04/20 12/05/20 12/05/20 18:59 06:59 18:59 Intake Total 225 385 620 Output Total 975 725 850 Balance -750 -340 -230 Weight 81.873 kg Intake: IV 225 135 380 KVO 50 110 20 Piperacillin-Tazobactam 3 175 25 360 .375 gm In Sodium Chloride 0.9% 100 ml @ 25 mls/hr IVPB Q8HR [facility] Rx# :[id number] Oral 250 240 Output: Urine 975 725 850 Other: Voiding Method Indwelling Catheter Indwelling Catheter Indwelling Catheter - Exam PHYSICAL EXAMINATION: GENERAL: The patient is alert and oriented x3, not in any acute distress. Well developed, well nourished. HEENT: Pupils are round and equally reacting to light. EOMI. No scleral icterus. No conjunctival pallor. Normocephalic, atraumatic. No pharyngeal erythema. No thyromegaly. CARDIOVASCULAR: S1 and S2 present. No murmurs, rubs, or gallops. PULMONARY: There is some rhonchi and wheezing bilaterally ABDOMEN: Soft, nontender, nondistended, normoactive bowel sounds. No palpable organomegaly. MUSCULOSKELETAL: No joint swelling or deformity. EXTREMITIES: No cyanosis, clubbing, patient does have some pedal edema NEUROLOGICAL: Gross neurological examination did not reveal any focal deficits. SKIN: No rashes. Note: Because of COVID 19 isolation, some of the history and physical exam findings are indirect and obtained from nursing staff, and other physician examinations to avoid unnecessary contact with the patient. - Labs CBC & Chem 7: 12/05/20 03:45 12/05/20 03:45 Labs: Abnormal Lab Results - Last 24 Hours (Table) 12/04/20 12/05/20 12/05/20 Range/Units 20:03 03:45 03:45 RDW 16.4 H (11.5-15.5) % Neutrophils # 9.0 H (1.3-7.7) k/uL Lymphocytes # 0.4 L (1.0-4.8) k/uL D-Dimer (<0.60) mg/L FEU Sodium 135 L (137-145) mmol/L Carbon Dioxide 34 H (22-30) mmol/L BUN 26 H (7-17) mg/dL POC Glucose (mg/dL) 109 H (75-99) mg/dL Magnesium 2.6 H (1.6-2.3) mg/dL Lactate Dehydrogenase 1370 H (313-618) U/L 12/05/20 12/05/20 Range/Units 03:45 06:24 RDW (11.5-15.5) % Neutrophils # (1.3-7.7) k/uL Lymphocytes # (1.0-4.8) k/uL D-Dimer 7.58 H (<0.60) mg/L FEU Sodium (137-145) mmol/L Carbon Dioxide (22-30) mmol/L BUN (7-17) mg/dL POC Glucose (mg/dL) 106 H (75-99) mg/dL Magnesium (1.6-2.3) mg/dL Lactate Dehydrogenase (313-618) U/L Assessment and Plan Plan: -Acute hypoxic respiratory failure: Patient is on high flow oxygen with airvo Winter off the BiPAP.. Secondary to Covid 19 pneumonia patient is on Decadron , on the GI prophylaxis as well as Lovenox for DVT prophylaxis. Completed remdesivir and actemra. Was started on colchicine as an anti-inflammatory and patient is on TPN for nutrition which is being tapered down and patient was started on by mouth diet -COPD with mild acute exacerbation secondary to Covid 19. Pulmonology following the patient -Elevated blood sugars secondary to Decadron patient is an before meals &at be dtime sliding scale insulin -Hyperlipidemia -Hypothyroidism -History of gout for which she'll patient is on colchicine which will be continued -Peripheral edema improved now -Peripheral vascular disease -Hiatal hernia with gastroesophageal reflux disease patient is on Prilosec CODE STATUS; full code
[2020-12-05 11:51] LABS: Glucose,Whole Blood 93 mg/dL (75-99)
[2020-12-05 16:34] LABS: Glucose,Whole Blood 129 mg/dL (75-99)
[2020-12-05 20:50] LABS: Glucose,Whole Blood 130 mg/dL (75-99)
[2020-12-05] MEDS: THEOPHYLLINE 24 HOUR 300 MG CAP.ER.24H PO SCH (21:22)
[2020-12-05] MEDS: GABAPENTIN 300 MG CAP PO SCH (21:22)
[2020-12-05] MEDS: ATORVASTATIN 40 MG TAB PO SCH (21:22)
[2020-12-05] MEDS: PRAMIPEXOLE 0.5 MG TAB PO SCH (21:22)
[2020-12-05] MEDS: MELATONIN 3 MG TABLET PO SCH (21:22)
[2020-12-05] MEDS: MONTELUKAST 10 MG TAB PO SCH (21:22)
[2020-12-06 04:48] LABS: African American GFR (CKD) >90 (>60 ml/min/1.73 sqM); Anion Gap 4 mmol/L; Blood Urea Nitrogen 24 mg/dL (7-17); Carbon Dioxide 34 mmol/L (22-30); Chloride 97 mmol/L (98-107); Glucose 131 mg/dL (74-99); Magnesium 2.6 mg/dL (1.6-2.3); Non-African American GFR(CKD) >90 (>60 ml/min/1.73 sqM); Phosphorus 5.2 mg/dL (2.5-4.5); Potassium 4.3 mmol/L (3.5-5.1); Sodium 135 mmol/L (137-145)
[2020-12-06] MEDS: ALBUTEROL HFA INHALER INHALATION SCH ×4 (05:41→19:58)
[2020-12-06] MEDS: SYMBICORT 160-4.5 MCG INHALER INHALATION SCH ×2 (05:41→19:58)
[2020-12-06] MEDS: LEVOTHYROXINE 75 MCG TAB PO SCH (06:12)
[2020-12-06 06:16] LABS: Glucose,Whole Blood 125 mg/dL (75-99)
[2020-12-06] MEDS: INSULIN ASPART (NovoLOG) 100 UNIT/ML VIAL SQ SCH ×4 (06:26→20:12)
[2020-12-06] MEDS: FUROSEMIDE 10 MG/ML 4 ML VIAL IV SCH ×3 (08:16→20:11)
[2020-12-06] MEDS: ZINC SULFATE 220 MG CAP PO SCH (08:16)
[2020-12-06] MEDS: SUCRALFATE 1 GM TAB PO SCH ×4 (08:16→20:10)
[2020-12-06] MEDS: FAMOTIDINE 20 MG TAB PO SCH ×2 (08:16→20:10)
[2020-12-06] MEDS: methylPREDNISolone SOD SUCCI 40 MG/ML 1 ML VIAL IV SCH ×3 (08:16→23:18)
[2020-12-06] MEDS: GABAPENTIN 100 MG CAP PO SCH ×2 (08:16→11:54)
[2020-12-06] MEDS: ASCORBIC ACID 500 MG TAB PO SCH (08:16)
[2020-12-06] MEDS: ENOXAPARIN 40 MG/0.4 ML SYRINGE SQ SCH ×2 (08:17→20:11)
[2020-12-06] MEDS: allopurinoL 300 MG TAB PO SCH (08:17)
[2020-12-06] MEDS: PIPERACILLIN-TAZOBACTAM 3.375 GM in SODIUM CHLORIDE 0.9% 100 ML IVPB SCH (08:17)
[2020-12-06] MEDS: COLCHICINE 0.6 MG EACH PO SCH ×2 (08:17→20:11)
--- NOTE | 2020-12-06 08:32 | P.PN ---
Subjective Progress Note Date: 12/06/20 Principal diagnosis: 60-year-old here patient hospitalized for COVID 19 related pneumonia and hypoxemia. The patient was found to have a low oxygen saturation. She was diagnosed having COVID 19 on 11/20/2020. However, her symptoms started approximately a week prior to that as the patient started having generalized weakness, fever and chills. In the hospital at [place], she was found to be hypoxic and she was placed on 15 L of oxygen by nasal cannula. She was started on Decadron and following that she was transferred to [facility] on 11/20/2020 for further evaluation. On today's evaluation the patient remains on 15 L of oxygen by nasal cannula. Laboratory markers show a LDH of 1482, her CRP is 239, her pro-calcitonin level is at 1.28, her white cell count is at 4.5 and the patient has a lymphopenia with a lymphocyte count of 0.7. The electrolytes all within normal limits. Renal function is within normal limits. Glucose slightly elevated at 235. The chest x-ray is showing bilateral pulmonary infiltrates mainly involving the left lung and or significantly in the right upper lobe area. The patient is known to have COPD/asthma. The patient is also has history of hypothyroidism, hyperlipidemia and gout. She has history of hiatal hernia.. She is on Decadron 6 mg by mouth daily. She is on no DVT prophylaxis is receiving 40 mg of Lovenox her d-dimer level is at 0.36. On 11/22/2020 patient seen in follow-up in intensive care unit. She is awake and alert, oriented 3, she is currently on BiPAP support with pressures of 14/5 and FiO2 of 100%, and her SpO2 is a 99%. Patient states she doesn't feel significantly more short of breath, however she tachypneic with a respiratory rate of 28 BPM, she has been febrile T-max of 10 1F, her pro-calcitonin came back elevated at 1.28 suggesting possibility of bacterial infection. Today we started her on Remdesivir, today's date to off treatment, her inflammatory markers are trending up, LDH is up to 1940, CRP is 143.6, d-dimer is 0.78, and is on prophylactic dose of Lovenox 40 mg daily, electrolytes and renal profile are unremarkable. O'Christiano is 9.2, hemoglobin is 11, platelet count is 322, neutrophils is 8.3, and in lymphocyte count is 0.5. Patient is on day 2 of high-dose IV steroids 20 mg daily. Patient is awake and alert, oriented 3, yesterday she reversed her CODE STATUS, from DO NOT RESUSCITATE to full code. On 11/23/2020 patient seen in follow-up in the intensive care unit, she remains on BiPAP support, has been very much dependent on it, and he desaturates rapidly even for short periods when the BiPAP mask is removed to give the patient oral medications, current BiPAP settings of 14/60 and FiO2 of 100%, her pulse ox is 93%. Awake and alert, she is oriented 3, she states her breathing is stable as long as she does not move and lays very still in bed. She is complaining of a dry cough, no chest discomfort, no palpitations. She is in sinus mechanism, bradycardic with a rate of 55 BPM, blood pressure is 116/66, not on any vasopressor support, her current IV fluids are 0.9 normal saline at a rate of 20 ML per hour. Patient's pattern has improved, T-max in last 24 hours 99.5F. Urinalysis was sent and shows no signs of infection, blood cultures will be sent today, last pro calcitonin yesterday was 1.29, repeat pro calcitonin has been sent and pending at this time, patient was empirically placed on azithromycin and Rocephin. Maintenance on high-dose IV steroids currently with Decadron 20 mg IV on the daily basis. Absent been reviewed, her d-dimer has trended up, and is at 5.13 today, her Lovenox dose will be adjusted 0.5 mg/kg of body weight twice daily, LDH is down slightly, 1670, CRP is relatively stable at 140.5. Electronic are within normal limits, patient is mildly prerenal, BUN is 30 creatinine 0.74, she also remains on oral dose of Lasix and she has had very limited oral intake. She has only been able to take one or 2 sips of oral liquids and she states things do not taste right. White blood cell count is 6.5, hemoglobin is 10.5. His chest x-ray has been reviewed and diffuse increasing groundglass opacities. I discussed the patient's CODE STATUS with her, and she is agreeable to CPR, intubation, defibrillation, CODE STATUS will be changed to full code On 12/04/2020 patient seen in follow-up in the intensive care unit, she is off the BiPAP support, and currently on high flow oxygen per Airvo 60 L/m and FiO2 of 70%, with a pulse ox between 92-94%, she is breathing comfortably, denies any chest discomfort, she sitting up in a chair, she looks comfortable, she has had no fever or chills. Today's chest x-ray shows coarse infiltrates bilaterally with slight interval progression. Patient is tolerating oral diet. She is off the TPN. She is on 0.9 normal saline at a rate of 10 ML per hour, today's labs have been reviewed, d-dimer is improved from a few days back and is down to 6.70, patient is on Lovenox 40 mg twice a day, white blood cell count is 9.1, hemoglobin is 10.8, sodium is 134, potassium is 4.4, chloride is 96, CO2 is 34, B1 is 20, creatinine 0.64 LDH is 1660, CRP is less than 5. Patient remains on daily dose of IV Lasix, colchicine, Pepcid 20 mg twice a day, bronchodilators, IV Solu-Medrol 40 mg every 8 hours On 12/05/2020 patient is seen in follow-up in the intensive care unit, she ashwin ins on high flow oxygen per Airvo at 60 L/m and FiO2 of 75%, in the night her FiO2 have to be bumped up a little bit from a 70% because of an episode of desaturation. She also required 4 hours on BiPAP support. However this morning patient appears to be calm and comfortable, sitting up in the recliner, in her pulse ox on the Airvo at previously mentioned settings is 98-100%, she is breathing comfortaby. Patient is awake and alert, oriented 3, no altered mentation, she is in sinus mechanism, she is on 0.9 at 10 ML per hour, no other drips, she's been afebrile, vital signs have been stable. Chest x-ray has been reviewed, and it shows patchy perihilar and basilar infiltrates persistence wi thout significant change. She remains on once daily dose of Lasix, and she is in -1090 mL fluid balance over the last 24 hours. She has been tolerating oral intake, no nausea vomiting or abdominal pain. Currently patient remains on IV steroids with Solu-Medrol 40 mg every 8 hours, colchicine, vitamin C D and zinc, melatonin, and bronchodilators. Today's d-dimer is 7.58. And patient remains on Lovenox at 40 mg twice daily which is 0.5 mg/kg of body weight twice daily. Patient also continues on Zosyn for empiric antibiotic coverage. Blood cultures have shown no growth. Follow-up LDH is trending down on today's labs and is down to 1370, CRP is less than 5. On 12/06/2020 patient seen in follow-up in intensive care unit, patient remains on Airvo at 60L and Fio2 75%. Satting between 88-91%, did require BiPap support last night for a few hours, currently back on Airvo. Patient is breathing comfortably, no acute distress, no chest discomfort. No fever, or chills. Patient is currently on 0.9 NS at 10 ml/hr. patient remains on Lasix, she is in -1.8 L fluid balance over the last 24 hours, however her chest x-ray shows worsening airspace disease, and pulmonary edema. Blood pressure has been stable, today's labs have been reviewed, showing serum sodium of 135, potassium is 4.3, chloride is 97, CO2 is 24, B1 is 24, creatinine 0.64. Proalcitonin level came back negative, we can stop the Zosyn cultures are negative. No fever or chills. No nausea vomiting diarrhea. Objective - Vital Signs Vital signs: Vital Signs Temp 97.7 F 12/06/20 04:00 Pulse 78 12/06/20 07:00 Resp 24 12/06/20 07:00 BP 102/67 12/06/20 07:00 Pulse Ox 91 L 12/06/20 07:00 Intake & Output 12/05/20 12/06/20 12/06/20 18:59 06:59 18:59 Intake Total 1140 120 Output Total 1620 1450 Balance -480 -1330 Weight 80.6 kg Intake: IV 300 120 KVO 100 120 Piperacillin-Tazobactam 3 200 .375 gm In Sodium Chloride 0.9% 100 ml @ 25 mls/hr IVPB Q8HR [facility] Rx# :[id number] Oral 840 Output: Urine 1620 1450 Other: Voiding Method Indwelling Catheter Indwelling Catheter - Exam GENERAL EXAM: Alert, pleasant, 60-year-old white female on Airvo at 60 L/m, and FiO2 of 75% satting 90% comfortable in no apparent distress. HEAD: Normocephalic/atraumatic. EYES: Normal reaction of pupils, equal size. Conjunctiva pink, sclera white. NOSE: Clear with pink turbinates. THROAT: No erythema or exudates. NECK: No masses, no JVD, no thyroid enlargement, no adenopathy. CHEST: No chest wall deformity. Symmetrical expansion. LUNGS: Equal air entry with diffuse crackles CVS: Regular rate and rhythm, normal S1 and S2, no gallops, no murmurs, no rubs ABDOMEN: Soft, nontender. No hepatosplenomegaly, normal bowel sounds, no guarding or rigidity. EXTREMITIES: No clubbing, no edema, no cyanosis, 2+ pulses and upper and lower extremities. MUSCULOSKELETAL: Muscle strength and tone normal. SPINE: No scoliosis or deformity SKIN: No rashes CENTRAL NERVOUS SYSTEM: Alert and oriented -3. No focal deficits, tone is normal in all 4 extremities. PSYCHIATRIC: Alert and oriented -3. Appropriate affect. Intact judgment and insight. - Labs CBC & Chem 7: 12/05/20 03:45 12/06/20 03:49 Labs: Abnormal Lab Results - Last 24 Hours (Table) 12/05/20 12/05/20 12/06/20 Range/Units 16:33 20:47 03:49 Sodium 135 L (137-145) mmol/L Chloride 97 L (98-107) mmol/L Carbon Dioxide 34 H (22-30) mmol/L BUN 24 H (7-17) mg/dL Glucose 131 H (74-99) mg/dL POC Glucose (mg/dL) 129 H 130 H (75-99) mg/dL Phosphorus 5.2 H (2.5-4.5) mg/dL Magnesium 2.6 H (1.6-2.3) mg/dL 12/06/20 Range/Units 06:14 Sodium (137-145) mmol/L Chloride (98-107) mmol/L Carbon Dioxide (22-30) mmol/L BUN (7-17) mg/dL Glucose (74-99) mg/dL POC Glucose (mg/dL) 125 H (75-99) mg/dL Phosphorus (2.5-4.5) mg/dL Magnesium (1.6-2.3) mg/dL Assessment and Plan Plan: Assessment: #1. acute Covid 19 related pneumonia with bilateral pulmonary infiltrates most significant in the right upper lobe and the left lung seems to be diffusely i nfiltrated #2. acute severe hypoxic respiratory failure, worsening over last 24 hours, patient on FiO2 100%, and BiPAP support, the evidence of worsening inflammatory markers and worsening oxygenation. Started on Remdesivir treatment on 11/21/2020, and high-dose IV Decadron on 11/21/2020. Patient had rapid worsening of oxygenation and was transferred to the intensive care unit on 11/21/2020. Currently requiring BiPAP support with pressures of 14/5 and FiO2 100% On 11/23/2020 is on BiPAP support with FiO2 of 100%, and very much dependent on BiPAP support. On 12/04/2020 patient is on Airvo at 60 L in and FiO2 of 70% with pulse ox of 94% #3. Increased pro-calcitonin rule out possibility of bacterial infection, we'll cover the patient with azithromycin and Rocephin, we'll send urinalysis with cultures, we'll send a Legionella urine antigen and mycoplasma IgM and IgG, both mycoplasma titers were low, Legionella urine antigen was negative, blood cultures have shown no growth. #4. chronic persistent bronchial asthma with an FEV1 of 82-87% on outpatient basis maintained on Symbicort #5. steroid-induced hyperglycemia #6. hypertension #7. hypothyroidism #8. Osteoarthritis and gout #9. Peripheral neuropathy involving lower extremities #10. Peripheral vascular disease #11. Chronic normocytic anemia #12. More than 21-upje-lafq smoking history patient is currently an ex-smoker hiatal hernia with reflux Plan: Continue current medical treatment, today's chest x-ray has been reviewed showing increased bilateral airspace disease, the possibility of fluid overload, we will increase dose of Lasix to twice daily, repeat chest x-ray in the morning, continue current dose of steroids, we will obtain follow-up inflammatory markers, we'll continue close observation in the ICU. I performed a history & physical examination of the patient and discussed their management with my nurse practitioner, Cate Madsen. I reviewed the nurse practitioner's note and agree with the documented findings and plan of care. Lung sounds are positive for diffuse crackles throughout the lung ruiz. The findings and the impression was discussed with the patient. I attest to the documentation by the nurse practitioner. Time with Patient: Greater than 30
--- NOTE | 2020-12-06 09:09 | XR ---
EXAMINATION TYPE: XR chest 1V DATE OF EXAM: 12/06/2020 COMPARISON: Prior chest x-ray 12/05/2020 HISTORY: Covid pneumonia TECHNIQUE: Single frontal view of the chest is obtained. FINDINGS: Bilateral airspace disease is present. Patient is rotated. No evident pneumothorax or pleu ral effusion. Cardiac mediastinal silhouette likely unchanged accounting for rotation. Left-sided PIC C line shows the distal tip at the cavoatrial junction level. There are overlying leads. IMPRESSION: Findings consistent with pneumonia, correlate to exclude edema, rotated exam
[2020-12-06] MEDS: TIOTROPIUM 2.5 MCG INHALER INHALATION SCH (09:19)
[2020-12-06 11:47] LABS: Glucose,Whole Blood 115 mg/dL (75-99)
--- NOTE | 2020-12-06 12:22 | P.PN ---
Subjective COVID 19 related pneumonia and hypoxemia Acute hypoxic respiratory failure 60-year-old female came in with compensative shortness of breath found to have very low oxygen saturations patient was diagnosed with Covid 19 about 3 days ago patient had having symptoms for about a week. Patient was also company of fever chills patient has low-grade fever here. Patient was seen in [facility] subsequently transferred here patient is presently on 15 L of oxygen. Patient does have history of COPD. Patient was started on Decadron. Pulmonary was consulted. She was complaining of for cough without any significant sputum production. 11/24/2020, patient is seen for a follow-up. The patient is currently still on a BiPAP with an FiO2 of 100%; feeling slightly better; remains afebrile. The chest x-ray remains unchanged and the patient continues to have diffuse but the pulmonary infiltrates consistent with code 19 related pneumonia. Her inflammatory markers are quite abnormal. At LDH from today was 1006 and 41, and her CRP was 59. Note that the CRP level was slightly lower. The pro-calcitonin level from yesterday was 0.18. CPKs nonelevated and a triglyceride level is at 154. The patient has a d-dimer of 14.8. She remains on Lovenox at a dose of 40 mg subcu every 12 hours which is in the order of 0.5 mg per KG every 12 hours. In terms of treatment, the patient remains on Decadron 20 mg IV on the daily basis and she is on Remdesivir and she also received 2 doses of Actemra 400 mg IV. Her oral intake was noted to be quite low as the patient is unable to get herself off the BiPAP for oral intake. Based on that, the patient will be given a PICC line today and she'll be started on TPN for nutritional support to maintain her nutritional status. No fever. No chills. Hemodynamically stable. No other issues for now. Her CODE STATUS is full code. 11/25/2020 patient is seen and evaluated in room for a follow-up; patient became hypoxic ag ain and she had to be placed back on an FiO2 of 100% with a BiPAP pressure of 14/6 cm of water. Her current respiratory rate is in the order of 22-30 breaths per minute. The patient is comfortable. She is tolerating the treatment well. Laboratory review shows d-dimer is up to 30.01. Rest of the inflammatory markers show an LDH level of 1862 and the CRP is down to 40.8. Pro-calcitonin level was at 0.18. patient has received Lovenox at a dose of 40 mg subcu every 12 hours which is in the order of 0.5 mg per KG every 12 hours. In terms of treatment, the patient remains on Decadron 20 mg IV on the daily basis they #4 and she is on Remdesivir #5 and she also received 2 doses of Actemra 400 mg IV. Meanwhile be also inserted a PICC line in the left upper extremity and the patient was started on TPN for nutritional support. No altered mentation pH is resting comfortably in bed. Is slightly higher since the patient was started on TPN and septal 187 and the will going to put this patient on sliding scale blood sugar coverage. 11/26/2020 Patient remains in ICU and remains awake and alert; currently on BiPAP; FiO2 was weaned down to 70% with stable O2 saturation; patient remains on high-dose Decadron in form of 20 mg IV daily; inflammatory markers slowly trending down including CRP of 22, LDH of 1776, d-dimer 23.4 Patient is currently on TPN for nutrition at a rate of 45 hoursalong with blood glucose monitoring every 4 hours with insulin sliding scale; remains stable on IV fluids at 50 mL per hour Patient is being followed by pulmonology service and recommended to continue with Lovenox 40 mg subcu every 12 hours, Decadron 20 mg IV daily along with completing REM treatment; patient has received 2 doses of Actemra 400 mg IV. 11/27/2020 Patient remains on BiPAP with FiO2 of around 670%. Patient has some improvement in inflammatory markers. 11/28/2020 Patient remains on BiPAP with FiO2 of around 75%. 11/29/2020 No significant improvement in her respiratory status patient remains on the same Covid 19 cocktail as as today. Inflammatory markers have come down and stabilized. 11/30/2020 Patient remains on BiPAPand change in his in her respiratory status or BiPAP settings. Patient is being dialyzed at this time as there is a concern of possible CHF as well patient remains on TPN and colchicine 12/01/2020 Patient is off BiPAP and is on airvo, patient remains on Lasix with significant improvement in her respiratory status. Chest x-ray is also showing some improvement. Patient remains on TPN which is being tapered down patient was started on a by mouth diet patient is presently on and wasn't FiO2 and 65 L of oxygen 12/02/2019 Patient was pretty status remains the same patient is able to eat today we will be enough TPN today. 12/03/2020 Patient is a off TPN tolerating oral diet very well. 12/04/2020 Patient is clinically doing well patient respiratory status and inflammatory markers are all. Remains on 65 L and 70% FiO2 12/05/2020 Continued respiratory status no significant worsening or improvement. Patient also looks clinically very well 12/06/2020 Patient respiratory status remains the same. Constitutional: Denied any fatigue denied any fever. Cardio vascular: denied any chest pain, palpitations Gastrointestinal denied any nausea vomiting Pulmonary: Denied any shortness of breath cough Neurologic denied any new focal deficits All inpatient medications were reviewed and appropriate changes in these medications as dictated in the interval history and assessment and plan. Objective - Vital Signs Vital signs: Vital Signs Temp 97.6 F 12/06/20 08:00 Pulse 95 12/06/20 09:00 Resp 27 H 12/06/20 09:00 BP 95/67 12/06/20 09:00 Pulse Ox 91 L 12/06/20 09:00 Intake & Output 12/05/20 12/06/20 12/06/20 18:59 06:59 18:59 Intake Total 1140 120 Output Total 1620 1450 Balance -480 -1330 Weight 80.6 kg Intake: IV 300 120 KVO 100 120 Piperacillin-Tazobactam 3 200 .375 gm In Sodium Chloride 0.9% 100 ml @ 25 mls/hr IVPB Q8HR [facility] Rx# :[id number] Oral 840 Output: Urine 1620 1450 Other: Voiding Method Indwelling Catheter Indwelling Catheter Indwelling Catheter - Exam PHYSICAL EXAMINATION: GENERAL: The patient is alert and oriented x3, not in any acute distress. Well developed, well nourished. HEENT: Pupils are round and equally reacting to light. EOMI. No scleral icterus. No conjunctival pallor. Normocephalic, atraumatic. No pharyngeal erythema. No thyromegaly. CARDIOVASCULAR: S1 and S2 present. No murmurs, rubs, or gallops. PULMONARY: There is some rhonchi and wheezing bilaterally ABDOMEN: Soft, nontender, nondistended, normoactive bowel sounds. No palpable organomegaly. MUSCULOSKELETAL: No joint swelling or deformity. EXTREMITIES: No cyanosis, clubbing, patient does have some pedal edema NEUROLOGICAL: Gross neurological examination did not reveal any focal deficits. SKIN: No rashes. Note: Because of COVID 19 isolation, some of the history and physical exam findings are indirect and obtained from nursing staff, and other physician examinations to avoid unnecessary contact with the patient. - Labs CBC & Chem 7: 12/05/20 03:45 12/06/20 03:49 Labs: Abnormal Lab Results - Last 24 Hours (Table) 12/05/20 12/05/20 12/06/20 Range/Units 16:33 20:47 03:49 Sodium 135 L (137-145) mmol/L Chloride 97 L (98-107) mmol/L Carbon Dioxide 34 H (22-30) mmol/L BUN 24 H (7-17) mg/dL Glucose 131 H (74-99) mg/dL POC Glucose (mg/dL) 129 H 130 H (75-99) mg/dL Phosphorus 5.2 H (2.5-4.5) mg/dL Magnesium 2.6 H (1.6-2.3) mg/dL 12/06/20 12/06/20 Range/Units 06:14 11:45 Sodium (137-145) mmol/L Chloride (98-107) mmol/L Carbon Dioxide (22-30) mmol/L BUN (7-17) mg/dL Glucose (74-99) mg/dL POC Glucose (mg/dL) 125 H 115 H (75-99) mg/dL Phosphorus (2.5-4.5) mg/dL Magnesium (1.6-2.3) mg/dL Assessment and Plan Plan: -Acute hypoxic respiratory failure: Patient is on high flow oxygen with airvo Winter off the BiPAP.. Secondary to Covid 19 pneumonia patient is on Decadron , on the GI prophylaxis as well as Lovenox for DVT prophylaxis. Completed remdesivir and actemra. Was started on colchicine as an anti-inflammatory and patient is on TPN for nutrition which is being tapered down and patient was started on by mouth diet -COPD with mild acute exacerbation secondary to Covid 19. Pulmonology following the patient -Elevated blood sugars secondary to Decadron patient is an before meals &at bedtime sliding scale insulin -Hyperlipidemia -Hypothyroidism -History of gout for which she'll patient is on colchicine which will be continued -Peripheral edema improved now -Peripheral vascular disease -Hiatal hernia with gastroesophageal reflux disease patient is on Prilosec CODE STATUS; full code
[2020-12-06] MEDS: MONTELUKAST 10 MG TAB PO SCH (20:10)
[2020-12-06] MEDS: MELATONIN 3 MG TABLET PO SCH (20:10)
[2020-12-06] MEDS: GABAPENTIN 300 MG CAP PO SCH (20:10)
[2020-12-06] MEDS: ATORVASTATIN 40 MG TAB PO SCH (20:10)
[2020-12-06] MEDS: THEOPHYLLINE 24 HOUR 300 MG CAP.ER.24H PO SCH (20:11)
[2020-12-06 20:12] LABS: Glucose,Whole Blood 108 mg/dL (75-99)
[2020-12-06] MEDS: PRAMIPEXOLE 0.5 MG TAB PO SCH (20:45)
[2020-12-07 04:23] LABS: Anisocytosis Slight; Basophils % (A) 0 %; Eosinophils % (A) 0 %; HCT 34.6 % (34.0-46.0); HGB 11.4 gm/dL (11.4-16.0); Lymphocytes # (A) 0.3 k/uL (1.0-4.8); Lymphocytes % (A) 3 %; MCH 29.3 pg (25.0-35.0); MCHC 33.1 g/dL (31.0-37.0); MCV 88.5 fL (80.0-100.0); Mean Platelet Volume 8.5; Monocytes # (A) 0.2 k/uL (0-1.0); Monocytes % (A) 2 %; Neutrophils # (A) 9.7 k/uL (1.3-7.7); Neutrophils % (A) 95 %; Platelet Count 119 k/uL (150-450); RBC 3.91 m/uL (3.80-5.40); RDW 16.4 % (11.5-15.5); WBC 10.2 k/uL (3.8-10.6)
[2020-12-07 04:46] LABS: ALT 47 U/L (4-34); AST 24 U/L (14-36); African American GFR (CKD) >90 (>60 ml/min/1.73 sqM); Albumin 3.1 g/dL (3.5-5.0); Alkaline Phosphatase 96 U/L (38-126); Anion Gap 5 mmol/L; Blood Urea Nitrogen 26 mg/dL (7-17); Carbon Dioxide 33 mmol/L (22-30); Chloride 96 mmol/L (98-107); Glucose 130 mg/dL (74-99); LDH 1300 U/L (313-618); Non-African American GFR(CKD) >90 (>60 ml/min/1.73 sqM); Potassium 3.3 mmol/L (3.5-5.1); Sodium 134 mmol/L (137-145); Total Bilirubin 0.9 mg/dL (0.2-1.3); Total Protein 5.4 g/dL (6.3-8.2)
[2020-12-07] MEDS: POTASSIUM CHLORIDE ER 20 MEQ TAB.ER PO SCH ×2 (05:16→06:12)
[2020-12-07 06:00] LABS: C Reactive Protein <5.0 mg/L (<10.0)
[2020-12-07] MEDS: LEVOTHYROXINE 75 MCG TAB PO SCH (06:11)
[2020-12-07 06:15] LABS: Glucose,Whole Blood 138 mg/dL (75-99)
[2020-12-07] MEDS: INSULIN ASPART (NovoLOG) 100 UNIT/ML VIAL SQ SCH ×4 (06:58→20:37)
--- NOTE | 2020-12-07 07:37 | XR ---
EXAMINATION TYPE: XR chest 1V portable DATE OF EXAM: 12/07/2020 COMPARISON: 12/06/2020 INDICATION: ICU management. Prior abnormal chest TECHNIQUE: Single frontal view of the chest is obtained. FINDINGS: The heart size is normal. The pulmonary vasculature is prominent. Diffuse increased lung markings are present. This may be more focal at the right lung base. Findings are improving from comparison. Left-sided PICC line is present with tip in distal superior vena cava region. IMPRESSION: 1. Diffuse increased lung markings more focal in the right lower lobe. Correlate for atelectasis, aty pical pneumonia, atypical pulmonary edema. Findings are improving from comparison.
[2020-12-07] MEDS: SYMBICORT 160-4.5 MCG INHALER INHALATION SCH ×2 (08:07→21:12)
[2020-12-07] MEDS: ALBUTEROL HFA INHALER INHALATION SCH ×4 (08:07→21:12)
[2020-12-07] MEDS: TIOTROPIUM 2.5 MCG INHALER INHALATION SCH (08:07)
--- NOTE | 2020-12-07 08:57 | P.PN ---
Subjective Progress Note Date: 12/07/20 Principal diagnosis: 60-year-old here patient hospitalized for COVID 19 related pneumonia and hypoxemia. The patient was found to have a low oxygen saturation. She was diagnosed having COVID 19 on 11/20/2020. However, her symptoms started approximately a week prior to that as the patient started having generalized weakness, fever and chills. In the hospital at [place] [facility], she was found to be hypoxic and she was placed on 15 L of oxygen by nasal cannula. She was started on Decadron and following that she was transferred to [facility] on 11/20/2020 for further evaluation. On today's evaluation the patient remains on 15 L of oxygen by nasal cannula. Laboratory markers show a LDH of 1482, her CRP is 239, her pro-calcitonin level is at 1.28, her white cell count is at 4.5 and the patient has a lymphopenia with a lymphocyte count of 0.7. The electrolytes all within normal limits. Renal function is within normal limits. Glucose slightly elevated at 235. The chest x-ray is showing bilateral pulmonary infiltrates mainly involving the left lung and or significantly in the right upper lobe area. The patient is known to have COPD/asthma. The patient is also has history of hypothyroidism, hyperlipidemia and gout. She has history of hiatal hernia.. She is on Decadron 6 mg by mouth daily. She is on no DVT prophylaxis is receiving 40 mg of Lovenox her d-dimer level is at 0.36. On 11/22/2020 patient seen in follow-up in intensive care unit. She is awake and alert, oriented 3, she is currently on BiPAP support with pressures of 14/5 and FiO2 of 100%, and her SpO2 is a 99%. Patient states she doesn't feel significantly more short of breath, however she tachypneic with a respiratory rate of 28 BPM, she has been febrile T-max of 10 1F, her pro-calcitonin came back elevated at 1.28 suggesting possibility of bacterial infection. Today we started her on Remdesivir, today's date to off treatment, her inflammatory markers are trending up, LDH is up to 1940, CRP is 143.6, d-dimer is 0.78, and is on prophylactic dose of Lovenox 40 mg daily, electrolytes and renal profile are unremarkable. O'Christiano is 9.2, hemoglobin is 11, platelet count is 322, neutrophils is 8.3, and in lymphocyte count is 0.5. Patient is on day 2 of high-dose IV steroids 20 mg daily. Patient is awake and alert, oriented 3, yesterday she reversed her CODE STATUS, from DO NOT RESUSCITATE to full code. On 11/23/2020 patient seen in follow-up in the intensive care unit, she remains on BiPAP support, has been very much dependent on it, and he desaturates rapidly even for short periods when the BiPAP mask is removed to give the patient oral medications, current BiPAP settings of 14/60 and FiO2 of 100%, her pulse ox is 93%. Awake and alert, she is oriented 3, she states her breathing is stable as long as she does not move and lays very still in bed. She is complaining of a dry cough, no chest discomfort, no palpitations. She is in sinus mechanism, bradycardic with a rate of 55 BPM, blood pressure is 116/66, not on any vasopressor support, her current IV fluids are 0.9 normal saline at a rate of 20 ML per hour. Patient's pattern has improved, T-max in last 24 hours 99.5F. Urinalysis was sent and shows no signs of infection, blood cultures will be sent today, last pro calcitonin yesterday was 1.29, repeat pro calcitonin has been sent and pending at this time, patient was empirically placed on azithromycin and Rocephin. Maintenance on high-dose IV steroids currently with Decadron 20 mg IV on the daily basis. Absent been reviewed, her d-dimer has trended up, and is at 5.13 today, her Lovenox dose will be adjusted 0.5 mg/kg of body weight twice daily, LDH is down slightly, 1670, CRP is relatively stable at 140.5. Electronic are within normal limits, patient is mildly prerenal, BUN is 30 creatinine 0.74, she also remains on oral dose of Lasix and she has had very limited oral intake. She has only been able to take one or 2 sips of oral liquids and she states things do not taste right. White blood cell count is 6.5, hemoglobin is 10.5. His chest x-ray has been reviewed and diffuse increasing groundglass opacities. I discussed the patient's CODE STATUS with her, and she is agreeable to CPR, intubation, defibrillation, CODE STATUS will be changed to full code On 12/04/2020 patient seen in follow-up in the intensive care unit, she is off the BiPAP support, and currently on high flow oxygen per Airvo 60 L/m and FiO2 of 70%, with a pulse ox between 92-94%, she is breathing comfortably, denies any chest discomfort, she sitting up in a chair, she looks comfortable, she has had no fever or chills. Today's chest x-ray shows coarse infiltrates bilaterally with slight interval progression. Patient is tolerating oral diet. She is off the TPN. She is on 0.9 normal saline at a rate of 10 ML per hour, today's labs have been reviewed, d-dimer is improved from a few days back and is down to 6.70, patient is on Lovenox 40 mg twice a day, white blood cell count is 9.1, hemoglobin is 10.8, sodium is 134, potassium is 4.4, chloride is 96, CO2 is 34, B1 is 20, creatinine 0.64 LDH is 1660, CRP is less than 5. Patient remains on daily dose of IV Lasix, colchicine, Pepcid 20 mg twice a day, bronchodilators, IV Solu-Medrol 40 mg every 8 hours On 12/05/2020 patient is seen in follow-up in the intensive care unit, she ashwin ins on high flow oxygen per Airvo at 60 L/m and FiO2 of 75%, in the night her FiO2 have to be bumped up a little bit from a 70% because of an episode of desaturation. She also required 4 hours on BiPAP support. However this morning patient appears to be calm and comfortable, sitting up in the recliner, in her pulse ox on the Airvo at previously mentioned settings is 98-100%, she is breathing comfortaby. Patient is awake and alert, oriented 3, no altered mentation, she is in sinus mechanism, she is on 0.9 at 10 ML per hour, no other drips, she's been afebrile, vital signs have been stable. Chest x-ray has been reviewed, and it shows patchy perihilar and basilar infiltrates persistence wi thout significant change. She remains on once daily dose of Lasix, and she is in -1090 mL fluid balance over the last 24 hours. She has been tolerating oral intake, no nausea vomiting or abdominal pain. Currently patient remains on IV steroids with Solu-Medrol 40 mg every 8 hours, colchicine, vitamin C D and zinc, melatonin, and bronchodilators. Today's d-dimer is 7.58. And patient remains on Lovenox at 40 mg twice daily which is 0.5 mg/kg of body weight twice daily. Patient also continues on Zosyn for empiric antibiotic coverage. Blood cultures have shown no growth. Follow-up LDH is trending down on today's labs and is down to 1370, CRP is less than 5. On 12/06/2020 patient seen in follow-up in intensive care unit, patient remains on Airvo at 60L and Fio2 75%. Satting between 88-91%, did require BiPap support last night for a few hours, currently back on Airvo. Patient is breathing comfortably, no acute distress, no chest discomfort. No fever, or chills. Patient is currently on 0.9 NS at 10 ml/hr. patient remains on Lasix, she is in -1.8 L fluid balance over the last 24 hours, however her chest x-ray shows worsening airspace disease, and pulmonary edema. Blood pressure has been stable, today's labs have been reviewed, showing serum sodium of 135, potassium is 4.3, chloride is 97, CO2 is 24, B1 is 24, creatinine 0.64. Proalcitonin level came back negative, we can stop the Zosyn cultures are negative. No fever or chills. No nausea vomiting diarrhea. On 12/07/2020 patient seen in follow-up in intensive care unit, she remains on high flow oxygen per Airvo at 60 L, and FiO2 of 70%, and her pulse ox is 90-91%, looks fairly comfortable, she is sitting up on the edge of the bed, appears to be in no acute distress, she is getting ready to eat breakfast this morning, she has been afebrile, vital signs have been stable. her chest x-ray today showed diffuse increased lung markings more focal in the right lower lobe, patient has received increased dose of Lasix, and her chest x-ray shows better aeration compared to yesterday's exam.today's labs have been reviewed, her d-dimer is trending down, down to 5.40, white count is 10.2, hemoglobin is 11.4, sodium is 134, potassium is 3.3, chloride 96, CO2 is 23, BUN is 26 creatinine 0.64. LDH is 1300, CRP is less than 5, blood culture has shown no growth. Objective - Vital Signs Vital signs: Vital Signs Temp 98.2 F 12/07/20 04:00 Pulse 63 12/07/20 07:00 Resp 20 12/07/20 07:00 BP 109/80 12/07/20 07:00 Pulse Ox 91 L 12/07/20 08:07 Intake & Output 12/06/20 12/07/20 12/07/20 18:59 06:59 18:59 Intake Total 940 230 20 Output Total 1540 940 100 Balance -600 -710 -80 Weight 78.8 kg Intake: IV 580 230 20 KVO 120 230 20 Piperacillin-Tazobactam 3 100 .375 gm In Sodium Chloride 0.9% 100 ml @ 25 mls/hr IVPB Q8HR [facility] Rx# :[id number] Sodium Chloride 0.9% 1, 360 000 ml @ 50 mls/hr IV . Q20H [facility] Rx#:[id number] Oral 360 Output: Urine 1540 940 100 Other: Voiding Method Indwelling Catheter Indwelling Catheter - Exam GENERAL EXAM: Alert, pleasant, 60-year-old white female on Airvo at 60 L/m, and FiO2 of 70% satting 91% comfortable in no apparent distress. HEAD: Normocephalic/atraumatic. EYES: Normal reaction of pupils, equal size. Conjunctiva pink, sclera white. NOSE: Clear with pink turbinates. THROAT: No erythema or exudates. NECK: No masses, no JVD, no thyroid enlargement, no adenopathy. CHEST: No chest wall deformity. Symmetrical expansion. LUNGS: Equal air entry with diffuse crackles CVS: Regular rate and rhythm, normal S1 and S2, no gallops, no murmurs, no rubs ABDOMEN: Soft, nontender. No hepatosplenomegaly, normal bowel sounds, no guarding or rigidity. EXTREMITIES: No clubbing, no edema, no cyanosis, 2+ pulses and upper and lower extremities. MUSCULOSKELETAL: Muscle strength and tone normal. SPINE: No scoliosis or deformity SKIN: No rashes CENTRAL NERVOUS SYSTEM: Alert and oriented -3. No focal deficits, tone is normal in all 4 extremities. PSYCHIATRIC: Alert and oriented -3. Appropriate affect. Intact judgment and insight. - Labs CBC & Chem 7: 12/07/20 03:12 12/07/20 04:00 Labs: Abnormal Lab Results - Last 24 Hours (Table) 12/06/20 12/06/20 12/07/20 Range/Units 11:45 20:10 03:12 RDW 16.4 H (11.5-15.5) % Plt Count 119 L (150-450) k/uL Neutrophils # 9.7 H (1.3-7.7) k/uL Lymphocytes # 0.3 L (1.0-4.8) k/uL D-Dimer (<0.60) mg/L FEU Sodium (137-145) mmol/L Potassium (3.5-5.1) mmol/L Chloride (98-107) mmol/L Carbon Dioxide (22-30) mmol/L BUN (7-17) mg/dL Glucose (74-99) mg/dL POC Glucose (mg/dL) 115 H 108 H (75-99) mg/dL ALT (4-34) U/L Lactate Dehydrogenase (313-618) U/L Total Protein (6.3-8.2) g/dL Albumin (3.5-5.0) g/dL 12/07/20 12/07/20 12/07/20 Range/Units 03:12 04:00 06:13 RDW (11.5-15.5) % Plt Count (150-450) k/uL Neutrophils # (1.3-7.7) k/uL Lymphocytes # (1.0-4.8) k/uL D-Dimer 5.40 H (<0.60) mg/L FEU Sodium 134 L (137-145) mmol/L Potassium 3.3 L (3.5-5.1) mmol/L Chloride 96 L (98-107) mmol/L Carbon Dioxide 33 H (22-30) mmol/L BUN 26 H (7-17) mg/dL Glucose 130 H (74-99) mg/dL POC Glucose (mg/dL) 138 H (75-99) mg/dL ALT 47 H (4-34) U/L Lactate Dehydrogenase 1300 H (313-618) U/L Total Protein 5.4 L (6.3-8.2) g/dL Albumin 3.1 L (3.5-5.0) g/dL Assessment and Plan Plan: Assessment: #1. acute Covid 19 related pneumonia with bilateral pulmonary infiltrates most significant in the right upper lobe and the left lung seems to be diffusely infiltrated #2. acute severe hypoxic respiratory failure, worsening over last 24 hours, patient on FiO2 100%, and BiPAP support, the evidence of worsening inflammatory markers and worsening oxygenation. Started on Remdesivir treatment on 11/21/2020, and high-dose IV Decadron on 11/21/2020. Patient had rapid worsening of oxygenation and was transferred to the intensive care unit on 11/21/2020. Currently requiring BiPAP support with pressures of 14/5 and FiO2 100% On 11/23/2020 is on BiPAP support with FiO2 of 100%, and very much dependent on BiPAP support. On 12/04/2020 patient is on Airvo at 60 L in and FiO2 of 70% with pulse ox of 94% #3. Increased pro-calcitonin rule out possibility of bacterial infection, we'll cover the patient with azithromycin and Rocephin, we'll send urinalysis with cultures, we'll send a Legionella urine antigen and mycoplasma IgM and IgG, both mycoplasma titers were low, Legionella urine antigen was negative, blood cultures have shown no growth. #4. chronic persistent bronchial asthma with an FEV1 of 82-87% on outpatient basis maintained on Symbicort #5. steroid-induced hyperglycemia #6. hypertension #7. hypothyroidism #8. Osteoarthritis and gout #9. Peripheral neuropathy involving lower extremities #10. Peripheral vascular disease #11. Chronic normocytic anemia #12. More than [id number] smoking history patient is currently an ex-smoker hiatal hernia with reflux Plan: Continue current medical treatment, continue Lovenox, continue bronchodilators, continue with same dose of Lasix for another 24 hours, continue weaning FiO2, encourage oral intake, continue current dose IV Solu-Medrol. Encourage deep breathing and coughing and incentive spirometry use. I performed a history & physical examination of the patient and discussed their management with my nurse practitioner, Cate Madsen. I reviewed the nurse practitioner's note and agree with the documented findings and plan of care. Lung sounds are positive for diffuse crackles throughout the lung ruiz. The findings and the impression was discussed with the patient. I attest to the documentation by the nurse practitioner. Time with Patient: Greater than 30
[2020-12-07] MEDS: FAMOTIDINE 20 MG TAB PO SCH ×2 (09:07→20:37)
[2020-12-07] MEDS: FUROSEMIDE 10 MG/ML 4 ML VIAL IV SCH ×2 (09:07→20:36)
[2020-12-07] MEDS: ENOXAPARIN 40 MG/0.4 ML SYRINGE SQ SCH ×2 (09:07→20:35)
[2020-12-07] MEDS: SUCRALFATE 1 GM TAB PO SCH ×4 (09:07→20:56)
[2020-12-07] MEDS: GABAPENTIN 100 MG CAP PO SCH ×2 (09:07→12:00)
[2020-12-07] MEDS: COLCHICINE 0.6 MG EACH PO SCH ×2 (09:08→20:36)
[2020-12-07] MEDS: ASCORBIC ACID 500 MG TAB PO SCH (09:08)
[2020-12-07] MEDS: allopurinoL 300 MG TAB PO SCH (09:08)
[2020-12-07] MEDS: methylPREDNISolone SOD SUCCI 40 MG/ML 1 ML VIAL IV SCH ×2 (09:08→17:09)
[2020-12-07] MEDS: ZINC SULFATE 220 MG CAP PO SCH (09:08)
[2020-12-07 11:39] LABS: Glucose,Whole Blood 97 mg/dL (75-99)
--- NOTE | 2020-12-07 12:51 | P.PN ---
Subjective Progress Note Date: 12/07/20 COVID 19 related pneumonia and hypoxemia Acute hypoxic respiratory failure 60-year-old female came in with compensative shortness of breath found to have very low oxygen saturations patient was diagnosed with Covid 19 about 3 days ago patient had having symptoms for about a week. Patient was also company of fever chills patient has low-grade fever here. Patient was seen in [facility] subsequently transferred here patient is presently on 15 L of oxygen. Patient does have history of COPD. Patient was started on Decadron. Pulmonary was consulted. She was complaining of for cough without any significant sputum production. 11/24/2020, patient is seen for a follow-up. The patient is currently still on a BiPAP with an FiO2 of 100%; feeling slightly better; remains afebrile. The chest x-ray remains unchanged and the patient continues to have diffuse but the pulmonary infiltrates consistent with code 19 related pneumonia. Her inflammatory markers are quite abnormal. At LDH from today was 1006 and 41, and her CRP was 59. Note that the CRP level was slightly lower. The pro-calcitonin level from yesterday was 0.18. CPKs nonelevated and a triglyceride level is at 154. The patient has a d-dimer of 14.8. She remains on Lovenox at a dose of 40 mg subcu every 12 hours which is in the order of 0.5 mg per KG every 12 hours. In terms of treatment, the patient remains on Decadron 20 mg IV on the daily basis and she is on Remdesivir and she also received 2 doses of Actemra 400 mg IV. Her oral intake was noted to be quite low as the patient is unable to get herself off the BiPAP for oral intake. Based on that, the patient will be given a PICC line today and she'll be started on TPN for nutritional support to maintain her nutritional status. No fever. No chills. Hemodynamically stable. No other issues for now. Her CODE STATUS is full code. 11/25/2020 patient is seen and evaluated in room for a follow-up; patient became hypoxic again and she had to be placed back on an FiO2 of 100% with a BiPAP pressure of 14/6 cm of water. Her current respiratory rate is in the order of 22-30 breaths per minute. The patient is comfortable. She is tolerating the treatment well. Laboratory review shows d-dimer is up to 30.01. Rest of the inflammatory markers show an LDH level of 1862 and the CRP is down to 40.8. Pro-calcitonin level was at 0.18. patient has received Lovenox at a dose of 40 mg subcu every 12 hours which is in the order of 0.5 mg per KG every 12 hours. In terms of treatment, the patient remains on Decadron 20 mg IV on the daily basis they #4 and she is on Remdesivir #5 and she also received 2 doses of Actemra 400 mg IV. Meanwhile be also inserted a PICC line in the left upper extremity and the patient was started on TPN for nutritional support. No altered mentation pH is resting comfortably in bed. Is slightly higher since the patient was started on TPN and septal 187 and the will going to put this patient on sliding scale blood sugar coverage. 11/26/2020 Patient remains in ICU and remains awake and alert; currently on BiPAP; FiO2 was weaned down to 70% with stable O2 saturation; patient remains on high-dose Decadron in form of 20 mg IV daily; inflammatory markers slowly trending down including CRP of 22, LDH of 1776, d-dimer 23.4 Patient is currently on TPN for nutrition at a rate of 45 hoursalong with blood glucose monitoring every 4 hours with insulin sliding scale; remains stable on IV fluids at 50 mL per hour Patient is being followed by pulmonology service and recommended to continue with Lovenox 40 mg subcu every 12 hours, Decadron 20 mg IV daily along with completing REM treatment; patient has received 2 doses of Actemra 400 mg IV. 11/27/2020 Patient remains on BiPAP with FiO2 of around 670%. Patient has some improvement in inflammatory markers. 11/28/2020 Patient remains on BiPAP with FiO2 of around 75%. 11/29/2020 No significant improvement in her respiratory status patient remains on the same Covid 19 cocktail as as today. Inflammatory markers have come down and stabilized. 11/30/2020 Patient remains on BiPAPand change in his in her respiratory status or BiPAP settings. Patient is being dialyzed at this time as there is a concern of possible CHF as well patient remains on TPN and colchicine 12/01/2020 Patient is off BiPAP and is on airvo, patient remains on Lasix with significant improvement in her respiratory status. Chest x-ray is also showing some improvement. Patient remains on TPN which is being tapered down patient was started on a by mouth diet patient is presently on and wasn't FiO2 and 65 L of oxygen 12/02/2019 Patient was pretty status remains the same patient is able to eat today we will be enough TPN today. 12/03/2020 Patient is a off TPN tolerating oral diet very well. 12/04/2020 Patient is clinically doing well patient respiratory status and inflammatory markers are all. Remains on 65 L and 70% FiO2 12/05/2020 Continued respiratory status no significant worsening or improvement. Patient also looks clinically very well 12/06/2020 Patient respiratory status remains the same. 12/07/2020 She continues to be closely monitored in the ICU and remains on Airvo and FiO2 was decreased to 70 from 75 with a flow rate of 60 and oxygen saturation is 90% at this time. Incentive spirometer at the bedside and patient states she has been doing often. Patient continues to be severely dyspneic with exertion. Potassium on the lower side and 3.3 today and will be replaced. Will repeat a.m. labs. She is tolerating diet although not much of an appetite and patient states she has a milk protein ALLERGY and has been receiving food but is not appetizing and made with milk products. LDH trending down and is currently 1300 today. Patient is also continued on IV Lasix and IV steroids, Lovenox, culture seen, vitamin and zinc supplements. Constitutional: Denied any fatigue denied any fever. Cardio vascular: denied any chest pain, palpitations Gastrointestinal denied any nausea vomiting Pulmonary: shortness of breath with exertion Neurologic denied any new focal deficits All inpatient medications were reviewed and appropriate changes in these med ications as dictated in the interval history and assessment and plan. Objective - Vital Signs Vital signs: Vital Signs Temp 98.2 F 12/07/20 04:00 Pulse 63 12/07/20 07:00 Resp 20 12/07/20 07:00 BP 109/80 12/07/20 07:00 Pulse Ox 91 L 12/07/20 08:07 Intake & Output 12/06/20 12/07/20 12/07/20 18:59 06:59 18:59 Intake Total 940 230 20 Output Total 1540 940 100 Balance -600 -710 -80 Weight 78.8 kg Intake: IV 580 230 20 KVO 120 230 20 Piperacillin-Tazobactam 3 100 .375 gm In Sodium Chloride 0.9% 100 ml @ 25 mls/hr IVPB Q8HR [facility] Rx# :[id number] Sodium Chloride 0.9% 1, 360 000 ml @ 50 mls/hr IV . Q20H [facility] Rx#:[id number] Oral 360 Output: Urine 1540 940 100 Other: Voiding Method Indwelling Catheter Indwelling Catheter - Exam GENERAL: The patient is alert and oriented x3, not in any acute distress. Well developed, well nourished. Sitting up in the chair amparo on Airvo and slowly titrating FiO2 as tolerated HEENT: Pupils are round and equally reacting to light. EOMI. No scleral icterus. No conjunctival pallor. Normocephalic, atraumatic. No pharyngeal erythema. No thyromegaly. CARDIOVASCULAR: S1 and S2 present. No murmurs, rubs, or gallops. PULMONARY: There is some rhonchi and wheezing bilaterally ABDOMEN: Soft, nontender, nondistended, normoactive bowel sounds. No palpable organomegaly. MUSCULOSKELETAL: No joint swelling or deformity. EXTREMITIES: No cyanosis, clubbing, patient does have some pedal edema NEUROLOGICAL: Gross neurological examination did not reveal any focal deficits. SKIN: No rashes. - Labs CBC & Chem 7: 12/07/20 03:12 12/07/20 04:00 Labs: Abnormal Lab Results - Last 24 Hours (Table) 12/06/20 12/06/20 12/07/20 Range/Units 11:45 20:10 03:12 RDW 16.4 H (11.5-15.5) % Plt Count 119 L (150-450) k/uL Neutrophils # 9.7 H (1.3-7.7) k/uL Lymphocytes # 0.3 L (1.0-4.8) k/uL D-Dimer (<0.60) mg/L FEU Sodium (137-145) mmol/L Potassium (3.5-5.1) mmol/L Chloride (98-107) mmol/L Carbon Dioxide (22-30) mmol/L BUN (7-17) mg/dL Glucose (74-99) mg/dL POC Glucose (mg/dL) 115 H 108 H (75-99) mg/dL ALT (4-34) U/L Lactate Dehydrogenase (313-618) U/L Total Protein (6.3-8.2) g/dL Albumin (3.5-5.0) g/dL 12/07/20 12/07/20 12/07/20 Range/Units 03:12 04:00 06:13 RDW (11.5-15.5) % Plt Count (150-450) k/uL Neutrophils # (1.3-7.7) k/uL Lymphocytes # (1.0-4.8) k/uL D-Dimer 5.40 H (<0.60) mg/L FEU Sodium 134 L (137-145) mmol/L Potassium 3.3 L (3.5-5.1) mmol/L Chloride 96 L (98-107) mmol/L Carbon Dioxide 33 H (22-30) mmol/L BUN 26 H (7-17) mg/dL Glucose 130 H (74-99) mg/dL POC Glucose (mg/dL) 138 H (75-99) mg/dL ALT 47 H (4-34) U/L Lactate Dehydrogenase 1300 H (313-618) U/L Total Protein 5.4 L (6.3-8.2) g/dL Albumin 3.1 L (3.5-5.0) g/dL Assessment and Plan Assessment: -Acute hypoxic respiratory failure: Patient is on airvo Secondary to Covid 19 pneumonia patient is on IV Solu-Medrol, Lovenox, colchicine, vitamin C and E supplements, and zinc supplements, pulmonary following Completed remdesivir and actemra. Was started on colchicine as an anti-inflammatory, weaned off TPN and currently tolerating by mouth diet -COPD with mild acute exacerbation secondary to Covid 19. Pulmonology following the patient -Elevated blood sugars secondary to IV Solu-Medrol, she to continue on Accu- Cheks and sliding scale -Hyperlipidemia -Hypothyroidism -History of gout for which patient is on colchicine which will be continued -Peripheral edema improved now -Peripheral vascular disease -Hiatal hernia with gastroesophageal reflux disease patient is on Prilosec -GI prophylaxis -DVT prophylaxis: Subcutaneous heparin -Full code Plan: Continue to wean FiO2 as tolerated. Replace potassium per protocol and will repeat a.m. labs. Increase activity as tolerated. Continue with incentive spirometer at least 10 times every hour while awake.
[2020-12-07 20:27] LABS: Glucose,Whole Blood 118 mg/dL (75-99)
[2020-12-07] MEDS: THEOPHYLLINE 24 HOUR 300 MG CAP.ER.24H PO SCH (20:36)
[2020-12-07] MEDS: MELATONIN 3 MG TABLET PO SCH (20:36)
[2020-12-07] MEDS: MONTELUKAST 10 MG TAB PO SCH (20:37)
[2020-12-07] MEDS: PRAMIPEXOLE 0.5 MG TAB PO SCH (20:37)
[2020-12-07] MEDS: GABAPENTIN 300 MG CAP PO SCH (20:37)
[2020-12-07] MEDS: ATORVASTATIN 40 MG TAB PO SCH (20:37)
[2020-12-08] MEDS: methylPREDNISolone SOD SUCCI 40 MG/ML 1 ML VIAL IV SCH ×4 (00:19→23:36)
[2020-12-08 04:23] LABS: ALT 46 U/L (4-34); AST 24 U/L (14-36); African American GFR (CKD) >90 (>60 ml/min/1.73 sqM); Albumin 3.2 g/dL (3.5-5.0); Alkaline Phosphatase 90 U/L (38-126); Anion Gap 3 mmol/L; Blood Urea Nitrogen 27 mg/dL (7-17); C Reactive Protein <5.0 mg/L (<10.0); Calcium 9.1 mg/dL (8.4-10.2); Carbon Dioxide 36 mmol/L (22-30); Chloride 94 mmol/L (98-107); Glucose 144 mg/dL (74-99); LDH 1101 U/L (313-618); Non-African American GFR(CKD) >90 (>60 ml/min/1.73 sqM); Potassium 3.3 mmol/L (3.5-5.1); Sodium 133 mmol/L (137-145); Total Bilirubin 0.9 mg/dL (0.2-1.3); Total Protein 5.5 g/dL (6.3-8.2)
[2020-12-08 05:00] LABS: Anisocytosis Slight; Basophils % (A) 0 %; Eosinophils % (A) 0 %; HCT 36.2 % (34.0-46.0); HGB 11.7 gm/dL (11.4-16.0); Lymphocytes # (A) 0.3 k/uL (1.0-4.8); Lymphocytes % (A) 3 %; MCH 29.2 pg (25.0-35.0); MCHC 32.3 g/dL (31.0-37.0); MCV 90.5 fL (80.0-100.0); Monocytes # (A) 0.3 k/uL (0-1.0); Monocytes % (A) 3 %; Neutrophils # (A) 9.3 k/uL (1.3-7.7); RDW 16.8 % (11.5-15.5); WBC 9.9 k/uL (3.8-10.6)
[2020-12-08] MEDS: POTASSIUM CHLORIDE ER 20 MEQ TAB.ER PO SCH ×3 (05:45→23:42)
[2020-12-08] MEDS: LEVOTHYROXINE 75 MCG TAB PO SCH (05:45)
[2020-12-08 05:53] LABS: Polychromasia Present
[2020-12-08 05:56] LABS: Platelet Count 63 k/uL (150-450)
[2020-12-08 06:57] LABS: Glucose,Whole Blood 112 mg/dL (75-99)
[2020-12-08] MEDS: INSULIN ASPART (NovoLOG) 100 UNIT/ML VIAL SQ SCH ×4 (06:57→20:28)
--- NOTE | 2020-12-08 07:39 | XR ---
EXAMINATION TYPE: XR chest 1V portable DATE OF EXAM: 12/08/2020 HISTORY: Shortness of breath. COMPARISON: December 07, 2020 TECHNIQUE: Single view of the chest is submitted. FINDINGS: Demonstrated are scattered senescent parenchymal change. Patchy perihilar and basilar infiltrates persist without significant change appreciated. PICC line no ebenezer. The heart is stable. Hilar and mediastinal structures are within normal limits. Degenerative changes are seen of the dorsal spine. IMPRESSION: 1. Patchy perihilar and basilar infiltrates persist without significant change appreciated.
[2020-12-08] MEDS: SYMBICORT 160-4.5 MCG INHALER INHALATION SCH ×2 (08:03→21:21)
[2020-12-08] MEDS: ALBUTEROL HFA INHALER INHALATION SCH ×4 (08:03→21:21)
[2020-12-08] MEDS: TIOTROPIUM 2.5 MCG INHALER INHALATION SCH (08:04)
[2020-12-08] MEDS: ENOXAPARIN 40 MG/0.4 ML SYRINGE SQ SCH ×2 (08:29→20:26)
[2020-12-08] MEDS: FAMOTIDINE 20 MG TAB PO SCH ×2 (08:29→20:26)
[2020-12-08] MEDS: ZINC SULFATE 220 MG CAP PO SCH (08:29)
[2020-12-08] MEDS: SUCRALFATE 1 GM TAB PO SCH ×4 (08:29→20:30)
[2020-12-08] MEDS: ASCORBIC ACID 500 MG TAB PO SCH (08:29)
[2020-12-08] MEDS: GABAPENTIN 100 MG CAP PO SCH ×2 (08:29→14:03)
[2020-12-08] MEDS: FUROSEMIDE 10 MG/ML 4 ML VIAL IV SCH ×2 (08:30→20:26)
[2020-12-08] MEDS: COLCHICINE 0.6 MG EACH PO SCH ×2 (08:31→20:28)
[2020-12-08] MEDS: allopurinoL 300 MG TAB PO SCH (08:32)
--- NOTE | 2020-12-08 11:03 | P.PN ---
Subjective Progress Note Date: 12/08/20 Principal diagnosis: Acute hypoxic respiratory failure secondary to CoVID 19 pneumonia 60-year-old here patient hospitalized for COVID 19 related pneumonia and hypoxemia. The patient was found to have a low oxygen saturation. She was diagnosed having COVID 19 on 11/20/2020. However, her symptoms started approximately a week prior to that as the patient started having generalized weakness, fever and chills. In the hospital at [place], she was found to be hypoxic and she was placed on 15 L of oxygen by nasal cannula. She was started on Decadron and following that she was transferred to [facility] on 11/20/2020 for further evaluation. On today's evaluation the patient remains on 15 L of oxygen by nasal cannula. Laboratory markers show a LDH of 1482, her CRP is 239, her pro-calcitonin level is at 1.28, her white cell count is at 4.5 and the patient has a lymphopenia with a lymphocyte count of 0.7. The electrolytes all within normal limits. Renal function is within normal limits. Glucose slightly elevated at 235. The chest x-ray is showing bilateral pulmonary infiltrates mainly involving the left lung and or significantly in the right upper lobe area. The patient is known to have COPD/asthma. The patient is also has history of hypothyroidism, hyperlipidemia and gout. She has history of hiatal hernia.. She is on Decadron 6 mg by mouth daily. She is on no DVT prophylaxis is receiving 40 mg of Lovenox her d-dimer level is at 0.36. On 11/22/2020 patient seen in follow-up in intensive care unit. She is awake and alert, oriented 3, she is currently on BiPAP support with pressures of 14/5 and FiO2 of 100%, and her SpO2 is a 99%. Patient states she doesn't feel significantly more short of breath, however she tachypneic with a respiratory rate of 28 BPM, she has been febrile T-max of 10 1F, her pro-calcitonin came back elevated at 1.28 suggesting possibility of bacterial infection. Today we started her on Remdesivir, today's date to off treatment, her inflammatory markers are trending up, LDH is up to 1940, CRP is 143.6, d-dimer is 0.78, and is on prophylactic dose of Lovenox 40 mg daily, electrolytes and renal profile are unremarkable. O'Christiano is 9.2, hemoglobin is 11, platelet count is 322, neutrophils is 8.3, and in lymphocyte count is 0.5. Patient is on day 2 of high-dose IV steroids 20 mg daily. Patient is awake and alert, oriented 3, yesterday she reversed her CODE STATUS, from DO NOT RESUSCITATE to full code. On 11/23/2020 patient seen in follow-up in the intensive care unit, she remains on BiPAP support, has been very much dependent on it, and he desaturates rapidly even for short periods when the BiPAP mask is removed to give the patient oral medications, current BiPAP settings of 14/60 and FiO2 of 100%, her pulse ox is 93%. Awake and alert, she is oriented 3, she states her breathing is stable as long as she does not move and lays very still in bed. She is complaining of a dry cough, no chest discomfort, no palpitations. She is in sinus mechanism, bradycardic with a rate of 55 BPM, blood pressure is 116/66, not on any vasopressor support, her current IV fluids are 0.9 normal saline at a rate of 20 ML per hour. Patient's pattern has improved, T-max in last 24 hours 99.5F. Urinalysis was sent and shows no signs of infection, blood cultures will be sent today, last pro calcitonin yesterday was 1.29, repeat pro calcitonin has been sent and pending at this time, patient was empirically placed on azithromycin and Rocephin. Maintenance on high-dose IV steroids currently with Decadron 20 mg IV on the daily basis. Absent been reviewed, her d-dimer has trended up, and is at 5.13 today, her Lovenox dose will be adjusted 0.5 mg/kg of body weight twice daily, LDH is down slightly, 1670, CRP is relatively stable at 140.5. Electronic are within normal limits, patient is mildly prerenal, BUN is 30 creatinine 0.74, she also remains on oral dose of Lasix and she has had very limited oral intake. She has only been able to take one or 2 sips of oral liquids and she states things do not taste right. White blood cell count is 6.5, hemoglobin is 10.5. His chest x-ray has been reviewed and diffuse increasing groundglass opacities. I discussed the patient's CODE STATUS with he yadi, and she is agreeable to CPR, intubation, defibrillation, CODE STATUS will be changed to full code On 12/04/2020 patient seen in follow-up in the intensive care unit, she is off the BiPAP support, and currently on high flow oxygen per Airvo 60 L/m and FiO2 of 70%, with a pulse ox between 92-94%, she is breathing comfortably, denies any chest discomfort, she sitting up in a chair, she looks comfortable, she has had no fever or chills. Today's chest x-ray shows coarse infiltrates bilaterally w ith slight interval progression. Patient is tolerating oral diet. She is off the TPN. She is on 0.9 normal saline at a rate of 10 ML per hour, today's labs have been reviewed, d-dimer is improved from a few days back and is down to 6.70, patient is on Lovenox 40 mg twice a day, white blood cell count is 9.1, hemoglobin is 10.8, sodium is 134, potassium is 4.4, chloride is 96, CO2 is 34, B1 is 20, creatinine 0.64 LDH is 1660, CRP is less than 5. Patient remains on daily dose of IV Lasix, colchicine, Pepcid 20 mg twice a day, bronchodilators, IV Solu-Medrol 40 mg every 8 hours On 12/05/2020 patient is seen in follow-up in the intensive care unit, she remains on high flow oxygen per Airvo at 60 L/m and FiO2 of 75%, in the night her FiO2 have to be bumped up a little bit from a 70% because of an episode of desaturation. She also required 4 hours on BiPAP support. However this morning patient appears to be calm and comfortable, sitting up in the recliner, in her pulse ox on the Airvo at previously mentioned settings is 98-100%, she is breathing comfortaby. Patient is awake and alert, oriented 3, no altered mentation, she is in sinus mechanism, she is on 0.9 at 10 ML per hour, no other drips, she's been afebrile, vital signs have been stable. Chest x-ray has been reviewed, and it shows patchy perihilar and basilar infiltrates persistence without significant change. She remains on once daily dose of Lasix, and she is in -1090 mL fluid balance over the last 24 hours. She has been tolerating oral intake, no nausea vomiting or abdominal pain. Currently patient remains on IV steroids with Solu-Medrol 40 mg every 8 hours, colchicine, vitamin C D and zinc, melatonin, and bronchodilators. Today's d-dimer is 7.58. And patient remains on Lovenox at 40 mg twice daily which is 0.5 mg/kg of body weight twice daily. Patient also continues on Zosyn for empiric antibiotic coverage. Blood cultures have shown no growth. Follow-up LDH is trending down on today's labs and is down to 1370, CRP is less than 5. On 12/06/2020 patient seen in follow-up in intensive care unit, patient remains on Airvo at 60L and Fio2 75%. Satting between 88-91%, did require BiPap support last night for a few hours, currently back on Airvo. Patient is breathing comfortably, no acute distress, no chest discomfort. No fever, or chills. Patient is currently on 0.9 NS at 10 ml/hr. patient remains on Lasix, she is in -1.8 L fluid balance over the last 24 hours, however her chest x-ray shows worsening airspace disease, and pulmonary edema. Blood pressure has been stable, today's labs have been reviewed, showing serum sodium of 135, potassium is 4.3, chloride is 97, CO2 is 24, B1 is 24, creatinine 0.64. Proalcitonin level came back negative, we can stop the Zosyn cultures are negative. No fever or chills. No nausea vomiting diarrhea. On 12/07/2020 patient seen in follow-up in intensive care unit, she remains on high flow oxygen per Airvo at 60 L, and FiO2 of 70%, and her pulse ox is 90-91%, looks fairly comfortable, she is sitting up on the edge of the bed, appears to be in no acute distress, she is getting ready to eat breakfast this morning, she has been afebrile, vital signs have been stable. her chest x-ray today showed diffuse increased lung markings more focal in the right lower lobe, patient has received increased dose of Lasix, and her chest x-ray shows better aeration compared to yesterday's exam.today's labs have been reviewed, her d-dimer is trending down, down to 5.40, white count is 10.2, hemoglobin is 11.4, sodium is 134, potassium is 3.3, chloride 96, CO2 is 23, BUN is 26 creatinine 0.64. LDH is 1300, CRP is less than 5, blood culture has shown no growth. The patient is seen today 12/08/2020 in follow-up in the intensive care unit. She is awake and alert. She is still requiring AirVo high flow oxygen at 60 L/m and 70% FiO2 to maintain O2 saturations in the 90s. No current IV fluids. She is receiving her second unit of convalescent plasma. Chest x-ray continues to show bilateral patchy perihilar and basilar infiltrates. Not much improvement. White count 9.9. Hemoglobin 11.7. Platelet count 63,000. D-dimer 3.60. Sodium 133. Potassium 3.3. Bicarb 36. Creatinine 0.63. AST 24. ALT 46. LDH 1101. C-reactive protein less than 5.0. She remains on IV Solu-Medrol, bronchodilators, Lovenox, colchicine, Pepcid, vitamin supplements. She's also been diuresed with Lasix 40 mg IV every 12 hours. Objective - Vital Signs Vital signs: Vital Signs Temp 97.9 F 12/08/20 08:15 Pulse 87 12/08/20 09:00 Resp 29 H 12/08/20 09:00 BP 117/76 12/08/20 09:00 Pulse Ox 92 L 12/08/20 09:00 Intake & Output 12/07/20 12/08/20 12/08/20 18:59 06:59 18:59 Intake Total 1300 900 250 Output Total 1195 1275 475 Balance 105 -375 -225 Weight 78.8 kg 76.4 kg Intake: IV 80 KVO 80 Oral 1220 900 250 Blood Product 0 Ffp Pher Conval Covid19 0 Acda 3 Unit [id number] Output: Urine 1195 1275 475 Other: Voiding Method Indwelling Catheter Indwelling Catheter Indwelling Catheter - Exam GENERAL EXAM: Alert, pleasant, 60-year-old female patient on Airvo at 60 L/m, and FiO2 of 70% with O2 saturation 88-92%, comfortable in no apparent distress. HEAD: Normocephalic/atraumatic. EYES: Normal reaction of pupils, equal size. Conjunctiva pink, sclera white. NOSE: Clear with pink turbinates. THROAT: No erythema or exudates. NECK: No masses, no JVD, no thyroid enlargement, no adenopathy. CHEST: No chest wall deformity. Symmetrical expansion. LUNGS: Equal air entry with diffuse scattered ronchi, crackles in the bases CVS: Regular rate and rhythm, normal S1 and S2, no gallops, no murmurs, no rubs ABDOMEN: Soft, nontender. No hepatosplenomegaly, normal bowel sounds, no guarding or rigidity. EXTREMITIES: No clubbing, no edema, no cyanosis, 2+ pulses and upper and lower extremities. MUSCULOSKELETAL: Muscle strength and tone normal. SPINE: No scoliosis or deformity SKIN: No rashes CENTRAL NERVOUS SYSTEM: Alert and oriented -3. No focal deficits, tone is normal in all 4 extremities. PSYCHIATRIC: Alert and oriented -3. Appropriate affect. Intact judgment and insight. - Labs CBC & Chem 7: 12/08/20 03:56 12/08/20 03:56 Labs: Abnormal Lab Results - Last 24 Hours (Table) 12/07/20 12/08/20 12/08/20 Range/Units 20:26 03:56 03:56 RDW 16.8 H (11.5-15.5) % Plt Count 63 L (150-450) k/uL Neutrophils # 9.3 H (1.3-7.7) k/uL Lymphocytes # 0.3 L (1.0-4.8) k/uL D-Dimer 3.60 H (<0.60) mg/L FEU Sodium (137-145) mmol/L Potassium (3.5-5.1) mmol/L Chloride (98-107) mmol/L Carbon Dioxide (22-30) mmol/L BUN (7-17) mg/dL Glucose (74-99) mg/dL POC Glucose (mg/dL) 118 H (75-99) mg/dL ALT (4-34) U/L Lactate Dehydrogenase (313-618) U/L Total Protein (6.3-8.2) g/dL Albumin (3.5-5.0) g/dL 12/08/20 12/08/20 Range/Units 03:56 06:55 RDW (11.5-15.5) % Plt Count (150-450) k/uL Neutrophils # (1.3-7.7) k/uL Lymphocytes # (1.0-4.8) k/uL D-Dimer (<0.60) mg/L FEU Sodium 133 L (137-145) mmol/L Potassium 3.3 L (3.5-5.1) mmol/L Chloride 94 L (98-107) mmol/L Carbon Dioxide 36 H (22-30) mmol/L BUN 27 H (7-17) mg/dL Glucose 144 H (74-99) mg/dL POC Glucose (mg/dL) 112 H (75-99) mg/dL ALT 46 H (4-34) U/L Lactate Dehydrogenase 1101 H (313-618) U/L Total Protein 5.5 L (6.3-8.2) g/dL Albumin 3.2 L (3.5-5.0) g/dL Assessment and Plan Assessment: 1 Acute Covid 19 related pneumonia with bilateral pulmonary infiltrates most significant in the right upper lobe and the left lung seems to be diffusely infiltrated 2 Acute severe hypoxic respiratory failure, worsening over last 24 hours, patient on FiO2 100%, and BiPAP support, the evidence of worsening inflammatory markers and worsening oxygenation. Started on Remdesivir treatment on 11/21/2020, and high-dose IV Decadron on 11/21/2020. Patient had rapid worsening of oxygenation and was transferred to the intensive care unit on 11/21/2020. Currently requiring BiPAP support with pressures of 14/5 and FiO2 100% 3 Increased pro-calcitonin rule out possibility of bacterial infection, we'll cover the patient with azithromycin and Rocephin, we'll send urinalysis with cultures, we'll send a Legionella urine antigen and mycoplasma IgM and IgG, both mycoplasma titers were low, Legionella urine antigen was negative, blood cultures have shown no growth. 4 Chronic persistent bronchial asthma with an FEV1 of 82-87% on outpatient basis maintained on Symbicort 5 Steroid-induced hyperglycemia 6 Hypertension 7 Hypothyroidism 8 Osteoarthritis and gout 9 Peripheral neuropathy involving lower extremities 10 Peripheral vascular disease 11 Chronic normocytic anemia 12 More than [id number] smoking history patient is currently an ex-smoker 13 Hiatal hernia with reflux Plan: The patient was seen and evaluated by Dr. Abad Chest x-ray and labs reviewed Give second unit of convalescent plasma if available Continue the current treatment plan Titrate down the FiO2 as tolerated Continue incentive spirometry Increase activity as tolerated We will continue to follow and make further recommendations based on her clinical status I, the cosigning physician, performed a history & physical examination of the patient. Lungs sounds with bilateral scattered rhonchi, crackles in the bases. Maintaining good O2 saturations in the 90s on 70% FiO2 via the AirVo. I discussed the assessment and plan of care with my nurse practitioner, Dang Guillen. I attest to the above note as dictated by her.
[2020-12-08 11:57] LABS: Glucose,Whole Blood 225 mg/dL (75-99)
[2020-12-08 14:08] LABS: Glucose,Whole Blood 191 mg/dL (75-99)
[2020-12-08] MEDS: NYSTATIN 100,000 UNIT/ML SUSP 500,000 UNIT/5 ML CUP PO SCH ×3 (14:56→20:28)
--- NOTE | 2020-12-08 15:46 | P.PN ---
Subjective Progress Note Date: 12/08/20 Principal diagnosis: COVID 19 related pneumonia and hypoxemia Acute hypoxic respiratory failure 60-year-old female came in with compensative shortness of breath found to have very low oxygen saturations patient was diagnosed with Covid 19 about 3 days ago patient had having symptoms for about a week. Patient was also company of fever chills patient has low-grade fever here. Patient was seen in [facility] subsequently transferred here patient is presently on 15 L of oxygen. Patient does have history of COPD. Patient was started on Decadron. Pulmonary was consulted. She was complaining of for cough without any significant sputum production. 11/24/2020, patient is seen for a follow-up. The patient is currently still on a BiPAP with an FiO2 of 100%; feeling slightly better; remains afebrile. The chest x-ray remains unchanged and the patient continues to have diffuse but the pulmonary infiltrates consistent with code 19 related pneumonia. Her inflammatory markers are quite abnormal. At LDH from today was 1006 and 41, and her CRP was 59. Note that the CRP level was slightly lower. The pro-calcitonin level from yesterday was 0.18. CPKs nonelevated and a triglyceride level is at 154. The patient has a d-dimer of 14.8. She remains on Lovenox at a dose of 40 mg subcu every 12 hours which is in the order of 0.5 mg per KG every 12 hours. In terms of treatment, the patient remains on Decadron 20 mg IV on the daily basis and she is on Remdesivir and she also received 2 doses of Actemra 400 mg IV. Her oral intake was noted to be quite low as the patient is unable to get herself off the BiPAP for oral intake. Based on that, the patient will be given a PICC line today and she'll be started on TPN for nutritional support to maintain her nutritional status. No fever. No chills. Hemodynamically stable. No other issues for now. Her CODE STATUS is full code. 11/25/2020 patient is seen and evaluated in room for a follow-up; patient became hypoxic again and she had to be placed back on an FiO2 of 100% with a BiPAP pressure of 14/6 cm of water. Her current respiratory rate is in the order of 22-30 breaths per minute. The patient is comfortable. She is tolerating the treatment well. Laboratory review shows d-dimer is up to 30.01. Rest of the inflammatory markers show an LDH level of 1862 and the CRP is down to 40.8. Pro-calcitonin level was at 0.18. patient has received Lovenox at a dose of 40 mg subcu every 12 hours which is in the order of 0.5 mg per KG every 12 hours. In terms of treatment, the patient remains on Decadron 20 mg IV on the daily basis they #4 and she is on Remdesivir #5 and she also received 2 doses of Actemra 400 mg IV. Meanwhile be also inserted a PICC line in the left upper extremity and the patient was started on TPN for nutritional support. No altered mentation pH is resting comfortably in bed. Is slightly higher since the patient was started on TPN and septal 187 and the will going to put this patient on sliding scale blood sugar coverage. 11/26/2020 Patient remains in ICU and remains awake and alert; currently on BiPAP; FiO2 was weaned down to 70% with stable O2 saturation; patient remains on high-dose Decadron in form of 20 mg IV daily; inflammatory markers slowly trending down including CRP of 22, LDH of 1776, d-dimer 23.4 Patient is currently on TPN for nutrition at a rate of 45 hoursalong with blood glucose monitoring every 4 hours with insulin sliding scale; remains stable on IV fluids at 50 mL per hour Patient is being followed by pulmonology service and recommended to continue with Lovenox 40 mg subcu every 12 hours, Decadron 20 mg IV daily along with completing REM treatment; patient has received 2 doses of Actemra 400 mg IV 12/08/2020 patient is seen in follow-up in the intensive care unit. She is awake and alert. She is still requiring AirVo high flow oxygen at 60 L/m and 70% FiO2 to maintain O2 saturations in the 90s. No current IV fluids. She is receiving her second unit of convalescent plasma. Chest x-ray continues to show bilateral patchy perihilar and basilar infiltrates. Not much improvement. White count 9.9. Hemoglobin 11.7. Platelet count 63,000. D-dimer 3.60. Sodium 133. Potassium 3.3. Bicarb 36. Creatinine 0.63. AST 24. ALT 46. LDH 1101. C- reactive protein less than 5.0. She remains on IV Solu-Medrol, bronchodilators, Lovenox, colchicine, Pepcid, vitamin supplements. She's also been diuresed with Lasix 40 mg IV every 12 hours. plan is to continue the treatment as indicated above; titrate down FiO2 as tolerated; continue with incentive spirometry Objective - Vital Signs Vital signs: Vital Signs Temp 98 F 12/08/20 08:56 Pulse 87 12/08/20 09:00 Resp 29 H 12/08/20 09:00 BP 117/76 12/08/20 09:00 Pulse Ox 92 L 12/08/20 09:00 Intake & Output 12/07/20 12/08/20 12/08/20 18:59 06:59 18:59 Intake Total 1300 900 250 Output Total 1195 1275 475 Balance 105 -375 -225 Weight 78.8 kg 76.4 kg Intake: IV 80 KVO 80 Oral 1220 900 250 Blood Product 0 Ffp Pher Conval Covid19 0 Acda 3 Unit [id number] Output: Urine 1195 1275 475 Other: Voiding Method Indwelling Catheter Indwelling Catheter Indwelling Catheter - Exam GENERAL: The patient is alert and oriented x3, not in any acute distress. Well developed, well nourished. HEENT: Pupils are round and equally reacting to light. EOMI. No scleral icterus. No conjunctival pallor. Normocephalic, atraumatic. No pharyngeal erythema. No thyromegaly. CARDIOVASCULAR: S1 and S2 present. No murmurs, rubs, or gallops. PULMONARY: Diffuse bilateral rhonchi without any significant wheezing fairly good air entry into bilateral lung ruiz ABDOMEN: Soft, nontender, nondistended, normoactive bowel sounds. No palpable organomegaly. MUSCULOSKELETAL: No joint swelling or deformity. EXTREMITIES: No cyanosis, clubbing, patient does have some pedal edema NEUROLOGICAL: Gross neurological examination did not reveal any focal deficits. - Labs CBC & Chem 7: 12/08/20 03:56 12/08/20 10:00 Labs: Abnormal Lab Results - Last 24 Hours (Table) 12/07/20 12/08/20 12/08/20 Range/Units 20:26 03:56 03:56 RDW 16.8 H (11.5-15.5) % Plt Count 63 L (150-450) k/uL Neutrophils # 9.3 H (1.3-7.7) k/uL Lymphocytes # 0.3 L (1.0-4.8) k/uL D-Dimer 3.60 H (<0.60) mg/L FEU Sodium (137-145) mmol/L Potassium (3.5-5.1) mmol/L Chloride (98-107) mmol/L Carbon Dioxide (22-30) mmol/L BUN (7-17) mg/dL Glucose (74-99) mg/dL POC Glucose (mg/dL) 118 H (75-99) mg/dL ALT (4-34) U/L Lactate Dehydrogenase (313-618) U/L Total Protein (6.3-8.2) g/dL Albumin (3.5-5.0) g/dL 12/08/20 12/08/20 Range/Units 03:56 06:55 RDW (11.5-15.5) % Plt Count (150-450) k/uL Neutrophils # (1.3-7.7) k/uL Lymphocytes # (1.0-4.8) k/uL D-Dimer (<0.60) mg/L FEU Sodium 133 L (137-145) mmol/L Potassium 3.3 L (3.5-5.1) mmol/L Chloride 94 L (98-107) mmol/L Carbon Dioxide 36 H (22-30) mmol/L BUN 27 H (7-17) mg/dL Glucose 144 H (74-99) mg/dL POC Glucose (mg/dL) 112 H (75-99) mg/dL ALT 46 H (4-34) U/L Lactate Dehydrogenase 1101 H (313-618) U/L Total Protein 5.5 L (6.3-8.2) g/dL Albumin 3.2 L (3.5-5.0) g/dL Assessment and Plan Assessment: -Acute hypoxic respiratory failure: Requiring BiPAP.. Secondary to Covid 19 pneumonia patient was started on Decadron started on the GI prophylaxis as well as Lovenox for DVT prophylaxis. Started on remdesivir. -COPD with mild acute exacerbation secondary to Covid 19. Pulmonology was consulted -Hyperlipidemia -Hypothyroidism -History of gout for which she'll patient is on colchicine which will be continued -Peripheral edema: Due to probably chronic venous stasis and patient will be resumed on Lasix oral. -Hiatal hernia with gastroesophageal reflux disease patient was resumed on Prilosec CODE STATUS; full code
[2020-12-08 16:50] LABS: Glucose,Whole Blood 56 mg/dL (75-99)
[2020-12-08 16:52] LABS: Glucose,Whole Blood 60 mg/dL (75-99)
[2020-12-08 17:12] LABS: Glucose,Whole Blood 80 mg/dL (75-99)
[2020-12-08 20:21] LABS: Glucose,Whole Blood 132 mg/dL (75-99)
[2020-12-08] MEDS: GABAPENTIN 300 MG CAP PO SCH (20:26)
[2020-12-08] MEDS: MELATONIN 3 MG TABLET PO SCH (20:26)
[2020-12-08] MEDS: ATORVASTATIN 40 MG TAB PO SCH (20:26)
[2020-12-08] MEDS: MONTELUKAST 10 MG TAB PO SCH (20:26)
[2020-12-08] MEDS: THEOPHYLLINE 24 HOUR 300 MG CAP.ER.24H PO SCH (20:27)
[2020-12-08] MEDS: PRAMIPEXOLE 0.5 MG TAB PO SCH (20:28)
[2020-12-09] MEDS: POTASSIUM CHLORIDE ER 20 MEQ TAB.ER PO SCH (00:35)
[2020-12-09 04:36] LABS: Anisocytosis Slight; Basophils % (A) 0 %; Eosinophils % (A) 0 %; HGB 11.7 gm/dL (11.4-16.0); Lymphocytes # (A) 0.3 k/uL (1.0-4.8); Lymphocytes % (A) 2 %; MCH 28.3 pg (25.0-35.0); MCHC 31.6 g/dL (31.0-37.0); MCV 89.4 fL (80.0-100.0); Mean Platelet Volume 9.1; Monocytes # (A) 0.4 k/uL (0-1.0); Monocytes % (A) 4 %; Neutrophils % (A) 93 %; RBC 4.14 m/uL (3.80-5.40); RDW 16.7 % (11.5-15.5); WBC 10.7 k/uL (3.8-10.6)
[2020-12-09 04:47] LABS: Platelet Count 35 k/uL (150-450)
[2020-12-09 04:51] LABS: ALT 42 U/L (4-34); AST 24 U/L (14-36); African American GFR (CKD) >90 (>60 ml/min/1.73 sqM); Albumin 3.5 g/dL (3.5-5.0); Alkaline Phosphatase 86 U/L (38-126); Anion Gap 5 mmol/L; Blood Urea Nitrogen 27 mg/dL (7-17); C Reactive Protein <5.0 mg/L (<10.0); Calcium 9.2 mg/dL (8.4-10.2); Carbon Dioxide 32 mmol/L (22-30); Chloride 95 mmol/L (98-107); Glucose 143 mg/dL (74-99); LDH 1080 U/L (313-618); Non-African American GFR(CKD) >90 (>60 ml/min/1.73 sqM); Potassium 3.9 mmol/L (3.5-5.1); Sodium 132 mmol/L (137-145); Total Bilirubin 0.9 mg/dL (0.2-1.3); Total Protein 5.8 g/dL (6.3-8.2)
[2020-12-09] MEDS ORDERED: POTASSIUM CHLORIDE ER 20 MEQ TAB.ER PO SCH (06:00)
[2020-12-09] MEDS: LEVOTHYROXINE 75 MCG TAB PO SCH (06:24)
[2020-12-09 06:30] LABS: Glucose,Whole Blood 130 mg/dL (75-99)
[2020-12-09] MEDS: INSULIN ASPART (NovoLOG) 100 UNIT/ML VIAL SQ SCH ×4 (06:39→20:48)
--- NOTE | 2020-12-09 07:30 | XR ---
Perihilar and basilar infiltrates persist unchanged. EXAMINATION TYPE: XR chest 1V DATE OF EXAM: 12/09/2020 HISTORY: Shortness of breath. COMPARISON: 12/08/2020 TECHNIQUE: Single view of the chest is submitted. FINDINGS: Demonstrated are scattered senescent parenchymal change. Mixed interstitial and alveolar infiltrates throughout both lung ruiz greatest at the right lung ba se persist unchanged. The heart is stable. Hilar and mediastinal structures are within normal limits. Degenerative changes are seen of the dorsal spine. IMPRESSION: 1. Mixed interstitial and alveolar infiltrates throughout both lung ruiz greatest at the right amarilis g base persist unchanged
[2020-12-09] MEDS: ALBUTEROL HFA INHALER INHALATION SCH ×4 (08:32→19:44)
[2020-12-09] MEDS: SYMBICORT 160-4.5 MCG INHALER INHALATION SCH ×2 (08:32→19:44)
[2020-12-09] MEDS: TIOTROPIUM 2.5 MCG INHALER INHALATION SCH (08:32)
[2020-12-09] MEDS: FUROSEMIDE 10 MG/ML 4 ML VIAL IV SCH ×2 (10:09→20:49)
[2020-12-09] MEDS: ZINC SULFATE 220 MG CAP PO SCH (10:10)
[2020-12-09] MEDS: GABAPENTIN 100 MG CAP PO SCH ×2 (10:10→12:40)
[2020-12-09] MEDS: methylPREDNISolone SOD SUCCI 40 MG/ML 1 ML VIAL IV SCH ×3 (10:10→23:10)
[2020-12-09] MEDS: NYSTATIN 100,000 UNIT/ML SUSP 500,000 UNIT/5 ML CUP PO SCH ×4 (10:10→21:21)
[2020-12-09] MEDS: allopurinoL 300 MG TAB PO SCH (10:11)
[2020-12-09] MEDS: FAMOTIDINE 20 MG TAB PO SCH ×2 (10:11→20:49)
[2020-12-09] MEDS: ASCORBIC ACID 500 MG TAB PO SCH (10:11)
[2020-12-09] MEDS: SUCRALFATE 1 GM TAB PO SCH ×4 (10:11→20:49)
[2020-12-09] MEDS: COLCHICINE 0.6 MG EACH PO SCH ×2 (10:14→20:49)
--- NOTE | 2020-12-09 10:47 | P.PN ---
Subjective Progress Note Date: 12/09/20 Principal diagnosis: Acute hypoxic respiratory failure secondary to CoVID 19 pneumonia 60-year-old here patient hospitalized for COVID 19 related pneumonia and hypoxemia. The patient was found to have a low oxygen saturation. She was diagnosed having COVID 19 on 11/20/2020. However, her symptoms started approximately a week prior to that as the patient started having generalized weakness, fever and chills. In the hospital at [place], she was found to be hypoxic and she was placed on 15 L of oxygen by nasal cannula. She was started on Decadron and following that she was transferred to [facility] on 11/20/2020 for further evaluation. On today's evaluation the patient remains on 15 L of oxygen by nasal cannula. Laboratory markers show a LDH of 1482, her CRP is 239, her pro-calcitonin level is at 1.28, her white cell count is at 4.5 and the patient has a lymphopenia with a lymphocyte count of 0.7. The electrolytes all within normal limits. Renal function is within normal limits. Glucose slightly elevated at 235. The chest x-ray is showing bilateral pulmonary infiltrates mainly involving the left lung and or significantly in the right upper lobe area. The patient is known to have COPD/asthma. The patient is also has history of hypothyroidism, hyperlipidemia and gout. She has history of hiatal hernia.. She is on Decadron 6 mg by mouth daily. She is on no DVT prophylaxis is receiving 40 mg of Lovenox her d-dimer level is at 0.36. On 11/22/2020 patient seen in follow-up in intensive care unit. She is awake and alert, oriented 3, she is currently on BiPAP support with pressures of 14/5 and FiO2 of 100%, and her SpO2 is a 99%. Patient states she doesn't feel significantly more short of breath, however she tachypneic with a respiratory rate of 28 BPM, she has been febrile T-max of 10 1F, her pro-calcitonin came back elevated at 1.28 suggesting possibility of bacterial infection. Today we started her on Remdesivir, today's date to off treatment, her inflammatory markers are trending up, LDH is up to 1940, CRP is 143.6, d-dimer is 0.78, and is on prophylactic dose of Lovenox 40 mg daily, electrolytes and renal profile are unremarkable. O'Christiano is 9.2, hemoglobin is 11, platelet count is 322, neutrophils is 8.3, and in lymphocyte count is 0.5. Patient is on day 2 of high-dose IV steroids 20 mg daily. Patient is awake and alert, oriented 3, yesterday she reversed her CODE STATUS, from DO NOT RESUSCITATE to full code. On 11/23/2020 patient seen in follow-up in the intensive care unit, she remains on BiPAP support, has been very much dependent on it, and he desaturates rapidly even for short periods when the BiPAP mask is removed to give the patient oral medications, current BiPAP settings of 14/60 and FiO2 of 100%, her pulse ox is 93%. Awake and alert, she is oriented 3, she states her breathing is stable as long as she does not move and lays very still in bed. She is complaining of a dry cough, no chest discomfort, no palpitations. She is in sinus mechanism, bradycardic with a rate of 55 BPM, blood pressure is 116/66, not on any vasopressor support, her current IV fluids are 0.9 normal saline at a rate of 20 ML per hour. Patient's pattern has improved, T-max in last 24 hours 99.5F. Urinalysis was sent and shows no signs of infection, blood cultures will be sent today, last pro calcitonin yesterday was 1.29, repeat pro calcitonin has been sent and pending at this time, patient was empirically placed on azithromycin and Rocephin. Maintenance on high-dose IV steroids currently with Decadron 20 mg IV on the daily basis. Absent been reviewed, her d-dimer has trended up, and is at 5.13 today, her Lovenox dose will be adjusted 0.5 mg/kg of body weight twice daily, LDH is down slightly, 1670, CRP is relatively stable at 140.5. Electronic are within normal limits, patient is mildly prerenal, BUN is 30 creatinine 0.74, she also remains on oral dose of Lasix and she has had very limited oral intake. She has only been able to take one or 2 sips of oral liquids and she states things do not taste right. White blood cell count is 6.5, hemoglobin is 10.5. His chest x-ray has been reviewed and diffuse increasing groundglass opacities. I discussed the patient's CODE STATUS with he yadi, and she is agreeable to CPR, intubation, defibrillation, CODE STATUS will be changed to full code On 12/04/2020 patient seen in follow-up in the intensive care unit, she is off the BiPAP support, and currently on high flow oxygen per Airvo 60 L/m and FiO2 of 70%, with a pulse ox between 92-94%, she is breathing comfortably, denies any chest discomfort, she sitting up in a chair, she looks comfortable, she has had no fever or chills. Today's chest x-ray shows coarse infiltrates bilaterally w ith slight interval progression. Patient is tolerating oral diet. She is off the TPN. She is on 0.9 normal saline at a rate of 10 ML per hour, today's labs have been reviewed, d-dimer is improved from a few days back and is down to 6.70, patient is on Lovenox 40 mg twice a day, white blood cell count is 9.1, hemoglobin is 10.8, sodium is 134, potassium is 4.4, chloride is 96, CO2 is 34, B1 is 20, creatinine 0.64 LDH is 1660, CRP is less than 5. Patient remains on daily dose of IV Lasix, colchicine, Pepcid 20 mg twice a day, bronchodilators, IV Solu-Medrol 40 mg every 8 hours On 12/05/2020 patient is seen in follow-up in the intensive care unit, she remains on high flow oxygen per Airvo at 60 L/m and FiO2 of 75%, in the night her FiO2 have to be bumped up a little bit from a 70% because of an episode of desaturation. She also required 4 hours on BiPAP support. However this morning patient appears to be calm and comfortable, sitting up in the recliner, in her pulse ox on the Airvo at previously mentioned settings is 98-100%, she is breathing comfortaby. Patient is awake and alert, oriented 3, no altered mentation, she is in sinus mechanism, she is on 0.9 at 10 ML per hour, no other drips, she's been afebrile, vital signs have been stable. Chest x-ray has been reviewed, and it shows patchy perihilar and basilar infiltrates persistence without significant change. She remains on once daily dose of Lasix, and she is in -1090 mL fluid balance over the last 24 hours. She has been tolerating oral intake, no nausea vomiting or abdominal pain. Currently patient remains on IV steroids with Solu-Medrol 40 mg every 8 hours, colchicine, vitamin C D and zinc, melatonin, and bronchodilators. Today's d-dimer is 7.58. And patient remains on Lovenox at 40 mg twice daily which is 0.5 mg/kg of body weight twice daily. Patient also continues on Zosyn for empiric antibiotic coverage. Blood cultures have shown no growth. Follow-up LDH is trending down on today's labs and is down to 1370, CRP is less than 5. On 12/06/2020 patient seen in follow-up in intensive care unit, patient remains on Airvo at 60L and Fio2 75%. Satting between 88-91%, did require BiPap support last night for a few hours, currently back on Airvo. Patient is breathing comfortably, no acute distress, no chest discomfort. No fever, or chills. Patient is currently on 0.9 NS at 10 ml/hr. patient remains on Lasix, she is in -1.8 L fluid balance over the last 24 hours, however her chest x-ray shows worsening airspace disease, and pulmonary edema. Blood pressure has been stable, today's labs have been reviewed, showing serum sodium of 135, potassium is 4.3, chloride is 97, CO2 is 24, B1 is 24, creatinine 0.64. Proalcitonin level came back negative, we can stop the Zosyn cultures are negative. No fever or chills. No nausea vomiting diarrhea. On 12/07/2020 patient seen in follow-up in intensive care unit, she remains on high flow oxygen per Airvo at 60 L, and FiO2 of 70%, and her pulse ox is 90-91%, looks fairly comfortable, she is sitting up on the edge of the bed, appears to be in no acute distress, she is getting ready to eat breakfast this morning, she has been afebrile, vital signs have been stable. her chest x-ray today showed diffuse increased lung markings more focal in the right lower lobe, patient has received increased dose of Lasix, and her chest x-ray shows better aeration compared to yesterday's exam.today's labs have been reviewed, her d-dimer is trending down, down to 5.40, white count is 10.2, hemoglobin is 11.4, sodium is 134, potassium is 3.3, chloride 96, CO2 is 23, BUN is 26 creatinine 0.64. LDH is 1300, CRP is less than 5, blood culture has shown no growth. The patient is seen today 12/08/2020 in follow-up in the intensive care unit. She is awake and alert. She is still requiring AirVo high flow oxygen at 60 L/m and 70% FiO2 to maintain O2 saturations in the 90s. No current IV fluids. She is receiving her second unit of convalescent plasma. Chest x-ray continues to show bilateral patchy perihilar and basilar infiltrates. Not much improvement. White count 9.9. Hemoglobin 11.7. Platelet count 63,000. D-dimer 3.60. Sodium 133. Potassium 3.3. Bicarb 36. Creatinine 0.63. AST 24. ALT 46. LDH 1101. C-reactive protein less than 5.0. She remains on IV Solu-Medrol, bronchodilators, Lovenox, colchicine, Pepcid, vitamin supplements. She's also been diuresed with Lasix 40 mg IV every 12 hours. The patient is seen today 12/09/2020 in follow-up in the intensive care unit. She is currently sitting up in a chair at the bedside. Awake and alert in no acute distress. Continues to require AirVo high flow oxygen at 60 L/m at 66% FiO2. She is able to tolerate a bit more activity without significant desaturations. The amount of time that it takes for her to recover is getting less. Improving in that regard. Chest x-ray still revealing bilateral scattered infiltrates. Currently no IV fluids running. Appetite is improving. White count 10.7. Hemoglobin 11.7. Platelet count dropped to 35,000. Lymphocytes 0.3. D-dimer 3.3. Sodium 132. Potassium 3.9. Creatinine 0.63. Bicarb 32. LDH 1080. C-reactive protein less than 5. She remains on IV Solu- Medrol, bronchodilators, Lovenox, colchicine, Pepcid, vitamin supplements. Diuresed with Lasix 40 mg IV every 12 hours. She remains a negative balance. Objective - Vital Signs Vital signs: Vital Signs Temp 97.8 F 12/09/20 04:00 Pulse 74 12/09/20 07:00 Resp 27 H 12/09/20 07:00 BP 122/71 12/09/20 07:00 Pulse Ox 94 L 12/09/20 07:00 Intake & Output 12/08/20 12/09/20 12/09/20 18:59 06:59 18:59 Intake Total 1157 400 Output Total 2545 1450 75 Balance -1388 -1450 325 Weight 74.1 kg Intake: Oral 950 400 Blood Product 207 Ffp Pher Conval Covid19 207 Acda 3 Unit [id number] Output: Urine 2545 1450 75 Other: Voiding Method Indwelling Catheter Indwelling Catheter - Exam GENERAL EXAM: Alert, pleasant, 60-year-old female patient on Airvo at 60 L/m, and FiO2 of 66% with O2 saturation 88-90%, comfortable in no apparent distress. HEAD: Normocephalic/atraumatic. EYES: Normal reaction of pupils, equal size. Conjunctiva pink, sclera white. NOSE: Clear with pink turbinates. THROAT: No erythema or exudates. NECK: No masses, no JVD, no thyroid enlargement, no adenopathy. CHEST: No chest wall deformity. Symmetrical expansion. LUNGS: Equal air entry with diffuse scattered ronchi, crackles in the bases CVS: Regular rate and rhythm, normal S1 and S2, no gallops, no murmurs, no rubs ABDOMEN: Soft, nontender. No hepatosplenomegaly, normal bowel sounds, no guardi ng or rigidity. EXTREMITIES: No clubbing, no edema, no cyanosis, 2+ pulses and upper and lower extremities. MUSCULOSKELETAL: Muscle strength and tone normal. SPINE: No scoliosis or deformity SKIN: No rashes CENTRAL NERVOUS SYSTEM: Alert and oriented -3. No focal deficits, tone is normal in all 4 extremities. PSYCHIATRIC: Alert and oriented -3. Appropriate affect. Intact judgment and insight. - Labs CBC & Chem 7: 12/09/20 04:10 12/09/20 04:10 Labs: Abnormal Lab Results - Last 24 Hours (Table) 12/08/20 12/08/20 12/08/20 Range/Units 11:56 14:07 16:48 WBC (3.8-10.6) k/uL RDW (11.5-15.5) % Plt Count (150-450) k/uL Neutrophils # (1.3-7.7) k/uL Lymphocytes # (1.0-4.8) k/uL D-Dimer (<0.60) mg/L FEU Sodium (137-145) mmol/L Potassium (3.5-5.1) mmol/L Chloride (98-107) mmol/L Carbon Dioxide (22-30) mmol/L BUN (7-17) mg/dL Glucose (74-99) mg/dL POC Glucose (mg/dL) 225 H 191 H 56 L (75-99) mg/dL ALT (4-34) U/L Lactate Dehydrogenase (313-618) U/L Total Protein (6.3-8.2) g/dL 12/08/20 12/08/20 12/08/20 Range/Units 16:50 20:20 22:05 WBC (3.8-10.6) k/uL RDW (11.5-15.5) % Plt Count (150-450) k/uL Neutrophils # (1.3-7.7) k/uL Lymphocytes # (1.0-4.8) k/uL D-Dimer (<0.60) mg/L FEU Sodium (137-145) mmol/L Potassium 3.3 L (3.5-5.1) mmol/L Chloride (98-107) mmol/L Carbon Dioxide (22-30) mmol/L BUN (7-17) mg/dL Glucose (74-99) mg/dL POC Glucose (mg/dL) 60 L 132 H (75-99) mg/dL ALT (4-34) U/L Lactate Dehydrogenase (313-618) U/L Total Protein (6.3-8.2) g/dL 12/09/20 12/09/20 12/09/20 Range/Units 04:10 04:10 04:10 WBC 10.7 H (3.8-10.6) k/uL RDW 16.7 H (11.5-15.5) % Plt Count 35 L (150-450) k/uL Neutrophils # 10.0 H (1.3-7.7) k/uL Lymphocytes # 0.3 L (1.0-4.8) k/uL D-Dimer 3.38 H (<0.60) mg/L FEU Sodium 132 L (137-145) mmol/L Potassium (3.5-5.1) mmol/L Chloride 95 L (98-107) mmol/L Carbon Dioxide 32 H (22-30) mmol/L BUN 27 H (7-17) mg/dL Glucose 143 H (74-99) mg/dL POC Glucose (mg/dL) (75-99) mg/dL ALT 42 H (4-34) U/L Lactate Dehydrogenase 1080 H (313-618) U/L Total Protein 5.8 L (6.3-8.2) g/dL 12/09/20 Range/Units 06:29 WBC (3.8-10.6) k/uL RDW (11.5-15.5) % Plt Count (150-450) k/uL Neutrophils # (1.3-7.7) k/uL Lymphocytes # (1.0-4.8) k/uL D-Dimer (<0.60) mg/L FEU Sodium (137-145) mmol/L Potassium (3.5-5.1) mmol/L Chloride (98-107) mmol/L Carbon Dioxide (22-30) mmol/L BUN (7-17) mg/dL Glucose (74-99) mg/dL POC Glucose (mg/dL) 130 H (75-99) mg/dL ALT (4-34) U/L Lactate Dehydrogenase (313-618) U/L Total Protein (6.3-8.2) g/dL Assessment and Plan Assessment: 1 Acute Covid 19 related pneumonia with bilateral pulmonary infiltrates most significant in the right upper lobe and the left lung seems to be diffusely infiltrated 2 Acute severe hypoxic respiratory failure, worsening over last 24 hours, patient on FiO2 100%, and BiPAP support, the evidence of worsening inflammatory markers and worsening oxygenation. Started on Remdesivir treatment on 11/21/2020, and high-dose IV Decadron on 11/21/2020. Patient had rapid worsening of oxygenation and was transferred to the intensive care unit on 11/21/2020. She has received 2 units of convalescent plasma. Received Actemra. Currently AirVo at 60 L and 66% FiO2 3 Increased pro-calcitonin rule out possibility of bacterial infection, we'll cover the patient with azithromycin and Rocephin, we'll send urinalysis with cultures, we'll send a Legionella urine antigen and mycoplasma IgM and IgG, both mycoplasma titers were low, Legionella urine antigen was negative, blood cultures have shown no growth. 4 Chronic persistent bronchial asthma with an FEV1 of 82-87% on outpatient basis maintained on Symbicort 5 Steroid-induced hyperglycemia 6 Hypertension 7 Hypothyroidism 8 Osteoarthritis and gout 9 Peripheral neuropathy involving lower extremities 10 Peripheral vascular disease 11 Chronic normocytic anemia 12 More than [id number] smoking history patient is currently an ex-smoker 13 Hiatal hernia with reflux Plan: The patient was seen and evaluated by Dr. Abad Chest x-ray and labs reviewed Continue the current treatment plan Titrate down the FiO2 as tolerated Continue incentive spirometry Increase activity as tolerated We will continue to follow and make further recommendations based on her clinical status Critical care time 35 minutes I, the cosigning physician, performed a history & physical examination of the patient. Lungs sounds with bilateral scattered rhonchi, crackles in the bases. Maintaining good O2 saturations in the 90s on 66% FiO2 via the AirVo. I discussed the assessment and plan of care with my nurse practitioner, Dang Guillen. I attest to the above note as dictated by her.
[2020-12-09] MEDS ORDERED: PETROLATUM, WHITE OINT 50 GM TUBE TOPICAL PRN (11:37)
[2020-12-09 11:46] LABS: Glucose,Whole Blood 99 mg/dL (75-99)
[2020-12-09 16:46] LABS: Glucose,Whole Blood 180 mg/dL (75-99)
--- NOTE | 2020-12-09 17:31 | P.PN ---
Subjective Progress Note Date: 12/09/20 Principal diagnosis: COVID 19 related pneumonia and hypoxemia Acute hypoxic respiratory failure 60-year-old female came in with compensative shortness of breath found to have very low oxygen saturations patient was diagnosed with Covid 19 about 3 days ago patient had having symptoms for about a week. Patient was also company of fever chills patient has low-grade fever here. Patient was seen in [facility] subsequently transferred here patient is presently on 15 L of oxygen. Patient does have history of COPD. Patient was started on Decadron. Pulmonary was consulted. She was complaining of for cough without any significant sputum production. 11/24/2020, patient is seen for a follow-up. The patient is currently still on a BiPAP with an FiO2 of 100%; feeling slightly better; remains afebrile. The chest x-ray remains unchanged and the patient continues to have diffuse but the pulmonary infiltrates consistent with code 19 related pneumonia. Her inflammatory markers are quite abnormal. At LDH from today was 1006 and 41, and her CRP was 59. Note that the CRP level was slightly lower. The pro-calcitonin level from yesterday was 0.18. CPKs nonelevated and a triglyceride level is at 154. The patient has a d-dimer of 14.8. She remains on Lovenox at a dose of 40 mg subcu every 12 hours which is in the order of 0.5 mg per KG every 12 hours. In terms of treatment, the patient remains on Decadron 20 mg IV on the daily basis and she is on Remdesivir and she also received 2 doses of Actemra 400 mg IV. Her oral intake was noted to be quite low as the patient is unable to get herself off the BiPAP for oral intake. Based on that, the patient will be given a PICC line today and she'll be started on TPN for nutritional support to maintain her nutritional status. No fever. No chills. Hemodynamically stable. No other issues for now. Her CODE STATUS is full code. 11/25/2020 patient is seen and evaluated in room for a follow-up; patient became hypoxic again and she had to be placed back on an FiO2 of 100% with a BiPAP pressure of 14/6 cm of water. Her current respiratory rate is in the order of 22-30 breaths per minute. The patient is comfortable. She is tolerating the treatment well. Laboratory review shows d-dimer is up to 30.01. Rest of the inflammatory markers show an LDH level of 1862 and the CRP is down to 40.8. Pro-calcitonin level was at 0.18. patient has received Lovenox at a dose of 40 mg subcu every 12 hours which is in the order of 0.5 mg per KG every 12 hours. In terms of treatment, the patient remains on Decadron 20 mg IV on the daily basis they #4 and she is on Remdesivir #5 and she also received 2 doses of Actemra 400 mg IV. Meanwhile be also inserted a PICC line in the left upper extremity and the patient was started on TPN for nutritional support. No altered mentation pH is resting comfortably in bed. Is slightly higher since the patient was started on TPN and septal 187 and the will going to put this patient on sliding scale blood sugar coverage. 11/26/2020 Patient remains in ICU and remains awake and alert; currently on BiPAP; FiO2 was weaned down to 70% with stable O2 saturation; patient remains on high-dose Decadron in form of 20 mg IV daily; inflammatory markers slowly trending down including CRP of 22, LDH of 1776, d-dimer 23.4 Patient is currently on TPN for nutrition at a rate of 45 hoursalong with blood glucose monitoring every 4 hours with insulin sliding scale; remains stable on IV fluids at 50 mL per hour Patient is being followed by pulmonology service and recommended to continue with Lovenox 40 mg subcu every 12 hours, Decadron 20 mg IV daily along with completing REM treatment; patient has received 2 doses of Actemra 400 mg IV 12/08/2020 patient is seen in follow-up in the intensive care unit. She is awake and alert. She is still requiring AirVo high flow oxygen at 60 L/m and 70% FiO2 to maintain O2 saturations in the 90s. No current IV fluids. She is receiving her second unit of convalescent plasma. Chest x-ray continues to show bilateral patchy perihilar and basilar infiltrates. Not much improvement. White count 9.9. Hemoglobin 11.7. Platelet count 63,000. D-dimer 3.60. Sodium 133. Potassium 3.3. Bicarb 36. Creatinine 0.63. AST 24. ALT 46. LDH 1101. C- reactive protein less than 5.0. She remains on IV Solu-Medrol, bronchodilators, Lovenox, colchicine, Pepcid, vitamin supplements. She's also been diuresed with Lasix 40 mg IV every 12 hours. plan is to continue the treatment as indicated above; titrate down FiO2 as tolerated; continue with incentive spirometry 12/09/2020 Patient is seen and evaluated in follow-up in the intensive care unit. She is currently sitting up in a chair at the bedside. Awake and alert in no acute distress. Continues to require AirVo high flow oxygen at 60 L/m at 66% FiO2. She is able to tolerate a bit more activity without significant desaturations. The amount of time that it takes for her to recover is getting less. Improving in that regard. Chest x-ray still revealing bilateral scattered infiltrates. Currently no IV fluids running. Appetite is improving. White count 10.7. Hemoglobin 11.7. Platelet count dropped to 35,000. Lymphocytes 0.3. D-dimer 3.3. Sodium 132. Potassium 3.9. Creatinine 0.63. Bicarb 32. LDH 1080. C- reactive protein less than 5. She remains on IV Solu-Medrol, bronchodilators, Lovenox, colchicine, Pepcid, vitamin supplements. Diuresed with Lasix 40 mg IV every 12 hours. She remains a negative balance. Continue the current treatment plan; Titrate down the FiO2 as tolerated; Continue incentive spirometry; Increase activity as tolerated Objective - Vital Signs Vital signs: Vital Signs Temp 97.8 F 12/09/20 04:00 Pulse 74 12/09/20 07:00 Resp 27 H 12/09/20 07:00 BP 122/71 12/09/20 07:00 Pulse Ox 94 L 12/09/20 07:00 Intake & Output 12/08/20 12/09/20 12/09/20 18:59 06:59 18:59 Intake Total 1157 400 Output Total 2545 1450 75 Balance -1388 -1450 325 Weight 74.1 kg Intake: Oral 950 400 Blood Product 207 Ffp Pher Conval Covid19 207 Acda 3 Unit [id number] Output: Urine 2545 1450 75 Other: Voiding Method Indwelling Catheter Indwelling Catheter - Exam GENERAL: The patient is alert and oriented x3, not in any acute distress. Well developed, well nourished. HEENT: Pupils are round and equally reacting to light. EOMI. No scleral icterus. No conjunctival pallor. Normocephalic, atraumatic. No pharyngeal erythema. No thyromegaly. CARDIOVASCULAR: S1 and S2 present. No murmurs, rubs, or gallops. PULMONARY: Diffuse bilateral rhonchi without any significant wheezing fairly good air entry into bilateral lung ruiz ABDOMEN: Soft, nontender, nondistended, normoactive bowel sounds. No palpable organomegaly. MUSCULOSKELETAL: No joint swelling or deformity. EXTREMITIES: No cyanosis, clubbing, patient does have some pedal edema NEUROLOGICAL: Gross neurological examination did not reveal any focal deficits. - Labs CBC & Chem 7: 12/09/20 04:10 12/09/20 04:10 Labs: Abnormal Lab Results - Last 24 Hours (Table) 12/08/20 12/08/20 12/08/20 Range/Units 14:07 16:48 16:50 WBC (3.8-10.6) k/uL RDW (11.5-15.5) % Plt Count (150-450) k/uL Neutrophils # (1.3-7.7) k/uL Lymphocytes # (1.0-4.8) k/uL D-Dimer (<0.60) mg/L FEU Sodium (137-145) mmol/L Potassium (3.5-5.1) mmol/L Chloride (98-107) mmol/L Carbon Dioxide (22-30) mmol/L BUN (7-17) mg/dL Glucose (74-99) mg/dL POC Glucose (mg/dL) 191 H 56 L 60 L (75-99) mg/dL ALT (4-34) U/L Lactate Dehydrogenase (313-618) U/L Total Protein (6.3-8.2) g/dL 12/08/20 12/08/20 12/09/20 Range/Units 20:20 22:05 04:10 WBC 10.7 H (3.8-10.6) k/uL RDW 16.7 H (11.5-15.5) % Plt Count 35 L (150-450) k/uL Neutrophils # 10.0 H (1.3-7.7) k/uL Lymphocytes # 0.3 L (1.0-4.8) k/uL D-Dimer (<0.60) mg/L FEU Sodium (137-145) mmol/L Potassium 3.3 L (3.5-5.1) mmol/L Chloride (98-107) mmol/L Carbon Dioxide (22-30) mmol/L BUN (7-17) mg/dL Glucose (74-99) mg/dL POC Glucose (mg/dL) 132 H (75-99) mg/dL ALT (4-34) U/L Lactate Dehydrogenase (313-618) U/L Total Protein (6.3-8.2) g/dL 12/09/20 12/09/20 12/09/20 Range/Units 04:10 04:10 06:29 WBC (3.8-10.6) k/uL RDW (11.5-15.5) % Plt Count (150-450) k/uL Neutrophils # (1.3-7.7) k/uL Lymphocytes # (1.0-4.8) k/uL D-Dimer 3.38 H (<0.60) mg/L FEU Sodium 132 L (137-145) mmol/L Potassium (3.5-5.1) mmol/L Chloride 95 L (98-107) mmol/L Carbon Dioxide 32 H (22-30) mmol/L BUN 27 H (7-17) mg/dL Glucose 143 H (74-99) mg/dL POC Glucose (mg/dL) 130 H (75-99) mg/dL ALT 42 H (4-34) U/L Lactate Dehydrogenase 1080 H (313-618) U/L Total Protein 5.8 L (6.3-8.2) g/dL Assessment and Plan Assessment: -Acute hypoxic respiratory failure: Requiring BiPAP.. Secondary to Covid 19 pn [place] patient was started on Decadron started on the GI prophylaxis as well as Lovenox for DVT prophylaxis. Started on remdesivir. -COPD with mild acute exacerbation secondary to Covid 19. Pulmonology was consulted -Hyperlipidemia -Hypothyroidism -History of gout for which she'll patient is on colchicine which will be continued -Peripheral edema: Due to probably chronic venous stasis and patient will be resumed on Lasix oral. -Hiatal hernia with gastroesophageal reflux disease patient was resumed on Prilosec CODE STATUS; full code
[2020-12-09 20:10] LABS: Glucose,Whole Blood 188 mg/dL (75-99)
[2020-12-09] MEDS: PRAMIPEXOLE 0.5 MG TAB PO SCH (20:49)
[2020-12-09] MEDS: MONTELUKAST 10 MG TAB PO SCH (20:49)
[2020-12-09] MEDS: MELATONIN 3 MG TABLET PO SCH (20:49)
[2020-12-09] MEDS: GABAPENTIN 300 MG CAP PO SCH (20:49)
[2020-12-09] MEDS: ATORVASTATIN 40 MG TAB PO SCH (20:49)
[2020-12-09] MEDS: THEOPHYLLINE 24 HOUR 300 MG CAP.ER.24H PO SCH (20:49)
[2020-12-10 04:47] LABS: Anisocytosis Slight; Basophils % (A) 1 %; Eosinophils # (A) 0.2 k/uL (0-0.7); Eosinophils % (A) 2 %; HCT 36.9 % (34.0-46.0); HGB 12.4 gm/dL (11.4-16.0); Lymphocytes # (A) 0.2 k/uL (1.0-4.8); Lymphocytes % (A) 2 %; MCH 29.8 pg (25.0-35.0); MCHC 33.6 g/dL (31.0-37.0); MCV 88.8 fL (80.0-100.0); Mean Platelet Volume 9.7; Monocytes # (A) 0.2 k/uL (0-1.0); Monocytes % (A) 2 %; Neutrophils # (A) 8.8 k/uL (1.3-7.7); RBC 4.16 m/uL (3.80-5.40); RDW 16.6 % (11.5-15.5); WBC 9.5 k/uL (3.8-10.6)
[2020-12-10 04:56] LABS: ALT 44 U/L (4-34); AST 24 U/L (14-36); African American GFR (CKD) >90 (>60 ml/min/1.73 sqM); Albumin 3.5 g/dL (3.5-5.0); Alkaline Phosphatase 80 U/L (38-126); Anion Gap 6 mmol/L; Blood Urea Nitrogen 29 mg/dL (7-17); Carbon Dioxide 34 mmol/L (22-30); Chloride 94 mmol/L (98-107); Glucose 146 mg/dL (74-99); Non-African American GFR(CKD) >90 (>60 ml/min/1.73 sqM); Potassium 3.2 mmol/L (3.5-5.1); Sodium 134 mmol/L (137-145); Total Bilirubin 0.8 mg/dL (0.2-1.3); Total Protein 5.8 g/dL (6.3-8.2)
[2020-12-10] MEDS: POTASSIUM CHLORIDE ER 20 MEQ TAB.ER PO SCH ×2 (05:25→06:33)
[2020-12-10 05:55] LABS: Platelet Count 15 k/uL (150-450)
[2020-12-10] MEDS: LEVOTHYROXINE 75 MCG TAB PO SCH (06:33)
[2020-12-10 06:39] LABS: Glucose,Whole Blood 169 mg/dL (75-99)
[2020-12-10] MEDS: INSULIN ASPART (NovoLOG) 100 UNIT/ML VIAL SQ SCH ×4 (06:41→20:27)
[2020-12-10] MEDS: ALBUTEROL HFA INHALER INHALATION SCH ×4 (07:56→19:37)
[2020-12-10] MEDS: TIOTROPIUM 2.5 MCG INHALER INHALATION SCH (07:56)
[2020-12-10] MEDS: SYMBICORT 160-4.5 MCG INHALER INHALATION SCH ×2 (07:56→19:38)
[2020-12-10] MEDS: NYSTATIN 100,000 UNIT/ML SUSP 500,000 UNIT/5 ML CUP PO SCH ×4 (08:30→20:28)
[2020-12-10] MEDS: methylPREDNISolone SOD SUCCI 40 MG/ML 1 ML VIAL IV SCH ×3 (08:30→23:18)
[2020-12-10] MEDS: FUROSEMIDE 10 MG/ML 4 ML VIAL IV SCH ×2 (08:31→20:28)
[2020-12-10] MEDS: GABAPENTIN 100 MG CAP PO SCH ×2 (08:31→12:05)
[2020-12-10] MEDS: COLCHICINE 0.6 MG EACH PO SCH ×2 (08:31→20:28)
[2020-12-10] MEDS: allopurinoL 300 MG TAB PO SCH (08:31)
[2020-12-10] MEDS: ZINC SULFATE 220 MG CAP PO SCH (08:31)
[2020-12-10] MEDS: ASCORBIC ACID 500 MG TAB PO SCH (08:31)
[2020-12-10] MEDS: SUCRALFATE 1 GM TAB PO SCH ×4 (08:32→23:18)
[2020-12-10] MEDS: FAMOTIDINE 20 MG TAB PO SCH ×2 (08:32→20:27)
[2020-12-10 11:46] LABS: Glucose,Whole Blood 114 mg/dL (75-99)
--- NOTE | 2020-12-10 12:02 | P.PN ---
Subjective Progress Note Date: 12/10/20 Principal diagnosis: Acute hypoxic respiratory failure secondary to CoVID 19 pneumonia 60-year-old here patient hospitalized for COVID 19 related pneumonia and hypoxemia. The patient was found to have a low oxygen saturation. She was diagnosed having COVID 19 on 11/20/2020. However, her symptoms started approximately a week prior to that as the patient started having generalized weakness, fever and chills. In the hospital at [place], she was found to be hypoxic and she was placed on 15 L of oxygen by nasal cannula. She was started on Decadron and following that she was transferred to [facility] on 11/20/2020 for further evaluation. On today's evaluation the patient remains on 15 L of oxygen by nasal cannula. Laboratory markers show a LDH of 1482, her CRP is 239, her pro-calcitonin level is at 1.28, her white cell count is at 4.5 and the patient has a lymphopenia with a lymphocyte count of 0.7. The electrolytes all within normal limits. Renal function is within normal limits. Glucose slightly elevated at 235. The chest x-ray is showing bilateral pulmonary infiltrates mainly involving the left lung and or significantly in the right upper lobe area. The patient is known to have COPD/asthma. The patient is also has history of hypothyroidism, hyperlipidemia and gout. She has history of hiatal hernia.. She is on Decadron 6 mg by mouth daily. She is on no DVT prophylaxis is receiving 40 mg of Lovenox her d-dimer level is at 0.36. On 11/22/2020 patient seen in follow-up in intensive care unit. She is awake and alert, oriented 3, she is currently on BiPAP support with pressures of 14/5 and FiO2 of 100%, and her SpO2 is a 99%. Patient states she doesn't feel significantly more short of breath, however she tachypneic with a respiratory rate of 28 BPM, she has been febrile T-max of 10 1F, her pro-calcitonin came back elevated at 1.28 suggesting possibility of bacterial infection. Today we started her on Remdesivir, today's date to off treatment, her inflammatory markers are trending up, LDH is up to 1940, CRP is 143.6, d-dimer is 0.78, and is on prophylactic dose of Lovenox 40 mg daily, electrolytes and renal profile are unremarkable. O'Christiano is 9.2, hemoglobin is 11, platelet count is 322, neutrophils is 8.3, and in lymphocyte count is 0.5. Patient is on day 2 of high-dose IV steroids 20 mg daily. Patient is awake and alert, oriented 3, yesterday she reversed her CODE STATUS, from DO NOT RESUSCITATE to full code. On 11/23/2020 patient seen in follow-up in the intensive care unit, she remains on BiPAP support, has been very much dependent on it, and he desaturates rapidly even for short periods when the BiPAP mask is removed to give the patient oral medications, current BiPAP settings of 14/60 and FiO2 of 100%, her pulse ox is 93%. Awake and alert, she is oriented 3, she states her breathing is stable as long as she does not move and lays very still in bed. She is complaining of a dry cough, no chest discomfort, no palpitations. She is in sinus mechanism, bradycardic with a rate of 55 BPM, blood pressure is 116/66, not on any vasopressor support, her current IV fluids are 0.9 normal saline at a rate of 20 ML per hour. Patient's pattern has improved, T-max in last 24 hours 99.5F. Urinalysis was sent and shows no signs of infection, blood cultures will be sent today, last pro calcitonin yesterday was 1.29, repeat pro calcitonin has been sent and pending at this time, patient was empirically placed on azithromycin and Rocephin. Maintenance on high-dose IV steroids currently with Decadron 20 mg IV on the daily basis. Absent been reviewed, her d-dimer has trended up, and is at 5.13 today, her Lovenox dose will be adjusted 0.5 mg/kg of body weight twice daily, LDH is down slightly, 1670, CRP is relatively stable at 140.5. Electronic are within normal limits, patient is mildly prerenal, BUN is 30 creatinine 0.74, she also remains on oral dose of Lasix and she has had very limited oral intake. She has only been able to take one or 2 sips of oral liquids and she states things do not taste right. White blood cell count is 6.5, hemoglobin is 10.5. His chest x-ray has been reviewed and diffuse increasing groundglass opacities. I discussed the patient's CODE STATUS with he yadi, and she is agreeable to CPR, intubation, defibrillation, CODE STATUS will be changed to full code On 12/04/2020 patient seen in follow-up in the intensive care unit, she is off the BiPAP support, and currently on high flow oxygen per Airvo 60 L/m and FiO2 of 70%, with a pulse ox between 92-94%, she is breathing comfortably, denies any chest discomfort, she sitting up in a chair, she looks comfortable, she has had no fever or chills. Today's chest x-ray shows coarse infiltrates bilaterally w ith slight interval progression. Patient is tolerating oral diet. She is off the TPN. She is on 0.9 normal saline at a rate of 10 ML per hour, today's labs have been reviewed, d-dimer is improved from a few days back and is down to 6.70, patient is on Lovenox 40 mg twice a day, white blood cell count is 9.1, hemoglobin is 10.8, sodium is 134, potassium is 4.4, chloride is 96, CO2 is 34, B1 is 20, creatinine 0.64 LDH is 1660, CRP is less than 5. Patient remains on daily dose of IV Lasix, colchicine, Pepcid 20 mg twice a day, bronchodilators, IV Solu-Medrol 40 mg every 8 hours On 12/05/2020 patient is seen in follow-up in the intensive care unit, she remains on high flow oxygen per Airvo at 60 L/m and FiO2 of 75%, in the night her FiO2 have to be bumped up a little bit from a 70% because of an episode of desaturation. She also required 4 hours on BiPAP support. However this morning patient appears to be calm and comfortable, sitting up in the recliner, in her pulse ox on the Airvo at previously mentioned settings is 98-100%, she is breathing comfortaby. Patient is awake and alert, oriented 3, no altered mentation, she is in sinus mechanism, she is on 0.9 at 10 ML per hour, no other drips, she's been afebrile, vital signs have been stable. Chest x-ray has been reviewed, and it shows patchy perihilar and basilar infiltrates persistence without significant change. She remains on once daily dose of Lasix, and she is in -1090 mL fluid balance over the last 24 hours. She has been tolerating oral intake, no nausea vomiting or abdominal pain. Currently patient remains on IV steroids with Solu-Medrol 40 mg every 8 hours, colchicine, vitamin C D and zinc, melatonin, and bronchodilators. Today's d-dimer is 7.58. And patient remains on Lovenox at 40 mg twice daily which is 0.5 mg/kg of body weight twice daily. Patient also continues on Zosyn for empiric antibiotic coverage. Blood cultures have shown no growth. Follow-up LDH is trending down on today's labs and is down to 1370, CRP is less than 5. On 12/06/2020 patient seen in follow-up in intensive care unit, patient remains on Airvo at 60L and Fio2 75%. Satting between 88-91%, did require BiPap support last night for a few hours, currently back on Airvo. Patient is breathing comfortably, no acute distress, no chest discomfort. No fever, or chills. Patient is currently on 0.9 NS at 10 ml/hr. patient remains on Lasix, she is in -1.8 L fluid balance over the last 24 hours, however her chest x-ray shows worsening airspace disease, and pulmonary edema. Blood pressure has been stable, today's labs have been reviewed, showing serum sodium of 135, potassium is 4.3, chloride is 97, CO2 is 24, B1 is 24, creatinine 0.64. Proalcitonin level came back negative, we can stop the Zosyn cultures are negative. No fever or chills. No nausea vomiting diarrhea. On 12/07/2020 patient seen in follow-up in intensive care unit, she remains on high flow oxygen per Airvo at 60 L, and FiO2 of 70%, and her pulse ox is 90-91%, looks fairly comfortable, she is sitting up on the edge of the bed, appears to be in no acute distress, she is getting ready to eat breakfast this morning, she has been afebrile, vital signs have been stable. her chest x-ray today showed diffuse increased lung markings more focal in the right lower lobe, patient has received increased dose of Lasix, and her chest x-ray shows better aeration compared to yesterday's exam.today's labs have been reviewed, her d-dimer is trending down, down to 5.40, white count is 10.2, hemoglobin is 11.4, sodium is 134, potassium is 3.3, chloride 96, CO2 is 23, BUN is 26 creatinine 0.64. LDH is 1300, CRP is less than 5, blood culture has shown no growth. The patient is seen today 12/08/2020 in follow-up in the intensive care unit. She is awake and alert. She is still requiring AirVo high flow oxygen at 60 L/m and 70% FiO2 to maintain O2 saturations in the 90s. No current IV fluids. She is receiving her second unit of convalescent plasma. Chest x-ray continues to show bilateral patchy perihilar and basilar infiltrates. Not much improvement. White count 9.9. Hemoglobin 11.7. Platelet count 63,000. D-dimer 3.60. Sodium 133. Potassium 3.3. Bicarb 36. Creatinine 0.63. AST 24. ALT 46. LDH 1101. C-reactive protein less than 5.0. She remains on IV Solu-Medrol, bronchodilators, Lovenox, colchicine, Pepcid, vitamin supplements. She's also been diuresed with Lasix 40 mg IV every 12 hours. The patient is seen today 12/09/2020 in follow-up in the intensive care unit. She is currently sitting up in a chair at the bedside. Awake and alert in no acute distress. Continues to require AirVo high flow oxygen at 60 L/m at 66% FiO2. She is able to tolerate a bit more activity without significant desaturations. The amount of time that it takes for her to recover is getting less. Improving in that regard. Chest x-ray still revealing bilateral scattered infiltrates. Currently no IV fluids running. Appetite is improving. White count 10.7. Hemoglobin 11.7. Platelet count dropped to 35,000. Lymphocytes 0.3. D-dimer 3.3. Sodium 132. Potassium 3.9. Creatinine 0.63. Bicarb 32. LDH 1080. C-reactive protein less than 5. She remains on IV Solu- Medrol, bronchodilators, Lovenox, colchicine, Pepcid, vitamin supplements. Diuresed with Lasix 40 mg IV every 12 hours. She remains a negative balance. The patient is seen today 12/10/2020 in follow-up in the intensive care unit. He is currently resting comfortably in bed. She remains awake and alert in no acute distress. Her oxygen requirements continued to improve slowly. She is on the AirVo at 55 L/m and 55% FiO2. No IV fluids. Her appetite has been fair. White count 9.5. Hemoglobin 12.4. Platelet count 15,000. D-dimer 2.99. Sodium 134. Potassium 3.2. Creatinine 0.61. She remains off Lovenox. HIT labs are pending. She remains on IV Solu-Medrol, bronchodilators, colchicine, Pepcid, vitamin supplements, IV diuretics. She remains a negative balance. Objective - Vital Signs Vital signs: Vital Signs Temp 98.7 F 12/10/20 08:00 Pulse 104 H 12/10/20 11:00 Resp 30 H 12/10/20 11:00 BP 118/82 12/10/20 11:00 Pulse Ox 91 L 12/10/20 11:00 Intake & Output 12/09/20 12/10/20 12/10/20 18:59 06:59 18:59 Intake Total 1600 20 Output Total 1900 1240 260 Balance -300 -1220 -260 Weight 75.3 kg Intake: Oral 1600 20 Output: Urine 1900 1240 260 Other: Voiding Method Indwelling Catheter Indwelling Catheter Indwelling Catheter - Exam GENERAL EXAM: Alert, pleasant, 60-year-old female patient on Airvo at 55 L/m, and FiO2 of 55% with O2 saturation 88-90%, comfortable in no apparent distress. HEAD: Normocephalic/atraumatic. EYES: Normal reaction of pupils, equal size. Conjunctiva pink, sclera white. NOSE: Clear with pink turbinates. THROAT: No erythema or exudates. NECK: No masses, no JVD, no thyroid enlargement, no adenopathy. CHEST: No chest wall deformity. Symmetrical expansion. LUNGS: Equal air entry with diffuse scattered ronchi, crackles in the bases CVS: Regular rate and rhythm, normal S1 and S2, no gallops, no murmurs, no rubs ABDOMEN: Soft, nontender. No hepatosplenomegaly, normal bowel sounds, no guarding or rigidity. EXTREMITIES: No clubbing, no edema, no cyanosis, 2+ pulses and upper and lower extremities. MUSCULOSKELETAL: Muscle strength and tone normal. SPINE: No scoliosis or deformity SKIN: No rashes CENTRAL NERVOUS SYSTEM: No focal deficits, tone is normal in all 4 extremities. PSYCHIATRIC: Alert and oriented -3. Appropriate affect. Intact judgment and insight. - Labs CBC & Chem 7: 12/10/20 04:30 12/10/20 08:40 Labs: Abnormal Lab Results - Last 24 Hours (Table) 12/09/20 12/09/20 12/10/20 Range/Units 16:44 20:09 04:30 RDW 16.6 H (11.5-15.5) % Plt Count 15 L* D (150-450) k/uL Neutrophils # 8.8 H (1.3-7.7) k/uL Lymphocytes # 0.2 L (1.0-4.8) k/uL D-Dimer (<0.60) mg/L FEU Sodium (137-145) mmol/L Potassium (3.5-5.1) mmol/L Chloride (98-107) mmol/L Carbon Dioxide (22-30) mmol/L BUN (7-17) mg/dL Glucose (74-99) mg/dL POC Glucose (mg/dL) 180 H 188 H (75-99) mg/dL ALT (4-34) U/L Total Protein (6.3-8.2) g/dL 12/10/20 12/10/20 12/10/20 Range/Units 04:30 06:38 07:28 RDW (11.5-15.5) % Plt Count (150-450) k/uL Neutrophils # (1.3-7.7) k/uL Lymphocytes # (1.0-4.8) k/uL D-Dimer 2.99 H (<0.60) mg/L FEU Sodium 134 L (137-145) mmol/L Potassium 3.2 L (3.5-5.1) mmol/L Chloride 94 L (98-107) mmol/L Carbon Dioxide 34 H (22-30) mmol/L BUN 29 H (7-17) mg/dL Glucose 146 H (74-99) mg/dL POC Glucose (mg/dL) 169 H (75-99) mg/dL ALT 44 H (4-34) U/L Total Protein 5.8 L (6.3-8.2) g/dL 12/10/20 Range/Units 11:45 RDW (11.5-15.5) % Plt Count (150-450) k/uL Neutrophils # (1.3-7.7) k/uL Lymphocytes # (1.0-4.8) k/uL D-Dimer (<0.60) mg/L FEU Sodium (137-145) mmol/L Potassium (3.5-5.1) mmol/L Chloride (98-107) mmol/L Carbon Dioxide (22-30) mmol/L BUN (7-17) mg/dL Glucose (74-99) mg/dL POC Glucose (mg/dL) 114 H (75-99) mg/dL ALT (4-34) U/L Total Protein (6.3-8.2) g/dL Assessment and Plan Assessment: 1 Acute Covid 19 related pneumonia with bilateral pulmonary infiltrates most significant in the right upper lobe and the left lung seems to be diffusely infiltrated 2 Acute severe hypoxic respiratory failure, slow to progress. Currently AirVo a t 55 L and 55% FiO2 3 Increased pro-calcitonin ruled out possibility of bacterial infection, both m ycoplasma titers were low, Legionella urine antigen was negative, blood cultures have shown no growth. 4 Chronic persistent bronchial asthma with an FEV1 of 82-87% on outpatient basis maintained on Symbicort 5 Steroid-induced hyperglycemia, improved 6 Hypertension 7 Hypothyroidism 8 Osteoarthritis and gout 9 Peripheral neuropathy involving lower extremities 10 Peripheral vascular disease 11 Chronic normocytic anemia 12 More than 67-[id number]-crie smoking history patient is currently an ex-smoker 13 Hiatal hernia with reflux Plan: The patient was seen and evaluated by Dr. Abad Continue the current treatment plan Titrate down the FiO2 as tolerated Continue incentive spirometry Increase activity as tolerated Continue to monitor her closely here in the ICU We will continue to follow and make further recommendations based on her clinical status Critical care time 37 minutes I, the cosigning physician, performed a history & physical examination of the patient. Lungs sounds with bilateral scattered rhonchi, crackles in the bases. Maintaining good O2 saturations in the 90s on 55% FiO2 via the AirVo. I discussed the assessment and plan of care with my nurse practitioner, Dang Guillen. I attest to the above note as dictated by her.
--- NOTE | 2020-12-10 12:23 | P.PN ---
Subjective Progress Note Date: 12/10/20 Principal diagnosis: COVID 19 related pneumonia and hypoxemia Acute hypoxic respiratory failure 60-year-old female came in with compensative shortness of breath found to have very low oxygen saturations patient was diagnosed with Covid 19 about 3 days ago patient had having symptoms for about a week. Patient was also company of fever chills patient has low-grade fever here. Patient was seen in [facility] subsequently transferred here patient is presently on 15 L of oxygen. Patient does have history of COPD. Patient was started on Decadron. Pulmonary was consulted. She was complaining of for cough without any significant sputum production. 11/24/2020, patient is seen for a follow-up. The patient is currently still on a BiPAP with an FiO2 of 100%; feeling slightly better; remains afebrile. The chest x-ray remains unchanged and the patient continues to have diffuse but the pulmonary infiltrates consistent with code 19 related pneumonia. Her inflammatory markers are quite abnormal. At LDH from today was 1006 and 41, and her CRP was 59. Note that the CRP level was slightly lower. The pro-calcitonin level from yesterday was 0.18. CPKs nonelevated and a triglyceride level is at 154. The patient has a d-dimer of 14.8. She remains on Lovenox at a dose of 40 mg subcu every 12 hours which is in the order of 0.5 mg per KG every 12 hours. In terms of treatment, the patient remains on Decadron 20 mg IV on the daily basis and she is on Remdesivir and she also received 2 doses of Actemra 400 mg IV. Her oral intake was noted to be quite low as the patient is unable to get herself off the BiPAP for oral intake. Based on that, the patient will be given a PICC line today and she'll be started on TPN for nutritional support to maintain her nutritional status. No fever. No chills. Hemodynamically stable. No other issues for now. Her CODE STATUS is full code. 11/25/2020 patient is seen and evaluated in room for a follow-up; patient became hypoxic again and she had to be placed back on an FiO2 of 100% with a BiPAP pressure of 14/6 cm of water. Her current respiratory rate is in the order of 22-30 breaths per minute. The patient is comfortable. She is tolerating the treatment well. Laboratory review shows d-dimer is up to 30.01. Rest of the inflammatory markers show an LDH level of 1862 and the CRP is down to 40.8. Pro-calcitonin level was at 0.18. patient has received Lovenox at a dose of 40 mg subcu every 12 hours which is in the order of 0.5 mg per KG every 12 hours. In terms of treatment, the patient remains on Decadron 20 mg IV on the daily basis they #4 and she is on Remdesivir #5 and she also received 2 doses of Actemra 400 mg IV. Meanwhile be also inserted a PICC line in the left upper extremity and the patient was started on TPN for nutritional support. No altered mentation pH is resting comfortably in bed. Is slightly higher since the patient was started on TPN and septal 187 and the will going to put this patient on sliding scale blood sugar coverage. 11/26/2020 Patient remains in ICU and remains awake and alert; currently on BiPAP; FiO2 was weaned down to 70% with stable O2 saturation; patient remains on high-dose Decadron in form of 20 mg IV daily; inflammatory markers slowly trending down including CRP of 22, LDH of 1776, d-dimer 23.4 Patient is currently on TPN for nutrition at a rate of 45 hoursalong with blood glucose monitoring every 4 hours with insulin sliding scale; remains stable on IV fluids at 50 mL per hour Patient is being followed by pulmonology service and recommended to continue with Lovenox 40 mg subcu every 12 hours, Decadron 20 mg IV daily along with completing REM treatment; patient has received 2 doses of Actemra 400 mg IV 12/08/2020 patient is seen in follow-up in the intensive care unit. She is awake and alert. She is still requiring AirVo high flow oxygen at 60 L/m and 70% FiO2 to maintain O2 saturations in the 90s. No current IV fluids. She is receiving her second unit of convalescent plasma. Chest x-ray continues to show bilateral patchy perihilar and basilar infiltrates. Not much improvement. White count 9.9. Hemoglobin 11.7. Platelet count 63,000. D-dimer 3.60. Sodium 133. Potassium 3.3. Bicarb 36. Creatinine 0.63. AST 24. ALT 46. LDH 1101. C- reactive protein less than 5.0. She remains on IV Solu-Medrol, bronchodilators, Lovenox, colchicine, Pepcid, vitamin supplements. She's also been diuresed with Lasix 40 mg IV every 12 hours. plan is to continue the treatment as indicated above; titrate down FiO2 as tolerated; continue with incentive spirometry 12/09/2020 Patient is seen and evaluated in follow-up in the intensive care unit. She is currently sitting up in a chair at the bedside. Awake and alert in no acute distress. Continues to require AirVo high flow oxygen at 60 L/m at 66% FiO2. She is able to tolerate a bit more activity without significant desaturations. The amount of time that it takes for her to recover is getting less. Improving in that regard. Chest x-ray still revealing bilateral scattered infiltrates. Currently no IV fluids running. Appetite is improving. White count 10.7. Hemoglobin 11.7. Platelet count dropped to 35,000. Lymphocytes 0.3. D-dimer 3.3. Sodium 132. Potassium 3.9. Creatinine 0.63. Bicarb 32. LDH 1080. C- reactive protein less than 5. She remains on IV Solu-Medrol, bronchodilators, Lovenox, colchicine, Pepcid, vitamin supplements. Diuresed with Lasix 40 mg IV every 12 hours. She remains a negative balance. Continue the current treatment plan; Titrate down the FiO2 as tolerated; Continue incentive spirometry; Increase activity as tolerated 12/10/2020 Patient is seen and evaluated in follow-up in the intensive care unit; resting comfortably in bed. She remains awake and alert in no acute distress; oxygen requirements continued to improve slowly. She is on the AirVo at 55 L/m and 55% FiO2. No IV fluids. She remains on IV Solu-Medrol, bronchodilators, colchicine, Pepcid, vitamin supplements, IV diuretics. She remains a negative balance. Intensive care service is following and recommending to continue to monitor in ICU Objective - Vital Signs Vital signs: Vital Signs Temp 98.7 F 12/10/20 08:00 Pulse 105 H 12/10/20 09:00 Resp 31 H 12/10/20 09:00 BP 130/83 12/10/20 09:00 Pulse Ox 85 L 12/10/20 09:00 Intake & Output 02/0612/10/20 12/10/20 18:59 06:59 18:59 Intake Total 1600 20 Output Total 1900 1240 260 Balance -300 -1220 -260 Weight 75.3 kg Intake: Oral 1600 20 Output: Urine 1900 1240 260 Other: Voiding Method Indwelling Catheter Indwelling Catheter Indwelling Catheter - Exam GENERAL: The patient is alert and oriented x3, not in any acute distress. Well developed, well nourished. HEENT: Pupils are round and equally reacting to light. EOMI. No scleral icterus. No conjunctival pallor. Normocephalic, atraumatic. No pharyngeal erythema. No thyromegaly. CARDIOVASCULAR: S1 and S2 present. No murmurs, rubs, or gallops. PULMONARY: Diffuse bilateral rhonchi without any significant wheezing fairly good air entry into bilateral lung ruiz ABDOMEN: Soft, nontender, nondistended, normoactive bowel sounds. No palpable organomegaly. MUSCULOSKELETAL: No joint swelling or deformity. EXTREMITIES: No cyanosis, clubbing, patient does have some pedal edema NEUROLOGICAL: Gross neurological examination did not reveal any focal deficits. - Labs CBC & Chem 7: 12/10/20 04:30 12/10/20 08:40 Labs: Abnormal Lab Results - Last 24 Hours (Table) 12/09/20 12/09/20 12/10/20 Range/Units 16:44 20:09 04:30 RDW 16.6 H (11.5-15.5) % Plt Count 15 L* D (150-450) k/uL Neutrophils # 8.8 H (1.3-7.7) k/uL Lymphocytes # 0.2 L (1.0-4.8) k/uL D-Dimer (<0.60) mg/L FEU Sodium (137-145) mmol/L Potassium (3.5-5.1) mmol/L Chloride (98-107) mmol/L Carbon Dioxide (22-30) mmol/L BUN (7-17) mg/dL Glucose (74-99) mg/dL POC Glucose (mg/dL) 180 H 188 H (75-99) mg/dL ALT (4-34) U/L Total Protein (6.3-8.2) g/dL 12/10/20 12/10/20 12/10/20 Range/Units 04:30 06:38 07:28 RDW (11.5-15.5) % Plt Count (150-450) k/uL Neutrophils # (1.3-7.7) k/uL Lymphocytes # (1.0-4.8) k/uL D-Dimer 2.99 H (<0.60) mg/L FEU Sodium 134 L (137-145) mmol/L Potassium 3.2 L (3.5-5.1) mmol/L Chloride 94 L (98-107) mmol/L Carbon Dioxide 34 H (22-30) mmol/L BUN 29 H (7-17) mg/dL Glucose 146 H (74-99) mg/dL POC Glucose (mg/dL) 169 H (75-99) mg/dL ALT 44 H (4-34) U/L Total Protein 5.8 L (6.3-8.2) g/dL Assessment and Plan Assessment: -Acute hypoxic respiratory failure: Requiring BiPAP.. Secondary to Covid 19 pneumonia patient was started on Decadron started on the GI prophylaxis as well as Lovenox for DVT prophylaxis. Started on remdesivir. -COPD with mild acute exacerbation secondary to Covid 19. Pulmonology was consulted -Hyperlipidemia -Hypothyroidism -History of gout for which she'll patient is on colchicine which will be continued -Peripheral edema: Due to probably chronic venous stasis and patient will be resumed on Lasix oral. -Hiatal hernia with gastroesophageal reflux disease patient was resumed on Prilosec CODE STATUS; full code
[2020-12-10 16:19] LABS: Glucose,Whole Blood 96 mg/dL (75-99)
[2020-12-10] MEDS ORDERED: POTASSIUM CHLORIDE ER 20 MEQ TAB.ER PO SCH (18:00)
[2020-12-10 20:06] LABS: Glucose,Whole Blood 170 mg/dL (75-99)
[2020-12-10] MEDS: SENNOSIDES 8.6 MG TAB PO PRN (20:27)
[2020-12-10] MEDS: GABAPENTIN 300 MG CAP PO SCH (20:27)
[2020-12-10] MEDS: MONTELUKAST 10 MG TAB PO SCH (20:27)
[2020-12-10] MEDS: ATORVASTATIN 40 MG TAB PO SCH (20:27)
[2020-12-10] MEDS: MELATONIN 3 MG TABLET PO SCH (20:27)
[2020-12-10] MEDS: PRAMIPEXOLE 0.5 MG TAB PO SCH (20:28)
[2020-12-10] MEDS: THEOPHYLLINE 24 HOUR 300 MG CAP.ER.24H PO SCH (20:28)
[2020-12-11 04:41] LABS: Anisocytosis Slight; Basophils % (A) 0 %; Eosinophils # (A) 0.1 k/uL (0-0.7); Eosinophils % (A) 1 %; HCT 38.4 % (34.0-46.0); HGB 12.3 gm/dL (11.4-16.0); Lymphocytes # (A) 0.3 k/uL (1.0-4.8); Lymphocytes % (A) 2 %; MCHC 32.1 g/dL (31.0-37.0); MCV 90.3 fL (80.0-100.0); Mean Platelet Volume 8.3; Monocytes # (A) 0.4 k/uL (0-1.0); Monocytes % (A) 4 %; Neutrophils # (A) 10.4 k/uL (1.3-7.7); Neutrophils % (A) 93 %; RBC 4.26 m/uL (3.80-5.40); WBC 11.1 k/uL (3.8-10.6)
[2020-12-11 04:44] LABS: Platelet Count 9 k/uL (150-450)
[2020-12-11 05:09] LABS: ALT 47 U/L (4-34); AST 26 U/L (14-36); African American GFR (CKD) >90 (>60 ml/min/1.73 sqM); Albumin 3.6 g/dL (3.5-5.0); Alkaline Phosphatase 83 U/L (38-126); Anion Gap 7 mmol/L; Blood Urea Nitrogen 31 mg/dL (7-17); Calcium 9.3 mg/dL (8.4-10.2); Carbon Dioxide 33 mmol/L (22-30); Chloride 91 mmol/L (98-107); Glucose 143 mg/dL (74-99); Magnesium 2.4 mg/dL (1.6-2.3); Non-African American GFR(CKD) >90 (>60 ml/min/1.73 sqM); Potassium 3.6 mmol/L (3.5-5.1); Sodium 131 mmol/L (137-145); Total Bilirubin 0.9 mg/dL (0.2-1.3); Total Protein 5.9 g/dL (6.3-8.2)
[2020-12-11] MEDS: LEVOTHYROXINE 75 MCG TAB PO SCH (05:50)
[2020-12-11] MEDS ORDERED: POTASSIUM CHLORIDE ER 20 MEQ TAB.ER PO SCH (06:00)
[2020-12-11 06:38] LABS: Glucose,Whole Blood 133 mg/dL (75-99)
[2020-12-11] MEDS: INSULIN ASPART (NovoLOG) 100 UNIT/ML VIAL SQ SCH ×4 (06:50→20:32)
[2020-12-11] MEDS: SYMBICORT 160-4.5 MCG INHALER INHALATION SCH ×2 (08:08→20:24)
[2020-12-11] MEDS: ALBUTEROL HFA INHALER INHALATION SCH ×4 (08:08→20:24)
[2020-12-11] MEDS: TIOTROPIUM 2.5 MCG INHALER INHALATION SCH (08:08)
[2020-12-11] MEDS: SUCRALFATE 1 GM TAB PO SCH ×4 (08:09→20:31)
[2020-12-11] MEDS: ASCORBIC ACID 500 MG TAB PO SCH (08:09)
[2020-12-11] MEDS: methylPREDNISolone SOD SUCCI 40 MG/ML 1 ML VIAL IV SCH ×3 (08:09→23:10)
[2020-12-11] MEDS: GABAPENTIN 100 MG CAP PO SCH ×2 (08:09→12:53)
[2020-12-11] MEDS: ZINC SULFATE 220 MG CAP PO SCH (08:09)
[2020-12-11] MEDS: FUROSEMIDE 10 MG/ML 4 ML VIAL IV SCH ×2 (08:09→09:00)
[2020-12-11] MEDS: FAMOTIDINE 20 MG TAB PO SCH ×2 (08:09→20:31)
[2020-12-11] MEDS: NYSTATIN 100,000 UNIT/ML SUSP 500,000 UNIT/5 ML CUP PO SCH ×4 (08:10→20:32)
[2020-12-11] MEDS: allopurinoL 300 MG TAB PO SCH (08:10)
[2020-12-11] MEDS: COLCHICINE 0.6 MG EACH PO SCH (08:10)
--- NOTE | 2020-12-11 08:47 | P.PN ---
Subjective Progress Note Date: 12/11/20 Acute hypoxic respiratory failure secondary to CoVID 19 pneumonia 60-year-old here patient hospitalized for COVID 19 related pneumonia and hypoxemia. The patient was found to have a low oxygen saturation. She was diagnosed having COVID 19 on 11/20/2020. However, her symptoms started approximately a week prior to that as the patient started having generalized weakness, fever and chills. In the hospital at [facility], she was found to be hypoxic and she was placed on 15 L of oxygen by nasal cannula. She was started on Decadron and following that she was transferred to [facility] on 11/20/2020 for further evaluation. On today's evaluation the patient remains on 15 L of oxygen by nasal cannula. Laboratory markers show a LDH of 1482, her CRP is 239, her pro-calcitonin level is at 1.28, her white cell count is at 4.5 and the patient has a lymphopenia with a lymphocyte count of 0.7. The electrolytes all within normal limits. Renal function is within normal limits. Glucose slightly elevated at 235. The chest x-ray is showing bilateral pulmonary infiltrates mainly involving the left lung and or significantly in the right upper lobe area. The patient is known to have COPD/asthma. The patient is also has history of hypothyroidism, hyperlipidemia and gout. She has history of hiatal hernia.. She is on Decadron 6 mg by mouth daily. She is on no DVT prophylaxis is receiving 40 mg of Lovenox her d-dimer level is at 0.36. On 11/22/2020 patient seen in follow-up in intensive care unit. She is awake and alert, oriented 3, she is currently on BiPAP support with pressures of 14/5 and FiO2 of 100%, and her SpO2 is a 99%. Patient states she doesn't feel significantly more short of breath, however she tachypneic with a respiratory rate of 28 BPM, she has been febrile T-max of 10 1F, her pro-calcitonin came back elevated at 1.28 suggesting possibility of bacterial infection. Today we started her on Remdesivir, today's date to off treatment, her inflammatory markers are trending up, LDH is up to 1940, CRP is 143.6, d-dimer is 0.78, and is on prophylactic dose of Lovenox 40 mg daily, electrolytes and renal profile are unremarkable. O'Christiano is 9.2, hemoglobin is 11, platelet count is 322, neutrophils is 8.3, and in lymphocyte count is 0.5. Patient is on day 2 of high-dose IV steroids 20 mg daily. Patient is awake and alert, oriented 3, yesterday she reversed her CODE STATUS, from DO NOT RESUSCITATE to full code. On 11/23/2020 patient seen in follow-up in the intensive care unit, she remains on BiPAP support, has been very much dependent on it, and he desaturates rapidly even for short periods when the BiPAP mask is removed to give the patient oral medications, current BiPAP settings of 14/60 and FiO2 of 100%, her pulse ox is 93%. Awake and alert, she is oriented 3, she states her breathing is stable as long as she does not move and lays very still in bed. She is complaining of a dry cough, no chest discomfort, no palpitations. She is in sinus mechanism, bradycardic with a rate of 55 BPM, blood pressure is 116/66, not on any vasopressor support, her current IV fluids are 0.9 normal saline at a rate of 20 ML per hour. Patient's pattern has improved, T-max in last 24 hours 99.5F. Urinalysis was sent and shows no signs of infection, blood cultures will be sent today, last pro calcitonin yesterday was 1.29, repeat pro calcitonin has been sent and pending at this time, patient was empirically placed on azithromycin and Rocephin. Maintenance on high-dose IV steroids currently with Decadron 20 mg IV on the daily basis. Absent been reviewed, her d-dimer has trended up, and is at 5.13 today, her Lovenox dose will be adjusted 0.5 mg/kg of body weight twice daily, LDH is down slightly, 1670, CRP is relatively stable at 140.5. El ectronic are within normal limits, patient is mildly prerenal, BUN is 30 creatinine 0.74, she also remains on oral dose of Lasix and she has had very limited oral intake. She has only been able to take one or 2 sips of oral liquids and she states things do not taste right. White blood cell count is 6.5, hemoglobin is 10.5. His chest x-ray has been reviewed and diffuse increasing groundglass opacities. I discussed the patient's CODE STATUS with her, and she is agreeable to CPR, intubation, defibrillation, CODE STATUS will be changed to full code On 12/04/2020 patient seen in follow-up in the intensive care unit, she is off the BiPAP support, and currently on high flow oxygen per Airvo 60 L/m and FiO2 of 70%, with a pulse ox between 92-94%, she is breathing comfortably, denies any chest discomfort, she sitting up in a chair, she looks comfortable, she has had no fever or chills. Today's chest x-ray shows coarse infiltrates bilaterally with slight interval progression. Patient is tolerating oral diet. She is off the TPN. She is on 0.9 normal saline at a rate of 10 ML per hour, today's labs have been reviewed, d-dimer is improved from a few days back and is down to 6.70, patient is on Lovenox 40 mg twice a day, white blood cell count is 9.1, hemoglobin is 10.8, sodium is 134, potassium is 4.4, chloride is 96, CO2 is 34, B1 is 20, creatinine 0.64 LDH is 1660, CRP is less than 5. Patient remains on daily dose of IV Lasix, colchicine, Pepcid 20 mg twice a day, bronchodilators, IV Solu-Medrol 40 mg every 8 hours On 12/05/2020 patient is seen in follow-up in the intensive care unit, she remains on high flow oxygen per Airvo at 60 L/m and FiO2 of 75%, in the night her FiO2 have to be bumped up a little bit from a 70% because of an episode of desaturation. She also required 4 hours on BiPAP support. However this morning patient appears to be calm and comfortable, sitting up in the recliner, in her pulse ox on the Airvo at previously mentioned settings is 98-100%, she is breathing comfortaby. Patient is awake and alert, oriented 3, no altered mentation, she is in sinus mechanism, she is on 0.9 at 10 ML per hour, no other drips, she's been afebrile, vital signs have been stable. Chest x-ray has been reviewed, and it shows patchy perihilar and basilar infiltrates persistence without significant change. She remains on once daily dose of Lasix, and she is in -1090 mL fluid balance over the last 24 hours. She has been tolerating oral intake, no nausea vomiting or abdominal pain. Currently patient remains on IV steroids with Solu-Medrol 40 mg every 8 hours, colchicine, vitamin C D and zinc, melatonin, and bronchodilators. Today's d-dimer is 7.58. And patient remains on Lovenox at 40 mg twice daily which is 0.5 mg/kg of body weight twice daily. Patient also continues on Zosyn for empiric antibiotic coverage. Blood cultures have shown no growth. Follow-up LDH is trending down on today's labs and is down to 1370, CRP is less than 5. On 12/06/2020 patient seen in follow-up in intensive care unit, patient remains on Airvo at 60L and Fio2 75%. Satting between 88-91%, did require BiPap support last night for a few hours, currently back on Airvo. Patient is breathing comfortably, no acute distress, no chest discomfort. No fever, or chills. P atient is currently on 0.9 NS at 10 ml/hr. patient remains on Lasix, she is in - 1.8 L fluid balance over the last 24 hours, however her chest x-ray shows worsening airspace disease, and pulmonary edema. Blood pressure has been stable, today's labs have been reviewed, showing serum sodium of 135, potassium is 4.3, chloride is 97, CO2 is 24, B1 is 24, creatinine 0.64. Proalcitonin level came back negative, we can stop the Zosyn cultures are negative. No fever or chills. No nausea vomiting diarrhea. On 12/07/2020 patient seen in follow-up in intensive care unit, she remains on high flow oxygen per Airvo at 60 L, and FiO2 of 70%, and her pulse ox is 90-91%, looks fairly comfortable, she is sitting up on the edge of the bed, appears to be in no acute distress, she is getting ready to eat breakfast this morning, she has been afebrile, vital signs have been stable. her chest x-ray today showed diffuse increased lung markings more focal in the right lower lobe, patient has received increased dose of Lasix, and her chest x-ray shows better aeration compared to yesterday's exam.today's labs have been reviewed, her d-dimer is trending down, down to 5.40, white count is 10.2, hemoglobin is 11.4, sodium is 134, potassium is 3.3, chloride 96, CO2 is 23, BUN is 26 creatinine 0.64. LDH is 1300, CRP is less than 5, blood culture has shown no growth. The patient is seen today 12/08/2020 in follow-up in the intensive care unit. She is awake and alert. She is still requiring AirVo high flow oxygen at 60 L/m and 70% FiO2 to maintain O2 saturations in the 90s. No current IV fluids. She is receiving her second unit of convalescent plasma. Chest x-ray continues to show bilateral patchy perihilar and basilar infiltrates. Not much improvement. White count 9.9. Hemoglobin 11.7. Platelet count 63,000. D-dimer 3.60. Sodium 133. Potassium 3.3. Bicarb 36. Creatinine 0.63. AST 24. ALT 46. LDH 1101. C-reactive protein less than 5.0. She remains on IV Solu-Medrol, bronchodilators, Lovenox, colchicine, Pepcid, vitamin supplements. She's also been diuresed with Lasix 40 mg IV every 12 hours. The patient is seen today 12/09/2020 in follow-up in the intensive care unit. She is currently sitting up in a chair at the bedside. Awake and alert in no acute distress. Continues to require AirVo high flow oxygen at 60 L/m at 66% FiO2. She is able to tolerate a bit more activity without significant desaturations. The amount of time that it takes for her to recover is getting less. Improving in that regard. Chest x-ray still revealing bilateral scattered infiltrates. Currently no IV fluids running. Appetite is improving. White count 10.7. Hemoglobin 11.7. Platelet count dropped to 35,000. Lymphocytes 0.3. D-dimer 3.3. Sodium 132. Potassium 3.9. Creatinine 0.63. Bicarb 32. LDH 1080. C-reactive protein less than 5. She remains on IV Solu- Medrol, bronchodilators, Lovenox, colchicine, Pepcid, vitamin supplements. Diuresed with Lasix 40 mg IV every 12 hours. She remains a negative balance. The patient is seen today 12/10/2020 in follow-up in the intensive care unit. He is currently resting comfortably in bed. She remains awake and alert in no acute distress. Her oxygen requirements continued to improve slowly. She is on the AirVo at 55 L/m and 55% FiO2. No IV fluids. Her appetite has been fair. White count 9.5. Hemoglobin 12.4. Platelet count 15,000. D-dimer 2.99. Sodium 134. Potassium 3.2. Creatinine 0.61. She remains off Lovenox. HIT labs are pending. She remains on IV Solu-Medrol, bronchodilators, colchicine, Pepcid, vitamin supplements, IV diuretics. She remains a negative balance. On 12/11/2020 seeing the patient for a follow-up. She is sitting at edge of the bed. She is on high flow oxygen 50 L with an FiO2 of 50%. The patient has shown some limited improvement in her oxygenation over the past 2 weeks. The patient is currently on IV Solu-Medrol, colchicine, Pepcid, multivitamins. Of concern is the platelet drop that the patient encountered. There has been significant drop in the platelet count and patient is having some limited epistaxis. Monitoring the platelet count showed that the platelet drop from 119 down to 9 over the past 4 days. The white cell count remained stable. The hemoglobin also remained stable. As such, this is a selective thrombocytopenia. Could be related to colchicine which can cause thrombocytopenia. Lovenox was discontinued. Hit antibodies were also sent. Her d-dimer is down to 2.9. No skin bruises. No GI bleeding. Liver function tests are within normal limits. Renal function test is within normal limits. Chest x-ray showing stable bilateral pulmonary infiltrates. No recent coagulation profile ordered. Objective - Vital Signs Vital signs: Vital Signs Temp 98.3 F 12/11/20 04:00 Pulse 90 12/11/20 07:00 Resp 24 12/11/20 07:00 BP 120/79 12/11/20 07:00 Pulse Ox 91 L 12/11/20 07:00 Intake & Output 12/10/20 12/11/20 12/11/20 18:59 06:59 18:59 Intake Total 250 Output Total 1360 1185 40 Balance -1360 -935 -40 Weight 74.7 kg Intake: Oral 250 Output: Urine 1360 1185 40 Other: Voiding Method Indwelling Catheter Indwelling Catheter - Exam GENERAL EXAM: Alert, pleasant, 60-year-old female patient on Airvo at 50 L/m, and FiO2 of 50% with O2 saturation 88-90%, comfortable in no apparent distress. HEAD: Normocephalic/atraumatic. EYES: Normal reaction of pupils, equal size. Conjunctiva pink, sclera white. NOSE: Clear with pink turbinates. THROAT: No erythema or exudates. NECK: No masses, no JVD, no thyroid enlargement, no adenopathy. CHEST: No chest wall deformity. Symmetrical expansion. LUNGS: Equal air entry with diffuse scattered ronchi, crackles in the bases CVS: Regular rate and rhythm, normal S1 and S2, no gallops, no murmurs, no rubs ABDOMEN: Soft, nontender. No hepatosplenomegaly, normal bowel sounds, no guarding or rigidity. EXTREMITIES: No clubbing, no edema, no cyanosis, 2+ pulses and upper and lower extremities. MUSCULOSKELETAL: Muscle strength and tone normal. SPINE: No scoliosis or deformity SKIN: No rashes CENTRAL NERVOUS SYSTEM: No focal deficits, tone is normal in all 4 extremities. PSYCHIATRIC: Alert and oriented -3. Appropriate affect. Intact judgment and insight. - Labs CBC & Chem 7: 12/11/20 04:30 12/11/20 04:30 Labs: Abnormal Lab Results - Last 24 Hours (Table) 12/10/20 12/10/20 12/11/20 Range/Units 11:45 20:05 04:30 WBC 11.1 H (3.8-10.6) k/uL RDW 17.0 H (11.5-15.5) % Plt Count 9 L* (150-450) k/uL Neutrophils # 10.4 H (1.3-7.7) k/uL Lymphocytes # 0.3 L (1.0-4.8) k/uL Sodium (137-145) mmol/L Chloride (98-107) mmol/L Carbon Dioxide (22-30) mmol/L BUN (7-17) mg/dL Glucose (74-99) mg/dL POC Glucose (mg/dL) 114 H 170 H (75-99) mg/dL Magnesium (1.6-2.3) mg/dL ALT (4-34) U/L Total Protein (6.3-8.2) g/dL 12/11/20 12/11/20 Range/Units 04:30 06:37 WBC (3.8-10.6) k/uL RDW (11.5-15.5) % Plt Count (150-450) k/uL Neutrophils # (1.3-7.7) k/uL Lymphocytes # (1.0-4.8) k/uL Sodium 131 L (137-145) mmol/L Chloride 91 L (98-107) mmol/L Carbon Dioxide 33 H (22-30) mmol/L BUN 31 H (7-17) mg/dL Glucose 143 H (74-99) mg/dL POC Glucose (mg/dL) 133 H (75-99) mg/dL Magnesium 2.4 H (1.6-2.3) mg/dL ALT 47 H (4-34) U/L Total Protein 5.9 L (6.3-8.2) g/dL Assessment and Plan Plan: 1 Acute Covid 19 related pneumonia with bilateral pulmonary infiltrates most significant in the right upper lobe and the left lung seems to be diffusely infiltrated 2 Acute severe hypoxic respiratory failure, slow to progress. Currently AirVo at 50 L and 50% FiO2 3 Increased pro-calcitonin ruled out possibility of bacterial infection, both mycoplasma titers were low, Legionella urine antigen was negative, blood cu ltures have shown no growth. 4 Chronic persistent bronchial asthma with an FEV1 of 82-87% on outpatient basis maintained on Symbicort 5 Steroid-induced hyperglycemia, improved 6 Hypertension 7 Hypothyroidism 8 Osteoarthritis and gout 9 Peripheral neuropathy involving lower extremities 10 Peripheral vascular disease 11 Chronic normocytic anemia 12 More than [id number] smoking history patient is currently an ex-smoker 13 Hiatal hernia with reflux 14 Thrombocytopenia, probably drug induced could be related to colchicine although the possibility of other drugs or even consumptive thrombocytopenia related to viral infection or even HIT Plan: Immediate platelet transfusion with a platelet concentrate Stop colchicine immediately Fall precautions Watch for any signs of GI bleed as the patient is at high risk of spontaneous bleeding Consults hematology Check PT/PTT INR and fibrinogen and d-dimer Awaiting heparin-induced thrombocytopenia antibodies Titrate down the FiO2 as tolerated Continue incentive spirometry Continue to monitor her closely here in the ICU We will continue to follow and make further recommendations based on her clinical status
[2020-12-11 11:34] LABS: Glucose,Whole Blood 112 mg/dL (75-99)
[2020-12-11 12:48] LABS: D-Dimer 2.43 mg/L FEU (<0.60); Prothrombin Time 10.5 sec (9.0-12.0)
[2020-12-11 12:58] LABS: Partial Thromboplastin Time 21.5 sec (22.0-30.0)
--- NOTE | 2020-12-11 14:45 | P.CONS ---
History of Present Illness - Reason for Consult Consult date: 12/11/20 thrombocytopenia Requesting physician: Cate Madsen - Chief Complaint covid 19 - History of Present Illness We have been asked to see pt for sudden onset thrombocytopenia, plt 9000 today, on chart review there has been 50% decline in plt daily over the last 4 days. P t denies any Hx of low blood counts, ITP, cancer/treatment for cancer, bleeding, unusual bruising. She has been exposed to multiple medications, this is her 21st day inpt with covid diagnosis. She has c/o terrible soreness in the mouth, dryness, mild sore throat, her breathing is stable, no hemoptysis, chest pain, appetite is fair, no feeling of nausea, no urinary c/o other then mild irritation from fowler. Review of Systems 14 point ROS is neg except as stated in HPI Past Medical History Past Medical History: Asthma, COPD, GERD/Reflux, Hyperlipidemia, Osteoarthritis (OA), Pneumonia, Thyroid Disorder, Vascular Disorder Additional Past Medical History / Comment(s): Pt recently admitted to [facility] on 07/22/19 with R calf infection/cellulitis/possible abscess with sepsis/random elevated blood sugar. Other hx: Bronchitis, arthritis in multiple joints, gout in several joints, DJD, neuropathy bilateral feet, fluid retention, PVD, hypothyroid, hypoglycemia, hypokalemia, normocytic anemia. ex smoker- smoked 2ppd for 18 years History of Any Multi-Drug Resistant Organisms: None Reported Past Surgical History: Adenoidectomy, Section, Hysterectomy, Orthopedic Surgery, Tonsillectomy Additional Past Surgical History / Comment(s): L knee arthroscopy, R hand tendon repair, bilateral carpal tunnel releases, EGDs, colonoscopy, hemorrhoidectomy, varicose vein stripping and pt states a larger vein was "closed". Past Anesthesia/Blood Transfusion Reactions: Motion Sickness, Postoperative Naus ea & Vomiting (PONV) Past Psychological History: No Psychological Hx Reported Additional Psychological History / Comment(s): Pt resides with her spouse. She uses no assistive device. Pt drives. Smoking Status: Former smoker Past Alcohol Use History: None Reported Additional Past Alcohol Use History / Comment(s): QUIT SMOKING IN 2006, STARTED SMOKING AGE 13- SMOKED 2PPD Past Drug Use History: None Reported - Past Family History Father Family Medical History: Cancer Additional Family Medical History / Comment(s): LUNG CANCER Mother Family Medical History: Cancer Additional Family Medical History / Comment(s): BLADDER CANCER Medications and Allergies Home Medications Medication Instructions Recorded Confirmed Type Allopurinol [Zyloprim] 600 mg PO QAM 04/13/15 11/20/20 History Budesonide/Formoterol Fumarate 2 puff INHALATION RT-BID 04/13/15 11/20/20 History [Symbicort 160-4.5 Mcg Inhaler] Colchicine [Colcrys] 0.6 mg PO DAILY 04/13/15 11/20/20 History Furosemide [Lasix] 40 mg PO BID 04/13/15 11/20/20 History Gabapentin [Neurontin] 300 mg PO HS 04/13/15 11/20/20 History Meloxicam [Mobic] 15 mg PO QAM 04/13/15 11/20/20 History Montelukast Sodium [Singulair] 10 mg PO HS 04/13/15 11/20/20 History Omeprazole [PriLOSEC] 20 mg PO BID 04/13/15 11/20/20 History Sucralfate [Carafate] 1 gm PO QID 04/13/15 11/20/20 History Theophylline 12 Hour [Ishan-Dur] 300 mg PO BID 04/13/15 11/20/20 History Pramipexole [Mirapex] 0.5 mg PO HS 07/20/18 11/20/20 History Levalbuterol Hfa Inhaler [Xopenex 4 puff INHALATION RT-Q6H PRN 07/22/19 11/20/20 History Hfa Inhaler] Gabapentin [Neurontin] 100 mg PO BID@0800,1200 07/27/19 11/20/20 History Effer-K 25meq 25 meq PO QID 11/20/20 11/20/20 History Ergocalciferol (Vitamin D2) 1,250 mcg PO Q14D 11/20/20 11/20/20 History [Vitamin D2 (50,000 units)] Ipratropium-Albuterol Nebulize 3 ml INHALATION RT-QID 11/20/20 11/20/20 History [Duoneb 0.5 mg-3 mg/3 ml Soln] Levothyroxine Sodium [Euthyrox] 75 mcg PO DAILY 11/20/20 11/20/20 History Loratadine [Claritin] 10 mg PO DAILY 11/20/20 11/20/20 History Simvastatin [Zocor] 80 mg PO HS 11/20/20 11/20/20 History Allergies Allergy/AdvReac Type Severity Reaction Status Date / Time milk Allergy Dyspnea,swe Verified 11/20/20 09:03 lling aspirin AdvReac Abdominal Verified 11/20/20 09:03 Pain, headache milk proteins Allergy Dyspnea Uncoded 11/23/20 20:05 Physical Exam Vitals: Vital Signs Temp Pulse Resp BP Pulse Ox 12/11/20 14:00 93 22 109/70 79 L 12/11/20 13:21 98.7 F 92 24 109/70 92 L 12/11/20 13:00 93 26 H 117/83 96 12/11/20 12:36 98.5 F 96 24 117/83 94 L 12/11/20 12:26 98.5 F 97 22 115/75 94 L 12/11/20 12:00 98.5 F 97 25 H 108/80 91 L 12/11/20 11:00 96 28 H 110/86 93 L 12/11/20 10:00 108 H 28 H 115/88 92 L 12/11/20 09:00 125 H 22 102/76 92 L 12/11/20 08:00 98.3 F 114 H 26 H 118/71 94 L 12/11/20 07:00 90 24 120/79 91 L 12/11/20 06:00 83 21 119/74 91 L 12/11/20 05:00 90 20 108/69 91 L 12/11/20 04:00 98.3 F 86 19 104/74 90 L 12/11/20 03:00 85 18 102/77 87 L 12/11/20 02:00 80 19 106/70 92 L 12/11/20 01:00 73 16 98/69 92 L 12/11/20 00:13 92 L 12/11/20 00:00 79 19 106/69 96 12/10/20 23:00 82 18 103/77 98 12/10/20 22:00 77 17 111/83 97 12/10/20 21:00 81 18 105/72 97 12/10/20 20:00 98.5 F 88 23 114/72 93 L 12/10/20 19:38 97 12/10/20 19:00 101 H 30 H 108/66 95 12/10/20 18:00 86 28 H 107/74 96 12/10/20 17:00 81 24 110/77 99 12/10/20 16:00 97.7 F 84 24 113/75 98 12/10/20 15:00 98 33 H 103/67 90 L 12/10/20 14:53 92 L Intake and Output 12/10/20 12/11/20 12/11/20 22:59 06:59 14:59 Intake Total 250 256 Output Total 5232 446 6973 [facility] -[phone] Intake: Oral 250 Blood Product 256 Platelet Pheresis Pas 256 Psoralen Unit [id number] Output: Urine 0973 195 0149 Other: Voiding Method Indwelling Catheter Indwelling Catheter Indwelling Catheter Weight 74.7 kg - Constitutional General appearance: average body habitus, cooperative, mild distress - EENT tongue ulcerations Eyes: anicteric sclerae, EOMI ENT: hearing grossly normal, pharyngeal erythema, thrush - Neck Neck: no lymphadenopathy - Respiratory Respiratory: bilateral: diminished - Cardiovascular Rhythm: regular Heart sounds: normal: S1, S2 Abnormal Heart Sounds: no systolic murmur, no diastolic murmur, no rub, no S3 Gallop, no S4 Gallop, no click, no other leg Peripheral Edema: bilateral: Trace - Gastrointestinal General gastrointestinal: normal bowel sounds, soft - Neurologic Neurologic: CNII-XII intact - Musculoskeletal Musculoskeletal: generalized weakness - Psychiatric Psychiatric: A&O x's 3, appropriate affect, intact judgment & insight Results CBC & Chem 7: 12/11/20 04:30 12/11/20 04:30 Labs: Abnormal Lab Results - Last 24 Hours (Table) 12/10/20 12/11/20 12/11/20 Range/Units 20:05 04:30 04:30 WBC 11.1 H (3.8-10.6) k/uL RDW 17.0 H (11.5-15.5) % Plt Count 9 L* (150-450) k/uL Neutrophils # 10.4 H (1.3-7.7) k/uL Lymphocytes # 0.3 L (1.0-4.8) k/uL APTT (22.0-30.0) sec Fibrinogen (200-500) mg/dL D-Dimer (<0.60) mg/L FEU Sodium 131 L (137-145) mmol/L Chloride 91 L (98-107) mmol/L Carbon Dioxide 33 H (22-30) mmol/L BUN 31 H (7-17) mg/dL Glucose 143 H (74-99) mg/dL POC Glucose (mg/dL) 170 H (75-99) mg/dL Magnesium 2.4 H (1.6-2.3) mg/dL ALT 47 H (4-34) U/L Total Protein 5.9 L (6.3-8.2) g/dL 12/11/20 12/11/20 12/11/20 Range/Units 06:37 11:30 11:33 WBC (3.8-10.6) k/uL RDW (11.5-15.5) % Plt Count (150-450) k/uL Neutrophils # (1.3-7.7) k/uL Lymphocytes # (1.0-4.8) k/uL APTT 21.5 L (22.0-30.0) sec Fibrinogen 171 L (200-500) mg/dL D-Dimer 2.43 H (<0.60) mg/L FEU Sodium (137-145) mmol/L Chloride (98-107) mmol/L Carbon Dioxide (22-30) mmol/L BUN (7-17) mg/dL Glucose (74-99) mg/dL POC Glucose (mg/dL) 133 H 112 H (75-99) mg/dL Magnesium (1.6-2.3) mg/dL ALT (4-34) U/L Total Protein (6.3-8.2) g/dL Assessment and Plan (1) Thrombocytopenia Narrative/Plan: New onset in the setting of acute illness. DDx being worked up. Supportive care for now with close monitoring of CBC. HIT ab neg LFTs are ok Fibrinogen is 171 today, coags WNL. Pt has received 2 units FFP. She is on steroids 40mg Q 6 currently. 1 unit of platelets already ordered. If pt has a decent response to plt infusion then less likely ITP Med list reviewed. Meds have been already adjusted in regards to platelet toxicity Monitor CBC daily. Transfuse with platelets to keep >10,000. Literature does discuss keeping plt >20,000 in the setting of acute illness. Thankfully pt has no s/s bleeding currently, coags are WNL. We will cont to follow with you and order additional studies as appropriate. Current Visit: Yes Status: Acute Priority: High Code(s): D69.6 - THROMBOCYTOPENIA, UNSPECIFIED SNOMED Code(s): 416006429 (2) Mucositis Narrative/Plan: Severe oral irritation. Pt is on zinc and vit C, also nystatin. Have ordered kools and salt and soda. Current Visit: Yes Status: Acute Priority: High Code(s): K12.30 - ORAL MUCOSITIS (ULCERATIVE), UNSPECIFIED SNOMED Code(s): 90421470
[2020-12-11] MEDS: MAG HYDROX/AL HYDROX/SIMETH 30 ML, LIDOCAINE VISCOUS 30 ML, diphenhydrAMINE ELIXIR 75 M... PO SCH ×8 (15:42→20:31)
[2020-12-11] MEDS: SALT AND SODA MOUTHWASH 1,000 ML PO SCH ×3 (15:45→23:10)
[2020-12-11 16:42] LABS: Glucose,Whole Blood 107 mg/dL (75-99)
[2020-12-11 19:36] LABS: Glucose,Whole Blood 174 mg/dL (75-99)
[2020-12-11] MEDS: ATORVASTATIN 40 MG TAB PO SCH (20:31)
[2020-12-11] MEDS: MELATONIN 3 MG TABLET PO SCH (20:31)
[2020-12-11] MEDS: MONTELUKAST 10 MG TAB PO SCH (20:31)
[2020-12-11] MEDS: GABAPENTIN 300 MG CAP PO SCH (20:31)
[2020-12-11] MEDS: THEOPHYLLINE 24 HOUR 300 MG CAP.ER.24H PO SCH (20:32)
[2020-12-11] MEDS: PRAMIPEXOLE 0.5 MG TAB PO SCH (20:33)
[2020-12-12] MEDS: LEVOTHYROXINE 75 MCG TAB PO SCH (06:04)
[2020-12-12] MEDS: SALT AND SODA MOUTHWASH 1,000 ML PO SCH ×4 (06:04→21:37)
[2020-12-12 06:22] LABS: Anisocytosis Slight; Basophils % (A) 0 %; Eosinophils % (A) 0 %; HCT 37.3 % (34.0-46.0); HGB 12.1 gm/dL (11.4-16.0); Lymphocytes # (A) 0.2 k/uL (1.0-4.8); Lymphocytes % (A) 2 %; MCH 29.1 pg (25.0-35.0); MCHC 32.5 g/dL (31.0-37.0); MCV 89.5 fL (80.0-100.0); Mean Platelet Volume 6.9; Monocytes # (A) 0.3 k/uL (0-1.0); Monocytes % (A) 3 %; Neutrophils # (A) 9.5 k/uL (1.3-7.7); Neutrophils % (A) 94 %; RBC 4.17 m/uL (3.80-5.40); RDW 17.2 % (11.5-15.5); WBC 10.1 k/uL (3.8-10.6)
[2020-12-12 06:25] LABS: Platelet Count 6 k/uL (150-450)
[2020-12-12 06:30] LABS: ALT 44 U/L (4-34); AST 25 U/L (14-36); African American GFR (CKD) >90 (>60 ml/min/1.73 sqM); Albumin 3.6 g/dL (3.5-5.0); Alkaline Phosphatase 76 U/L (38-126); Anion Gap 4 mmol/L; Blood Urea Nitrogen 23 mg/dL (7-17); C Reactive Protein <5.0 mg/L (<10.0); Calcium 9.4 mg/dL (8.4-10.2); Carbon Dioxide 35 mmol/L (22-30); Chloride 89 mmol/L (98-107); Creatine Kinase 32 U/L (30-135); Glucose 116 mg/dL (74-99); LDH 950 U/L (313-618); Non-African American GFR(CKD) >90 (>60 ml/min/1.73 sqM); Potassium 3.4 mmol/L (3.5-5.1); Sodium 128 mmol/L (137-145); Total Protein 5.9 g/dL (6.3-8.2)
--- NOTE | 2020-12-12 06:36 | XR ---
EXAMINATION TYPE: XR chest 1V portable DATE OF EXAM: 12/12/2020 CLINICAL HISTORY: Difficulty breathing progress study. TECHNIQUE: Single AP portable upright view of the chest is obtained. COMPARISON: Chest x-ray from 3 days earlier and older studies. FINDINGS: Stable left-sided PICC line. Persistent low lung volumes with bilateral increased opacitie s. Stable mild cardiomegaly. Osseous structures are intact. IMPRESSION: Low lung volumes and mild cardiomegaly with bilateral multifocal acute infiltrates consis tent with covid 19 infection. No significant change from most recent x-ray.
[2020-12-12] MEDS: INSULIN ASPART (NovoLOG) 100 UNIT/ML VIAL SQ SCH ×4 (06:50→22:15)
[2020-12-12] MEDS: POTASSIUM CHLORIDE ER 20 MEQ TAB.ER PO SCH ×4 (07:00→21:32)
[2020-12-12] MEDS: ALBUTEROL HFA INHALER INHALATION SCH ×4 (07:48→21:04)
[2020-12-12] MEDS: SYMBICORT 160-4.5 MCG INHALER INHALATION SCH ×2 (07:48→21:04)
[2020-12-12] MEDS: TIOTROPIUM 2.5 MCG INHALER INHALATION SCH (07:48)
[2020-12-12] MEDS: GABAPENTIN 100 MG CAP PO SCH ×2 (08:34→11:50)
[2020-12-12] MEDS: FAMOTIDINE 20 MG TAB PO SCH (08:35)
[2020-12-12] MEDS: methylPREDNISolone SOD SUCCI 40 MG/ML 1 ML VIAL IV SCH (08:35)
[2020-12-12] MEDS: FUROSEMIDE 10 MG/ML 4 ML VIAL IV SCH (08:35)
[2020-12-12] MEDS: SUCRALFATE 1 GM TAB PO SCH ×4 (08:35→21:32)
[2020-12-12] MEDS: ZINC SULFATE 220 MG CAP PO SCH (08:35)
[2020-12-12] MEDS: ASCORBIC ACID 500 MG TAB PO SCH (08:35)
[2020-12-12] MEDS: NYSTATIN 100,000 UNIT/ML SUSP 500,000 UNIT/5 ML CUP PO SCH ×4 (08:36→21:32)
[2020-12-12] MEDS: MAG HYDROX/AL HYDROX/SIMETH 30 ML, LIDOCAINE VISCOUS 30 ML, diphenhydrAMINE ELIXIR 75 M... PO SCH ×12 (08:37→21:33)
--- NOTE | 2020-12-12 09:43 | P.PN ---
Subjective Progress Note Date: 12/12/20 Acute hypoxic respiratory failure secondary to CoVID 19 pneumonia 60-year-old here patient hospitalized for COVID 19 related pneumonia and hypoxemia. The patient was found to have a low oxygen saturation. She was diagnosed having COVID 19 on 11/20/2020. However, her symptoms started approximately a week prior to that as the patient started having generalized weakness, fever and chills. In the hospital at [facility], she was found to be hypoxic and she was placed on 15 L of oxygen by nasal cannula. She was started on Decadron and following that she was transferred to [facility] on 11/20/2020 for further evaluation. On today's evaluation the patient remains on 15 L of oxygen by nasal cannula. Laboratory markers show a LDH of 1482, her CRP is 239, her pro-calcitonin level is at 1.28, her white cell count is at 4.5 and the patient has a lymphopenia with a lymphocyte count of 0.7. The electrolytes all within normal limits. Renal function is within normal limits. Glucose slightly elevated at 235. The chest x-ray is showing bilateral pulmonary infiltrates mainly involving the left lung and or significantly in the right upper lobe area. The patient is known to have COPD/asthma. The patient is also has history of hypothyroidism, hyperlipidemia and gout. She has history of hiatal hernia.. She is on Decadron 6 mg by mouth daily. She is on no DVT prophylaxis is receiving 40 mg of Lovenox her d-dimer level is at 0.36. On 11/22/2020 patient seen in follow-up in intensive care unit. She is awake and alert, oriented 3, she is currently on BiPAP support with pressures of 14/5 and FiO2 of 100%, and her SpO2 is a 99%. Patient states she doesn't feel significantly more short of breath, however she tachypneic with a respiratory rate of 28 BPM, she has been febrile T-max of 10 1F, her pro-calcitonin came back elevated at 1.28 suggesting possibility of bacterial infection. Today we started her on Remdesivir, today's date to off treatment, her inflammatory markers are trending up, LDH is up to 1940, CRP is 143.6, d-dimer is 0.78, and is on prophylactic dose of Lovenox 40 mg daily, electrolytes and renal profile are unremarkable. O'Christiano is 9.2, hemoglobin is 11, platelet count is 322, neutrophils is 8.3, and in lymphocyte count is 0.5. Patient is on day 2 of high-dose IV steroids 20 mg daily. Patient is awake and alert, oriented 3, yesterday she reversed her CODE STATUS, from DO NOT RESUSCITATE to full code. On 11/23/2020 patient seen in follow-up in the intensive care unit, she remains on BiPAP support, has been very much dependent on it, and he desaturates rapidly even for short periods when the BiPAP mask is removed to give the patient oral medications, current BiPAP settings of 14/60 and FiO2 of 100%, her pulse ox is 93%. Awake and alert, she is oriented 3, she states her breathing is stable as long as she does not move and lays very still in bed. She is complaining of a dry cough, no chest discomfort, no palpitations. She is in sinus mechanism, bradycardic with a rate of 55 BPM, blood pressure is 116/66, not on any vasopressor support, her current IV fluids are 0.9 normal saline at a rate of 20 ML per hour. Patient's pattern has improved, T-max in last 24 hours 99.5F. Urinalysis was sent and shows no signs of infection, blood cultures will be sent today, last pro calcitonin yesterday was 1.29, repeat pro calcitonin has been sent and pending at this time, patient was empirically placed on azithromycin and Rocephin. Maintenance on high-dose IV steroids currently with Decadron 20 mg IV on the daily basis. Absent been reviewed, her d-dimer has trended up, and is at 5.13 today, her Lovenox dose will be adjusted 0.5 mg/kg of body weight twice daily, LDH is down slightly, 1670, CRP is relatively stable at 140.5. El ectronic are within normal limits, patient is mildly prerenal, BUN is 30 creatinine 0.74, she also remains on oral dose of Lasix and she has had very limited oral intake. She has only been able to take one or 2 sips of oral liquids and she states things do not taste right. White blood cell count is 6.5, hemoglobin is 10.5. His chest x-ray has been reviewed and diffuse increasing groundglass opacities. I discussed the patient's CODE STATUS with her, and she is agreeable to CPR, intubation, defibrillation, CODE STATUS will be changed to full code On 12/04/2020 patient seen in follow-up in the intensive care unit, she is off the BiPAP support, and currently on high flow oxygen per Airvo 60 L/m and FiO2 of 70%, with a pulse ox between 92-94%, she is breathing comfortably, denies any chest discomfort, she sitting up in a chair, she looks comfortable, she has had no fever or chills. Today's chest x-ray shows coarse infiltrates bilaterally with slight interval progression. Patient is tolerating oral diet. She is off the TPN. She is on 0.9 normal saline at a rate of 10 ML per hour, today's labs have been reviewed, d-dimer is improved from a few days back and is down to 6.70, patient is on Lovenox 40 mg twice a day, white blood cell count is 9.1, hemoglobin is 10.8, sodium is 134, potassium is 4.4, chloride is 96, CO2 is 34, B1 is 20, creatinine 0.64 LDH is 1660, CRP is less than 5. Patient remains on daily dose of IV Lasix, colchicine, Pepcid 20 mg twice a day, bronchodilators, IV Solu-Medrol 40 mg every 8 hours On 12/05/2020 patient is seen in follow-up in the intensive care unit, she remains on high flow oxygen per Airvo at 60 L/m and FiO2 of 75%, in the night her FiO2 have to be bumped up a little bit from a 70% because of an episode of desaturation. She also required 4 hours on BiPAP support. However this morning patient appears to be calm and comfortable, sitting up in the recliner, in her pulse ox on the Airvo at previously mentioned settings is 98-100%, she is breathing comfortaby. Patient is awake and alert, oriented 3, no altered mentation, she is in sinus mechanism, she is on 0.9 at 10 ML per hour, no other drips, she's been afebrile, vital signs have been stable. Chest x-ray has been reviewed, and it shows patchy perihilar and basilar infiltrates persistence without significant change. She remains on once daily dose of Lasix, and she is in -1090 mL fluid balance over the last 24 hours. She has been tolerating oral intake, no nausea vomiting or abdominal pain. Currently patient remains on IV steroids with Solu-Medrol 40 mg every 8 hours, colchicine, vitamin C D and zinc, melatonin, and bronchodilators. Today's d-dimer is 7.58. And patient remains on Lovenox at 40 mg twice daily which is 0.5 mg/kg of body weight twice daily. Patient also continues on Zosyn for empiric antibiotic coverage. Blood cultures have shown no growth. Follow-up LDH is trending down on today's labs and is down to 1370, CRP is less than 5. On 12/06/2020 patient seen in follow-up in intensive care unit, patient remains on Airvo at 60L and Fio2 75%. Satting between 88-91%, did require BiPap support last night for a few hours, currently back on Airvo. Patient is breathing comfortably, no acute distress, no chest discomfort. No fever, or chills. P atient is currently on 0.9 NS at 10 ml/hr. patient remains on Lasix, she is in - 1.8 L fluid balance over the last 24 hours, however her chest x-ray shows worsening airspace disease, and pulmonary edema. Blood pressure has been stable, today's labs have been reviewed, showing serum sodium of 135, potassium is 4.3, chloride is 97, CO2 is 24, B1 is 24, creatinine 0.64. Proalcitonin level came back negative, we can stop the Zosyn cultures are negative. No fever or chills. No nausea vomiting diarrhea. On 12/07/2020 patient seen in follow-up in intensive care unit, she remains on high flow oxygen per Airvo at 60 L, and FiO2 of 70%, and her pulse ox is 90-91%, looks fairly comfortable, she is sitting up on the edge of the bed, appears to be in no acute distress, she is getting ready to eat breakfast this morning, she has been afebrile, vital signs have been stable. her chest x-ray today showed diffuse increased lung markings more focal in the right lower lobe, patient has received increased dose of Lasix, and her chest x-ray shows better aeration compared to yesterday's exam.today's labs have been reviewed, her d-dimer is trending down, down to 5.40, white count is 10.2, hemoglobin is 11.4, sodium is 134, potassium is 3.3, chloride 96, CO2 is 23, BUN is 26 creatinine 0.64. LDH is 1300, CRP is less than 5, blood culture has shown no growth. The patient is seen today 12/08/2020 in follow-up in the intensive care unit. She is awake and alert. She is still requiring AirVo high flow oxygen at 60 L/m and 70% FiO2 to maintain O2 saturations in the 90s. No current IV fluids. She is receiving her second unit of convalescent plasma. Chest x-ray continues to show bilateral patchy perihilar and basilar infiltrates. Not much improvement. White count 9.9. Hemoglobin 11.7. Platelet count 63,000. D-dimer 3.60. Sodium 133. Potassium 3.3. Bicarb 36. Creatinine 0.63. AST 24. ALT 46. LDH 1101. C-reactive protein less than 5.0. She remains on IV Solu-Medrol, bronchodilators, Lovenox, colchicine, Pepcid, vitamin supplements. She's also been diuresed with Lasix 40 mg IV every 12 hours. The patient is seen today 12/09/2020 in follow-up in the intensive care unit. She is currently sitting up in a chair at the bedside. Awake and alert in no acute distress. Continues to require AirVo high flow oxygen at 60 L/m at 66% FiO2. She is able to tolerate a bit more activity without significant desaturations. The amount of time that it takes for her to recover is getting less. Improving in that regard. Chest x-ray still revealing bilateral scattered infiltrates. Currently no IV fluids running. Appetite is improving. White count 10.7. Hemoglobin 11.7. Platelet count dropped to 35,000. Lymphocytes 0.3. D-dimer 3.3. Sodium 132. Potassium 3.9. Creatinine 0.63. Bicarb 32. LDH 1080. C-reactive protein less than 5. She remains on IV Solu- Medrol, bronchodilators, Lovenox, colchicine, Pepcid, vitamin supplements. Diuresed with Lasix 40 mg IV every 12 hours. She remains a negative balance. The patient is seen today 12/10/2020 in follow-up in the intensive care unit. He is currently resting comfortably in bed. She remains awake and alert in no acute distress. Her oxygen requirements continued to improve slowly. She is on the AirVo at 55 L/m and 55% FiO2. No IV fluids. Her appetite has been fair. White count 9.5. Hemoglobin 12.4. Platelet count 15,000. D-dimer 2.99. Sodium 134. Potassium 3.2. Creatinine 0.61. She remains off Lovenox. HIT labs are pending. She remains on IV Solu-Medrol, bronchodilators, colchicine, Pepcid, vitamin supplements, IV diuretics. She remains a negative balance. On 12/11/2020 seeing the patient for a follow-up. She is sitting at edge of the bed. She is on high flow oxygen 50 L with an FiO2 of 50%. The patient has shown some limited improvement in her oxygenation over the past 2 weeks. The patient is currently on IV Solu-Medrol, colchicine, Pepcid, multivitamins. Of concern is the platelet drop that the patient encountered. There has been significant drop in the platelet count and patient is having some limited epistaxis. Monitoring the platelet count showed that the platelet drop from 119 down to 9 over the past 4 days. The white cell count remained stable. The hemoglobin also remained stable. As such, this is a selective thrombocytopenia. Could be related to colchicine which can cause thrombocytopenia. Lovenox was discontinued. Hit antibodies were also sent. Her d-dimer is down to 2.9. No skin bruises. No GI bleeding. Liver function tests are within normal limits. Renal function test is within normal limits. Chest x-ray showing stable bilateral pulmonary infiltrates. No recent coagulation profile ordered. On today's evaluation of 12/12/2020 the patient is stable. She is on high flow oxygen at 50 L with an FiO2 of 45%. Slightly compared to yesterday. Current pulse ox is 90%. The chest x-ray from today shows no major interval change and there is diffuse bilateral pulmonary infiltrates was essentially comparable to yesterday. We are having an issue with her platelet count is better count was extremely low yesterday. She was given a unit of platelets concentrate and subsequent platelet count came back at neck. No evidence of any bleeding. The heparin-induced, cytopenia antibodies came back negative. Liver function is within normal. Coagulation profile is within normal and the patient's fibrinogen level is at 171. The patient is currently on Solu-Medrol 40 mg she will 8 hours. Another platelets transfusion order was given to maintain a platelets of at least 10,000. Fortunately she is not having any signs of bleeding. The patient's LDH currently is at 950 which is lower, her CRP is less than 5. D-dimer based on last check was 2.09 which is also lower. Objective - Vital Signs Vital signs: Vital Signs Temp 97.6 F 12/12/20 04:00 Pulse 78 12/12/20 07:00 Resp 21 12/12/20 07:00 BP 116/83 12/12/20 07:00 Pulse Ox 95 12/12/20 07:00 Intake & Output 12/11/20 12/12/20 12/12/20 18:59 06:59 18:59 Intake Total 256 960 Output Total 2390 1300 100 Balance -2134 -340 -100 Weight 76.3 kg Intake: Oral 960 Blood Product 256 Platelet Pheresis Pas 256 Psoralen Unit [id number] Output: Urine 2390 1300 100 Other: Voiding Method Indwelling Catheter Indwelling Catheter - Exam GENERAL EXAM: Alert, pleasant, 60-year-old female patient on Airvo at 50 L/m, and FiO2 of 45% with O2 saturation 88-90%, comfortable in no apparent distress. HEAD: Normocephalic/atraumatic. EYES: Normal reaction of pupils, equal size. Conjunctiva pink, sclera white. NOSE: Clear with pink turbinates. THROAT: No erythema or exudates. NECK: No masses, no JVD, no thyroid enlargement, no adenopathy. CHEST: No chest wall deformity. Symmetrical expansion. LUNGS: Equal air entry with diffuse scattered ronchi, crackles in the bases CVS: Regular rate and rhythm, normal S1 and S2, no gallops, no murmurs, no rubs ABDOMEN: Soft, nontender. No hepatosplenomegaly, normal bowel sounds, no guarding or rigidity. EXTREMITIES: No clubbing, no edema, no cyanosis, 2+ pulses and upper and lower extremities. MUSCULOSKELETAL: Muscle strength and tone normal. SPINE: No scoliosis or deformity SKIN: No rashes CENTRAL NERVOUS SYSTEM: No focal deficits, tone is normal in all 4 extremities. PSYCHIATRIC: Alert and oriented -3. Appropriate affect. Intact judgment and insight. - Labs CBC & Chem 7: 12/12/20 05:50 12/12/20 05:50 Labs: Abnormal Lab Results - Last 24 Hours (Table) 12/11/20 12/11/20 12/11/20 Range/Units 11:30 11:33 16:40 RDW (11.5-15.5) % Plt Count (150-450) k/uL Neutrophils # (1.3-7.7) k/uL Lymphocytes # (1.0-4.8) k/uL APTT 21.5 L (22.0-30.0) sec Fibrinogen 171 L (200-500) mg/dL D-Dimer 2.43 H (<0.60) mg/L FEU Sodium (137-145) mmol/L Potassium (3.5-5.1) mmol/L Chloride (98-107) mmol/L Carbon Dioxide (22-30) mmol/L BUN (7-17) mg/dL Glucose (74-99) mg/dL POC Glucose (mg/dL) 112 H 107 H (75-99) mg/dL ALT (4-34) U/L Lactate Dehydrogenase (313-618) U/L Total Protein (6.3-8.2) g/dL 12/11/20 12/12/20 12/12/20 Range/Units 19:34 05:50 05:50 RDW 17.2 H (11.5-15.5) % Plt Count 6 L* (150-450) k/uL Neutrophils # 9.5 H (1.3-7.7) k/uL Lymphocytes # 0.2 L (1.0-4.8) k/uL APTT (22.0-30.0) sec Fibrinogen (200-500) mg/dL D-Dimer 2.09 H (<0.60) mg/L FEU Sodium (137-145) mmol/L Potassium (3.5-5.1) mmol/L Chloride (98-107) mmol/L Carbon Dioxide (22-30) mmol/L BUN (7-17) mg/dL Glucose (74-99) mg/dL POC Glucose (mg/dL) 174 H (75-99) mg/dL ALT (4-34) U/L Lactate Dehydrogenase (313-618) U/L Total Protein (6.3-8.2) g/dL 12/12/20 Range/Units 05:50 RDW (11.5-15.5) % Plt Count (150-450) k/uL Neutrophils # (1.3-7.7) k/uL Lymphocytes # (1.0-4.8) k/uL APTT (22.0-30.0) sec Fibrinogen (200-500) mg/dL D-Dimer (<0.60) mg/L FEU Sodium 128 L (137-145) mmol/L Potassium 3.4 L (3.5-5.1) mmol/L Chloride 89 L (98-107) mmol/L Carbon Dioxide 35 H (22-30) mmol/L BUN 23 H (7-17) mg/dL Glucose 116 H (74-99) mg/dL POC Glucose (mg/dL) (75-99) mg/dL ALT 44 H (4-34) U/L Lactate Dehydrogenase 950 H (313-618) U/L Total Protein 5.9 L (6.3-8.2) g/dL Assessment and Plan Plan: 1 Acute Covid 19 related pneumonia with bilateral pulmonary infiltrates most significant in the right upper lobe and the left lung seems to be diffusely infiltrated the chest x-ray findings are stable and the patient has been cut down to 45% FiO2 with a high flow oxygen at 50 L. She is comfortable and she is able to sit up on a chair. The active problem for now as the [place]ill thrombocytopenia. Heparin-induced cytopenia antibodies came back negative. The patient received 2 Acute severe hypoxic respiratory failure, slow to progress. Currently AirVo at 50 L and 45% FiO2 3 Increased pro-calcitonin ruled out possibility of bacterial infection, both mycoplasma titers were low, Legionella urine antigen was negative, blood cultures have shown no growth. 4 Chronic persistent bronchial asthma with an FEV1 of 82-87% on outpatient basis maintained on Symbicort 5 Steroid-induced hyperglycemia, improved 6 Hypertension 7 Hypothyroidism 8 Osteoarthritis and gout 9 Peripheral neuropathy involving lower extremities 10 Peripheral vascular disease 11 Chronic normocytic anemia 12 More than [id number] smoking history patient is currently an ex-smoker 13 Hiatal hernia with reflux 14 Thrombocytopenia, probably drug induced could be related to colchicine although the possibility of other drugs or even consumptive thrombocytopenia related to viral infection or even HIT note that the heparin-induced thrombocytopenia antibodies came back negative and the patient received a unit of platelets and the subsequent platelet came back at 6 and she was ordered to receive more platelets. Coagulation profile is within normal limits. No signs of any DIC. All of the medications that can potentially cause thrombocytopenia has been discontinued including colchicine, Pepcid and the patient is currently not receiving any anticoagulants. Plan: Immediate platelet transfusion with a platelet concentrate for a platelet count of 6000 I will try to achieve a platelet count of above 10,000 Stop colchicine immediately and also stop Pepcid Fall precautions Watch for any signs of GI bleed as the patient is at high risk of spontaneous bleeding Consults hematology Check PT/PTT INR and fibrinogen and d-dimer shows no evidence of any DIC and the coagulation profile is within normal and the d-dimer is improving heparin-induced thrombocytopenia antibodies came back negative Titrate down the FiO2 as tolerated Continue incentive spirometry discontinued IV Solu-Medrol. The patient prednisone 40 mg by mouth daily Continue to monitor her closely here in the ICU We will continue to follow and make further recommendations based on her clinical status
[2020-12-12 11:54] LABS: Ferritin 440.6 ng/mL (10.0-291.0)
--- NOTE | 2020-12-12 16:28 | P.PN ---
Subjective Progress Note Date: 12/11/20 Principal diagnosis: Acute hypoxic respiratory failure: Secondary to Covid 19 pneumonia 60-year-old female came in with complaints of shortness of breath found to have very low oxygen saturations patient was diagnosed with Covid 19 about 3 days ago patient had having symptoms for about a week. Patient was also company of fever chills patient has low-grade fever here. Patient was seen in [facility] subsequently transferred here patient is presently on 15 L of oxygen. Patient does have history of COPD. Patient was started on Decadron. Pulmonary was consulted. She was complaining of for cough without any significant sputum production. 11/21/2020 Patient doesn't feel any better patient remains on 15 L of oxygen along with Ventimask. Breasts will be replaced patient has highly elevated inflammatory markers although d-dimer is 0.36 pulmonology will evaluate the patient to evaluate for the need for Remdesivir. 11/22/2020 Patient is currently in MICU. Awake alert and oriented x3. On BiPAP with FiO2 100% saturating at 99%. Patient is still short of breath with tachypnea.. Patient was febrile with T-max 101 Laboratory test showed D-dimer level 0.78, ferritin 1436.9, LDH 1940 and CRP 143.6 and CK 589. UA negative for infection. Procalcitonin level is 1.28. Patient is being treated with remdesivir, dexamethasone and Lovenox. On antibiotics of ceftriaxone and azithromycin. Pulmonary is following. Chest x-ray showed slight worsening of patchy infiltrates bilaterally. Findings can be compatible with atypical pneumonia. 11/23/2020 Patient is currently in the MICU. Awake alert and oriented. On BiPAP support. Denied any chest pain. Cough and shortness of breath. Mainly dry cough. Afebrile. Patient is being continued dexamethasone 6 mg daily and remdesivir course. On anticoagulation. Chest x-ray showed diffuse increasing groundglass opacities. Correlate for pulmonary edema and ARDS. Atypical pneumonia is within differential. Patient was also started ceftriaxone and azithromycin for possible bacterial pneumonia underlying with elevated procalcitonin level. Pulmonary is on board.60-year-old female came in with compensative shortness of breath found to have very low oxygen saturations patient was diagnosed with Covid 19 about 3 days ago patient had having symptoms for about a week. Patient was also company of fever chills patient has low-grade fever here. Patient was seen in [facility] subsequently transferred here patient is presently on 15 L of oxygen. Patient does have history of COPD. Patient was started on Decadron. Pulmonary was consulted. She was complaining of for cough without any significant sputum production. 11/24/2020, patient is seen for a follow-up. The patient is currently still on a BiPAP with an FiO2 of 100%; feeling slightly better; remains afebrile. The chest x-ray remains unchanged and the patient continues to have diffuse but the pulmonary infiltrates consistent with code 19 related pneumonia. Her inflammatory markers are quite abnormal. At LDH from today was 1006 and 41, and her CRP was 59. Note that the CRP level was slightly lower. The pro-calcitonin level from yesterday was 0.18. CPKs nonelevated and a triglyceride level is at 154. The patient has a d-dimer of 14.8. She remains on Lovenox at a dose of 40 mg subcu every 12 hours which is in the order of 0.5 mg per KG every 12 hours. In terms of treatment, the patient remains on Decadron 20 mg IV on the daily basis and she is on Remdesivir and she also received 2 doses of Actemra 400 mg IV. Her oral intake was noted to be quite low as the patient is unable to get herself off the BiPAP for oral intake. Based on that, the patient will be given a PICC line today and she'll be started on TPN for nutritional support to maintain her nutritional status. No fever. No chills. Hemodynamically stable. No other issues for now. Her CODE STATUS is full code. 11/25/2020 patient is seen and evaluated in room for a follow-up; patient became hypoxic again and she had to be placed back on an FiO2 of 100% with a BiPAP pressure of 14/6 cm of water. Her current respiratory rate is in the order of 22-30 breaths per minute. The patient is comfortable. She is tolerating the treatment well. Laboratory review shows d-dimer is up to 30.01. Rest of the inflammatory markers show an LDH level of 1862 and the CRP is down to 40.8. Pro-calcitonin level was at 0.18. patient has received Lovenox at a dose of 40 mg subcu every 12 hours which is in the order of 0.5 mg per KG every 12 hours. In terms of treatment, the patient remains on Decadron 20 mg IV on the daily basis they #4 and she is on Remdesivir #5 and she also received 2 doses of Actemra 400 mg IV. Meanwhile be also inserted a PICC line in the left upper extremity and the patient was started on TPN for nutritional support. No altered mentation pH is resting comfortably in bed. Is slightly higher since the patient was started on TPN and septal 187 and the will going to put this patient on sliding scale blood sugar coverage. 11/26/2020 Patient remains in ICU and remains awake and alert; currently on BiPAP; FiO2 was weaned down to 70% with stable O2 saturation; patient remains on high-dose Decadron in form of 20 mg IV daily; inflammatory markers slowly trending down including CRP of 22, LDH of 1776, d-dimer 23.4 Patient is currently on TPN for nutrition at a rate of 45 hoursalong with blood glucose monitoring every 4 hours with insulin sliding scale; remains stable on IV fluids at 50 mL per hour Patient is being followed by pulmonology service and recommended to continue with Lovenox 40 mg subcu every 12 hours, Decadron 20 mg IV daily along with completing REM treatment; patient has received 2 doses of Actemra 400 mg IV 12/08/2020 patient is seen in follow-up in the intensive care unit. She is awake and alert. She is still requiring AirVo high flow oxygen at 60 L/m and 70% FiO2 to maintain O2 saturations in the 90s. No current IV fluids. She is receiving her second unit of convalescent plasma. Chest x-ray continues to show bilateral patchy perihilar and basilar infiltrates. Not much improvement. White count 9.9. Hemoglobin 11.7. Platelet count 63,000. D-dimer 3.60. Sodium 133. Potassium 3.3. Bicarb 36. Creatinine 0.63. AST 24. ALT 46. LDH 1101. C- reactive protein less than 5.0. She remains on IV Solu-Medrol, bronchodilators, Lovenox, colchicine, Pepcid, vitamin supplements. She's also been diuresed with Lasix 40 mg IV every 12 hours. plan is to continue the treatment as indicated above; titrate down FiO2 as tolerated; continue with incentive spirometry 12/09/2020 Patient is seen and evaluated in follow-up in the intensive care unit. She is currently sitting up in a chair at the bedside. Awake and alert in no acute distress. Continues to require AirVo high flow oxygen at 60 L/m at 66% FiO2. She is able to tolerate a bit more activity without significant desaturations. The amount of time that it takes for her to recover is getting less. Improving in that regard. Chest x-ray still revealing bilateral scattered infiltrates. Currently no IV fluids running. Appetite is improving. White count 10.7. Hemoglobin 11.7. Platelet count dropped to 35,000. Lymphocytes 0.3. D-dimer 3.3. Sodium 132. Potassium 3.9. Creatinine 0.63. Bicarb 32. LDH 1080. C- reactive protein less than 5. She remains on IV Solu-Medrol, bronchodilators, Lovenox, colchicine, Pepcid, vitamin supplements. Diuresed with Lasix 40 mg IV every 12 hours. She remains a negative balance. Continue the current treatment plan; Titrate down the FiO2 as tolerated; Co ntinue incentive spirometry; Increase activity as tolerated 12/10/2020 Patient is seen and evaluated in follow-up in the intensive care unit; resting comfortably in bed. She remains awake and alert in no acute distress; oxygen requirements continued to improve slowly. She is on the AirVo at 55 L/m and 55% FiO2. No IV fluids. She remains on IV Solu-Medrol, bronchodilators, colchicine, Pepcid, vitamin supplements, IV diuretics. She remains a negative balance. Intensive care service is following and recommending to continue to monitor in ICU 12/11/2020 Patient is currently in the MICU. On Airvo at 15 L and FiO2 of 50%. Currently sitting in the chair and awake alert and oriented. Tolerating oral diet. Next and patient is being continued on IV Solu-Medrol. Patient is having severe thrombocytopenia with platelet count 9000 today. Other laboratory data showed sodium 131 potassium 3.6) 91 BUN 31 and creatinine 0.59 Patient was started on 40 mg of IV Lasix daily. Current medications reviewed. All inpatient medications were reviewed and appropriate changes in these medications as dictated in the interval history and assessment and plan. Objective - Vital Signs Vital signs: Vital Signs Temp 98.5 F 12/11/20 12:36 Pulse 96 02/08/21 12:36 Resp 24 12/11/20 12:36 BP 117/83 12/11/20 12:36 Pulse Ox 94 L 12/11/20 12:36 Intake & Output 12/10/20 12/11/20 12/11/20 18:59 06:59 18:59 Intake Total 250 0 Output Total 1360 1185 1415 Balance -8519 -363 -2636 Weight 74.7 kg Intake: Oral 250 Blood Product 0 Platelet Pheresis Pas 0 Psoralen Unit [id number] Output: Urine 1360 1185 1415 Other: Voiding Method Indwelling Catheter Indwelling Catheter Indwelling Catheter - Exam - Exam GENERAL: The patient is alert and oriented x3, not in any acute distress. Well developed, well nourished. HEENT: Pupils are round and equally reacting to light. EOMI. No scleral icterus. No conjunctival pallor. Normocephalic, atraumatic. No pharyngeal erythema. No thyromegaly. CARDIOVASCULAR: S1 and S2 present. No murmurs, rubs, or gallops. PULMONARY: Diffuse bilateral rhonchi without any significant wheezing fairly good air entry into bilateral lung ruiz ABDOMEN: Soft, nontender, nondistended, normoactive bowel sounds. No palpable organomegaly. MUSCULOSKELETAL: No joint swelling or deformity. EXTREMITIES: No cyanosis, clubbing, patient does have some pedal edema NEUROLOGICAL: Gross neurological examination did not reveal any focal deficits. - Labs CBC & Chem 7: 12/12/20 05:50 12/12/20 05:50 Labs: Abnormal Lab Results - Last 24 Hours (Table) 12/10/20 12/11/20 12/11/20 Range/Units 20:05 04:30 04:30 WBC 11.1 H (3.8-10.6) k/uL RDW 17.0 H (11.5-15.5) % Plt Count 9 L* (150-450) k/uL Neutrophils # 10.4 H (1.3-7.7) k/uL Lymphocytes # 0.3 L (1.0-4.8) k/uL APTT (22.0-30.0) sec Fibrinogen (200-500) mg/dL D-Dimer (<0.60) mg/L FEU Sodium 131 L (137-145) mmol/L Chloride 91 L (98-107) mmol/L Carbon Dioxide 33 H (22-30) mmol/L BUN 31 H (7-17) mg/dL Glucose 143 H (74-99) mg/dL POC Glucose (mg/dL) 170 H (75-99) mg/dL Magnesium 2.4 H (1.6-2.3) mg/dL ALT 47 H (4-34) U/L Total Protein 5.9 L (6.3-8.2) g/dL 12/11/20 12/11/20 12/11/20 Range/Units 06:37 11:30 11:33 WBC (3.8-10.6) k/uL RDW (11.5-15.5) % Plt Count (150-450) k/uL Neutrophils # (1.3-7.7) k/uL Lymphocytes # (1.0-4.8) k/uL APTT 21.5 L (22.0-30.0) sec Fibrinogen 171 L (200-500) mg/dL D-Dimer 2.43 H (<0.60) mg/L FEU Sodium (137-145) mmol/L Chloride (98-107) mmol/L Carbon Dioxide (22-30) mmol/L BUN (7-17) mg/dL Glucose (74-99) mg/dL POC Glucose (mg/dL) 133 H 112 H (75-99) mg/dL Magnesium (1.6-2.3) mg/dL ALT (4-34) U/L Total Protein (6.3-8.2) g/dL Assessment and Plan Assessment: -Acute severe hypoxic respiratory failure Secondary to Covid 19 pneumonia: Initially Requiring BiPAP. Currently on Airvo 50 L and 50% FiO2.. patient was started on Solu-Medrol, multivitamins and DVT prophylaxis. Completed remdesivir 5 daytime disorder course.. -Severe thrombocytopenia possible drug-induced and also related to oral infection. -Chronic persistent asthma mild acute exacerbation secondary to Covid 19. Continued on steroids and Symbicort and breathing treatments. -Hyperlipidemia -Hypothyroidism -History of gout . Not in exacerbation. Colchicine has been discontinued due to severe thrombocytopenia. -Peripheral edema: Due to probably chronic venous stasis and patient will be resumed on Lasix oral. -Hiatal hernia with gastroesophageal reflux disease patient was resumed on Prilosec -GI prophylaxis as well as Lovenox for DVT prophylaxis. CODE STATUS; full code Plan: Patient will be continued on current high flow oxygen and titrate down FiO2. Continued on IV steroids and breathing treatments as needed. Patient was transfused with 2 units of FFP and 1 unit of platelets today. Monitor platelet count closely Heparin has been discontinued. Platelet factor 4 antibodies negative. LFTs are within normal limits. Coags are within normal limits as well. Colchicine has been discontinued. Continue to monitor the patient in the MICU. Pulmonary and hematology is on board. Time with Patient: Greater than 30
[2020-12-12] MEDS: SENNOSIDES 8.6 MG TAB PO PRN (16:50)
[2020-12-12 16:59] LABS: Glucose,Whole Blood 111 mg/dL (75-99)
[2020-12-12] MEDS: THEOPHYLLINE 24 HOUR 300 MG CAP.ER.24H PO SCH (21:32)
[2020-12-12] MEDS: ATORVASTATIN 40 MG TAB PO SCH (21:32)
[2020-12-12] MEDS: PRAMIPEXOLE 0.5 MG TAB PO SCH (21:32)
[2020-12-12] MEDS: GABAPENTIN 300 MG CAP PO SCH (21:32)
[2020-12-12] MEDS: MELATONIN 3 MG TABLET PO SCH (21:32)
[2020-12-12] MEDS: MONTELUKAST 10 MG TAB PO SCH (21:32)
[2020-12-12 21:42] LABS: Glucose,Whole Blood 125 mg/dL (75-99)
[2020-12-13] MEDS: SALT AND SODA MOUTHWASH 1,000 ML PO SCH ×5 (00:21→21:11)
[2020-12-13 05:27] LABS: Anisocytosis Slight; HCT 32.5 % (34.0-46.0); HGB 10.8 gm/dL (11.4-16.0); MCH 29.6 pg (25.0-35.0); MCHC 33.3 g/dL (31.0-37.0); MCV 88.9 fL (80.0-100.0); Mean Platelet Volume 7.5; RBC 3.65 m/uL (3.80-5.40); RDW 17.1 % (11.5-15.5); WBC 10.9 k/uL (3.8-10.6)
[2020-12-13 05:30] LABS: Platelet Count 8 k/uL (150-450)
[2020-12-13 05:35] LABS: African American GFR (CKD) >90 (>60 ml/min/1.73 sqM); Anion Gap 3 mmol/L; Blood Urea Nitrogen 23 mg/dL (7-17); Calcium 8.8 mg/dL (8.4-10.2); Carbon Dioxide 33 mmol/L (22-30); Chloride 91 mmol/L (98-107); Glucose 72 mg/dL (74-99); Non-African American GFR(CKD) >90 (>60 ml/min/1.73 sqM); Potassium 3.2 mmol/L (3.5-5.1); Sodium 127 mmol/L (137-145)
[2020-12-13] MEDS: LEVOTHYROXINE 75 MCG TAB PO SCH (06:10)
[2020-12-13] MEDS: POTASSIUM CHLORIDE ER 20 MEQ TAB.ER PO SCH ×2 (06:10→08:09)
[2020-12-13 06:59] LABS: Glucose,Whole Blood 58 mg/dL (75-99)
[2020-12-13 07:14] LABS: Glucose,Whole Blood 65 mg/dL (75-99)
[2020-12-13 07:47] LABS: Glucose,Whole Blood 117 mg/dL (75-99)
[2020-12-13] MEDS: INSULIN ASPART (NovoLOG) 100 UNIT/ML VIAL SQ SCH ×4 (07:53→21:00)
[2020-12-13] MEDS: SUCRALFATE 1 GM TAB PO SCH ×4 (07:57→21:11)
[2020-12-13] MEDS: NYSTATIN 100,000 UNIT/ML SUSP 500,000 UNIT/5 ML CUP PO SCH ×4 (07:57→21:11)
[2020-12-13] MEDS: GABAPENTIN 100 MG CAP PO SCH ×2 (07:58→12:42)
[2020-12-13] MEDS: MAG HYDROX/AL HYDROX/SIMETH 30 ML, LIDOCAINE VISCOUS 30 ML, diphenhydrAMINE ELIXIR 75 M... PO SCH ×12 (07:58→21:11)
[2020-12-13] MEDS: ASCORBIC ACID 500 MG TAB PO SCH (07:58)
[2020-12-13] MEDS: FUROSEMIDE 10 MG/ML 4 ML VIAL IV SCH (07:58)
[2020-12-13] MEDS: ZINC SULFATE 220 MG CAP PO SCH (07:58)
[2020-12-13] MEDS: SENNOSIDES 8.6 MG TAB PO PRN (07:59)
[2020-12-13] MEDS: ALBUTEROL HFA INHALER INHALATION SCH ×4 (08:17→20:40)
[2020-12-13] MEDS: TIOTROPIUM 2.5 MCG INHALER INHALATION SCH (08:17)
[2020-12-13] MEDS: SYMBICORT 160-4.5 MCG INHALER INHALATION SCH ×2 (08:17→20:40)
[2020-12-13] MEDS ORDERED: predniSONE 20 MG TAB PO SCH (09:00)
--- NOTE | 2020-12-13 09:39 | P.PN ---
Subjective Progress Note Date: 12/13/20 Acute hypoxic respiratory failure secondary to CoVID 19 pneumonia 60-year-old here patient hospitalized for COVID 19 related pneumonia and hypoxemia. The patient was found to have a low oxygen saturation. She was diagnosed having COVID 19 on 11/20/2020. However, her symptoms started approximately a week prior to that as the patient started having generalized weakness, fever and chills. In the hospital at [place], she was found to be hypoxic and she was placed on 15 L of oxygen by nasal cannula. She was started on Decadron and following that she was transferred to [facility] on 11/20/2020 for further evaluation. On today's evaluation the patient remains on 15 L of oxygen by nasal cannula. Laboratory markers show a LDH of 1482, her CRP is 239, her pro-calcitonin level is at 1.28, her white cell count is at 4.5 and the patient has a lymphopenia with a lymphocyte count of 0.7. The electrolytes all within normal limits. Renal function is within normal limits. Glucose slightly elevated at 235. The chest x-ray is showing bilateral pulmonary infiltrates mainly involving the left lung and or significantly in the right upper lobe area. The patient is known to have COPD/asthma. The patient is also has history of hypothyroidism, hyperlipidemia and gout. She has history of hiatal hernia.. She is on Decadron 6 mg by mouth daily. She is on no DVT prophylaxis is receiving 40 mg of Lovenox her d-dimer level is at 0.36. On 11/22/2020 patient seen in follow-up in intensive care unit. She is awake and alert, oriented 3, she is currently on BiPAP support with pressures of 14/5 and FiO2 of 100%, and her SpO2 is a 99%. Patient states she doesn't feel significantly more short of breath, however she tachypneic with a respiratory rate of 28 BPM, she has been febrile T-max of 10 1F, her pro-calcitonin came back elevated at 1.28 suggesting possibility of bacterial infection. Today we started her on Remdesivir, today's date to off treatment, her inflammatory markers are trending up, LDH is up to 1940, CRP is 143.6, d-dimer is 0.78, and is on prophylactic dose of Lovenox 40 mg daily, electrolytes and renal profile are unremarkable. O'Christiano is 9.2, hemoglobin is 11, platelet count is 322, neutrophils is 8.3, and in lymphocyte count is 0.5. Patient is on day 2 of high-dose IV steroids 20 mg daily. Patient is awake and alert, oriented 3, yesterday she reversed her CODE STATUS, from DO NOT RESUSCITATE to full code. On 11/23/2020 patient seen in follow-up in the intensive care unit, she remains on BiPAP support, has been very much dependent on it, and he desaturates rapidly even for short periods when the BiPAP mask is removed to give the patient oral medications, current BiPAP settings of 14/60 and FiO2 of 100%, her pulse ox is 93%. Awake and alert, she is oriented 3, she states her breathing is stable as long as she does not move and lays very still in bed. She is complaining of a dry cough, no chest discomfort, no palpitations. She is in sinus mechanism, bradycardic with a rate of 55 BPM, blood pressure is 116/66, not on any vasopressor support, her current IV fluids are 0.9 normal saline at a rate of 20 ML per hour. Patient's pattern has improved, T-max in last 24 hours 99.5F. Urinalysis was sent and shows no signs of infection, blood cultures will be sent today, last pro calcitonin yesterday was 1.29, repeat pro calcitonin has been sent and pending at this time, patient was empirically placed on azithromycin and Rocephin. Maintenance on high-dose IV steroids currently with Decadron 20 mg IV on the daily basis. Absent been reviewed, her d-dimer has trended up, and is at 5.13 today, her Lovenox dose will be adjusted 0.5 mg/kg of body weight twice daily, LDH is down slightly, 1670, CRP is relatively stable at 140.5. El ectronic are within normal limits, patient is mildly prerenal, BUN is 30 creatinine 0.74, she also remains on oral dose of Lasix and she has had very limited oral intake. She has only been able to take one or 2 sips of oral liquids and she states things do not taste right. White blood cell count is 6.5, hemoglobin is 10.5. His chest x-ray has been reviewed and diffuse increasing groundglass opacities. I discussed the patient's CODE STATUS with her, and she is agreeable to CPR, intubation, defibrillation, CODE STATUS will be changed to full code On 12/04/2020 patient seen in follow-up in the intensive care unit, she is off the BiPAP support, and currently on high flow oxygen per Airvo 60 L/m and FiO2 of 70%, with a pulse ox between 92-94%, she is breathing comfortably, denies any chest discomfort, she sitting up in a chair, she looks comfortable, she has had no fever or chills. Today's chest x-ray shows coarse infiltrates bilaterally with slight interval progression. Patient is tolerating oral diet. She is off the TPN. She is on 0.9 normal saline at a rate of 10 ML per hour, today's labs have been reviewed, d-dimer is improved from a few days back and is down to 6.70, patient is on Lovenox 40 mg twice a day, white blood cell count is 9.1, hemoglobin is 10.8, sodium is 134, potassium is 4.4, chloride is 96, CO2 is 34, B1 is 20, creatinine 0.64 LDH is 1660, CRP is less than 5. Patient remains on daily dose of IV Lasix, colchicine, Pepcid 20 mg twice a day, bronchodilators, IV Solu-Medrol 40 mg every 8 hours On 12/05/2020 patient is seen in follow-up in the intensive care unit, she remains on high flow oxygen per Airvo at 60 L/m and FiO2 of 75%, in the night her FiO2 have to be bumped up a little bit from a 70% because of an episode of desaturation. She also required 4 hours on BiPAP support. However this morning patient appears to be calm and comfortable, sitting up in the recliner, in her pulse ox on the Airvo at previously mentioned settings is 98-100%, she is breathing comfortaby. Patient is awake and alert, oriented 3, no altered mentation, she is in sinus mechanism, she is on 0.9 at 10 ML per hour, no other drips, she's been afebrile, vital signs have been stable. Chest x-ray has been reviewed, and it shows patchy perihilar and basilar infiltrates persistence without significant change. She remains on once daily dose of Lasix, and she is in -1090 mL fluid balance over the last 24 hours. She has been tolerating oral intake, no nausea vomiting or abdominal pain. Currently patient remains on IV steroids with Solu-Medrol 40 mg every 8 hours, colchicine, vitamin C D and zinc, melatonin, and bronchodilators. Today's d-dimer is 7.58. And patient remains on Lovenox at 40 mg twice daily which is 0.5 mg/kg of body weight twice daily. Patient also continues on Zosyn for empiric antibiotic coverage. Blood cultures have shown no growth. Follow-up LDH is trending down on today's labs and is down to 1370, CRP is less than 5. On 12/06/2020 patient seen in follow-up in intensive care unit, patient remains on Airvo at 60L and Fio2 75%. Satting between 88-91%, did require BiPap support last night for a few hours, currently back on Airvo. Patient is breathing comfortably, no acute distress, no chest discomfort. No fever, or chills. P atient is currently on 0.9 NS at 10 ml/hr. patient remains on Lasix, she is in - 1.8 L fluid balance over the last 24 hours, however her chest x-ray shows worsening airspace disease, and pulmonary edema. Blood pressure has been stable, today's labs have been reviewed, showing serum sodium of 135, potassium is 4.3, chloride is 97, CO2 is 24, B1 is 24, creatinine 0.64. Proalcitonin level came back negative, we can stop the Zosyn cultures are negative. No fever or chills. No nausea vomiting diarrhea. On 12/07/2020 patient seen in follow-up in intensive care unit, she remains on high flow oxygen per Airvo at 60 L, and FiO2 of 70%, and her pulse ox is 90-91%, looks fairly comfortable, she is sitting up on the edge of the bed, appears to be in no acute distress, she is getting ready to eat breakfast this morning, she has been afebrile, vital signs have been stable. her chest x-ray today showed diffuse increased lung markings more focal in the right lower lobe, patient has received increased dose of Lasix, and her chest x-ray shows better aeration compared to yesterday's exam.today's labs have been reviewed, her d-dimer is trending down, down to 5.40, white count is 10.2, hemoglobin is 11.4, sodium is 134, potassium is 3.3, chloride 96, CO2 is 23, BUN is 26 creatinine 0.64. LDH is 1300, CRP is less than 5, blood culture has shown no growth. The patient is seen today 12/08/2020 in follow-up in the intensive care unit. She is awake and alert. She is still requiring AirVo high flow oxygen at 60 L/m and 70% FiO2 to maintain O2 saturations in the 90s. No current IV fluids. She is receiving her second unit of convalescent plasma. Chest x-ray continues to show bilateral patchy perihilar and basilar infiltrates. Not much improvement. White count 9.9. Hemoglobin 11.7. Platelet count 63,000. D-dimer 3.60. Sodium 133. Potassium 3.3. Bicarb 36. Creatinine 0.63. AST 24. ALT 46. LDH 1101. C-reactive protein less than 5.0. She remains on IV Solu-Medrol, bronchodilators, Lovenox, colchicine, Pepcid, vitamin supplements. She's also been diuresed with Lasix 40 mg IV every 12 hours. The patient is seen today 12/09/2020 in follow-up in the intensive care unit. She is currently sitting up in a chair at the bedside. Awake and alert in no acute distress. Continues to require AirVo high flow oxygen at 60 L/m at 66% FiO2. She is able to tolerate a bit more activity without significant desaturations. The amount of time that it takes for her to recover is getting less. Improving in that regard. Chest x-ray still revealing bilateral scattered infiltrates. Currently no IV fluids running. Appetite is improving. White count 10.7. Hemoglobin 11.7. Platelet count dropped to 35,000. Lymphocytes 0.3. D-dimer 3.3. Sodium 132. Potassium 3.9. Creatinine 0.63. Bicarb 32. LDH 1080. C-reactive protein less than 5. She remains on IV Solu- Medrol, bronchodilators, Lovenox, colchicine, Pepcid, vitamin supplements. Diuresed with Lasix 40 mg IV every 12 hours. She remains a negative balance. The patient is seen today 12/10/2020 in follow-up in the intensive care unit. He is currently resting comfortably in bed. She remains awake and alert in no acute distress. Her oxygen requirements continued to improve slowly. She is on the AirVo at 55 L/m and 55% FiO2. No IV fluids. Her appetite has been fair. White count 9.5. Hemoglobin 12.4. Platelet count 15,000. D-dimer 2.99. Sodium 134. Potassium 3.2. Creatinine 0.61. She remains off Lovenox. HIT labs are pending. She remains on IV Solu-Medrol, bronchodilators, colchicine, Pepcid, vitamin supplements, IV diuretics. She remains a negative balance. On 12/11/2020 seeing the patient for a follow-up. She is sitting at edge of the bed. She is on high flow oxygen 50 L with an FiO2 of 50%. The patient has shown some limited improvement in her oxygenation over the past 2 weeks. The patient is currently on IV Solu-Medrol, colchicine, Pepcid, multivitamins. Of concern is the platelet drop that the patient encountered. There has been significant drop in the platelet count and patient is having some limited epistaxis. Monitoring the platelet count showed that the platelet drop from 119 down to 9 over the past 4 days. The white cell count remained stable. The hemoglobin also remained stable. As such, this is a selective thrombocytopenia. Could be related to colchicine which can cause thrombocytopenia. Lovenox was discontinued. Hit antibodies were also sent. Her d-dimer is down to 2.9. No skin bruises. No GI bleeding. Liver function tests are within normal limits. Renal function test is within normal limits. Chest x-ray showing stable bilateral pulmonary infiltrates. No recent coagulation profile ordered. On today's evaluation of 12/12/2020 the patient is stable. She is on high flow oxygen at 50 L with an FiO2 of 45%. Slightly compared to yesterday. Current pulse ox is 90%. The chest x-ray from today shows no major interval change and there is diffuse bilateral pulmonary infiltrates was essentially comparable to yesterday. We are having an issue with her platelet count is better count was extremely low yesterday. She was given a unit of platelets concentrate and subsequent platelet count came back at neck. No evidence of any bleeding. The heparin-induced, cytopenia antibodies came back negative. Liver function is within normal. Coagulation profile is within normal and the patient's fibrinogen level is at 171. The patient is currently on Solu-Medrol 40 mg she will 8 hours. Another platelets transfusion order was given to maintain a platelets of at least 10,000. Fortunately she is not having any signs of bleeding. The patient's LDH currently is at 950 which is lower, her CRP is less than 5. D-dimer based on last check was 2.09 which is also lower. 12/13/2020 seeing the patient for a follow-up. Overall oxygenation has improved and the patient's carotid ultrasound 3 L of oxygen by nasal cannula. She is feeling better. She is less short of breath. She has developed extensive oropharyngeal candidiasis despite being on nystatin and the patient will need Diflucan. Platelet count is 8000 after receiving another platelet transfusion. No active bleeding. Will try to achieve a platelets count above 10,000 and for that reason the patient will receive another platelet transfusion for now. The patient is otherwise doing well. She has change in her voice and she is havingNo inflammatory markers were obtained for today. Nevertheless, her numbers were downtrending and her sodium level is down to 127 and a potassium level down to 3.2 and the patient was given IV Lasix on a daily basis and this will be discontinued. I also took the patient off colchicine. I took her off any medication that could potentially drop the platelet counts. Hematology is on consult. HIT antibodies are negative. Objective - Vital Signs Vital signs: Vital Signs Temp 98.0 F 12/13/20 04:00 Pulse 95 12/13/20 09:00 Resp 20 12/13/20 09:00 BP 119/75 12/13/20 09:00 Pulse Ox 93 L 12/13/20 09:00 Intake & Output 12/12/20 12/13/20 12/13/20 18:59 06:59 18:59 Intake Total 1649 1200 Output Total 1700 960 Balance -51 240 Weight 75.9 kg Intake: Oral 1320 1200 Blood Product 329 Platelet Irr Pheresis Pas 329 -C Unit [id number] Output: Urine 1700 960 Other: Voiding Method Indwelling Catheter Indwelling Catheter Indwelling Catheter - Exam GENERAL EXAM: Alert, pleasant, 60-year-old female patient on at 15 L of oxygen by nasal cannula, comfortable in no apparent distress. HEAD: Normocephalic/atraumatic. EYES: Normal reaction of pupils, equal size. Conjunctiva pink, sclera white. NOSE: Clear with pink turbinates. THROAT: No erythema or exudates. Extensive oropharyngeal candidiasis involving tongue and posterior oropharynx NECK: No masses, no JVD, no thyroid enlargement, no adenopathy. CHEST: No chest wall deformity. Symmetrical expansion. LUNGS: Equal air entry with diffuse scattered ronchi, crackles in the bases CVS: Regular rate and rhythm, normal S1 and S2, no gallops, no murmurs, no rubs ABDOMEN: Soft, nontender. No hepatosplenomegaly, normal bowel sounds, no guarding or rigidity. EXTREMITIES: No clubbing, no edema, no cyanosis, 2+ pulses and upper and lower extremities. MUSCULOSKELETAL: Muscle strength and tone normal. SPINE: No scoliosis or deformity SKIN: No rashes CENTRAL NERVOUS SYSTEM: No focal deficits, tone is normal in all 4 extremities. PSYCHIATRIC: Alert and oriented -3. Appropriate affect. Intact judgment and insight. - Labs CBC & Chem 7: 12/13/20 05:00 12/13/20 05:00 Labs: Abnormal Lab Results - Last 24 Hours (Table) 12/12/20 12/12/20 12/12/20 Range/Units 05:50 16:57 17:03 WBC (3.8-10.6) k/uL RBC (3.80-5.40) m/uL Hgb (11.4-16.0) gm/dL Hct (34.0-46.0) % RDW (11.5-15.5) % Plt Count (150-450) k/uL Sodium (137-145) mmol/L Potassium 3.4 L (3.5-5.1) mmol/L Chloride (98-107) mmol/L Carbon Dioxide (22-30) mmol/L BUN (7-17) mg/dL Glucose (74-99) mg/dL POC Glucose (mg/dL) 111 H (75-99) mg/dL Ferritin 440.6 H (10.0-291.0) ng/mL 12/12/20 12/13/20 12/13/20 Range/Units 21:41 05:00 05:00 WBC 10.9 H (3.8-10.6) k/uL RBC 3.65 L (3.80-5.40) m/uL Hgb 10.8 L (11.4-16.0) gm/dL Hct 32.5 L (34.0-46.0) % RDW 17.1 H (11.5-15.5) % Plt Count 8 L* (150-450) k/uL Sodium 127 L (137-145) mmol/L Potassium 3.2 L (3.5-5.1) mmol/L Chloride 91 L (98-107) mmol/L Carbon Dioxide 33 H (22-30) mmol/L BUN 23 H (7-17) mg/dL Glucose 72 L (74-99) mg/dL POC Glucose (mg/dL) 125 H (75-99) mg/dL Ferritin (10.0-291.0) ng/mL 12/13/20 12/13/20 12/13/20 Range/Units 06:57 07:12 07:45 WBC (3.8-10.6) k/uL RBC (3.80-5.40) m/uL Hgb (11.4-16.0) gm/dL Hct (34.0-46.0) % RDW (11.5-15.5) % Plt Count (150-450) k/uL Sodium (137-145) mmol/L Potassium (3.5-5.1) mmol/L Chloride (98-107) mmol/L Carbon Dioxide (22-30) mmol/L BUN (7-17) mg/dL Glucose (74-99) mg/dL POC Glucose (mg/dL) 58 L 65 L 117 H (75-99) mg/dL Ferritin (10.0-291.0) ng/mL Assessment and Plan Plan: 1 Acute Covid 19 related pneumonia with bilateral pulmonary infiltrates most significant in the right upper lobe and the left lung seems to be diffusely infiltrated the chest x-ray findings are stable and the patient patient has demonstrated significant improvement in the oxygenation and the patient is down to 15 L for now 2 acute hypoxic respiratory failure secondary to above 3 Increased pro-calcitonin ruled out possibility of bacterial infection, both mycoplasma titers were low, Legionella urine antigen was negative, blood cultures have shown no growth. 4 Chronic persistent bronchial asthma with an FEV1 of 82-87% on outpatient basis maintained on Symbicort 5 Steroid-induced hyperglycemia, improved 6 Hypertension 7 Hypothyroidism 8 Osteoarthritis and gout 9 Peripheral neuropathy involving lower extremities 10 Peripheral vascular disease 11 Chronic normocytic anemia 12 More than [id number] smoking history patient is currently an ex-smoker 13 Hiatal hernia with reflux 14 Thrombocytopenia, probably drug induced could be related to colchicine although the possibility of other drugs or even consumptive thrombocytopenia related to viral infection or even HIT note that the heparin-induced thrombocytopenia antibodies came back negative and the patient received a unit of platelets and the subsequent platelet came back at 6 and she was ordered to receive more platelets. Coagulation profile is within normal limits. No signs of any DIC. All of the medications that can potentially cause thrombocytopenia has been discontinued including colchicine, Pepcid and the patient is currently not receiving any anticoagulants. 15 severe oropharyngeal candidiasis with difficulty swallowing and change in the speech despite being on nystatin. IV Solu-Medrol has been discontinued. Plan: Another platelet transfusion with a platelet concentrate for a platelet count of 8000 I will try to achieve a platelet count of above 10,000, no signs of any acute bleeding Keep the patient off colchicine and Pepcid Fall precautions Watch for any signs of GI bleed as the patient is at high risk of spontaneous bleeding Consults hematology Check PT/PTT INR and fibrinogen and d-dimer shows no evidence of any DIC and the coagulation profile is within normal and the d-dimer is improving heparin-induced thrombocytopenia antibodies came back negative Titrate down the FiO2 as tolerated Continue incentive spirometry Drop the prednisone 20 mg by mouth daily Stop the Lasix Replace potassium Given a bolus of 500 mL of normal saline Continue to monitor her closely here in the ICU We will continue to follow and make further recommendations based on her clinical status
[2020-12-13] MEDS ORDERED: methylPREDNISolone SOD SUCCI 125 MG/2 ML VIAL IV SCH (10:15)
[2020-12-13] MEDS ORDERED: SODIUM CHLORIDE 0.9% 500 ML 500 ML IV ONE (10:25)
--- NOTE | 2020-12-13 10:25 | P.PN ---
Subjective Progress Note Date: 12/13/20 Principal diagnosis: 60-year-old here patient hospitalized for COVID 19 related pneumonia and hypoxemia. The patient was found to have a low oxygen saturation. She was diagnosed having COVID 19 on 11/20/2020. However, her symptoms started approximately a week prior to that as the patient started having generalized weakness, fever and chills. In the hospital at [place], she was found to be hypoxic and she was placed on 15 L of oxygen by nasal cannula. She was started on Decadron and following that she was transferred to [facility] on 11/20/2020 for further evaluation. On today's evaluation the patient remains on 15 L of oxygen by nasal cannula. Laboratory markers show a LDH of 1482, her CRP is 239, her pro-calcitonin level is at 1.28, her white cell count is at 4.5 and the patient has a lymphopenia with a lymphocyte count of 0.7. The electrolytes all within normal limits. Renal function is within normal limits. Glucose slightly elevated at 235. The chest x-ray is showing bilateral pulmonary infiltrates mainly involving the left lung and or significantly in the right upper lobe area. The patient is known to have COPD/asthma. The patient is also has history of hypothyroidism, hyperlipidemia and gout. She has history of hiatal hernia.. She is on Decadron 6 mg by mouth daily. She is on no DVT prophylaxis is receiving 40 mg of Lovenox her d-dimer level is at 0.36. On 11/22/2020 patient seen in follow-up in intensive care unit. She is awake and alert, oriented 3, she is currently on BiPAP support with pressures of 14/5 and FiO2 of 100%, and her SpO2 is a 99%. Patient states she doesn't feel significantly more short of breath, however she tachypneic with a respiratory rate of 28 BPM, she has been febrile T-max of 10 1F, her pro-calcitonin came back elevated at 1.28 suggesting possibility of bacterial infection. Today we started her on Remdesivir, today's date to off treatment, her inflammatory markers are trending up, LDH is up to 1940, CRP is 143.6, d-dimer is 0.78, and is on prophylactic dose of Lovenox 40 mg daily, electrolytes and renal profile are unremarkable. O'Christiano is 9.2, hemoglobin is 11, platelet count is 322, neutrophils is 8.3, and in lymphocyte count is 0.5. Patient is on day 2 of high-dose IV steroids 20 mg daily. Patient is awake and alert, oriented 3, yesterday she reversed her CODE STATUS, from DO NOT RESUSCITATE to full code. On 11/23/2020 patient seen in follow-up in the intensive care unit, she remains on BiPAP support, has been very much dependent on it, and he desaturates rapidly even for short periods when the BiPAP mask is removed to give the patient oral medications, current BiPAP settings of 14/60 and FiO2 of 100%, her pulse ox is 93%. Awake and alert, she is oriented 3, she states her breathing is stable as long as she does not move and lays very still in bed. She is complaining of a dry cough, no chest discomfort, no palpitations. She is in sinus mechanism, bradycardic with a rate of 55 BPM, blood pressure is 116/66, not on any vasopressor support, her current IV fluids are 0.9 normal saline at a rate of 20 ML per hour. Patient's pattern has improved, T-max in last 24 hours 99.5F. Urinalysis was sent and shows no signs of infection, blood cultures will be sent today, last pro calcitonin yesterday was 1.29, repeat pro calcitonin has been sent and pending at this time, patient was empirically placed on azithromycin and Rocephin. Maintenance on high-dose IV steroids currently with Decadron 20 mg IV on the daily basis. Absent been reviewed, her d-dimer has trended up, and is at 5.13 today, her Lovenox dose will be adjusted 0.5 mg/kg of body weight twice daily, LDH is down slightly, 1670, CRP is relatively stable at 140.5. Electronic are within normal limits, patient is mildly prerenal, BUN is 30 creatinine 0.74, she also remains on oral dose of Lasix and she has had very limited oral intake. She has only been able to take one or 2 sips of oral liquids and she states things do not taste right. White blood cell count is 6.5, hemoglobin is 10.5. His chest x-ray has been reviewed and diffuse increasing groundglass opacities. I discussed the patient's CODE STATUS with her, and she is agreeable to CPR, intubation, defibrillation, CODE STATUS will be changed to full code On 12/04/2020 patient seen in follow-up in the intensive care unit, she is off the BiPAP support, and currently on high flow oxygen per Airvo 60 L/m and FiO2 of 70%, with a pulse ox between 92-94%, she is breathing comfortably, denies any chest discomfort, she sitting up in a chair, she looks comfortable, she has had no fever or chills. Today's chest x-ray shows coarse infiltrates bilaterally with slight interval progression. Patient is tolerating oral diet. She is off the TPN. She is on 0.9 normal saline at a rate of 10 ML per hour, today's labs have been reviewed, d-dimer is improved from a few days back and is down to 6.70, patient is on Lovenox 40 mg twice a day, white blood cell count is 9.1, hemoglobin is 10.8, sodium is 134, potassium is 4.4, chloride is 96, CO2 is 34, B1 is 20, creatinine 0.64 LDH is 1660, CRP is less than 5. Patient remains on daily dose of IV Lasix, colchicine, Pepcid 20 mg twice a day, bronchodilators, IV Solu-Medrol 40 mg every 8 hours On 12/05/2020 patient is seen in follow-up in the intensive care unit, she ashwin ins on high flow oxygen per Airvo at 60 L/m and FiO2 of 75%, in the night her FiO2 have to be bumped up a little bit from a 70% because of an episode of desaturation. She also required 4 hours on BiPAP support. However this morning patient appears to be calm and comfortable, sitting up in the recliner, in her pulse ox on the Airvo at previously mentioned settings is 98-100%, she is breathing comfortaby. Patient is awake and alert, oriented 3, no altered mentation, she is in sinus mechanism, she is on 0.9 at 10 ML per hour, no other drips, she's been afebrile, vital signs have been stable. Chest x-ray has been reviewed, and it shows patchy perihilar and basilar infiltrates persistence wi thout significant change. She remains on once daily dose of Lasix, and she is in -1090 mL fluid balance over the last 24 hours. She has been tolerating oral intake, no nausea vomiting or abdominal pain. Currently patient remains on IV steroids with Solu-Medrol 40 mg every 8 hours, colchicine, vitamin C D and zinc, melatonin, and bronchodilators. Today's d-dimer is 7.58. And patient remains on Lovenox at 40 mg twice daily which is 0.5 mg/kg of body weight twice daily. Patient also continues on Zosyn for empiric antibiotic coverage. Blood cultures have shown no growth. Follow-up LDH is trending down on today's labs and is down to 1370, CRP is less than 5. On 12/06/2020 patient seen in follow-up in intensive care unit, patient remains on Airvo at 60L and Fio2 75%. Satting between 88-91%, did require BiPap support last night for a few hours, currently back on Airvo. Patient is breathing comfortably, no acute distress, no chest discomfort. No fever, or chills. Patient is currently on 0.9 NS at 10 ml/hr. patient remains on Lasix, she is in -1.8 L fluid balance over the last 24 hours, however her chest x-ray shows worsening airspace disease, and pulmonary edema. Blood pressure has been stable, today's labs have been reviewed, showing serum sodium of 135, potassium is 4.3, chloride is 97, CO2 is 24, B1 is 24, creatinine 0.64. Proalcitonin level came back negative, we can stop the Zosyn cultures are negative. No fever or chills. No nausea vomiting diarrhea. On 12/07/2020 patient seen in follow-up in intensive care unit, she remains on high flow oxygen per Airvo at 60 L, and FiO2 of 70%, and her pulse ox is 90-91%, looks fairly comfortable, she is sitting up on the edge of the bed, appears to be in no acute distress, she is getting ready to eat breakfast this morning, she has been afebrile, vital signs have been stable. her chest x-ray today showed diffuse increased lung markings more focal in the right lower lobe, patient has received increased dose of Lasix, and her chest x-ray shows better aeration compared to yesterday's exam.today's labs have been reviewed, her d-dimer is trending down, down to 5.40, white count is 10.2, hemoglobin is 11.4, sodium is 134, potassium is 3.3, chloride 96, CO2 is 23, BUN is 26 creatinine 0.64. LDH is 1300, CRP is less than 5, blood culture has shown no growth. On 12/13/2020 patient seen in follow-up in intensive care unit, she is currently down to 15 L per simple high flow nasal cannula, pulse ox is 92-93%, hemodyna mics she stable, she is afebrile. There is a bit fatigued, but no acute distress, lung sounds revealed coarse inspiratory crackles over right lower lobe, relatively clear in the left lung. Does have a congested loose cough, no wheezing, she is on albuterol and Symbicort as, she remains on oral prednisone 40 mg once daily, but can further cut back to 20 mg daily. 0.9 normal saline at a rate of 20 ML per hour, labs reviewed, showing blood cell count of 10.9, hemoglobin is 10.8, platelet count is 8, patient so far transfused 2 units of platelets, no signs of bleeding, serum sodium is down to 127, patient had been on IV diuretics, which we will place on hold, potassium 3.2, chloride is 91, CO2 33, B1 is 23 creatinine 0.57, patient is tolerating oral intake, no nausea vomiting or diarrhea, we'll give the patient is small fluid bolus. And has developed significant ulceration and thrush in her oral cavity and tongue. Receiving Cheo's solution, and nystatin swish and swallow, we will add Diflucan for oral candidiasis as well. She is breathing comfortably, she appears fatigued, but she is in good spirits. Objective - Vital Signs Vital signs: Vital Signs Temp 98.0 F 12/13/20 04:00 Pulse 95 12/13/20 09:00 Resp 20 12/13/20 09:00 BP 119/75 12/13/20 09:00 Pulse Ox 93 L 12/13/20 09:00 Intake & Output 12/12/20 12/13/20 12/13/20 18:59 06:59 18:59 Intake Total 1649 1200 Output Total 1700 960 Balance -51 240 Weight 75.9 kg Intake: Oral 1320 1200 Blood Product 329 Platelet Irr Pheresis Pas 329 -C Unit [id number] Output: Urine 1700 960 Other: Voiding Method Indwelling Catheter Indwelling Catheter Indwelling Catheter - Exam GENERAL EXAM: Alert, pleasant, 60-year-old white female on 15 L of oxygen per simple high flow nasal cannula 91% comfortable in no apparent distress. HEAD: Normocephalic/atraumatic. EYES: Normal reaction of pupils, equal size. Conjunctiva pink, sclera white. NOSE: Clear with pink turbinates. THROAT: No erythema or exudates. NECK: No masses, no JVD, no thyroid enlargement, no adenopathy. CHEST: No chest wall deformity. Symmetrical expansion. LUNGS: Equal air entry with diffuse crackles right lower lobe, clear left lung CVS: Regular rate and rhythm, normal S1 and S2, no gallops, no murmurs, no rubs ABDOMEN: Soft, nontender. No hepatosplenomegaly, normal bowel sounds, no guarding or rigidity. EXTREMITIES: No clubbing, no edema, no cyanosis, 2+ pulses and upper and lower extremities. MUSCULOSKELETAL: Muscle strength and tone normal. SPINE: No scoliosis or deformity SKIN: No rashes CENTRAL NERVOUS SYSTEM: Alert and oriented -3. No focal deficits, tone is normal in all 4 extremities. PSYCHIATRIC: Alert and oriented -3. Appropriate affect. Intact judgment and insight. - Labs CBC & Chem 7: 12/13/20 05:00 12/13/20 05:00 Labs: Abnormal Lab Results - Last 24 Hours (Table) 12/12/20 12/12/20 12/12/20 Range/Units 05:50 16:57 17:03 WBC (3.8-10.6) k/uL RBC (3.80-5.40) m/uL Hgb (11.4-16.0) gm/dL Hct (34.0-46.0) % RDW (11.5-15.5) % Plt Count (150-450) k/uL Sodium (137-145) mmol/L Potassium 3.4 L (3.5-5.1) mmol/L Chloride (98-107) mmol/L Carbon Dioxide (22-30) mmol/L BUN (7-17) mg/dL Glucose (74-99) mg/dL POC Glucose (mg/dL) 111 H (75-99) mg/dL Ferritin 440.6 H (10.0-291.0) ng/mL 12/12/20 12/13/20 12/13/20 Range/Units 21:41 05:00 05:00 WBC 10.9 H (3.8-10.6) k/uL RBC 3.65 L (3.80-5.40) m/uL Hgb 10.8 L (11.4-16.0) gm/dL Hct 32.5 L (34.0-46.0) % RDW 17.1 H (11.5-15.5) % Plt Count 8 L* (150-450) k/uL Sodium 127 L (137-145) mmol/L Potassium 3.2 L (3.5-5.1) mmol/L Chloride 91 L (98-107) mmol/L Carbon Dioxide 33 H (22-30) mmol/L BUN 23 H (7-17) mg/dL Glucose 72 L (74-99) mg/dL POC Glucose (mg/dL) 125 H (75-99) mg/dL Ferritin (10.0-291.0) ng/mL 12/13/20 12/13/20 12/13/20 Range/Units 06:57 07:12 07:45 WBC (3.8-10.6) k/uL RBC (3.80-5.40) m/uL Hgb (11.4-16.0) gm/dL Hct (34.0-46.0) % RDW (11.5-15.5) % Plt Count (150-450) k/uL Sodium (137-145) mmol/L Potassium (3.5-5.1) mmol/L Chloride (98-107) mmol/L Carbon Dioxide (22-30) mmol/L BUN (7-17) mg/dL Glucose (74-99) mg/dL POC Glucose (mg/dL) 58 L 65 L 117 H (75-99) mg/dL Ferritin (10.0-291.0) ng/mL Assessment and Plan Plan: Assessment: #1. acute Covid 19 related pneumonia with bilateral pulmonary infiltrates most significant in the right upper lobe and the left lung seems to be diffusely infiltrated #2. acute severe hypoxic respiratory failure, worsening over last 24 hours, patient on FiO2 100%, and BiPAP support, the evidence of worsening inflammatory markers and worsening oxygenation. She received Remdesivir treatment on 11/21/2020, and high-dose IV Decadron on 11/21/2020, vision received 2 doses of Tocilizumab. Patient had rapid worsening of oxygenation and was transferred to the intensive care unit on 11/21/2020. Currently requiring BiPAP support with pressures of 14/5 and FiO2 100% On 11/23/2020 is on BiPAP support with FiO2 of 100%, and very much dependent on BiPAP support. On 12/04/2020 patient is on Airvo at 60 L in and FiO2 of 70% with pulse ox of 94% On 12/13/2020 patient is off the Airvo and is on simple high flow nasal cannula at 15 L/m #3. Thrombocytopenia, probably drug induced could be related to colchicine al though the possibility of other drugs or even consumptive thrombocytopenia related to viral infection or even HIT note that the heparin-induced thrombocytopenia antibodies came back negative and the patient received platelets, and today on 12/13/2020 her platelet count is still 8 and patient will receive another unit of platelets. Coagulation profile is within normal limits. No signs of any DIC. All of the medications that can potentially cause thrombocytopenia has been discontinued including colchicine, Pepcid and the patient is currently not receiving any anticoagulants. #4. Increased pro-calcitonin rule out possibility of bacterial infection, we'll cover the patient with azithromycin and Rocephin, we'll send urinalysis with cultures, we'll send a Legionella urine antigen and mycoplasma IgM and IgG, both mycoplasma titers were low, Legionella urine antigen was negative, blood cult ures have shown no growth. #5. chronic persistent bronchial asthma with an FEV1 of 82-87% on outpatient basis maintained on Symbicort #6. steroid-induced hyperglycemia #7. hypertension #8. hypothyroidism #9. Osteoarthritis and gout #10. Peripheral neuropathy involving lower extremities #11. Peripheral vascular disease #12. Chronic normocytic anemia #13. More than [id number] smoking history patient is currently an ex-smoker hiatal hernia with reflux #14. Hyponatremia related to diuretic therapy, we'll stop the Lasix, we'll give the patient small IV bolus Plan: Continue weaning FiO2, patient was switched over to simple high flow nasal cannula at 15 L, no worsening dyspnea, cut back the prednisone to 20 mg daily, continue holding all anticoagulation, platelet count is 8, no obvious signs of bleeding, we'll transfuse with another unit of platelets. We'll stop the Lasix, monitor electrolytes, monitor sodium level, replace potassium per protocol, we'll give the patient is small IV bolus of 0.9 normal saline 500 mL, repeat labs tomorrow, provide assistance with ADLs, fall precaution in view of low platelet count and spontaneous intracranial hemorrhage. Continue to closely follow I performed a history & physical examination of the patient and discussed their management with my nurse practitioner, Cate Madsen. I reviewed the nurse practitioner's note and agree with the documented findings and plan of care. Lung sounds are positive for diffuse crackles throughout the lung ruiz. The findings and the impression was discussed with the patient. I attest to the documentation by the nurse practitioner. Time with Patient: Greater than 30
[2020-12-13 10:45] LABS: Glucose,Whole Blood 88 mg/dL (75-99)
[2020-12-13] MEDS: predniSONE 20 MG TAB PO SCH (10:54)
[2020-12-13] MEDS ORDERED: IMMUNE GLOBULIN (GAMMAGARD) 20 GM in EMPTY BAG 1 BAG IV ONE (12:00)
--- NOTE | 2020-12-13 13:58 | P.PN ---
Subjective Progress Note Date: 12/13/20 Principal diagnosis: covid 19, thrombocytopenia (ITP) In f/u today pt is stable, no better no worse, breathing is still labored, some minor bleeding from severe mucositis and dry mucus membranes, no bleeding, hematomas, petechiae, or purpura that is unexplained or spontaneous. Objective - Vital Signs Vital signs: Vital Signs Temp 98.0 F 12/13/20 04:00 Pulse 95 12/13/20 09:00 Resp 20 12/13/20 09:00 BP 119/75 12/13/20 09:00 Pulse Ox 93 L 12/13/20 09:00 Intake & Output 12/12/20 12/13/20 12/13/20 18:59 06:59 18:59 Intake Total 1649 1200 Output Total 1700 960 Balance -51 240 Weight 75.9 kg Intake: Oral 1320 1200 Blood Product 329 Platelet Irr Pheresis Pas 329 -C Unit [id number] Output: Urine 1700 960 Other: Voiding Method Indwelling Catheter Indwelling Catheter Indwelling Catheter - Constitutional General appearance: Present: average body habitus, cooperative, mild distress - EENT Eyes: Present: EOMI ENT: Present: hearing grossly normal, pharyngeal erythema - Respiratory Respiratory: bilateral: diminished - Cardiovascular Heart sounds: normal: S1, S2 - Peripheral edema leg Peripheral Edema: bilateral: None - Gastrointestinal General gastrointestinal: Present: normal bowel sounds, soft - Neurologic Neurologic: Present: CNII-XII intact - Musculoskeletal Musculoskeletal: Present: strength equal bilaterally - Psychiatric Psychiatric: Present: A&O x's 3, appropriate affect, intact judgment & insight - Labs CBC & Chem 7: 12/13/20 05:00 12/13/20 10:47 Labs: Abnormal Lab Results - Last 24 Hours (Table) 12/12/20 12/12/20 12/12/20 Range/Units 05:50 16:57 17:03 WBC (3.8-10.6) k/uL RBC (3.80-5.40) m/uL Hgb (11.4-16.0) gm/dL Hct (34.0-46.0) % RDW (11.5-15.5) % Plt Count (150-450) k/uL Sodium (137-145) mmol/L Potassium 3.4 L (3.5-5.1) mmol/L Chloride (98-107) mmol/L Carbon Dioxide (22-30) mmol/L BUN (7-17) mg/dL Glucose (74-99) mg/dL POC Glucose (mg/dL) 111 H (75-99) mg/dL Ferritin 440.6 H (10.0-291.0) ng/mL 12/12/20 12/13/20 12/13/20 Range/Units 21:41 05:00 05:00 WBC 10.9 H (3.8-10.6) k/uL RBC 3.65 L (3.80-5.40) m/uL Hgb 10.8 L (11.4-16.0) gm/dL Hct 32.5 L (34.0-46.0) % RDW 17.1 H (11.5-15.5) % Plt Count 8 L* (150-450) k/uL Sodium 127 L (137-145) mmol/L Potassium 3.2 L (3.5-5.1) mmol/L Chloride 91 L (98-107) mmol/L Carbon Dioxide 33 H (22-30) mmol/L BUN 23 H (7-17) mg/dL Glucose 72 L (74-99) mg/dL POC Glucose (mg/dL) 125 H (75-99) mg/dL Ferritin (10.0-291.0) ng/mL 12/13/20 12/13/20 12/13/20 Range/Units 06:57 07:12 07:45 WBC (3.8-10.6) k/uL RBC (3.80-5.40) m/uL Hgb (11.4-16.0) gm/dL Hct (34.0-46.0) % RDW (11.5-15.5) % Plt Count (150-450) k/uL Sodium (137-145) mmol/L Potassium (3.5-5.1) mmol/L Chloride (98-107) mmol/L Carbon Dioxide (22-30) mmol/L BUN (7-17) mg/dL Glucose (74-99) mg/dL POC Glucose (mg/dL) 58 L 65 L 117 H (75-99) mg/dL Ferritin (10.0-291.0) ng/mL Assessment and Plan (1) Thrombocytopenia Narrative/Plan: New onset in the setting of acute illness. No evidence of DIC (coags WNL, fibrinogen low but not less then 100, no spontaneous bleeding, not responsive to transfusions of platelets). IVIG discussed with Pharmacist and Critical Care team who agree with administration. Critical Care does not recommend high dose steroids as pt has been on without any change in plt and pt is suffering from high dose steroid side effects. Pred will cont at 20mg QD. Cont supportive care, close monitoring of CBC and for bleeding. HIT ab neg Fibrinogen and coags in AM. We will cont to follow with you and order additional studies as appropriate. Current Visit: Yes Status: Acute Priority: High Code(s): D69.6 - TH ROMBOCYTOPENIA, UNSPECIFIED SNOMED Code(s): 604567081 (2) Mucositis Narrative/Plan: Severe oral irritation. Pt is on zinc and vit C, also nystatin. Cont kools and salt and soda. Current Visit: Yes Status: Acute Priority: High Code(s): K12.30 - ORAL MUCOSITIS (ULCERATIVE), UNSPECIFIED SNOMED Code(s): 28057417 (3) Acute ITP Narrative/Plan: 2/2 covid infection. IVIG discussed with Pharmacist who will order. Current Visit: Yes Status: Acute Priority: High Code(s): D69.3 - IMMUNE THROMBOCYTOPENIC PURPURA SNOMED Code(s): 34209081
[2020-12-13] MEDS ORDERED: LACTULOSE 20 GM/30 ML CUP PO ONE (15:00)
[2020-12-13 17:02] LABS: Glucose,Whole Blood 85 mg/dL (75-99)
[2020-12-13 20:49] LABS: Glucose,Whole Blood 92 mg/dL (75-99)
[2020-12-13] MEDS: THEOPHYLLINE 24 HOUR 300 MG CAP.ER.24H PO SCH (21:11)
[2020-12-13] MEDS: MONTELUKAST 10 MG TAB PO SCH (21:11)
[2020-12-13] MEDS: PRAMIPEXOLE 0.5 MG TAB PO SCH (21:11)
[2020-12-13] MEDS: ATORVASTATIN 40 MG TAB PO SCH (21:11)
[2020-12-13] MEDS: GABAPENTIN 300 MG CAP PO SCH (21:11)
[2020-12-13] MEDS: MELATONIN 3 MG TABLET PO SCH (21:11)
[2020-12-13] MEDS: ACETAMINOPHEN TAB 325 MG TAB PO PRN (21:45)
[2020-12-14] MEDS: SALT AND SODA MOUTHWASH 1,000 ML PO SCH ×5 (00:24→21:55)
[2020-12-14] MEDS: ACETAMINOPHEN TAB 325 MG TAB PO PRN (03:50)
[2020-12-14 04:34] LABS: Anisocytosis Slight; HCT 30.7 % (34.0-46.0); HGB 10.3 gm/dL (11.4-16.0); MCH 30.1 pg (25.0-35.0); MCHC 33.6 g/dL (31.0-37.0); MCV 89.8 fL (80.0-100.0); Mean Platelet Volume 9.3; RBC 3.42 m/uL (3.80-5.40); RDW 16.9 % (11.5-15.5)
[2020-12-14 04:47] LABS: Platelet Count 28 k/uL (150-450)
[2020-12-14 04:55] LABS: African American GFR (CKD) >90 (>60 ml/min/1.73 sqM); Anion Gap 1 mmol/L; Blood Urea Nitrogen 18 mg/dL (7-17); Calcium 8.6 mg/dL (8.4-10.2); Carbon Dioxide 32 mmol/L (22-30); Chloride 94 mmol/L (98-107); Glucose 68 mg/dL (74-99); Non-African American GFR(CKD) >90 (>60 ml/min/1.73 sqM); Potassium 3.4 mmol/L (3.5-5.1); Sodium 127 mmol/L (137-145)
[2020-12-14 04:59] LABS: Partial Thromboplastin Time 22.5 sec (22.0-30.0); Prothrombin Time 10.4 sec (9.0-12.0)
[2020-12-14 05:06] LABS: Glucose,Whole Blood 76 mg/dL (75-99)
[2020-12-14] MEDS: LEVOTHYROXINE 75 MCG TAB PO SCH (06:21)
[2020-12-14] MEDS: POTASSIUM CHLORIDE ER 20 MEQ TAB.ER PO SCH ×2 (06:21→09:08)
[2020-12-14 07:09] LABS: Glucose,Whole Blood 86 mg/dL (75-99)
[2020-12-14] MEDS ORDERED: predniSONE 20 MG TAB PO SCH (09:00)
[2020-12-14] MEDS: ASCORBIC ACID 500 MG TAB PO SCH (09:08)
[2020-12-14] MEDS: predniSONE 20 MG TAB PO SCH (09:08)
[2020-12-14] MEDS: MAG HYDROX/AL HYDROX/SIMETH 30 ML, LIDOCAINE VISCOUS 30 ML, diphenhydrAMINE ELIXIR 75 M... PO SCH ×12 (09:08→21:56)
[2020-12-14] MEDS: ZINC SULFATE 220 MG CAP PO SCH (09:08)
[2020-12-14] MEDS: NYSTATIN 100,000 UNIT/ML SUSP 500,000 UNIT/5 ML CUP PO SCH ×4 (09:08→21:56)
[2020-12-14] MEDS: FLUCONAZOLE IN NACL,ISO-OSM 100 MG in SALINE 1 50ML.BAG IVPB SCH (09:08)
[2020-12-14] MEDS: GABAPENTIN 100 MG CAP PO SCH ×2 (09:08→11:42)
[2020-12-14] MEDS: SUCRALFATE 1 GM TAB PO SCH ×4 (09:08→21:56)
[2020-12-14] MEDS: INSULIN ASPART (NovoLOG) 100 UNIT/ML VIAL SQ SCH ×4 (09:09→21:46)
[2020-12-14] MEDS: SENNOSIDES 8.6 MG TAB PO PRN (09:13)
[2020-12-14] MEDS: ALBUTEROL HFA INHALER INHALATION SCH ×4 (09:18→19:11)
[2020-12-14] MEDS: TIOTROPIUM 2.5 MCG INHALER INHALATION SCH (09:19)
[2020-12-14] MEDS: SYMBICORT 160-4.5 MCG INHALER INHALATION SCH ×2 (09:19→19:11)
--- NOTE | 2020-12-14 09:53 | P.PN ---
Subjective Progress Note Date: 12/12/20 Principal diagnosis: Acute hypoxic respiratory failure: Secondary to Covid 19 pneumonia 60-year-old female came in with complaints of shortness of breath found to have very low oxygen saturations patient was diagnosed with Covid 19 about 3 days ago patient had having symptoms for about a week. Patient was also company of fever chills patient has low-grade fever here. Patient was seen in [facility] subsequently transferred here patient is presently on 15 L of oxygen. Patient does have history of COPD. Patient was started on Decadron. Pulmonary was consulted. She was complaining of for cough without any significant sputum production. 11/21/2020 Patient doesn't feel any better patient remains on 15 L of oxygen along with Ventimask. Breasts will be replaced patient has highly elevated inflammatory markers although d-dimer is 0.36 pulmonology will evaluate the patient to evaluate for the need for Remdesivir. 11/22/2020 Patient is currently in MICU. Awake alert and oriented x3. On BiPAP with FiO2 100% saturating at 99%. Patient is still short of breath with tachypnea.. Patient was febrile with T-max 101 Laboratory test showed D-dimer level 0.78, ferritin 1436.9, LDH 1940 and CRP 143.6 and CK 589. UA negative for infection. Procalcitonin level is 1.28. Patient is being treated with remdesivir, dexamethasone and Lovenox. On antibiotics of ceftriaxone and azithromycin. Pulmonary is following. Chest x-ray showed slight worsening of patchy infiltrates bilaterally. Findings can be compatible with atypical pneumonia. 11/23/2020 Patient is currently in the MICU. Awake alert and oriented. On BiPAP support. Denied any chest pain. Cough and shortness of breath. Mainly dry cough. Afebrile. Patient is being continued dexamethasone 6 mg daily and remdesivir course. On anticoagulation. Chest x-ray showed diffuse increasing groundglass opacities. Correlate for pulmonary edema and ARDS. Atypical pneumonia is within differential. Patient was also started ceftriaxone and azithromycin for possible bacterial pneumonia underlying with elevated procalcitonin level. Pulmonary is on board.60-year-old female came in with compensative shortness of breath found to have very low oxygen saturations patient was diagnosed with Covid 19 about 3 days ago patient had having symptoms for about a week. Patient was also company of fever chills patient has low-grade fever here. Patient was seen in [facility] subsequently transferred here patient is presently on 15 L of oxygen. Patient does have history of COPD. Patient was started on Decadron. Pulmonary was consulted. She was complaining of for cough without any significant sputum production. 11/24/2020, patient is seen for a follow-up. The patient is currently still on a BiPAP with an FiO2 of 100%; feeling slightly better; remains afebrile. The chest x-ray remains unchanged and the patient continues to have diffuse but the pulmonary infiltrates consistent with code 19 related pneumonia. Her inflammatory markers are quite abnormal. At LDH from today was 1006 and 41, and her CRP was 59. Note that the CRP level was slightly lower. The pro-calcitonin level from yesterday was 0.18. CPKs nonelevated and a triglyceride level is at 154. The patient has a d-dimer of 14.8. She remains on Lovenox at a dose of 40 mg subcu every 12 hours which is in the order of 0.5 mg per KG every 12 hours. In terms of treatment, the patient remains on Decadron 20 mg IV on the daily basis and she is on Remdesivir and she also received 2 doses of Actemra 400 mg IV. Her oral intake was noted to be quite low as the patient is unable to get herself off the BiPAP for oral intake. Based on that, the patient will be given a PICC line today and she'll be started on TPN for nutritional support to maintain her nutritional status. No fever. No chills. Hemodynamically stable. No other issues for now. Her CODE STATUS is full code. 11/25/2020 patient is seen and evaluated in room for a follow-up; patient became hypoxic again and she had to be placed back on an FiO2 of 100% with a BiPAP pressure of 14/6 cm of water. Her current respiratory rate is in the order of 22-30 breaths per minute. The patient is comfortable. She is tolerating the treatment well. Laboratory review shows d-dimer is up to 30.01. Rest of the inflammatory markers show an LDH level of 1862 and the CRP is down to 40.8. Pro-calcitonin level was at 0.18. patient has received Lovenox at a dose of 40 mg subcu every 12 hours which is in the order of 0.5 mg per KG every 12 hours. In terms of treatment, the patient remains on Decadron 20 mg IV on the daily basis they #4 and she is on Remdesivir #5 and she also received 2 doses of Actemra 400 mg IV. Meanwhile be also inserted a PICC line in the left upper extremity and the patient was started on TPN for nutritional support. No altered mentation pH is resting comfortably in bed. Is slightly higher since the patient was started on TPN and septal 187 and the will going to put this patient on sliding scale blood sugar coverage. 11/26/2020 Patient remains in ICU and remains awake and alert; currently on BiPAP; FiO2 was weaned down to 70% with stable O2 saturation; patient remains on high-dose Decadron in form of 20 mg IV daily; inflammatory markers slowly trending down including CRP of 22, LDH of 1776, d-dimer 23.4 Patient is currently on TPN for nutrition at a rate of 45 hoursalong with blood glucose monitoring every 4 hours with insulin sliding scale; remains stable on IV fluids at 50 mL per hour Patient is being followed by pulmonology service and recommended to continue with Lovenox 40 mg subcu every 12 hours, Decadron 20 mg IV daily along with completing REM treatment; patient has received 2 doses of Actemra 400 mg IV 12/08/2020 patient is seen in follow-up in the intensive care unit. She is awake and alert. She is still requiring AirVo high flow oxygen at 60 L/m and 70% FiO2 to maintain O2 saturations in the 90s. No current IV fluids. She is receiving her second unit of convalescent plasma. Chest x-ray continues to show bilateral patchy perihilar and basilar infiltrates. Not much improvement. White count 9.9. Hemoglobin 11.7. Platelet count 63,000. D-dimer 3.60. Sodium 133. Potassium 3.3. Bicarb 36. Creatinine 0.63. AST 24. ALT 46. LDH 1101. C- reactive protein less than 5.0. She remains on IV Solu-Medrol, bronchodilators, Lovenox, colchicine, Pepcid, vitamin supplements. She's also been diuresed with Lasix 40 mg IV every 12 hours. plan is to continue the treatment as indicated above; titrate down FiO2 as tolerated; continue with incentive spirometry 12/09/2020 Patient is seen and evaluated in follow-up in the intensive care unit. She is currently sitting up in a chair at the bedside. Awake and alert in no acute distress. Continues to require AirVo high flow oxygen at 60 L/m at 66% FiO2. She is able to tolerate a bit more activity without significant desaturations. The amount of time that it takes for her to recover is getting less. Improving in that regard. Chest x-ray still revealing bilateral scattered infiltrates. Currently no IV fluids running. Appetite is improving. White count 10.7. Hemoglobin 11.7. Platelet count dropped to 35,000. Lymphocytes 0.3. D-dimer 3.3. Sodium 132. Potassium 3.9. Creatinine 0.63. Bicarb 32. LDH 1080. C- reactive protein less than 5. She remains on IV Solu-Medrol, bronchodilators, Lovenox, colchicine, Pepcid, vitamin supplements. Diuresed with Lasix 40 mg IV every 12 hours. She remains a negative balance. Continue the current treatment plan; Titrate down the FiO2 as tolerated; Co ntinue incentive spirometry; Increase activity as tolerated 12/10/2020 Patient is seen and evaluated in follow-up in the intensive care unit; resting comfortably in bed. She remains awake and alert in no acute distress; oxygen requirements continued to improve slowly. She is on the AirVo at 55 L/m and 55% FiO2. No IV fluids. She remains on IV Solu-Medrol, bronchodilators, colchicine, Pepcid, vitamin supplements, IV diuretics. She remains a negative balance. Intensive care service is following and recommending to continue to monitor in ICU 12/11/2020 Patient is currently in the MICU. On Airvo at 15 L and FiO2 of 50%. Currently sitting in the chair and awake alert and oriented. Tolerating oral diet. Next and patient is being continued on IV Solu-Medrol. Patient is having severe thrombocytopenia with platelet count 9000 today. Other laboratory data showed sodium 131 potassium 3.6) 91 BUN 31 and creatinine 0.59 Patient was started on 40 mg of IV Lasix daily. 12/12/2020 Patient is currently in MICU. Sitting in a chair comfortably. Requiring high flow oxygen at 15 L and FiO2 45%. Chest x-ray showed diffuse bilateral pulmonary infiltrates without any significant change. Breathing status is slightly better. Platelet count is at 6000 today. Patient is being continued on Solu-Medrol 40 mg IV every 8 hours. Patient is getting another platelet transfusion today. Inflammatory markers are trending down. Pulmonary and oncology is on board. Current medications reviewed. All inpatient medications were reviewed and appropriate changes in these medications as dictated in the interval history and assessment and plan. Objective - Vital Signs Vital signs: Vital Signs Temp 97.5 F L 12/12/20 16:03 Pulse 95 12/12/20 16:03 Resp 24 12/12/20 16:03 BP 116/75 12/12/20 16:03 Pulse Ox 92 L 12/12/20 16:03 Intake & Output 12/11/20 12/12/20 12/12/20 18:59 06:59 18:59 Intake Total 047 788 8287 Output Total 2390 1300 1100 Balance -2134 -340 189 Weight 76.3 kg Intake: Oral 960 960 Blood Product 256 329 Platelet Irr Pheresis Pas 329 -C Unit [id number] Platelet Pheresis Pas 256 Psoralen Unit [id number] Output: Urine 2390 1300 1100 Other: Voiding Method Indwelling Catheter Indwelling Catheter Indwelling Catheter - Exam - Exam GENERAL: The patient is alert and oriented x3, not in any acute distress. Well developed, well nourished. HEENT: Pupils are round and equally reacting to light. EOMI. No scleral icterus. No conjunctival pallor. Normocephalic, atraumatic. No pharyngeal erythema. No thyromegaly. CARDIOVASCULAR: S1 and S2 present. No murmurs, rubs, or gallops. PULMONARY: Diffuse bilateral rhonchi without any significant wheezing fairly good air entry into bilateral lung ruiz ABDOMEN: Soft, nontender, nondistended, normoactive bowel sounds. No palpable organomegaly. MUSCULOSKELETAL: No joint swelling or deformity. EXTREMITIES: No cyanosis, clubbing, patient does have some pedal edema NEUROLOGICAL: Gross neurological examination did not reveal any focal deficits. - Labs CBC & Chem 7: 12/14/20 04:00 12/14/20 04:15 Labs: Abnormal Lab Results - Last 24 Hours (Table) 12/11/20 12/11/20 12/12/20 Range/Units 16:40 19:34 05:50 RDW 17.2 H (11.5-15.5) % Plt Count 6 L* (150-450) k/uL Neutrophils # 9.5 H (1.3-7.7) k/uL Lymphocytes # 0.2 L (1.0-4.8) k/uL D-Dimer (<0.60) mg/L FEU Sodium (137-145) mmol/L Potassium (3.5-5.1) mmol/L Chloride (98-107) mmol/L Carbon Dioxide (22-30) mmol/L BUN (7-17) mg/dL Glucose (74-99) mg/dL POC Glucose (mg/dL) 107 H 174 H (75-99) mg/dL Ferritin (10.0-291.0) ng/mL ALT (4-34) U/L Lactate Dehydrogenase (313-618) U/L Total Protein (6.3-8.2) g/dL 12/12/20 12/12/20 Range/Units 05:50 05:50 RDW (11.5-15.5) % Plt Count (150-450) k/uL Neutrophils # (1.3-7.7) k/uL Lymphocytes # (1.0-4.8) k/uL D-Dimer 2.09 H (<0.60) mg/L FEU Sodium 128 L (137-145) mmol/L Potassium 3.4 L (3.5-5.1) mmol/L Chloride 89 L (98-107) mmol/L Carbon Dioxide 35 H (22-30) mmol/L BUN 23 H (7-17) mg/dL Glucose 116 H (74-99) mg/dL POC Glucose (mg/dL) (75-99) mg/dL Ferritin 440.6 H (10.0-291.0) ng/mL ALT 44 H (4-34) U/L Lactate Dehydrogenase 950 H (313-618) U/L Total Protein 5.9 L (6.3-8.2) g/dL Assessment and Plan Assessment: -Acute severe hypoxic respiratory failure Secondary to Covid 19 pneumonia: Initially Requiring BiPAP. Currently on Airvo 50 L and 45% FiO2.. patient was started on Solu-Medrol, multivitamins and DVT prophylaxis. Completed remdesivir 5 day course.. -Severe thrombocytopenia possible drug-induced and also related to oral infection. -Chronic persistent asthma mild acute exacerbation secondary to Covid 19. Continued on steroids and Symbicort and breathing treatments. -Hyperlipidemia -Hypothyroidism -History of gout . Not in exacerbation. Colchicine has been discontinued due to severe thrombocytopenia. -Peripheral edema: Due to probably chronic venous stasis and patient will be resumed on Lasix oral. -Hiatal hernia with gastroesophageal reflux disease patient was resumed on Prilosec -GI prophylaxis as well as Lovenox for DVT prophylaxis. CODE STATUS; full code Plan: Patient will be continued on current high flow oxygen and titrate down FiO2. Continued on IV steroids and breathing treatments as needed. Patient was transfused with 2 units of FFP and 1 unit of platelets on 12/11/2020. Monitor platelet count closely and transfuse if the platelet count is less than 10 K Heparin has been discontinued. Platelet factor 4 antibodies negative. LFTs are within normal limits. Coags are within normal limits as well. Colchicine has been discontinued. Continue to monitor the patient in the MICU. Pulmonary and hematology is on board. Time with Patient: Greater than 30
--- NOTE | 2020-12-14 09:58 | P.PN ---
Subjective Progress Note Date: 12/13/20 Principal diagnosis: Acute hypoxic respiratory failure: Secondary to Covid 19 pneumonia 60-year-old female came in with complaints of shortness of breath found to have very low oxygen saturations patient was diagnosed with Covid 19 about 3 days ago patient had having symptoms for about a week. Patient was also company of fever chills patient has low-grade fever here. Patient was seen in [facility] subsequently transferred here patient is presently on 15 L of oxygen. Patient does have history of COPD. Patient was started on Decadron. Pulmonary was consulted. She was complaining of for cough without any significant sputum production. 11/21/2020 Patient doesn't feel any better patient remains on 15 L of oxygen along with Ventimask. Breasts will be replaced patient has highly elevated inflammatory markers although d-dimer is 0.36 pulmonology will evaluate the patient to evaluate for the need for Remdesivir. 11/22/2020 Patient is currently in MICU. Awake alert and oriented x3. On BiPAP with FiO2 100% saturating at 99%. Patient is still short of breath with tachypnea.. Patient was febrile with T-max 101 Laboratory test showed D-dimer level 0.78, ferritin 1436.9, LDH 1940 and CRP 143.6 and CK 589. UA negative for infection. Procalcitonin level is 1.28. Patient is being treated with remdesivir, dexamethasone and Lovenox. On antibiotics of ceftriaxone and azithromycin. Pulmonary is following. Chest x-ray showed slight worsening of patchy infiltrates bilaterally. Findings can be compatible with atypical pneumonia. 11/23/2020 Patient is currently in the MICU. Awake alert and oriented. On BiPAP support. Denied any chest pain. Cough and shortness of breath. Mainly dry cough. Afebrile. Patient is being continued dexamethasone 6 mg daily and remdesivir course. On anticoagulation. Chest x-ray showed diffuse increasing groundglass opacities. Correlate for pulmonary edema and ARDS. Atypical pneumonia is within differential. Patient was also started ceftriaxone and azithromycin for possible bacterial pneumonia underlying with elevated procalcitonin level. Pulmonary is on board.60-year-old female came in with compensative shortness of breath found to have very low oxygen saturations patient was diagnosed with Covid 19 about 3 days ago patient had having symptoms for about a week. Patient was also company of fever chills patient has low-grade fever here. Patient was seen in [facility] subsequently transferred here patient is presently on 15 L of oxygen. Patient does have history of COPD. Patient was started on Decadron. Pulmonary was consulted. She was complaining of for cough without any significant sputum production. 11/24/2020, patient is seen for a follow-up. The patient is currently still on a BiPAP with an FiO2 of 100%; feeling slightly better; remains afebrile. The chest x-ray remains unchanged and the patient continues to have diffuse but the pulmonary infiltrates consistent with code 19 related pneumonia. Her inflammatory markers are quite abnormal. At LDH from today was 1006 and 41, and her CRP was 59. Note that the CRP level was slightly lower. The pro-calcitonin level from yesterday was 0.18. CPKs nonelevated and a triglyceride level is at 154. The patient has a d-dimer of 14.8. She remains on Lovenox at a dose of 40 mg subcu every 12 hours which is in the order of 0.5 mg per KG every 12 hours. In terms of treatment, the patient remains on Decadron 20 mg IV on the daily basis and she is on Remdesivir and she also received 2 doses of Actemra 400 mg IV. Her oral intake was noted to be quite low as the patient is unable to get herself off the BiPAP for oral intake. Based on that, the patient will be given a PICC line today and she'll be started on TPN for nutritional support to maintain her nutritional status. No fever. No chills. Hemodynamically stable. No other issues for now. Her CODE STATUS is full code. 11/25/2020 patient is seen and evaluated in room for a follow-up; patient became hypoxic again and she had to be placed back on an FiO2 of 100% with a BiPAP pressure of 14/6 cm of water. Her current respiratory rate is in the order of 22-30 breaths per minute. The patient is comfortable. She is tolerating the treatment well. Laboratory review shows d-dimer is up to 30.01. Rest of the inflammatory markers show an LDH level of 1862 and the CRP is down to 40.8. Pro-calcitonin level was at 0.18. patient has received Lovenox at a dose of 40 mg subcu every 12 hours which is in the order of 0.5 mg per KG every 12 hours. In terms of treatment, the patient remains on Decadron 20 mg IV on the daily basis they #4 and she is on Remdesivir #5 and she also received 2 doses of Actemra 400 mg IV. Meanwhile be also inserted a PICC line in the left upper extremity and the patient was started on TPN for nutritional support. No altered mentation pH is resting comfortably in bed. Is slightly higher since the patient was started on TPN and septal 187 and the will going to put this patient on sliding scale blood sugar coverage. 11/26/2020 Patient remains in ICU and remains awake and alert; currently on BiPAP; FiO2 was weaned down to 70% with stable O2 saturation; patient remains on high-dose Decadron in form of 20 mg IV daily; inflammatory markers slowly trending down including CRP of 22, LDH of 1776, d-dimer 23.4 Patient is currently on TPN for nutrition at a rate of 45 hoursalong with blood glucose monitoring every 4 hours with insulin sliding scale; remains stable on IV fluids at 50 mL per hour Patient is being followed by pulmonology service and recommended to continue with Lovenox 40 mg subcu every 12 hours, Decadron 20 mg IV daily along with completing REM treatment; patient has received 2 doses of Actemra 400 mg IV 12/08/2020 patient is seen in follow-up in the intensive care unit. She is awake and alert. She is still requiring AirVo high flow oxygen at 60 L/m and 70% FiO2 to maintain O2 saturations in the 90s. No current IV fluids. She is receiving her second unit of convalescent plasma. Chest x-ray continues to show bilateral patchy perihilar and basilar infiltrates. Not much improvement. White count 9.9. Hemoglobin 11.7. Platelet count 63,000. D-dimer 3.60. Sodium 133. Potassium 3.3. Bicarb 36. Creatinine 0.63. AST 24. ALT 46. LDH 1101. C- reactive protein less than 5.0. She remains on IV Solu-Medrol, bronchodilators, Lovenox, colchicine, Pepcid, vitamin supplements. She's also been diuresed with Lasix 40 mg IV every 12 hours. plan is to continue the treatment as indicated above; titrate down FiO2 as tolerated; continue with incentive spirometry 12/09/2020 Patient is seen and evaluated in follow-up in the intensive care unit. She is currently sitting up in a chair at the bedside. Awake and alert in no acute distress. Continues to require AirVo high flow oxygen at 60 L/m at 66% FiO2. She is able to tolerate a bit more activity without significant desaturations. The amount of time that it takes for her to recover is getting less. Improving in that regard. Chest x-ray still revealing bilateral scattered infiltrates. Currently no IV fluids running. Appetite is improving. White count 10.7. Hemoglobin 11.7. Platelet count dropped to 35,000. Lymphocytes 0.3. D-dimer 3.3. Sodium 132. Potassium 3.9. Creatinine 0.63. Bicarb 32. LDH 1080. C- reactive protein less than 5. She remains on IV Solu-Medrol, bronchodilators, Lovenox, colchicine, Pepcid, vitamin supplements. Diuresed with Lasix 40 mg IV every 12 hours. She remains a negative balance. Continue the current treatment plan; Titrate down the FiO2 as tolerated; Co ntinue incentive spirometry; Increase activity as tolerated 12/10/2020 Patient is seen and evaluated in follow-up in the intensive care unit; resting comfortably in bed. She remains awake and alert in no acute distress; oxygen requirements continued to improve slowly. She is on the AirVo at 55 L/m and 55% FiO2. No IV fluids. She remains on IV Solu-Medrol, bronchodilators, colchicine, Pepcid, vitamin supplements, IV diuretics. She remains a negative balance. Intensive care service is following and recommending to continue to monitor in ICU 12/11/2020 Patient is currently in the MICU. On Airvo at 15 L and FiO2 of 50%. Currently sitting in the chair and awake alert and oriented. Tolerating oral diet. Next and patient is being continued on IV Solu-Medrol. Patient is having severe thrombocytopenia with platelet count 9000 today. Other laboratory data showed sodium 131 potassium 3.6) 91 BUN 31 and creatinine 0.59 Patient was started on 40 mg of IV Lasix daily. 12/12/2020 Patient is currently in MICU. Sitting in a chair comfortably. Requiring high flow oxygen at 15 L and FiO2 45%. Chest x-ray showed diffuse bilateral pulmonary infiltrates without any significant change. Breathing status is slightly better. Platelet count is at 6000 today. Patient is being continued on Solu-Medrol 40 mg IV every 8 hours. Patient is getting another platelet transfusion today. Inflammatory markers are trending down. Pulmonary and oncology is on board. 12/13/2020 Patient is in the MICU and oxygen requirement slightly lower than yesterday currently on high flow oxygen via nasal cannula. Breathing status is stable but still having exertional dyspnea. Platelet count is 8 came today. No complains of bruising or bleeding episodes. Laboratory data showed sodium 127, potassium 3.2, chloride 91, bicarb 23, BUN 23 and creatinine 0.57 Patient has been afebrile. No nausea vomiting or abdominal pain. Tolerating oral diet. No diarrhea. No chest pain. Current medications reviewed. All inpatient medications were reviewed and appropriate changes in these medications as dictated in the interval history and assessment and plan. Objective - Vital Signs Vital signs: Vital Signs Temp 98.0 F 12/13/20 04:00 Pulse 106 H 12/13/20 10:00 Resp 29 H 12/13/20 10:00 BP 114/80 12/13/20 10:00 Pulse Ox 99 12/13/20 10:00 Intake & Output 12/12/20 12/13/20 12/13/20 18:59 06:59 18:59 Intake Total 1649 1200 1160 Output Total 1700 960 Balance -51 240 1160 Weight 75.9 kg 75.9 kg Intake: Oral 1320 1200 360 Tube Feeding 800 Blood Product 329 Platelet Irr Pheresis Pas 329 -C Unit [id number] Output: Urine 1700 960 Other: Voiding Method Indwelling Catheter Indwelling Catheter Indwelling Catheter - Exam - Exam GENERAL: The patient is alert and oriented x3, not in any acute distress. Well developed, well nourished. HEENT: Pupils are round and equally reacting to light. EOMI. No scleral icterus. No conjunctival pallor. Normocephalic, atraumatic. No pharyngeal erythema. No thyromegaly. CARDIOVASCULAR: S1 and S2 present. No murmurs, rubs, or gallops. PULMONARY: Diffuse bilateral rhonchi without any significant wheezing fairly good air entry into bilateral lung ruiz ABDOMEN: Soft, nontender, nondistended, normoactive bowel sounds. No palpable organomegaly. MUSCULOSKELETAL: No joint swelling or deformity. EXTREMITIES: No cyanosis, clubbing, patient does have some pedal edema NEUROLOGICAL: Gross neurological examination did not reveal any focal deficits. - Labs CBC & Chem 7: 12/14/20 04:00 12/14/20 04:15 Labs: Abnormal Lab Results - Last 24 Hours (Table) 12/12/20 12/12/20 12/12/20 Range/Units 16:57 17:03 21:41 WBC (3.8-10.6) k/uL RBC (3.80-5.40) m/uL Hgb (11.4-16.0) gm/dL Hct (34.0-46.0) % RDW (11.5-15.5) % Plt Count (150-450) k/uL Fibrinogen (200-500) mg/dL Sodium (137-145) mmol/L Potassium 3.4 L (3.5-5.1) mmol/L Chloride (98-107) mmol/L Carbon Dioxide (22-30) mmol/L BUN (7-17) mg/dL Glucose (74-99) mg/dL POC Glucose (mg/dL) 111 H 125 H (75-99) mg/dL 12/13/20 12/13/20 12/13/20 Range/Units 05:00 05:00 06:57 WBC 10.9 H (3.8-10.6) k/uL RBC 3.65 L (3.80-5.40) m/uL Hgb 10.8 L (11.4-16.0) gm/dL Hct 32.5 L (34.0-46.0) % RDW 17.1 H (11.5-15.5) % Plt Count 8 L* (150-450) k/uL Fibrinogen (200-500) mg/dL Sodium 127 L (137-145) mmol/L Potassium 3.2 L (3.5-5.1) mmol/L Chloride 91 L (98-107) mmol/L Carbon Dioxide 33 H (22-30) mmol/L BUN 23 H (7-17) mg/dL Glucose 72 L (74-99) mg/dL POC Glucose (mg/dL) 58 L (75-99) mg/dL 12/13/20 12/13/20 12/13/20 Range/Units 07:12 07:45 10:47 WBC (3.8-10.6) k/uL RBC (3.80-5.40) m/uL Hgb (11.4-16.0) gm/dL Hct (34.0-46.0) % RDW (11.5-15.5) % Plt Count (150-450) k/uL Fibrinogen 181 L (200-500) mg/dL Sodium (137-145) mmol/L Potassium (3.5-5.1) mmol/L Chloride (98-107) mmol/L Carbon Dioxide (22-30) mmol/L BUN (7-17) mg/dL Glucose (74-99) mg/dL POC Glucose (mg/dL) 65 L 117 H (75-99) mg/dL Assessment and Plan Assessment: -Acute severe hypoxic respiratory failure Secondary to Covid 19 pneumonia: Initially Requiring BiPAP. Currently on Airvo 50 L and 45% FiO2--13L NC.. p atient is being continued on Solu-Medrol, multivitamins and DVT prophylaxis. Completed remdesivir 5 day course.. -Severe thrombocytopenia possible drug-induced and also related to oral infection. -Chronic persistent asthma mild acute exacerbation secondary to Covid 19. Continued on steroids and Symbicort and breathing treatments. -Hyperlipidemia -Hypothyroidism -History of gout . Not in exacerbation. Colchicine has been discontinued due to severe thrombocytopenia. -Peripheral edema: Due to probably chronic venous stasis and patient will be resumed on Lasix oral. -Hiatal hernia with gastroesophageal reflux disease patient was resumed on Prilosec -GI prophylaxis as well as Lovenox for DVT prophylaxis. CODE STATUS; full code Plan: Patient will be continued on current high flow oxygen and titrate down FiO2. Continued on IV steroids and breathing treatments as needed. Patient was transfused with 2 units of FFP and 1 unit of platelets on 12/11/2020. Monitor platelet count closely and transfuse if the platelet count is less than 10 K Heparin has been discontinued. Platelet factor 4 antibodies negative. LFTs are within normal limits. Coags are within normal limits as well. Colchicine has been discontinued. Continue to monitor the patient in the MICU. Pulmonary and hematology is on board. Time with Patient: Greater than 30
--- NOTE | 2020-12-14 10:07 | P.PN ---
Subjective Progress Note Date: 12/14/20 Principal diagnosis: Acute hypoxic respiratory failure secondary to CoVID 19 pneumonia 60-year-old here patient hospitalized for COVID 19 related pneumonia and hypoxemia. The patient was found to have a low oxygen saturation. She was diagnosed having COVID 19 on 11/20/2020. However, her symptoms started approximately a week prior to that as the patient started having generalized weakness, fever and chills. In the hospital at [facility], she was found to be hypoxic and she was placed on 15 L of oxygen by nasal cannula. She was started on Decadron and following that she was transferred to [facility] on 11/20/2020 for further evaluation. On today's evaluation the patient remains on 15 L of oxygen by nasal cannula. Laboratory markers show a LDH of 1482, her CRP is 239, her pro-calcitonin level is at 1.28, her white cell count is at 4.5 and the patient has a lymphopenia with a lymphocyte count of 0.7. The electrolytes all within normal limits. Renal function is within normal limits. Glucose slightly elevated at 235. The chest x-ray is showing bilateral pulmonary infiltrates mainly involving the left lung and or significantly in the right upper lobe area. The patient is known to have COPD/asthma. The patient is also has history of hypothyroidism, hyperlipidemia and gout. She has history of hiatal hernia.. She is on Decadron 6 mg by mouth daily. She is on no DVT prophylaxis is receiving 40 mg of Lovenox her d-dimer level is at 0.36. On 11/22/2020 patient seen in follow-up in intensive care unit. She is awake and alert, oriented 3, she is currently on BiPAP support with pressures of 14/5 and FiO2 of 100%, and her SpO2 is a 99%. Patient states she doesn't feel significantly more short of breath, however she tachypneic with a respiratory rate of 28 BPM, she has been febrile T-max of 10 1F, her pro-calcitonin came back elevated at 1.28 suggesting possibility of bacterial infection. Today we started her on Remdesivir, today's date to off treatment, her inflammatory markers are trending up, LDH is up to 1940, CRP is 143.6, d-dimer is 0.78, and is on prophylactic dose of Lovenox 40 mg daily, electrolytes and renal profile are unremarkable. O'Christiano is 9.2, hemoglobin is 11, platelet count is 322, neutrophils is 8.3, and in lymphocyte count is 0.5. Patient is on day 2 of high-dose IV steroids 20 mg daily. Patient is awake and alert, oriented 3, yesterday she reversed her CODE STATUS, from DO NOT RESUSCITATE to full code. On 11/23/2020 patient seen in follow-up in the intensive care unit, she remains on BiPAP support, has been very much dependent on it, and he desaturates rapidly even for short periods when the BiPAP mask is removed to give the patient oral medications, current BiPAP settings of 14/60 and FiO2 of 100%, her pulse ox is 93%. Awake and alert, she is oriented 3, she states her breathing is stable as long as she does not move and lays very still in bed. She is complaining of a dry cough, no chest discomfort, no palpitations. She is in sinus mechanism, bradycardic with a rate of 55 BPM, blood pressure is 116/66, not on any vasopressor support, her current IV fluids are 0.9 normal saline at a rate of 20 ML per hour. Patient's pattern has improved, T-max in last 24 hours 99.5F. Urinalysis was sent and shows no signs of infection, blood cultures will be sent today, last pro calcitonin yesterday was 1.29, repeat pro calcitonin has been sent and pending at this time, patient was empirically placed on azithromycin and Rocephin. Maintenance on high-dose IV steroids currently with Decadron 20 mg IV on the daily basis. Absent been reviewed, her d-dimer has trended up, and is at 5.13 today, her Lovenox dose will be adjusted 0.5 mg/kg of body weight twice daily, LDH is down slightly, 1670, CRP is relatively stable at 140.5. Electronic are within normal limits, patient is mildly prerenal, BUN is 30 creatinine 0.74, she also remains on oral dose of Lasix and she has had very limited oral intake. She has only been able to take one or 2 sips of oral liquids and she states things do not taste right. White blood cell count is 6.5, hemoglobin is 10.5. His chest x-ray has been reviewed and diffuse increasing groundglass opacities. I discussed the patient's CODE STATUS with he yadi, and she is agreeable to CPR, intubation, defibrillation, CODE STATUS will be changed to full code On 12/04/2020 patient seen in follow-up in the intensive care unit, she is off the BiPAP support, and currently on high flow oxygen per Airvo 60 L/m and FiO2 of 70%, with a pulse ox between 92-94%, she is breathing comfortably, denies any chest discomfort, she sitting up in a chair, she looks comfortable, she has had no fever or chills. Today's chest x-ray shows coarse infiltrates bilaterally w ith slight interval progression. Patient is tolerating oral diet. She is off the TPN. She is on 0.9 normal saline at a rate of 10 ML per hour, today's labs have been reviewed, d-dimer is improved from a few days back and is down to 6.70, patient is on Lovenox 40 mg twice a day, white blood cell count is 9.1, hemoglobin is 10.8, sodium is 134, potassium is 4.4, chloride is 96, CO2 is 34, B1 is 20, creatinine 0.64 LDH is 1660, CRP is less than 5. Patient remains on daily dose of IV Lasix, colchicine, Pepcid 20 mg twice a day, bronchodilators, IV Solu-Medrol 40 mg every 8 hours On 12/05/2020 patient is seen in follow-up in the intensive care unit, she remains on high flow oxygen per Airvo at 60 L/m and FiO2 of 75%, in the night her FiO2 have to be bumped up a little bit from a 70% because of an episode of desaturation. She also required 4 hours on BiPAP support. However this morning patient appears to be calm and comfortable, sitting up in the recliner, in her pulse ox on the Airvo at previously mentioned settings is 98-100%, she is breathing comfortaby. Patient is awake and alert, oriented 3, no altered mentation, she is in sinus mechanism, she is on 0.9 at 10 ML per hour, no other drips, she's been afebrile, vital signs have been stable. Chest x-ray has been reviewed, and it shows patchy perihilar and basilar infiltrates persistence without significant change. She remains on once daily dose of Lasix, and she is in -1090 mL fluid balance over the last 24 hours. She has been tolerating oral intake, no nausea vomiting or abdominal pain. Currently patient remains on IV steroids with Solu-Medrol 40 mg every 8 hours, colchicine, vitamin C D and zinc, melatonin, and bronchodilators. Today's d-dimer is 7.58. And patient remains on Lovenox at 40 mg twice daily which is 0.5 mg/kg of body weight twice daily. Patient also continues on Zosyn for empiric antibiotic coverage. Blood cultures have shown no growth. Follow-up LDH is trending down on today's labs and is down to 1370, CRP is less than 5. On 12/06/2020 patient seen in follow-up in intensive care unit, patient remains on Airvo at 60L and Fio2 75%. Satting between 88-91%, did require BiPap support last night for a few hours, currently back on Airvo. Patient is breathing comfortably, no acute distress, no chest discomfort. No fever, or chills. Patient is currently on 0.9 NS at 10 ml/hr. patient remains on Lasix, she is in -1.8 L fluid balance over the last 24 hours, however her chest x-ray shows worsening airspace disease, and pulmonary edema. Blood pressure has been stable, today's labs have been reviewed, showing serum sodium of 135, potassium is 4.3, chloride is 97, CO2 is 24, B1 is 24, creatinine 0.64. Proalcitonin level came back negative, we can stop the Zosyn cultures are negative. No fever or chills. No nausea vomiting diarrhea. On 12/07/2020 patient seen in follow-up in intensive care unit, she remains on high flow oxygen per Airvo at 60 L, and FiO2 of 70%, and her pulse ox is 90-91%, looks fairly comfortable, she is sitting up on the edge of the bed, appears to be in no acute distress, she is getting ready to eat breakfast this morning, she has been afebrile, vital signs have been stable. her chest x-ray today showed diffuse increased lung markings more focal in the right lower lobe, patient has received increased dose of Lasix, and her chest x-ray shows better aeration compared to yesterday's exam.today's labs have been reviewed, her d-dimer is trending down, down to 5.40, white count is 10.2, hemoglobin is 11.4, sodium is 134, potassium is 3.3, chloride 96, CO2 is 23, BUN is 26 creatinine 0.64. LDH is 1300, CRP is less than 5, blood culture has shown no growth. The patient is seen today 12/08/2020 in follow-up in the intensive care unit. She is awake and alert. She is still requiring AirVo high flow oxygen at 60 L/m and 70% FiO2 to maintain O2 saturations in the 90s. No current IV fluids. She is receiving her second unit of convalescent plasma. Chest x-ray continues to show bilateral patchy perihilar and basilar infiltrates. Not much improvement. White count 9.9. Hemoglobin 11.7. Platelet count 63,000. D-dimer 3.60. Sodium 133. Potassium 3.3. Bicarb 36. Creatinine 0.63. AST 24. ALT 46. LDH 1101. C-reactive protein less than 5.0. She remains on IV Solu-Medrol, bronchodilators, Lovenox, colchicine, Pepcid, vitamin supplements. She's also been diuresed with Lasix 40 mg IV every 12 hours. The patient is seen today 12/09/2020 in follow-up in the intensive care unit. She is currently sitting up in a chair at the bedside. Awake and alert in no acute distress. Continues to require AirVo high flow oxygen at 60 L/m at 66% FiO2. She is able to tolerate a bit more activity without significant desaturations. The amount of time that it takes for her to recover is getting less. Improving in that regard. Chest x-ray still revealing bilateral scattered infiltrates. Currently no IV fluids running. Appetite is improving. White count 10.7. Hemoglobin 11.7. Platelet count dropped to 35,000. Lymphocytes 0.3. D-dimer 3.3. Sodium 132. Potassium 3.9. Creatinine 0.63. Bicarb 32. LDH 1080. C-reactive protein less than 5. She remains on IV Solu- Medrol, bronchodilators, Lovenox, colchicine, Pepcid, vitamin supplements. Diuresed with Lasix 40 mg IV every 12 hours. She remains a negative balance. The patient is seen today 12/10/2020 in follow-up in the intensive care unit. He is currently resting comfortably in bed. She remains awake and alert in no acute distress. Her oxygen requirements continued to improve slowly. She is on the AirVo at 55 L/m and 55% FiO2. No IV fluids. Her appetite has been fair. White count 9.5. Hemoglobin 12.4. Platelet count 15,000. D-dimer 2.99. Sodium 134. Potassium 3.2. Creatinine 0.61. She remains off Lovenox. HIT labs are pending. She remains on IV Solu-Medrol, bronchodilators, colchicine, Pepcid, vitamin supplements, IV diuretics. She remains a negative balance. The patient is seen today 12/14/2020 in follow-up in the intensive care unit. She is currently sitting up in a chair at the bedside. Awake and alert in no acute distress. She is down to 10 L high flow nasal cannula and maintaining O2 saturations in the low 90s. She is feeling stronger each day. She still has significant shortness of breath with minimal exertion. Blood cultures reveal no growth. White count 6.0. Hemoglobin 10.3. Platelets are up to 28,000. Sodium 127. Potassium 3.4. Creatinine 0.49. She is receiving IVIG per hematology. She remains on fluconazole for her thrush. Remains on Symbicort and albuterol. She is down to prednisone 20 mg daily. Currently in a negative balance. She is tolerating her diet. Objective - Vital Signs Vital signs: Vital Signs Temp 98.0 F 12/14/20 04:00 Pulse 78 12/14/20 07:00 Resp 16 12/14/20 07:00 BP 121/86 12/14/20 07:00 Pulse Ox 100 12/14/20 07:00 Intake & Output 12/13/20 12/14/20 12/14/20 18:59 06:59 18:59 Intake Total 2773 2160 Output Total 2700 1675 100 Balance 73 485 -100 Weight 75.9 kg 75.8 kg Intake: Intake, IV Titration 900 Amount Immune Globulin ( 400 Gammagard) 20 gm In Empty Bag 1 bag @ Titrate IV . Q0M ONE Rx#:[id number] Sodium Chloride 0.9% 500 500 ml 500 ml @ 999 mls/hr IV .Q31M ONE Rx#:[id number] Oral 1200 2160 Blood Product 673 Platelet Pheresis Pas 348 Psoralen Unit [id number] Output: Urine 2700 1675 100 Other: Voiding Method Indwelling Catheter Indwelling Catheter - Exam GENERAL EXAM: Alert, pleasant, 60-year-old female patient on 10 L high flow nasal cannula with O2 saturations in the low 90s, comfortable in no apparent distress. HEAD: Normocephalic/atraumatic. EYES: Normal reaction of pupils, equal size. Conjunctiva pink, sclera white. NOSE: Clear with pink turbinates. THROAT: No erythema or exudates. NECK: No masses, no JVD, no thyroid enlargement, no adenopathy. CHEST: No chest wall deformity. Symmetrical expansion. LUNGS: Equal air entry with diffuse scattered ronchi, crackles in the bases, right greater than left CVS: Regular rate and rhythm, normal S1 and S2, no gallops, no murmurs, no rubs ABDOMEN: Soft, nontender. No hepatosplenomegaly, normal bowel sounds, no guarding or rigidity. EXTREMITIES: No clubbing, no edema, no cyanosis, 2+ pulses and upper and lower extremities. MUSCULOSKELETAL: Muscle strength and tone normal. SPINE: No scoliosis or deformity SKIN: No rashes CENTRAL NERVOUS SYSTEM: No focal deficits, tone is normal in all 4 extremities. PSYCHIATRIC: Alert and oriented -3. Appropriate affect. Intact judgment and insight. - Labs CBC & Chem 7: 12/14/20 04:00 12/14/20 04:15 Labs: Abnormal Lab Results - Last 24 Hours (Table) 12/13/20 12/14/20 12/14/20 Range/Units 10:47 04:00 04:00 RBC 3.42 L (3.80-5.40) m/uL Hgb 10.3 L (11.4-16.0) gm/dL Hct 30.7 L (34.0-46.0) % RDW 16.9 H (11.5-15.5) % Plt Count 28 L D (150-450) k/uL Fibrinogen 181 L 192 L (200-500) mg/dL Sodium (137-145) mmol/L Potassium (3.5-5.1) mmol/L Chloride (98-107) mmol/L Carbon Dioxide (22-30) mmol/L BUN (7-17) mg/dL Creatinine (0.52-1.04) mg/dL Glucose (74-99) mg/dL 12/14/20 Range/Units 04:15 RBC (3.80-5.40) m/uL Hgb (11.4-16.0) gm/dL Hct (34.0-46.0) % RDW (11.5-15.5) % Plt Count (150-450) k/uL Fibrinogen (200-500) mg/dL Sodium 127 L (137-145) mmol/L Potassium 3.4 L (3.5-5.1) mmol/L Chloride 94 L (98-107) mmol/L Carbon Dioxide 32 H (22-30) mmol/L BUN 18 H (7-17) mg/dL Creatinine 0.49 L (0.52-1.04) mg/dL Glucose 68 L (74-99) mg/dL Assessment and Plan Assessment: 1 Acute Covid 19 related pneumonia with bilateral pulmonary infiltrates most significant in the right upper lobe and the left lung seems to be diffusely infiltrated 2 Acute severe hypoxic respiratory failure, slow to progress. Currently 10 L high flow nasal cannula 3 Thrombocytopenia, probably drug induced could be related to colchicine a lthough the possibility of other drugs or even consumptive thrombocytopenia related to viral infection or even HIT note that the heparin-induced thrombocytopenia antibodies came back negative and the patient received platelets, and today on 12/14/2020 is up to 28,000. Receiving IVIG per hematology. 4 Chronic persistent bronchial asthma with an FEV1 of 82-87% on outpatient basis maintained on Symbicort 5 Steroid-induced hyperglycemia, improved 6 Hypertension 7 Hypothyroidism 8 Osteoarthritis and gout 9 Peripheral neuropathy involving lower extremities 10 Peripheral vascular disease 11 Chronic normocytic anemia 12 More than 10-sbep-[id number] smoking history patient is currently an ex-smoker 13 Hiatal hernia with reflux Plan: The patient was seen and evaluated by Dr. Elena Labs reviewed. See IVIG. Platelets 28,000 Transfer her out to the regular medical floor today Titrate down the FiO2 as tolerated Continue incentive spirometry Increase activity as tolerated We will continue to follow and make further recommendations based on her clinical status I, the cosigning physician, performed a history & physical examination of the patient. Lungs sounds with bilateral scattered rhonchi, crackles in the bases, right greater than left. Maintaining good O2 saturations in the 90s on 10 L high flow nasal cannula. I discussed the assessment and plan of care with my nurse practitioner, Dang Guillen. I attest to the above note as dictated by her.
[2020-12-14] MEDS: SODIUM CHLORIDE TAB 1 GM TAB PO SCH ×3 (11:36→21:56)
[2020-12-14 11:57] LABS: Glucose,Whole Blood 83 mg/dL (75-99)
[2020-12-14] MEDS ORDERED: IMMUNE GLOBULIN (GAMMAGARD) 20 GM in EMPTY BAG 1 BAG IV ONE (12:00)
--- NOTE | 2020-12-14 13:37 | P.PN ---
Subjective Progress Note Date: 12/14/20 Acute hypoxic respiratory failure: Secondary to Covid 19 pneumonia 60-year-old female came in with complaints of shortness of breath found to have very low oxygen saturations patient was diagnosed with Covid 19 about 3 days ago patient had having symptoms for about a week. Patient was also company of fever chills patient has low-grade fever here. Patient was seen in [facility] subsequently transferred here patient is presently on 15 L of oxygen. Patient does have history of COPD. Patient was started on Decadron. Pulmonary was consulted. She was complaining of for cough without any significant sputum production. 11/21/2020 Patient doesn't feel any better patient remains on 15 L of oxygen along with Ventimask. Breasts will be replaced patient has highly elevated inflammatory markers although d-dimer is 0.36 pulmonology will evaluate the patient to evaluate for the need for Remdesivir. 11/22/2020 Patient is currently in MICU. Awake alert and oriented x3. On BiPAP with FiO2 100% saturating at 99%. Patient is still short of breath with tachypnea.. Patient was febrile with T-max 101 Laboratory test showed D-dimer level 0.78, ferritin 1436.9, LDH 1940 and CRP 143.6 and CK 589. UA negative for infection. Procalcitonin level is 1.28. Patient is being treated with remdesivir, dexamethasone and Lovenox. On antibiotics of ceftriaxone and azithromycin. Pulmonary is following. Chest x-ray showed slight worsening of patchy infiltrates bilaterally. Findings can be compatible with atypical pneumonia. 11/23/2020 Patient is currently in the MICU. Awake alert and oriented. On BiPAP support. Denied any chest pain. Cough and shortness of breath. Mainly dry cough. Afebrile. Patient is being continued dexamethasone 6 mg daily and remdesivir course. On anticoagulation. Chest x-ray showed diffuse increasing groundglass opacities. Correlate for pulmonary edema and ARDS. Atypical pneumonia is within differential. Patient was also started ceftriaxone and azithromycin for possible bacterial pneumonia underlying with elevated procalcitonin level. Pulmonary is on board.60-year-old female came in with compensative shortness of breath found to have very low oxygen saturations patient was diagnosed with Covid 19 about 3 days ago patient had having symptoms for about a week. Patient was also company of fever chills patient has low-grade fever here. Patient was seen in [facility] subsequently transferred here patient is presently on 15 L of oxygen. Patient does have history of COPD. Patient was started on Decadron. Pulmonary was consulted. She was complaining of for cough without any significant sputum production. 11/24/2020 patient is seen for a follow-up. The patient is currently still on a BiPAP with an FiO2 of 100%; feeling slightly better; remains afebrile. The chest x-ray remains unchanged and the patient continues to have diffuse but the pulmonary infiltrates consistent with code 19 related pneumonia. Her inflammatory markers are quite abnormal. At LDH from today was 1006 and 41, and her CRP was 59. Note that the CRP level was slightly lower. The pro-calcitonin level from yesterday was 0.18. CPKs nonelevated and a triglyceride level is at 154. The patient has a d-dimer of 14.8. She remains on Lovenox at a dose of 40 mg subcu every 12 hours which is in the order of 0.5 mg per KG every 12 hours. In terms of treatment, the patient remains on Decadron 20 mg IV on the daily basis and she is on Remdesivir and she also received 2 doses of Actemra 400 mg IV. Her oral intake was noted to be quite low as the patient is unable to get herself off the BiPAP for oral intake. Based on that, the patient will be given a PICC line today and she'll be started on TPN for nutritional support to maintain her nutritional status. No fever. No chills. Hemodynamically stable. No other issues for now. Her CODE STATUS is full code. 11/25/2020 patient is seen and evaluated in room for a follow-up; patient became hypoxic again and she had to be placed back on an FiO2 of 100% with a BiPAP pressure of 14/6 cm of water. Her current respiratory rate is in the order of 22-30 breaths per minute. The patient is comfortable. She is tolerating the treatment well. Laboratory review shows d-dimer is up to 30.01. Rest of the inflammatory markers show an LDH level of 1862 and the CRP is down to 40.8. Pro-calcitonin level was at 0.18. patient has received Lovenox at a dose of 40 mg subcu every 12 hours which is in the order of 0.5 mg per KG every 12 hours. In terms of treatment, the patient remains on Decadron 20 mg IV on the daily basis they #4 and she is on Remdesivir #5 and she also received 2 doses of Actemra 400 mg IV. Meanwhile be also inserted a PICC line in the left upper extremity and the patient was started on TPN for nutritional support. No altered mentation pH is resting comfortably in bed. Is slightly higher since the patient was started on TPN and septal 187 and the will going to put this patient on sliding scale blood sugar coverage. 11/26/2020 Patient remains in ICU and remains awake and alert; currently on BiPAP; FiO2 was weaned down to 70% with stable O2 saturation; patient remains on high-dose Decadron in form of 20 mg IV daily; inflammatory markers slowly trending down including CRP of 22, LDH of 1776, d-dimer 23.4 Patient is currently on TPN for nutrition at a rate of 45 hoursalong with blood glucose monitoring every 4 hours with insulin sliding scale; remains stable on IV fluids at 50 mL per hour Patient is being followed by pulmonology service and recommended to continue with Lovenox 40 mg subcu every 12 hours, Decadron 20 mg IV daily along with completing REM treatment; patient has received 2 doses of Actemra 400 mg IV 12/08/2020 patient is seen in follow-up in the intensive care unit. She is awake and alert. She is still requiring AirVo high flow oxygen at 60 L/m and 70% FiO2 to maintain O2 saturations in the 90s. No current IV fluids. She is receiving her second unit of convalescent plasma. Chest x-ray continues to show bilateral patchy perihilar and basilar infiltrates. Not much improvement. White count 9.9. Hemoglobin 11.7. Platelet count 63,000. D-dimer 3.60. Sodium 133. Potassium 3.3. Bicarb 36. Creatinine 0.63. AST 24. ALT 46. LDH 1101. C- reactive protein less than 5.0. She remains on IV Solu-Medrol, bronchodilators, Lovenox, colchicine, Pepcid, vitamin supplements. She's also been diuresed with Lasix 40 mg IV every 12 hours. plan is to continue the treatment as indicated above; titrate down FiO2 as tolerated; continue with incentive spirometry 12/09/2020 Patient is seen and evaluated in follow-up in the intensive care unit. She is currently sitting up in a chair at the bedside. Awake and alert in no acute distress. Continues to require AirVo high flow oxygen at 60 L/m at 66% FiO2. She is able to tolerate a bit more activity without significant desaturations. The amount of time that it takes for her to recover is getting less. Improving in that regard. Chest x-ray still revealing bilateral scattered infiltrates. Currently no IV fluids running. Appetite is improving. White count 10.7. Hemoglobin 11.7. Platelet count dropped to 35,000. Lymphocytes 0.3. D-dimer 3.3. Sodium 132. Potassium 3.9. Creatinine 0.63. Bicarb 32. LDH 1080. C- reactive protein less than 5. She remains on IV Solu-Medrol, bronchodilators, Lovenox, colchicine, Pepcid, vitamin supplements. Diuresed with Lasix 40 mg IV every 12 hours. She remains a negative balance. Continue the current treatment plan; Titrate down the FiO2 as tolerated; Continue incentive spirometry; Increase activity as tolerated 12/10/2020 Patient is seen and evaluated in follow-up in the intensive care unit; resting comfortably in bed. She remains awake and alert in no acute distress; oxygen requirements continued to improve slowly. She is on the AirVo at 55 L/m and 55% FiO2. No IV fluids. She remains on IV Solu-Medrol, bronchodilators, colchicine, Pepcid, vitamin supplements, IV diuretics. She remains a negative balance. Intensive care service is following and recommending to continue to monitor in ICU 12/11/2020 Patient is currently in the MICU. On Airvo at 15 L and FiO2 of 50%. Currently sitting in the chair and awake alert and oriented. Tolerating oral diet. Next and patient is being continued on IV Solu-Medrol. Patient is having severe thrombocytopenia with platelet count 9000 today. Other laboratory data showed sodium 131 potassium 3.6) 91 BUN 31 and creatinine 0.59 Patient was started on 40 mg of IV Lasix daily. 12/12/2020 Patient is currently in MICU. Sitting in a chair comfortably. Requiring high flow oxygen at 15 L and FiO2 45%. Chest x-ray showed diffuse bilateral p ulmonary infiltrates without any significant change. Breathing status is slightly better. Platelet count is at 6000 today. Patient is being continued on Solu-Medrol 40 mg IV every 8 hours. Patient is getting another platelet transfusion today. Inflammatory markers are trending down. Pulmonary and oncology is on board. 12/13/2020 Patient is in the MICU and oxygen requirement slightly lower than yesterday currently on high flow oxygen via nasal cannula. Breathing status is stable but still having exertional dyspnea. Platelet count is 8 came today. No complains of bruising or bleeding episodes. Laboratory data showed sodium 127, potassium 3.2, chloride 91, bicarb 23, BUN 23 and creatinine 0.57 Patient has been afebrile. No nausea vomiting or abdominal pain. Tolerating oral diet. No diarrhea. No chest pain. 12/14/2020 Patient continues to be closely monitored in the ICU Patient is currently maintained on 10 L high flow via nasal cannula and tolerating well. Patient continues to have some abdominal discomfort stating she has not had a bowel movement although felt as if she had to. Patient is passing gas. Patient is up to the bedside commode. Patient was given a dose of lactulose and will continue with as needed. Platelets today are 28 and awaiting to receive immunoglobulin transfusion. Hemoglobin is 10.3. Multiple medical consultations following. Patient is tolerating diet with no reports of nausea or vomiting noted although is very selective as she has a milk ALLERGY. Diet modifications being adjusted. Sodium continues to be low at 127 and potassium is 3.4 and being replaced today. Creatinine is 0.49. Review of systems: Constitutional: No reports of fatigue, fever, or chills Cardiovascular: No reports of chest pain or palpitations Respiratory: No reports of worsening shortness of breath GI: No reports of nausea, vomiting, or diarrhea : No reports of dysuria or retention Neurovascular: No reports of weakness or numbness All inpatient medications were reviewed and appropriate changes in these medications as dictated in the interval history and assessment and plan. Active Medications Acetaminophen (Acetaminophen Tab 325 Mg Tab) 650 mg PO Q4HR PRN PRN Reason: Fever>101 Last Admin: 12/14/20 03:50 Dose: 650 mg Documented by: Albuterol Sulfate (Albuterol Hfa Inhaler) 2 puff INHALATION RT-QID [facility] Last Admin: 12/14/20 13:01 Dose: 2 puff Documented by: Ascorbic Acid (Ascorbic Acid 500 Mg Tab) 500 mg PO DAILY [facility] Last Admin: 12/14/20 09:08 Dose: 500 mg Documented by: Atorvastatin Calcium (Atorvastatin 40 Mg Tab) 40 mg PO [facility] Last Admin: 12/13/20 21:11 Dose: 40 mg Documented by: Budesonide/Formoterol Fumarate (Symbicort 160-4.5 Mcg Inhaler) 2 puff INHALATION RT-BID [facility] Last Admin: 12/14/20 09:19 Dose: 2 puff Documented by: Al Hydroxide/Mg Hydroxide 30 ml/ Lidocaine HCl 30 ml/Diphenhydramine HCl 75 mg/Nystatin 3,000,000 unit 0 ml PO TID [facility] Last Admin: 12/14/20 09:08 Dose: 30 ml Documented by: Gabapentin (Gabapentin 100 Mg Cap) 100 mg PO BID@0800,1200 [facility] Last Admin: 12/14/20 11:42 Dose: 100 mg Documented by: Gabapentin (Gabapentin 300 Mg Cap) 300 mg PO [facility] Last Admin: 12/13/20 21:11 Dose: 300 mg Documented by: Fluconazole/Sodium Chloride (100 mg/ IV Solution) 50 mls @ 50 mls/hr IVPB DAILY [facility] Last Admin: 12/14/20 09:08 Dose: 50 mls/hr Documented by: Immune Globulin 20 gm/ IV (Solution) 200 mls @ 0 mls/hr IV .Q0M ONE; Protocol Stop: 12/15/20 12:01 Immune Globulin 20 gm/ IV (Solution) 200 mls @ 0 mls/hr IV .Q0M ONE; Protocol Stop: 12/15/20 12:01 Insulin Aspart (Insulin Aspart (Novolog) 100 Unit/Ml Vial) 0 unit SQ ACHS [facility]; Protocol Last Admin: 12/14/20 11:57 Dose: Not Given Documented by: Lactulose (Lactulose 20 Gm/30 Ml Cup) 20 gm PO DAILY PRN PRN Reason: Constipation Levothyroxine Sodium (Levothyroxine 75 Mcg Tab) 75 mcg PO DAILY@0630 [facility] Last Admin: 12/14/20 06:21 Dose: 75 mcg Documented by: Melatonin (Melatonin 3 Mg Tablet) 3 mg PO [facility] Last Admin: 12/13/20 21:11 Dose: 3 mg Documented by: Miscellaneous Information (Potassium Replacement Protocol 1 Each Misc) 1 each MISCELLANE DAILY PRN; Protocol PRN Reason: Per Protocol Montelukast Sodium (Montelukast 10 Mg Tab) 10 mg PO [facility] Last Admin: 12/13/20 21:11 Dose: 10 mg Documented by: Nystatin (Nystatin 100,000 Unit/Ml Susp 500,000 Unit/5 Ml Cup) 500,000 unit PO QID [facility] Last Admin: 12/14/20 13:01 Dose: 500,000 unit Documented by: Petrolatum (Petrolatum, White Oint 50 Gm Tube) 1 applic TOPICAL BID PRN PRN Reason: Dry Skin Last Admin: 12/09/20 20:50 Dose: 1 applic Documented by: Pramipexole Dihydrochloride (Pramipexole 0.5 Mg Tab) 0.5 mg PO [facility] Last Admin: 12/13/20 21:11 Dose: 0.5 mg Documented by: Prednisone (Prednisone 20 Mg Tab) 20 mg PO DAILY [facility] Last Admin: 12/14/20 09:08 Dose: 20 mg Documented by: Senna (Sennosides 8.6 Mg Tab) 8.6 mg PO DAILY PRN PRN Reason: Constipation Last Admin: 12/14/20 09:13 Dose: 8.6 mg Documented by: Sodium Bicarbonate (Salt And Soda Mouthwash 1,000 Ml) 5 ml PO 5XD [facility] Last Admin: 12/14/20 11:36 Dose: 5 ml Documented by: Sodium Chloride (Sodium Chloride 0.9% Flush 10 Ml Syringe) 20 ml IV Q4HR PRN PRN Reason: PICC Line Sodium Chloride (Sodium Chloride 0.9% Flush 10 Ml Syringe) 10 ml IV WEEKLY [facility] Last Admin: 12/08/20 14:04 Dose: 10 ml Documented by: Sodium Chloride (Sodium Chloride 0.9% Flush 10 Ml Syringe) 10 ml IV Q4HR PRN PRN Reason: PICC Line Sodium Chloride (Sodium Chloride Tab 1 Gm Tab) 1 gm PO TID [facility] Last Admin: 12/14/20 11:36 Dose: 1 gm Documented by: Sucralfate (Sucralfate 1 Gm Tab) 1 gm PO QID [facility] Last Admin: 12/14/20 12:59 Dose: 1 gm Documented by: Theophylline (Theophylline 24 Hour 300 Mg Cap.Er.24h) 600 mg PO [facility] Last Admin: 12/13/20 21:11 Dose: 600 mg Documented by: Tiotropium [place] (Tiotropium 2.5 Mcg Inhaler) 2 puff INHALATION RT-DAILY [facility] Last Admin: 12/14/20 09:19 Dose: 2 puff Documented by: Zinc Sulfate (Zinc Sulfate 220 Mg Cap) 220 mg PO DAILY [facility] Last Admin: 12/14/20 09:08 Dose: 220 mg Documented by: Objective - Vital Signs Vital signs: Vital Signs Temp 98.6 F 12/14/20 08:00 Pulse 99 12/14/20 10:00 Resp 31 H 12/14/20 10:00 BP 109/82 12/14/20 10:00 Pulse Ox 93 L 12/14/20 10:00 Intake & Output 12/13/20 12/14/20 12/14/20 18:59 06:59 18:59 Intake Total 2773 2160 50 Output Total 2700 1675 1699 Balance 73 021 -1649 Weight 75.9 kg 75.8 kg Intake: Intake, IV Titration 900 50 Amount Fluconazole in NaCl,Iso- 50 Osm 100 mg In Saline 1 50ml.bag @ 50 mls/hr IVPB DAILY [facility] Rx#:[id number] Immune Globulin ( 400 Gammagard) 20 gm In Empty Bag 1 bag @ Titrate IV . Q0M ONE Rx#:[id number] Sodium Chloride 0.9% 500 500 ml 500 ml @ 999 mls/hr IV .Q31M ONE Rx#:[id number] Oral 1200 2160 Blood Product 673 Platelet Pheresis Pas 348 Psoralen Unit [id number] Output: Urine 2700 1675 1699 Other: Voiding Method Indwelling Catheter Indwelling Catheter - Exam GENERAL: The patient is alert and oriented x3, not in any acute distress. Well developed, well nourished. HEENT: Pupils are round and equally reacting to light. EOMI. No scleral icterus. No conjunctival pallor. Normocephalic, atraumatic. No pharyngeal erythema. No thyromegaly. high flow nasal cannula noted CARDIOVASCULAR: S1 and S2 present. No murmurs, rubs, or gallops. PULMONARY: Diffuse bilateral rhonchi without any significant wheezing fairly go od air entry into bilateral lung ruiz ABDOMEN: Soft, nontender, nondistended, normoactive bowel sounds. No palpable organomegaly. MUSCULOSKELETAL: No joint swelling or deformity. EXTREMITIES: No cyanosis, clubbing, patient does have some pedal edema NEUROLOGICAL: Gross neurological examination did not reveal any focal deficits. - Labs CBC & Chem 7: 12/14/20 04:00 12/14/20 04:15 Labs: Abnormal Lab Results - Last 24 Hours (Table) 12/13/20 12/14/20 12/14/20 Range/Units 10:47 04:00 04:00 RBC 3.42 L (3.80-5.40) m/uL Hgb 10.3 L (11.4-16.0) gm/dL Hct 30.7 L (34.0-46.0) % RDW 16.9 H (11.5-15.5) % Plt Count 28 L D (150-450) k/uL Fibrinogen 181 L 192 L (200-500) mg/dL Sodium (137-145) mmol/L Potassium (3.5-5.1) mmol/L Chloride (98-107) mmol/L Carbon Dioxide (22-30) mmol/L BUN (7-17) mg/dL Creatinine (0.52-1.04) mg/dL Glucose (74-99) mg/dL 12/14/20 Range/Units 04:15 RBC (3.80-5.40) m/uL Hgb (11.4-16.0) gm/dL Hct (34.0-46.0) % RDW (11.5-15.5) % Plt Count (150-450) k/uL Fibrinogen (200-500) mg/dL Sodium 127 L (137-145) mmol/L Potassium 3.4 L (3.5-5.1) mmol/L Chloride 94 L (98-107) mmol/L Carbon Dioxide 32 H (22-30) mmol/L BUN 18 H (7-17) mg/dL Creatinine 0.49 L (0.52-1.04) mg/dL Glucose 68 L (74-99) mg/dL Assessment and Plan Assessment: -Acute severe hypoxic respiratory failure Secondary to Covid 19 pneumonia: Initially Requiring BiPAP. Has completed the Remdesivir and has received convalescent plasma. currently maintained on oral prednisone and being titrated down. -Severe thrombocytopenia possible drug-induced and also related to oral infection. -Chronic persistent asthma mild acute exacerbation secondary to Covid 19. Continued on oral steroids and Symbicort and breathing treatments. -Hyperlipidemia -Hypothyroidism -hypokalemia -History of gout. Not in exacerbation. Colchicine has been discontinued due to severe thrombocytopenia. -Peripheral edema: Due to probably chronic venous stasis -Hiatal hernia with gastroesophageal reflux disease patient was resumed on Prilosec -GI prophylaxis -DVT prophylaxis. early ambulation -full code Plan: Patient will be continued on current high flow oxygen via nasal cannula and titrate down FiO2 as tolerated. Currently on 10L high flow. continue with incentive spirometer. Continued on oral steroids and breathing treatments as needed. Prednisone titrating down. Patient awaiting to receive immunoglobulin. Platelets are 28 today. Encourage oral intake as sodium continues to be low at 127. Adjustments to diet being made and accommodated by nursing staff. Multiple medical consultations following. Potential down grade from the ICU being planned to the selective unit once a bed becomes available. Will continue to monitor closely and make further recommendations based on the clinical course of the patient.
--- NOTE | 2020-12-14 13:39 | P.PN ---
Subjective Progress Note Date: 12/14/20 Principal diagnosis: covid 19, thrombocytopenia (ITP) In f/u today pt is doing better, on regular NC for O2, cough is still very congested, mouth is a little less sore, denies gross bleeding, no pain. Objective - Vital Signs Vital signs: Vital Signs Temp 98.0 F 12/14/20 12:00 Pulse 110 H 12/14/20 13:00 Resp 20 12/14/20 13:00 BP 111/79 12/14/20 12:00 Pulse Ox 98 12/14/20 13:00 Intake & Output 12/13/20 12/14/20 12/14/20 18:59 06:59 18:59 Intake Total 2773 2160 250.183 Output Total 2700 1675 2299 Balance 73 485 -2048.817 Weight 75.9 kg 75.8 kg Intake: Intake, IV Titration 900 250.183 Amount Fluconazole in NaCl,Iso- 50 Osm 100 mg In Saline 1 50ml.bag @ 50 mls/hr IVPB DAILY [facility] Rx#:[id number] Immune Globulin ( 0.183 Gammagard) 20 gm In Empty Bag 1 bag @ Titrate IV . Q0M ONE Rx#:[id number] Immune Globulin ( 200 Gammagard) 20 gm In Empty Bag 1 bag @ Titrate IV . Q0M ONE Rx#:[id number] Immune Globulin ( 400 Gammagard) 20 gm In Empty Bag 1 bag @ Titrate IV . Q0M ONE Rx#:[id number] Sodium Chloride 0.9% 500 500 ml 500 ml @ 999 mls/hr IV .Q31M ONE Rx#:[id number] Oral 1200 2160 Blood Product 673 Platelet Pheresis Pas 348 Psoralen Unit [id number] Output: Urine 2700 4404 2299 Other: Voiding Method Indwelling Catheter Indwelling Catheter Indwelling Catheter - Exam Defer to multiple MD exams today, covid infection. Did speak to pt who is A&Ox4, NAD, good color, able to carry on conversation without too much d ifficulty with breathing, cough sounds congested, she can adjust her own body weight. - Constitutional General appearance: Present: average body habitus, cooperative, no acute distress - EENT Eyes: Present: anicteric sclerae, EOMI ENT: Present: hearing grossly normal - Neurologic Neurologic: Present: CNII-XII intact (grossly ) - Psychiatric Psychiatric: Present: A&O x's 3, appropriate affect, intact judgment & insight - Labs CBC & Chem 7: 12/14/20 04:00 12/14/20 04:15 Labs: Abnormal Lab Results - Last 24 Hours (Table) 12/14/20 12/14/20 12/14/20 Range/Units 04:00 04:00 04:15 RBC 3.42 L (3.80-5.40) m/uL Hgb 10.3 L (11.4-16.0) gm/dL Hct 30.7 L (34.0-46.0) % RDW 16.9 H (11.5-15.5) % Plt Count 28 L D (150-450) k/uL Fibrinogen 192 L (200-500) mg/dL Sodium 127 L (137-145) mmol/L Potassium 3.4 L (3.5-5.1) mmol/L Chloride 94 L (98-107) mmol/L Carbon Dioxide 32 H (22-30) mmol/L BUN 18 H (7-17) mg/dL Creatinine 0.49 L (0.52-1.04) mg/dL Glucose 68 L (74-99) mg/dL Assessment and Plan (1) Thrombocytopenia Narrative/Plan: New onset in the setting of acute illness. No evidence of DIC (today coags continue to be WNL, fibrinogen is increasing, 190's today). IVIG started yesterday. Pt did receive a unit of SDP, I do not think they were crossmatched, her plt count did increase today. Cont supportive care, close monitoring of CBC and for bleeding. HIT ab neg [id number] ordered to rule out unusual presentation of TTP/HUS We will cont to follow with you and order additional studies as appropriate. Current Visit: Yes Status: Acute Priority: High Code(s): D69.6 - THROMBOCYTOPENIA, UNSPECIFIED SNOMED Code(s): 163993761 (2) Mucositis Narrative/Plan: Severe oral irritation. Pt is on zinc and vit C, also nystatin. Cont kools and salt and soda continue. Slowly improving Current Visit: Yes Status: Acute Priority: High Code(s): K12.30 - ORAL MUCOSITIS (ULCERATIVE), UNSPECIFIED SNOMED Code(s): 18618508 (3) Acute ITP Narrative/Plan: 2/2 covid infection. IVIG dosed and being administered. Current Visit: Yes Status: Acute Priority: High Code(s): D69.3 - IMMUNE THROMBOCYTOPENIC PURPURA SNOMED Code(s): 67449088
[2020-12-14 17:00] LABS: Glucose,Whole Blood 127 mg/dL (75-99)
[2020-12-14 20:26] LABS: Glucose,Whole Blood 117 mg/dL (75-99)
[2020-12-14] MEDS: ATORVASTATIN 40 MG TAB PO SCH (21:56)
[2020-12-14] MEDS: PRAMIPEXOLE 0.5 MG TAB PO SCH (21:56)
[2020-12-14] MEDS: MELATONIN 3 MG TABLET PO SCH (21:56)
[2020-12-14] MEDS: THEOPHYLLINE 24 HOUR 300 MG CAP.ER.24H PO SCH (21:56)
[2020-12-14] MEDS: GABAPENTIN 300 MG CAP PO SCH (21:56)
[2020-12-14] MEDS: MONTELUKAST 10 MG TAB PO SCH (21:56)
[2020-12-15] MEDS: SALT AND SODA MOUTHWASH 1,000 ML PO SCH ×6 (00:56→23:03)
[2020-12-15 04:06] LABS: Anisocytosis Slight; HCT 28.9 % (34.0-46.0); HGB 9.5 gm/dL (11.4-16.0); MCH 29.7 pg (25.0-35.0); MCHC 32.8 g/dL (31.0-37.0); MCV 90.5 fL (80.0-100.0); Mean Platelet Volume 8.4; RBC 3.19 m/uL (3.80-5.40); WBC 3.8 k/uL (3.8-10.6)
[2020-12-15 04:13] LABS: Platelet Count 47 k/uL (150-450)
[2020-12-15 04:17] LABS: African American GFR (CKD) >90 (>60 ml/min/1.73 sqM); Anion Gap 2 mmol/L; Blood Urea Nitrogen 21 mg/dL (7-17); Calcium 8.5 mg/dL (8.4-10.2); Carbon Dioxide 29 mmol/L (22-30); Chloride 102 mmol/L (98-107); Glucose 80 mg/dL (74-99); Non-African American GFR(CKD) >90 (>60 ml/min/1.73 sqM); Potassium 3.3 mmol/L (3.5-5.1); Sodium 133 mmol/L (137-145)
[2020-12-15 04:29] LABS: Partial Thromboplastin Time 22.3 sec (22.0-30.0); Prothrombin Time 10.3 sec (9.0-12.0)
[2020-12-15] MEDS: LACTULOSE 20 GM/30 ML CUP PO PRN (06:28)
[2020-12-15] MEDS: LEVOTHYROXINE 75 MCG TAB PO SCH (06:28)
[2020-12-15] MEDS: POTASSIUM CHLORIDE ER 20 MEQ TAB.ER PO SCH ×2 (06:28→09:48)
[2020-12-15 07:00] LABS: Glucose,Whole Blood 73 mg/dL (75-99)
[2020-12-15] MEDS: INSULIN ASPART (NovoLOG) 100 UNIT/ML VIAL SQ SCH ×4 (07:03→21:11)
[2020-12-15] MEDS: SYMBICORT 160-4.5 MCG INHALER INHALATION SCH ×2 (08:52→19:33)
[2020-12-15] MEDS: TIOTROPIUM 2.5 MCG INHALER INHALATION SCH (08:52)
[2020-12-15] MEDS: ALBUTEROL HFA INHALER INHALATION SCH ×4 (08:52→19:33)
[2020-12-15] MEDS: ZINC SULFATE 220 MG CAP PO SCH (09:48)
[2020-12-15] MEDS: predniSONE 20 MG TAB PO SCH (09:48)
[2020-12-15] MEDS: SENNOSIDES 8.6 MG TAB PO PRN (09:48)
[2020-12-15] MEDS: ASCORBIC ACID 500 MG TAB PO SCH (09:48)
[2020-12-15] MEDS: SUCRALFATE 1 GM TAB PO SCH ×4 (09:48→21:32)
[2020-12-15] MEDS: SODIUM CHLORIDE TAB 1 GM TAB PO SCH ×3 (09:48→21:32)
[2020-12-15] MEDS: GABAPENTIN 100 MG CAP PO SCH ×2 (09:48→11:21)
[2020-12-15] MEDS: NYSTATIN 100,000 UNIT/ML SUSP 500,000 UNIT/5 ML CUP PO SCH ×4 (09:48→21:32)
[2020-12-15] MEDS: MAG HYDROX/AL HYDROX/SIMETH 30 ML, LIDOCAINE VISCOUS 30 ML, diphenhydrAMINE ELIXIR 75 M... PO SCH ×12 (09:49→21:32)
[2020-12-15] MEDS: FLUCONAZOLE IN NACL,ISO-OSM 100 MG in SALINE 1 50ML.BAG IVPB SCH (09:49)
--- NOTE | 2020-12-15 09:53 | P.PN ---
Subjective Progress Note Date: 12/15/20 Principal diagnosis: Acute hypoxic respiratory failure secondary to CoVID 19 pneumonia 60-year-old here patient hospitalized for COVID 19 related pneumonia and hypoxemia. The patient was found to have a low oxygen saturation. She was diagnosed having COVID 19 on 11/20/2020. However, her symptoms started approximately a week prior to that as the patient started having generalized weakness, fever and chills. In the hospital at [place], she was found to be hypoxic and she was placed on 15 L of oxygen by nasal cannula. She was started on Decadron and following that she was transferred to [facility] on 11/20/2020 for further evaluation. On today's evaluation the patient remains on 15 L of oxygen by nasal cannula. Laboratory markers show a LDH of 1482, her CRP is 239, her pro-calcitonin level is at 1.28, her white cell count is at 4.5 and the patient has a lymphopenia with a lymphocyte count of 0.7. The electrolytes all within normal limits. Renal function is within normal limits. Glucose slightly elevated at 235. The chest x-ray is showing bilateral pulmonary infiltrates mainly involving the left lung and or significantly in the right upper lobe area. The patient is known to have COPD/asthma. The patient is also has history of hypothyroidism, hyperlipidemia and gout. She has history of hiatal hernia.. She is on Decadron 6 mg by mouth daily. She is on no DVT prophylaxis is receiving 40 mg of Lovenox her d-dimer level is at 0.36. On 11/22/2020 patient seen in follow-up in intensive care unit. She is awake and alert, oriented 3, she is currently on BiPAP support with pressures of 14/5 and FiO2 of 100%, and her SpO2 is a 99%. Patient states she doesn't feel significantly more short of breath, however she tachypneic with a respiratory rate of 28 BPM, she has been febrile T-max of 10 1F, her pro-calcitonin came back elevated at 1.28 suggesting possibility of bacterial infection. Today we started her on Remdesivir, today's date to off treatment, her inflammatory markers are trending up, LDH is up to 1940, CRP is 143.6, d-dimer is 0.78, and is on prophylactic dose of Lovenox 40 mg daily, electrolytes and renal profile are unremarkable. O'Christiano is 9.2, hemoglobin is 11, platelet count is 322, neutrophils is 8.3, and in lymphocyte count is 0.5. Patient is on day 2 of high-dose IV steroids 20 mg daily. Patient is awake and alert, oriented 3, yesterday she reversed her CODE STATUS, from DO NOT RESUSCITATE to full code. On 11/23/2020 patient seen in follow-up in the intensive care unit, she remains on BiPAP support, has been very much dependent on it, and he desaturates rapidly even for short periods when the BiPAP mask is removed to give the patient oral medications, current BiPAP settings of 14/60 and FiO2 of 100%, her pulse ox is 93%. Awake and alert, she is oriented 3, she states her breathing is stable as long as she does not move and lays very still in bed. She is complaining of a dry cough, no chest discomfort, no palpitations. She is in sinus mechanism, bradycardic with a rate of 55 BPM, blood pressure is 116/66, not on any vasopressor support, her current IV fluids are 0.9 normal saline at a rate of 20 ML per hour. Patient's pattern has improved, T-max in last 24 hours 99.5F. Urinalysis was sent and shows no signs of infection, blood cultures will be sent today, last pro calcitonin yesterday was 1.29, repeat pro calcitonin has been sent and pending at this time, patient was empirically placed on azithromycin and Rocephin. Maintenance on high-dose IV steroids currently with Decadron 20 mg IV on the daily basis. Absent been reviewed, her d-dimer has trended up, and is at 5.13 today, her Lovenox dose will be adjusted 0.5 mg/kg of body weight twice daily, LDH is down slightly, 1670, CRP is relatively stable at 140.5. Electronic are within normal limits, patient is mildly prerenal, BUN is 30 creatinine 0.74, she also remains on oral dose of Lasix and she has had very limited oral intake. She has only been able to take one or 2 sips of oral liquids and she states things do not taste right. White blood cell count is 6.5, hemoglobin is 10.5. His chest x-ray has been reviewed and diffuse increasing groundglass opacities. I discussed the patient's CODE STATUS with he yadi, and she is agreeable to CPR, intubation, defibrillation, CODE STATUS will be changed to full code On 12/04/2020 patient seen in follow-up in the intensive care unit, she is off the BiPAP support, and currently on high flow oxygen per Airvo 60 L/m and FiO2 of 70%, with a pulse ox between 92-94%, she is breathing comfortably, denies any chest discomfort, she sitting up in a chair, she looks comfortable, she has had no fever or chills. Today's chest x-ray shows coarse infiltrates bilaterally w ith slight interval progression. Patient is tolerating oral diet. She is off the TPN. She is on 0.9 normal saline at a rate of 10 ML per hour, today's labs have been reviewed, d-dimer is improved from a few days back and is down to 6.70, patient is on Lovenox 40 mg twice a day, white blood cell count is 9.1, hemoglobin is 10.8, sodium is 134, potassium is 4.4, chloride is 96, CO2 is 34, B1 is 20, creatinine 0.64 LDH is 1660, CRP is less than 5. Patient remains on daily dose of IV Lasix, colchicine, Pepcid 20 mg twice a day, bronchodilators, IV Solu-Medrol 40 mg every 8 hours On 12/05/2020 patient is seen in follow-up in the intensive care unit, she remains on high flow oxygen per Airvo at 60 L/m and FiO2 of 75%, in the night her FiO2 have to be bumped up a little bit from a 70% because of an episode of desaturation. She also required 4 hours on BiPAP support. However this morning patient appears to be calm and comfortable, sitting up in the recliner, in her pulse ox on the Airvo at previously mentioned settings is 98-100%, she is breathing comfortaby. Patient is awake and alert, oriented 3, no altered mentation, she is in sinus mechanism, she is on 0.9 at 10 ML per hour, no other drips, she's been afebrile, vital signs have been stable. Chest x-ray has been reviewed, and it shows patchy perihilar and basilar infiltrates persistence without significant change. She remains on once daily dose of Lasix, and she is in -1090 mL fluid balance over the last 24 hours. She has been tolerating oral intake, no nausea vomiting or abdominal pain. Currently patient remains on IV steroids with Solu-Medrol 40 mg every 8 hours, colchicine, vitamin C D and zinc, melatonin, and bronchodilators. Today's d-dimer is 7.58. And patient remains on Lovenox at 40 mg twice daily which is 0.5 mg/kg of body weight twice daily. Patient also continues on Zosyn for empiric antibiotic coverage. Blood cultures have shown no growth. Follow-up LDH is trending down on today's labs and is down to 1370, CRP is less than 5. On 12/06/2020 patient seen in follow-up in intensive care unit, patient remains on Airvo at 60L and Fio2 75%. Satting between 88-91%, did require BiPap support last night for a few hours, currently back on Airvo. Patient is breathing comfortably, no acute distress, no chest discomfort. No fever, or chills. Patient is currently on 0.9 NS at 10 ml/hr. patient remains on Lasix, she is in -1.8 L fluid balance over the last 24 hours, however her chest x-ray shows worsening airspace disease, and pulmonary edema. Blood pressure has been stable, today's labs have been reviewed, showing serum sodium of 135, potassium is 4.3, chloride is 97, CO2 is 24, B1 is 24, creatinine 0.64. Proalcitonin level came back negative, we can stop the Zosyn cultures are negative. No fever or chills. No nausea vomiting diarrhea. On 12/07/2020 patient seen in follow-up in intensive care unit, she remains on high flow oxygen per Airvo at 60 L, and FiO2 of 70%, and her pulse ox is 90-91%, looks fairly comfortable, she is sitting up on the edge of the bed, appears to be in no acute distress, she is getting ready to eat breakfast this morning, she has been afebrile, vital signs have been stable. her chest x-ray today showed diffuse increased lung markings more focal in the right lower lobe, patient has received increased dose of Lasix, and her chest x-ray shows better aeration compared to yesterday's exam.today's labs have been reviewed, her d-dimer is trending down, down to 5.40, white count is 10.2, hemoglobin is 11.4, sodium is 134, potassium is 3.3, chloride 96, CO2 is 23, BUN is 26 creatinine 0.64. LDH is 1300, CRP is less than 5, blood culture has shown no growth. The patient is seen today 12/08/2020 in follow-up in the intensive care unit. She is awake and alert. She is still requiring AirVo high flow oxygen at 60 L/m and 70% FiO2 to maintain O2 saturations in the 90s. No current IV fluids. She is receiving her second unit of convalescent plasma. Chest x-ray continues to show bilateral patchy perihilar and basilar infiltrates. Not much improvement. White count 9.9. Hemoglobin 11.7. Platelet count 63,000. D-dimer 3.60. Sodium 133. Potassium 3.3. Bicarb 36. Creatinine 0.63. AST 24. ALT 46. LDH 1101. C-reactive protein less than 5.0. She remains on IV Solu-Medrol, bronchodilators, Lovenox, colchicine, Pepcid, vitamin supplements. She's also been diuresed with Lasix 40 mg IV every 12 hours. The patient is seen today 12/09/2020 in follow-up in the intensive care unit. She is currently sitting up in a chair at the bedside. Awake and alert in no acute distress. Continues to require AirVo high flow oxygen at 60 L/m at 66% FiO2. She is able to tolerate a bit more activity without significant desaturations. The amount of time that it takes for her to recover is getting less. Improving in that regard. Chest x-ray still revealing bilateral scattered infiltrates. Currently no IV fluids running. Appetite is improving. White count 10.7. Hemoglobin 11.7. Platelet count dropped to 35,000. Lymphocytes 0.3. D-dimer 3.3. Sodium 132. Potassium 3.9. Creatinine 0.63. Bicarb 32. LDH 1080. C-reactive protein less than 5. She remains on IV Solu- Medrol, bronchodilators, Lovenox, colchicine, Pepcid, vitamin supplements. Diuresed with Lasix 40 mg IV every 12 hours. She remains a negative balance. The patient is seen today 12/10/2020 in follow-up in the intensive care unit. He is currently resting comfortably in bed. She remains awake and alert in no acute distress. Her oxygen requirements continued to improve slowly. She is on the AirVo at 55 L/m and 55% FiO2. No IV fluids. Her appetite has been fair. White count 9.5. Hemoglobin 12.4. Platelet count 15,000. D-dimer 2.99. Sodium 134. Potassium 3.2. Creatinine 0.61. She remains off Lovenox. HIT labs are pending. She remains on IV Solu-Medrol, bronchodilators, colchicine, Pepcid, vitamin supplements, IV diuretics. She remains a negative balance. The patient is seen today 12/14/2020 in follow-up in the intensive care unit. She is currently sitting up in a chair at the bedside. Awake and alert in no acute distress. She is down to 10 L high flow nasal cannula and maintaining O2 saturations in the low 90s. She is feeling stronger each day. She still has significant shortness of breath with minimal exertion. Blood cultures reveal no growth. White count 6.0. Hemoglobin 10.3. Platelets are up to 28,000. Sodium 127. Potassium 3.4. Creatinine 0.49. She is receiving IVIG per hematology. She remains on fluconazole for her thrush. Remains on Symbicort and albuterol. She is down to prednisone 20 mg daily. Currently in a negative balance. She is tolerating her diet. The patient is seen today 12/15/2020 in follow-up in the intensive care unit. She remains awake and alert in no acute distress. Currently on 10 L high flow nasal cannula. Maintaining O2 saturations in the low 90s. Still with significant dyspnea on minimal exertion. Working well with physical therapy. Working with the incentive spirometer. She's been up ambulating in her room. Her platelets are increasing back to 47,000. Sodium 133. Thrush is improved but persistent. Steroids have been decreased. She is receiving IVIG. Remains on bronchodilators. She had received 2 units of convalescent plasma. She has received 3 units of platelets. Hematology on the case. Objective - Vital Signs Vital signs: Vital Signs Temp 97.7 F 12/15/20 04:00 Pulse 98 12/15/20 07:00 Resp 31 H 12/15/20 07:00 BP 134/80 12/15/20 07:00 Pulse Ox 92 L 12/15/20 08:53 Intake & Output 12/14/20 12/15/20 12/15/20 18:59 06:59 18:59 Intake Total 108.643 0052 Output Total 3365 1358 Balance -2822.983 -158 Weight 77.8 kg Intake: Intake, IV Titration 542.017 Amount Fluconazole in NaCl,Iso- 50 Osm 100 mg In Saline 1 50ml.bag @ 50 mls/hr IVPB DAILY JEAN CLAUDE Rx#:[id number] Immune Globulin ( 92.017 Gammagard) 20 gm In Empty Bag 1 bag @ Titrate IV . Q0M ONE Rx#:[id number] Immune Globulin ( 400 Gammagard) 20 gm In Empty Bag 1 bag @ Titrate IV . Q0M ONE Rx#:[id number] Oral 720 Tube Feeding 480 Output: Urine 3365 1358 Other: Voiding Method Indwelling Catheter Indwelling Catheter - Exam GENERAL EXAM: Alert, pleasant, 60-year-old female patient on 10 L high flow nasal cannula with O2 saturations in the low 90s, comfortable in no apparent distress. HEAD: Normocephalic/atraumatic. EYES: Normal reaction of pupils, equal size. Conjunctiva pink, sclera white. NOSE: Clear with pink turbinates. THROAT: No erythema or exudates. NECK: No masses, no JVD, no thyroid enlargement, no adenopathy. CHEST: No chest wall deformity. Symmetrical expansion. LUNGS: Equal air entry with diffuse scattered ronchi, crackles in the bases, right greater than left CVS: Regular rate and rhythm, normal S1 and S2, no gallops, no murmurs, no rubs ABDOMEN: Soft, nontender. No hepatosplenomegaly, normal bowel sounds, no guarding or rigidity. EXTREMITIES: No clubbing, no edema, no cyanosis, 2+ pulses and upper and lower extremities. MUSCULOSKELETAL: Muscle strength and tone normal. SPINE: No scoliosis or deformity SKIN: No rashes CENTRAL NERVOUS SYSTEM: No focal deficits, tone is normal in all 4 extremities. PSYCHIATRIC: Alert and oriented -3. Appropriate affect. Intact judgment and insight. - Labs CBC & Chem 7: 12/15/20 03:55 12/15/20 03:55 Labs: Abnormal Lab Results - Last 24 Hours (Table) 12/14/20 12/14/20 12/15/20 Range/Units 16:59 20:25 03:55 RBC 3.19 L (3.80-5.40) m/uL Hgb 9.5 L (11.4-16.0) gm/dL Hct 28.9 L (34.0-46.0) % RDW 17.0 H (11.5-15.5) % Plt Count 47 L D (150-450) k/uL Sodium (137-145) mmol/L Potassium (3.5-5.1) mmol/L BUN (7-17) mg/dL POC Glucose (mg/dL) 127 H 117 H (75-99) mg/dL 12/15/20 12/15/20 Range/Units 03:55 06:58 RBC (3.80-5.40) m/uL Hgb (11.4-16.0) gm/dL Hct (34.0-46.0) % RDW (11.5-15.5) % Plt Count (150-450) k/uL Sodium 133 L (137-145) mmol/L Potassium 3.3 L (3.5-5.1) mmol/L BUN 21 H (7-17) mg/dL POC Glucose (mg/dL) 73 L (75-99) mg/dL Assessment and Plan Assessment: 1 Acute Covid 19 related pneumonia with bilateral pulmonary infiltrates most significant in the right upper lobe and the left lung seems to be diffusely infiltrated 2 Acute severe hypoxic respiratory failure, slow to progress. Currently 10 L high flow nasal cannula 3 Thrombocytopenia, probably drug induced could be related to colchicine although the possibility of other drugs or even consumptive thrombocytopenia related to viral infection or even HIT note that the heparin-induced thrombocytopenia antibodies came back negative and the patient received platelets, and today on 12/15/2020 is up to 47,000. Receiving IVIG per hematology. 4 Chronic persistent bronchial asthma with an FEV1 of 82-87% on outpatient basis maintained on Symbicort 5 Steroid-induced hyperglycemia, improved 6 Hypertension 7 Hypothyroidism 8 Osteoarthritis and gout 9 Peripheral neuropathy involving lower extremities 10 Peripheral vascular disease 11 Chronic normocytic anemia 12 More than [id number] smoking history patient is currently an ex-smoker 13 Hiatal hernia with reflux Plan: The patient was seen and evaluated by Dr. Elena Labs reviewed. Receiving IVIG. Platelets 47,000 Transfer her out to the regular medical floor today Discontinue Murphy catheter Titrate down the FiO2 as tolerated, down to 8 L high flow Decrease prednisone to 10 mg daily Continue incentive spirometry Increase activity as tolerated We will continue to follow and make further recommendations based on her clinical status I, the cosigning physician, performed a history & physical examination of the patient. Lungs sounds with bilateral scattered rhonchi, crackles in the bases, right greater than left. Maintaining good O2 saturations in the 90s on 10 L high flow nasal cannula. I discussed the assessment and plan of care with my nurse practitioner, Dang Guillen. I attest to the above note as dictated by her.
[2020-12-15 11:09] LABS: Glucose,Whole Blood 99 mg/dL (75-99)
[2020-12-15] MEDS ORDERED: guaiFENesin 600 MG TABLET.ER PO PRN (11:14)
[2020-12-15] MEDS ORDERED: IMMUNE GLOBULIN (GAMMAGARD) 20 GM in EMPTY BAG 1 BAG IV ONE (12:00)
--- NOTE | 2020-12-15 13:59 | P.PN ---
Subjective Progress Note Date: 12/15/20 Acute hypoxic respiratory failure: Secondary to Covid 19 pneumonia 60-year-old female came in with complaints of shortness of breath found to have very low oxygen saturations patient was diagnosed with Covid 19 about 3 days ago patient had having symptoms for about a week. Patient was also company of fever chills patient has low-grade fever here. Patient was seen in [facility] subsequently transferred here patient is presently on 15 L of oxygen. Patient does have history of COPD. Patient was started on Decadron. Pulmonary was consulted. She was complaining of for cough without any significant sputum production. 11/21/2020 Patient doesn't feel any better patient remains on 15 L of oxygen along with Ventimask. Breasts will be replaced patient has highly elevated inflammatory markers although d-dimer is 0.36 pulmonology will evaluate the patient to evaluate for the need for Remdesivir. 11/22/2020 Patient is currently in MICU. Awake alert and oriented x3. On BiPAP with FiO2 100% saturating at 99%. Patient is still short of breath with tachypnea.. Patient was febrile with T-max 101 Laboratory test showed D-dimer level 0.78, ferritin 1436.9, LDH 1940 and CRP 143.6 and CK 589. UA negative for infection. Procalcitonin level is 1.28. Patient is being treated with remdesivir, dexamethasone and Lovenox. On antibiotics of ceftriaxone and azithromycin. Pulmonary is following. Chest x-ray showed slight worsening of patchy infiltrates bilaterally. Findings can be compatible with atypical pneumonia. 11/23/2020 Patient is currently in the MICU. Awake alert and oriented. On BiPAP support. Denied any chest pain. Cough and shortness of breath. Mainly dry cough. Afebrile. Patient is being continued dexamethasone 6 mg daily and remdesivir course. On anticoagulation. Chest x-ray showed diffuse increasing groundglass opacities. Correlate for pulmonary edema and ARDS. Atypical pneumonia is within differential. Patient was also started ceftriaxone and azithromycin for possible bacterial pneumonia underlying with elevated procalcitonin level. Pulmonary is on board.60-year-old female came in with compensative shortness of breath found to have very low oxygen saturations patient was diagnosed with Covid 19 about 3 days ago patient had having symptoms for about a week. Patient was also company of fever chills patient has low-grade fever here. Patient was seen in [facility] subsequently transferred here patient is presently on 15 L of oxygen. Patient does have history of COPD. Patient was started on Decadron. Pulmonary was consulted. She was complaining of for cough without any significant sputum production. 11/24/2020 patient is seen for a follow-up. The patient is currently still on a BiPAP with an FiO2 of 100%; feeling slightly better; remains afebrile. The chest x-ray remains unchanged and the patient continues to have diffuse but the pulmonary infiltrates consistent with code 19 related pneumonia. Her inflammatory markers are quite abnormal. At LDH from today was 1006 and 41, and her CRP was 59. Note that the CRP level was slightly lower. The pro-calcitonin level from yesterday was 0.18. CPKs nonelevated and a triglyceride level is at 154. The patient has a d-dimer of 14.8. She remains on Lovenox at a dose of 40 mg subcu every 12 hours which is in the order of 0.5 mg per KG every 12 hours. In terms of treatment, the patient remains on Decadron 20 mg IV on the daily basis and she is on Remdesivir and she also received 2 doses of Actemra 400 mg IV. Her oral intake was noted to be quite low as the patient is unable to get herself off the BiPAP for oral intake. Based on that, the patient will be given a PICC line today and she'll be started on TPN for nutritional support to maintain her nutritional status. No fever. No chills. Hemodynamically stable. No other issues for now. Her CODE STATUS is full code. 11/25/2020 patient is seen and evaluated in room for a follow-up; patient became hypoxic again and she had to be placed back on an FiO2 of 100% with a BiPAP pressure of 14/6 cm of water. Her current respiratory rate is in the order of 22-30 breaths per minute. The patient is comfortable. She is tolerating the treatment well. Laboratory review shows d-dimer is up to 30.01. Rest of the inflammatory markers show an LDH level of 1862 and the CRP is down to 40.8. Pro-calcitonin level was at 0.18. patient has received Lovenox at a dose of 40 mg subcu every 12 hours which is in the order of 0.5 mg per KG every 12 hours. In terms of treatment, the patient remains on Decadron 20 mg IV on the daily basis they #4 and she is on Remdesivir #5 and she also received 2 doses of Actemra 400 mg IV. Meanwhile be also inserted a PICC line in the left upper extremity and the patient was started on TPN for nutritional support. No altered mentation pH is resting comfortably in bed. Is slightly higher since the patient was started on TPN and septal 187 and the will going to put this patient on sliding scale blood sugar coverage. 11/26/2020 Patient remains in ICU and remains awake and alert; currently on BiPAP; FiO2 was weaned down to 70% with stable O2 saturation; patient remains on high-dose Decadron in form of 20 mg IV daily; inflammatory markers slowly trending down including CRP of 22, LDH of 1776, d-dimer 23.4 Patient is currently on TPN for nutrition at a rate of 45 hoursalong with blood glucose monitoring every 4 hours with insulin sliding scale; remains stable on IV fluids at 50 mL per hour Patient is being followed by pulmonology service and recommended to continue with Lovenox 40 mg subcu every 12 hours, Decadron 20 mg IV daily along with completing REM treatment; patient has received 2 doses of Actemra 400 mg IV 12/08/2020 patient is seen in follow-up in the intensive care unit. She is awake and alert. She is still requiring AirVo high flow oxygen at 60 L/m and 70% FiO2 to maintain O2 saturations in the 90s. No current IV fluids. She is receiving her second unit of convalescent plasma. Chest x-ray continues to show bilateral patchy perihilar and basilar infiltrates. Not much improvement. White count 9.9. Hemoglobin 11.7. Platelet count 63,000. D-dimer 3.60. Sodium 133. Potassium 3.3. Bicarb 36. Creatinine 0.63. AST 24. ALT 46. LDH 1101. C- reactive protein less than 5.0. She remains on IV Solu-Medrol, bronchodilators, Lovenox, colchicine, Pepcid, vitamin supplements. She's also been diuresed with Lasix 40 mg IV every 12 hours. plan is to continue the treatment as indicated above; titrate down FiO2 as tolerated; continue with incentive spirometry 12/09/2020 Patient is seen and evaluated in follow-up in the intensive care unit. She is currently sitting up in a chair at the bedside. Awake and alert in no acute distress. Continues to require AirVo high flow oxygen at 60 L/m at 66% FiO2. She is able to tolerate a bit more activity without significant desaturations. The amount of time that it takes for her to recover is getting less. Improving in that regard. Chest x-ray still revealing bilateral scattered infiltrates. Currently no IV fluids running. Appetite is improving. White count 10.7. Hemoglobin 11.7. Platelet count dropped to 35,000. Lymphocytes 0.3. D-dimer 3.3. Sodium 132. Potassium 3.9. Creatinine 0.63. Bicarb 32. LDH 1080. C- reactive protein less than 5. She remains on IV Solu-Medrol, bronchodilators, Lovenox, colchicine, Pepcid, vitamin supplements. Diuresed with Lasix 40 mg IV every 12 hours. She remains a negative balance. Continue the current treatment plan; Titrate down the FiO2 as tolerated; Continue incentive spirometry; Increase activity as tolerated 12/10/2020 Patient is seen and evaluated in follow-up in the intensive care unit; resting comfortably in bed. She remains awake and alert in no acute distress; oxygen requirements continued to improve slowly. She is on the AirVo at 55 L/m and 55% FiO2. No IV fluids. She remains on IV Solu-Medrol, bronchodilators, colchicine, Pepcid, vitamin supplements, IV diuretics. She remains a negative balance. Intensive care service is following and recommending to continue to monitor in ICU 12/11/2020 Patient is currently in the MICU. On Airvo at 15 L and FiO2 of 50%. Currently sitting in the chair and awake alert and oriented. Tolerating oral diet. Next and patient is being continued on IV Solu-Medrol. Patient is having severe thrombocytopenia with platelet count 9000 today. Other laboratory data showed sodium 131 potassium 3.6) 91 BUN 31 and creatinine 0.59 Patient was started on 40 mg of IV Lasix daily. 12/12/2020 Patient is currently in MICU. Sitting in a chair comfortably. Requiring high flow oxygen at 15 L and FiO2 45%. Chest x-ray showed diffuse bilateral p ulmonary infiltrates without any significant change. Breathing status is slightly better. Platelet count is at 6000 today. Patient is being continued on Solu-Medrol 40 mg IV every 8 hours. Patient is getting another platelet transfusion today. Inflammatory markers are trending down. Pulmonary and oncology is on board. 12/13/2020 Patient is in the MICU and oxygen requirement slightly lower than yesterday currently on high flow oxygen via nasal cannula. Breathing status is stable but still having exertional dyspnea. Platelet count is 8 came today. No complains of bruising or bleeding episodes. Laboratory data showed sodium 127, potassium 3.2, chloride 91, bicarb 23, BUN 23 and creatinine 0.57 Patient has been afebrile. No nausea vomiting or abdominal pain. Tolerating oral diet. No diarrhea. No chest pain. 12/14/2020 Patient continues to be closely monitored in the ICU Patient is currently maintained on 10 L high flow via nasal cannula and tolerating well. Patient continues to have some abdominal discomfort stating she has not had a bowel movement although felt as if she had to. Patient is passing gas. Patient is up to the bedside commode. Patient was given a dose of lactulose and will continue with as needed. Platelets today are 28 and awaiting to receive immunoglobulin transfusion. Hemoglobin is 10.3. Multiple medical consultations following. Patient is tolerating diet with no reports of nausea or vomiting noted although is very selective as she has a milk ALLERGY. Diet modifications being adjusted. Sodium continues to be low at 127 and potassium is 3.4 and being replaced today. Creatinine is 0.49. 12/15/2020 Patient evaluated this morning and continues to be in the ICU although awaiting a transfer to [facility]. Is currently maintained on 8 L high flow and tolerating well. Oxygen saturation is 90%. Patient's potassium was found to be 3.3 this morning and replaced and is currently 4.5. Sodium improved at 133. Creatinine is 0.63. Hemoglobin remained stable at 9.5 and platelets on the trend upwards at 47. She is status post IVIG infusion. Patient continues to have extreme mouth pain and discomfort although states the cool solution and nystatin is helping. Patient is up to the bathroom and will be having indwelling Murphy catheter removed. Patient denies any bowel movement at this time. Review of systems: Constitutional: No reports of fatigue, fever, or chills Cardiovascular: No reports of chest pain or palpitations Respiratory: No reports of worsening shortness of breath GI: No reports of nausea, vomiting, or diarrhea : No reports of dysuria or retention Neurovascular: No reports of weakness or numbness All inpatient medications were reviewed and appropriate changes in these medications as dictated in the interval history and assessment and plan. Active Medications Acetaminophen (Acetaminophen Tab 325 Mg Tab) 650 mg PO Q4HR PRN PRN Reason: Fever>101 Last Admin: 12/14/20 03:50 Dose: 650 mg Documented by: Albuterol Sulfate (Albuterol Hfa Inhaler) 2 puff INHALATION RT-QID [facility] Last Admin: 12/15/20 12:29 Dose: 2 puff Documented by: Ascorbic Acid (Ascorbic Acid 500 Mg Tab) 500 mg PO DAILY [facility] Last Admin: 12/15/20 09:48 Dose: 500 mg Documented by: Atorvastatin Calcium (Atorvastatin 40 Mg Tab) 40 mg PO HS [facility] Last Admin: 12/14/20 21:56 Dose: 40 mg Documented by: Budesonide/Formoterol Fumarate (Symbicort 160-4.5 Mcg Inhaler) 2 puff INHALATION RT-BID [facility] Last Admin: 12/15/20 08:52 Dose: 2 puff Documented by: Al Hydroxide/Mg Hydroxide 30 ml/ Lidocaine HCl 30 ml/Diphenhydramine HCl 75 mg/Nystatin 3,000,000 unit 0 ml PO TID [facility] Last Admin: 12/15/20 09:49 Dose: 5 ml Documented by: Gabapentin (Gabapentin 100 Mg Cap) 100 mg PO BID@0800,1200 [facility] Last Admin: 12/15/20 11:21 Dose: 100 mg Documented by: Gabapentin (Gabapentin 300 Mg Cap) 300 mg PO [facility] Last Admin: 12/14/20 21:56 Dose: 300 mg Documented by: Guaifenesin (Guaifenesin 600 Mg Tablet.Er) 600 mg PO Q12HR PRN PRN Reason: Congestion Fluconazole/Sodium Chloride (100 mg/ IV Solution) 50 mls @ 50 mls/hr IVPB DAILY [facility] Last Admin: 12/15/20 09:49 Dose: 50 mls/hr Documented by: Insulin Aspart (Insulin Aspart (Novolog) 100 Unit/Ml Vial) 0 unit SQ ACHS [facility]; Protocol Last Admin: 12/15/20 11:11 Dose: Not Given Documented by: Lactulose (Lactulose 20 Gm/30 Ml Cup) 20 gm PO DAILY PRN PRN Reason: Constipation Last Admin: 12/15/20 06:28 Dose: 20 gm Documented by: Levothyroxine Sodium (Levothyroxine 75 Mcg Tab) 75 mcg PO DAILY@0630 [facility] Last Admin: 12/15/20 06:28 Dose: 75 mcg Documented by: Melatonin (Melatonin 3 Mg Tablet) 3 mg PO [facility] Last Admin: 12/14/20 21:56 Dose: 3 mg Documented by: Miscellaneous Information (Potassium Replacement Protocol 1 Each Misc) 1 each MISCELLANE DAILY PRN; Protocol PRN Reason: Per Protocol Montelukast Sodium (Montelukast 10 Mg Tab) 10 mg PO [facility] Last Admin: 12/14/20 21:56 Dose: 10 mg Documented by: Nystatin (Nystatin 100,000 Unit/Ml Susp 500,000 Unit/5 Ml Cup) 500,000 unit PO QID [facility] Last Admin: 12/15/20 09:48 Dose: 500,000 unit Documented by: Petrolatum (Petrolatum, White Oint 50 Gm Tube) 1 applic TOPICAL BID PRN PRN Reason: Dry Skin Last Admin: 12/09/20 20:50 Dose: 1 applic Documented by: Pramipexole Dihydrochloride (Pramipexole 0.5 Mg Tab) 0.5 mg PO [facility] Last Admin: 12/14/20 21:56 Dose: 0.5 mg Documented by: Prednisone (Prednisone 10 Mg Tab) 10 mg PO DAILY [facility] Senna (Sennosides 8.6 Mg Tab) 8.6 mg PO DAILY PRN PRN Reason: Constipation Last Admin: 12/15/20 09:48 Dose: 8.6 mg Documented by: Sodium Bicarbonate (Salt And Soda Mouthwash 1,000 Ml) 5 ml PO 5XD [facility] Last Admin: 12/15/20 11:23 Dose: 5 ml Documented by: Sodium Chloride (Sodium Chloride 0.9% Flush 10 Ml Syringe) 20 ml IV Q4HR PRN PRN Reason: PICC Line Sodium Chloride (Sodium Chloride 0.9% Flush 10 Ml Syringe) 10 ml IV WEEKLY [facility] Last Admin: 12/15/20 09:48 Dose: 10 ml Documented by: Sodium Chloride (Sodium Chloride 0.9% Flush 10 Ml Syringe) 10 ml IV Q4HR PRN PRN Reason: PICC Line Sodium Chloride (Sodium Chloride Tab 1 Gm Tab) 1 gm PO TID [facility] Last Admin: 12/15/20 09:48 Dose: 1 gm Documented by: Sucralfate (Sucralfate 1 Gm Tab) 1 gm PO QID [facility] Last Admin: 12/15/20 09:48 Dose: 1 gm Documented by: Theophylline (Theophylline 24 Hour 300 Mg Cap.Er.24h) 600 mg PO HS [facility] Last Admin: 12/14/20 21:56 Dose: 600 mg Documented by: Tiotropium [place] (Tiotropium 2.5 Mcg Inhaler) 2 puff INHALATION RT-DAILY [facility] Last Admin: 12/15/20 08:52 Dose: 2 puff Documented by: Zinc Sulfate (Zinc Sulfate 220 Mg Cap) 220 mg PO DAILY [facility] Last Admin: 12/15/20 09:48 Dose: 220 mg Documented by: Objective - Vital Signs Vital signs: Vital Signs Temp 98.7 F 12/15/20 08:00 Pulse 92 12/15/20 10:00 Resp 29 H 12/15/20 10:00 BP 119/85 12/15/20 10:00 Pulse Ox 90 L 12/15/20 12:31 Intake & Output 12/14/20 12/15/20 12/15/20 18:59 06:59 18:59 Intake Total 126.991 9589 250 Output Total 3365 1358 900 Balance -2822.983 -158 -650 Weight 77.8 kg Intake: Intake, IV Titration 542.017 250 Amount Fluconazole in NaCl,Iso- 50 50 Osm 100 mg In Saline 1 50ml.bag @ 50 mls/hr IVPB DAILY [facility] Rx#:[id number] Immune Globulin ( 92.017 Gammagard) 20 gm In Empty Bag 1 bag @ Titrate IV . Q0M ONE Rx#:[id number] Immune Globulin ( 400 200 Gammagard) 20 gm In Empty Bag 1 bag @ Titrate IV . Q0M ONE Rx#:[id number] Oral 720 Tube Feeding 480 Output: Urine 3365 1358 900 Other: Voiding Method Indwelling Catheter Indwelling Catheter - Exam GENERAL: The patient is alert and oriented x3, not in any acute distress. Sitting up in the chair. Well developed, well nourished. HEENT: Pupils are round and equally reacting to light. EOMI. No scleral icterus. No conjunctival pallor. Normocephalic, atraumatic. No pharyngeal erythema. No thyromegaly. high flow nasal cannula noted and weaning as tolerated currently 8 L CARDIOVASCULAR: S1 and S2 present. No murmurs, rubs, or gallops. PULMONARY: Diffuse bilateral rhonchi without any significant wheezing fairly good air entry into bilateral lung ruiz ABDOMEN: Soft, nontender, nondistended, normoactive bowel sounds. No palpable organomegaly. MUSCULOSKELETAL: No joint swelling or deformity. EXTREMITIES: No cyanosis, clubbing, patient does have some pedal edema, left more so than the right although improved NEUROLOGICAL: Gross neurological examination did not reveal any focal deficits. - Labs CBC & Chem 7: 12/15/20 03:55 12/15/20 13:04 Labs: Abnormal Lab Results - Last 24 Hours (Table) 12/14/20 12/14/20 12/15/20 Range/Units 16:59 20:25 03:55 RBC 3.19 L (3.80-5.40) m/uL Hgb 9.5 L (11.4-16.0) gm/dL Hct 28.9 L (34.0-46.0) % RDW 17.0 H (11.5-15.5) % Plt Count 47 L D (150-450) k/uL Sodium (137-145) mmol/L Potassium (3.5-5.1) mmol/L BUN (7-17) mg/dL POC Glucose (mg/dL) 127 H 117 H (75-99) mg/dL 12/15/20 12/15/20 Range/Units 03:55 06:58 RBC (3.80-5.40) m/uL Hgb (11.4-16.0) gm/dL Hct (34.0-46.0) % RDW (11.5-15.5) % Plt Count (150-450) k/uL Sodium 133 L (137-145) mmol/L Potassium 3.3 L (3.5-5.1) mmol/L BUN 21 H (7-17) mg/dL POC Glucose (mg/dL) 73 L (75-99) mg/dL Assessment and Plan Assessment: -Acute severe hypoxic respiratory failure Secondary to Covid 19 pneumonia: Initially Requiring BiPAP. Has completed the Remdesivir and has received convalescent plasma. currently maintained on oral prednisone and being titrated down. Prednisone now at 10 mg daily -Severe thrombocytopenia possible drug-induced and also related to oral i nfection. -Chronic persistent asthma mild acute exacerbation secondary to Covid 19. Continued on oral steroids and Symbicort and breathing treatments. -Hyperlipidemia -Hypothyroidism -hypokalemia, improving potassium today after replacement is 4.5 -History of gout. Not in exacerbation. Colchicine has been discontinued due to severe thrombocytopenia. -Peripheral edema: Due to probably chronic venous stasis -Hiatal hernia with gastroesophageal reflux disease patient was resumed on Prilosec -GI prophylaxis -DVT prophylaxis. early ambulation -full code Plan: Patient will be continued on current high flow oxygen via nasal cannula and titrate down FiO2 as tolerated. Currently on 8L high flow. continue with incentive spirometer. Continued on oral steroids and breathing treatments as needed. Prednisone titrating down. Patient is status post IVIG. Platelets are 47 today. Hematology following. Encourage oral intake. Sodium improved at 133 today and will continue with salt tabs. Multiple medical consultations following. Patient awaiting [facility] bed for down grade from the ICU. Disc ontinue indwelling Murphy catheter. Will continue to monitor closely and make further recommendations based on the clinical course of the patient.
[2020-12-15 17:20] LABS: Glucose,Whole Blood 93 mg/dL (75-99)
[2020-12-15] MEDS: ENOXAPARIN 40 MG/0.4 ML SYRINGE SQ SCH (19:00)
[2020-12-15] MEDS: THEOPHYLLINE 24 HOUR 300 MG CAP.ER.24H PO SCH (20:17)
[2020-12-15] MEDS: GABAPENTIN 300 MG CAP PO SCH (20:17)
[2020-12-15] MEDS: MELATONIN 3 MG TABLET PO SCH (20:17)
[2020-12-15] MEDS: MONTELUKAST 10 MG TAB PO SCH (20:17)
[2020-12-15] MEDS: ATORVASTATIN 40 MG TAB PO SCH (20:17)
[2020-12-15] MEDS: PRAMIPEXOLE 0.5 MG TAB PO SCH (20:17)
[2020-12-15 21:10] LABS: Glucose,Whole Blood 107 mg/dL (75-99)
[2020-12-16] MEDS: SALT AND SODA MOUTHWASH 1,000 ML PO SCH ×5 (05:30→23:03)
[2020-12-16] MEDS: LEVOTHYROXINE 75 MCG TAB PO SCH (05:30)
[2020-12-16 06:46] LABS: INR 0.9 (<1.2); Prothrombin Time 10.2 sec (9.0-12.0)
[2020-12-16 06:50] LABS: D-Dimer 9.01 mg/L FEU (<0.60); Partial Thromboplastin Time 19.6 sec (22.0-30.0)
[2020-12-16] MEDS: TIOTROPIUM 2.5 MCG INHALER INHALATION SCH (07:48)
[2020-12-16] MEDS: SYMBICORT 160-4.5 MCG INHALER INHALATION SCH ×2 (07:48→20:33)
[2020-12-16] MEDS: ALBUTEROL HFA INHALER INHALATION SCH ×4 (07:48→20:33)
[2020-12-16 07:56] LABS: Glucose,Whole Blood 69 mg/dL (75-99)
[2020-12-16 08:11] LABS: Glucose,Whole Blood 90 mg/dL (75-99)
--- NOTE | 2020-12-16 08:16 | XR ---
EXAMINATION TYPE: XR chest 1V portable DATE OF EXAM: 12/16/2020 Comparison: 12/12/2020 Clinical History: 60-year-old female CoVID pneumonia Findings: Left PICC tip at the cavoatrial junction. Heart borderline in size. Diffuse bilateral airspace diseas e slightly worsened in the interval. Low lung volumes. Impression: Worsening bilateral diffuse airspace disease. Low lung volumes.
[2020-12-16] MEDS: ZINC SULFATE 220 MG CAP PO SCH (08:17)
[2020-12-16] MEDS: ASCORBIC ACID 500 MG TAB PO SCH (08:17)
[2020-12-16] MEDS: predniSONE 10 MG TAB PO SCH (08:17)
[2020-12-16] MEDS: GABAPENTIN 100 MG CAP PO SCH ×2 (08:17→12:15)
[2020-12-16] MEDS: FLUCONAZOLE IN NACL,ISO-OSM 100 MG in SALINE 1 50ML.BAG IVPB SCH (08:17)
[2020-12-16] MEDS: SUCRALFATE 1 GM TAB PO SCH ×4 (08:17→21:35)
[2020-12-16] MEDS: INSULIN ASPART (NovoLOG) 100 UNIT/ML VIAL SQ SCH ×4 (08:18→20:46)
[2020-12-16] MEDS: SODIUM CHLORIDE TAB 1 GM TAB PO SCH ×3 (08:18→21:35)
[2020-12-16] MEDS: NYSTATIN 100,000 UNIT/ML SUSP 500,000 UNIT/5 ML CUP PO SCH ×2 (08:18→12:16)
[2020-12-16] MEDS: MAG HYDROX/AL HYDROX/SIMETH 30 ML, LIDOCAINE VISCOUS 30 ML, diphenhydrAMINE ELIXIR 75 M... PO SCH ×12 (08:22→21:35)
[2020-12-16 10:04] LABS: C Reactive Protein <0.4 mg/dL (0.0-0.8)
[2020-12-16 12:13] LABS: Glucose,Whole Blood 103 mg/dL (75-99)
[2020-12-16 12:59] LABS: LDH 335 U/L (120-246)
--- NOTE | 2020-12-16 14:20 | P.PN ---
Subjective Progress Note Date: 12/16/20 60-year-old here patient hospitalized for COVID 19 related pneumonia and hypoxemia. The patient was found to have a low oxygen saturation. She was diagnosed having COVID 19 on 11/20/2020. However, her symptoms started approximately a week prior to that as the patient started having generalized weakness, fever and chills. In the hospital at [place], she was found to be hypoxic and she was placed on 15 L of oxygen by nasal cannula. She was started on Decadron and following that she was transferred to [facility] on 11/20/2020 for further evaluation. On today's evaluation the patient remains on 15 L of oxygen by nasal cannula. Laboratory markers show a LDH of 1482, her CRP is 239, her pro-calcitonin level is at 1.28, her white cell count is at 4.5 and the patient has a lymphopenia with a lymphocyte count of 0.7. The electrolytes all within normal limits. Renal function is within normal limits. Glucose slightly elevated at 235. The chest x-ray is showing bilateral pulmonary infiltrates mainly involving the left lung and or significantly in the right upper lobe area. The patient is known to have COPD/asthma. The patient is also has history of hypothyroidism, hyperlipidemia and gout. She has history of hiatal hernia.. She is on Decadron 6 mg by mouth daily. She is on no DVT prophylaxis is receiving 40 mg of Lovenox her d-dimer level is at 0.36. On 11/22/2020 patient seen in follow-up in intensive care unit. She is awake and alert, oriented 3, she is currently on BiPAP support with pressures of 14/5 and FiO2 of 100%, and her SpO2 is a 99%. Patient states she doesn't feel significantly more short of breath, however she tachypneic with a respiratory rate of 28 BPM, she has been febrile T-max of 10 1F, her pro-calcitonin came back elevated at 1.28 suggesting possibility of bacterial infection. Today we started her on Remdesivir, today's date to off treatment, her inflammatory markers are trending up, LDH is up to 1940, CRP is 143.6, d-dimer is 0.78, and is on prophylactic dose of Lovenox 40 mg daily, electrolytes and renal profile are unremarkable. O'Christiano is 9.2, hemoglobin is 11, platelet count is 322, neutrophils is 8.3, and in lymphocyte count is 0.5. Patient is on day 2 of high-dose IV steroids 20 mg daily. Patient is awake and alert, oriented 3, yesterday she reversed her CODE STATUS, from DO NOT RESUSCITATE to full code. On 11/23/2020 patient seen in follow-up in the intensive care unit, she remains on BiPAP support, has been very much dependent on it, and he desaturates rapidly even for short periods when the BiPAP mask is removed to give the patient oral medications, current BiPAP settings of 14/60 and FiO2 of 100%, her pulse ox is 93%. Awake and alert, she is oriented 3, she states her breathing is stable as long as she does not move and lays very still in bed. She is complaining of a dry cough, no chest discomfort, no palpitations. She is in sinus mechanism, bradycardic with a rate of 55 BPM, blood pressure is 116/66, not on any vasopressor support, her current IV fluids are 0.9 normal saline at a rate of 20 ML per hour. Patient's pattern has improved, T-max in last 24 hours 99.5F. Urinalysis was sent and shows no signs of infection, blood cultures will be sent today, last pro calcitonin yesterday was 1.29, repeat pro calcitonin has been sent and pending at this time, patient was empirically placed on azithromycin and Rocephin. Maintenance on high-dose IV steroids currently with Decadron 20 mg IV on the daily basis. Absent been reviewed, her d-dimer has trended up, and is at 5.13 today, her Lovenox dose will be adjusted 0.5 mg/kg of body weight twice daily, LDH is down slightly, 1670, CRP is relatively stable at 140.5. Electronic are within normal limits, patient is mildly prerenal, BUN is 30 creatinine 0.74, she also remains on oral dose of Lasix and she has had very limited oral intake. She has only been able to take one or 2 sips of oral liquids and she states things do not taste right. White blood cell count is 6.5, hemoglobin is 10.5. His chest x-ray has been reviewed and diffuse increasing groundglass opacities. I discussed the patient's CODE STATUS with her, and she is agreeable to CPR, intubation, defibrillation, CODE STATUS will be changed to full code On 12/04/2020 patient seen in follow-up in the intensive care unit, she is off the BiPAP support, and currently on high flow oxygen per Airvo 60 L/m and FiO2 of 70%, with a pulse ox between 92-94%, she is breathing comfortably, denies any chest discomfort, she sitting up in a chair, she looks comfortable, she has had no fever or chills. Today's chest x-ray shows coarse infiltrates bilaterally with slight interval progression. Patient is tolerating oral diet. She is off the TPN. She is on 0.9 normal saline at a rate of 10 ML per hour, today's labs have been reviewed, d-dimer is improved from a few days back and is down to 6.70, patient is on Lovenox 40 mg twice a day, white blood cell count is 9.1, hemoglobin is 10.8, sodium is 134, potassium is 4.4, chloride is 96, CO2 is 34, B1 is 20, creatinine 0.64 LDH is 1660, CRP is less than 5. Patient remains on daily dose of IV Lasix, colchicine, Pepcid 20 mg twice a day, bronchodilators, IV Solu-Medrol 40 mg every 8 hours On 12/05/2020 patient is seen in follow-up in the intensive care unit, she remains on high flow oxygen per Airvo at 60 L/m and FiO2 of 75%, in the night her FiO2 have to be bumped up a little bit from a 70% because of an episode of desaturation. She also required 4 hours on BiPAP support. However this morning patient appears to be calm and comfortable, sitting up in the recliner, in her pulse ox on the Airvo at previously mentioned settings is 98-100%, she is breathing comfortaby. Patient is awake and alert, oriented 3, no altered mentation, she is in sinus mechanism, she is on 0.9 at 10 ML per hour, no other drips, she's been afebrile, vital signs have been stable. Chest x-ray has been reviewed, and it shows patchy perihilar and basilar infiltrates persistence without significant change. She remains on once daily dose of Lasix, and she is in -1090 mL fluid balance over the last 24 hours. She has been tolerating oral intake, no nausea vomiting or abdominal pain. Currently patient remains on IV steroids with Solu-Medrol 40 mg every 8 hours, colchicine, vitamin C D and zinc, melatonin, and bronchodilators. Today's d-dimer is 7.58. And patient remains on Lovenox at 40 mg twice daily which is 0.5 mg/kg of body weight twice daily. Patient also continues on Zosyn for empiric antibiotic coverage. Blood cultures have shown no growth. Follow-up LDH is trending down on today's labs and is down to 1370, CRP is less than 5. On 12/06/2020 patient seen in follow-up in intensive care unit, patient remains on Airvo at 60L and Fio2 75%. Satting between 88-91%, did require BiPap support last night for a few hours, currently back on Airvo. Patient is breathing comfortably, no acute distress, no chest discomfort. No fever, or chills. Patient is currently on 0.9 NS at 10 ml/hr. patient remains on Lasix, she is in -1.8 L fluid balance over the last 24 hours, however her chest x-ray shows worsening airspace disease, and pulmonary edema. Blood pressure has been stable, today's labs have been reviewed, showing serum sodium of 135, potassium is 4.3, chloride is 97, CO2 is 24, B1 is 24, creatinine 0.64. Proalcitonin level came back negative, we can stop the Zosyn cultures are negative. No fever or chills. No nausea vomiting diarrhea. On 12/07/2020 patient seen in follow-up in intensive care unit, she remains on high flow oxygen per Airvo at 60 L, and FiO2 of 70%, and her pulse ox is 90-91%, looks fairly comfortable, she is sitting up on the edge of the bed, appears to be in no acute distress, she is getting ready to eat breakfast this morning, she has been afebrile, vital signs have been stable. her chest x-ray today showed diffuse increased lung markings more focal in the right lower lobe, patient has received increased dose of Lasix, and her chest x-ray shows better aeration compared to yesterday's exam.today's labs have been reviewed, her d-dimer is trending down, down to 5.40, white count is 10.2, hemoglobin is 11.4, sodium is 134, potassium is 3.3, chloride 96, CO2 is 23, BUN is 26 creatinine 0.64. LDH is 1300, CRP is less than 5, blood culture has shown no growth. The patient is seen today 12/08/2020 in follow-up in the intensive care unit. She is awake and alert. She is still requiring AirVo high flow oxygen at 60 L/m and 70% FiO2 to maintain O2 saturations in the 90s. No current IV fluids. She is receiving her second unit of convalescent plasma. Chest x-ray continues to show bilateral patchy perihilar and basilar infiltrates. Not much improvement. White count 9.9. Hemoglobin 11.7. Platelet count 63,000. D-dimer 3.60. Sodium 133. Potassium 3.3. Bicarb 36. Creatinine 0.63. AST 24. ALT 46. LDH 1101. C-reactive protein less than 5.0. She remains on IV Solu-Medrol, bronchodilators, Lovenox, colchicine, Pepcid, vitamin supplements. She's also been diuresed with Lasix 40 mg IV every 12 hours. The patient is seen today 12/09/2020 in follow-up in the intensive care unit. She is currently sitting up in a chair at the bedside. Awake and alert in no acute distress. Continues to require AirVo high flow oxygen at 60 L/m at 66% FiO2. She is able to tolerate a bit more activity without significant desaturations. The amount of time that it takes for her to recover is getting less. Improving in that regard. Chest x-ray still revealing bilateral scattered infiltrates. Currently no IV fluids running. Appetite is improving. White count 10.7. Hemoglobin 11.7. Platelet count dropped to 35,000. Lymphocytes 0.3. D-dimer 3.3. Sodium 132. Potassium 3.9. Creatinine 0.63. Bicarb 32. LDH 1080. C-reactive protein less than 5. She remains on IV Solu- Medrol, bronchodilators, Lovenox, colchicine, Pepcid, vitamin supplements. Diu resed with Lasix 40 mg IV every 12 hours. She remains a negative balance. The patient is seen today 12/10/2020 in follow-up in the intensive care unit. He is currently resting comfortably in bed. She remains awake and alert in no acute distress. Her oxygen requirements continued to improve slowly. She is on the AirVo at 55 L/m and 55% FiO2. No IV fluids. Her appetite has been fair. White count 9.5. Hemoglobin 12.4. Platelet count 15,000. D-dimer 2.99. Sodium 134. Potassium 3.2. Creatinine 0.61. She remains off Lovenox. HIT labs are pending. She remains on IV Solu-Medrol, bronchodilators, colchicine, Pepcid, vitamin supplements, IV diuretics. She remains a negative balance. The patient is seen today 12/14/2020 in follow-up in the intensive care unit. She is currently sitting up in a chair at the bedside. Awake and alert in no acute distress. She is down to 10 L high flow nasal cannula and maintaining O2 saturations in the low 90s. She is feeling stronger each day. She still has significant shortness of breath with minimal exertion. Blood cultures reveal no growth. White count 6.0. Hemoglobin 10.3. Platelets are up to 28,000. Sodium 127. Potassium 3.4. Creatinine 0.49. She is receiving IVIG per hematology. She remains on fluconazole for her thrush. Remains on Symbicort and albuterol. She is down to prednisone 20 mg daily. Currently in a negative balance. She is tolerating her diet. The patient is seen today 12/15/2020 in follow-up in the intensive care unit. She remains awake and alert in no acute distress. Currently on 10 L high flow nasal cannula. Maintaining O2 saturations in the low 90s. Still with significant dyspnea on minimal exertion. Working well with physical therapy. Working with the incentive spirometer. She's been up ambulating in her room. Her platelets are increasing back to 47,000. Sodium 133. Thrush is improved but persistent. Steroids have been decreased. She is receiving IVIG. Remains on bronchodilators. She had received 2 units of convalescent plasma. She has received 3 units of platelets. Hematology on the case. ON 12/16/2020 THE PATIENT GOT TRANSFERRED OUT OF THE INTENSIVE CARE UNIT YEST AYAD AND CURRENTLY SHE IS IN A NEGATIVE FLUID AND I'M SEEING HER TODAY IN FOLLOW-UP. SHE IS DOING WELL. SHE IS CURRENTLY ON OXYGEN AT 6 L AND HER LDH IS DOWN TO 335 AND HER CRP IS LESS THAN 0.4. HER COAGULATION PROFILE IS WITHIN NORMAL LIMITS. THE D-DIMER IS STILL ELEVATED AT 9.0 WITH A FIBRINOGEN LEVEL OF 249. THE PATIENT WAS KEPT ON HER STEROIDS AND CURRENTLY SHE IS DOWN TO PREDNISONE OF 10 MG BY MOUTH DAILY. SHE RECEIVED IVIG REGARDING A ITP INDUCED THROMBOCYTOPENIA AND HER PLATELET COUNT WAS UP TO 47,000. SHE IS DOING WELL. I HAVE THE PATIENT ALSO ON DIFLUCAN REGARDING OROPHARYNGEAL CANDIDIASIS. NO OTHER NEW COMPLAINTS FOR NOW. HE IS TO HAVE DIFFICULTY SWALLOWING THE PATIENT HAD DEVELOPED EXTENSIVE OROPHARYNGEAL CANDIDIASIS AND SHE REMAINS ON DIFLUCAN FOR NOW. THIS IS AFFECTING HER ABILITY TO SWALLOW AND INABILITY TO EAT. OTHERWISE, NO NEW ISSUES FOR NOW. THE CHEST X-RAY FROM TODAY WAS NOTED AND SHE HAS LOW VOLUMES IN HER LUNGS AND SHE STILL HAS STABLE BILATERAL PULMONARY INFILTRATES RELATED TO /COVID 19 RELATED INFECTION. Objective - Vital Signs Vital signs: Vital Signs Temp 97.7 F 12/16/20 10:53 Pulse 111 H 12/16/20 10:53 Resp 22 12/16/20 10:53 BP 120/81 12/16/20 10:53 Pulse Ox 97 12/16/20 10:53 Intake & Output 12/15/20 12/16/20 12/16/20 18:59 06:59 18:59 Intake Total 401.367 200 Output Total 2200 Balance -1798.633 200 Weight 75 kg Intake: Intake, IV Titration 401.367 Amount Fluconazole in NaCl,Iso- 50 Osm 100 mg In Saline 1 50ml.bag @ 50 mls/hr IVPB DAILY [facility] Rx#:[id number] Immune Globulin ( 200 Gammagard) 20 gm In Empty Bag 1 bag @ Titrate IV . Q0M ONE Rx#:[id number] Immune Globulin ( 151.367 Gammagard) 20 gm In Empty Bag 1 bag @ Titrate IV . Q0M ONE Rx#:[id number] Oral 200 Output: Urine 2200 Other: Voiding Method Toilet Toilet Bedside Commode Bedside Commode # Voids 4 - Exam GENERAL EXAM: Alert, pleasant, 60-year-old female patient on at 6 L OF OXYGEN BY NASAL CANNULA. EYES: Normal reaction of pupils, equal size. Conjunctiva pink, sclera white. NOSE: Clear with pink turbinates. THROAT: No erythema or exudates. Extensive oropharyngeal candidiasis involving tongue and posterior oropharynx NECK: No masses, no JVD, no thyroid enlargement, no adenopathy. CHEST: No chest wall deformity. Symmetrical expansion. LUNGS: Equal air entry with diffuse scattered ronchi, crackles in the bases CVS: Regular rate and rhythm, normal S1 and S2, no gallops, no murmurs, no rubs ABDOMEN: Soft, nontender. No hepatosplenomegaly, normal bowel sounds, no gua rding or rigidity. EXTREMITIES: No clubbing, no edema, no cyanosis, 2+ pulses and upper and lower extremities. MUSCULOSKELETAL: Muscle strength and tone normal. SPINE: No scoliosis or deformity SKIN: No rashes CENTRAL NERVOUS SYSTEM: No focal deficits, tone is normal in all 4 extremities. PSYCHIATRIC: Alert and oriented -3. Appropriate affect. Intact judgment and insight. - Labs CBC & Chem 7: 12/15/20 03:55 12/15/20 13:04 Labs: Abnormal Lab Results - Last 24 Hours (Table) 12/15/20 12/16/20 12/16/20 Range/Units 21:08 05:25 05:25 APTT 19.6 L (22.0-30.0) sec D-Dimer 9.01 H (<0.60) mg/L FEU POC Glucose (mg/dL) 107 H (75-99) mg/dL Lactate Dehydrogenase 335 H (120-246) U/L 12/16/20 12/16/20 Range/Units 07:36 11:50 APTT (22.0-30.0) sec D-Dimer (<0.60) mg/L FEU POC Glucose (mg/dL) 69 L 103 H (75-99) mg/dL Lactate Dehydrogenase (120-246) U/L Assessment and Plan Plan: 1 Acute Covid 19 related pneumonia with bilateral pulmonary infiltrates most significant in the right upper lobe and the left lung seems to be diffusely infiltrated the chest x-ray findings are stable and the patient patient has demonstrated significant improvement in the oxygenation and the patient is down to 6 L for now. The patient is gradually improving. She has weaned down to 6 L of oxygen by nasal cannula. Her prednisone dose is currently down to 10 mg by mouth daily. She has extensive oropharyngeal candidiasis and irritation in her throat and tongue and mouth which is affecting her swallowing she is currently on Diflucan. 2 acute hypoxic respiratory failure secondary to above, currently on 6 L of oxygen by nasal cannula 3 Increased pro-calcitonin ruled out possibility of bacterial infection, both mycoplasma titers were low, Legionella urine antigen was negative, blood cultures have shown no growth. 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 IV Solu-Medrol has been discontinued. Plan: Keep the patient off colchicine which probably contributed to her mucositis and thrombocytopenia The patient is currently down to 6 is about 2 by nasal cannula I kept on the prednisone down to 10 mg by mouth daily Continue Diflucan Give the patient course solution 4 times a day Continue Lovenox as the patient d-dimer continues to be quite elevated Advance diet as tolerated Continue to monitor her closely here in the ICU We will continue to follow and make further recommendations based on her clinical status
[2020-12-16 17:51] LABS: Glucose,Whole Blood 100 mg/dL (75-99)
[2020-12-16 20:45] LABS: Glucose,Whole Blood 98 mg/dL (75-99)
[2020-12-16] MEDS: PRAMIPEXOLE 0.5 MG TAB PO SCH (21:35)
[2020-12-16] MEDS: GABAPENTIN 300 MG CAP PO SCH (21:35)
[2020-12-16] MEDS: MONTELUKAST 10 MG TAB PO SCH (21:35)
[2020-12-16] MEDS: MELATONIN 3 MG TABLET PO SCH (21:35)
[2020-12-16] MEDS: ATORVASTATIN 40 MG TAB PO SCH (21:35)
[2020-12-16] MEDS: THEOPHYLLINE 24 HOUR 300 MG CAP.ER.24H PO SCH (21:35)
[2020-12-17] MEDS: SALT AND SODA MOUTHWASH 1,000 ML PO SCH ×5 (05:10→23:10)
[2020-12-17] MEDS: LEVOTHYROXINE 75 MCG TAB PO SCH (05:10)
[2020-12-17] MEDS: SUCRALFATE 1 GM TAB PO SCH ×4 (07:20→20:41)
[2020-12-17] MEDS: ZINC SULFATE 220 MG CAP PO SCH (07:20)
[2020-12-17] MEDS: ASCORBIC ACID 500 MG TAB PO SCH (07:20)
[2020-12-17] MEDS: predniSONE 10 MG TAB PO SCH (07:20)
[2020-12-17] MEDS: FLUCONAZOLE IN NACL,ISO-OSM 100 MG in SALINE 1 50ML.BAG IVPB SCH (07:20)
[2020-12-17] MEDS: GABAPENTIN 100 MG CAP PO SCH ×2 (07:20→11:56)
[2020-12-17] MEDS: MAG HYDROX/AL HYDROX/SIMETH 30 ML, LIDOCAINE VISCOUS 30 ML, diphenhydrAMINE ELIXIR 75 M... PO SCH ×12 (07:21→20:41)
[2020-12-17] MEDS: SODIUM CHLORIDE TAB 1 GM TAB PO SCH ×3 (07:21→20:41)
[2020-12-17] MEDS: TIOTROPIUM 2.5 MCG INHALER INHALATION SCH (07:24)
[2020-12-17] MEDS: ALBUTEROL HFA INHALER INHALATION SCH ×4 (07:24→20:57)
[2020-12-17] MEDS: SYMBICORT 160-4.5 MCG INHALER INHALATION SCH ×2 (07:24→20:57)
[2020-12-17] MEDS: SENNOSIDES 8.6 MG TAB PO PRN (07:37)
[2020-12-17 07:51] LABS: Glucose,Whole Blood 59 mg/dL (75-99)
[2020-12-17 08:11] LABS: Glucose,Whole Blood 104 mg/dL (75-99)
[2020-12-17] MEDS: INSULIN ASPART (NovoLOG) 100 UNIT/ML VIAL SQ SCH ×4 (08:13→20:36)
[2020-12-17 09:25] LABS: Appearance,Urine Cloudy (Clear); Bacteria,Urine Occasional /hpf; Bilirubin,Urine Negative (Negative); Blood,Urine Moderate (Negative); Color,Urine Yellow; Glucose,Urine (UA) Negative (Negative); Ketones,Urine Negative (Negative); Leukocyte Esterase,Urine Large (Negative); Mucus,Urine Rare /hpf; Nitrite,Urine Negative (Negative); Protein,Urine 1+ (Negative); RBC,Urine 29 /hpf (0-5); Specific Gravity,Urine 1.009 (1.001-1.035); Squamous Epithelial Cell,Urine <1 /hpf (0-4); Urobilinogen,Urine <2.0 mg/dL (<2.0); WBC,Urine >182 /hpf (0-5)
--- NOTE | 2020-12-17 10:46 | P.PN ---
Subjective Progress Note Date: 12/17/20 Principal diagnosis: Acute hypoxic respiratory failure secondary to CoVID 19 pneumonia 60-year-old here patient hospitalized for COVID 19 related pneumonia and hypoxemia. The patient was found to have a low oxygen saturation. She was diagnosed having COVID 19 on 11/20/2020. However, her symptoms started approximately a week prior to that as the patient started having generalized weakness, fever and chills. In the hospital at [place], she was found to be hypoxic and she was placed on 15 L of oxygen by nasal cannula. She was started on Decadron and following that she was transferred to [facility] on 11/20/2020 for further evaluation. On today's evaluation the patient remains on 15 L of oxygen by nasal cannula. Laboratory markers show a LDH of 1482, her CRP is 239, her pro-calcitonin level is at 1.28, her white cell count is at 4.5 and the patient has a lymphopenia with a lymphocyte count of 0.7. The electrolytes all within normal limits. Renal function is within normal limits. Glucose slightly elevated at 235. The chest x-ray is showing bilateral pulmonary infiltrates mainly involving the left lung and or significantly in the right upper lobe area. The patient is known to have COPD/asthma. The patient is also has history of hypothyroidism, hyperlipidemia and gout. She has history of hiatal hernia.. She is on Decadron 6 mg by mouth daily. She is on no DVT prophylaxis is receiving 40 mg of Lovenox her d-dimer level is at 0.36. On 11/22/2020 patient seen in follow-up in intensive care unit. She is awake and alert, oriented 3, she is currently on BiPAP support with pressures of 14/5 and FiO2 of 100%, and her SpO2 is a 99%. Patient states she doesn't feel significantly more short of breath, however she tachypneic with a respiratory rate of 28 BPM, she has been febrile T-max of 10 1F, her pro-calcitonin came back elevated at 1.28 suggesting possibility of bacterial infection. Today we started her on Remdesivir, today's date to off treatment, her inflammatory markers are trending up, LDH is up to 1940, CRP is 143.6, d-dimer is 0.78, and is on prophylactic dose of Lovenox 40 mg daily, electrolytes and renal profile are unremarkable. O'Christiano is 9.2, hemoglobin is 11, platelet count is 322, neutrophils is 8.3, and in lymphocyte count is 0.5. Patient is on day 2 of high-dose IV steroids 20 mg daily. Patient is awake and alert, oriented 3, yesterday she reversed her CODE STATUS, from DO NOT RESUSCITATE to full code. On 11/23/2020 patient seen in follow-up in the intensive care unit, she remains on BiPAP support, has been very much dependent on it, and he desaturates rapidly even for short periods when the BiPAP mask is removed to give the patient oral medications, current BiPAP settings of 14/60 and FiO2 of 100%, her pulse ox is 93%. Awake and alert, she is oriented 3, she states her breathing is stable as long as she does not move and lays very still in bed. She is complaining of a dry cough, no chest discomfort, no palpitations. She is in sinus mechanism, bradycardic with a rate of 55 BPM, blood pressure is 116/66, not on any vasopressor support, her current IV fluids are 0.9 normal saline at a rate of 20 ML per hour. Patient's pattern has improved, T-max in last 24 hours 99.5F. Urinalysis was sent and shows no signs of infection, blood cultures will be sent today, last pro calcitonin yesterday was 1.29, repeat pro calcitonin has been sent and pending at this time, patient was empirically placed on azithromycin and Rocephin. Maintenance on high-dose IV steroids currently with Decadron 20 mg IV on the daily basis. Absent been reviewed, her d-dimer has trended up, and is at 5.13 today, her Lovenox dose will be adjusted 0.5 mg/kg of body weight twice daily, LDH is down slightly, 1670, CRP is relatively stable at 140.5. Electronic are within normal limits, patient is mildly prerenal, BUN is 30 creatinine 0.74, she also remains on oral dose of Lasix and she has had very limited oral intake. She has only been able to take one or 2 sips of oral liquids and she states things do not taste right. White blood cell count is 6.5, hemoglobin is 10.5. His chest x-ray has been reviewed and diffuse increasing groundglass opacities. I discussed the patient's CODE STATUS with he yadi, and she is agreeable to CPR, intubation, defibrillation, CODE STATUS will be changed to full code On 12/04/2020 patient seen in follow-up in the intensive care unit, she is off the BiPAP support, and currently on high flow oxygen per Airvo 60 L/m and FiO2 of 70%, with a pulse ox between 92-94%, she is breathing comfortably, denies any chest discomfort, she sitting up in a chair, she looks comfortable, she has had no fever or chills. Today's chest x-ray shows coarse infiltrates bilaterally w ith slight interval progression. Patient is tolerating oral diet. She is off the TPN. She is on 0.9 normal saline at a rate of 10 ML per hour, today's labs have been reviewed, d-dimer is improved from a few days back and is down to 6.70, patient is on Lovenox 40 mg twice a day, white blood cell count is 9.1, hemoglobin is 10.8, sodium is 134, potassium is 4.4, chloride is 96, CO2 is 34, B1 is 20, creatinine 0.64 LDH is 1660, CRP is less than 5. Patient remains on daily dose of IV Lasix, colchicine, Pepcid 20 mg twice a day, bronchodilators, IV Solu-Medrol 40 mg every 8 hours On 12/05/2020 patient is seen in follow-up in the intensive care unit, she remains on high flow oxygen per Airvo at 60 L/m and FiO2 of 75%, in the night her FiO2 have to be bumped up a little bit from a 70% because of an episode of desaturation. She also required 4 hours on BiPAP support. However this morning patient appears to be calm and comfortable, sitting up in the recliner, in her pulse ox on the Airvo at previously mentioned settings is 98-100%, she is breathing comfortaby. Patient is awake and alert, oriented 3, no altered mentation, she is in sinus mechanism, she is on 0.9 at 10 ML per hour, no other drips, she's been afebrile, vital signs have been stable. Chest x-ray has been reviewed, and it shows patchy perihilar and basilar infiltrates persistence without significant change. She remains on once daily dose of Lasix, and she is in -1090 mL fluid balance over the last 24 hours. She has been tolerating oral intake, no nausea vomiting or abdominal pain. Currently patient remains on IV steroids with Solu-Medrol 40 mg every 8 hours, colchicine, vitamin C D and zinc, melatonin, and bronchodilators. Today's d-dimer is 7.58. And patient remains on Lovenox at 40 mg twice daily which is 0.5 mg/kg of body weight twice daily. Patient also continues on Zosyn for empiric antibiotic coverage. Blood cultures have shown no growth. Follow-up LDH is trending down on today's labs and is down to 1370, CRP is less than 5. On 12/06/2020 patient seen in follow-up in intensive care unit, patient remains on Airvo at 60L and Fio2 75%. Satting between 88-91%, did require BiPap support last night for a few hours, currently back on Airvo. Patient is breathing comfortably, no acute distress, no chest discomfort. No fever, or chills. Patient is currently on 0.9 NS at 10 ml/hr. patient remains on Lasix, she is in -1.8 L fluid balance over the last 24 hours, however her chest x-ray shows worsening airspace disease, and pulmonary edema. Blood pressure has been stable, today's labs have been reviewed, showing serum sodium of 135, potassium is 4.3, chloride is 97, CO2 is 24, B1 is 24, creatinine 0.64. Proalcitonin level came back negative, we can stop the Zosyn cultures are negative. No fever or chills. No nausea vomiting diarrhea. On 12/07/2020 patient seen in follow-up in intensive care unit, she remains on high flow oxygen per Airvo at 60 L, and FiO2 of 70%, and her pulse ox is 90-91%, looks fairly comfortable, she is sitting up on the edge of the bed, appears to be in no acute distress, she is getting ready to eat breakfast this morning, she has been afebrile, vital signs have been stable. her chest x-ray today showed diffuse increased lung markings more focal in the right lower lobe, patient has received increased dose of Lasix, and her chest x-ray shows better aeration compared to yesterday's exam.today's labs have been reviewed, her d-dimer is trending down, down to 5.40, white count is 10.2, hemoglobin is 11.4, sodium is 134, potassium is 3.3, chloride 96, CO2 is 23, BUN is 26 creatinine 0.64. LDH is 1300, CRP is less than 5, blood culture has shown no growth. The patient is seen today 12/08/2020 in follow-up in the intensive care unit. She is awake and alert. She is still requiring AirVo high flow oxygen at 60 L/m and 70% FiO2 to maintain O2 saturations in the 90s. No current IV fluids. She is receiving her second unit of convalescent plasma. Chest x-ray continues to show bilateral patchy perihilar and basilar infiltrates. Not much improvement. White count 9.9. Hemoglobin 11.7. Platelet count 63,000. D-dimer 3.60. Sodium 133. Potassium 3.3. Bicarb 36. Creatinine 0.63. AST 24. ALT 46. LDH 1101. C-reactive protein less than 5.0. She remains on IV Solu-Medrol, bronchodilators, Lovenox, colchicine, Pepcid, vitamin supplements. She's also been diuresed with Lasix 40 mg IV every 12 hours. The patient is seen today 12/09/2020 in follow-up in the intensive care unit. She is currently sitting up in a chair at the bedside. Awake and alert in no acute distress. Continues to require AirVo high flow oxygen at 60 L/m at 66% FiO2. She is able to tolerate a bit more activity without significant desaturations. The amount of time that it takes for her to recover is getting less. Improving in that regard. Chest x-ray still revealing bilateral scattered infiltrates. Currently no IV fluids running. Appetite is improving. White count 10.7. Hemoglobin 11.7. Platelet count dropped to 35,000. Lymphocytes 0.3. D-dimer 3.3. Sodium 132. Potassium 3.9. Creatinine 0.63. Bicarb 32. LDH 1080. C-reactive protein less than 5. She remains on IV Solu- Medrol, bronchodilators, Lovenox, colchicine, Pepcid, vitamin supplements. Diuresed with Lasix 40 mg IV every 12 hours. She remains a negative balance. The patient is seen today 12/10/2020 in follow-up in the intensive care unit. He is currently resting comfortably in bed. She remains awake and alert in no acute distress. Her oxygen requirements continued to improve slowly. She is on the AirVo at 55 L/m and 55% FiO2. No IV fluids. Her appetite has been fair. White count 9.5. Hemoglobin 12.4. Platelet count 15,000. D-dimer 2.99. Sodium 134. Potassium 3.2. Creatinine 0.61. She remains off Lovenox. HIT labs are pending. She remains on IV Solu-Medrol, bronchodilators, colchicine, Pepcid, vitamin supplements, IV diuretics. She remains a negative balance. The patient is seen today 12/14/2020 in follow-up in the intensive care unit. She is currently sitting up in a chair at the bedside. Awake and alert in no acute distress. She is down to 10 L high flow nasal cannula and maintaining O2 saturations in the low 90s. She is feeling stronger each day. She still has significant shortness of breath with minimal exertion. Blood cultures reveal no growth. White count 6.0. Hemoglobin 10.3. Platelets are up to 28,000. Sodium 127. Potassium 3.4. Creatinine 0.49. She is receiving IVIG per hematology. She remains on fluconazole for her thrush. Remains on Symbicort and albuterol. She is down to prednisone 20 mg daily. Currently in a negative balance. She is tolerating her diet. The patient is seen today 12/15/2020 in follow-up in the intensive care unit. She remains awake and alert in no acute distress. Currently on 10 L high flow nasal cannula. Maintaining O2 saturations in the low 90s. Still with significant dyspnea on minimal exertion. Working well with physical therapy. Working with the incentive spirometer. She's been up ambulating in her room. Her platelets are increasing back to 47,000. Sodium 133. Thrush is improved but persistent. Steroids have been decreased. She is receiving IVIG. Remains on bronchodilators. She had received 2 units of convalescent plasma. She has received 3 units of platelets. Hematology on the case. The patient is seen today 12/17/2020 in follow-up on the regular medical floor. She is currently sitting up in a chair at the bedside. Awake and alert in no acute distress. She continues to get stronger each day. The short of breath. Less cough and congestion. She is currently maintaining O2 saturations in the 90s on 6 L high flow nasal cannula. She's been afebrile. Hemodynamically stable. Chest x-ray shows some worsening bilateral diffuse airspace disease however clinically she is improved. She is having some complaints of foul urine. Urinalysis does show moderate amount of blood and large leukocytes and greater than 182 WBCs. Cultures are pending. She is initiated on Rocephin. Follow-up storey virus was not detected. She remains on fluconazole for her thrush. Remains on bronchodilators. Continue to work well with the incentive spirometer. Working with physical therapy. Objective - Vital Signs Vital signs: Vital Signs Temp 98.2 F 12/17/20 02:00 Pulse 93 12/17/20 07:46 Resp 22 12/17/20 07:46 BP 111/69 12/17/20 07:46 Pulse Ox 92 L 12/17/20 07:46 Intake & Output 12/16/20 12/17/20 12/17/20 18:59 06:59 18:59 Intake Total 480 Output Total 700 1000 Balance 480 -700 -1000 Weight 76.1 kg Intake: Oral 480 Output: Urine 700 1000 Straight 1000 Uretheral (Murphy) 700 Other: Voiding Method Toilet Toilet Bedside Commode Bedside Commode # Voids 2 - Exam GENERAL EXAM: Alert, pleasant, 60-year-old female patient on 6 L high flow nasal cannula with O2 saturations in the low 90s, comfortable in no apparent distress. HEAD: Normocephalic/atraumatic. EYES: Normal reaction of pupils, equal size. Conjunctiva pink, sclera white. NOSE: Clear with pink turbinates. THROAT: No erythema or exudates. NECK: No masses, no JVD, no thyroid enlargement, no adenopathy. CHEST: No chest wall deformity. Symmetrical expansion. LUNGS: Equal air entry with diffuse scattered ronchi, crackles in the bases, right greater than left CVS: Regular rate and rhythm, normal S1 and S2, no gallops, no murmurs, no rubs ABDOMEN: Soft, nontender. No hepatosplenomegaly, normal bowel sounds, no guarding or rigidity. EXTREMITIES: No clubbing, no edema, no cyanosis, 2+ pulses and upper and lower extremities. MUSCULOSKELETAL: Muscle strength and tone normal. SPINE: No scoliosis or deformity SKIN: No rashes CENTRAL NERVOUS SYSTEM: No focal deficits, tone is normal in all 4 extremities. PSYCHIATRIC: Alert and oriented -3. Appropriate affect. Intact judgment and insight. - Labs CBC & Chem 7: 12/15/20 03:55 12/15/20 13:04 Labs: Abnormal Lab Results - Last 24 Hours (Table) 12/16/20 12/16/20 12/16/20 Range/Units 05:25 11:50 17:44 POC Glucose (mg/dL) 103 H 100 H (75-99) mg/dL Lactate Dehydrogenase 335 H (120-246) U/L Urine Appearance (Clear) Urine Protein (Negative) Urine Blood (Negative) Ur Leukocyte Esterase (Negative) Urine RBC (0-5) /hpf Urine WBC (0-5) /hpf Urine WBC Clumps (None) /hpf Urine Bacteria (None) /hpf Urine Mucus (None) /hpf 12/17/20 12/17/20 12/17/20 Range/Units 07:31 08:00 08:10 POC Glucose (mg/dL) 59 L 104 H (75-99) mg/dL Lactate Dehydrogenase (120-246) U/L Urine Appearance Cloudy H (Clear) Urine Protein 1+ H (Negative) Urine Blood Moderate H (Negative) Ur Leukocyte Esterase Large H (Negative) Urine RBC 29 H (0-5) /hpf Urine WBC >182 H (0-5) /hpf Urine WBC Clumps Many H (None) /hpf Urine Bacteria Occasional H (None) /hpf Urine Mucus Rare H (None) /hpf Assessment and Plan Assessment: 1 Acute Covid 19 related pneumonia with bilateral pulmonary infiltrates most significant in the right upper lobe and the left lung seems to be diffusely infiltrated 2 Acute severe hypoxic respiratory failure, slow to progress. Currently 6 L hi gh flow nasal cannula 3 Thrombocytopenia, probably drug induced could be related to colchicine alth ough the possibility of other drugs or even consumptive thrombocytopenia related to viral infection or even HIT note that the heparin-induced thrombocytopenia antibodies came back negative and the patient received platelets, on 12/15/2020 is up to 47,000. Received IVIG per hematology. Today's labs pending. 4 Chronic persistent bronchial asthma with an FEV1 of 82-87% on outpatient basis maintained on Symbicort 5 Steroid-induced hyperglycemia, improved 6 Hypertension 7 Hypothyroidism 8 Osteoarthritis and gout 9 Peripheral neuropathy involving lower extremities 10 Peripheral vascular disease 11 Chronic normocytic anemia 12 More than [id number] smoking history patient is currently an ex-smoker 13 Hiatal hernia with reflux 14 Oral candidiasis, currently on Diflucan, steroids decreased and currently on 10 mg prednisone daily 15 Urinary tract infection, initiated on ceftriaxone, cultures pending Plan: The patient was seen and evaluated by Dr. Garcia Labs pending. Received IVIG. Most recent platelets 47,000 Suspect urinary tract infection, initiated ceftriaxone Titrate down the FiO2 as tolerated, down to 6 L high flow Continue incentive spirometry Increase activity as tolerated We will continue to follow and make further recommendations based on her clinical status I, the cosigning physician, performed a history & physical examination of the patient. Lungs sounds with bilateral scattered rhonchi, crackles in the bases, right greater than left. Maintaining good O2 saturations in the 90s on 6 L high flow nasal cannula. I discussed the assessment and plan of care with my nurse practitioner, Dang Guillen. I attest to the above note as dictated by her.
[2020-12-17 11:51] LABS: Glucose,Whole Blood 137 mg/dL (75-99)
[2020-12-17 13:08] LABS: Anisocytosis (M) 2+; Basophils # (A) 0 X 10*3/uL (0.00-0.10); Basophils % (A) 0 %; Eosinophils # (A) 0.37 X 10*3/uL (0.04-0.35); Eosinophils % (A) 6.5 %; HCT 32.2 % (37.2-46.3); HGB 9.9 g/dL (12.0-15.0); Lymphocytes # (A) 0.65 X 10*3/uL (0.90-5.00); Lymphocytes % (A) 11.5 %; MCHC 30.7 g/dL (32.0-37.0); MCV 94.4 fL (80.0-97.0); Mean Platelet Volume 11.2 fL (9.5-12.2); Monocytes # (A) 0.45 X 10*3/uL (0.20-1.00); Monocytes % (A) 7.9 %; Neutrophils # (A) 4.16 X 10*3/uL (1.80-7.70); Neutrophils % (A) 73.4 %; Platelet Count 83 X 10*3/uL (140-440); RBC 3.41 X 10*6/uL (4.10-5.20); RDW 17.2 % (11.5-14.5); WBC 5.67 X 10*3/uL (4.50-10.00)
[2020-12-17] MEDS ORDERED: MAGNESIUM CITRATE 296 ML BOTTLE PO ONE (16:28)
[2020-12-17 17:39] LABS: Glucose,Whole Blood 108 mg/dL (75-99)
[2020-12-17 20:25] LABS: Glucose,Whole Blood 143 mg/dL (75-99)
[2020-12-17] MEDS: GABAPENTIN 300 MG CAP PO SCH (20:40)
[2020-12-17] MEDS: MELATONIN 3 MG TABLET PO SCH (20:40)
[2020-12-17] MEDS: ATORVASTATIN 40 MG TAB PO SCH (20:40)
[2020-12-17] MEDS: THEOPHYLLINE 24 HOUR 300 MG CAP.ER.24H PO SCH (20:41)
[2020-12-17] MEDS: PRAMIPEXOLE 0.5 MG TAB PO SCH (20:41)
[2020-12-17] MEDS: MONTELUKAST 10 MG TAB PO SCH (20:41)
--- NOTE | 2020-12-18 02:20 | P.PN ---
Subjective Progress Note Date: 12/16/20 Principal diagnosis: Acute hypoxic respiratory failure: Secondary to Covid 19 pneumonia 60-year-old female came in with complaints of shortness of breath found to have very low oxygen saturations patient was diagnosed with Covid 19 about 3 days ago patient had having symptoms for about a week. Patient was also company of fever chills patient has low-grade fever here. Patient was seen in [facility] subsequently transferred here patient is presently on 15 L of oxygen. Patient does have history of COPD. Patient was started on Decadron. Pulmonary was consulted. She was complaining of for cough without any significant sputum production. 11/21/2020 Patient doesn't feel any better patient remains on 15 L of oxygen along with Ventimask. Breasts will be replaced patient has highly elevated inflammatory markers although d-dimer is 0.36 pulmonology will evaluate the patient to evaluate for the need for Remdesivir. 11/22/2020 Patient is currently in MICU. Awake alert and oriented x3. On BiPAP with FiO2 100% saturating at 99%. Patient is still short of breath with tachypnea.. Patient was febrile with T-max 101 Laboratory test showed D-dimer level 0.78, ferritin 1436.9, LDH 1940 and CRP 143.6 and CK 589. UA negative for infection. Procalcitonin level is 1.28. Patient is being treated with remdesivir, dexamethasone and Lovenox. On antibiotics of ceftriaxone and azithromycin. Pulmonary is following. Chest x-ray showed slight worsening of patchy infiltrates bilaterally. Findings can be compatible with atypical pneumonia. 11/23/2020 Patient is currently in the MICU. Awake alert and oriented. On BiPAP support. Denied any chest pain. Cough and shortness of breath. Mainly dry cough. Afebrile. Patient is being continued dexamethasone 6 mg daily and remdesivir course. On anticoagulation. Chest x-ray showed diffuse increasing groundglass opacities. Correlate for pulmonary edema and ARDS. Atypical pneumonia is within differential. Patient was also started ceftriaxone and azithromycin for possible bacterial pneumonia underlying with elevated procalcitonin level. Pulmonary is on board.60-year-old female came in with compensative shortness of breath found to have very low oxygen saturations patient was diagnosed with Covid 19 about 3 days ago patient had having symptoms for about a week. Patient was also company of fever chills patient has low-grade fever here. Patient was seen in [facility] subsequently transferred here patient is presently on 15 L of oxygen. Patient does have history of COPD. Patient was started on Decadron. Pulmonary was consulted. She was complaining of for cough without any significant sputum production. 11/24/2020, patient is seen for a follow-up. The patient is currently still on a BiPAP with an FiO2 of 100%; feeling slightly better; remains afebrile. The chest x-ray remains unchanged and the patient continues to have diffuse but the pulmonary infiltrates consistent with code 19 related pneumonia. Her inflammatory markers are quite abnormal. At LDH from today was 1006 and 41, and her CRP was 59. Note that the CRP level was slightly lower. The pro-calcitonin level from yesterday was 0.18. CPKs nonelevated and a triglyceride level is at 154. The patient has a d-dimer of 14.8. She remains on Lovenox at a dose of 40 mg subcu every 12 hours which is in the order of 0.5 mg per KG every 12 hours. In terms of treatment, the patient remains on Decadron 20 mg IV on the daily basis and she is on Remdesivir and she also received 2 doses of Actemra 400 mg IV. Her oral intake was noted to be quite low as the patient is unable to get herself off the BiPAP for oral intake. Based on that, the patient will be given a PICC line today and she'll be started on TPN for nutritional support to maintain her nutritional status. No fever. No chills. Hemodynamically stable. No other issues for now. Her CODE STATUS is full code. 11/25/2020 patient is seen and evaluated in room for a follow-up; patient became hypoxic again and she had to be placed back on an FiO2 of 100% with a BiPAP pressure of 14/6 cm of water. Her current respiratory rate is in the order of 22-30 breaths per minute. The patient is comfortable. She is tolerating the treatment well. Laboratory review shows d-dimer is up to 30.01. Rest of the inflammatory markers show an LDH level of 1862 and the CRP is down to 40.8. Pro-calcitonin level was at 0.18. patient has received Lovenox at a dose of 40 mg subcu every 12 hours which is in the order of 0.5 mg per KG every 12 hours. In terms of treatment, the patient remains on Decadron 20 mg IV on the daily basis they #4 and she is on Remdesivir #5 and she also received 2 doses of Actemra 400 mg IV. Meanwhile be also inserted a PICC line in the left upper extremity and the patient was started on TPN for nutritional support. No altered mentation pH is resting comfortably in bed. Is slightly higher since the patient was started on TPN and septal 187 and the will going to put this patient on sliding scale blood sugar coverage. 11/26/2020 Patient remains in ICU and remains awake and alert; currently on BiPAP; FiO2 was weaned down to 70% with stable O2 saturation; patient remains on high-dose Decadron in form of 20 mg IV daily; inflammatory markers slowly trending down including CRP of 22, LDH of 1776, d-dimer 23.4 Patient is currently on TPN for nutrition at a rate of 45 hoursalong with blood glucose monitoring every 4 hours with insulin sliding scale; remains stable on IV fluids at 50 mL per hour Patient is being followed by pulmonology service and recommended to continue with Lovenox 40 mg subcu every 12 hours, Decadron 20 mg IV daily along with completing REM treatment; patient has received 2 doses of Actemra 400 mg IV 12/08/2020 patient is seen in follow-up in the intensive care unit. She is awake and alert. She is still requiring AirVo high flow oxygen at 60 L/m and 70% FiO2 to maintain O2 saturations in the 90s. No current IV fluids. She is receiving her second unit of convalescent plasma. Chest x-ray continues to show bilateral patchy perihilar and basilar infiltrates. Not much improvement. White count 9.9. Hemoglobin 11.7. Platelet count 63,000. D-dimer 3.60. Sodium 133. Potassium 3.3. Bicarb 36. Creatinine 0.63. AST 24. ALT 46. LDH 1101. C- reactive protein less than 5.0. She remains on IV Solu-Medrol, bronchodilators, Lovenox, colchicine, Pepcid, vitamin supplements. She's also been diuresed with Lasix 40 mg IV every 12 hours. plan is to continue the treatment as indicated above; titrate down FiO2 as tolerated; continue with incentive spirometry 12/09/2020 Patient is seen and evaluated in follow-up in the intensive care unit. She is currently sitting up in a chair at the bedside. Awake and alert in no acute distress. Continues to require AirVo high flow oxygen at 60 L/m at 66% FiO2. She is able to tolerate a bit more activity without significant desaturations. The amount of time that it takes for her to recover is getting less. Improving in that regard. Chest x-ray still revealing bilateral scattered infiltrates. Currently no IV fluids running. Appetite is improving. White count 10.7. Hemoglobin 11.7. Platelet count dropped to 35,000. Lymphocytes 0.3. D-dimer 3.3. Sodium 132. Potassium 3.9. Creatinine 0.63. Bicarb 32. LDH 1080. C- reactive protein less than 5. She remains on IV Solu-Medrol, bronchodilators, Lovenox, colchicine, Pepcid, vitamin supplements. Diuresed with Lasix 40 mg IV every 12 hours. She remains a negative balance. Continue the current treatment plan; Titrate down the FiO2 as tolerated; Co ntinue incentive spirometry; Increase activity as tolerated 12/10/2020 Patient is seen and evaluated in follow-up in the intensive care unit; resting comfortably in bed. She remains awake and alert in no acute distress; oxygen requirements continued to improve slowly. She is on the AirVo at 55 L/m and 55% FiO2. No IV fluids. She remains on IV Solu-Medrol, bronchodilators, colchicine, Pepcid, vitamin supplements, IV diuretics. She remains a negative balance. Intensive care service is following and recommending to continue to monitor in ICU 12/11/2020 Patient is currently in the MICU. On Airvo at 15 L and FiO2 of 50%. Currently sitting in the chair and awake alert and oriented. Tolerating oral diet. Next and patient is being continued on IV Solu-Medrol. Patient is having severe thrombocytopenia with platelet count 9000 today. Other laboratory data showed sodium 131 potassium 3.6) 91 BUN 31 and creatinine 0.59 Patient was started on 40 mg of IV Lasix daily. 12/12/2020 Patient is currently in MICU. Sitting in a chair comfortably. Requiring high flow oxygen at 15 L and FiO2 45%. Chest x-ray showed diffuse bilateral pulmonary infiltrates without any significant change. Breathing status is slightly better. Platelet count is at 6000 today. Patient is being continued on Solu-Medrol 40 mg IV every 8 hours. Patient is getting another platelet transfusion today. Inflammatory markers are trending down. Pulmonary and oncology is on board. 12/13/2020 Patient is in the MICU and oxygen requirement slightly lower than yesterday currently on high flow oxygen via nasal cannula. Breathing status is stable but still having exertional dyspnea. Platelet count is 8 came today. No complains of bruising or bleeding episodes. Laboratory data showed sodium 127, potassium 3.2, chloride 91, bicarb 23, BUN 23 and creatinine 0.57 Patient has been afebrile. No nausea vomiting or abdominal pain. Tolerating oral diet. No diarrhea. No chest pain. 12/16/2020 Patient was transferred to medical floor yesterday. Currently patient is 6 L oxygen via nasal cannula. Inflammatory markers are trending down. Platelet count did improve. Patient has been continued steroids and titrate down to prednisone 10 mg daily. Patient received IV immunoglobulin for ITP. No other acute overnight issues. Patient able to tolerate oral diet. Continue Diflucan for possible oropharyngeal candidiasis. Chest x-ray showed stable pulmonary infiltrates. Pulmonary is on board. Patient has been afebrile. No chest pain. No headache or dizziness lightheadedness. Awake alert oriented x3. Current medications reviewed. All inpatient medications were reviewed and appropriate changes in these medications as dictated in the interval history and assessment and plan. Objective - Vital Signs Vital signs: Vital Signs Temp 97.7 F 12/16/20 10:53 Pulse 111 H 12/16/20 10:53 Resp 22 12/16/20 10:53 BP 120/81 12/16/20 10:53 Pulse Ox 97 12/16/20 10:53 Intake & Output 12/15/20 12/16/20 12/16/20 18:59 06:59 18:59 Intake Total 401.367 Output Total 2200 Balance -1798.633 Weight 75 kg Intake: Intake, IV Titration 401.367 Amount Fluconazole in NaCl,Iso- 50 Osm 100 mg In Saline 1 50ml.bag @ 50 mls/hr IVPB DAILY [facility] Rx#:[id number] Immune Globulin ( 200 Gammagard) 20 gm In Empty Bag 1 bag @ Titrate IV . Q0M ONE Rx#:[id number] Immune Globulin ( 151.367 Gammagard) 20 gm In Empty Bag 1 bag @ Titrate IV . Q0M ONE Rx#:[id number] Output: Urine 2200 Other: Voiding Method Toilet Toilet Bedside Commode Bedside Commode # Voids 4 - Exam - Exam GENERAL: The patient is alert and oriented x3, not in any acute distress. Well developed, well nourished. HEENT: Pupils are round and equally reacting to light. EOMI. No scleral icterus. No conjunctival pallor. Normocephalic, atraumatic. No pharyngeal erythema. No thyromegaly. CARDIOVASCULAR: S1 and S2 present. No murmurs, rubs, or gallops. PULMONARY: Diffuse bilateral rhonchi without any significant wheezing fairly good air entry into bilateral lung ruiz ABDOMEN: Soft, nontender, nondistended, normoactive bowel sounds. No palpable o rganomegaly. MUSCULOSKELETAL: No joint swelling or deformity. EXTREMITIES: No cyanosis, clubbing, patient does have some pedal edema NEUROLOGICAL: Gross neurological examination did not reveal any focal deficits. - Labs CBC & Chem 7: 12/17/20 06:37 12/15/20 13:04 Labs: Abnormal Lab Results - Last 24 Hours (Table) 12/15/20 12/16/20 12/16/20 Range/Units 21:08 05:25 07:36 APTT 19.6 L (22.0-30.0) sec D-Dimer 9.01 H (<0.60) mg/L FEU POC Glucose (mg/dL) 107 H 69 L (75-99) mg/dL Assessment and Plan Assessment: -Acute severe hypoxic respiratory failure Secondary to Covid 19 pneumonia: Initially Requiring BiPAP. Currently on Airvo 50 L and 45% FiO2--13L NC.. patient is being continued on Solu-Medrol, multivitamins and DVT prophylaxis. Completed remdesivir 5 day course.. -Severe thrombocytopenia/ ITP . s/p IVIG . possible drug-induced and also rela ebenezer to infection. -Chronic persistent asthma mild acute exacerbation secondary to Covid 19. Continued on steroids and Symbicort and breathing treatments. -Hyperlipidemia -Hypothyroidism -History of gout . Not in exacerbation. Colchicine has been discontinued due to severe thrombocytopenia. -Peripheral edema: Due to probably chronic venous stasis and patient will be resumed on Lasix oral. -Hiatal hernia with gastroesophageal reflux disease patient was resumed on Prilosec -GI prophylaxis as well as Lovenox for DVT prophylaxis. CODE STATUS; full code Plan: Patient will be continued on current high flow oxygen and titrate down FiO2. Continued on IV steroids and breathing treatments as needed. Patient was transfused with 2 units of FFP and 1 unit of platelets on 12/11/2020. Monitor platelet count closely and transfuse if the platelet count is less than 10 K. Count is improving now.Received IVIG Heparin has been discontinued. Platelet factor 4 antibodies negative. LFTs are within normal limits. Coags are within normal limits as well. Colchicine has been discontinued. Pulmonary and hematology is on board. Time with Patient: Greater than 30
--- NOTE | 2020-12-18 02:23 | P.PN ---
Subjective Progress Note Date: 12/17/20 Principal diagnosis: Acute hypoxic respiratory failure: Secondary to Covid 19 pneumonia 60-year-old female came in with complaints of shortness of breath found to have very low oxygen saturations patient was diagnosed with Covid 19 about 3 days ago patient had having symptoms for about a week. Patient was also company of fever chills patient has low-grade fever here. Patient was seen in [facility] subsequently transferred here patient is presently on 15 L of oxygen. Patient does have history of COPD. Patient was started on Decadron. Pulmonary was consulted. She was complaining of for cough without any significant sputum production. 11/21/2020 Patient doesn't feel any better patient remains on 15 L of oxygen along with Ventimask. Breasts will be replaced patient has highly elevated inflammatory markers although d-dimer is 0.36 pulmonology will evaluate the patient to evaluate for the need for Remdesivir. 11/22/2020 Patient is currently in MICU. Awake alert and oriented x3. On BiPAP with FiO2 100% saturating at 99%. Patient is still short of breath with tachypnea.. Patient was febrile with T-max 101 Laboratory test showed D-dimer level 0.78, ferritin 1436.9, LDH 1940 and CRP 143.6 and CK 589. UA negative for infection. Procalcitonin level is 1.28. Patient is being treated with remdesivir, dexamethasone and Lovenox. On antibiotics of ceftriaxone and azithromycin. Pulmonary is following. Chest x-ray showed slight worsening of patchy infiltrates bilaterally. Findings can be compatible with atypical pneumonia. 11/23/2020 Patient is currently in the MICU. Awake alert and oriented. On BiPAP support. Denied any chest pain. Cough and shortness of breath. Mainly dry cough. Afebrile. Patient is being continued dexamethasone 6 mg daily and remdesivir course. On anticoagulation. Chest x-ray showed diffuse increasing groundglass opacities. Correlate for pulmonary edema and ARDS. Atypical pneumonia is within differential. Patient was also started ceftriaxone and azithromycin for possible bacterial pneumonia underlying with elevated procalcitonin level. Pulmonary is on board.60-year-old female came in with compensative shortness of breath found to have very low oxygen saturations patient was diagnosed with Covid 19 about 3 days ago patient had having symptoms for about a week. Patient was also company of fever chills patient has low-grade fever here. Patient was seen in [facility] subsequently transferred here patient is presently on 15 L of oxygen. Patient does have history of COPD. Patient was started on Decadron. Pulmonary was consulted. She was complaining of for cough without any significant sputum production. 11/24/2020, patient is seen for a follow-up. The patient is currently still on a BiPAP with an FiO2 of 100%; feeling slightly better; remains afebrile. The chest x-ray remains unchanged and the patient continues to have diffuse but the pulmonary infiltrates consistent with code 19 related pneumonia. Her inflammatory markers are quite abnormal. At LDH from today was 1006 and 41, and her CRP was 59. Note that the CRP level was slightly lower. The pro-calcitonin level from yesterday was 0.18. CPKs nonelevated and a triglyceride level is at 154. The patient has a d-dimer of 14.8. She remains on Lovenox at a dose of 40 mg subcu every 12 hours which is in the order of 0.5 mg per KG every 12 hours. In terms of treatment, the patient remains on Decadron 20 mg IV on the daily basis and she is on Remdesivir and she also received 2 doses of Actemra 400 mg IV. Her oral intake was noted to be quite low as the patient is unable to get herself off the BiPAP for oral intake. Based on that, the patient will be given a PICC line today and she'll be started on TPN for nutritional support to maintain her nutritional status. No fever. No chills. Hemodynamically stable. No other issues for now. Her CODE STATUS is full code. 11/25/2020 patient is seen and evaluated in room for a follow-up; patient became hypoxic again and she had to be placed back on an FiO2 of 100% with a BiPAP pressure of 14/6 cm of water. Her current respiratory rate is in the order of 22-30 breaths per minute. The patient is comfortable. She is tolerating the treatment well. Laboratory review shows d-dimer is up to 30.01. Rest of the inflammatory markers show an LDH level of 1862 and the CRP is down to 40.8. Pro-calcitonin level was at 0.18. patient has received Lovenox at a dose of 40 mg subcu every 12 hours which is in the order of 0.5 mg per KG every 12 hours. In terms of treatment, the patient remains on Decadron 20 mg IV on the daily basis they #4 and she is on Remdesivir #5 and she also received 2 doses of Actemra 400 mg IV. Meanwhile be also inserted a PICC line in the left upper extremity and the patient was started on TPN for nutritional support. No altered mentation pH is resting comfortably in bed. Is slightly higher since the patient was started on TPN and septal 187 and the will going to put this patient on sliding scale blood sugar coverage. 11/26/2020 Patient remains in ICU and remains awake and alert; currently on BiPAP; FiO2 was weaned down to 70% with stable O2 saturation; patient remains on high-dose Decadron in form of 20 mg IV daily; inflammatory markers slowly trending down including CRP of 22, LDH of 1776, d-dimer 23.4 Patient is currently on TPN for nutrition at a rate of 45 hoursalong with blood glucose monitoring every 4 hours with insulin sliding scale; remains stable on IV fluids at 50 mL per hour Patient is being followed by pulmonology service and recommended to continue with Lovenox 40 mg subcu every 12 hours, Decadron 20 mg IV daily along with completing REM treatment; patient has received 2 doses of Actemra 400 mg IV 12/08/2020 patient is seen in follow-up in the intensive care unit. She is awake and alert. She is still requiring AirVo high flow oxygen at 60 L/m and 70% FiO2 to maintain O2 saturations in the 90s. No current IV fluids. She is receiving her second unit of convalescent plasma. Chest x-ray continues to show bilateral patchy perihilar and basilar infiltrates. Not much improvement. White count 9.9. Hemoglobin 11.7. Platelet count 63,000. D-dimer 3.60. Sodium 133. Potassium 3.3. Bicarb 36. Creatinine 0.63. AST 24. ALT 46. LDH 1101. C- reactive protein less than 5.0. She remains on IV Solu-Medrol, bronchodilators, Lovenox, colchicine, Pepcid, vitamin supplements. She's also been diuresed with Lasix 40 mg IV every 12 hours. plan is to continue the treatment as indicated above; titrate down FiO2 as tolerated; continue with incentive spirometry 12/09/2020 Patient is seen and evaluated in follow-up in the intensive care unit. She is currently sitting up in a chair at the bedside. Awake and alert in no acute distress. Continues to require AirVo high flow oxygen at 60 L/m at 66% FiO2. She is able to tolerate a bit more activity without significant desaturations. The amount of time that it takes for her to recover is getting less. Improving in that regard. Chest x-ray still revealing bilateral scattered infiltrates. Currently no IV fluids running. Appetite is improving. White count 10.7. Hemoglobin 11.7. Platelet count dropped to 35,000. Lymphocytes 0.3. D-dimer 3.3. Sodium 132. Potassium 3.9. Creatinine 0.63. Bicarb 32. LDH 1080. C- reactive protein less than 5. She remains on IV Solu-Medrol, bronchodilators, Lovenox, colchicine, Pepcid, vitamin supplements. Diuresed with Lasix 40 mg IV every 12 hours. She remains a negative balance. Continue the current treatment plan; Titrate down the FiO2 as tolerated; Co ntinue incentive spirometry; Increase activity as tolerated 12/10/2020 Patient is seen and evaluated in follow-up in the intensive care unit; resting comfortably in bed. She remains awake and alert in no acute distress; oxygen requirements continued to improve slowly. She is on the AirVo at 55 L/m and 55% FiO2. No IV fluids. She remains on IV Solu-Medrol, bronchodilators, colchicine, Pepcid, vitamin supplements, IV diuretics. She remains a negative balance. Intensive care service is following and recommending to continue to monitor in ICU 12/11/2020 Patient is currently in the MICU. On Airvo at 15 L and FiO2 of 50%. Currently sitting in the chair and awake alert and oriented. Tolerating oral diet. Next and patient is being continued on IV Solu-Medrol. Patient is having severe thrombocytopenia with platelet count 9000 today. Other laboratory data showed sodium 131 potassium 3.6) 91 BUN 31 and creatinine 0.59 Patient was started on 40 mg of IV Lasix daily. 12/12/2020 Patient is currently in MICU. Sitting in a chair comfortably. Requiring high flow oxygen at 15 L and FiO2 45%. Chest x-ray showed diffuse bilateral pulmonary infiltrates without any significant change. Breathing status is slightly better. Platelet count is at 6000 today. Patient is being continued on Solu-Medrol 40 mg IV every 8 hours. Patient is getting another platelet transfusion today. Inflammatory markers are trending down. Pulmonary and oncology is on board. 12/13/2020 Patient is in the MICU and oxygen requirement slightly lower than yesterday currently on high flow oxygen via nasal cannula. Breathing status is stable but still having exertional dyspnea. Platelet count is 8 came today. No complains of bruising or bleeding episodes. Laboratory data showed sodium 127, potassium 3.2, chloride 91, bicarb 23, BUN 23 and creatinine 0.57 Patient has been afebrile. No nausea vomiting or abdominal pain. Tolerating oral diet. No diarrhea. No chest pain. 12/16/2020 Patient was transferred to medical floor yesterday. Currently patient is 6 L oxygen via nasal cannula. Inflammatory markers are trending down. Platelet count did improve. Patient has been continued steroids and titrate down to prednisone 10 mg daily. Patient received IV immunoglobulin for ITP. No other acute overnight issues. Patient able to tolerate oral diet. Continue Diflucan for possible oropharyngeal candidiasis. Chest x-ray showed stable pulmonary infiltrates. Pulmonary is on board. Patient has been afebrile. No chest pain. No headache or dizziness lightheadedness. Awake alert oriented x3. 12/17/2020 Patient is currently sitting on side of the bed. Denies any complaints of fever or chills. Shortness of breath is improving. Patient is less dyspneic and currently requiring 6 L high flow oxygen via nasal cannula. Chest x-ray showed somewhat worsening bilateral diffuse airspace disease. Otherwise patient denied any swallowing difficulty. No complaints of chest pain or shortness of. COVID-19 PCR came back negative. Currently antibiotics of ceftriaxone and prednisone 10 mg daily and breathing treatments. Pulmonary is on board. Current medications reviewed. All inpatient medications were reviewed and appropriate changes in these medications as dictated in the interval history and assessment and plan. Objective - Vital Signs Vital signs: Vital Signs Temp 98.2 F 12/17/20 14:00 Pulse 103 H 12/17/20 14:00 Resp 20 12/17/20 14:00 BP 120/80 12/17/20 14:00 Pulse Ox 99 12/17/20 14:00 Intake & Output 12/16/20 12/17/20 12/17/20 18:59 06:59 18:59 Intake Total 480 Output Total 700 1600 Balance 480 -700 -1600 Weight 76.1 kg Intake: Oral 480 Output: Urine 700 1600 Straight 1000 Uretheral (Murphy) 700 600 Other: Voiding Method Toilet Toilet Bedside Commode Bedside Commode # Voids 2 - Exam - Exam GENERAL: The patient is alert and oriented x3, not in any acute distress. Well developed, well nourished. HEENT: Pupils are round and equally reacting to light. EOMI. No scleral icterus. No conjunctival pallor. Normocephalic, atraumatic. No pharyngeal erythema. No thyromegaly. CARDIOVASCULAR: S1 and S2 present. No murmurs, rubs, or gallops. PULMONARY: Diffuse bilateral rhonchi without any significant wheezing fairly good air entry into bilateral lung ruiz ABDOMEN: Soft, nontender, nondistended, normoactive bowel sounds. No palpable organomegaly. MUSCULOSKELETAL: No joint swelling or deformity. EXTREMITIES: No cyanosis, clubbing, patient does have some pedal edema NEUROLOGICAL: Gross neurological examination did not reveal any focal deficits. - Labs CBC & Chem 7: 12/17/20 06:37 12/15/20 13:04 Labs: Abnormal Lab Results - Last 24 Hours (Table) 12/16/20 12/17/20 12/17/20 Range/Units 17:44 06:37 07:31 RBC 3.41 L (4.10-5.20) X 10*6/uL Hgb 9.9 L (12.0-15.0) g/dL Hct 32.2 L (37.2-46.3) % MCHC 30.7 L (32.0-37.0) g/dL RDW 17.2 H (11.5-14.5) % Plt Count 83 L (140-440) X 10*3/uL Plt Count Comment A Lymphocytes # 0.65 L (0.90-5.00) X 10*3/uL Eosinophils # 0.37 H (0.04-0.35) X 10*3/uL POC Glucose (mg/dL) 100 H 59 L (75-99) mg/dL Urine Appearance (Clear) Urine Protein (Negative) Urine Blood (Negative) Ur Leukocyte Esterase (Negative) Urine RBC (0-5) /hpf Urine WBC (0-5) /hpf Urine WBC Clumps (None) /hpf Urine Bacteria (None) /hpf Urine Mucus (None) /hpf 12/17/20 12/17/20 12/17/20 Range/Units 08:00 08:10 11:36 RBC (4.10-5.20) X 10*6/uL Hgb (12.0-15.0) g/dL Hct (37.2-46.3) % MCHC (32.0-37.0) g/dL RDW (11.5-14.5) % Plt Count (140-440) X 10*3/uL Plt Count Comment Lymphocytes # (0.90-5.00) X 10*3/uL Eosinophils # (0.04-0.35) X 10*3/uL POC Glucose (mg/dL) 104 H 137 H (75-99) mg/dL Urine Appearance Cloudy H (Clear) Urine Protein 1+ H (Negative) Urine Blood Moderate H (Negative) Ur Leukocyte Esterase Large H (Negative) Urine RBC 29 H (0-5) /hpf Urine WBC >182 H (0-5) /hpf Urine WBC Clumps Many H (None) /hpf Urine Bacteria Occasional H (None) /hpf Urine Mucus Rare H (None) /hpf 12/17/20 Range/Units 17:12 RBC (4.10-5.20) X 10*6/uL Hgb (12.0-15.0) g/dL Hct (37.2-46.3) % MCHC (32.0-37.0) g/dL RDW (11.5-14.5) % Plt Count (140-440) X 10*3/uL Plt Count Comment Lymphocytes # (0.90-5.00) X 10*3/uL Eosinophils # (0.04-0.35) X 10*3/uL POC Glucose (mg/dL) 108 H (75-99) mg/dL Urine Appearance (Clear) Urine Protein (Negative) Urine Blood (Negative) Ur Leukocyte Esterase (Negative) Urine RBC (0-5) /hpf Urine WBC (0-5) /hpf Urine WBC Clumps (None) /hpf Urine Bacteria (None) /hpf Urine Mucus (None) /hpf Assessment and Plan Assessment: -Acute severe hypoxic respiratory failure Secondary to Covid 19 pneumonia: Initially Requiring BiPAP. Currently on 6L NC.. patient is being continued on Solu-Medrol-->Prednisone, multivitamins and DVT prophylaxis. Completed remdesivir 5 day course.. -Severe thrombocytopenia/ ITP . s/p IVIG . possible drug-induced and also related to infection. -Chronic persistent asthma mild acute exacerbation secondary to Covid 19. Continued on steroids and Symbicort and breathing treatments. -Hyperlipidemia -Hypothyroidism -History of gout . Not in exacerbation. Colchicine has been discontinued due to severe thrombocytopenia. -Peripheral edema: Due to probably chronic venous stasis and patient will be resumed on Lasix oral. -Hiatal hernia with gastroesophageal reflux disease patient was resumed on Prilosec -GI prophylaxis as well as Lovenox for DVT prophylaxis. CODE STATUS; full code Plan: Patient will be continued on current high flow oxygen and titrate down FiO2. Continued on IV steroids and breathing treatments as needed. Patient was transfused with 2 units of FFP and 1 unit of platelets on 12/11/2020. Monitor platelet count closely and transfuse if the platelet count is less than 10 K. Count is improving now.Received IVIG Heparin has been discontinued. Platelet factor 4 antibodies negative. LFTs are within normal limits. Coags are within normal limits as well. Colchicine has been discontinued. Pulmonary and hematology is on board. Time with Patient: Greater than 30
[2020-12-18] MEDS: SALT AND SODA MOUTHWASH 1,000 ML PO SCH ×4 (05:47→22:02)
[2020-12-18] MEDS: LEVOTHYROXINE 75 MCG TAB PO SCH (05:47)
[2020-12-18 07:28] LABS: Glucose,Whole Blood 80 mg/dL (75-99)
[2020-12-18] MEDS: ALBUTEROL HFA INHALER INHALATION SCH ×4 (08:08→19:25)
[2020-12-18] MEDS: TIOTROPIUM 2.5 MCG INHALER INHALATION SCH (08:09)
[2020-12-18] MEDS: SYMBICORT 160-4.5 MCG INHALER INHALATION SCH ×2 (08:09→19:25)
[2020-12-18] MEDS: INSULIN ASPART (NovoLOG) 100 UNIT/ML VIAL SQ SCH ×4 (08:50→21:50)
[2020-12-18] MEDS: ASCORBIC ACID 500 MG TAB PO SCH (09:28)
[2020-12-18] MEDS: ZINC SULFATE 220 MG CAP PO SCH (09:28)
[2020-12-18] MEDS: SUCRALFATE 1 GM TAB PO SCH ×4 (09:29→22:01)
[2020-12-18] MEDS: SODIUM CHLORIDE TAB 1 GM TAB PO SCH ×3 (09:29→23:49)
[2020-12-18] MEDS: predniSONE 10 MG TAB PO SCH (09:29)
[2020-12-18] MEDS: GABAPENTIN 100 MG CAP PO SCH ×2 (09:30→12:00)
[2020-12-18] MEDS: FLUCONAZOLE IN NACL,ISO-OSM 100 MG in SALINE 1 50ML.BAG IVPB SCH (09:30)
[2020-12-18] MEDS: MAG HYDROX/AL HYDROX/SIMETH 30 ML, LIDOCAINE VISCOUS 30 ML, diphenhydrAMINE ELIXIR 75 M... PO SCH ×12 (09:33→22:01)
[2020-12-18] MEDS: LACTULOSE 20 GM/30 ML CUP PO PRN (09:47)
[2020-12-18 11:51] LABS: Glucose,Whole Blood 137 mg/dL (75-99)
--- NOTE | 2020-12-18 12:51 | P.PN ---
Subjective Progress Note Date: 12/18/20 Principal diagnosis: covid 19, thrombocytopenia (ITP) In f/u today pt is doing better, on regular NC for O2, cough is still very congested, voice is hoarse, mouth is better, denies DAVID or pain, general medical debility and weakness, mild to moderate. Objective - Vital Signs Vital signs: Vital Signs Temp 98.5 F 12/18/20 08:00 Pulse 112 H 12/18/20 08:00 Resp 20 12/18/20 08:00 BP 108/70 12/18/20 08:00 Pulse Ox 92 L 12/18/20 08:00 Intake & Output 12/17/20 12/18/20 12/18/20 18:59 06:59 18:59 Intake Total 500 Output Total 1600 600 Balance -1600 -100 Weight 76.6 kg Intake: Oral 500 Output: Urine 1600 600 Straight 1000 Uretheral (Murphy) 600 Other: Voiding Method Toilet Indwelling Catheter Bedside Commode - Constitutional General appearance: Present: average body habitus, cooperative, no acute distress - EENT Eyes: Present: anicteric sclerae, EOMI ENT: Present: hearing grossly normal, normal oropharynx - Respiratory Respiratory: bilateral: CTA, diminished - Cardiovascular Rhythm: regular Heart sounds: normal: S1, S2 Abnormal Heart Sounds: Absent: systolic murmur, diastolic murmur, rub, S3 Gallop, S4 Gallop, click, other - Peripheral edema foot Peripheral Edema: bilateral: Trace - Gastrointestinal General gastrointestinal: Present: decreased bowel sounds, distended, soft - Integumentary Integumentary: Present: normal - Neurologic Neurologic: Present: CNII-XII intact - Musculoskeletal Musculoskeletal: Present: generalized weakness, strength equal bilaterally - Psychiatric Psychiatric: Present: A&O x's 3, appropriate affect, intact judgment & insight - Labs CBC & Chem 7: 12/17/20 06:37 12/15/20 13:04 Labs: Abnormal Lab Results - Last 24 Hours (Table) 12/17/20 12/17/20 12/17/20 Range/Units 06:37 17:12 20:24 RBC 3.41 L (4.10-5.20) X 10*6/uL Hgb 9.9 L (12.0-15.0) g/dL Hct 32.2 L (37.2-46.3) % MCHC 30.7 L (32.0-37.0) g/dL RDW 17.2 H (11.5-14.5) % Plt Count 83 L (140-440) X 10*3/uL Plt Count Comment A Lymphocytes # 0.65 L (0.90-5.00) X 10*3/uL Eosinophils # 0.37 H (0.04-0.35) X 10*3/uL POC Glucose (mg/dL) 108 H 143 H (75-99) mg/dL 12/18/20 Range/Units 11:47 RBC (4.10-5.20) X 10*6/uL Hgb (12.0-15.0) g/dL Hct (37.2-46.3) % MCHC (32.0-37.0) g/dL RDW (11.5-14.5) % Plt Count (140-440) X 10*3/uL Plt Count Comment Lymphocytes # (0.90-5.00) X 10*3/uL Eosinophils # (0.04-0.35) X 10*3/uL POC Glucose (mg/dL) 137 H (75-99) mg/dL Microbiology - Last 24 Hours (Table) 12/17/20 08:00 Urine Culture - Preliminary Urine,Clean Catch Assessment and Plan (1) Thrombocytopenia Narrative/Plan: New onset in the setting of acute illness. IVIG x 3 completed, progressive increase in plt counts. Pending CBC from AM today (1300 with no results yet). Cont supportive care, close monitoring of CBC and for bleeding. HIT ab neg [id number] ordered to rule out unusual presentation of TTP/HUS We will cont to follow with you and order additional studies as appropriate. Current Visit: Yes Status: Acute Priority: High Code(s): D69.6 - THROMBOCYTOPENIA, UNSPECIFIED SNOMED Code(s): 614042104 (2) Mucositis Narrative/Plan: Cont kools and salt and soda continue. Slowly improving Current Visit: Yes Status: Acute Priority: High Code(s): K12.30 - ORAL MUCOSITIS (ULCERATIVE), UNSPECIFIED SNOMED Code(s): 64602761 (3) Acute ITP Narrative/Plan: 2/2 covid infection. IVIG dosed and administered x 3. Plt improving. Pending today's CBC (its 1300 with no results yet). Current Visit: Yes Status: Acute Priority: High Code(s): D69.3 - IMMUNE THROMBOCYTOPENIC PURPURA SNOMED Code(s): 15064560
--- NOTE | 2020-12-18 13:42 | P.PN ---
Subjective Progress Note Date: 12/18/20 Acute hypoxic respiratory failure: Secondary to Covid 19 pneumonia 60-year-old female came in with complaints of shortness of breath found to have very low oxygen saturations patient was diagnosed with Covid 19 about 3 days ago patient had having symptoms for about a week. Patient was also company of fever chills patient has low-grade fever here. Patient was seen in [facility] subsequently transferred here patient is presently on 15 L of oxygen. Patient does have history of COPD. Patient was started on Decadron. Pulmonary was consulted. She was complaining of for cough without any significant sputum production. 11/21/2020 Patient doesn't feel any better patient remains on 15 L of oxygen along with Ventimask. Breasts will be replaced patient has highly elevated inflammatory markers although d-dimer is 0.36 pulmonology will evaluate the patient to evaluate for the need for Remdesivir. 11/22/2020 Patient is currently in MICU. Awake alert and oriented x3. On BiPAP with FiO2 100% saturating at 99%. Patient is still short of breath with tachypnea.. Patient was febrile with T-max 101 Laboratory test showed D-dimer level 0.78, ferritin 1436.9, LDH 1940 and CRP 143.6 and CK 589. UA negative for infection. Procalcitonin level is 1.28. Patient is being treated with remdesivir, dexamethasone and Lovenox. On antibiotics of ceftriaxone and azithromycin. Pulmonary is following. Chest x-ray showed slight worsening of patchy infiltrates bilaterally. Findings can be compatible with atypical pneumonia. 11/23/2020 Patient is currently in the MICU. Awake alert and oriented. On BiPAP support. Denied any chest pain. Cough and shortness of breath. Mainly dry cough. Afebrile. Patient is being continued dexamethasone 6 mg daily and remdesivir course. On anticoagulation. Chest x-ray showed diffuse increasing groundglass opacities. Correlate for pulmonary edema and ARDS. Atypical pneumonia is within differential. Patient was also started ceftriaxone and azithromycin for possible bacterial pneumonia underlying with elevated procalcitonin level. Pulmonary is on board.60-year-old female came in with compensative shortness of breath found to have very low oxygen saturations patient was diagnosed with Covid 19 about 3 days ago patient had having symptoms for about a week. Patient was also company of fever chills patient has low-grade fever here. Patient was seen in [facility] subsequently transferred here patient is presently on 15 L of oxygen. Patient does have history of COPD. Patient was started on Decadron. Pulmonary was consulted. She was complaining of for cough without any significant sputum production. 11/24/2020 patient is seen for a follow-up. The patient is currently still on a BiPAP with an FiO2 of 100%; feeling slightly better; remains afebrile. The chest x-ray remains unchanged and the patient continues to have diffuse but the pulmonary infiltrates consistent with code 19 related pneumonia. Her inflammatory markers are quite abnormal. At LDH from today was 1006 and 41, and her CRP was 59. Note that the CRP level was slightly lower. The pro-calcitonin level from yesterday was 0.18. CPKs nonelevated and a triglyceride level is at 154. The patient has a d-dimer of 14.8. She remains on Lovenox at a dose of 40 mg subcu every 12 hours which is in the order of 0.5 mg per KG every 12 hours. In terms of treatment, the patient remains on Decadron 20 mg IV on the daily basis and she is on Remdesivir and she also received 2 doses of Actemra 400 mg IV. Her oral intake was noted to be quite low as the patient is unable to get herself off the BiPAP for oral intake. Based on that, the patient will be given a PICC line today and she'll be started on TPN for nutritional support to maintain her nutritional status. No fever. No chills. Hemodynamically stable. No other issues for now. Her CODE STATUS is full code. 11/25/2020 patient is seen and evaluated in room for a follow-up; patient became hypoxic again and she had to be placed back on an FiO2 of 100% with a BiPAP pressure of 14/6 cm of water. Her current respiratory rate is in the order of 22-30 breaths per minute. The patient is comfortable. She is tolerating the treatment well. Laboratory review shows d-dimer is up to 30.01. Rest of the inflammatory markers show an LDH level of 1862 and the CRP is down to 40.8. Pro-calcitonin level was at 0.18. patient has received Lovenox at a dose of 40 mg subcu every 12 hours which is in the order of 0.5 mg per KG every 12 hours. In terms of treatment, the patient remains on Decadron 20 mg IV on the daily basis they #4 and she is on Remdesivir #5 and she also received 2 doses of Actemra 400 mg IV. Meanwhile be also inserted a PICC line in the left upper extremity and the patient was started on TPN for nutritional support. No altered mentation pH is resting comfortably in bed. Is slightly higher since the patient was started on TPN and septal 187 and the will going to put this patient on sliding scale blood sugar coverage. 11/26/2020 Patient remains in ICU and remains awake and alert; currently on BiPAP; FiO2 was weaned down to 70% with stable O2 saturation; patient remains on high-dose Decadron in form of 20 mg IV daily; inflammatory markers slowly trending down including CRP of 22, LDH of 1776, d-dimer 23.4 Patient is currently on TPN for nutrition at a rate of 45 hoursalong with blood glucose monitoring every 4 hours with insulin sliding scale; remains stable on IV fluids at 50 mL per hour Patient is being followed by pulmonology service and recommended to continue with Lovenox 40 mg subcu every 12 hours, Decadron 20 mg IV daily along with completing REM treatment; patient has received 2 doses of Actemra 400 mg IV 12/08/2020 patient is seen in follow-up in the intensive care unit. She is awake and alert. She is still requiring AirVo high flow oxygen at 60 L/m and 70% FiO2 to maintain O2 saturations in the 90s. No current IV fluids. She is receiving her second unit of convalescent plasma. Chest x-ray continues to show bilateral patchy perihilar and basilar infiltrates. Not much improvement. White count 9.9. Hemoglobin 11.7. Platelet count 63,000. D-dimer 3.60. Sodium 133. Potassium 3.3. Bicarb 36. Creatinine 0.63. AST 24. ALT 46. LDH 1101. C- reactive protein less than 5.0. She remains on IV Solu-Medrol, bronchodilators, Lovenox, colchicine, Pepcid, vitamin supplements. She's also been diuresed with Lasix 40 mg IV every 12 hours. plan is to continue the treatment as indicated above; titrate down FiO2 as tolerated; continue with incentive spirometry 12/09/2020 Patient is seen and evaluated in follow-up in the intensive care unit. She is currently sitting up in a chair at the bedside. Awake and alert in no acute distress. Continues to require AirVo high flow oxygen at 60 L/m at 66% FiO2. She is able to tolerate a bit more activity without significant desaturations. The amount of time that it takes for her to recover is getting less. Improving in that regard. Chest x-ray still revealing bilateral scattered infiltrates. Currently no IV fluids running. Appetite is improving. White count 10.7. Hemoglobin 11.7. Platelet count dropped to 35,000. Lymphocytes 0.3. D-dimer 3.3. Sodium 132. Potassium 3.9. Creatinine 0.63. Bicarb 32. LDH 1080. C- reactive protein less than 5. She remains on IV Solu-Medrol, bronchodilators, Lovenox, colchicine, Pepcid, vitamin supplements. Diuresed with Lasix 40 mg IV every 12 hours. She remains a negative balance. Continue the current treatment plan; Titrate down the FiO2 as tolerated; Continue incentive spirometry; Increase activity as tolerated 12/10/2020 Patient is seen and evaluated in follow-up in the intensive care unit; resting comfortably in bed. She remains awake and alert in no acute distress; oxygen requirements continued to improve slowly. She is on the AirVo at 55 L/m and 55% FiO2. No IV fluids. She remains on IV Solu-Medrol, bronchodilators, colchicine, Pepcid, vitamin supplements, IV diuretics. She remains a negative balance. Intensive care service is following and recommending to continue to monitor in ICU 12/11/2020 Patient is currently in the MICU. On Airvo at 15 L and FiO2 of 50%. Currently sitting in the chair and awake alert and oriented. Tolerating oral diet. Next and patient is being continued on IV Solu-Medrol. Patient is having severe thrombocytopenia with platelet count 9000 today. Other laboratory data showed sodium 131 potassium 3.6) 91 BUN 31 and creatinine 0.59 Patient was started on 40 mg of IV Lasix daily. 12/12/2020 Patient is currently in MICU. Sitting in a chair comfortably. Requiring high flow oxygen at 15 L and FiO2 45%. Chest x-ray showed diffuse bilateral p ulmonary infiltrates without any significant change. Breathing status is slightly better. Platelet count is at 6000 today. Patient is being continued on Solu-Medrol 40 mg IV every 8 hours. Patient is getting another platelet transfusion today. Inflammatory markers are trending down. Pulmonary and oncology is on board. 12/13/2020 Patient is in the MICU and oxygen requirement slightly lower than yesterday currently on high flow oxygen via nasal cannula. Breathing status is stable but still having exertional dyspnea. Platelet count is 8 came today. No complains of bruising or bleeding episodes. Laboratory data showed sodium 127, potassium 3.2, chloride 91, bicarb 23, BUN 23 and creatinine 0.57 Patient has been afebrile. No nausea vomiting or abdominal pain. Tolerating oral diet. No diarrhea. No chest pain. 12/14/2020 Patient continues to be closely monitored in the ICU Patient is currently maintained on 10 L high flow via nasal cannula and tolerating well. Patient continues to have some abdominal discomfort stating she has not had a bowel movement although felt as if she had to. Patient is passing gas. Patient is up to the bedside commode. Patient was given a dose of lactulose and will continue with as needed. Platelets today are 28 and awaiting to receive immunoglobulin transfusion. Hemoglobin is 10.3. Multiple medical consultations following. Patient is tolerating diet with no reports of nausea or vomiting noted although is very selective as she has a milk ALLERGY. Diet modifications being adjusted. Sodium continues to be low at 127 and potassium is 3.4 and being replaced today. Creatinine is 0.49. 12/15/2020 Patient evaluated this morning and continues to be in the ICU although awaiting a transfer to [facility]. Is currently maintained on 8 L high flow and tolerating well. Oxygen saturation is 90%. Patient's potassium was found to be 3.3 this morning and replaced and is currently 4.5. Sodium improved at 133. Creatinine is 0.63. Hemoglobin remained stable at 9.5 and platelets on the trend upwards at 47. She is status post IVIG infusion. Patient continues to have extreme mouth pain and discomfort although states the cool solution and nystatin is helping. Patient is up to the bathroom and will be having indwelling Murphy catheter removed. Patient denies any bowel movement at this time. 12/16/2020 Patient was transferred to medical floor yesterday. Currently patient is 6 L oxygen via nasal cannula. Inflammatory markers are trending down. Platelet count did improve. Patient has been continued steroids and titrate down to prednisone 10 mg daily. Patient received IV immunoglobulin for ITP. No other acute overnight issues. Patient able to tolerate oral diet. Continue Diflucan for possible oropharyngeal candidiasis. Chest x-ray showed stable pulmonary infiltrates. Pulmonary is on board. Patient has been afebrile. No chest pain. No headache or dizziness lightheadedness. Awake alert oriented x3. 12/17/2020 Patient is currently sitting on side of the bed. Denies any complaints of fever or chills. Shortness of breath is improving. Patient is less dyspneic and currently requiring 6 L high flow oxygen via nasal cannula. Chest x-ray showed somewhat worsening bilateral diffuse airspace disease. Otherwise patient denied any swallowing difficulty. No complaints of chest pain or shortness of. COVID-19 PCR came back negative. Currently antibiotics of ceftriaxone and prednisone 10 mg daily and breathing t reatments. Pulmonary is on board. 12/18/2020 Patient is seen this morning currently continued on 6 L of oxygen via nasal cannula and tolerating well. Multiple medical consultations following including hematology. Platelets continue to trend up in our currently 83 and hemoglobin is 9.9. Patient continues to have mild discomfort although states is slightly improved with the cool solution and will continue. Patient was having some issues with retaining urine after indwelling Murphy catheter was removed and one was replaced. Patient continues to deny any bowel movement and requesting an enema. Instructed and encouraged the patient to continue with incentive spirometer and increasing activity and continuing with oral intake encouragement. Discussed with nursing staff about continuing to wean FiO2 as tolerated. Review of systems: Constitutional: Reports fatigue, no reports of fever, or chills Cardiovascular: No reports of chest pain or palpitations Respiratory: No reports of worsening shortness of breath, reports continued hoarse voice GI: No reports of nausea, vomiting, or diarrhea : Reports retention resolved after indwelling Murphy catheter reinitiation, reports some dysuria Neurovascular: reports weakness All inpatient medications were reviewed and appropriate changes in these medications as dictated in the interval history and assessment and plan. Objective - Vital Signs Vital signs: Vital Signs Temp 98.5 F 12/18/20 08:00 Pulse 112 H 12/18/20 08:00 Resp 20 12/18/20 08:00 BP 108/70 12/18/20 08:00 Pulse Ox 92 L 02/15/21 08:00 Intake & Output 12/17/20 12/18/20 12/18/20 18:59 06:59 18:59 Intake Total 500 Output Total 1600 600 Balance -1600 -100 Weight 76.6 kg Intake: Oral 500 Output: Urine 1600 600 Straight 1000 Uretheral (Murphy) 600 Other: Voiding Method Toilet Indwelling Catheter Bedside Commode - Exam GENERAL: The patient is alert and oriented x3, not in any acute distress. Well developed, well nourished. HEENT: Pupils are round and equally reacting to light. EOMI. No scleral icterus. No conjunctival pallor. Normocephalic, atraumatic. No pharyngeal erythema. No thyromegaly. high flow nasal cannula noted and weaning as tolerated currently 6 L CARDIOVASCULAR: S1 and S2 present. No murmurs, rubs, or gallops. PULMONARY: Diffuse bilateral rhonchi without any significant wheezing fairly good air entry into bilateral lung ruiz ABDOMEN: Soft, nontender, nondistended, normoactive bowel sounds. No palpable organomegaly. MUSCULOSKELETAL: No joint swelling or deformity. EXTREMITIES: No cyanosis, clubbing, patient does have some pedal edema, left m ore so than the right although improved NEUROLOGICAL: Gross neurological examination did not reveal any focal deficits. - Labs CBC & Chem 7: 12/17/20 06:37 12/15/20 13:04 Labs: Abnormal Lab Results - Last 24 Hours (Table) 12/17/20 12/17/20 12/17/20 Range/Units 06:37 17:12 20:24 RBC 3.41 L (4.10-5.20) X 10*6/uL Hgb 9.9 L (12.0-15.0) g/dL Hct 32.2 L (37.2-46.3) % MCHC 30.7 L (32.0-37.0) g/dL RDW 17.2 H (11.5-14.5) % Plt Count 83 L (140-440) X 10*3/uL Plt Count Comment A Lymphocytes # 0.65 L (0.90-5.00) X 10*3/uL Eosinophils # 0.37 H (0.04-0.35) X 10*3/uL POC Glucose (mg/dL) 108 H 143 H (75-99) mg/dL 12/18/20 Range/Units 11:47 RBC (4.10-5.20) X 10*6/uL Hgb (12.0-15.0) g/dL Hct (37.2-46.3) % MCHC (32.0-37.0) g/dL RDW (11.5-14.5) % Plt Count (140-440) X 10*3/uL Plt Count Comment Lymphocytes # (0.90-5.00) X 10*3/uL Eosinophils # (0.04-0.35) X 10*3/uL POC Glucose (mg/dL) 137 H (75-99) mg/dL Microbiology - Last 24 Hours (Table) 12/17/20 08:00 Urine Culture - Preliminary Urine,Clean Catch Assessment and Plan Assessment: -Acute severe hypoxic respiratory failure Secondary to Covid 19 pneumonia: Initially Requiring BiPAP. Has completed the Remdesivir and has received convalescent plasma. currently maintained on oral prednisone and being titrated down. Prednisone now at 10 mg daily -Possible acute urinary tract infection due to indwelling Murphy catheter, initiated on ceftriaxone and awaiting urine cultures -Severe thrombocytopenia possible drug-induced and also related to oral infection, improving -Chronic persistent asthma mild acute exacerbation secondary to Covid 19. Continued on oral steroids and Symbicort and breathing treatments. -Hyperlipidemia -Hypothyroidism -hypokalemia, improved -History of gout. Not in exacerbation. Colchicine has been discontinued due to severe thrombocytopenia. -Peripheral edema: Due to probably chronic venous stasis -Hiatal hernia with gastroesophageal reflux disease patient was resumed on Prilosec -GI prophylaxis -DVT prophylaxis. early ambulation -full code Plan: Patient will be continued on current oxygen via nasal cannula and titrate down FiO2 as tolerated. Currently on 6L high flow. continue with incentive spirometer. Continued on oral steroids and breathing treatments as needed. Prednisone titrating down. Patient is status post IVIG. Platelets are trending up at 83 today. Hematology following. Encourage oral intake. Multiple medical consultations following. Continue to encourage increasing activity as tolerated. Patient currently maintained on IV ceftriaxone for possible urinary tract infection and will await cultures. Patient had some retention and indwelling Murphy catheter was replaced. Patient also continues to have some constipation and states has not had a bowel movement in over 10 days and requesting an enema.
--- NOTE | 2020-12-18 13:52 | P.PN ---
Subjective Progress Note Date: 12/18/20 Principal diagnosis: 60-year-old here patient hospitalized for COVID 19 related pneumonia and hypoxemia. The patient was found to have a low oxygen saturation. She was diagnosed having COVID 19 on 11/20/2020. However, her symptoms started approximately a week prior to that as the patient started having generalized weakness, fever and chills. In the hospital at [place], she was found to be hypoxic and she was placed on 15 L of oxygen by nasal cannula. She was started on Decadron and following that she was transferred to [facility] on 11/20/2020 for further evaluation. On today's evaluation the patient remains on 15 L of oxygen by nasal cannula. Laboratory markers show a LDH of 1482, her CRP is 239, her pro-calcitonin level is at 1.28, her white cell count is at 4.5 and the patient has a lymphopenia with a lymphocyte count of 0.7. The electrolytes all within normal limits. Renal function is within normal limits. Glucose slightly elevated at 235. The chest x-ray is showing bilateral pulmonary infiltrates mainly involving the left lung and or significantly in the right upper lobe area. The patient is known to have COPD/asthma. The patient is also has history of hypothyroidism, hyperlipidemia and gout. She has history of hiatal hernia.. She is on Decadron 6 mg by mouth daily. She is on no DVT prophylaxis is receiving 40 mg of Lovenox her d-dimer level is at 0.36. On 11/22/2020 patient seen in follow-up in intensive care unit. She is awake and alert, oriented 3, she is currently on BiPAP support with pressures of 14/5 and FiO2 of 100%, and her SpO2 is a 99%. Patient states she doesn't feel significantly more short of breath, however she tachypneic with a respiratory rate of 28 BPM, she has been febrile T-max of 10 1F, her pro-calcitonin came back elevated at 1.28 suggesting possibility of bacterial infection. Today we started her on Remdesivir, today's date to off treatment, her inflammatory markers are trending up, LDH is up to 1940, CRP is 143.6, d-dimer is 0.78, and is on prophylactic dose of Lovenox 40 mg daily, electrolytes and renal profile are unremarkable. O'Christiano is 9.2, hemoglobin is 11, platelet count is 322, neutrophils is 8.3, and in lymphocyte count is 0.5. Patient is on day 2 of high-dose IV steroids 20 mg daily. Patient is awake and alert, oriented 3, yesterday she reversed her CODE STATUS, from DO NOT RESUSCITATE to full code. On 11/23/2020 patient seen in follow-up in the intensive care unit, she remains on BiPAP support, has been very much dependent on it, and he desaturates rapidly even for short periods when the BiPAP mask is removed to give the patient oral medications, current BiPAP settings of 14/60 and FiO2 of 100%, her pulse ox is 93%. Awake and alert, she is oriented 3, she states her breathing is stable as long as she does not move and lays very still in bed. She is complaining of a dry cough, no chest discomfort, no palpitations. She is in sinus mechanism, bradycardic with a rate of 55 BPM, blood pressure is 116/66, not on any vasopressor support, her current IV fluids are 0.9 normal saline at a rate of 20 ML per hour. Patient's pattern has improved, T-max in last 24 hours 99.5F. Urinalysis was sent and shows no signs of infection, blood cultures will be sent today, last pro calcitonin yesterday was 1.29, repeat pro calcitonin has been sent and pending at this time, patient was empirically placed on azithromycin and Rocephin. Maintenance on high-dose IV steroids currently with Decadron 20 mg IV on the daily basis. Absent been reviewed, her d-dimer has trended up, and is at 5.13 today, her Lovenox dose will be adjusted 0.5 mg/kg of body weight twice daily, LDH is down slightly, 1670, CRP is relatively stable at 140.5. Electronic are within normal limits, patient is mildly prerenal, BUN is 30 creatinine 0.74, she also remains on oral dose of Lasix and she has had very limited oral intake. She has only been able to take one or 2 sips of oral liquids and she states things do not taste right. White blood cell count is 6.5, hemoglobin is 10.5. His chest x-ray has been reviewed and diffuse increasing groundglass opacities. I discussed the patient's CODE STATUS with her, and she is agreeable to CPR, intubation, defibrillation, CODE STATUS will be changed to full code On 12/04/2020 patient seen in follow-up in the intensive care unit, she is off the BiPAP support, and currently on high flow oxygen per Airvo 60 L/m and FiO2 of 70%, with a pulse ox between 92-94%, she is breathing comfortably, denies any chest discomfort, she sitting up in a chair, she looks comfortable, she has had no fever or chills. Today's chest x-ray shows coarse infiltrates bilaterally with slight interval progression. Patient is tolerating oral diet. She is off the TPN. She is on 0.9 normal saline at a rate of 10 ML per hour, today's labs have been reviewed, d-dimer is improved from a few days back and is down to 6.70, patient is on Lovenox 40 mg twice a day, white blood cell count is 9.1, hemoglobin is 10.8, sodium is 134, potassium is 4.4, chloride is 96, CO2 is 34, B1 is 20, creatinine 0.64 LDH is 1660, CRP is less than 5. Patient remains on daily dose of IV Lasix, colchicine, Pepcid 20 mg twice a day, bronchodilators, IV Solu-Medrol 40 mg every 8 hours On 12/05/2020 patient is seen in follow-up in the intensive care unit, she ashwin ins on high flow oxygen per Airvo at 60 L/m and FiO2 of 75%, in the night her FiO2 have to be bumped up a little bit from a 70% because of an episode of desaturation. She also required 4 hours on BiPAP support. However this morning patient appears to be calm and comfortable, sitting up in the recliner, in her pulse ox on the Airvo at previously mentioned settings is 98-100%, she is breathing comfortaby. Patient is awake and alert, oriented 3, no altered mentation, she is in sinus mechanism, she is on 0.9 at 10 ML per hour, no other drips, she's been afebrile, vital signs have been stable. Chest x-ray has been reviewed, and it shows patchy perihilar and basilar infiltrates persistence wi thout significant change. She remains on once daily dose of Lasix, and she is in -1090 mL fluid balance over the last 24 hours. She has been tolerating oral intake, no nausea vomiting or abdominal pain. Currently patient remains on IV steroids with Solu-Medrol 40 mg every 8 hours, colchicine, vitamin C D and zinc, melatonin, and bronchodilators. Today's d-dimer is 7.58. And patient remains on Lovenox at 40 mg twice daily which is 0.5 mg/kg of body weight twice daily. Patient also continues on Zosyn for empiric antibiotic coverage. Blood cultures have shown no growth. Follow-up LDH is trending down on today's labs and is down to 1370, CRP is less than 5. On 12/06/2020 patient seen in follow-up in intensive care unit, patient remains on Airvo at 60L and Fio2 75%. Satting between 88-91%, did require BiPap support last night for a few hours, currently back on Airvo. Patient is breathing comfortably, no acute distress, no chest discomfort. No fever, or chills. Patient is currently on 0.9 NS at 10 ml/hr. patient remains on Lasix, she is in -1.8 L fluid balance over the last 24 hours, however her chest x-ray shows worsening airspace disease, and pulmonary edema. Blood pressure has been stable, today's labs have been reviewed, showing serum sodium of 135, potassium is 4.3, chloride is 97, CO2 is 24, B1 is 24, creatinine 0.64. Proalcitonin level came back negative, we can stop the Zosyn cultures are negative. No fever or chills. No nausea vomiting diarrhea. On 12/07/2020 patient seen in follow-up in intensive care unit, she remains on high flow oxygen per Airvo at 60 L, and FiO2 of 70%, and her pulse ox is 90-91%, looks fairly comfortable, she is sitting up on the edge of the bed, appears to be in no acute distress, she is getting ready to eat breakfast this morning, she has been afebrile, vital signs have been stable. her chest x-ray today showed diffuse increased lung markings more focal in the right lower lobe, patient has received increased dose of Lasix, and her chest x-ray shows better aeration compared to yesterday's exam.today's labs have been reviewed, her d-dimer is trending down, down to 5.40, white count is 10.2, hemoglobin is 11.4, sodium is 134, potassium is 3.3, chloride 96, CO2 is 23, BUN is 26 creatinine 0.64. LDH is 1300, CRP is less than 5, blood culture has shown no growth. On 12/13/2020 patient seen in follow-up in intensive care unit, she is currently down to 15 L per simple high flow nasal cannula, pulse ox is 92-93%, hemodyna mics she stable, she is afebrile. There is a bit fatigued, but no acute distress, lung sounds revealed coarse inspiratory crackles over right lower lobe, relatively clear in the left lung. Does have a congested loose cough, no wheezing, she is on albuterol and Symbicort as, she remains on oral prednisone 40 mg once daily, but can further cut back to 20 mg daily. 0.9 normal saline at a rate of 20 ML per hour, labs reviewed, showing blood cell count of 10.9, hemoglobin is 10.8, platelet count is 8, patient so far transfused 2 units of platelets, no signs of bleeding, serum sodium is down to 127, patient had been on IV diuretics, which we will place on hold, potassium 3.2, chloride is 91, CO2 33, B1 is 23 creatinine 0.57, patient is tolerating oral intake, no nausea vomiting or diarrhea, we'll give the patient is small fluid bolus. And has developed significant ulceration and thrush in her oral cavity and tongue. Receiving Cheo's solution, and nystatin swish and swallow, we will add Diflucan for oral candidiasis as well. She is breathing comfortably, she appears fatigued, but she is in good spirits. On 12/18/2000 patient seen in follow-up on medical floor, she is currently down to 6 L, her pulse ox is between 92-94%, she is awake and alert, in no acute distress, is weak, but breathing comfortably, she states overall she is feeling better, no fever or chills. The count is improving, up to 83,000 today, no bleeding. Last chest x-ray on 12/16/2020 showed worsening bilateral diffuse airspace disease and low lung volumes. Patient is working on incentive spirometer. Her recheck for coronavirus PCR was negative, urinalysis showed signs of urinary tract infection for which patient was started on Rocephin, urine culture has been sent and is pending at this time. No new labs today, LDH is 335, CRP is less than 0.4. Prednisone is down to 10 mg daily Objective - Vital Signs Vital signs: Vital Signs Temp 98.5 F 12/18/20 08:00 Pulse 112 H 12/18/20 08:00 Resp 19 12/18/20 08:00 BP 108/70 12/18/20 08:00 Pulse Ox 92 L 12/18/20 08:00 Intake & Output 12/17/20 12/18/20 12/18/20 18:59 06:59 18:59 Intake Total 500 Output Total 1600 600 Balance -1600 -100 Weight 76.6 kg Intake: Oral 500 Output: Urine 1600 600 Straight 1000 Uretheral (Murphy) 600 Other: Voiding Method Toilet Indwelling Catheter Indwelling Catheter Bedside Commode - Exam GENERAL EXAM: Alert, pleasant, 60-year-old white female on 6 L of oxygen per simple high flow nasal cannula 91% comfortable in no apparent distress. HEAD: Normocephalic/atraumatic. EYES: Normal reaction of pupils, equal size. Conjunctiva pink, sclera white. NOSE: Clear with pink turbinates. THROAT: No erythema or exudates. NECK: No masses, no JVD, no thyroid enlargement, no adenopathy. CHEST: No chest wall deformity. Symmetrical expansion. LUNGS: Equal air entry with diffuse crackles right lower lobe, clear left lung CVS: Regular rate and rhythm, normal S1 and S2, no gallops, no murmurs, no rubs ABDOMEN: Soft, nontender. No hepatosplenomegaly, normal bowel sounds, no guarding or rigidity. EXTREMITIES: No clubbing, no edema, no cyanosis, 2+ pulses and upper and lower extremities. MUSCULOSKELETAL: Muscle strength and tone normal. SPINE: No scoliosis or deformity SKIN: No rashes CENTRAL NERVOUS SYSTEM: Alert and oriented -3. No focal deficits, tone is normal in all 4 extremities. PSYCHIATRIC: Alert and oriented -3. Appropriate affect. Intact judgment and insight. - Labs CBC & Chem 7: 12/17/20 06:37 12/15/20 13:04 Labs: Abnormal Lab Results - Last 24 Hours (Table) 12/17/20 12/17/20 12/18/20 Range/Units 17:12 20:24 11:47 POC Glucose (mg/dL) 108 H 143 H 137 H (75-99) mg/dL Microbiology - Last 24 Hours (Table) 12/17/20 08:00 Urine Culture - Preliminary Urine,Clean Catch Assessment and Plan Plan: Assessment: #1. acute Covid 19 related pneumonia with bilateral pulmonary infiltrates most significant in the right upper lobe and the left lung seems to be diffusely infiltrated #2. acute severe hypoxic respiratory failure, worsening over last 24 hours, patient on FiO2 100%, and BiPAP support, the evidence of worsening inflammatory markers and worsening oxygenation. She received Remdesivir treatment on 11/21/2020, and high-dose IV Decadron on 11/21/2020, vision received 2 doses of Tocilizumab. Patient had rapid worsening of oxygenation and was transferred to the intensive care unit on 11/21/2020. Currently requiring BiPAP support with pressures of 14/5 and FiO2 100% On 11/23/2020 is on BiPAP support with FiO2 of 100%, and very much dependent on BiPAP support. On 12/04/2020 patient is on Airvo at 60 L in and FiO2 of 70% with pulse ox of 94% On 12/13/2020 patient is off the Airvo and is on simple high flow nasal cannula at 15 L/m On 12/18/2020 patient is down to 6 L of oxygen pulse ox is 92-94%, is on medical surgical floor, doing well #3. Thrombocytopenia, probably drug induced could be related to colchicine although the possibility of other drugs or even consumptive thrombocytopenia related to viral infection or even HIT note that the heparin-induced thrombocytopenia antibodies came back negative and the patient received platelets, and today on 12/13/2020 her platelet count is still 8 and patient will receive another unit of platelets. Coagulation profile is within normal limits. No signs of any DIC. All of the medications that can potentially cause thrombocytopenia has been discontinued including colchicine, Pepcid and the patient is currently not receiving any anticoagulants. #4. Increased pro-calcitonin rule out possibility of bacterial infection, we'll cover the patient with azithromycin and Rocephin, we'll send urinalysis with cultures, we'll send a Legionella urine antigen and mycoplasma IgM and IgG, both mycoplasma titers were low, Legionella urine antigen was negative, blood cultures have shown no growth. #5. chronic persistent bronchial asthma with an FEV1 of 82-87% on outpatient basis maintained on Symbicort #6. steroid-induced hyperglycemia #7. hypertension #8. hypothyroidism #9. Osteoarthritis and gout #10. Peripheral neuropathy involving lower extremities #11. Peripheral vascular disease #12. Chronic normocytic anemia #13. More than [id number] smoking history patient is currently an ex-smoker hiatal hernia with reflux #14. Hyponatremia related to diuretic therapy, improving, and diuretics are on hold, patient is on oral Plan: Continue weaning FiO2, continue encouraging deep breathing and coughing, incentive spirometer use, follow-up chest x-ray tomorrow, signs have been stable, continue prednisone 10 mg daily, bronchodilators. Platelet count is improving, anticoagulation remains on hold. Physical therapy consultation, increase activity as tolerated I performed a history & physical examination of the patient and discussed their management with my nurse practitioner, Cate Madsen. I reviewed the nurse practitioner's note and agree with the documented findings and plan of care. Lung sounds are positive for diffuse crackles throughout the lung ruiz. The findings and the impression was discussed with the patient. I attest to the documentation by the nurse practitioner. Time with Patient: Less than 30
[2020-12-18 14:58] LABS: Basophils # (A) 0.01 X 10*3/uL (0.00-0.10); Basophils % (A) 0.1 %; Eosinophils # (A) 0.42 X 10*3/uL (0.04-0.35); Eosinophils % (A) 4.4 %; HCT 36.2 % (37.2-46.3); HGB 10.9 g/dL (12.0-15.0); Lymphocytes # (A) 1.03 X 10*3/uL (0.90-5.00); Lymphocytes % (A) 10.8 %; MCH 28.4 pg (27.0-32.0); MCHC 30.1 g/dL (32.0-37.0); MCV 94.3 fL (80.0-97.0); Mean Platelet Volume 10.9 fL (9.5-12.2); Monocytes # (A) 0.87 X 10*3/uL (0.20-1.00); Monocytes % (A) 9.1 %; Neutrophils # (A) 7.15 X 10*3/uL (1.80-7.70); Neutrophils % (A) 74.7 %; Platelet Count 137 X 10*3/uL (140-440); RBC 3.84 X 10*6/uL (4.10-5.20); RDW 17.5 % (11.5-14.5); WBC 9.57 X 10*3/uL (4.50-10.00)
[2020-12-18] MEDS ORDERED: NA PHOS,M-B/NA PHOS,DI-BA 133 ML ENEMA RECTAL ONE (15:28)
[2020-12-18 17:18] LABS: Glucose,Whole Blood 94 mg/dL (75-99)
[2020-12-18 20:04] LABS: Glucose,Whole Blood 109 mg/dL (75-99)
[2020-12-18] MEDS: GABAPENTIN 300 MG CAP PO SCH (22:01)
[2020-12-18] MEDS: ATORVASTATIN 40 MG TAB PO SCH (22:01)
[2020-12-18] MEDS: MELATONIN 3 MG TABLET PO SCH (22:01)
[2020-12-18] MEDS: MONTELUKAST 10 MG TAB PO SCH (22:01)
[2020-12-18] MEDS: PRAMIPEXOLE 0.5 MG TAB PO SCH (22:08)
[2020-12-18] MEDS: THEOPHYLLINE 24 HOUR 300 MG CAP.ER.24H PO SCH (22:08)
[2020-12-19] MEDS: SALT AND SODA MOUTHWASH 1,000 ML PO SCH ×5 (00:13→20:00)
[2020-12-19] MEDS: LEVOTHYROXINE 75 MCG TAB PO SCH (05:48)
[2020-12-19 07:29] LABS: Glucose,Whole Blood 83 mg/dL (75-99)
--- NOTE | 2020-12-19 07:49 | XR ---
EXAMINATION TYPE: XR chest 1V portable DATE OF EXAM: 12/19/2020 COMPARISON: 12/16/2020 INDICATION: Covid 19 short of breath TECHNIQUE: Single frontal view of the chest is obtained. There is poor inspiration. FINDINGS: The heart size is upper limits of normal. The pulmonary vasculature is prominent. Diffuse increased lung markings are present. This appears slightly improved over the interval. This i s greatest in the left upper lobe. IMPRESSION: 1. Improvement of a diffuse bilateral lung infiltrate.
[2020-12-19] MEDS: ALBUTEROL HFA INHALER INHALATION SCH ×4 (09:06→20:36)
[2020-12-19] MEDS: SYMBICORT 160-4.5 MCG INHALER INHALATION SCH ×2 (09:06→20:36)
[2020-12-19] MEDS: TIOTROPIUM 2.5 MCG INHALER INHALATION SCH (09:06)
[2020-12-19] MEDS: LACTULOSE 20 GM/30 ML CUP PO PRN (09:54)
[2020-12-19] MEDS: FLUCONAZOLE IN NACL,ISO-OSM 100 MG in SALINE 1 50ML.BAG IVPB SCH (09:54)
[2020-12-19] MEDS: SUCRALFATE 1 GM TAB PO SCH ×4 (09:55→20:04)
[2020-12-19] MEDS: predniSONE 10 MG TAB PO SCH (09:55)
[2020-12-19] MEDS: ASCORBIC ACID 500 MG TAB PO SCH (09:55)
[2020-12-19] MEDS: SODIUM CHLORIDE TAB 1 GM TAB PO SCH ×3 (09:55→20:00)
[2020-12-19] MEDS: ZINC SULFATE 220 MG CAP PO SCH (09:56)
[2020-12-19] MEDS: THEOPHYLLINE 24 HOUR 300 MG CAP.ER.24H PO SCH (09:56)
[2020-12-19] MEDS: MAG HYDROX/AL HYDROX/SIMETH 30 ML, LIDOCAINE VISCOUS 30 ML, diphenhydrAMINE ELIXIR 75 M... PO SCH ×12 (09:56→20:01)
[2020-12-19] MEDS: GABAPENTIN 100 MG CAP PO SCH ×2 (09:56→14:08)
[2020-12-19] MEDS: INSULIN ASPART (NovoLOG) 100 UNIT/ML VIAL SQ SCH ×4 (09:57→22:18)
[2020-12-19] MEDS ORDERED: NA PHOS,M-B/NA PHOS,DI-BA 133 ML ENEMA RECTAL ONE (10:00)
[2020-12-19 11:47] LABS: Glucose,Whole Blood 102 mg/dL (75-99)
[2020-12-19 11:58] LABS: Basophils # (A) 0.01 X 10*3/uL (0.00-0.10); Basophils % (A) 0.2 %; Eosinophils # (A) 0.28 X 10*3/uL (0.04-0.35); Eosinophils % (A) 4.5 %; HCT 28.8 % (37.2-46.3); HGB 8.9 g/dL (12.0-15.0); Lymphocytes # (A) 0.82 X 10*3/uL (0.90-5.00); Lymphocytes % (A) 13.1 %; MCH 29.3 pg (27.0-32.0); MCHC 30.9 g/dL (32.0-37.0); MCV 94.7 fL (80.0-97.0); Mean Platelet Volume 10.8 fL (9.5-12.2); Monocytes # (A) 0.48 X 10*3/uL (0.20-1.00); Monocytes % (A) 7.7 %; Neutrophils # (A) 4.62 X 10*3/uL (1.80-7.70); Neutrophils % (A) 73.9 %; Platelet Count 118 X 10*3/uL (140-440); RBC 3.04 X 10*6/uL (4.10-5.20); RDW 17.2 % (11.5-14.5); WBC 6.25 X 10*3/uL (4.50-10.00)
[2020-12-19 12:10] LABS: African American GFR (CKD) 132.1 (60.0-200.0); Anion Gap 3.8 mmol/L (4.00-12.00); BUN/Creat Ratio 22.5 Ratio (12.00-20.00); Calcium 8.3 mg/dL (8.7-10.3); Carbon Dioxide 29.2 mmol/L (21.6-31.8); Potassium 3.9 mmol/L (3.5-5.5)
--- NOTE | 2020-12-19 14:26 | P.PN ---
Subjective Progress Note Date: 12/19/20 Acute hypoxic respiratory failure: Secondary to Covid 19 pneumonia 60-year-old female came in with complaints of shortness of breath found to have very low oxygen saturations patient was diagnosed with Covid 19 about 3 days ago patient had having symptoms for about a week. Patient was also company of fever chills patient has low-grade fever here. Patient was seen in [facility] subsequently transferred here patient is presently on 15 L of oxygen. Patient does have history of COPD. Patient was started on Decadron. Pulmonary was consulted. She was complaining of for cough without any significant sputum production. 11/21/2020 Patient doesn't feel any better patient remains on 15 L of oxygen along with Ventimask. Breasts will be replaced patient has highly elevated inflammatory markers although d-dimer is 0.36 pulmonology will evaluate the patient to evaluate for the need for Remdesivir. 11/22/2020 Patient is currently in MICU. Awake alert and oriented x3. On BiPAP with FiO2 100% saturating at 99%. Patient is still short of breath with tachypnea.. Patient was febrile with T-max 101 Laboratory test showed D-dimer level 0.78, ferritin 1436.9, LDH 1940 and CRP 143.6 and CK 589. UA negative for infection. Procalcitonin level is 1.28. Patient is being treated with remdesivir, dexamethasone and Lovenox. On antibiotics of ceftriaxone and azithromycin. Pulmonary is following. Chest x-ray showed slight worsening of patchy infiltrates bilaterally. Findings can be compatible with atypical pneumonia. 11/23/2020 Patient is currently in the MICU. Awake alert and oriented. On BiPAP support. Denied any chest pain. Cough and shortness of breath. Mainly dry cough. Afebrile. Patient is being continued dexamethasone 6 mg daily and remdesivir course. On anticoagulation. Chest x-ray showed diffuse increasing groundglass opacities. Correlate for pulmonary edema and ARDS. Atypical pneumonia is within differential. Patient was also started ceftriaxone and azithromycin for possible bacterial pneumonia underlying with elevated procalcitonin level. Pulmonary is on board.60-year-old female came in with compensative shortness of breath found to have very low oxygen saturations patient was diagnosed with Covid 19 about 3 days ago patient had having symptoms for about a week. Patient was also company of fever chills patient has low-grade fever here. Patient was seen in [facility] subsequently transferred here patient is presently on 15 L of oxygen. Patient does have history of COPD. Patient was started on Decadron. Pulmonary was consulted. She was complaining of for cough without any significant sputum production. 11/24/2020 patient is seen for a follow-up. The patient is currently still on a BiPAP with an FiO2 of 100%; feeling slightly better; remains afebrile. The chest x-ray remains unchanged and the patient continues to have diffuse but the pulmonary infiltrates consistent with code 19 related pneumonia. Her inflammatory markers are quite abnormal. At LDH from today was 1006 and 41, and her CRP was 59. Note that the CRP level was slightly lower. The pro-calcitonin level from yesterday was 0.18. CPKs nonelevated and a triglyceride level is at 154. The patient has a d-dimer of 14.8. She remains on Lovenox at a dose of 40 mg subcu every 12 hours which is in the order of 0.5 mg per KG every 12 hours. In terms of treatment, the patient remains on Decadron 20 mg IV on the daily basis and she is on Remdesivir and she also received 2 doses of Actemra 400 mg IV. Her oral intake was noted to be quite low as the patient is unable to get herself off the BiPAP for oral intake. Based on that, the patient will be given a PICC line today and she'll be started on TPN for nutritional support to maintain her nutritional status. No fever. No chills. Hemodynamically stable. No other issues for now. Her CODE STATUS is full code. 11/25/2020 patient is seen and evaluated in room for a follow-up; patient became hypoxic again and she had to be placed back on an FiO2 of 100% with a BiPAP pressure of 14/6 cm of water. Her current respiratory rate is in the order of 22-30 breaths per minute. The patient is comfortable. She is tolerating the treatment well. Laboratory review shows d-dimer is up to 30.01. Rest of the inflammatory markers show an LDH level of 1862 and the CRP is down to 40.8. Pro-calcitonin level was at 0.18. patient has received Lovenox at a dose of 40 mg subcu every 12 hours which is in the order of 0.5 mg per KG every 12 hours. In terms of treatment, the patient remains on Decadron 20 mg IV on the daily basis they #4 and she is on Remdesivir #5 and she also received 2 doses of Actemra 400 mg IV. Meanwhile be also inserted a PICC line in the left upper extremity and the patient was started on TPN for nutritional support. No altered mentation pH is resting comfortably in bed. Is slightly higher since the patient was started on TPN and septal 187 and the will going to put this patient on sliding scale blood sugar coverage. 11/26/2020 Patient remains in ICU and remains awake and alert; currently on BiPAP; FiO2 was weaned down to 70% with stable O2 saturation; patient remains on high-dose Decadron in form of 20 mg IV daily; inflammatory markers slowly trending down including CRP of 22, LDH of 1776, d-dimer 23.4 Patient is currently on TPN for nutrition at a rate of 45 hoursalong with blood glucose monitoring every 4 hours with insulin sliding scale; remains stable on IV fluids at 50 mL per hour Patient is being followed by pulmonology service and recommended to continue with Lovenox 40 mg subcu every 12 hours, Decadron 20 mg IV daily along with completing REM treatment; patient has received 2 doses of Actemra 400 mg IV 12/08/2020 patient is seen in follow-up in the intensive care unit. She is awake and alert. She is still requiring AirVo high flow oxygen at 60 L/m and 70% FiO2 to maintain O2 saturations in the 90s. No current IV fluids. She is receiving her second unit of convalescent plasma. Chest x-ray continues to show bilateral patchy perihilar and basilar infiltrates. Not much improvement. White count 9.9. Hemoglobin 11.7. Platelet count 63,000. D-dimer 3.60. Sodium 133. Potassium 3.3. Bicarb 36. Creatinine 0.63. AST 24. ALT 46. LDH 1101. C- reactive protein less than 5.0. She remains on IV Solu-Medrol, bronchodilators, Lovenox, colchicine, Pepcid, vitamin supplements. She's also been diuresed with Lasix 40 mg IV every 12 hours. plan is to continue the treatment as indicated above; titrate down FiO2 as tolerated; continue with incentive spirometry 12/09/2020 Patient is seen and evaluated in follow-up in the intensive care unit. She is currently sitting up in a chair at the bedside. Awake and alert in no acute distress. Continues to require AirVo high flow oxygen at 60 L/m at 66% FiO2. She is able to tolerate a bit more activity without significant desaturations. The amount of time that it takes for her to recover is getting less. Improving in that regard. Chest x-ray still revealing bilateral scattered infiltrates. Currently no IV fluids running. Appetite is improving. White count 10.7. Hemoglobin 11.7. Platelet count dropped to 35,000. Lymphocytes 0.3. D-dimer 3.3. Sodium 132. Potassium 3.9. Creatinine 0.63. Bicarb 32. LDH 1080. C- reactive protein less than 5. She remains on IV Solu-Medrol, bronchodilators, Lovenox, colchicine, Pepcid, vitamin supplements. Diuresed with Lasix 40 mg IV every 12 hours. She remains a negative balance. Continue the current treatment plan; Titrate down the FiO2 as tolerated; Continue incentive spirometry; Increase activity as tolerated 12/10/2020 Patient is seen and evaluated in follow-up in the intensive care unit; resting comfortably in bed. She remains awake and alert in no acute distress; oxygen requirements continued to improve slowly. She is on the AirVo at 55 L/m and 55% FiO2. No IV fluids. She remains on IV Solu-Medrol, bronchodilators, colchicine, Pepcid, vitamin supplements, IV diuretics. She remains a negative balance. Intensive care service is following and recommending to continue to monitor in ICU 12/11/2020 Patient is currently in the MICU. On Airvo at 15 L and FiO2 of 50%. Currently sitting in the chair and awake alert and oriented. Tolerating oral diet. Next and patient is being continued on IV Solu-Medrol. Patient is having severe thrombocytopenia with platelet count 9000 today. Other laboratory data showed sodium 131 potassium 3.6) 91 BUN 31 and creatinine 0.59 Patient was started on 40 mg of IV Lasix daily. 12/12/2020 Patient is currently in MICU. Sitting in a chair comfortably. Requiring high flow oxygen at 15 L and FiO2 45%. Chest x-ray showed diffuse bilateral p ulmonary infiltrates without any significant change. Breathing status is slightly better. Platelet count is at 6000 today. Patient is being continued on Solu-Medrol 40 mg IV every 8 hours. Patient is getting another platelet transfusion today. Inflammatory markers are trending down. Pulmonary and oncology is on board. 12/13/2020 Patient is in the MICU and oxygen requirement slightly lower than yesterday currently on high flow oxygen via nasal cannula. Breathing status is stable but still having exertional dyspnea. Platelet count is 8 came today. No complains of bruising or bleeding episodes. Laboratory data showed sodium 127, potassium 3.2, chloride 91, bicarb 23, BUN 23 and creatinine 0.57 Patient has been afebrile. No nausea vomiting or abdominal pain. Tolerating oral diet. No diarrhea. No chest pain. 12/14/2020 Patient continues to be closely monitored in the ICU Patient is currently maintained on 10 L high flow via nasal cannula and tolerating well. Patient continues to have some abdominal discomfort stating she has not had a bowel movement although felt as if she had to. Patient is passing gas. Patient is up to the bedside commode. Patient was given a dose of lactulose and will continue with as needed. Platelets today are 28 and awaiting to receive immunoglobulin transfusion. Hemoglobin is 10.3. Multiple medical consultations following. Patient is tolerating diet with no reports of nausea or vomiting noted although is very selective as she has a milk ALLERGY. Diet modifications being adjusted. Sodium continues to be low at 127 and potassium is 3.4 and being replaced today. Creatinine is 0.49. 12/15/2020 Patient evaluated this morning and continues to be in the ICU although awaiting a transfer to [facility]. Is currently maintained on 8 L high flow and tolerating well. Oxygen saturation is 90%. Patient's potassium was found to be 3.3 this morning and replaced and is currently 4.5. Sodium improved at 133. Creatinine is 0.63. Hemoglobin remained stable at 9.5 and platelets on the trend upwards at 47. She is status post IVIG infusion. Patient continues to have extreme mouth pain and discomfort although states the cool solution and nystatin is helping. Patient is up to the bathroom and will be having indwelling Murphy catheter removed. Patient denies any bowel movement at this time. 12/16/2020 Patient was transferred to medical floor yesterday. Currently patient is 6 L oxygen via nasal cannula. Inflammatory markers are trending down. Platelet count did improve. Patient has been continued steroids and titrate down to prednisone 10 mg daily. Patient received IV immunoglobulin for ITP. No other acute overnight issues. Patient able to tolerate oral diet. Continue Diflucan for possible oropharyngeal candidiasis. Chest x-ray showed stable pulmonary infiltrates. Pulmonary is on board. Patient has been afebrile. No chest pain. No headache or dizziness lightheadedness. Awake alert oriented x3. 12/17/2020 Patient is currently sitting on side of the bed. Denies any complaints of fever or chills. Shortness of breath is improving. Patient is less dyspneic and currently requiring 6 L high flow oxygen via nasal cannula. Chest x-ray showed somewhat worsening bilateral diffuse airspace disease. Otherwise patient denied any swallowing difficulty. No complaints of chest pain or shortness of. COVID-19 PCR came back negative. Currently antibiotics of ceftriaxone and prednisone 10 mg daily and breathing t reatments. Pulmonary is on board. 12/18/2020 Patient is seen this morning currently continued on 6 L of oxygen via nasal cannula and tolerating well. Multiple medical consultations following including hematology. Platelets continue to trend up in our currently 83 and hemoglobin is 9.9. Patient continues to have mild discomfort although states is slightly improved with the cool solution and will continue. Patient was having some issues with retaining urine after indwelling Murphy catheter was removed and one was replaced. Patient continues to deny any bowel movement and requesting an enema. Instructed and encouraged the patient to continue with incentive spirometer and increasing activity and continuing with oral intake encouragement. Discussed with nursing staff about continuing to wean FiO2 as tolerated. 12/19/2020 Patient seen this morning continues to be on 6 L of oxygen via nasal cannula. Hemoglobin is stable at 8.9 and platelet count is 118. Current sodium is 135 and potassium is 3.9 with a creatinine of 0.4. Will discuss with nursing staff about weaning FiO2 with the possibility of getting to 4 L. Patient continues to have some difficulties in weakness with getting up but when she is up she is able to transfer and walk from the bed to the commode and chair. Patient is refusing rehab and would like to go home upon discharge. Urine culture preliminary showing gram-negative bacilli and will await finalization. Patient is maintained on IV ceftriaxone and will continue. If patient does go home within the next few days patient will transition to oral Ceftin for 2-3 days to complete the course. Will attempt to remove Murphy catheter again and monitor for retention. Review of systems: Constitutional: Reports fatigue, although improved no reports of fever, or chills Cardiovascular: No reports of chest pain or palpitations Respiratory: No reports of worsening shortness of breath, reports continued hoarse voice GI: No reports of nausea, vomiting, or diarrhea : Reports retention resolved after indwelling Murphy catheter reinitiation, reports some dysuria Neurovascular: reports weakness All inpatient medications were reviewed and appropriate changes in these medications as dictated in the interval history and assessment and plan. Objective - Vital Signs Vital signs: Vital Signs Temp 97.7 F 12/19/20 06:15 Pulse 109 H 12/19/20 06:15 Resp 19 12/19/20 06:15 BP 116/74 12/19/20 06:15 Pulse Ox 93 L 12/19/20 06:15 Intake & Output 12/18/20 12/19/20 12/19/20 18:59 06:59 18:59 Output Total 1800 Balance -1800 Weight 77.1 kg Output: Urine 1800 Other: Voiding Method Indwelling Catheter Indwelling Catheter # Bowel Movements 1 1 1 - Exam GENERAL: The patient is alert and oriented x3, not in any acute distress. Well developed, well nourished. HEENT: Pupils are round and equally reacting to light. EOMI. No scleral icterus. No conjunctival pallor. Normocephalic, atraumatic. No pharyngeal erythema. No thyromegaly. high flow nasal cannula noted and weaning as tolerated currently 6 L CARDIOVASCULAR: S1 and S2 present. No murmurs, rubs, or gallops. PULMONARY: Diffuse bilateral rhonchi without any significant wheezing fairly good air entry into bilateral lung ruiz ABDOMEN: Soft, nontender, nondistended, normoactive bowel sounds. No palpable organomegaly. MUSCULOSKELETAL: No joint swelling or deformity. EXTREMITIES: No cyanosis, clubbing, patient does have some mild pedal edema non- pitting, left more so than the right although improved NEUROLOGICAL: Gross neurological examination did not reveal any focal deficits. - Labs CBC & Chem 7: 12/19/20 06:43 12/19/20 06:43 Labs: Abnormal Lab Results - Last 24 Hours (Table) 12/18/20 12/18/20 12/19/20 Range/Units 09:18 20:02 06:43 RBC 3.84 L 3.04 L (4.10-5.20) X 10*6/uL Hgb 10.9 L 8.9 L (12.0-15.0) g/dL Hct 36.2 L 28.8 L (37.2-46.3) % MCHC 30.1 L 30.9 L (32.0-37.0) g/dL RDW 17.5 H 17.2 H (11.5-14.5) % Plt Count 137 L 118 L (140-440) X 10*3/uL Immature Gran # 0.09 H (0.00-0.04) X 10*3/uL Lymphocytes # 0.82 L (0.90-5.00) X 10*3/uL Eosinophils # 0.42 H (0.04-0.35) X 10*3/uL POC Glucose (mg/dL) 109 H (75-99) mg/dL 12/19/20 Range/Units 11:45 RBC (4.10-5.20) X 10*6/uL Hgb (12.0-15.0) g/dL Hct (37.2-46.3) % MCHC (32.0-37.0) g/dL RDW (11.5-14.5) % Plt Count (140-440) X 10*3/uL Immature Gran # (0.00-0.04) X 10*3/uL Lymphocytes # (0.90-5.00) X 10*3/uL Eosinophils # (0.04-0.35) X 10*3/uL POC Glucose (mg/dL) 102 H (75-99) mg/dL Microbiology - Last 24 Hours (Table) 12/17/20 08:00 Urine Culture - Preliminary Urine,Clean Catch Gram Neg Bacilli Assessment and Plan Assessment: -Acute severe hypoxic respiratory failure Secondary to Covid 19 pneumonia: Initially Requiring BiPAP. Has completed the Remdesivir and has received conva lescent plasma. currently maintained on oral prednisone and being titrated down. Prednisone now at 10 mg daily -Possible acute urinary tract infection due to indwelling Murphy catheter, initiated on ceftriaxone and awaiting urine cultures, preliminary showing gram- negative bacilli -Severe thrombocytopenia possible drug-induced and also related to oral infection, improving -Chronic persistent asthma mild acute exacerbation secondary to Covid 19. Continued on oral steroids and Symbicort and breathing treatments. -Hyperlipidemia -Hypothyroidism -hypokalemia, improved -History of gout. Not in exacerbation -Peripheral edema secondary to chronic venous stasis -Hiatal hernia with gastroesophageal reflux disease patient was resumed on Prilosec -GI prophylaxis -DVT prophylaxis. early ambulation -full code Plan: Patient will be continued on current oxygen via nasal cannula and titrate down FiO2 as tolerated. Currently on 6L high flow. continue with incentive spirometer. Continued on oral steroids and breathing treatments as needed. Prednisone titrating down. Encourage oral intake. Patient had an enema and was able to have a bowel movement. Patient states she feels much better. Multiple medical consultations following. Continue to encourage increasing activity as tolerated. Patient currently maintained on IV ceftriaxone for possible urinary tract infection and will await cultures. Preliminary cultures showing gram- negative bacilli . Will attempt to remove indwelling Murphy catheter and start Flomax and monitor for retention. If patient is able to get to 4 L via nasal cannula may possibly discharge to home with home care in the outpatient setting. Will discuss with case management about arranging for home oxygen. Patient will also be provided a prescription for a walker as she continues to have some gait dysfunction due to weakness and would benefit from a walker.
[2020-12-19] MEDS: TAMSULOSIN 0.4 MG CAP.ER.24H PO SCH (14:30)
--- NOTE | 2020-12-19 15:09 | P.PN ---
Subjective Progress Note Date: 12/19/20 Principal diagnosis: 60-year-old here patient hospitalized for COVID 19 related pneumonia and hypoxemia. The patient was found to have a low oxygen saturation. She was diagnosed having COVID 19 on 11/20/2020. However, her symptoms started approximately a week prior to that as the patient started having generalized weakness, fever and chills. In the hospital at [place], she was found to be hypoxic and she was placed on 15 L of oxygen by nasal cannula. She was started on Decadron and following that she was transferred to [facility] on 11/20/2020 for further evaluation. On today's evaluation the patient remains on 15 L of oxygen by nasal cannula. Laboratory markers show a LDH of 1482, her CRP is 239, her pro-calcitonin level is at 1.28, her white cell count is at 4.5 and the patient has a lymphopenia with a lymphocyte count of 0.7. The electrolytes all within normal limits. Renal function is within normal limits. Glucose slightly elevated at 235. The chest x-ray is showing bilateral pulmonary infiltrates mainly involving the left lung and or significantly in the right upper lobe area. The patient is known to have COPD/asthma. The patient is also has history of hypothyroidism, hyperlipidemia and gout. She has history of hiatal hernia.. She is on Decadron 6 mg by mouth daily. She is on no DVT prophylaxis is receiving 40 mg of Lovenox her d-dimer level is at 0.36. On 11/22/2020 patient seen in follow-up in intensive care unit. She is awake and alert, oriented 3, she is currently on BiPAP support with pressures of 14/5 and FiO2 of 100%, and her SpO2 is a 99%. Patient states she doesn't feel significantly more short of breath, however she tachypneic with a respiratory rate of 28 BPM, she has been febrile T-max of 10 1F, her pro-calcitonin came back elevated at 1.28 suggesting possibility of bacterial infection. Today we started her on Remdesivir, today's date to off treatment, her inflammatory markers are trending up, LDH is up to 1940, CRP is 143.6, d-dimer is 0.78, and is on prophylactic dose of Lovenox 40 mg daily, electrolytes and renal profile are unremarkable. O'Christiano is 9.2, hemoglobin is 11, platelet count is 322, neutrophils is 8.3, and in lymphocyte count is 0.5. Patient is on day 2 of high-dose IV steroids 20 mg daily. Patient is awake and alert, oriented 3, yesterday she reversed her CODE STATUS, from DO NOT RESUSCITATE to full code. On 11/23/2020 patient seen in follow-up in the intensive care unit, she remains on BiPAP support, has been very much dependent on it, and he desaturates rapidly even for short periods when the BiPAP mask is removed to give the patient oral medications, current BiPAP settings of 14/60 and FiO2 of 100%, her pulse ox is 93%. Awake and alert, she is oriented 3, she states her breathing is stable as long as she does not move and lays very still in bed. She is complaining of a dry cough, no chest discomfort, no palpitations. She is in sinus mechanism, bradycardic with a rate of 55 BPM, blood pressure is 116/66, not on any vasopressor support, her current IV fluids are 0.9 normal saline at a rate of 20 ML per hour. Patient's pattern has improved, T-max in last 24 hours 99.5F. Urinalysis was sent and shows no signs of infection, blood cultures will be sent today, last pro calcitonin yesterday was 1.29, repeat pro calcitonin has been sent and pending at this time, patient was empirically placed on azithromycin and Rocephin. Maintenance on high-dose IV steroids currently with Decadron 20 mg IV on the daily basis. Absent been reviewed, her d-dimer has trended up, and is at 5.13 today, her Lovenox dose will be adjusted 0.5 mg/kg of body weight twice daily, LDH is down slightly, 1670, CRP is relatively stable at 140.5. Electronic are within normal limits, patient is mildly prerenal, BUN is 30 creatinine 0.74, she also remains on oral dose of Lasix and she has had very limited oral intake. She has only been able to take one or 2 sips of oral liquids and she states things do not taste right. White blood cell count is 6.5, hemoglobin is 10.5. His chest x-ray has been reviewed and diffuse increasing groundglass opacities. I discussed the patient's CODE STATUS with her, and she is agreeable to CPR, intubation, defibrillation, CODE STATUS will be changed to full code On 12/04/2020 patient seen in follow-up in the intensive care unit, she is off the BiPAP support, and currently on high flow oxygen per Airvo 60 L/m and FiO2 of 70%, with a pulse ox between 92-94%, she is breathing comfortably, denies any chest discomfort, she sitting up in a chair, she looks comfortable, she has had no fever or chills. Today's chest x-ray shows coarse infiltrates bilaterally with slight interval progression. Patient is tolerating oral diet. She is off the TPN. She is on 0.9 normal saline at a rate of 10 ML per hour, today's labs have been reviewed, d-dimer is improved from a few days back and is down to 6.70, patient is on Lovenox 40 mg twice a day, white blood cell count is 9.1, hemoglobin is 10.8, sodium is 134, potassium is 4.4, chloride is 96, CO2 is 34, B1 is 20, creatinine 0.64 LDH is 1660, CRP is less than 5. Patient remains on daily dose of IV Lasix, colchicine, Pepcid 20 mg twice a day, bronchodilators, IV Solu-Medrol 40 mg every 8 hours On 12/05/2020 patient is seen in follow-up in the intensive care unit, she ashwin ins on high flow oxygen per Airvo at 60 L/m and FiO2 of 75%, in the night her FiO2 have to be bumped up a little bit from a 70% because of an episode of desaturation. She also required 4 hours on BiPAP support. However this morning patient appears to be calm and comfortable, sitting up in the recliner, in her pulse ox on the Airvo at previously mentioned settings is 98-100%, she is breathing comfortaby. Patient is awake and alert, oriented 3, no altered mentation, she is in sinus mechanism, she is on 0.9 at 10 ML per hour, no other drips, she's been afebrile, vital signs have been stable. Chest x-ray has been reviewed, and it shows patchy perihilar and basilar infiltrates persistence wi thout significant change. She remains on once daily dose of Lasix, and she is in -1090 mL fluid balance over the last 24 hours. She has been tolerating oral intake, no nausea vomiting or abdominal pain. Currently patient remains on IV steroids with Solu-Medrol 40 mg every 8 hours, colchicine, vitamin C D and zinc, melatonin, and bronchodilators. Today's d-dimer is 7.58. And patient remains on Lovenox at 40 mg twice daily which is 0.5 mg/kg of body weight twice daily. Patient also continues on Zosyn for empiric antibiotic coverage. Blood cultures have shown no growth. Follow-up LDH is trending down on today's labs and is down to 1370, CRP is less than 5. On 12/06/2020 patient seen in follow-up in intensive care unit, patient remains on Airvo at 60L and Fio2 75%. Satting between 88-91%, did require BiPap support last night for a few hours, currently back on Airvo. Patient is breathing comfortably, no acute distress, no chest discomfort. No fever, or chills. Patient is currently on 0.9 NS at 10 ml/hr. patient remains on Lasix, she is in -1.8 L fluid balance over the last 24 hours, however her chest x-ray shows worsening airspace disease, and pulmonary edema. Blood pressure has been stable, today's labs have been reviewed, showing serum sodium of 135, potassium is 4.3, chloride is 97, CO2 is 24, B1 is 24, creatinine 0.64. Proalcitonin level came back negative, we can stop the Zosyn cultures are negative. No fever or chills. No nausea vomiting diarrhea. On 12/07/2020 patient seen in follow-up in intensive care unit, she remains on high flow oxygen per Airvo at 60 L, and FiO2 of 70%, and her pulse ox is 90-91%, looks fairly comfortable, she is sitting up on the edge of the bed, appears to be in no acute distress, she is getting ready to eat breakfast this morning, she has been afebrile, vital signs have been stable. her chest x-ray today showed diffuse increased lung markings more focal in the right lower lobe, patient has received increased dose of Lasix, and her chest x-ray shows better aeration compared to yesterday's exam.today's labs have been reviewed, her d-dimer is trending down, down to 5.40, white count is 10.2, hemoglobin is 11.4, sodium is 134, potassium is 3.3, chloride 96, CO2 is 23, BUN is 26 creatinine 0.64. LDH is 1300, CRP is less than 5, blood culture has shown no growth. On 12/13/2020 patient seen in follow-up in intensive care unit, she is currently down to 15 L per simple high flow nasal cannula, pulse ox is 92-93%, hemodyna mics she stable, she is afebrile. There is a bit fatigued, but no acute distress, lung sounds revealed coarse inspiratory crackles over right lower lobe, relatively clear in the left lung. Does have a congested loose cough, no wheezing, she is on albuterol and Symbicort as, she remains on oral prednisone 40 mg once daily, but can further cut back to 20 mg daily. 0.9 normal saline at a rate of 20 ML per hour, labs reviewed, showing blood cell count of 10.9, hemoglobin is 10.8, platelet count is 8, patient so far transfused 2 units of platelets, no signs of bleeding, serum sodium is down to 127, patient had been on IV diuretics, which we will place on hold, potassium 3.2, chloride is 91, CO2 33, B1 is 23 creatinine 0.57, patient is tolerating oral intake, no nausea vomiting or diarrhea, we'll give the patient is small fluid bolus. And has developed significant ulceration and thrush in her oral cavity and tongue. Receiving Cheo's solution, and nystatin swish and swallow, we will add Diflucan for oral candidiasis as well. She is breathing comfortably, she appears fatigued, but she is in good spirits. On 12/18/2000 patient seen in follow-up on medical floor, she is currently down to 6 L, her pulse ox is between 92-94%, she is awake and alert, in no acute distress, is weak, but breathing comfortably, she states overall she is feeling better, no fever or chills. The count is improving, up to 83,000 today, no bleeding. Last chest x-ray on 12/16/2020 showed worsening bilateral diffuse airspace disease and low lung volumes. Patient is working on incentive spirometer. Her recheck for coronavirus PCR was negative, urinalysis showed signs of urinary tract infection for which patient was started on Rocephin, urine culture has been sent and is pending at this time. No new labs today, LDH is 335, CRP is less than 0.4. Prednisone is down to 10 mg daily On 12/19/2020 patient seen in follow-up on medical floor, she continues to improve, she remains on 6 L of oxygen her pulse ox of 93-95%, we dropped FiO2 down to 5 L, she is breathing comfortably, vital signs have been stable, she's been afebrile, she is walking to the bathroom, but appears weak. Follow-up chest x-ray today showed improvement of a diffuse bilateral lung infiltrate. We started her on empiric Rocephin for urinary tract infection, urine culture is starting to grow gram-negative bacilli, fungal culture is pending, patient continues on nebulized bronchodilators, she is down to 10 mg of prednisone. No altered mentation, she is tolerating oral intake, no nausea or vomiting. She is adamant about going home after discharge, she does not want to consider ECF for rehabilitation. Today's labs have been reviewed Objective - Vital Signs Vital signs: Vital Signs Temp 98.2 F 12/19/20 14:00 Pulse 109 H 12/19/20 06:15 Resp 20 12/19/20 14:00 BP 126/77 12/19/20 14:00 Pulse Ox 93 L 12/19/20 14:00 Intake & Output 12/18/20 12/19/20 12/19/20 18:59 06:59 18:59 Output Total 1800 Balance -1800 Weight 77.1 kg Output: Urine 1800 Other: Voiding Method Indwelling Catheter Indwelling Catheter Indwelling Catheter # Bowel Movements 1 1 1 - Exam GENERAL EXAM: Alert, pleasant, 60-year-old white female on 6 L of oxygen per simple high flow nasal cannula 91% comfortable in no apparent distress. HEAD: Normocephalic/atraumatic. EYES: Normal reaction of pupils, equal size. Conjunctiva pink, sclera white. NOSE: Clear with pink turbinates. THROAT: No erythema or exudates. NECK: No masses, no JVD, no thyroid enlargement, no adenopathy. CHEST: No chest wall deformity. Symmetrical expansion. LUNGS: Equal air entry with diffuse crackles right lower lobe, clear left lung CVS: Regular rate and rhythm, normal S1 and S2, no gallops, no murmurs, no rubs ABDOMEN: Soft, nontender. No hepatosplenomegaly, normal bowel sounds, no guarding or rigidity. EXTREMITIES: No clubbing, no edema, no cyanosis, 2+ pulses and upper and lower extremities. MUSCULOSKELETAL: Muscle strength and tone normal. SPINE: No scoliosis or deformity SKIN: No rashes CENTRAL NERVOUS SYSTEM: Alert and oriented -3. No focal deficits, tone is normal in all 4 extremities. PSYCHIATRIC: Alert and oriented -3. Appropriate affect. Intact judgment and insight. - Labs CBC & Chem 7: 12/19/20 06:43 12/19/20 06:43 Labs: Abnormal Lab Results - Last 24 Hours (Table) 12/18/20 12/19/20 12/19/20 Range/Units 20:02 06:43 06:43 RBC 3.04 L (4.10-5.20) X 10*6/uL Hgb 8.9 L (12.0-15.0) g/dL Hct 28.8 L (37.2-46.3) % MCHC 30.9 L (32.0-37.0) g/dL RDW 17.2 H (11.5-14.5) % Plt Count 118 L (140-440) X 10*3/uL Lymphocytes # 0.82 L (0.90-5.00) X 10*3/uL Anion Gap 3.80 L (4.00-12.00) mmol/L Creatinine 0.4 L (0.6-1.5) mg/dL BUN/Creatinine Ratio 22.50 H (12.00-20.00) Ratio POC Glucose (mg/dL) 109 H (75-99) mg/dL Calcium 8.3 L (8.7-10.3) mg/dL 12/19/20 Range/Units 11:45 RBC (4.10-5.20) X 10*6/uL Hgb (12.0-15.0) g/dL Hct (37.2-46.3) % MCHC (32.0-37.0) g/dL RDW (11.5-14.5) % Plt Count (140-440) X 10*3/uL Lymphocytes # (0.90-5.00) X 10*3/uL Anion Gap (4.00-12.00) mmol/L Creatinine (0.6-1.5) mg/dL BUN/Creatinine Ratio (12.00-20.00) Ratio POC Glucose (mg/dL) 102 H (75-99) mg/dL Calcium (8.7-10.3) mg/dL Microbiology - Last 24 Hours (Table) 12/17/20 08:00 Urine Culture - Preliminary Urine,Clean Catch Gram Neg Bacilli Assessment and Plan Plan: Assessment: #1. acute Covid 19 related pneumonia with bilateral pulmonary infiltrates most significant in the right upper lobe and the left lung seems to be diffusely infiltrated #2. acute severe hypoxic respiratory failure, worsening over last 24 hours, patient on FiO2 100%, and BiPAP support, the evidence of worsening inflammatory markers and worsening oxygenation. She received Remdesivir treatment on 11/21/2020, and high-dose IV Decadron on 11/21/2020, vision received 2 doses of Tocilizumab. Patient had rapid worsening of oxygenation and was transferred to the intensive care unit on 11/21/2020. Currently requiring BiPAP support with pressures of 14/5 and FiO2 100% On 11/23/2020 is on BiPAP support with FiO2 of 100%, and very much dependent on BiPAP support. On 12/04/2020 patient is on Airvo at 60 L in and FiO2 of 70% with pulse ox of 94% On 12/13/2020 patient is off the Airvo and is on simple high flow nasal cannula at 15 L/m On 12/18/2020 patient is down to 6 L of oxygen pulse ox is 92-94%, is on medical surgical floor, doing well #3. Thrombocytopenia, probably drug induced could be related to colchicine although the possibility of other drugs or even consumptive thrombocytopenia related to viral infection or even HIT note that the heparin-induced thrombocytopenia antibodies came back negative and the patient received platelets, and today on 12/13/2020 her platelet count is still 8 and patient will receive another unit of platelets. Coagulation profile is within normal limits. No signs of any DIC. All of the medications that can potentially cause thrombocytopenia has been discontinued including colchicine, Pepcid and the patient is currently not receiving any anticoagulants. #4. Increased pro-calcitonin rule out possibility of bacterial infection, we'll cover the patient with azithromycin and Rocephin, we'll send urinalysis with cultures, we'll send a Legionella urine antigen and mycoplasma IgM and IgG, both mycoplasma titers were low, Legionella urine antigen was negative, blood cultures have shown no growth. #5. chronic persistent bronchial asthma with an FEV1 of 82-87% on outpatient basis maintained on Symbicort #6. steroid-induced hyperglycemia #7. hypertension #8. hypothyroidism #9. Osteoarthritis and gout #10. Peripheral neuropathy involving lower extremities #11. Peripheral vascular disease #12. Chronic normocytic anemia #13. More than [id number] smoking history patient is currently an ex-smoker hiatal hernia with reflux #14. Hyponatremia related to diuretic therapy, improving, and diuretics are on hold, patient is on oral Plan: Follow-up chest x-ray shows improvement in appearance of bilateral airspace disease, FiO2 is further drop down to 5 L, continue weaning FiO2, continue with current dose prednisone, currently down to 10 mg per day, continue bronchodilators, pleasant count is improving, no evidence of bleeding, patient is tolerating ambulation in the room, evaluate for possibility of needing rehabilitation after discharge. From pulmonary perspective patient could be considered for discharge preferably to rehab in the next 24 hours. I performed a history & physical examination of the patient and discussed their management with my nurse practitioner, Cate Madsen. I reviewed the nurse practitioner's note and agree with the documented findings and plan of care. Lung sounds are positive for diffuse crackles throughout the lung ruiz. The findings and the impression was discussed with the patient. I attest to the documentation by the nurse practitioner. Time with Patient: Less than 30
[2020-12-19 16:47] LABS: Glucose,Whole Blood 100 mg/dL (75-99)
[2020-12-19] MEDS: ATORVASTATIN 40 MG TAB PO SCH (20:00)
[2020-12-19] MEDS: MONTELUKAST 10 MG TAB PO SCH (20:00)
[2020-12-19] MEDS: GABAPENTIN 300 MG CAP PO SCH (20:00)
[2020-12-19] MEDS: PRAMIPEXOLE 0.5 MG TAB PO SCH (20:00)
[2020-12-19] MEDS: MELATONIN 3 MG TABLET PO SCH (20:00)
[2020-12-19 21:00] LABS: Glucose,Whole Blood 105 mg/dL (75-99)
[2020-12-20] MEDS: SALT AND SODA MOUTHWASH 1,000 ML PO SCH ×6 (01:56→23:48)
[2020-12-20] MEDS: LEVOTHYROXINE 75 MCG TAB PO SCH (05:45)
[2020-12-20] MEDS: ASCORBIC ACID 500 MG TAB PO SCH (07:06)
[2020-12-20] MEDS: TAMSULOSIN 0.4 MG CAP.ER.24H PO SCH (07:06)
[2020-12-20] MEDS: SUCRALFATE 1 GM TAB PO SCH ×4 (07:06→19:35)
[2020-12-20] MEDS: predniSONE 10 MG TAB PO SCH (07:06)
[2020-12-20] MEDS: GABAPENTIN 100 MG CAP PO SCH ×2 (07:06→12:15)
[2020-12-20] MEDS: ZINC SULFATE 220 MG CAP PO SCH (07:06)
[2020-12-20] MEDS: SODIUM CHLORIDE TAB 1 GM TAB PO SCH ×3 (07:08→19:35)
[2020-12-20] MEDS: MAG HYDROX/AL HYDROX/SIMETH 30 ML, LIDOCAINE VISCOUS 30 ML, diphenhydrAMINE ELIXIR 75 M... PO SCH ×12 (07:09→19:35)
[2020-12-20 07:35] LABS: Glucose,Whole Blood 78 mg/dL (75-99)
[2020-12-20] MEDS: INSULIN ASPART (NovoLOG) 100 UNIT/ML VIAL SQ SCH ×4 (07:41→21:08)
[2020-12-20] MEDS: FLUCONAZOLE IN NACL,ISO-OSM 100 MG in SALINE 1 50ML.BAG IVPB SCH (07:41)
[2020-12-20] MEDS: SYMBICORT 160-4.5 MCG INHALER INHALATION SCH ×2 (08:21→20:43)
[2020-12-20] MEDS: ALBUTEROL HFA INHALER INHALATION SCH ×4 (08:21→20:43)
[2020-12-20] MEDS: TIOTROPIUM 2.5 MCG INHALER INHALATION SCH (08:21)
[2020-12-20 09:21] LABS: Basophils # (A) 0.01 X 10*3/uL (0.00-0.10); Basophils % (A) 0.2 %; Eosinophils # (A) 0.23 X 10*3/uL (0.04-0.35); Eosinophils % (A) 4.9 %; HCT 27.5 % (37.2-46.3); HGB 8.4 g/dL (12.0-15.0); Lymphocytes # (A) 0.75 X 10*3/uL (0.90-5.00); Lymphocytes % (A) 15.9 %; MCH 28.8 pg (27.0-32.0); MCHC 30.5 g/dL (32.0-37.0); MCV 94.2 fL (80.0-97.0); Mean Platelet Volume 10.1 fL (9.5-12.2); Monocytes # (A) 0.39 X 10*3/uL (0.20-1.00); Monocytes % (A) 8.3 %; Neutrophils % (A) 70.1 %; Platelet Count 125 X 10*3/uL (140-440); RBC 2.92 X 10*6/uL (4.10-5.20); RDW 16.7 % (11.5-14.5); WBC 4.71 X 10*3/uL (4.50-10.00)
[2020-12-20 11:26] LABS: Glucose,Whole Blood 121 mg/dL (75-99)
--- NOTE | 2020-12-20 12:08 | P.PN ---
Subjective Progress Note Date: 12/20/20 Principal diagnosis: covid 19, thrombocytopenia (ITP) In f/u today pt is doing better, on regular NC for O2, 4L. Stable congested cough, voice cont to be hoarse, She is feeling better. Objective - Vital Signs Vital signs: Vital Signs Temp 98.0 F 12/20/20 08:00 Pulse 63 12/20/20 08:00 Resp 19 12/20/20 08:00 BP 119/75 12/20/20 08:00 Pulse Ox 93 L 12/20/20 08:00 Intake & Output 12/19/20 12/20/20 12/20/20 18:59 06:59 18:59 Output Total 1400 1800 Balance -1400 -1800 Weight 75.5 kg Output: Urine 1400 1800 Uretheral (Murphy) 600 Other: Voiding Method Indwelling Catheter Bedside Commode # Voids 1 # Bowel Movements 1 1 - Constitutional General appearance: Present: average body habitus, cooperative, no acute distress - EENT EENT Comment(s): mild redness to oral mucosa, healed well Eyes: Present: anicteric sclerae, EOMI ENT: Present: hearing grossly normal - Respiratory Respiratory: bilateral: diminished - Cardiovascular Heart sounds: normal: S1, S2 - Peripheral edema leg Peripheral Edema: bilateral: None - Gastrointestinal General gastrointestinal: Present: normal bowel sounds, soft - Neurologic Neurologic: Present: CNII-XII intact - Musculoskeletal Musculoskeletal: Present: generalized weakness - Psychiatric Psychiatric: Present: A&O x's 3, appropriate affect, intact judgment & insight - Labs CBC & Chem 7: 12/20/20 05:23 12/19/20 06:43 Labs: Abnormal Lab Results - Last 24 Hours (Table) 12/19/20 12/19/20 12/19/20 Range/Units 06:43 06:43 11:45 RBC 3.04 L (4.10-5.20) X 10*6/uL Hgb 8.9 L (12.0-15.0) g/dL Hct 28.8 L (37.2-46.3) % MCHC 30.9 L (32.0-37.0) g/dL RDW 17.2 H (11.5-14.5) % Plt Count 118 L (140-440) X 10*3/uL Lymphocytes # 0.82 L (0.90-5.00) X 10*3/uL Anion Gap 3.80 L (4.00-12.00) mmol/L Creatinine 0.4 L (0.6-1.5) mg/dL BUN/Creatinine Ratio 22.50 H (12.00-20.00) Ratio POC Glucose (mg/dL) 102 H (75-99) mg/dL Calcium 8.3 L (8.7-10.3) mg/dL 12/19/20 12/19/20 12/20/20 Range/Units 16:46 20:58 05:23 RBC 2.92 L (4.10-5.20) X 10*6/uL Hgb 8.4 L (12.0-15.0) g/dL Hct 27.5 L (37.2-46.3) % MCHC 30.5 L (32.0-37.0) g/dL RDW 16.7 H (11.5-14.5) % Plt Count 125 L (140-440) X 10*3/uL Lymphocytes # 0.75 L (0.90-5.00) X 10*3/uL Anion Gap (4.00-12.00) mmol/L Creatinine (0.6-1.5) mg/dL BUN/Creatinine Ratio (12.00-20.00) Ratio POC Glucose (mg/dL) 100 H 105 H (75-99) mg/dL Calcium (8.7-10.3) mg/dL Microbiology - Last 24 Hours (Table) 12/17/20 08:00 Urine Culture - Final Urine,Clean Catch Escherichia coli Assessment and Plan (1) Thrombocytopenia Narrative/Plan: Sudden onset with acute illness. She was given plasma and had plt transfusions PRN. Plt 125,000 today-recovering as pt recovers from severe illness. [id number] testing interestingly came back low, post plasma transfusion so, the value was likely a bit lower then reported. Covid related TTP, pt able to recover without specific treatment for the disorder. HIT ab neg Current Visit: Yes Status: Acute Priority: High Code(s): D69.6 - THROMBOCYTOPENIA, UNSPECIFIED SNOMED Code(s): 594097709 (2) Mucositis Narrative/Plan: Cont kools and salt and soda continue. Current Visit: Yes Status: Acute Priority: High Code(s): K12.30 - ORAL MUCOSITIS (ULCERATIVE), UNSPECIFIED SNOMED Code(s): 57076874 (3) Acute ITP Narrative/Plan: 2/2 covid infection. IVIG dosed and administered x 3. Plt improving. Based on ADAMTs result may have been a degree of TTP Current Visit: Yes Status: Acute Priority: High Code(s): D69.3 - IMMUNE THROMBOCYTOPENIC PURPURA SNOMED Code(s): 61521162
--- NOTE | 2020-12-20 13:10 | P.PN ---
Subjective Progress Note Date: 12/20/20 Principal diagnosis: 60-year-old here patient hospitalized for COVID 19 related pneumonia and hypoxemia. The patient was found to have a low oxygen saturation. She was diagnosed having COVID 19 on 11/20/2020. However, her symptoms started approximately a week prior to that as the patient started having generalized weakness, fever and chills. In the hospital at [place], she was found to be hypoxic and she was placed on 15 L of oxygen by nasal cannula. She was started on Decadron and following that she was transferred to [facility] on 11/20/2020 for further evaluation. On today's evaluation the patient remains on 15 L of oxygen by nasal cannula. Laboratory markers show a LDH of 1482, her CRP is 239, her pro-calcitonin level is at 1.28, her white cell count is at 4.5 and the patient has a lymphopenia with a lymphocyte count of 0.7. The electrolytes all within normal limits. Renal function is within normal limits. Glucose slightly elevated at 235. The chest x-ray is showing bilateral pulmonary infiltrates mainly involving the left lung and or significantly in the right upper lobe area. The patient is known to have COPD/asthma. The patient is also has history of hypothyroidism, hyperlipidemia and gout. She has history of hiatal hernia.. She is on Decadron 6 mg by mouth daily. She is on no DVT prophylaxis is receiving 40 mg of Lovenox her d-dimer level is at 0.36. On 11/22/2020 patient seen in follow-up in intensive care unit. She is awake and alert, oriented 3, she is currently on BiPAP support with pressures of 14/5 and FiO2 of 100%, and her SpO2 is a 99%. Patient states she doesn't feel significantly more short of breath, however she tachypneic with a respiratory rate of 28 BPM, she has been febrile T-max of 10 1F, her pro-calcitonin came back elevated at 1.28 suggesting possibility of bacterial infection. Today we started her on Remdesivir, today's date to off treatment, her inflammatory markers are trending up, LDH is up to 1940, CRP is 143.6, d-dimer is 0.78, and is on prophylactic dose of Lovenox 40 mg daily, electrolytes and renal profile are unremarkable. O'Christiano is 9.2, hemoglobin is 11, platelet count is 322, neutrophils is 8.3, and in lymphocyte count is 0.5. Patient is on day 2 of high-dose IV steroids 20 mg daily. Patient is awake and alert, oriented 3, yesterday she reversed her CODE STATUS, from DO NOT RESUSCITATE to full code. On 11/23/2020 patient seen in follow-up in the intensive care unit, she remains on BiPAP support, has been very much dependent on it, and he desaturates rapidly even for short periods when the BiPAP mask is removed to give the patient oral medications, current BiPAP settings of 14/60 and FiO2 of 100%, her pulse ox is 93%. Awake and alert, she is oriented 3, she states her breathing is stable as long as she does not move and lays very still in bed. She is complaining of a dry cough, no chest discomfort, no palpitations. She is in sinus mechanism, bradycardic with a rate of 55 BPM, blood pressure is 116/66, not on any vasopressor support, her current IV fluids are 0.9 normal saline at a rate of 20 ML per hour. Patient's pattern has improved, T-max in last 24 hours 99.5F. Urinalysis was sent and shows no signs of infection, blood cultures will be sent today, last pro calcitonin yesterday was 1.29, repeat pro calcitonin has been sent and pending at this time, patient was empirically placed on azithromycin and Rocephin. Maintenance on high-dose IV steroids currently with Decadron 20 mg IV on the daily basis. Absent been reviewed, her d-dimer has trended up, and is at 5.13 today, her Lovenox dose will be adjusted 0.5 mg/kg of body weight twice daily, LDH is down slightly, 1670, CRP is relatively stable at 140.5. Electronic are within normal limits, patient is mildly prerenal, BUN is 30 creatinine 0.74, she also remains on oral dose of Lasix and she has had very limited oral intake. She has only been able to take one or 2 sips of oral liquids and she states things do not taste right. White blood cell count is 6.5, hemoglobin is 10.5. His chest x-ray has been reviewed and diffuse increasing groundglass opacities. I discussed the patient's CODE STATUS with her, and she is agreeable to CPR, intubation, defibrillation, CODE STATUS will be changed to full code On 12/04/2020 patient seen in follow-up in the intensive care unit, she is off the BiPAP support, and currently on high flow oxygen per Airvo 60 L/m and FiO2 of 70%, with a pulse ox between 92-94%, she is breathing comfortably, denies any chest discomfort, she sitting up in a chair, she looks comfortable, she has had no fever or chills. Today's chest x-ray shows coarse infiltrates bilaterally with slight interval progression. Patient is tolerating oral diet. She is off the TPN. She is on 0.9 normal saline at a rate of 10 ML per hour, today's labs have been reviewed, d-dimer is improved from a few days back and is down to 6.70, patient is on Lovenox 40 mg twice a day, white blood cell count is 9.1, hemoglobin is 10.8, sodium is 134, potassium is 4.4, chloride is 96, CO2 is 34, B1 is 20, creatinine 0.64 LDH is 1660, CRP is less than 5. Patient remains on daily dose of IV Lasix, colchicine, Pepcid 20 mg twice a day, bronchodilators, IV Solu-Medrol 40 mg every 8 hours On 12/05/2020 patient is seen in follow-up in the intensive care unit, she ashwin ins on high flow oxygen per Airvo at 60 L/m and FiO2 of 75%, in the night her FiO2 have to be bumped up a little bit from a 70% because of an episode of desaturation. She also required 4 hours on BiPAP support. However this morning patient appears to be calm and comfortable, sitting up in the recliner, in her pulse ox on the Airvo at previously mentioned settings is 98-100%, she is breathing comfortaby. Patient is awake and alert, oriented 3, no altered mentation, she is in sinus mechanism, she is on 0.9 at 10 ML per hour, no other drips, she's been afebrile, vital signs have been stable. Chest x-ray has been reviewed, and it shows patchy perihilar and basilar infiltrates persistence wi thout significant change. She remains on once daily dose of Lasix, and she is in -1090 mL fluid balance over the last 24 hours. She has been tolerating oral intake, no nausea vomiting or abdominal pain. Currently patient remains on IV steroids with Solu-Medrol 40 mg every 8 hours, colchicine, vitamin C D and zinc, melatonin, and bronchodilators. Today's d-dimer is 7.58. And patient remains on Lovenox at 40 mg twice daily which is 0.5 mg/kg of body weight twice daily. Patient also continues on Zosyn for empiric antibiotic coverage. Blood cultures have shown no growth. Follow-up LDH is trending down on today's labs and is down to 1370, CRP is less than 5. On 12/06/2020 patient seen in follow-up in intensive care unit, patient remains on Airvo at 60L and Fio2 75%. Satting between 88-91%, did require BiPap support last night for a few hours, currently back on Airvo. Patient is breathing comfortably, no acute distress, no chest discomfort. No fever, or chills. Patient is currently on 0.9 NS at 10 ml/hr. patient remains on Lasix, she is in -1.8 L fluid balance over the last 24 hours, however her chest x-ray shows worsening airspace disease, and pulmonary edema. Blood pressure has been stable, today's labs have been reviewed, showing serum sodium of 135, potassium is 4.3, chloride is 97, CO2 is 24, B1 is 24, creatinine 0.64. Proalcitonin level came back negative, we can stop the Zosyn cultures are negative. No fever or chills. No nausea vomiting diarrhea. On 12/07/2020 patient seen in follow-up in intensive care unit, she remains on high flow oxygen per Airvo at 60 L, and FiO2 of 70%, and her pulse ox is 90-91%, looks fairly comfortable, she is sitting up on the edge of the bed, appears to be in no acute distress, she is getting ready to eat breakfast this morning, she has been afebrile, vital signs have been stable. her chest x-ray today showed diffuse increased lung markings more focal in the right lower lobe, patient has received increased dose of Lasix, and her chest x-ray shows better aeration compared to yesterday's exam.today's labs have been reviewed, her d-dimer is trending down, down to 5.40, white count is 10.2, hemoglobin is 11.4, sodium is 134, potassium is 3.3, chloride 96, CO2 is 23, BUN is 26 creatinine 0.64. LDH is 1300, CRP is less than 5, blood culture has shown no growth. On 12/13/2020 patient seen in follow-up in intensive care unit, she is currently down to 15 L per simple high flow nasal cannula, pulse ox is 92-93%, hemodyna mics she stable, she is afebrile. There is a bit fatigued, but no acute distress, lung sounds revealed coarse inspiratory crackles over right lower lobe, relatively clear in the left lung. Does have a congested loose cough, no wheezing, she is on albuterol and Symbicort as, she remains on oral prednisone 40 mg once daily, but can further cut back to 20 mg daily. 0.9 normal saline at a rate of 20 ML per hour, labs reviewed, showing blood cell count of 10.9, hemoglobin is 10.8, platelet count is 8, patient so far transfused 2 units of platelets, no signs of bleeding, serum sodium is down to 127, patient had been on IV diuretics, which we will place on hold, potassium 3.2, chloride is 91, CO2 33, B1 is 23 creatinine 0.57, patient is tolerating oral intake, no nausea vomiting or diarrhea, we'll give the patient is small fluid bolus. And has developed significant ulceration and thrush in her oral cavity and tongue. Receiving Cheo's solution, and nystatin swish and swallow, we will add Diflucan for oral candidiasis as well. She is breathing comfortably, she appears fatigued, but she is in good spirits. On 12/18/2000 patient seen in follow-up on medical floor, she is currently down to 6 L, her pulse ox is between 92-94%, she is awake and alert, in no acute distress, is weak, but breathing comfortably, she states overall she is feeling better, no fever or chills. The count is improving, up to 83,000 today, no bleeding. Last chest x-ray on 12/16/2020 showed worsening bilateral diffuse airspace disease and low lung volumes. Patient is working on incentive spirometer. Her recheck for coronavirus PCR was negative, urinalysis showed signs of urinary tract infection for which patient was started on Rocephin, urine culture has been sent and is pending at this time. No new labs today, LDH is 335, CRP is less than 0.4. Prednisone is down to 10 mg daily On 12/19/2020 patient seen in follow-up on medical floor, she continues to improve, she remains on 6 L of oxygen her pulse ox of 93-95%, we dropped FiO2 down to 5 L, she is breathing comfortably, vital signs have been stable, she's been afebrile, she is walking to the bathroom, but appears weak. Follow-up chest x-ray today showed improvement of a diffuse bilateral lung infiltrate. We started her on empiric Rocephin for urinary tract infection, urine culture is starting to grow gram-negative bacilli, fungal culture is pending, patient continues on nebulized bronchodilators, she is down to 10 mg of prednisone. No altered mentation, she is tolerating oral intake, no nausea or vomiting. She is adamant about going home after discharge, she does not want to consider ECF for rehabilitation. Today's labs have been reviewed On 12/20/2020 patient seen in follow-up on medical floor, she is awake and alert, she's had no acute events overnight, breathing comfortably. She is on 4 L of oxygen pulse ox is 93-95%, hemodynamics are stable, she has had no fever or chills. Today's labs have been noted, hemoglobin is 8.4, white blood cell count is 4.7, lymphocyte count is 0.7. She remains on fluconazole for oral candidiasis, and Rocephin for possibility of urinary tract infection. Urine culture did show E. coli. Patient is weak, but able to ambulate to the bathroom, she feels that she is getting stronger she can handle herself at home, and she is insisting on going home with help from her daughter. She is had no worsening dyspnea, no cognitive chest pain, she is rating oral intake, no nausea vomiting or diarrhea, vitals have been stable. Objective - Vital Signs Vital signs: Vital Signs Temp 98.0 F 12/20/20 08:00 Pulse 63 12/20/20 08:00 Resp 19 12/20/20 08:00 BP 119/75 12/20/20 08:00 Pulse Ox 93 L 12/20/20 08:00 Intake & Output 12/19/20 12/20/20 12/20/20 18:59 06:59 18:59 Output Total 1400 1800 Balance -1400 -1800 Weight 75.5 kg Output: Urine 1400 1800 Uretheral (Murphy) 600 Other: Voiding Method Indwelling Catheter Bedside Commode # Voids 1 # Bowel Movements 1 1 - Exam GENERAL EXAM: Alert, pleasant, 60-year-old white female on 4 L of oxygen per simple high flow nasal cannula 93% comfortable in no apparent distress. HEAD: Normocephalic/atraumatic. EYES: Normal reaction of pupils, equal size. Conjunctiva pink, sclera white. NOSE: Clear with pink turbinates. THROAT: No erythema or exudates. NECK: No masses, no JVD, no thyroid enlargement, no adenopathy. CHEST: No chest wall deformity. Symmetrical expansion. LUNGS: Equal air entry with diffuse crackles right lower lobe, clear left lung CVS: Regular rate and rhythm, normal S1 and S2, no gallops, no murmurs, no rubs ABDOMEN: Soft, nontender. No hepatosplenomegaly, normal bowel sounds, no guarding or rigidity. EXTREMITIES: No clubbing, no edema, no cyanosis, 2+ pulses and upper and lower extremities. MUSCULOSKELETAL: Muscle strength and tone normal. SPINE: No scoliosis or deformity SKIN: No rashes CENTRAL NERVOUS SYSTEM: Alert and oriented -3. No focal deficits, tone is normal in all 4 extremities. PSYCHIATRIC: Alert and oriented -3. Appropriate affect. Intact judgment and insight. - Labs CBC & Chem 7: 12/20/20 05:23 12/19/20 06:43 Labs: Abnormal Lab Results - Last 24 Hours (Table) 12/19/20 12/19/20 12/20/20 Range/Units 16:46 20:58 05:23 RBC 2.92 L (4.10-5.20) X 10*6/uL Hgb 8.4 L (12.0-15.0) g/dL Hct 27.5 L (37.2-46.3) % MCHC 30.5 L (32.0-37.0) g/dL RDW 16.7 H (11.5-14.5) % Plt Count 125 L (140-440) X 10*3/uL Lymphocytes # 0.75 L (0.90-5.00) X 10*3/uL POC Glucose (mg/dL) 100 H 105 H (75-99) mg/dL 12/20/20 Range/Units 11:24 RBC (4.10-5.20) X 10*6/uL Hgb (12.0-15.0) g/dL Hct (37.2-46.3) % MCHC (32.0-37.0) g/dL RDW (11.5-14.5) % Plt Count (140-440) X 10*3/uL Lymphocytes # (0.90-5.00) X 10*3/uL POC Glucose (mg/dL) 121 H (75-99) mg/dL Microbiology - Last 24 Hours (Table) 12/17/20 08:00 Urine Culture - Final Urine,Clean Catch Escherichia coli Assessment and Plan Plan: Assessment: #1. acute Covid 19 related pneumonia with bilateral pulmonary infiltrates most significant in the right upper lobe and the left lung seems to be diffusely infiltrated #2. acute severe hypoxic respiratory failure, worsening over last 24 hours, patient on FiO2 100%, and BiPAP support, the evidence of worsening inflammatory markers and worsening oxygenation. She received Remdesivir treatment on 11/21/2020, and high-dose IV Decadron on 11/21/2020, vision received 2 doses of Tocilizumab. Improving and patient is currently down to 4 L of oxygen #3. Acute urinary tract infection related to E. coli #4. Thrombocytopenia, probably drug induced, improving #5. chronic persistent bronchial asthma with an FEV1 of 82-87% on outpatient basis maintained on Symbicort #6. steroid-induced hyperglycemia #7. hypertension #8. hypothyroidism #9. Osteoarthritis and gout #10. Peripheral neuropathy involving lower extremities #11. Peripheral vascular disease #12. Chronic normocytic anemia #13. More than [id number] smoking history patient is currently an ex-smoker hiatal hernia with reflux #14. Hyponatremia related to diuretic therapy, improved Plan: Continue weaning FiO2, patient can be switched to oral antibiotics for urinary tract infection, and oral Diflucan. continue bronchodilators, clinically she is improving, she is insisting on going home instead of rehab. She has been stable from pulmonary perspective, still requiring some oxygen, which the patient will go home on. She can be considered for discharge home if cleared by medicine. She will need outpatient follow-up with Dr. Elena in 7-10 days I performed a history & physical examination of the patient and discussed their management with my nurse practitioner, Cate Madsen. I reviewed the nurse practitioner's note and agree with the documented findings and plan of care. Lung sounds are positive for diffuse crackles throughout the lung ruiz. The findings and the impression was discussed with the patient. I attest to the documentation by the nurse practitioner. Time with Patient: Less than 30
--- NOTE | 2020-12-20 13:55 | P.PN ---
Subjective Patient had prolonged hospitalization secondary to covid 19 pneumonia presently on 4 L of onset and still getting short of breath with 40 steroids and with minimal ablation patient was advised to go to subacute rehabilitation but patient wanted to be discharged home with home care. The patient is also on Rocephin for urinary tract infection. Patient does have oral thrush for which patient is on oral fluconazole Constitutional: Denied any fatigue denied any fever. Cardio vascular: denied any chest pain, palpitations Gastrointestinal denied any nausea vomiting Pulmonary: Denied any shortness of breath cough Neurologic denied any new focal deficits All inpatient medications were reviewed and appropriate changes in these medications as dictated in the interval history and assessment and plan. Objective - Vital Signs Vital signs: Vital Signs Temp 98.0 F 12/20/20 08:00 Pulse 63 12/20/20 08:00 Resp 19 12/20/20 08:00 BP 119/75 12/20/20 08:00 Pulse Ox 93 L 12/20/20 08:00 Intake & Output 12/19/20 12/20/20 12/20/20 18:59 06:59 18:59 Output Total 1400 1800 Balance -1400 -1800 Weight 75.5 kg Output: Urine 1400 1800 Uretheral (Murphy) 600 Other: Voiding Method Indwelling Catheter Bedside Commode # Voids 1 # Bowel Movements 1 1 - Exam GENERAL: The patient is alert and oriented x3, not in any acute distress. Well developed, well nourished. HEENT: Pupils are round and equally reacting to light. EOMI. No scleral icterus. No conjunctival pallor. Normocephalic, atraumatic. No pharyngeal erythema. No thyromegaly. high flow nasal cannula noted and weaning as tolerated currently 6 L CARDIOVASCULAR: S1 and S2 present. No murmurs, rubs, or gallops. PULMONARY: Diffuse bilateral rhonchi without any significant wheezing fairly good air entry into bilateral lung ruiz ABDOMEN: Soft, nontender, nondistended, normoactive bowel sounds. No palpable organomegaly. MUSCULOSKELETAL: No joint swelling or deformity. EXTREMITIES: No cyanosis, clubbing, patient does have some mild pedal edema non- pitting, left more so than the right although improved NEUROLOGICAL: Gross neurological examination did not reveal any focal deficits. - Labs CBC & Chem 7: 12/20/20 05:23 12/19/20 06:43 Labs: Abnormal Lab Results - Last 24 Hours (Table) 12/19/20 12/19/20 12/20/20 Range/Units 16:46 20:58 05:23 RBC 2.92 L (4.10-5.20) X 10*6/uL Hgb 8.4 L (12.0-15.0) g/dL Hct 27.5 L (37.2-46.3) % MCHC 30.5 L (32.0-37.0) g/dL RDW 16.7 H (11.5-14.5) % Plt Count 125 L (140-440) X 10*3/uL Lymphocytes # 0.75 L (0.90-5.00) X 10*3/uL POC Glucose (mg/dL) 100 H 105 H (75-99) mg/dL 12/20/20 Range/Units 11:24 RBC (4.10-5.20) X 10*6/uL Hgb (12.0-15.0) g/dL Hct (37.2-46.3) % MCHC (32.0-37.0) g/dL RDW (11.5-14.5) % Plt Count (140-440) X 10*3/uL Lymphocytes # (0.90-5.00) X 10*3/uL POC Glucose (mg/dL) 121 H (75-99) mg/dL Microbiology - Last 24 Hours (Table) 12/17/20 08:00 Urine Culture - Final Urine,Clean Catch Escherichia coli Assessment and Plan Plan: -Acute severe hypoxic respiratory failure Secondary to Covid 19 pneumonia: Initially Requiring BiPAP. Has completed the Remdesivir and has received convalescent plasma. currently maintained on oral prednisone and being titrated down. Prednisone now at 10 mg daily -Possible acute urinary tract infection due to indwelling Murphy catheter, initiated on ceftriaxone and awaiting urine cultures, preliminary showing gram- negative bacilli -Severe thrombocytopenia possible drug-induced and also related to oral infection, improving -Chronic persistent asthma mild acute exacerbation secondary to Covid 19. Continued on oral steroids and Symbicort and breathing treatments. -Hyperlipidemia -Hypothyroidism -hypokalemia, improved -History of gout. Not in exacerbation -Peripheral edema secondary to chronic venous stasis -Hiatal hernia with gastroesophageal reflux disease patient was resumed on Prilosec -GI prophylaxis -DVT prophylaxis. early ambulation -full code Plan: Patient will be continued on current oxygen via nasal cannula and titrate down FiO2 as tolerated. Currently on 4L high flow. continue with incentive spirometer. Continued on oral steroids and breathing treatments as needed. Prednisone titrating down. Patient had an enema and was able to have a bowel movement. Patient states she feels much better. Multiple medical consultations following. Continue to encourage increasing activity as tolerated. Patient currently maintained on IV ceftriaxone for possible urinary tract infection and will await cultures. Preliminary cultures showing E. coli which are pansensitive. Discharge tomorrow to home with home care
[2020-12-20] MEDS ORDERED: NYSTATIN 100,000 UNIT/ML SUSP 500,000 UNIT/5 ML CUP PO SCH (14:00)
[2020-12-20 14:34] VITALS: BMI 32.5
[2020-12-20 17:30] LABS: Glucose,Whole Blood 75 mg/dL (75-99)
[2020-12-20] MEDS: GABAPENTIN 300 MG CAP PO SCH (19:34)
[2020-12-20] MEDS: ATORVASTATIN 40 MG TAB PO SCH (19:34)
[2020-12-20] MEDS: PRAMIPEXOLE 0.5 MG TAB PO SCH (19:35)
[2020-12-20] MEDS: MELATONIN 3 MG TABLET PO SCH (19:35)
[2020-12-20] MEDS: THEOPHYLLINE 24 HOUR 300 MG CAP.ER.24H PO SCH (19:35)
[2020-12-20] MEDS: MONTELUKAST 10 MG TAB PO SCH (19:35)
[2020-12-20 20:32] LABS: Glucose,Whole Blood 148 mg/dL (75-99)
[2020-12-21] MEDS: ACETAMINOPHEN TAB 325 MG TAB PO PRN (03:51)
[2020-12-21] MEDS: LEVOTHYROXINE 75 MCG TAB PO SCH (05:21)
[2020-12-21] MEDS: SALT AND SODA MOUTHWASH 1,000 ML PO SCH ×2 (05:22→11:52)
[2020-12-21 06:49] LABS: Glucose,Whole Blood 79 mg/dL (75-99)
[2020-12-21] MEDS: INSULIN ASPART (NovoLOG) 100 UNIT/ML VIAL SQ SCH ×2 (06:51→11:52)
[2020-12-21] MEDS: GABAPENTIN 100 MG CAP PO SCH ×2 (06:56→11:51)
[2020-12-21] MEDS: ZINC SULFATE 220 MG CAP PO SCH (06:57)
[2020-12-21] MEDS: TAMSULOSIN 0.4 MG CAP.ER.24H PO SCH (06:57)
[2020-12-21] MEDS: SUCRALFATE 1 GM TAB PO SCH ×2 (06:57→11:51)
[2020-12-21] MEDS: ASCORBIC ACID 500 MG TAB PO SCH (06:57)
[2020-12-21] MEDS: predniSONE 10 MG TAB PO SCH (06:57)
[2020-12-21] MEDS: FLUCONAZOLE IN NACL,ISO-OSM 100 MG in SALINE 1 50ML.BAG IVPB SCH (06:58)
[2020-12-21] MEDS: SODIUM CHLORIDE TAB 1 GM TAB PO SCH (06:59)
[2020-12-21 08:06] VITALS: BP 143/92; PULSE 96; RESP 19; TEMP 97.5
[2020-12-21] MEDS: MAG HYDROX/AL HYDROX/SIMETH 30 ML, LIDOCAINE VISCOUS 30 ML, diphenhydrAMINE ELIXIR 75 M... PO SCH ×4 (08:15)
[2020-12-21 09:07] LABS: Basophils # (A) 0.01 X 10*3/uL (0.00-0.10); Basophils % (A) 0.2 %; Eosinophils # (A) 0.18 X 10*3/uL (0.04-0.35); Eosinophils % (A) 4.3 %; HGB 8.4 g/dL (12.0-15.0); Lymphocytes # (A) 1.02 X 10*3/uL (0.90-5.00); Lymphocytes % (A) 24.3 %; MCH 28.8 pg (27.0-32.0); MCHC 31.1 g/dL (32.0-37.0); MCV 92.5 fL (80.0-97.0); Mean Platelet Volume 10.3 fL (9.5-12.2); Monocytes # (A) 0.33 X 10*3/uL (0.20-1.00); Monocytes % (A) 7.9 %; Neutrophils # (A) 2.64 X 10*3/uL (1.80-7.70); Neutrophils % (A) 62.8 %; Platelet Count 151 X 10*3/uL (140-440); RBC 2.92 X 10*6/uL (4.10-5.20); RDW 16.7 % (11.5-14.5)
[2020-12-21] MEDS: SYMBICORT 160-4.5 MCG INHALER INHALATION SCH (09:25)
[2020-12-21] MEDS: TIOTROPIUM 2.5 MCG INHALER INHALATION SCH (09:25)
[2020-12-21] MEDS: ALBUTEROL HFA INHALER INHALATION SCH ×2 (09:25→12:15)
[2020-12-21 10:10] LABS: Anion Gap 7.4 mmol/L (4.00-12.00); Carbon Dioxide 26.6 mmol/L (21.6-31.8); Potassium 3.1 mmol/L (3.5-5.5)
[2020-12-21 10:11] LABS: African American GFR (CKD) 132.1 (60.0-200.0); Albumin 3.2 g/dL (3.80-4.90); Albumin/Globulin Ratio 1.28 (1.60-3.17); Calcium 8.4 mg/dL (8.7-10.3); Globulin 2.5 g/dL (1.6-3.3); Total Bilirubin 0.3 mg/dL (0.2-1.2); Total Protein 5.7 g/dL (6.2-8.2)
[2020-12-21] MEDS ORDERED: Potassium Replacement Protocol 1 EACH MISC MISCELLANE PRN (10:13)
[2020-12-21] MEDS: POTASSIUM CHLORIDE ER 20 MEQ TAB.ER PO SCH ×2 (10:19→11:51)
[2020-12-21 11:37] LABS: Glucose,Whole Blood 127 mg/dL (75-99)
--- NOTE | 2020-12-21 11:44 | P.PN ---
Subjective Progress Note Date: 12/21/20 Principal diagnosis: 60-year-old here patient hospitalized for COVID 19 related pneumonia and hypoxemia. The patient was found to have a low oxygen saturation. She was diagnosed having COVID 19 on 11/20/2020. However, her symptoms started approximately a week prior to that as the patient started having generalized weakness, fever and chills. In the hospital at [place], she was found to be hypoxic and she was placed on 15 L of oxygen by nasal cannula. She was started on Decadron and following that she was transferred to [facility] on 11/20/2020 for further evaluation. On today's evaluation the patient remains on 15 L of oxygen by nasal cannula. Laboratory markers show a LDH of 1482, her CRP is 239, her pro-calcitonin level is at 1.28, her white cell count is at 4.5 and the patient has a lymphopenia with a lymphocyte count of 0.7. The electrolytes all within normal limits. Renal function is within normal limits. Glucose slightly elevated at 235. The chest x-ray is showing bilateral pulmonary infiltrates mainly involving the left lung and or significantly in the right upper lobe area. The patient is known to have COPD/asthma. The patient is also has history of hypothyroidism, hyperlipidemia and gout. She has history of hiatal hernia.. She is on Decadron 6 mg by mouth daily. She is on no DVT prophylaxis is receiving 40 mg of Lovenox her d-dimer level is at 0.36. On 11/22/2020 patient seen in follow-up in intensive care unit. She is awake and alert, oriented 3, she is currently on BiPAP support with pressures of 14/5 and FiO2 of 100%, and her SpO2 is a 99%. Patient states she doesn't feel significantly more short of breath, however she tachypneic with a respiratory rate of 28 BPM, she has been febrile T-max of 10 1F, her pro-calcitonin came back elevated at 1.28 suggesting possibility of bacterial infection. Today we started her on Remdesivir, today's date to off treatment, her inflammatory markers are trending up, LDH is up to 1940, CRP is 143.6, d-dimer is 0.78, and is on prophylactic dose of Lovenox 40 mg daily, electrolytes and renal profile are unremarkable. O'Christiano is 9.2, hemoglobin is 11, platelet count is 322, neutrophils is 8.3, and in lymphocyte count is 0.5. Patient is on day 2 of high-dose IV steroids 20 mg daily. Patient is awake and alert, oriented 3, yesterday she reversed her CODE STATUS, from DO NOT RESUSCITATE to full code. On 11/23/2020 patient seen in follow-up in the intensive care unit, she remains on BiPAP support, has been very much dependent on it, and he desaturates rapidly even for short periods when the BiPAP mask is removed to give the patient oral medications, current BiPAP settings of 14/60 and FiO2 of 100%, her pulse ox is 93%. Awake and alert, she is oriented 3, she states her breathing is stable as long as she does not move and lays very still in bed. She is complaining of a dry cough, no chest discomfort, no palpitations. She is in sinus mechanism, bradycardic with a rate of 55 BPM, blood pressure is 116/66, not on any vasopressor support, her current IV fluids are 0.9 normal saline at a rate of 20 ML per hour. Patient's pattern has improved, T-max in last 24 hours 99.5F. Urinalysis was sent and shows no signs of infection, blood cultures will be sent today, last pro calcitonin yesterday was 1.29, repeat pro calcitonin has been sent and pending at this time, patient was empirically placed on azithromycin and Rocephin. Maintenance on high-dose IV steroids currently with Decadron 20 mg IV on the daily basis. Absent been reviewed, her d-dimer has trended up, and is at 5.13 today, her Lovenox dose will be adjusted 0.5 mg/kg of body weight twice daily, LDH is down slightly, 1670, CRP is relatively stable at 140.5. Electronic are within normal limits, patient is mildly prerenal, BUN is 30 creatinine 0.74, she also remains on oral dose of Lasix and she has had very limited oral intake. She has only been able to take one or 2 sips of oral liquids and she states things do not taste right. White blood cell count is 6.5, hemoglobin is 10.5. His chest x-ray has been reviewed and diffuse increasing groundglass opacities. I discussed the patient's CODE STATUS with her, and she is agreeable to CPR, intubation, defibrillation, CODE STATUS will be changed to full code On 12/04/2020 patient seen in follow-up in the intensive care unit, she is off the BiPAP support, and currently on high flow oxygen per Airvo 60 L/m and FiO2 of 70%, with a pulse ox between 92-94%, she is breathing comfortably, denies any chest discomfort, she sitting up in a chair, she looks comfortable, she has had no fever or chills. Today's chest x-ray shows coarse infiltrates bilaterally with slight interval progression. Patient is tolerating oral diet. She is off the TPN. She is on 0.9 normal saline at a rate of 10 ML per hour, today's labs have been reviewed, d-dimer is improved from a few days back and is down to 6.70, patient is on Lovenox 40 mg twice a day, white blood cell count is 9.1, hemoglobin is 10.8, sodium is 134, potassium is 4.4, chloride is 96, CO2 is 34, B1 is 20, creatinine 0.64 LDH is 1660, CRP is less than 5. Patient remains on daily dose of IV Lasix, colchicine, Pepcid 20 mg twice a day, bronchodilators, IV Solu-Medrol 40 mg every 8 hours On 12/05/2020 patient is seen in follow-up in the intensive care unit, she ashwin ins on high flow oxygen per Airvo at 60 L/m and FiO2 of 75%, in the night her FiO2 have to be bumped up a little bit from a 70% because of an episode of desaturation. She also required 4 hours on BiPAP support. However this morning patient appears to be calm and comfortable, sitting up in the recliner, in her pulse ox on the Airvo at previously mentioned settings is 98-100%, she is breathing comfortaby. Patient is awake and alert, oriented 3, no altered mentation, she is in sinus mechanism, she is on 0.9 at 10 ML per hour, no other drips, she's been afebrile, vital signs have been stable. Chest x-ray has been reviewed, and it shows patchy perihilar and basilar infiltrates persistence wi thout significant change. She remains on once daily dose of Lasix, and she is in -1090 mL fluid balance over the last 24 hours. She has been tolerating oral intake, no nausea vomiting or abdominal pain. Currently patient remains on IV steroids with Solu-Medrol 40 mg every 8 hours, colchicine, vitamin C D and zinc, melatonin, and bronchodilators. Today's d-dimer is 7.58. And patient remains on Lovenox at 40 mg twice daily which is 0.5 mg/kg of body weight twice daily. Patient also continues on Zosyn for empiric antibiotic coverage. Blood cultures have shown no growth. Follow-up LDH is trending down on today's labs and is down to 1370, CRP is less than 5. On 12/06/2020 patient seen in follow-up in intensive care unit, patient remains on Airvo at 60L and Fio2 75%. Satting between 88-91%, did require BiPap support last night for a few hours, currently back on Airvo. Patient is breathing comfortably, no acute distress, no chest discomfort. No fever, or chills. Patient is currently on 0.9 NS at 10 ml/hr. patient remains on Lasix, she is in -1.8 L fluid balance over the last 24 hours, however her chest x-ray shows worsening airspace disease, and pulmonary edema. Blood pressure has been stable, today's labs have been reviewed, showing serum sodium of 135, potassium is 4.3, chloride is 97, CO2 is 24, B1 is 24, creatinine 0.64. Proalcitonin level came back negative, we can stop the Zosyn cultures are negative. No fever or chills. No nausea vomiting diarrhea. On 12/07/2020 patient seen in follow-up in intensive care unit, she remains on high flow oxygen per Airvo at 60 L, and FiO2 of 70%, and her pulse ox is 90-91%, looks fairly comfortable, she is sitting up on the edge of the bed, appears to be in no acute distress, she is getting ready to eat breakfast this morning, she has been afebrile, vital signs have been stable. her chest x-ray today showed diffuse increased lung markings more focal in the right lower lobe, patient has received increased dose of Lasix, and her chest x-ray shows better aeration compared to yesterday's exam.today's labs have been reviewed, her d-dimer is trending down, down to 5.40, white count is 10.2, hemoglobin is 11.4, sodium is 134, potassium is 3.3, chloride 96, CO2 is 23, BUN is 26 creatinine 0.64. LDH is 1300, CRP is less than 5, blood culture has shown no growth. On 12/13/2020 patient seen in follow-up in intensive care unit, she is currently down to 15 L per simple high flow nasal cannula, pulse ox is 92-93%, hemodyna mics she stable, she is afebrile. There is a bit fatigued, but no acute distress, lung sounds revealed coarse inspiratory crackles over right lower lobe, relatively clear in the left lung. Does have a congested loose cough, no wheezing, she is on albuterol and Symbicort as, she remains on oral prednisone 40 mg once daily, but can further cut back to 20 mg daily. 0.9 normal saline at a rate of 20 ML per hour, labs reviewed, showing blood cell count of 10.9, hemoglobin is 10.8, platelet count is 8, patient so far transfused 2 units of platelets, no signs of bleeding, serum sodium is down to 127, patient had been on IV diuretics, which we will place on hold, potassium 3.2, chloride is 91, CO2 33, B1 is 23 creatinine 0.57, patient is tolerating oral intake, no nausea vomiting or diarrhea, we'll give the patient is small fluid bolus. And has developed significant ulceration and thrush in her oral cavity and tongue. Receiving Cheo's solution, and nystatin swish and swallow, we will add Diflucan for oral candidiasis as well. She is breathing comfortably, she appears fatigued, but she is in good spirits. On 12/18/2000 patient seen in follow-up on medical floor, she is currently down to 6 L, her pulse ox is between 92-94%, she is awake and alert, in no acute distress, is weak, but breathing comfortably, she states overall she is feeling better, no fever or chills. The count is improving, up to 83,000 today, no bleeding. Last chest x-ray on 12/16/2020 showed worsening bilateral diffuse airspace disease and low lung volumes. Patient is working on incentive spirometer. Her recheck for coronavirus PCR was negative, urinalysis showed signs of urinary tract infection for which patient was started on Rocephin, urine culture has been sent and is pending at this time. No new labs today, LDH is 335, CRP is less than 0.4. Prednisone is down to 10 mg daily On 12/19/2020 patient seen in follow-up on medical floor, she continues to improve, she remains on 6 L of oxygen her pulse ox of 93-95%, we dropped FiO2 down to 5 L, she is breathing comfortably, vital signs have been stable, she's been afebrile, she is walking to the bathroom, but appears weak. Follow-up chest x-ray today showed improvement of a diffuse bilateral lung infiltrate. We started her on empiric Rocephin for urinary tract infection, urine culture is starting to grow gram-negative bacilli, fungal culture is pending, patient continues on nebulized bronchodilators, she is down to 10 mg of prednisone. No altered mentation, she is tolerating oral intake, no nausea or vomiting. She is adamant about going home after discharge, she does not want to consider ECF for rehabilitation. Today's labs have been reviewed On 12/20/2020 patient seen in follow-up on medical floor, she is awake and alert, she's had no acute events overnight, breathing comfortably. She is on 4 L of oxygen pulse ox is 93-95%, hemodynamics are stable, she has had no fever or chills. Today's labs have been noted, hemoglobin is 8.4, white blood cell count is 4.7, lymphocyte count is 0.7. She remains on fluconazole for oral candidiasis, and Rocephin for possibility of urinary tract infection. Urine culture did show E. coli. Patient is weak, but able to ambulate to the bathroom, she feels that she is getting stronger she can handle herself at home, and she is insisting on going home with help from her daughter. She is had no worsening dyspnea, no cognitive chest pain, she is rating oral intake, no nausea vomiting or diarrhea, vitals have been stable. On 12/21/2020 patient seen in follow-up. She is awake and alert, in no acute distress, she is currently on 4 L of oxygen, she is doing well, continues to improve, remains generally weak, she is tolerating in relation in the room, she does get short of breath with exertion, however recovers with rest. Afebrile, completed chest discomfort, no cough or phlegm production. Her voice is still muffled related to oral candidiasis, she remains on Diflucan, and she remains on Rocephin for urinary tract infection, urine culture resulted in E. coli. Today's labs have been reviewed, showing white blood cell count of 4.2, hemoglobin is 8.4, platelet count is up to 151, potassium 3.1, the rest of electrolytes and renal profile were unremarkable. Objective - Vital Signs Vital signs: Vital Signs Temp 97.5 F L 12/21/20 08:00 Pulse 96 12/21/20 08:00 Resp 19 12/21/20 08:00 BP 143/92 12/21/20 08:00 Pulse Ox 95 12/21/20 09:25 Intake & Output 12/20/20 12/21/20 12/21/20 18:59 06:59 18:59 Weight 75.5 kg 75.5 kg Other: Voiding Method Bedside Commode Bedside Commode Bedside Commode # Voids 1 # Bowel Movements 1 - Exam GENERAL EXAM: Alert, pleasant, 60-year-old white female on 4 L of oxygen per simple high flow nasal cannula 93% comfortable in no apparent distress. Patient has a muffled voice related to significant oral candidiasis HEAD: Normocephalic/atraumatic. EYES: Normal reaction of pupils, equal size. Conjunctiva pink, sclera white. NOSE: Clear with pink turbinates. THROAT: No erythema or exudates. NECK: No masses, no JVD, no thyroid enlargement, no adenopathy. CHEST: No chest wall deformity. Symmetrical expansion. LUNGS: Equal air entry with diffuse crackles right lower lobe, clear left lung CVS: Regular rate and rhythm, normal S1 and S2, no gallops, no murmurs, no rubs ABDOMEN: Soft, nontender. No hepatosplenomegaly, normal bowel sounds, no guarding or rigidity. EXTREMITIES: No clubbing, no edema, no cyanosis, 2+ pulses and upper and lower extremities. MUSCULOSKELETAL: Muscle strength and tone normal. SPINE: No scoliosis or deformity SKIN: No rashes CENTRAL NERVOUS SYSTEM: Alert and oriented -3. No focal deficits, tone is normal in all 4 extremities. PSYCHIATRIC: Alert and oriented -3. Appropriate affect. Intact judgment and insight. - Labs CBC & Chem 7: 12/21/20 05:00 12/21/20 05:00 Labs: Abnormal Lab Results - Last 24 Hours (Table) 12/20/20 12/21/20 12/21/20 Range/Units 20:29 05:00 05:00 WBC 4.20 L (4.50-10.00) X 10*3/uL RBC 2.92 L (4.10-5.20) X 10*6/uL Hgb 8.4 L (12.0-15.0) g/dL Hct 27.0 L (37.2-46.3) % MCHC 31.1 L (32.0-37.0) g/dL RDW 16.7 H (11.5-14.5) % Potassium 3.1 L (3.5-5.5) mmol/L BUN 8.0 L (9.0-27.0) mg/dL Creatinine 0.4 L (0.6-1.5) mg/dL POC Glucose (mg/dL) 148 H (75-99) mg/dL Calcium 8.4 L (8.7-10.3) mg/dL Total Protein 5.7 L (6.2-8.2) g/dL Albumin 3.20 L (3.80-4.90) g/dL Albumin/Globulin Ratio 1.28 L (1.60-3.17) g/dL 12/21/20 Range/Units 11:34 WBC (4.50-10.00) X 10*3/uL RBC (4.10-5.20) X 10*6/uL Hgb (12.0-15.0) g/dL Hct (37.2-46.3) % MCHC (32.0-37.0) g/dL RDW (11.5-14.5) % Potassium (3.5-5.5) mmol/L BUN (9.0-27.0) mg/dL Creatinine (0.6-1.5) mg/dL POC Glucose (mg/dL) 127 H (75-99) mg/dL Calcium (8.7-10.3) mg/dL Total Protein (6.2-8.2) g/dL Albumin (3.80-4.90) g/dL Albumin/Globulin Ratio (1.60-3.17) g/dL Assessment and Plan Plan: Assessment: #1. acute Covid 19 related pneumonia with bilateral pulmonary infiltrates most significant in the right upper lobe and the left lung seems to be diffusely infiltrated #2. acute severe hypoxic respiratory failure, related to the above. She received Remdesivir treatment on 11/21/2020, and high-dose IV Decadron on 11/21/2020, vision received 2 doses of Tocilizumab. Improving and patient is currently down to 4 L of oxygen #3. Acute urinary tract infection related to E. coli #4. Thrombocytopenia, probably drug induced, improving #5. chronic persistent bronchial asthma with an FEV1 of 82-87% on outpatient basis maintained on Symbicort #6. steroid-induced hyperglycemia #7. hypertension #8. hypothyroidism #9. Osteoarthritis and gout #10. Peripheral neuropathy involving lower extremities #11. Peripheral vascular disease #12. Chronic normocytic anemia #13. More than [id number] smoking history patient is currently an ex-smoker hiatal hernia with reflux #14. Hyponatremia related to diuretic therapy, improved Plan: Continue current medical treatment, continue weaning FiO2, increase activity as tolerated, platelet count has improved, there is no evidence of bleeding, no altered mentation, vital signs are stable, no fever or chills, from pulmonary perspective patient can be considered for discharge home, she can continue on 10 mg of prednisone on a daily basis until she can see Dr. Tanner in the office in 10-14 days. I performed a history & physical examination of the patient and discussed their management with my nurse practitioner, Cate Madsen. I reviewed the nurse practitioner's note and agree with the documented findings and plan of care. Lung sounds are positive for diffuse crackles throughout the lung ruiz. The findings and the impression was discussed with the patient. I attest to the documentation by the nurse practitioner. Time with Patient: Less than 30
--- NOTE | 2020-12-22 14:07 | P.DS ---
Providers Date of admission: 11/20/20 09:40 Expected date of discharge: 12/21/20 Attending physician: Sofia Conway Consults: 11/20/20 09:40 Consult Physician Urgent Consulting Provider: Oscar Elena Consult Reason/Comments: COVID pneumonia Do you want consulting provider notified?: Yes 12/11/20 08:41 Consult Physician Urgent Consulting Provider: Dio Lee Consult Reason/Comments: thrombocytopenia Do you want consulting provider notified?: Yes Primary care physician: John Reddy Hospital Course: Final diagnosis -Acute severe hypoxic respiratory failure Secondary to Covid 19 pneumonia -Possible acute urinary tract infection due to indwelling Murphy catheter, and cultures finalized showing E. coli -Severe thrombocytopenia possible drug-induced and also related to oral infection, improving -Chronic persistent asthma mild acute exacerbation secondary to Covid 19 -Hyperlipidemia -Hypothyroidism -hypokalemia, improved -History of gout. Not in exacerbation -Peripheral edema secondary to chronic venous stasis -Hiatal hernia with gastroesophageal reflux disease -GI prophylaxis -DVT prophylaxis -full code Discharge disposition Patient is being discharged in a stable condition with guarded prognosis to home. Patient will follow-up with Dr. Reddy in the outpatient setting upon discharge. Patient also instructed to follow-up with pulmonary and will co ntinue with home care in the outpatient setting. Total time taken is greater than 35 minutes. Hospital course This is a 60-year-old female who was recently admitted with Covid 19 pneumonia and was being closely monitored. She had prolonged hospitalization with slow improvement in respiratory status. Patient is currently maintained on 4 L of nasal cannula O2 and will continue in the outpatient setting. Patient instructed to follow-up with pulmonary along with primary care provider upon discharge. Patient was found to have a urinary tract infection with cultures finalizing showing E. coli and will continue on Ceftin for the next few days to complete the course. Patient is also continued on nystatin swish and swallow for oral thrush. Patient instructed to follow-up with primary care provider upon discharge. Patient will continue with home care in the outpatient setting as well and patient states she has her there to help with ADLs and making appointments. Currently no reports of chest pain, worsening shortness of breath, or palpitations. Patient is afebrile. No reports of nausea or vomiting and patient is tolerating diet. Patient will be discharged home today. On exam vital signs are stable. Temp is 97.5F, pulse is 96, respirations are 19, blood pressure is 143/92, oxygen saturation is 95% on 4 L via nasal cannula. Patient will require 4 L of oxygen secondary to Covid 19 with prolonged hospitalization. Cardio S1, S2 are muffled. Respiratory system shows diminished breath sounds at the bases with no wheezing or rhonchi noted. Abdomen is soft and nontender. Nervous system shows no focal deficits. Please refer to medication reconciliation sheet for a list of medications. Patient Condition at Discharge: Stable Plan - Discharge Summary Discharge Rx Participant: No New Discharge Prescriptions: New predniSONE 10 mg PO DAILY 30 Days #30 tab Petrolatum, White [Aquaphor] 1 applic TOPICAL BID PRN applic PRN Reason: Dry Skin Cefuroxime Axetil [Ceftin] 500 mg PO BID 3 Days #6 tab Lactulose [Cephulac] 20 gm PO DAILY PRN #240 ml PRN Reason: Constipation Tamsulosin [Flomax] 0.4 mg PO PC-BRKFST 30 Days #30 cap.er.24h Mag Hydrox/Al Hydrox/Simeth [Maalox] 30 ml PO TID #240 ml Nystatin 100,000 Unit/ml Susp [Mycostatin Oral Susp] 3,000,000 unit PO TID #120 ml Zinc Sulfate [Orazinc] 220 mg PO DAILY 30 Days #30 cap Sodium Chloride Tab 1 gm PO TID 30 Days #90 tab Tiotropium 2.5 Mcg/Puff [Spiriva Respimat 2.5 Mcg] 2 puff INHALATION RT-DAILY 30 Days #1 puff Acetaminophen Tab [Tylenol] 650 mg PO Q4HR PRN tab PRN Reason: Fever>101 Albuterol Inhaler [Ventolin Hfa Inhaler] 2 puff INHALATION RT-QID 30 Days #1 puff Ascorbic Acid [Vitamin C] 500 mg PO DAILY 30 Days #30 tab Lidocaine Viscous [Xylocaine Viscous 2%] 30 ml PO TID #240 ml Continue Montelukast Sodium [Singulair] 10 mg PO HS Gabapentin [Neurontin] 300 mg PO HS Theophylline 12 Hour [Ishan-Dur] 300 mg PO BID Omeprazole [PriLOSEC] 20 mg PO BID Budesonide/Formoterol Fumarate [Symbicort 160-4.5 Mcg Inhaler] 2 puff INHALATION RT-BID Allopurinol [Zyloprim] 600 mg PO QAM Sucralfate [Carafate] 1 gm PO QID Pramipexole [Mirapex] 0.5 mg PO HS Levalbuterol Hfa Inhaler [Xopenex Hfa Inhaler] 4 puff INHALATION RT-Q6H PRN PRN Reason: Shortness Of Breath Gabapentin [Neurontin] 100 mg PO BID@0800,1200 Simvastatin [Zocor] 80 mg PO HS Loratadine [Claritin] 10 mg PO DAILY Levothyroxine Sodium [Euthyrox] 75 mcg PO DAILY Ipratropium-Albuterol Nebulize [Duoneb 0.5 mg-3 mg/3 ml Soln] 3 ml INHALATION RT-QID Ergocalciferol (Vitamin D2) [Vitamin D2 (50,000 Iu)] 1,250 mcg PO Q14D Effer-K 25meq 25 meq PO QID Discontinued Meloxicam [Mobic] 15 mg PO QAM Colchicine [Colcrys] 0.6 mg PO DAILY Furosemide [Lasix] 40 mg PO BID Discharge Medication List Allopurinol [Zyloprim] 600 mg PO QAM 04/13/15 [History] Budesonide/Formoterol Fumarate [Symbicort 160-4.5 Mcg Inhaler] 2 puff INHALATION RT-BID 04/13/15 [History] Gabapentin [Neurontin] 300 mg PO HS 04/13/15 [History] Montelukast Sodium [Singulair] 10 mg PO HS 04/13/15 [History] Omeprazole [PriLOSEC] 20 mg PO BID 04/13/15 [History] Sucralfate [Carafate] 1 gm PO QID 04/13/15 [History] Theophylline 12 Hour [Ishan-Dur] 300 mg PO BID 04/13/15 [History] Pramipexole [Mirapex] 0.5 mg PO HS 07/20/18 [History] Levalbuterol Hfa Inhaler [Xopenex Hfa Inhaler] 4 puff INHALATION RT-Q6H PRN 07/22/19 [History] Gabapentin [Neurontin] 100 mg PO BID@0800,1200 07/27/19 [History] Effer-K 25meq 25 meq PO QID 11/20/20 [History] Ergocalciferol (Vitamin D2) [Vitamin D2 (50,000 Iu)] 1,250 mcg PO Q14D 11/20/20 [History] Ipratropium-Albuterol Nebulize [Duoneb 0.5 mg-3 mg/3 ml Soln] 3 ml INHALATION RT-QID 11/20/20 [History] Levothyroxine Sodium [Euthyrox] 75 mcg PO DAILY 11/20/20 [History] Loratadine [Claritin] 10 mg PO DAILY 11/20/20 [History] Simvastatin [Zocor] 80 mg PO HS 11/20/20 [History] Acetaminophen Tab [Tylenol] 650 mg PO Q4HR PRN tab 12/21/20 [Rx] Albuterol Inhaler [Ventolin Hfa Inhaler] 2 puff INHALATION RT-QID 30 Days #1 puff 12/21/20 [Rx] Ascorbic Acid [Vitamin C] 500 mg PO DAILY 30 Days #30 tab 12/21/20 [Rx] Cefuroxime Axetil [Ceftin] 500 mg PO BID 3 Days #6 tab 12/21/20 [Rx] Lactulose [Cephulac] 20 gm PO DAILY PRN #240 ml 12/21/20 [Rx] Lidocaine Viscous [Xylocaine Viscous 2%] 30 ml PO TID #240 ml 12/21/20 [Rx] Mag Hydrox/Al Hydrox/Simeth [Maalox] 30 ml PO TID #240 ml 12/21/20 [Rx] Nystatin 100,000 Unit/ml Susp [Mycostatin Oral Susp] 3,000,000 unit PO TID #120 ml 12/21/20 [Rx] Petrolatum, White [Aquaphor] 1 applic TOPICAL BID PRN applic 12/21/20 [Rx] Sodium Chloride Tab 1 gm PO TID 30 Days #90 tab 12/21/20 [Rx] Tamsulosin [Flomax] 0.4 mg PO PC-BRKFST 30 Days #30 cap.er.24h 12/21/20 [Rx] Tiotropium 2.5 Mcg/Puff [Spiriva Respimat 2.5 Mcg] 2 puff INHALATION RT-DAILY 30 Days #1 puff 12/21/20 [Rx] Zinc Sulfate [Orazinc] 220 mg PO DAILY 30 Days #30 cap 12/21/20 [Rx] predniSONE 10 mg PO DAILY 30 Days #30 tab 12/21/20 [Rx] Follow up Appointment(s)/Referral(s): Shanae Garcia MD [STAFF PHYSICIAN] - 01/16/21 1:45 pm John Reddy MD [Primary Care Provider] - 12/22/20 12:00 pm (Appointment with [facility]) [facility] , [REFERRING] - As Needed Cameron Mustafa [NON-STAFF] - Patient Instructions/Handouts: Coronavirus Disease 2019 (COVID-19), Viral Pneumonia (DC), Urinary Tract Infection in Women (DC), Using Oxygen at Home (DC), Thrombocytopenia (DC) Activity/Diet/Wound Care/Special Instructions: Activity Limited until follow-up Follow-up with primary care provider Follow-up with pulmonary continue with antibiotics for 3 days Discharge Disposition: HOME WITH HOME HEALTH SERVICES
== END 2020-12-21 13:47 | disposition home health service (06) | DRG 177 ==
LOC: EC 07:46 → 3SCARD 09:40 → 2SICU 11-21 13:36 → 4SSUR 12-15 18:46
PROVIDERS: ADMIT Internal Medicine; ATTEND Internal Medicine
PROC: 5A09557 Assistance with Respiratory Ventilation, Greater than 96 Consecutive Hours, Continuous Positive Airway Pressure (ICD-10-PCS; principal; 2020-11-20)
PROC: 5A0955A Assistance with Respiratory Ventilation, Greater than 96 Consecutive Hours, High Flow/Velocity Cannula (ICD-10-PCS; 2020-11-20)
PROC: XW033E5 Introduction of Remdesivir Anti-infective into Peripheral Vein, Percutaneous Approach, New Technology Group 5 (ICD-10-PCS; 2020-11-21)
PROC: XW033H5 Introduction of Tocilizumab into Peripheral Vein, Percutaneous Approach, New Technology Group 5 (ICD-10-PCS; 2020-11-22)
PROC: 3E0436Z Introduction of Nutritional Substance into Central Vein, Percutaneous Approach (ICD-10-PCS; 2020-11-24)
PROC: 02HV33Z Insertion of Infusion Device into Superior Vena Cava, Percutaneous Approach (ICD-10-PCS; 2020-11-24)
PROC: XW13325 Transfusion of Convalescent Plasma (Nonautologous) into Peripheral Vein, Percutaneous Approach, New Technology Group 5 (ICD-10-PCS; 2020-11-30)
PROC: 30243R1 Transfusion of Nonautologous Platelets into Central Vein, Percutaneous Approach (ICD-10-PCS; 2020-12-11)
PROC: 30233S1 Transfusion of Nonautologous Globulin into Peripheral Vein, Percutaneous Approach (ICD-10-PCS; 2020-12-13)
DX: U07.1 COVID-19 (principal); J12.82 Pneumonia due to coronavirus disease 2019; N39.0 Urinary tract infection, site not specified; T83.511A Infection and inflammatory reaction due to indwelling urethral catheter, initial encounter; J96.01 Acute respiratory failure with hypoxia; J15.9 Unspecified bacterial pneumonia; D69.3 Immune thrombocytopenic purpura; B37.0 Candidal stomatitis; J81.1 Chronic pulmonary edema; E87.1 Hypo-osmolality and hyponatremia; J45.31 Mild persistent asthma with (acute) exacerbation; J44.0 Chronic obstructive pulmonary disease with (acute) lower respiratory infection; J44.1 Chronic obstructive pulmonary disease with (acute) exacerbation; I73.9 Peripheral vascular disease, unspecified; E78.5 Hyperlipidemia, unspecified; K21.9 Gastro-esophageal reflux disease without esophagitis; M15.9 Polyosteoarthritis, unspecified; M1A.9XX0 Chronic gout, unspecified, without tophus (tophi); G62.9 Polyneuropathy, unspecified; E03.9 Hypothyroidism, unspecified; I83.90 Asymptomatic varicose veins of unspecified lower extremity; E66.9 Obesity, unspecified; K44.9 Diaphragmatic hernia without obstruction or gangrene; R73.9 Hyperglycemia, unspecified; I10 Essential (primary) hypertension; K12.30 Oral mucositis (ulcerative), unspecified; I87.8 Other specified disorders of veins; D72.810 Lymphocytopenia; R00.1 Bradycardia, unspecified; E16.2 Hypoglycemia, unspecified; D64.9 Anemia, unspecified; E87.6 Hypokalemia; R33.9 Retention of urine, unspecified; R04.0 Epistaxis; T38.0X5A Adverse effect of glucocorticoids and synthetic analogues, initial encounter; T50.1X5A Adverse effect of loop [high-ceiling] diuretics, initial encounter; B96.20 Unspecified Escherichia coli [E. coli] as the cause of diseases classified elsewhere; Z79.899 Other long term (current) drug therapy; Z79.51 Long term (current) use of inhaled steroids; Z79.890 Hormone replacement therapy; Z87.01 Personal history of pneumonia (recurrent); Z90.710 Acquired absence of both cervix and uterus; Z98.890 Other specified postprocedural states; Z87.891 Personal history of nicotine dependence; Z68.35 Body mass index [BMI] 35.0-35.9, adult; Z88.6 Allergy status to analgesic agent; Z91.011 Allergy to milk products; Z80.1 Family history of malignant neoplasm of trachea, bronchus and lung; Z80.52 Family history of malignant neoplasm of bladder
CPT/HCPCS: 36573; 71045; 74022; 80048; 80053; 81001; 82330; 82550; 82728; 83615; 83735; 83880; 84100; 84132; 84145; 84478; 85025; 85027; 85379; 85384; 85397; 85610; 85730; 86022; 86140; 86738; 86850; 86900; 86901; 87040; 87077; 87086; 87186; 87449; 87635; 93306; 94640; 94660; 94760; 99285

== ENCOUNTER → 2021-02-06 | Outpatient (CLI) | payer OTHER ==
[2021-02-06 21:28] LABS: African American GFR (CKD) 71.4 (60.0-200.0); Albumin 4.5 g/dL (3.80-4.90); Albumin/Globulin Ratio 2.25 (1.60-3.17); Anion Gap 9.8 mmol/L (4.00-12.00); Calcium 9.7 mg/dL (8.7-10.3); Carbon Dioxide 31.2 mmol/L (21.6-31.8); Non-African American GFR(CKD) 61.6 (60.0-200.0); Total Bilirubin 0.3 mg/dL (0.3-1.2); Total Protein 6.5 g/dL (6.2-8.2)
== END | disposition home or self-care (01) ==
LOC: LABWHC1 07:42
PROVIDERS: ATTEND Internal Medicine Endocrinology, Diabetes & Metabolism
DX: E55.9 Vitamin D deficiency, unspecified (principal); E21.3 Hyperparathyroidism, unspecified
CPT/HCPCS: 36415; 80053; 82306; 83970

== ENCOUNTER → 2021-08-02 | Outpatient (CLI) | payer OTHER ==
[2021-08-03 01:43] LABS: ALT 18 U/L (8-44); AST 16 U/L (13-35); African American GFR (CKD) 78.8 (60.0-200.0); Albumin 4.6 g/dL (3.8-4.9); Alkaline Phosphatase 108 U/L (41-126); BUN/Creat Ratio 29.72 Ratio (12.00-20.00); Blood Urea Nitrogen 27.4 mg/dL (9.0-27.0); Calcium 10.4 mg/dL (8.7-10.3); Carbon Dioxide 23.8 mmol/L (21.6-31.8); Chloride 98 mmol/L (96-109); Globulin 1.9 g/dL (1.6-3.3); Glucose 90 mg/dL (70-110); Potassium 3.3 mmol/L (3.5-5.5); Sodium 137 mmol/L (135-145); Total Bilirubin <0.20 mg/dL (0.30-1.20); Total Protein 6.5 g/dL (6.2-8.2)
== END | disposition home or self-care (01) ==
LOC: LABWHC1 10:35
PROVIDERS: ATTEND Internal Medicine Endocrinology, Diabetes & Metabolism
DX: E21.3 Hyperparathyroidism, unspecified (principal); E55.9 Vitamin D deficiency, unspecified
CPT/HCPCS: 36415; 80053; 82306; 83970

== ENCOUNTER → 2021-12-03 | Outpatient (CLI) | payer OTHER ==
[2021-12-03 19:03] LABS: African American GFR (CKD) 72.1 (60.0-200.0); Albumin 4.7 g/dL (3.8-4.9); Albumin/Globulin Ratio 2.08 (1.60-3.17); Anion Gap 14.4 mmol/L (10.00-18.00); BUN/Creat Ratio 15.21 Ratio (12.00-20.00); Calcium 10.6 mg/dL (8.7-10.3); Carbon Dioxide 24.4 mmol/L (20.0-27.5); Globulin 2.3 g/dL (1.6-3.3); Non-African American GFR(CKD) 62.2 (60.0-200.0); Potassium 4.6 mmol/L (3.5-5.5); Total Bilirubin 0.4 mg/dL (0.30-1.20)
== END | disposition home or self-care (01) ==
LOC: LABWHC1 14:02
PROVIDERS: ATTEND Internal Medicine Endocrinology, Diabetes & Metabolism
DX: E21.3 Hyperparathyroidism, unspecified (principal)
CPT/HCPCS: 36415; 80053; 82306; 83970

== ENCOUNTER → 2022-04-10 | Outpatient (CLI) | payer OTHER ==
[2022-04-10 23:22] LABS: Immunoglobulin A 87.6 mg/dL (60.0-350.0)
[2022-04-11 13:20] LABS: Almond IgE <0.10 kU/L (<0.10); Almond IgE Class CLASS 0; Alt. alternata IgE Class CLASS 0; Alternaria alternata IgE <0.10 kU/L (<0.10); Cashew IgE <0.10 kU/L (<0.10); Cashew IgE Class CLASS 0; Pecan IgE <0.10 kU/L (<0.10); Pecan IgE Class CLASS 0; Pistachio IgE Class CLASS 0; Rye (Food) IgE <0.10 kU/L (<0.10); Rye (Food) IgE Class CLASS 0
[2022-04-11 13:21] LABS: Ragweed, Giant IgE <0.10 kU/L (<0.10); Ragweed, Giant IgE Class CLASS 0
[2022-04-11 14:49] LABS: Cat Epith & Dander IgE <0.10 kU/L; Egg White IgE <0.10 kU/L; Peanut IgE <0.10 kU/L; Ragweed,Common IgE <0.10 kU/L; Soybean IgE <0.10 kU/L; Walnut IgE (Food) <0.10 kU/L
== END | disposition home or self-care (01) ==
LOC: LABWHC1 12:44
PROVIDERS: ATTEND Allergy & Immunology
DX: J45.40 Moderate persistent asthma, uncomplicated (principal); K21.9 Gastro-esophageal reflux disease without esophagitis; T78.2XXA Anaphylactic shock, unspecified, initial encounter
CPT/HCPCS: 36415; 82784; 83516; 86003

== ENCOUNTER → 2022-04-10 | Outpatient (CLI) | payer OTHER ==
[2022-04-10 17:57] LABS: ALT 29 U/L (8-44); AST 22 U/L (13-35); African American GFR (CKD) 63.2 (60.0-200.0); Alkaline Phosphatase 95 U/L (41-126); BUN/Creat Ratio 21.27 Ratio (12.00-20.00); Blood Urea Nitrogen 23.4 mg/dL (9.0-27.0); Calcium 10.9 mg/dL (8.7-10.3); Carbon Dioxide 24.9 mmol/L (20.0-27.5); Chloride 102 mmol/L (96-109); Glucose 99 mg/dL (70-110); Non-African American GFR(CKD) 54.5 (60.0-200.0); Potassium 4.2 mmol/L (3.5-5.5); Sodium 141 mmol/L (135-145); Total Bilirubin <0.15 mg/dL (0.30-1.20)
== END | disposition home or self-care (01) ==
LOC: LABWHC1 07:46
PROVIDERS: ATTEND Internal Medicine Endocrinology, Diabetes & Metabolism
DX: E21.0 Primary hyperparathyroidism (principal)
CPT/HCPCS: 36415; 80053; 82306; 83970

== ENCOUNTER → 2022-04-30 | Outpatient (CLI) | payer OTHER ==
--- NOTE | 2022-04-30 15:58 | US ---
EXAMINATION TYPE: US thyroid st tissue head/neck DATE OF EXAM: 04/30/2022 COMPARISON: NONE CLINICAL HISTORY: 61-year-old female E04.1 THYROID NODULE. Pt states physician felt nodule on examina tion GLAND SIZE: Right Lobe: 4.0 x 1.4 x 1.6 cm Overall Parenchyma: heterogenous Left Lobe: 3.1 x 0.9 x 1.2 cm Overall Parenchyma: heterogeneous Isthmus Thickness: 0.5 cm NODULES RIGHT: # of nodules measured on right: 1 1. 0.4 X 0.4 x 0.4 cm, mid medial, solid or almost completely solid, hypoechoic TR 4 nodule, which is wider than tall, with ill-defined margins, without echogenic foci. Prior size: No prior LEFT: # of nodules measured on left: 1 1. 0.7 X 0.5 x 0.9 cm, lower, solid or almost completely solid, isoechoic TR3 nodule, which is wide r than tall, with ill-defined margins, without echogenic foci. Prior size: No prior ISTHMUS: # of nodules measured in the isthmus: 0 Screener And Blender notes: Bilateral neck scanned, no evidence of lymphadenopathy. IMPRESSION: A tiny 4 mm tear for nodule in the right lobe. Slightly larger 9 mm TR3 nodule in the left lobe. Foll ow-up can be performed. Neither meet criteria for FNA.
== END | disposition home or self-care (01) ==
LOC: RADUSWWP 07:53
PROVIDERS: ATTEND Allergy & Immunology
DX: E04.2 Nontoxic multinodular goiter (principal)
CPT/HCPCS: 76536

== ENCOUNTER → 2022-05-10 | Outpatient (CLI) | payer OTHER ==
[2022-05-10 13:32] LABS: Prothrombin Time 10.4 sec (9.0-12.0)
[2022-05-10 17:54] LABS: HCT 36.3 % (37.2-46.3); HGB 10.9 g/dL (12.0-15.0); MCH 27.7 pg (27.0-32.0); MCV 92.4 fL (80.0-97.0); Mean Platelet Volume 10.3 fL (9.5-12.2); NRBC Per 100 WBC 0 /100 WBCS (0.0-0.0); Platelet Count 283 X 10*3/uL (140-440); RBC 3.93 X 10*6/uL (4.10-5.20); RDW 15.1 % (11.5-14.5); WBC 5.64 X 10*3/uL (4.50-10.00)
[2022-05-10 18:15] LABS: Appearance,Urine Clear (Clear); Bilirubin,Urine Negative (Negative); Blood,Urine Negative (Negative); Color,Urine Yellow (Yellow); Ketones,Urine Negative (Negative); Nitrite,Urine Negative (Negative); Specific Gravity,Urine 1.011 (1.001-1.030); Urobilinogen,Urine 0.2 (0.2,1.0)
[2022-05-10 18:20] LABS: African American GFR (CKD) 54.2 (60.0-200.0); Albumin 4.6 g/dL (3.8-4.9); Albumin/Globulin Ratio 2.14 (1.60-3.17); Anion Gap 11.8 mmol/L (10.00-18.00); BUN/Creat Ratio 15.6 Ratio (12.00-20.00); Blood Urea Nitrogen 19.5 mg/dL (9.0-27.0); Calcium 10.1 mg/dL (8.7-10.3); Carbon Dioxide 22.1 mmol/L (20.0-27.5); Globulin 2.2 g/dL (1.6-3.3); Non-African American GFR(CKD) 46.7 (60.0-200.0); Potassium 3.4 mmol/L (3.5-5.5); Total Bilirubin 0.3 mg/dL (0.30-1.20); Total Protein 6.8 g/dL (6.2-8.2)
== END | disposition home or self-care (01) ==
LOC: LABPAT 10:31
PROVIDERS: ATTEND Orthopaedic Surgery
DX: Z01.812 Encounter for preprocedural laboratory examination (principal)
CPT/HCPCS: 80053; 81003; 85027; 85610; 85730; 87070

== ENCOUNTER 2022-05-28 05:31 | Day surgery (SDC) | payer OTHER ==
[2022-05-24 14:21] VITALS: BMI 37.0
[~2022-05-28 05:31] MED LIST changes: +ACETAMINOPHEN TAB 500 MG TAB PO PRN; +GABAPENTIN 300 MG CAP PO PRN; -LACTATED RINGERS 1,000 ML IV SCH; -LIDOCAINE 1% 20 ML VIAL (10MG/ML) FOR IV START INTRADERMA PRN; +MELOXICAM 7.5 MG TAB PO PRN; +TRANEXAMIC ACID IN NACL,ISO-OS 1,000 MG in SALINE 1 100ML.BAG IVPB PRN
[2022-05-28] MEDS ORDERED: ONDANSETRON 4 MG/2 ML VIAL IVP ONE (05:58)
[2022-05-28] MEDS ORDERED: LIDOCAINE 1% (10MG/ML) FOR IV START INTRADERMA PRN (05:58)
[2022-05-28] MEDS: LACTATED RINGERS 1,000 ML IV SCH (06:30)
[2022-05-28] MEDS ORDERED: DEXAMETHASONE SOD PHOSPHATE 4 MG/ML 1 ML VIAL IVP ONE (06:30)
[2022-05-28 06:34] LABS: Glucose,Whole Blood 105 mg/dL (70-110)
[2022-05-28] MEDS ORDERED: MIDAZOLAM 2 MG/2 ML VIAL IVP ONE (06:49)
[2022-05-28] MEDS ORDERED: HYDROmorphone 0.5 MG/0.5 ML SYRINGE IVP PRN ×3 (07:00→09:04)
[2022-05-28] MEDS ORDERED: MIDAZOLAM 2 MG/2 ML VIAL ONE (07:11)
[2022-05-28] MEDS ORDERED: TRANEXAMIC ACID IN NACL,ISO-OS 1,000 MG/100 ML BAG ONE (07:11)
[2022-05-28] MEDS ORDERED: PROPOFOL 10 MG/ML 20 ML VIAL IV ONE (07:11)
[2022-05-28] MEDS ORDERED: ROPIVACAINE 5 MG/ML 30 ML VIAL ONE (07:11)
[2022-05-28] MEDS ORDERED: fentaNYL (PF) 50 MCG/ML 2 ML AMP ONE (07:11)
[2022-05-28] MEDS ORDERED: PHENYLEPHRINE-0.9% NACL SYG 1,000 MCG/10 ML SYRINGE ONE (07:11)
--- NOTE | 2022-05-28 08:25 | P.OP ---
Date of Procedure: 05/28/22 Preoperative Diagnosis: Severe osteoarthritis right knee Postoperative Diagnosis: Severe osteoarthritis right knee Procedure(s) Performed: Right total hip arthroplasty Implants: [employer] Journey II CR Oxinium cruciate retaining femoral component size 4, right [employer] nonporous tibial baseplate size 3, right [employer] Journey II, XLPE Deep Dished articular insert, size 12 mm, Size 3-4, right [employer] Sharyn II resurfacing patellar component, oval, 29 mm All components were cemented using Palacos R bone cement The articulation is Oxinium on polyethylene Anesthesia: spinal Surgeon: Brian Batista Deburr Operator #1: Ryan Bueno Estimated Blood Loss (ml): 30 Pathology: other (Bone and cartilage) Condition: stable Disposition: PACU Indications for Procedure: After failure of conservative treatment we discussed the surgical and nonsurgical treatment options at length. Patient wishes to proceed with a total knee arthroplasty. Complications specific to this procedure were discussed at length, including but not limited to infection, bleeding, stiffness, and nerve injury. Covid-19 was also discussed at length with the patient, and they are aware of the current policies and procedures. The patient was given the option of delaying surgery, but they elect to proceed knowing these risks. Patient is aware of all these complications and informed consent was obtained Operative Findings: The operative findings are consistent with severe osteoarthritis of the right knee Description of Procedure: Patient was seen in the preoperative area and the consent was reviewed and the operative site was marked with a skin marker. The patient verified the procedure and the operative site. An adductor canal pain catheter and an iPACK block was placed by anesthesia in the preoperative area. The patient was then brought to the operating room and given preoperative antibiotics intravenously. A gram of transexamic acid was given intravenously. A spinal anesthetic was administered by the anesthesia department. A tourniquet was placed on the upper thigh and the lower extremity was prepped with chlorhexidine and draped in usual sterile fashion. A universal timeout was then performed which confirmed the patient's name, surgical site, ALLERGIES, and consent. The lower extremity was then exsanguinated and tourniquet was inflated to 250 mmHg. A standard anterior midline approach to the knee was performed. The skin and subcutaneous tissue were sharply dissected down to the patellar tendon. A medial parapatellar arthrotomy was then performed. The knee was then extended, the patellar was everted, and the knee was again flexed. The infra-patellar fat pad was removed in order to enhance exposure. The anterior horns of both menisci were excised, and a release was performed to the posterior medial aspect of the knee. On gross visual inspection, there was complete loss of articular cartilage in the medial and patellofemoral joint spaces. There was also significant cartilage damage in the lateral compartment. There were multiple periarticular osteophytes globally about the knee which were then removed with a Ronguer. The femoral canal was then opened with the 9.5 mm intramedullary drill. The 8 mm intramedullary fran was then inserted into the femoral canal with the distal femoral cutting guide set for 5 of valgus. The distal femoral cutting block was then pinned in place. The intramedullary fran was then removed, and the distal femur was then cut. The cutting block was then removed and the cut was checked for symmetry. The resected bone was then measured to confirm the appropriate distal femoral resection. Next, the sizing guide was then placed and set for 3 external rotation based off of the epicondylar axis and Whitesides line. Pins were then placed and the drill holes, and the femur was sized with the sizing stylus. The pins were then removed, and the sizing guide was then removed. The spikes of the femoral block was then placed into the predrilled holes, and malleted into place. Two 45 mm pins were then placed into the fixation holes on the cutting block. An delano wing was then used to ensure there would be no notching with the anterior cut. The anterior condyles were cut without notching. The anterior chord cut was then performed, followed by the posterior cut, posterior chamfer cut, and the anterior chamfer cut. The collateral ligaments were protected during the entire process. The cutting block was then removed. Any remaining bone and osteophytes were removed from the femur with a Ronguer. The femoral canal was plugged with autologous bone. Attention was then directed to the tibia. The remaining ACL was removed with a Ronguer, and the tibia was then gently subluxed forward with a large bent knee retractor. Any remaining menisci were excised. The posterior lateral corner was cauterized in order to coagulate the lateral geniculate artery. The extra medullary tibial cutting guide was then placed, set for the appropriate rotation, slope, and depth of resection. The proximal tibia cutting guide was then pinned in place. Proximal tibia was then cut and sized. The femoral trial was placed. A narrow saw blade was then used to remove the anterior intracondylar femoral bone. The CR notch trial was then placed. The tibial trial was placed with the appropriate-sized insert. The knee was able to fully extend and flex to 130 and was stable throughout all range of motion. The knee was then extended and the patella was everted. Patella was then measured, and then using an osteotomy guide, the patella was cut at the appropriate level. The patella was then measured and drilled and the patella trial was then placed. The knee was then taken through range of motion with the patella trial and the patella tracked normally using the no thumbs technique. The knee was then extended patella trial was then removed and the patella was everted. Knee was then flexed and lug holes were drilled through the femoral trial and the femoral trial was then removed. The tibial was then re-exposed, and the tibial broach guide was then pinned in place after it was set for the appropriate rotation to allow for the most coverage without overhang. The tibia was then reamed and broached. The cut surfaces of bone were then irrigated with pulsatile lavage. The knee was also irrigated with Irrisept solution. The components were then opened, the cement was mixed, and the components were then cemented in place. The cement was allowed to harden with the knee in full extension. After the cemented hardened, the tourniquet was released and hemostasis was obtained. A second gram of transexamic acid was given intravenously. The knee was again irrigated. The knee was again taken through range of motion and found to be stable throughout all range of motion of 0-130, and the patella tracked normally. The fascia was then closed with 0 Vicryl followed by #2 strata fix suture. The subcutaneous tissue was closed with 3-0 Vicryl and 3-0 strata fix. Exofin glue was used for the skin and placed with the knee in flexion. After the glue had dried, and Optafoam silver impregnated dressing was applied. The patient was then transferred to recovery room in stable condition. The engineering assistant PRERNA Wang was required due the complexity surgery and the need for a skilled medical or surgical instrument maker. She assisted in positioning, draping, retraction, and closure of the wound.
[2022-05-28] MEDS ORDERED: LACTATED RINGERS 1,000 ML IV ONE (08:53)
[2022-05-28] MEDS ORDERED: hydrOXYzine pamoate 25 MG CAP PO PRN (09:04)
[2022-05-28] MEDS ORDERED: HYDROmorphone 1 MG/ML 1 ML SYRINGE IVP PRN (09:04)
[2022-05-28] MEDS ORDERED: ONDANSETRON 4 MG/2 ML VIAL IVP PRN (09:04)
[2022-05-28] MEDS ORDERED: NALOXONE 0.4 MG/ML 1 ML VIAL IV PRN (09:04)
[2022-05-28] MEDS ORDERED: ROPIVACAINE 0.2%-NS ON-Q PUMP 1,090 MG, EMPTY PAIN BALL 1 EACH MISCELLANE PRN (09:13)
--- NOTE | 2022-05-28 10:06 | XR ---
EXAMINATION TYPE: XR knee limited RT DATE OF EXAM: 05/28/2022 COMPARISON: NONE TECHNIQUE: Two views submitted HISTORY: Post op FINDINGS: There is a prosthetic knee in near anatomic alignment. There is soft tissue edema and emphysema. IMPRESSION: 1. Postoperative change. Appears in near-anatomic alignment
--- NOTE | 2022-05-28 10:39 | P.ANPRN ---
Procedure Note - Anesthesia - Nerve Block Performed Right Adductor Canal Infusion Time Out Performed: Yes Date of Procedure: 05/28/22 Procedure Start Time: 06:42 Procedure Stop Time: 06:51 Location of Patient: PreOp Indication: Acute Post-Operative Pain, Requested by Surgeon Sedation Type: Sedate with meaningful contact maintained Preparation: Sterile Prep, Sterile Dressing Position: Supine Catheter: Indwelling Needle Types: On-Q Needle Gauge: 18 Ultrasound used to visualize needle placement: Yes Ultrasound used to observe medication spread: Yes Injectate: 0.5% Ropivacaine (see comment for volume) (15 ml) Blood Aspirated: No Pain Paresthesia on Injection Noted: No Resistance on Injection: Normal Image Stored and Saved: Yes Events: Uneventful and Well Tolerated Right iPack Single Time Out Performed: Yes Date of Procedure: 05/28/22 Procedure Start Time: 06:49 Procedure Stop Time: 06:54 Location of Patient: PreOp Indication: Acute Post-Operative Pain, Requested by Surgeon Sedation Type: Sedate with meaningful contact maintained Preparation: Sterile Prep, Sterile Dressing Position: Left Lateral Catheter: None Needle Types: Pajunk Needle Gauge: 20 Ultrasound used to visualize needle placement: Yes Ultrasound used to observe medication spread: Yes Injectate: 0.5% Ropivacaine (see comment for volume) (15 ml) Blood Aspirated: No Pain Paresthesia on Injection Noted: No Resistance on Injection: Normal Image Stored and Saved: Yes Events: Uneventful and Well Tolerated
[2022-05-28] MEDS ORDERED: ALBUTEROL NEBULIZED 2.5 MG/3 ML INHALATION PRN (11:27)
[2022-05-28] MEDS ORDERED: ERGOCALCIFEROL 1,250 MCG (50,000 IU) CAPSULE PO SCH (11:30)
--- NOTE | 2022-05-28 11:36 | P.CONS ---
History of Present Illness - Chief Complaint medical management - History of Present Illness Patient is a 61 y/o F with a pmhx of hyperlipidemia, copd, restlessleg syndrome that presents to the hospital for an elective right knee replacement. Internal medicine was consulted for medical management. At bedside patient is not complaining of any new symptoms including chest pain, palpitations, nausea, vomiting or shortness of breathe. Vital signs were checked at bedside and all unremarkable. Pain is well controlled with prn medication. Home medications have been resumed. Past Medical History Past Medical History: Asthma, COPD, GERD/Reflux, Hyperlipidemia, Osteoarthritis (OA), Thyroid Disorder, Vascular Disorder Additional Past Medical History / Comment(s): Bronchitis, arthritis in multiple joints, gout in several joints, DJD, neuropathy bilateral feet, fluid retention, PVD, hypothyroid, hypoglycemia, hypokalemia, normocytic anemia. PT HAS HAD MANY AREAS OF MRSA ON HER BODY OVER THE YEARS History of Any Multi-Drug Resistant Organisms: MRSA Year Discovered:: 2019 MDRO Source:: MULTIPLE SITES OVER THE YEARS Past Surgical History: Adenoidectomy, Section, Hysterectomy, Orthopedic Surgery, Tonsillectomy Additional Past Surgical History / Comment(s): L knee arthroscopy, R hand tendon repair, bilateral carpal tunnel releases, EGDs, colonoscopy, hemorrhoidectomy, varicose vein stripping and pt states a larger vein was "closed". RT CUBITAL TUNNEL RELEASE , RT SHOULDER, RT ARM SX TO REMOVE MRSA, RLS, Past Anesthesia/Blood Transfusion Reactions: Motion Sickness, Postoperative Nausea & Vomiting (PONV) Past Psychological History: No Psychological Hx Reported Additional Psychological History / Comment(s): Pt resides with her spouse. She uses no assistive device. Pt drives. Smoking Status: Former smoker Past Alcohol Use History: None Reported Additional Past Alcohol Use History / Comment(s): QUIT SMOKING IN 2006, STARTED SMOKING AGE 13- SMOKED 2PPD Past Drug Use History: None Reported - Past Family History Father Family Medical History: Cancer Additional Family Medical History / Comment(s): LUNG CANCER Mother Family Medical History: Cancer Additional Family Medical History / Comment(s): BLADDER CANCER Medications and Allergies Home Medications Medication Instructions Recorded Confirmed Type Budesonide/Formoterol Fumarate 2 puff INHALATION RT-BID 04/13/15 05/28/22 History [Symbicort 160-4.5 Mcg Inhaler] Gabapentin [Neurontin] 300 mg PO HS 04/13/15 05/28/22 History Omeprazole [PriLOSEC] 20 mg PO BID 04/13/15 05/28/22 History Sucralfate [Carafate] 1 gm PO QID 04/13/15 05/28/22 History Theophylline 12 Hour [Ishan-Dur] 300 mg PO BID 04/13/15 05/28/22 History allopurinoL [Zyloprim] 600 mg PO QAM 04/13/15 05/28/22 History Pramipexole [Mirapex] 0.5 mg PO HS 07/20/18 05/28/22 History Levalbuterol Hfa Inhaler [Xopenex 4 puff INHALATION RT-Q6H PRN 07/22/19 05/28/22 History Hfa Inhaler] Gabapentin [Neurontin] 100 mg PO BID@0800,1200 07/27/19 05/28/22 History Ergocalciferol (Vitamin D2) 1,250 mcg PO Q14D 11/20/20 05/28/22 History [Vitamin D2 (50,000 Iu)] Ipratropium-Albuterol Nebulize 3 ml INHALATION RT-QID 11/20/20 05/28/22 History [Duoneb 0.5 mg-3 mg/3 ml Soln] Levothyroxine Sodium [Euthyrox] 75 mcg PO DAILY 11/20/20 05/28/22 History Loratadine [Claritin] 10 mg PO DAILY 11/20/20 05/28/22 History Simvastatin [Zocor] 80 mg PO HS 11/20/20 05/28/22 History Acetaminophen Tab [Tylenol] 650 mg PO Q4HR PRN tab 12/21/20 05/28/22 Rx Albuterol Inhaler [Ventolin Hfa 2 puff INHALATION RT-QID 30 Days 12/21/20 05/28/22 Rx Inhaler] #1 puff Colchicine 0.6 mg PO DAILY 05/24/22 05/28/22 History Diclofenac Sodium [Voltaren] 75 mg PO BID 05/24/22 05/28/22 History Linaclotide [Linzess] 290 mcg PO DAILY 05/24/22 05/28/22 History Potassium Bicarbonate/Cit AC 25 meq PO BID 05/24/22 05/28/22 History [Klor-Con-Ef 25 Meq Tab Eff] Probenecid [Benemid] 250 mg PO BID 05/24/22 05/28/22 History Torsemide [Demadex] 20 mg PO DAILY 05/24/22 05/28/22 History HYDROcodone/APAP 7.5-325MG [[place] 1 - 2 tab PO Q6H PRN 7 Days #32 tab 05/28/22 Rx 7.5-325] Ondansetron Odt [Zofran Odt] 4 mg PO Q8HR PRN #14 tab 05/28/22 Rx Sennosides-Docusate Sodium 1 tab PO BID 30 Days #60 tablet 05/28/22 Rx [Senokot-S] Allergies Allergy/AdvReac Type Severity Reaction Status Date / Time milk Allergy Dyspnea,swe Verified 05/28/22 06:08 lling sulfamethoxazole Allergy Wheezing Verified 05/28/22 06:09 [From Bactrim] trimethoprim [From Bactrim] Allergy Wheezing Verified 05/28/22 06:08 aspirin AdvReac Abdominal Verified 05/28/22 06:08 Pain, headache milk proteins Allergy Dyspnea Uncoded 05/28/22 06:08 Physical Exam Vitals: Vital Signs Temp Pulse Pulse Resp BP Pulse Ox 05/28/22 11:16 97 05/28/22 09:45 75 16 107/61 99 05/28/22 09:30 66 16 107/64 99 05/28/22 09:15 66 16 94/60 99 05/28/22 09:04 96.8 F L 75 16 90/55 99 05/28/22 07:02 74 16 120/75 100 05/28/22 06:30 97.6 F 78 16 135/60 100 Intake and Output 05/27/22 05/28/22 05/28/22 22:59 06:59 14:59 Intake Total 200 850 Output Total 30 Balance 200 820 Intake: IV 200 850 Output: Estimated Blood Loss 30 Other: Weight 85.8 kg 85.8 kg general: patient is awake, alert, oriented cardio: s1 /s2 heard, no murmurs respiratory: no wheezing or rhonchi abdo: normal bs heard extremities: dressing and wrapping applied to the right lower extremity pysch: normal mood Results CBC & Chem 7: 07/26/22 06:29 Assessment and Plan Assessment: Assessment: 1. right knee arthritis s/p repair 2. hyperlipidemia 3. gout 4. restless leg syndrome Plan: -home medications have been resumed -encourage IC which is present at bedside - patient demonstrated use and aware -pain control prn as per primary -no labs completed -we will continue to follow along -rest of the recommendations per primary -please do not hesitate to contact us with any questions.
[2022-05-28] MEDS: IPRATROPIUM-ALBUTEROL 3 ML NEB INHALATION SCH ×3 (11:43→20:24)
[2022-05-28] MEDS ORDERED: ALBUTEROL HFA INHALER INHALATION SCH (12:00)
[2022-05-28] MEDS: HYDROcodone/APAP 5-325MG 1 EACH TAB PO PRN ×3 (12:35→19:52)
[2022-05-28] MEDS: GABAPENTIN 100 MG CAP PO SCH (12:36)
[2022-05-28] MEDS: PANTOPRAZOLE 40 MG TABLET PO SCH (19:50)
[2022-05-28] MEDS: ASPIRIN 81 MG PO SCH (19:50)
[2022-05-28] MEDS: PROBENECID 500 MG TAB PO SCH (19:51)
[2022-05-28] MEDS: SYMBICORT 160-4.5 MCG INHALER INHALATION SCH (20:24)
[2022-05-28] MEDS ORDERED: ATORVASTATIN 40 MG TAB PO SCH (21:00)
[2022-05-28] MEDS ORDERED: GABAPENTIN 300 MG CAP PO SCH (21:00)
[2022-05-28] MEDS ORDERED: SENNOSIDES-DOCUSATE SODIUM 1 EACH TAB PO SCH (21:00)
[2022-05-28] MEDS ORDERED: PRAMIPEXOLE 0.5 MG TAB PO SCH (21:00)
[2022-05-29] MEDS: LACTATED RINGERS 1,000 ML IV SCH (05:12)
[2022-05-29] MEDS: HYDROcodone/APAP 5-325MG 1 EACH TAB PO PRN ×2 (05:16→10:54)
[2022-05-29] MEDS ORDERED: LEVOTHYROXINE 75 MCG TAB PO SCH (06:30)
[2022-05-29] MEDS: GABAPENTIN 100 MG CAP PO SCH ×2 (07:18→11:56)
[2022-05-29] MEDS: PANTOPRAZOLE 40 MG TABLET PO SCH (07:19)
[2022-05-29] MEDS: ASPIRIN 81 MG PO SCH (07:20)
[2022-05-29] MEDS: SYMBICORT 160-4.5 MCG INHALER INHALATION SCH (07:20)
[2022-05-29] MEDS: PROBENECID 500 MG TAB PO SCH (07:21)
[2022-05-29] MEDS: IPRATROPIUM-ALBUTEROL 3 ML NEB INHALATION SCH ×2 (07:26→12:19)
--- NOTE | 2022-05-29 07:44 | P.PN ---
Progress Note - Text Progress Note Date: 05/29/22 Patient doing well. Minimal pain posterior aspect of knee. OnQ site c/d POD#1 s/p R TKA w/ adductor canal catheter - doing well
[2022-05-29 08:11] VITALS: BP 108/70; PULSE 91; RESP 18; TEMP 97.8
[2022-05-29] MEDS ORDERED: TORSEMIDE 20 MG TAB PO SCH (09:00)
[2022-05-29] MEDS ORDERED: COLCHICINE 0.6 MG EACH PO SCH (09:00)
[2022-05-29] MEDS ORDERED: NON FORMULARY DRUG (Linaclotide [Linzess] 290 MCG Capsule) PO SCH (09:00)
[2022-05-29] MEDS ORDERED: allopurinoL 300 MG TAB PO SCH (09:00)
[2022-05-29] MEDS ORDERED: LORATADINE 10 MG TAB PO SCH (09:00)
[2022-05-29] MEDS ORDERED: KETOROLAC 15 MG/ML 1 ML VIAL IVP STA (09:01)
--- NOTE | 2022-05-29 09:09 | P.DS ---
Providers Expected date of discharge: 05/29/22 Attending physician: Brian Batista Consults: 05/28/22 09:04 Consult Physician Routine Consulting Provider: Rose De La Cruz Consult Reason/Comments: medical management Do you want consulting provider notified?: Yes Primary care physician: Renetta Carmona MD - Discharge Diagnosis(es) (1) Primary localized osteoarthritis of right knee Current Visit: Yes Status: Acute (2) Status post total right knee replacement Current Visit: Yes Status: Acute Hospital Course: This is a 61-year-old female who was last seen with complaint of continued right knee pain. The patient has a known history of degenerative arthritis of the right knee and presents to discuss surgical options. After discussion and consideration the patient elects to proceed with total right knee arthroplasty. The patient is seen preoperatively by her primary care physician and cleared for surgery. The patient is admitted to [facility] for total right knee arthroplasty. The procedures performed without complication or sequelae. Patient is doing well postoperatively. Vital signs are stable at discharge. Labs are stable at discharge. the patient is ambulating well with walker with minimal assistance. The patient is discharged to home on postop day #1 pending medical clearance. Please see orders and refer to the med rec for accurate list of medications. Patient Condition at Discharge: Good Plan - Discharge Summary Discharge Rx Participant: Yes New Discharge Prescriptions: New Sennosides-Docusate Sodium [Senokot-S] 1 tab PO BID 30 Days #60 tablet HYDROcodone/APAP 7.5-325MG [[place] 7.5-325] 1 - 2 tab PO Q6H PRN 7 Days #32 tab PRN Reason: Pain Ondansetron Odt [Zofran Odt] 4 mg PO Q8HR PRN #14 tab PRN Reason: Nausea Aspirin 81 mg PO BID 30 Days #60 tab No Action Gabapentin [Neurontin] 300 mg PO HS Theophylline 12 Hour [Ishan-Dur] 300 mg PO BID Omeprazole [PriLOSEC] 20 mg PO BID Budesonide/Formoterol Fumarate [Symbicort 160-4.5 Mcg Inhaler] 2 puff INHALATION RT-BID allopurinoL [Zyloprim] 600 mg PO QAM Sucralfate [Carafate] 1 gm PO QID Pramipexole [Mirapex] 0.5 mg PO HS Levalbuterol Hfa Inhaler [Xopenex Hfa Inhaler] 4 puff INHALATION RT-Q6H PRN PRN Reason: Shortness Of Breath Gabapentin [Neurontin] 100 mg PO BID@0800,1200 Simvastatin [Zocor] 80 mg PO HS Loratadine [Claritin] 10 mg PO DAILY Levothyroxine Sodium [Euthyrox] 75 mcg PO DAILY Ipratropium-Albuterol Nebulize [Duoneb 0.5 mg-3 mg/3 ml Soln] 3 ml INHALATION RT-QID Ergocalciferol (Vitamin D2) [Vitamin D2 (50,000 Iu)] 1,250 mcg PO Q14D Acetaminophen Tab [Tylenol] 650 mg PO Q4HR PRN tab PRN Reason: Fever>101 Albuterol Inhaler [Ventolin Hfa Inhaler] 2 puff INHALATION RT-QID 30 Days #1 puff Probenecid [Benemid] 250 mg PO BID Diclofenac Sodium [Voltaren] 75 mg PO BID Linaclotide [Linzess] 290 mcg PO DAILY Colchicine 0.6 mg PO DAILY Torsemide [Demadex] 20 mg PO DAILY Potassium Bicarbonate/Cit AC [Klor-Con-Ef 25 Meq Tab Eff] 25 meq PO BID Discharge Medication List Budesonide/Formoterol Fumarate [Symbicort 160-4.5 Mcg Inhaler] 2 puff INHALATION RT-BID 04/13/15 [History] Gabapentin [Neurontin] 300 mg PO HS 04/13/15 [History] Omeprazole [PriLOSEC] 20 mg PO BID 04/13/15 [History] Sucralfate [Carafate] 1 gm PO QID 04/13/15 [History] Theophylline 12 Hour [Ishan-Dur] 300 mg PO BID 04/13/15 [History] allopurinoL [Zyloprim] 600 mg PO QAM 04/13/15 [History] Pramipexole [Mirapex] 0.5 mg PO HS 07/20/18 [History] Levalbuterol Hfa Inhaler [Xopenex Hfa Inhaler] 4 puff INHALATION RT-Q6H PRN 07/22/19 [History] Gabapentin [Neurontin] 100 mg PO BID@0800,1200 07/27/19 [History] Ergocalciferol (Vitamin D2) [Vitamin D2 (50,000 Iu)] 1,250 mcg PO Q14D 11/20/20 [History] Ipratropium-Albuterol Nebulize [Duoneb 0.5 mg-3 mg/3 ml Soln] 3 ml INHALATION RT-QID 11/20/20 [History] Levothyroxine Sodium [Euthyrox] 75 mcg PO DAILY 11/20/20 [History] Loratadine [Claritin] 10 mg PO DAILY 11/20/20 [History] Simvastatin [Zocor] 80 mg PO HS 11/20/20 [History] Acetaminophen Tab [Tylenol] 650 mg PO Q4HR PRN tab 12/21/20 [Rx] Albuterol Inhaler [Ventolin Hfa Inhaler] 2 puff INHALATION RT-QID 30 Days #1 puff 12/21/20 [Rx] Colchicine 0.6 mg PO DAILY 05/24/22 [History] Diclofenac Sodium [Voltaren] 75 mg PO BID 05/24/22 [History] Linaclotide [Linzess] 290 mcg PO DAILY 05/24/22 [History] Potassium Bicarbonate/Cit AC [Klor-Con-Ef 25 Meq Tab Eff] 25 meq PO BID 05/24/22 [History] Probenecid [Benemid] 250 mg PO BID 05/24/22 [History] Torsemide [Demadex] 20 mg PO DAILY 05/24/22 [History] Aspirin 81 mg PO BID 30 Days #60 tab 05/28/22 [Rx] HYDROcodone/APAP 7.5-325MG [[place] 7.5-325] 1 - 2 tab PO Q6H PRN 7 Days #32 tab 05/28/22 [Rx] Ondansetron Odt [Zofran Odt] 4 mg PO Q8HR PRN #14 tab 05/28/22 [Rx] Sennosides-Docusate Sodium [Senokot-S] 1 tab PO BID 30 Days #60 tablet 05/28/22 [Rx] Follow up Appointment(s)/Referral(s): Brian Batista DO [Doctor of Osteopathic Medicine] - 2 Weeks Activity/Diet/Wound Care/Special Instructions: Weight bear as tolerated on operative knee with a walker. Keep Optifoam dressing intact for 7 days. May shower over dressing 48 hours post-op. Take aspirin 81mg BID x 4 weeks for blood clot prevention. Follow-up in the office with Dr. Batista in 2 weeks. Call the office with any questions or concerns, Discharge Disposition: HOME WITH HOME HEALTH SERVICES
[2022-05-29 09:34] LABS: Basophils # (A) 0.01 X 10*3/uL (0.00-0.10); Basophils % (A) 0.2 %; Eosinophils % (A) 1.5 %; HGB 9.3 g/dL (12.0-15.0); Immature Grans, Automated 0.3 %; Lymphocytes # (A) 1.62 X 10*3/uL (0.90-5.00); Lymphocytes % (A) 24.6 %; MCH 27.9 pg (27.0-32.0); MCV 90.1 fL (80.0-97.0); Mean Platelet Volume 10.1 fL (9.5-12.2); Monocytes # (A) 0.87 X 10*3/uL (0.20-1.00); Monocytes % (A) 13.2 %; NRBC Per 100 WBC 0 /100 WBCS (0.0-0.0); Neutrophils # (A) 3.97 X 10*3/uL (1.80-7.70); Neutrophils % (A) 60.2 %; Platelet Count 248 X 10*3/uL (140-440); RBC 3.33 X 10*6/uL (4.10-5.20); WBC 6.59 X 10*3/uL (4.50-10.00)
== END 2022-05-29 13:40 | disposition home health service (06) ==
LOC: OR 05:31 → 4SSUR 09:02 → OR 05-29 13:40
PROVIDERS: ATTEND Orthopaedic Surgery
DX: M17.11 Unilateral primary osteoarthritis, right knee (principal); E78.5 Hyperlipidemia, unspecified; E03.9 Hypothyroidism, unspecified; N18.30 Chronic kidney disease, stage 3 unspecified; K30 Functional dyspepsia; J44.9 Chronic obstructive pulmonary disease, unspecified; G62.9 Polyneuropathy, unspecified; K21.9 Gastro-esophageal reflux disease without esophagitis; Z97.3 Presence of spectacles and contact lenses; M10.9 Gout, unspecified; J98.4 Other disorders of lung; Z83.3 Family history of diabetes mellitus; Z82.49 Family history of ischemic heart disease and other diseases of the circulatory system; Z90.710 Acquired absence of both cervix and uterus; Z98.891 History of uterine scar from previous surgery; Z98.890 Other specified postprocedural states; Z87.891 Personal history of nicotine dependence; Z86.14 Personal history of Methicillin resistant Staphylococcus aureus infection; Z86.16 Personal history of COVID-19; Z80.8 Family history of malignant neoplasm of other organs or systems; Z87.11 Personal history of peptic ulcer disease; Z79.890 Hormone replacement therapy; Z79.51 Long term (current) use of inhaled steroids; Z79.899 Other long term (current) drug therapy; Z88.6 Allergy status to analgesic agent; Z88.2 Allergy status to sulfonamides; Z88.0 Allergy status to penicillin; Z91.011 Allergy to milk products; Z91.018 Allergy to other foods; Z91.09 Other allergy status, other than to drugs and biological substances
CPT/HCPCS: 94640; 94760 ×2; 97116; 97161; 97535; 97166; 64999; 64448; 76942; 84132; 85025; 88300; 73560; 27447; C1713; C1776; J2250; J1100; J0690; J2405; J3010; J2795 ×2; J1885; J2370; J2704

== ENCOUNTER → 2022-07-18 | Outpatient (CLI) | payer MEDICARE, OTHER ==
[2022-07-18 19:11] LABS: African American GFR (CKD) 70.1 (60.0-200.0); Albumin 4.7 g/dL (3.8-4.9); Albumin/Globulin Ratio 2.65 (1.60-3.17); BUN/Creat Ratio 18.71 Ratio (12.00-20.00); Blood Urea Nitrogen 18.9 mg/dL (9.0-27.0); Carbon Dioxide 25.8 mmol/L (20.0-27.5); Globulin 1.8 g/dL (1.6-3.3); Non-African American GFR(CKD) 60.5 (60.0-200.0); Total Bilirubin 0.2 mg/dL (0.30-1.20); Total Protein 6.5 g/dL (6.2-8.2)
== END | disposition home or self-care (01) ==
LOC: LABWHC1 13:51
PROVIDERS: ATTEND Internal Medicine Endocrinology, Diabetes & Metabolism
DX: E21.0 Primary hyperparathyroidism (principal)
CPT/HCPCS: 36415; 80053; 82306; 83970

== ENCOUNTER → 2022-11-18 | Outpatient (CLI) | payer MEDICARE, OTHER ==
[2022-11-18 15:12] LABS: African American GFR (CKD) 39.6 (60.0-200.0); Albumin 4.8 g/dL (3.8-4.9); Albumin/Globulin Ratio 2.6 (1.60-3.17); Anion Gap 14.5 mmol/L (10.00-18.00); BUN/Creat Ratio 19.57 Ratio (12.00-20.00); Blood Urea Nitrogen 31.5 mg/dL (9.0-27.0); Calcium 10.6 mg/dL (8.7-10.3); Carbon Dioxide 25.4 mmol/L (20.0-27.5); Globulin 1.8 g/dL (1.6-3.3); Non-African American GFR(CKD) 34.2 (60.0-200.0); Potassium 3.8 mmol/L (3.5-5.5); Total Bilirubin 0.3 mg/dL (0.30-1.20); Total Protein 6.6 g/dL (6.2-8.2)
== END ==
LOC: LABWHC1 09:28
PROVIDERS: ATTEND Internal Medicine Endocrinology, Diabetes & Metabolism
DX: E21.0 Primary hyperparathyroidism (principal)
CPT/HCPCS: 36415; 80053; 82306; 83970

== ENCOUNTER → 2022-11-18 | Outpatient (CLI) | payer MEDICARE, OTHER ==
--- NOTE | 2022-11-18 10:05 | XR ---
EXAMINATION TYPE: XR chest 2V, XR ribs RT DATE OF EXAM: 11/18/2022 9:58 AM COMPARISON: Chest radiographs from TECHNIQUE: XR chest 2V, XR ribs RT frontal lateral views of the chest were obtained with oblique view s of the right ribs. CLINICAL INDICATION:Female, 62 years old with history of R07.82 INTERCOSTAL PAIN; FINDINGS: Lungs/Pleura: There is no evidence of pleural effusion, focal consolidation, or pneumothorax. Pulmonary vascularity: Unremarkable. Heart/mediastinum: Cardiomediastinal silhouette is unremarkable. Musculoskeletal: Multiple level degenerative disc disease changes seen throughout the spine. No acute osseous abnormality. IMPRESSION: No acute cardiopulmonary disease/process.
== END | disposition home or self-care (01) ==
LOC: RADXRMAIN 09:33
PROVIDERS: ATTEND Internal Medicine
DX: R07.82 Intercostal pain (principal)
CPT/HCPCS: 71046

== ENCOUNTER → 2023-02-27 | Outpatient (CLI) | payer MEDICARE, OTHER ==
[2023-02-27 20:49] LABS: African American GFR (CKD) 49.9 (60.0-200.0); Albumin 4.6 g/dL (3.8-4.9); Albumin/Globulin Ratio 2.36 (1.60-3.17); BUN/Creat Ratio 17.67 Ratio (12.00-20.00); Blood Urea Nitrogen 23.5 mg/dL (9.0-27.0); Calcium 10.8 mg/dL (8.7-10.3); Carbon Dioxide 27.8 mmol/L (20.0-27.5); Globulin 1.9 g/dL (1.6-3.3); Potassium 3.9 mmol/L (3.5-5.5); Total Bilirubin 0.2 mg/dL (0.30-1.20); Total Protein 6.5 g/dL (6.2-8.2)
== END | disposition home or self-care (01) ==
LOC: LABWHC1 07:34
PROVIDERS: ATTEND Internal Medicine Endocrinology, Diabetes & Metabolism
DX: E21.0 Primary hyperparathyroidism (principal)
CPT/HCPCS: 36415; 80053; 82306; 83970

== ENCOUNTER → 2023-03-24 | Outpatient (CLI) | payer OTHER, MEDICARE ==
--- NOTE | 2023-03-24 09:22 | BD ---
EXAMINATION TYPE: Axial Bone Density (MG DEXA axial skeleton) MG DEXA appendicular skeleton DATE OF EXAM: 03/24/2023 CLINICAL HISTORY: 62 years old Female. ICD-10 CODE: Primary hyperparathyroidism E21.0 Height: 58.4 Weight: 183 FRAX RISK QUESTIONS: Glucocorticoids (More than 3mos): yes (Ex: prednisone, prednisolone, methylprednisolone, dexamethasone, and hydrocortisone). History of Fracture in Adulthood: yes Secondary Osteoporosis: yes 2. Hyperthyroidism: yes 3. Menopause before 45: yes RISK FACTORS HISTORY OF: hx of lt hand fx, metatarsals as an adult Diet low in dairy products/other sources of calcium: yes, allergic Postmenopausal woman: yes, at age 39 yrs old, hormonal at age 44 yrs old Lost more than 2 inches in height since high school: yes Hyperparathyroidism: yes Adrenal Insufficiency: no MEDICATIONS: Prednisone or other steroids: symbacort for copd, inhalers, rescue inhaler prn, How Long: for over 20 yrs Thyroid Medications: yes, synthroid for about 10 yrs Additional Medications: reflux meds, statin for cholesterol, vit d high dose, Additional History: reflux, cholesterol, copd, thyroid, hypoparathyroidism, milk allergy, early menop ause EXAM MEASUREMENTS: Bone mineral densitometry was performed using the [employer] System. Bone mineral density as measured about the Lumbar spine is: ----- L1-L4(G/cm2): 1.556 T Score Values are as follows: ----- L1: 2.0 ----- L2: 2.0 ----- L3: 4.0 ----- L4: 4.1 ----- L1-L4: 3.1 Z Score Values are as follows: ----- L1: 2.7 ----- L2: 2.7 ----- L3: 4.7 ----- L4: 4.8 ----- L1-L4: 3.8 Bone mineral density has: Increased 18.2% SINCE....05.31.2019 Bone mineral density about the R hip (g/cm2): 0.877 Bone mineral density about the L hip (g/cm2): 1.002 T Score values are as follows: -----R Neck: -1.1 -----L Neck: -0.2 -----R Total: -10 -----L Total: 0.0 Z Score values are as follows: -----R Neck: -0.2 -----L Neck: 0.7 -----R Total: -0.5 -----L Total: 0.5 Bone mineral density has: Decreased -0.1% since...05.31.2019 Bone mineral density about the L Wrist (g/cm2): 0.607 T Score values are as follows: -----Dist. R+U: -1.3 -----Prox. R+U: -0.8 -----Radius total: -1.0 Z Score values are as follows: -----Dist. R+U: -0.3 -----Prox. R+U: 0.3 -----Radius total: 0.0 Bone mineral density is the first scan of forearm for this patient. FRAX%s: The graph provided illustrates a 18.2% chance for a major osteoporotic fx and a 1.3% chance f or the hips probability for fx in 10 years time. IMPRESSION: Osteopenia (T Score between -2.5 and -1). There is slightly increased risk of fracture and the patient may be considered for treatment. Re-Screen 2-5 years. NOTE: T-SCORE=SD OF THE YOUNG ADULT MEAN.
== END | disposition home or self-care (01) ==
LOC: RADBDWWP 06:48
PROVIDERS: ATTEND Surgery
DX: M85.88 Other specified disorders of bone density and structure, other site (principal); E21.0 Primary hyperparathyroidism; E05.90 Thyrotoxicosis, unspecified without thyrotoxic crisis or storm; J44.9 Chronic obstructive pulmonary disease, unspecified; K21.9 Gastro-esophageal reflux disease without esophagitis; Z78.0 Asymptomatic menopausal state
CPT/HCPCS: 77080; 77081

== ENCOUNTER → 2023-05-28 | Outpatient (CLI) | payer OTHER, MEDICARE ==
[2023-05-28 17:48] LABS: ALT 26 U/L (8-44); AST 23 U/L (13-35); Albumin/Globulin Ratio 2.27 Ratio (1.60-3.17); Alkaline Phosphatase 93 U/L (41-126); BUN/Creat Ratio 15.47 Ratio (12.00-20.00); Blood Urea Nitrogen 29.4 mg/dL (9.0-27.0); Calcium 11.7 mg/dL (8.7-10.3); Carbon Dioxide 20.4 mmol/L (21.6-31.8); Chloride 105 mmol/L (96-109); Globulin 2.2 d/dL (1.6-3.3); Glucose 84 mg/dL (70-110); Potassium 3.4 mmol/L (3.5-5.5); Sodium 140 mmol/L (135-145); Total Bilirubin <0.2 mg/dL (0.3-1.2); Total Protein 7.2 d/dL (6.2-8.2)
== END | disposition home or self-care (01) ==
LOC: LABWHC1 08:45
PROVIDERS: ATTEND Internal Medicine Endocrinology, Diabetes & Metabolism
DX: E21.0 Primary hyperparathyroidism (principal)
CPT/HCPCS: 36415; 80053; 82306; 83970

== ENCOUNTER → 2023-07-01 | Outpatient (CLI) | payer OTHER, MEDICARE ==
[2023-07-01 16:29] LABS: ALT 21 U/L (8-44); AST 20 U/L (13-35); Albumin 5.3 d/dL (3.8-4.9); Albumin/Globulin Ratio 2.41 Ratio (1.60-3.17); Alkaline Phosphatase 102 U/L (41-126); BUN/Creat Ratio 15.87 Ratio (12.00-20.00); Blood Urea Nitrogen 23.8 mg/dL (9.0-27.0); Calcium 11.8 mg/dL (8.7-10.3); Carbon Dioxide 24.2 mmol/L (21.6-31.8); Chloride 102 mmol/L (96-109); Globulin 2.2 d/dL (1.6-3.3); Glucose 80 mg/dL (70-110); Potassium 3.5 mmol/L (3.5-5.5); Sodium 141 mmol/L (135-145); Total Bilirubin 0.3 mg/dL (0.3-1.2); Total Protein 7.5 d/dL (6.2-8.2)
== END | disposition home or self-care (01) ==
LOC: LABWHC1 08:44
PROVIDERS: ATTEND Internal Medicine Endocrinology, Diabetes & Metabolism
DX: E21.0 Primary hyperparathyroidism (principal)
CPT/HCPCS: 36415; 80053; 82306; 83970

== ENCOUNTER → 2023-08-22 | Outpatient (CLI) | payer OTHER, MEDICARE ==
[2023-08-22 17:38] LABS: Calcium 9.5 mg/dL (8.7-10.3)
== END | disposition home or self-care (01) ==
LOC: LABWHC1 09:53
PROVIDERS: ATTEND Surgery
DX: E89.2 Postprocedural hypoparathyroidism (principal)
CPT/HCPCS: 36415; 82306; 82310; 83970

== ENCOUNTER → 2023-09-15 | Outpatient (CLI) | payer OTHER, MEDICARE ==
[2023-09-15 18:43] LABS: ALT 35 U/L (8-44); AST 21 U/L (13-35); Albumin 4.6 g/dL (3.8-4.9); Alkaline Phosphatase 96 U/L (41-126); BUN/Creat Ratio 18.77 Ratio (12.00-20.00); Blood Urea Nitrogen 24.4 mg/dL (9.0-27.0); Calcium 10.1 mg/dL (8.7-10.3); Carbon Dioxide 21.8 mmol/L (21.6-31.8); Chloride 104 mmol/L (96-109); Glucose 96 mg/dL (70-110); Potassium 3.8 mmol/L (3.5-5.5); Sodium 141 mmol/L (135-145); Total Bilirubin 0.2 mg/dL (0.3-1.2); Total Protein 6.6 g/dL (6.2-8.2)
== END | disposition home or self-care (01) ==
LOC: LABWHC1 07:20
PROVIDERS: ATTEND Internal Medicine Endocrinology, Diabetes & Metabolism
DX: E21.0 Primary hyperparathyroidism (principal)
CPT/HCPCS: 36415; 80053; 82306; 83970

== ENCOUNTER → 2024-03-26 | Outpatient (CLI) | payer OTHER, MEDICARE ==
[2024-03-26 15:33] LABS: ALT 21 U/L (8-44); AST 18 U/L (13-35); Albumin 4.7 g/dL (3.8-4.9); Albumin/Globulin Ratio 2.24 Ratio (1.60-3.17); Alkaline Phosphatase 95 U/L (41-126); BUN/Creat Ratio 25.47 Ratio (12.00-20.00); Blood Urea Nitrogen 38.2 mg/dL (9.0-27.0); Calcium 9.7 mg/dL (8.7-10.3); Chloride 108 mmol/L (96-109); Globulin 2.1 g/dL (1.6-3.3); Glucose 83 mg/dL (70-110); Potassium 4.4 mmol/L (3.5-5.5); Sodium 142 mmol/L (135-145); T4, Free (Free Thyroxine) 1.54 ng/dL (0.80-1.80); Total Bilirubin 0.2 mg/dL (0.3-1.2); Total Protein 6.8 g/dL (6.2-8.2)
== END | disposition home or self-care (01) ==
LOC: LABWHC1 10:08
PROVIDERS: ATTEND Internal Medicine Endocrinology, Diabetes & Metabolism
DX: E55.9 Vitamin D deficiency, unspecified (principal); E04.2 Nontoxic multinodular goiter; Z86.39 Personal history of other endocrine, nutritional and metabolic disease
CPT/HCPCS: 36415; 80053; 82306; 83970; 84439; 84443

== ENCOUNTER → 2024-04-09 | Outpatient (CLI) | payer OTHER, MEDICARE ==
[2024-04-09 17:20] LABS: BUN/Creat Ratio 21.62 Ratio (12.00-20.00); Blood Urea Nitrogen 28.1 mg/dL (9.0-27.0); Carbon Dioxide 21.6 mmol/L (21.6-31.8); Chloride 107 mmol/L (96-109); Glucose 92 mg/dL (70-110); Potassium 4.7 mmol/L (3.5-5.5); Sodium 140 mmol/L (135-145)
== END | disposition home or self-care (01) ==
LOC: LABWHC1 08:44
PROVIDERS: ATTEND Internal Medicine
DX: N18.31 Chronic kidney disease, stage 3a (principal)
CPT/HCPCS: 36415; 80048

== ENCOUNTER → 2024-05-27 | Outpatient (CLI) | payer OTHER, MEDICARE ==
[2024-05-27 15:46] LABS: % Iron Saturation 6.07 (12.00-45.00); ALT 18 U/L (8-44); AST 16 U/L (13-35); Albumin 4.5 g/dL (3.8-4.9); Albumin/Globulin Ratio 2.25 Ratio (1.60-3.17); Alkaline Phosphatase 94 U/L (41-126); BUN/Creat Ratio 19.17 Ratio (12.00-20.00); Calcium 9.7 mg/dL (8.7-10.3); Carbon Dioxide 19.5 mmol/L (21.6-31.8); Chloride 109 mmol/L (96-109); Ferritin 21.3 ng/mL (10.0-291.0); Glucose 79 mg/dL (70-110); Iron 23 UG/DL (50-170); Magnesium 2.3 mg/dL (1.5-2.4); Phosphorus 4.3 mg/dL (2.4-5.1); Sodium 142 mmol/L (135-145); Total Bilirubin 0.3 mg/dL (0.3-1.2); Total Iron Binding Capacity 379 UG/DL (228-460); Total Protein 6.5 g/dL (6.2-8.2); Uric Acid 7.1 mg/dL (2.9-7.7)
[2024-05-27 16:52] LABS: HCT 33.7 % (37.2-46.3); HGB 9.9 g/dL (12.0-15.0); MCH 25.5 pg (27.0-32.0); MCHC 29.4 g/dL (32.0-37.0); MCV 86.9 FL (80.0-97.0); Mean Platelet Volume 11.1 FL (9.5-12.2); NRBC Per 100 WBC 0 X 10*3/uL (0.00-0.01); Platelet Count 354 X 10*3/uL (140-440); RBC 3.88 X 10*6/uL (4.10-5.20); RDW 18.8 % (11.5-14.5); WBC 6.04 X 10*3/uL (4.50-10.00)
[2024-05-27 18:20] LABS: Appearance,Urine Clear (Clear); Bilirubin,Urine Negative (Negative); Blood,Urine Negative (Negative); Color,Urine Yellow (Yellow); Ketones,Urine Negative (Negative); Nitrite,Urine Negative (Negative); Specific Gravity,Urine 1.009 (1.001-1.030); Urobilinogen,Urine 0.2 E.U./DL
[2024-05-27 19:21] LABS: Free Kappa Lt Chain Qnt, Serum 3.04 mg/dL (0.33-1.94); Free Lambda Lt Chain Qnt, Seru 1.65 mg/dL (0.57-2.63)
[2024-05-27 20:28] LABS: Microalbumin Creatinine Ratio <61 mg/g Cr (0-30); Urine Creatinine 19.8 mg/dL (28.0-217.0)
== END | disposition home or self-care (01) ==
LOC: LABWHC1 11:09
PROVIDERS: ATTEND Internal Medicine
DX: N18.31 Chronic kidney disease, stage 3a (principal); D63.1 Anemia in chronic kidney disease; N25.81 Secondary hyperparathyroidism of renal origin; M10.9 Gout, unspecified; E55.9 Vitamin D deficiency, unspecified; N39.0 Urinary tract infection, site not specified; R80.9 Proteinuria, unspecified
CPT/HCPCS: 36415; 80053; 81003; 82043; 82306; 82570; 82728; 83540; 83550; 83735; 83883; 83970; 84100; 84166; 84550; 85027; 86334

== ENCOUNTER → 2024-11-27 | Outpatient (CLI) | payer BC, MEDICARE ==
[2024-11-27 09:21] LABS: Appearance,Urine Clear (Clear); Bilirubin,Urine Negative (Negative); Blood,Urine Negative (Negative); Color,Urine Yellow; Glucose,Urine (UA) 1+ (Negative); Hyaline Casts,Urine 1 /lpf (0-2); Ketones,Urine Negative (Negative); Leukocyte Esterase,Urine Negative (Negative); Mucus,Urine Occasional /hpf; Nitrite,Urine Negative (Negative); Protein,Urine 1+ (Negative); RBC,Urine <1 /hpf (0-5); Specific Gravity,Urine 1.019 (1.001-1.035); Squamous Epithelial Cell,Urine 2 /hpf (0-4); Urobilinogen,Urine <2.0 mg/dL (<2.0); WBC,Urine 1 /hpf (0-5)
[2024-11-27 12:50] LABS: HCT 43.9 % (37.2-46.3); HGB 14.2 g/dL (12.0-15.0); MCH 30.2 pg (27.0-32.0); MCHC 32.3 g/dL (32.0-37.0); MCV 93.4 FL (80.0-97.0); Mean Platelet Volume 9.7 FL (9.5-12.2); NRBC Per 100 WBC 0 X 10*3/uL (0.00-0.01); Platelet Count 280 X 10*3/uL (140-440); RDW 16.3 % (11.5-14.5); WBC 5.69 X 10*3/uL (4.50-10.00)
[2024-11-27 13:27] LABS: ALT 53 U/L (8-44); AST 26 U/L (13-35); Albumin 4.2 g/dL (3.8-4.9); Alkaline Phosphatase 92 U/L (41-126); BUN/Creat Ratio 14.78 Ratio (12.00-20.00); Blood Urea Nitrogen 13.3 mg/dL (9.0-27.0); Calcium 9.7 mg/dL (8.7-10.3); Carbon Dioxide 23.3 mmol/L (21.6-31.8); Chloride 106 mmol/L (96-109); Globulin 2.1 g/dL (1.6-3.3); Glucose 83 mg/dL (70-110); Magnesium 2.4 mg/dL (1.5-2.4); Phosphorus 3.5 mg/dL (2.4-5.1); Potassium 3.5 mmol/L (3.5-5.5); Sodium 143 mmol/L (135-145); Total Bilirubin 0.4 mg/dL (0.3-1.2); Total Protein 6.3 g/dL (6.2-8.2)
[2024-11-28 07:36] LABS: Protein/Creatinine Ratio,Urine 0.235
== END | disposition home or self-care (01) ==
LOC: LABWHC1 08:17
PROVIDERS: ATTEND Internal Medicine
DX: N18.31 Chronic kidney disease, stage 3a (principal)
CPT/HCPCS: 36415; 80053; 81001; 82043; 82570; 83735; 84100; 84156; 85027

== ENCOUNTER → 2025-04-13 | Outpatient (CLI) | payer BC, MEDICARE ==
[2025-04-13 16:38] LABS: ALT 41 U/L (8-44); AST 35 U/L (13-35); Albumin 4.3 g/dL (3.8-4.9); Albumin/Globulin Ratio 2.39 Ratio (1.60-3.17); Alkaline Phosphatase 92 U/L (41-126); BUN/Creat Ratio 16.78 Ratio (12.00-20.00); Blood Urea Nitrogen 15.1 mg/dL (9.0-27.0); Calcium 9.8 mg/dL (8.7-10.3); Carbon Dioxide 27.3 mmol/L (21.6-31.8); Chloride 104 mmol/L (96-109); Globulin 1.8 g/dL (1.6-3.3); Glucose 83 mg/dL (70-110); Potassium 4.1 mmol/L (3.5-5.5); Sodium 142 mmol/L (135-145); Total Bilirubin 0.2 mg/dL (0.3-1.2); Total Protein 6.1 g/dL (6.2-8.2)
== END | disposition home or self-care (01) ==
LOC: LABWHC1 10:28
PROVIDERS: ATTEND Internal Medicine Endocrinology, Diabetes & Metabolism
DX: E55.9 Vitamin D deficiency, unspecified (principal); E04.2 Nontoxic multinodular goiter; Z86.39 Personal history of other endocrine, nutritional and metabolic disease
CPT/HCPCS: 36415; 80053; 82306; 83970; 84443

== ENCOUNTER → 2025-04-28 | Outpatient (CLI) | payer BC, MEDICARE ==
[2025-04-28 20:09] LABS: Basophils # (A) 0.06 X 10*3/uL (0.00-0.10); Basophils % (A) 0.7 %; Eosinophils # (A) 0.17 X 10*3/uL (0.04-0.35); Eosinophils % (A) 1.9 %; HCT 39.7 % (37.2-46.3); HGB 12.5 g/dL (12.0-15.0); Lymphocytes # (A) 1.72 X 10*3/uL (0.90-5.00); Lymphocytes % (A) 19.1 %; MCH 27.8 pg (27.0-32.0); MCHC 31.5 g/dL (32.0-37.0); MCV 88.2 FL (80.0-97.0); Mean Platelet Volume 10.3 FL (9.5-12.2); Monocytes # (A) 0.69 X 10*3/uL (0.20-1.00); Monocytes % (A) 7.7 %; NRBC Per 100 WBC 0 X 10*3/uL (0.00-0.01); Platelet Count 417 X 10*3/uL (140-440); RDW 14.1 % (11.5-14.5); WBC 8.99 X 10*3/uL (4.50-10.00)
[2025-04-28 22:02] LABS: Microalbumin Creatinine Ratio <20 mg/g Cr (0-30)
[2025-04-28 22:04] LABS: ALT 18 U/L (8-44); AST 17 U/L (13-35); Albumin 4.4 g/dL (3.8-4.9); Alkaline Phosphatase 91 U/L (41-126); BUN/Creat Ratio 21.22 Ratio (12.00-20.00); Blood Urea Nitrogen 19.1 mg/dL (9.0-27.0); Calcium 10.1 mg/dL (8.7-10.3); Chloride 100 mmol/L (96-109); Glucose 99 mg/dL (70-110); Magnesium 2.2 mg/dL (1.5-2.4); Potassium 3.8 mmol/L (3.5-5.5); Sodium 139 mmol/L (135-145); Total Bilirubin 0.3 mg/dL (0.3-1.2); Total Protein 6.4 g/dL (6.2-8.2)
== END | disposition home or self-care (01) ==
LOC: LABWHC1 13:09
PROVIDERS: ATTEND Nurse Practitioner Acute Care
DX: N18.31 Chronic kidney disease, stage 3a (principal); D64.9 Anemia, unspecified; R80.9 Proteinuria, unspecified
CPT/HCPCS: 36415; 80053; 82043; 82570; 83735; 84100; 85025